=== PATIENT | female | born 1995 | race Caucasian/White ===

== ENCOUNTER 2022-01-31 08:25 | Emergency (ER) | payer OTHER, SELFPAY ==
[2022-01-31 08:36] VITALS: BP 158/97; PULSE 100; RESP 16; TEMP 36.6; O2SAT 99; BMI 29.4
--- NOTE | 2022-01-31 09:23 | ED.SKABFB ---
HPI - Skin/Abscess/Foreign Bdy General Chief complaint: Skin/Abscess/Foreign Body Stated complaint: anxiety. stepped on needle in alley way Time Seen by Provider: 01/31/22 08:40 Source: patient Mode of arrival: ambulatory History of Present Illness HPI narrative: 26-year-old female with no significant past medical history presenting to the ED complaining of needlestick to right great toe s/p stepping on needle in the alleyway around 02:00AM. Stick did draw blood, admits to washing area right away. Reports tetanus is up-to-date. Denies injury to other area Onset (ago): hour(s) Related Data Allergies Allergy/AdvReac Type Severity Reaction Status Date / Time Penicillins [PENICILLINS] Allergy Unknown THROAT Verified 01/31/22 08:36 CLOSES Review of Systems Review of Systems: Constitutional: No Fever, No Chills ENT/Mouth: No Ear Pain, No Nasal Congestion, No sore throat, No Rhinorrhea, No Swallowing Difficulty Cardiovascular: No Chest Pain, No SOB Respiratory: No Cough, No Wheezing Gastrointestinal: No Nausea, No Vomiting, No Diarrhea, No Constipation, No Abdominal pain Genitourinary: No Dysuria, No Urinary Frequency, No Flank Pain Musculoskeletal: No joint pain, No Myalgias, No Joint Swelling Skin: + Skin Lesions, No rash Neuro: No Weakness, No Numbness, No Paresthesias Yes all other systems are reviewed and are negative Constitutional: Constitutional: Reports as per HPI [facility] Past Medical History Attestation statement: The following information was validated with the patient. Social History Social History Advance Directives: No Advance Directives Information Provided: No Physical Exam Vital Signs: Vital Signs: Last Vital Signs Temp 97.8 F 01/31/22 08:36 Pulse 100 01/31/22 08:36 Resp 16 01/31/22 08:36 BP 158/97 H 01/31/22 08:36 Pulse Ox 99 01/31/22 08:36 O2 Del Method 01/31/22 08:36 BMI result Body Mass Index 29.4 Const: General: cooperative, healthy appearing, no acute distress and poor hygiene Orientation/consciousness: patient oriented x3 Limitations: no limitations HEENT: Head: Yes normal to inspection and Yes atraumatic Ears: hearing grossly normal bilaterally General nose exam: Normal external nose present Face and sinus: Yes normal facial exam Eyes: General: appearance normal, both eyes and all related structures EOM: EOMs intact bilaterally Neck: Neck: Yes normal visual inspection and Yes no meningeal signs Resp: Effort & Inspection: normal respiratory effort and no respiratory distress Cardio: Rate: regular rate Peripheral pulses: dorsalis pedis present Skin: Other: No appreciable puncture wound. Rashes: no rashes Wounds: no wounds Neuro: General: patient oriented x3, tone normal and no meningeal signs Gait exam (Neuro): Normal gait present Extrem: General: Yes normal to inspection Course Course Course Narrative: 949--patient eloped prior to labs or treatment. Tried to get her to come back however stated she wanted out of here MDM - Skin/Abscess/Foreign Bdy MDM Narrative Medical decision making narrative: 26-year-old female with no significant past medical history presenting to the ED complaining of needlestick to right great toe s/p stepping on needle in the alleyway around 02:00AM. On exam vital signs stable, no appreciable open wound/puncture or foreign body. This was an unknown needle. Discussed risks with patient, she is interested in Post exposure prophylaxis. Will obtain labs and give PEP starter kit Medical Records Attestation: I reviewed the patient's medical records. Lab Data Attestation: I reviewed the patient's lab results. Discharge Plan Discharge Clinical Impression: Accidental hypodermic needlestick injury Patient Disposition: Elopement Instructions: Needle Stick Injuries (ED) Referrals: Kallie Dumont MD [Physician] -
== END 2022-01-31 10:35 | disposition left against medical advice (07) ==
PROVIDERS: Emergency Provider Emergency Medicine; PCP Internal Medicine
DX: S91.131A Puncture wound without foreign body of right great toe without damage to nail, initial encounter (principal); F41.1 Generalized anxiety disorder; Y28.9XXA Contact with unspecified sharp object, undetermined intent, initial encounter; Y93.9 Activity, unspecified; Y92.9 Unspecified place or not applicable; Y99.9 Unspecified external cause status
CPT/HCPCS: 99281; 99282

== ENCOUNTER 2022-02-02 13:41 | Emergency (ER) | payer OTHER, SELFPAY ==
--- NOTE | 2022-02-02 13:56 | ECG_ITS ---
Test Reason : med clearance Blood Pressure : / mmHG Vent. Rate : 061 BPM Atrial Rate : 061 BPM P-R Int : 122 ms QRS Dur : 086 ms QT Int : 400 ms P-R-T Axes : 020 004 008 degrees QTc Int : 402 ms Sinus rhythm with Premature atrial complexes Nonspecific T wave abnormality Abnormal ECG When compared with ECG of 16-JAN-2014 19:11, Premature atrial complexes are now Present Vent. rate has decreased BY 39 BPM Referred By: Cande Painter Electronically Signed By:HIWOT DEMPSEY
[2022-02-02 14:19] LABS: Appearance Urine Clear; Color Urine Yellow; Glucose Urine UA Negative (Negative); Leukocyte Esterase Urine Trace (Negative); Nitrite Urine Negative (Negative); Specific Gravity - Urine 1.015 (1.005-1.025); UMIC TRIGGER UACC YES; UPreg QC Valid YES; Urine Blood Negative (Negative); Urine Ketones Negative (Negative); Urine Pregnancy NEGATIVE (NEGATIVE); Urine Protein Negative (Neg-Trace)
[2022-02-02 14:22] LABS: Bacteria Urine Trace (None Seen); Hyaline Casts Urine 0-2 /LPF (0-2); RBC Urine 0-2 /HPF (0-2); UACC Culture Trigger YES
[2022-02-02 14:24] LABS: COVID-19 Test Positive (Negative); IDNOW Serial# 16C4AD1C
[2022-02-02 14:33] LABS: Amphetamine Screen Urine Not Detected (Not Detect); Barbiturates, Urine Not Detected (Not Detect); Benzodiazepines Screen Urine Not Detected (Not Detect); Cannabinoid Screen Urine Not Detected (Not Detect); Cocaine Screen Urine POSITIVE (Not Detect); Fentanyl, urine POSITIVE (Not Detect); Opiate Screen Urine POSITIVE (Not Detect); Phencyclidine Screen Urine Not Detected (Not Detect)
[2022-02-02 14:40] LABS: MANUAL DIFF FLAG NO
--- NOTE | 2022-02-02 14:40 | ED_ITS ---
HPI - Psych General Chief Complaint: Psychiatric Symptoms <Cande Painter CNP - Last Filed: 02/02/22 17:31> Stated Complaint: SI <Cande Reynaandrew Painter CNP - Last Filed: 02/02/22 17:31> Time Seen by Provider: 02/02/22 13:55 <Cande Painter CNP - Last Filed: 02/02/22 17:31> Source: patient <Cande Orellana JOANA Painter - Last Filed: 02/02/22 17:31> Mode of arrival: ambulatory <Cande Orellana JOANA Painter - Last Filed: 02/02/22 17:31> Limitations: no limitations <Canderoland Painter CNP - Last Filed: 02/02/22 17:31> History of Present Illness HPI Narrative: Patient presents emergency department reporting suicidal ideations. She states that she has been increasingly depressed recently. Has had thoughts of harming herself with a plan, however she is unwilling to share this plan. Denies any past suicidal attempts. She reports using heroin 1-2 bundles daily in addition to cocaine. She is interested in being started on methadone. Additionally, she is reporting that she has been feeling short of breath over the past week in addition to having a nonproductive cough. Denies fevers, chills, chest pain, nausea, vomiting, abdominal pain, dysuria, numbness or tingling of the extremities. Denies any recent unintentional weight loss or night sweats. Patient reports a history of endocarditis approximately 1 year ago which she was evaluated at [facility] for, a CT scan of her chest revealed an abnormal finding in the lung which she reports she was supposed to have a biopsy of but never had this performed as she was nervous. <Candepati Painter CNP - Last Filed: 02/02/22 17:31> Related Data Home Medications: Home Medications Medication Instructions Recorded Confirmed No Known Home Meds 02/02/22 02/02/22 <Cande Painter CNP - Last Filed: 02/02/22 17:31> Allergies/Adverse Reactions: Allergies Allergy/AdvReac Type Severity Reaction Status Date / Time Penicillins [PENICILLINS] Allergy Unknown THROAT Verified 01/31/22 08:36 CLOSES <Cande Painter CNP - Last Filed: 02/02/22 17:31> Review of Systems Review of Systems: Constitutional: No weight loss. No fever. No chills. No weakness. No fatigue. Eye: No swelling. No redness. ENT: No sore throat. No rhinorrhea. No nasal congestion. No sore throat. No difficulty swallowing. Skin: No rash. No itching. Cardiovascular: No chest pain. No chest pressure. No palpitations. No pedal edema. Respiratory: Positive shortness of breath. Positive cough. No sputum p roduction. Gastrointestinal: No anorexia. No nausea. No vomiting. No diarrhea. No abdominal pain. No blood in stool. Genitourinary: No burning micturition. No urinary frequency. No incontinence. Neurologic: No headache. No dizziness. No pre-syncope/ syncope. No unilateral weakness. No ataxia. No numbness. No tingling. Musculoskeletal: No muscle pain. No back pain. No joint pain. No stiffness. Hematologic: No bleeding. No bruising. Lymphatics: No enlarged lymph nodes. Psychiatric: Positive depression. Positive anxiety. Positive SI Endocrine: No polyuria. No polydipsia. <Cande Painter CNP - Last Filed: 02/02/22 17:31> Yes all other systems are reviewed and are negative <Cande Painter CNP - Last Filed: 02/02/22 17:31> [facility] Past Medical History Attestation statement: The following information was validated with the patient. <Cande Painter CNP - Last Filed: 02/02/22 17:31> Social History Social History: Social History Advance Directives: No <Cande Painter CNP - Last Filed: 02/02/22 17:31> Physical Exam Vital Signs: Vital Signs: Last Vital Signs Temp 97.9 F 02/03/22 22:36 Pulse 70 02/03/22 22:36 Resp 16 02/03/22 22:36 BP 132/74 02/03/22 22:36 Pulse Ox 97 02/03/22 22:36 O2 Del Method 02/03/22 22:36 BMI result Body Mass Index 28.6 <Cande Painter CNP - Last Filed: 02/02/22 17:31> Vital Signs: Last Vital Signs Temp 97.9 F 02/03/22 22:36 Pulse 70 02/03/22 22:36 Resp 16 02/03/22 22:36 BP 132/74 02/03/22 22:36 Pulse Ox 97 02/03/22 22:36 O2 Del Method 02/03/22 22:36 BMI result Body Mass Index 28.6 <Justin Gan MD - Last Filed: 02/03/22 09:28> Vital Signs: Last Vital Signs Temp 97.9 F 02/03/22 22:36 Pulse 70 02/03/22 22:36 Resp 16 02/03/22 22:36 BP 132/74 02/03/22 22:36 Pulse Ox 97 02/03/22 22:36 O2 Del Method 02/03/22 22:36 BMI result Body Mass Index 28.6 <Jenifer Land MD - Last Filed: 02/04/22 07:24> Appearance: Alert.?Oriented to person, place and time. No acute distres s.?Normal affect. Eyes: Pupils equal, round and reactive to light.? ENT: Pharynx normal.?? Neck: Normal inspection.? Neck supple.?? CVS: Heart sounds normal. Normal heart rate and rhythm.? Pulses normal.?? Respiratory: No respiratory distress.? Lung sounds clear to auscultation bilaterally?? Abdomen: Soft and non-tender. Normoactive bowel sounds. Skin: Skin warm and dry.? Normal skin color.? Extremities: No lower extremity edema.? Neuro: Moves all extremities spontaneously. Sensation intact bilaterally. CN II- XII intact. No focal neuro deficits. Ambulates with normal steady gait. <Cande Painter CNP - Last Filed: 02/02/22 17:31> Course Course Course Narrative: Patient is a 26-year-old female who presents emergency department for evaluation suicidal ideations, in addition to shortness of breath and cough. Patient with vague reports of a lung mass, for which she opted not to have a biopsy performed of. She is noted to be COVID-19 positive today which is likely to be contributing to her increasing shortness of breath over the past week. She has received a single dose of either Pfizer Moderna vaccination, uncertain which. She is overall well appearing, vital signs are stable, no tachycardia, fever, tachypnea, or hypoxia. Lung sounds are clear. No recent unintentional weight loss or night sweats associated with this. Advised she should consider outpatient follow-up with specialist for further evaluation and treatment. Will obtain basic labs, EKG, mccabe, urinalysis, urine . Patient will need to be referred to N for further evaluation and safe disposition planning. <Cande Painter CNP - Last Filed: 02/02/22 17:31> Reevaluation(s) Reevaluation #1: Patient placed in physician observation at this time as she will require additional time to be evaluated by N. Patient conscious alert and oriented x4. Calm and cooperative. In no apparent distress. Vital signs are stable. <Cande Painter CNP - Last Filed: 02/02/22 17:31> Time: 17:22 <Cande Painter CNP - Last Filed: 02/02/22 17:31> Reevaluation #2: Patient COVID positive with increased depression suicidal ideation will be seen by crisis. Vitals are stable , last night uneventful patient medically cleared <Justin Gan MD - Last Filed: 02/03/22 09:28> Time: 09:26 <Justin Gan MD - Last Filed: 02/03/22 09:28> Reevaluation #3: VSS, COVID positive, depression and SI, no event reported by the nurses overnight, bed search is underway continue with physician observation. <Jenifer Land MD - Last Filed: 02/04/22 07:24> Time: 07:23 <Jenifer Land MD - Last Filed: 02/04/22 07:24> MDM - Psych Medical Records Attestation: I reviewed the patient's medical records. <Cande Painter CNP - Last Filed: 02/02/22 17:31> Lab Data Attestation: I reviewed the patient's lab results. <Cande Painter CNP - Last Filed: 02/02/22 17:31> Result diagrams: : 02/02/22 14:36 02/02/22 14:36 <Cande Painter, PROTOZOOLOGIST - Last Filed: 02/02/22 17:31> Labs: Lab Results 02/02/22 02/02/22 02/02/22 Range/Units 14:09 14:09 14:09 WBC (4.8-10.8) X10*3/uL RBC (4.20-5.50) X10*6/uL Hgb (12.0-16.0) g/dl Hct (37.0-47.0) % MCV (80.0-98.0) fL MCH (27.0-33.0) pg MCHC (31.0-35.0) g/dl RDW (11.0-16.0) % Plt Count (160-400) X10*3/uL MPV (9.4-12.3) fL Immature Gran % (Auto) (0.0-0.4) % Neut % (Auto) (45-73) % Lymph % (Auto) (20-40) % Summers % (Auto) (2-11) % Eos % (Auto) (0-4) % Baso % (Auto) (0-2) % Lymph # (Auto) (1.2-4.9) X10*3/uL Summers # (Auto) (0.1-1.2) X10*3/uL Eos # (Auto) (0.0-0.4) X10*3/uL Baso # (Auto) (0.0-0.2) X10*3/uL Abs Immat Gran (auto) (0.00-0.03) X10*3/uL Absolute Neuts (auto) (2.0-8.3) x10*3/uL Absolute Nucleated RBC (0.0-0.012) X10*3/uL Nucleated RBC % (auto) (0.0-0.2) /100WBC Sodium (135-145) mmol/L Potassium (3.3-5.1) mmol/L Chloride (96-108) mmol/L Carbon Dioxide (22-29) mmol/L Anion Gap (12-20) BUN (9-16) mg/dL Creatinine (0.5-1.4) mg/dL Estim Creat Clear Calc Estimated GFR Random Glucose (60-115) mg/dL Calcium (8.4-10.2) mg/dL Total Bilirubin (0.0-1.0) mg/dL AST (5-31) U/L ALT (0-31) U/L Alkaline Phosphatase (39-117) U/L Total Protein (6.5-8.0) g/dL Albumin (3.5-5.0) g/dL Urine Color Yellow Urine Appearance Clear Urine pH 6.0 (5.0-9.0) Ur Specific [place] 1.015 (1.005-1.025) Urine Protein Negative (Neg-Trace) mg/dL Urine Glucose (UA) Negative (Negative) mg/dL Urine Ketones Negative (Negative) mg/dL Urine Blood Negative (Negative) Urine Nitrite Negative (Negative) Ur Leukocyte Esterase Trace H (Negative) Urine RBC 0-2 (0-2) /HPF Urine WBC 6-10 H (0-5) /HPF Ur Squamous Epith Cells 6-10 (0-2) /HPF Urine Bacteria Trace (None Seen) Hyaline Casts 0-2 (0-2) /LPF Urine Test NEGATIVE (NEGATIVE) Urine Opiates Screen (Not Detect) Urine Fentanyl Screen (Not Detect) Ur Barbiturates Screen (Not Detect) Ur Phencyclidine Scrn (Not Detect) Ur Amphetamines Screen (Not Detect) U Benzodiazepines Scrn (Not Detect) Urine Cocaine Screen (Not Detect) U Marijuana (THC) Screen (Not Detect) Ethyl Alcohol mg/dL COVID-19 (LUX) Positive A (Negative) COVID-19 Clin Com See Note 02/02/22 02/02/22 02/02/22 Range/Units 14:09 14:36 14:36 WBC 3.8 L (4.8-10.8) X10*3/uL RBC 4.34 (4.20-5.50) X10*6/uL Hgb 9.0 L (12.0-16.0) g/dl Hct 29.9 L (37.0-47.0) % MCV 68.9 L (80.0-98.0) fL MCH 20.7 L (27.0-33.0) pg MCHC 30.1 L (31.0-35.0) g/dl RDW 15.8 (11.0-16.0) % Plt Count 296 (160-400) X10*3/uL MPV 10.4 (9.4-12.3) fL Immature Gran % (Auto) 0.3 (0.0-0.4) % Neut % (Auto) 56.4 (45-73) % Lymph % (Auto) 34.7 (20-40) % Summers % (Auto) 5.2 (2-11) % Eos % (Auto) 2.6 (0-4) % Baso % (Auto) 0.8 (0-2) % Lymph # (Auto) 1.3 (1.2-4.9) X10*3/uL Summers # (Auto) 0.2 (0.1-1.2) X10*3/uL Eos # (Auto) 0.1 (0.0-0.4) X10*3/uL Baso # (Auto) 0.0 (0.0-0.2) X10*3/uL Abs Immat Gran (auto) 0.01 (0.00-0.03) X10*3/uL Absolute Neuts (auto) 2.2 (2.0-8.3) x10*3/uL Absolute Nucleated RBC 0.000 (0.0-0.012) X10*3/uL Nucleated RBC % (auto) 0.0 (0.0-0.2) /100WBC Sodium 139 (135-145) mmol/L Potassium 3.9 (3.3-5.1) mmol/L Chloride 104 (96-108) mmol/L Carbon Dioxide 25 (22-29) mmol/L Anion Gap 14 (12-20) BUN 9 (9-16) mg/dL Creatinine 0.71 (0.5-1.4) mg/dL Estim Creat Clear Calc 117.5 Estimated GFR > 60 Random Glucose 95 (60-115) mg/dL Calcium 9.0 (8.4-10.2) mg/dL Total Bilirubin < 0.2 (0.0-1.0) mg/dL AST 16 (5-31) U/L ALT 14 (0-31) U/L Alkaline Phosphatase 81 (39-117) U/L Total Protein 8.2 H (6.5-8.0) g/dL Albumin 3.9 (3.5-5.0) g/dL Urine Color Urine Appearance Urine pH (5.0-9.0) Ur Specific [place] (1.005-1.025) Urine Protein (Neg-Trace) mg/dL Urine Glucose (UA) (Negative) mg/dL Urine Ketones (Negative) mg/dL Urine Blood (Negative) Urine Nitrite (Negative) Ur Leukocyte Esterase (Negative) Urine RBC (0-2) /HPF Urine WBC (0-5) /HPF Ur Squamous Epith Cells (0-2) /HPF Urine Bacteria (None Seen) Hyaline Casts (0-2) /LPF Urine Test (NEGATIVE) Urine Opiates Screen POSITIVE H (Not Detect) Urine Fentanyl Screen POSITIVE H (Not Detect) Ur Barbiturates Screen Not Detected (Not Detect) Ur Phencyclidine Scrn Not Detected (Not Detect) Ur Amphetamines Screen Not Detected (Not Detect) U Benzodiazepines Scrn Not Detected (Not Detect) Urine Cocaine Screen POSITIVE H (Not Detect) U Marijuana (THC) Screen Not Detected (Not Detect) Ethyl Alcohol < 10 mg/dL COVID-19 (LUX) (Negative) COVID-19 Clin Com <Cande Painter, PROTOZOOLOGIST - Last Filed: 02/02/22 17:31> Lab Results 02/02/22 02/02/22 02/02/22 Range/Units 14:09 14:09 14:09 WBC (4.8-10.8) X10*3/uL RBC (4.20-5.50) X10*6/uL Hgb (12.0-16.0) g/dl Hct (37.0-47.0) % MCV (80.0-98.0) fL MCH (27.0-33.0) pg MCHC (31.0-35.0) g/dl RDW (11.0-16.0) % Plt Count (160-400) X10*3/uL MPV (9.4-12.3) fL Immature Gran % (Auto) (0.0-0.4) % Neut % (Auto) (45-73) % Lymph % (Auto) (20-40) % Summers % (Auto) (2-11) % Eos % (Auto) (0-4) % Baso % (Auto) (0-2) % Lymph # (Auto) (1.2-4.9) X10*3/uL Summers # (Auto) (0.1-1.2) X10*3/uL Eos # (Auto) (0.0-0.4) X10*3/uL Baso # (Auto) (0.0-0.2) X10*3/uL Abs Immat Gran (auto) (0.00-0.03) X10*3/uL Absolute Neuts (auto) (2.0-8.3) x10*3/uL Absolute Nucleated RBC (0.0-0.012) X10*3/uL Nucleated RBC % (auto) (0.0-0.2) /100WBC Sodium (135-145) mmol/L Potassium (3.3-5.1) mmol/L Chloride (96-108) mmol/L Carbon Dioxide (22-29) mmol/L Anion Gap (12-20) BUN (9-16) mg/dL Creatinine (0.5-1.4) mg/dL Estim Creat Clear Calc Estimated GFR Random Glucose (60-115) mg/dL Calcium (8.4-10.2) mg/dL Total Bilirubin (0.0-1.0) mg/dL AST (5-31) U/L ALT (0-31) U/L Alkaline Phosphatase (39-117) U/L Total Protein (6.5-8.0) g/dL Albumin (3.5-5.0) g/dL Urine Color Yellow Urine Appearance Clear Urine pH 6.0 (5.0-9.0) Ur Specific [place] 1.015 (1.005-1.025) Urine Protein Negative (Neg-Trace) mg/dL Urine Glucose (UA) Negative (Negative) mg/dL Urine Ketones Negative (Negative) mg/dL Urine Blood Negative (Negative) Urine Nitrite Negative (Negative) Ur Leukocyte Esterase Trace H (Negative) Urine RBC 0-2 (0-2) /HPF Urine WBC 6-10 H (0-5) /HPF Ur Squamous Epith Cells 6-10 (0-2) /HPF Urine Bacteria Trace (None Seen) Hyaline Casts 0-2 (0-2) /LPF Urine Test NEGATIVE (NEGATIVE) Urine Opiates Screen (Not Detect) Urine Fentanyl Screen (Not Detect) Ur Barbiturates Screen (Not Detect) Ur Phencyclidine Scrn (Not Detect) Ur Amphetamines Screen (Not Detect) U Benzodiazepines Scrn (Not Detect) Urine Cocaine Screen (Not Detect) U Marijuana (THC) Screen (Not Detect) Ethyl Alcohol mg/dL COVID-19 (LUX) Positive A (Negative) COVID-19 Clin Com See Note 02/02/22 02/02/22 02/02/22 Range/Units 14:09 14:36 14:36 WBC 3.8 L (4.8-10.8) X10*3/uL RBC 4.34 (4.20-5.50) X10*6/uL Hgb 9.0 L (12.0-16.0) g/dl Hct 29.9 L (37.0-47.0) % MCV 68.9 L (80.0-98.0) fL MCH 20.7 L (27.0-33.0) pg MCHC 30.1 L (31.0-35.0) g/dl RDW 15.8 (11.0-16.0) % Plt Count 296 (160-400) X10*3/uL MPV 10.4 (9.4-12.3) fL Immature Gran % (Auto) 0.3 (0.0-0.4) % Neut % (Auto) 56.4 (45-73) % Lymph % (Auto) 34.7 (20-40) % Summers % (Auto) 5.2 (2-11) % Eos % (Auto) 2.6 (0-4) % Baso % (Auto) 0.8 (0-2) % Lymph # (Auto) 1.3 (1.2-4.9) X10*3/uL Summers # (Auto) 0.2 (0.1-1.2) X10*3/uL Eos # (Auto) 0.1 (0.0-0.4) X10*3/uL Baso # (Auto) 0.0 (0.0-0.2) X10*3/uL Abs Immat Gran (auto) 0.01 (0.00-0.03) X10*3/uL Absolute Neuts (auto) 2.2 (2.0-8.3) x10*3/uL Absolute Nucleated RBC 0.000 (0.0-0.012) X10*3/uL Nucleated RBC % (auto) 0.0 (0.0-0.2) /100WBC Sodium 139 (135-145) mmol/L Potassium 3.9 (3.3-5.1) mmol/L Chloride 104 (96-108) mmol/L Carbon Dioxide 25 (22-29) mmol/L Anion Gap 14 (12-20) BUN 9 (9-16) mg/dL Creatinine 0.71 (0.5-1.4) mg/dL Estim Creat Clear Calc 117.5 Estimated GFR > 60 Random Glucose 95 (60-115) mg/dL Calcium 9.0 (8.4-10.2) mg/dL Total Bilirubin < 0.2 (0.0-1.0) mg/dL AST 16 (5-31) U/L ALT 14 (0-31) U/L Alkaline Phosphatase 81 (39-117) U/L Total Protein 8.2 H (6.5-8.0) g/dL Albumin 3.9 (3.5-5.0) g/dL Urine Color Urine Appearance Urine pH (5.0-9.0) Ur Specific [place] (1.005-1.025) Urine Protein (Neg-Trace) mg/dL Urine Glucose (UA) (Negative) mg/dL Urine Ketones (Negative) mg/dL Urine Blood (Negative) Urine Nitrite (Negative) Ur Leukocyte Esterase (Negative) Urine RBC (0-2) /HPF Urine WBC (0-5) /HPF Ur Squamous Epith Cells (0-2) /HPF Urine Bacteria (None Seen) Hyaline Casts (0-2) /LPF Urine Test (NEGATIVE) Urine Opiates Screen POSITIVE H (Not Detect) Urine Fentanyl Screen POSITIVE H (Not Detect) Ur Barbiturates Screen Not Detected (Not Detect) Ur Phencyclidine Scrn Not Detected (Not Detect) Ur Amphetamines Screen Not Detected (Not Detect) U Benzodiazepines Scrn Not Detected (Not Detect) Urine Cocaine Screen POSITIVE H (Not Detect) U Marijuana (THC) Screen Not Detected (Not Detect) Ethyl Alcohol < 10 mg/dL COVID-19 (LUX) (Negative) COVID-19 Clin Com <Justin Gan MD - Last Filed: 02/03/22 09:28> Lab Results 02/02/22 02/02/22 02/02/22 Range/Units 14:09 14:09 14:09 WBC (4.8-10.8) X10*3/uL RBC (4.20-5.50) X10*6/uL Hgb (12.0-16.0) g/dl Hct (37.0-47.0) % MCV (80.0-98.0) fL MCH (27.0-33.0) pg MCHC (31.0-35.0) g/dl RDW (11.0-16.0) % Plt Count (160-400) X10*3/uL MPV (9.4-12.3) fL Immature Gran % (Auto) (0.0-0.4) % Neut % (Auto) (45-73) % Lymph % (Auto) (20-40) % Summers % (Auto) (2-11) % Eos % (Auto) (0-4) % Baso % (Auto) (0-2) % Lymph # (Auto) (1.2-4.9) X10*3/uL [place] # (Auto) (0.1-1.2) X10*3/uL Eos # (Auto) (0.0-0.4) X10*3/uL Baso # (Auto) (0.0-0.2) X10*3/uL Abs Immat Gran (auto) (0.00-0.03) X10*3/uL Absolute Neuts (auto) (2.0-8.3) x10*3/uL Absolute Nucleated RBC (0.0-0.012) X10*3/uL Nucleated RBC % (auto) (0.0-0.2) /100WBC Sodium (135-145) mmol/L Potassium (3.3-5.1) mmol/L Chloride (96-108) mmol/L Carbon Dioxide (22-29) mmol/L Anion Gap (12-20) BUN (9-16) mg/dL Creatinine (0.5-1.4) mg/dL Estim Creat Clear Calc Estimated GFR Random Glucose (60-115) mg/dL Calcium (8.4-10.2) mg/dL Total Bilirubin (0.0-1.0) mg/dL AST (5-31) U/L ALT (0-31) U/L Alkaline Phosphatase (39-117) U/L Total Protein (6.5-8.0) g/dL Albumin (3.5-5.0) g/dL Urine Color Yellow Urine Appearance Clear Urine pH 6.0 (5.0-9.0) Ur Specific [place] 1.015 (1.005-1.025) Urine Protein Negative (Neg-Trace) mg/dL Urine Glucose (UA) Negative (Negative) mg/dL Urine Ketones Negative (Negative) mg/dL Urine Blood Negative (Negative) Urine Nitrite Negative (Negative) Ur Leukocyte Esterase Trace H (Negative) Urine RBC 0-2 (0-2) /HPF Urine WBC 6-10 H (0-5) /HPF Ur Squamous Epith Cells 6-10 (0-2) /HPF Urine Bacteria Trace (None Seen) Hyaline Casts 0-2 (0-2) /LPF Urine Test NEGATIVE (NEGATIVE) Urine Opiates Screen (Not Detect) Urine Fentanyl Screen (Not Detect) Ur Barbiturates Screen (Not Detect) Ur Phencyclidine Scrn (Not Detect) Ur Amphetamines Screen (Not Detect) U Benzodiazepines Scrn (Not Detect) Urine Cocaine Screen (Not Detect) U Marijuana (THC) Screen (Not Detect) Ethyl Alcohol mg/dL COVID-19 (LUX) Positive A (Negative) COVID-19 Clin Com See Note 02/02/22 02/02/22 02/02/22 Range/Units 14:09 14:36 14:36 WBC 3.8 L (4.8-10.8) X10*3/uL RBC 4.34 (4.20-5.50) X10*6/uL Hgb 9.0 L (12.0-16.0) g/dl Hct 29.9 L (37.0-47.0) % MCV 68.9 L (80.0-98.0) fL MCH 20.7 L (27.0-33.0) pg MCHC 30.1 L (31.0-35.0) g/dl RDW 15.8 (11.0-16.0) % Plt Count 296 (160-400) X10*3/uL MPV 10.4 (9.4-12.3) fL Immature Gran % (Auto) 0.3 (0.0-0.4) % Neut % (Auto) 56.4 (45-73) % Lymph % (Auto) 34.7 (20-40) % [place] % (Auto) 5.2 (2-11) % Eos % (Auto) 2.6 (0-4) % Baso % (Auto) 0.8 (0-2) % Lymph # (Auto) 1.3 (1.2-4.9) X10*3/uL [place] # (Auto) 0.2 (0.1-1.2) X10*3/uL Eos # (Auto) 0.1 (0.0-0.4) X10*3/uL Baso # (Auto) 0.0 (0.0-0.2) X10*3/uL Abs Immat Gran (auto) 0.01 (0.00-0.03) X10*3/uL Absolute Neuts (auto) 2.2 (2.0-8.3) x10*3/uL Absolute Nucleated RBC 0.000 (0.0-0.012) X10*3/uL Nucleated RBC % (auto) 0.0 (0.0-0.2) /100WBC Sodium 139 (135-145) mmol/L Potassium 3.9 (3.3-5.1) mmol/L Chloride 104 (96-108) mmol/L Carbon Dioxide 25 (22-29) mmol/L Anion Gap 14 (12-20) BUN 9 (9-16) mg/dL Creatinine 0.71 (0.5-1.4) mg/dL Estim Creat Clear Calc 117.5 Estimated GFR > 60 Random Glucose 95 (60-115) mg/dL Calcium 9.0 (8.4-10.2) mg/dL Total Bilirubin < 0.2 (0.0-1.0) mg/dL AST 16 (5-31) U/L ALT 14 (0-31) U/L Alkaline Phosphatase 81 (39-117) U/L Total Protein 8.2 H (6.5-8.0) g/dL Albumin 3.9 (3.5-5.0) g/dL Urine Color Urine Appearance Urine pH (5.0-9.0) Ur Specific [place] (1.005-1.025) Urine Protein (Neg-Trace) mg/dL Urine Glucose (UA) (Negative) mg/dL Urine Ketones (Negative) mg/dL Urine Blood (Negative) Urine Nitrite (Negative) Ur Leukocyte Esterase (Negative) Urine RBC (0-2) /HPF Urine WBC (0-5) /HPF Ur Squamous Epith Cells (0-2) /HPF Urine Bacteria (None Seen) Hyaline Casts (0-2) /LPF Urine Test (NEGATIVE) Urine Opiates Screen POSITIVE H (Not Detect) Urine Fentanyl Screen POSITIVE H (Not Detect) Ur Barbiturates Screen Not Detected (Not Detect) Ur Phencyclidine Scrn Not Detected (Not Detect) Ur Amphetamines Screen Not Detected (Not Detect) U Benzodiazepines Scrn Not Detected (Not Detect) Urine Cocaine Screen POSITIVE H (Not Detect) U Marijuana (THC) Screen Not Detected (Not Detect) Ethyl Alcohol < 10 mg/dL COVID-19 (LUX) (Negative) COVID-19 Clin Com <Jenifer Land MD - Last Filed: 02/04/22 07:24> Discharge Plan Discharge Clinical Impression: Suicidal ideation, Depression <Cande Painter CNP - Last Filed: 02/02/22 17:31> Patient Disposition: Still a Patient <Cande Painter CNP - Last Filed: 02/02/22 17:31> Prescriptions: No Action No Known Home Meds <Cande Painter CNP - Last Filed: 02/02/22 17:31>
[2022-02-02 14:43] LABS: Basophils Percent Auto 0.8 % (0-2); Eosinophils Absolute Auto 0.1 X10*3/uL (0.0-0.4); Eosinophils Percent Auto 2.6 % (0-4); Hematocrit 29.9 % (37.0-47.0); Imm Gran Abs Auto 0.01 X10*3/uL (0.00-0.03); Imm Gran Pct Auto 0.3 % (0.0-0.4); Lymphocytes Absolute Auto 1.3 X10*3/uL (1.2-4.9); Lymphocytes Percent Auto 34.7 % (20-40); Mean Corpuscular HGB Conc 30.1 g/dl (31.0-35.0); Mean Corpuscular Hemoglobin 20.7 pg (27.0-33.0); Mean Corpuscular Volume 68.9 fL (80.0-98.0); Mean Platelet Volume 10.4 fL (9.4-12.3); Monocytes Absolute Auto 0.2 X10*3/uL (0.1-1.2); Monocytes Percent Auto 5.2 % (2-11); Neutrophils Absolute Auto 2.2 x10*3/uL (2.0-8.3); Neutrophils Percent Auto 56.4 % (45-73); Platelet Count 296 X10*3/uL (160-400); Red Blood Count 4.34 X10*6/uL (4.20-5.50); Red Cell Distribution Width 15.8 % (11.0-16.0); White Blood Count 3.8 X10*3/uL (4.8-10.8)
[2022-02-02 15:01] VITALS: BP 151/103; PULSE 84; RESP 18; TEMP 36.8; O2SAT 98; BMI 28.6
[2022-02-02 15:08] LABS: Alanine Aminotransferase 14 U/L (0-31); Albumin Level 3.9 g/dL (3.5-5.0); Alkaline Phosphatase 81 U/L (39-117); Anion Gap 14 (12-20); Aspartate Amino Transferase 16 U/L (5-31); Bilirubin Total < 0.2 mg/dL (0.0-1.0); Blood Urea Nitrogen 9 mg/dL (9-16); Carbon Dioxide 25 mmol/L (22-29); Chloride 104 mmol/L (96-108); Creatinine Clr Calc Pharmacy 117.5; Estimated Glomerular Filt Rate > 60; Ethanol < 10 mg/dL; Glucose Random 95 mg/dL (60-115); Potassium 3.9 mmol/L (3.3-5.1); Sodium 139 mmol/L (135-145); Total Protein 8.2 g/dL (6.5-8.0)
--- NOTE | 2022-02-02 16:36 | MHC.RECOVSUP ---
Addendum entered by Sergey Elizabeth [facility] 02/02/22 20:12: RN informed this freelance copywriter that patient is requesting methadone. This freelance copywriter met with patient to discuss withdrawal management. Patient reports withdrawal symptoms and that she has been on methadone in the past. Patient reports she has been connected with [facility] and the [place] [place] [facility]. Patient reports she does not have an ID on her at this time but believes she does in [place] with her father. Discussed with patient that she would need an ID to continue with methadone maintenance and patient acknowledged. Discussed with ED provider. Plan for patient to receive 20mg of methadone while awaiting [facility]. Patient will need last dose letter prior to discharge. Original Note: Recovery Support note: Patient is a 26 year old [place]ian speaking female who presented to [facility] ED due to SI and substance use. This freelance copywriter met with patient to discuss substance use and withdrawal management. Patient reported to this freelance copywriter that she wants to leave. Crisis process explained to patient. Patient continues to request to leave. Patient does not want to discuss recovery at this time. Encouraged patient to inform staff if she changes her mind. Discussed with RN and ED provider.
[2022-02-02 17:07] VITALS: BP 132/79; PULSE 74; RESP 18; TEMP 36.4; O2SAT 98
[2022-02-02 17:25] VITALS: PULSE 74
[2022-02-02] MEDS: methADONE HCl 20 MG/2 ML ORAL.CONC PO (18:12)
[2022-02-02 23:50] VITALS: BP 138/78; PULSE 57; RESP 16; TEMP 36.9; O2SAT 95
[2022-02-03] MEDS: LORazepam 1 MG TABLET 2 MG PO ×2 (00:27→21:45)
--- NOTE | 2022-02-03 06:51 | PC.NURSE ---
Patient slept through the night, no distress observed/reported, at mid night patient requested medication for comfort, Ativan 2 mg PO administered as ordered at 0027, N attempted to speak with patient through phone, patient spoke with [facility] clinician for few minutes then refused to continue to the assessment because she wants to speak face to face, which is not feasible to [facility] clinician due to her medical condition and patient's covid positive status, [facility] will reevaluate patient in the morning, VSS, behavior non concerning, will continue to monitor.
[2022-02-03] MEDS: methADONE HCl 20 MG/2 ML ORAL.CONC PO (10:58)
[2022-02-03 13:02] VITALS: BP 131/77; PULSE 70; RESP 16; TEMP 36.6; O2SAT 97
[2022-02-03] MEDS: hydrOXYzine HCL 50 MG TABLET PO (14:01)
[2022-02-03] MEDS: cloNIDine HCL 0.2 MG TABLET PO (14:01)
[2022-02-03] MEDS: Nicotine Polacrilex 2 MG GUM BUCCAL (14:37)
[2022-02-03 22:36] VITALS: BP 132/74; PULSE 70; RESP 16; TEMP 36.6; O2SAT 97
[2022-02-04] MEDS: LORazepam 1 MG TABLET 2 MG PO (05:25)
--- NOTE | 2022-02-04 06:28 | PC.NURSE ---
Patient slept through the night, no distress observed/reported, Ativan 2 mg PO administered at 2145 and 0525 with + effect, medication compliant, dispsotion per N is section 12 inpatient bed search, behavior pleasant and non concerning, VSS, will continue to monitor.
--- NOTE | 2022-02-04 09:30 | MHC.RECOVSUP ---
Recovery Support note: This technical report writer met with patient to discuss methadone maintenance. Patient continues to report that she would like to continue with methadone treatment and that she believes she has an ID at home. CRISTINE faxed to [facility]. Staff at [facility] confirm that she has been established with the clinic and that she can return Mon-Fri with a last dose letter and resume services. This technical report writer explained that patient may not have ID immediately available and staff report it would not be an issue as this patient is known to them.
[2022-02-04] MEDS: methADONE HCl 20 MG/2 ML ORAL.CONC 30 MG PO (13:13)
== END 2022-02-04 14:09 | disposition home or self-care (01) ==
PROVIDERS: Nurse Practitioner Family; Emergency Provider Emergency Medicine Emergency Medical Services
DX: U07.1 COVID-19 (principal); R45.851 Suicidal ideations; F32.A Depression, unspecified; F14.90 Cocaine use, unspecified, uncomplicated; F19.90 Other psychoactive substance use, unspecified, uncomplicated
CPT/HCPCS: 80053; 80307; 81001; 81025; 82077; 85025; 87086; 87147; 87635; 93005; 99285

== ENCOUNTER 2022-02-11 01:55 | Emergency (ER) | payer OTHER, SELFPAY ==
[2022-02-11 02:26] VITALS: BP 152/92; PULSE 98; RESP 16; TEMP 37; O2SAT 97; BMI 27.1
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
[2022-02-11 04:45] VITALS: BP 118/68; PULSE 68; RESP 18; O2SAT 98
[2022-02-11 10:16] VITALS: BP 142/59; PULSE 79; RESP 18; TEMP 36.6; O2SAT 97
[2022-02-11 11:16] VITALS: BP 121/94; PULSE 83; RESP 20; O2SAT 99
[2022-02-11] MEDS: cloNIDine HCL 0.2 MG TABLET PO (11:24)
[2022-02-11] MEDS: methADONE HCl 20 MG/2 ML ORAL.CONC PO (12:23)
--- NOTE | 2022-02-11 13:48 | MHC.RECOVSUP ---
? Reason for consult:OPI o Current location:ED6H o Identified substance use concern: - Withdrawal - Seeking ATS (detox) - Support ? Intervention: o ATS bed search started/completed/in process o Harm reduction discussion ? Plan: o Referral to [facility] o Bed search in progress to:[facility] o Patient awaiting crisis evaluation ? Additional information: RC met with pt, upon talking with pt she informed me that she wants treatment, I started the bed search, found a bed at [facility], waiting for Carre Team to clear pt.
--- NOTE | 2022-02-11 13:54 | PM.EVENT ---
Event Note Date of Service: 02/11/22 Event Note: Addiction consult Case discussed with Dr. García. Patient currently in ED awaiting crisis evaluation Reporting opioid withdrawal. Methadone 20mg ordered and administered with additional 10mg PRN X1 Chart reviewed--patient recently in ED and started on methadone with plan to follow up with outpatient OTP. Plan: 30mg methadone in AM reassess
[2022-02-11 14:16] VITALS: BP 103/48; PULSE 70; RESP 16; O2SAT 99
--- NOTE | 2022-02-11 15:53 | MHC.CARE ---
CARE team clinician met with pt for risk assessment. Pt was seen by Recovery team where dispo for detox was identified. Pt endorsed SI while completing intake for detox and was asked to be seen by CARE team. CARE team clinician met with pt who was alert and oriented. Pt continues to endorse vague SI with no plan. Pt reports she has had SI on and off for the past few months. Pt denies any past attempts or hospitalizations, dx PTSD and anxiety. Pt reports she feels safe d/c to detox. She denies any AH/VH/ HI. CARE team clinician followed up with [facility]. They have completed intake, waiting for RN clearance to admit pt.
== END 2022-02-11 16:55 ==
PROVIDERS: Emergency Provider Emergency Medicine
DX: F33.1 Major depressive disorder, recurrent, moderate (principal); R45.851 Suicidal ideations; F60.0 Paranoid personality disorder; Z79.899 Other long term (current) drug therapy
CPT/HCPCS: 96372; 99283; 99284

== ENCOUNTER 2022-02-21 01:50 | Inpatient (IN) | payer OTHER, SELFPAY ==
--- NOTE | ~2022-02-21 | XR_ITS ---
EXAMINATION: XR CHEST CLINICAL INFORMATION: Shortness of breath COMPARISON: Previous chest x-ray July 2019 TECHNIQUE: Frontal view of the chest was obtained. FINDINGS: No significant abnormality is noted involving the heart, lungs, mediastinum, bony thorax or soft tissues. XR/XR chest 1V IMPRESSION: Unremarkable examination.
[2022-02-21 02:01] VITALS: BP 149/101; PULSE 101; RESP 22; TEMP 37; O2SAT 100; BMI 26.6
[2022-02-21 02:29] LABS: Appearance Urine Clear; Color Urine Yellow; Glucose Urine UA Negative (Negative); Leukocyte Esterase Urine Negative (Negative); Nitrite Urine Negative (Negative); Specific Gravity - Urine 1.025 (1.005-1.025); UMIC TRIGGER UA YES; Urine Blood Negative (Negative); Urine Ketones Trace mg/dL (Negative); Urine Protein 30 (1+) mg/dL (Neg-Trace)
[2022-02-21 02:30] LABS: UPreg QC Valid YES; Urine Pregnancy NEGATIVE (NEGATIVE)
[2022-02-21 02:43] LABS: Bacteria Urine None Seen (None Seen); Calcium Oxalate Crystals Urine Present; WBC Urine 0-5 /HPF (0-5)
[2022-02-21 02:49] LABS: COVID-19 Test Negative (Negative)
--- NOTE | 2022-02-21 02:52 | PC.NURSE ---
Patient was admitted to room 6, she appears anxious, paranoid ,not feeling safe with people. refusing any labs at this moment. Will continue to monitor.
[2022-02-21 02:53] LABS: Amphetamine Screen Urine POSITIVE (Not Detect); Barbiturates, Urine Not Detected (Not Detect); Benzodiazepines Screen Urine Not Detected (Not Detect); Cannabinoid Screen Urine Not Detected (Not Detect); Cocaine Screen Urine POSITIVE (Not Detect); Fentanyl, urine POSITIVE (Not Detect); Opiate Screen Urine Not Detected (Not Detect); Phencyclidine Screen Urine Not Detected (Not Detect)
--- NOTE | 2022-02-21 04:20 | ED.PSYCH ---
HPI - Psych General Chief Complaint: Psychiatric Symptoms Stated Complaint: hearing voices Time Seen by Provider: 02/21/22 02:05 Source: patient Mode of arrival: EMS Limitations: no limitations History of Present Illness HPI Narrative: Patient with history of polysubstance abuse using cocaine and heroin came with paranoid hallucinations hearing voices denies any HI or SI patient been in an out on the hospital's for similar situations Related Data Home Medications Medication Instructions Recorded Confirmed hydroxyzine HCl 25 mg tablet 1 tab PO BID PRN Anxiety 02/21/22 02/21/22 nicotine (polacrilex) 4 mg buccal 4 mg PO Q2H PRN Nicotine Cravings 02/21/22 02/21/22 lozenge nicotine 21 mg/24 hr daily 1 patch topical DAILY 02/21/22 02/21/22 transdermal patch quetiapine 25 mg tablet 25 mg PO QAM PRN Anxiety 02/21/22 02/21/22 quetiapine 25 mg tablet 50 mg PO BEDTIME PRN Anxiety 02/21/22 02/21/22 Allergies Allergy/AdvReac Type Severity Reaction Status Date / Time Penicillins [PENICILLINS] Allergy Unknown THROAT Verified 02/21/22 02:04 CLOSES Review of Systems Review of Systems: Yes all other systems are reviewed and are negative [facility] Past Medical History Medical History Major depression Social History Social History Advance Directives: No Advance Directives Information Provided: Yes Physical Exam Vital Signs: Vital Signs: Last Vital Signs Temp 98.6 F 02/21/22 02:01 Pulse 101 H 02/21/22 02:01 Resp 22 H 02/21/22 02:01 BP 149/101 H 02/21/22 02:01 Pulse Ox 100 02/21/22 02:01 O2 Del Method 02/21/22 02:01 BMI result Body Mass Index 26.6 Appearance: Alert. Oriented X3. No acute distress. Eyes: PERRLA, No Nystagmus ENT: Pharynx normal. Oral Mucosa moist Neck: Normal inspection. Neck supple. CVS: Normal heart rate and rhythm. Pulses normal. Respiratory: No respiratory distress. Equal air entry bilateral, no wheezing/rales/rhonchi Abdomen: Soft and nontender. Bowel sounds are present, no mass palpable, no CVA tenderness Skin: Skin warm and dry. Normal skin color. Normal skin turgor. Extremities: No lower extremity edema. No calf tenderness IVDA track garcia Psych: Mood stable denies any SI or SI no hallucinations at this time Neuro: Oriented X 3. No motor deficit. No sensory deficit.No cerebellar signs , cranial nerves II-XII intact MDM - Psych Lab Data Attestation: I reviewed the patient's lab results. Labs: Lab Results 02/21/22 02/21/22 02/21/22 Range/Units 02:18 02:18 02:18 Urine Color Urine Appearance Urine pH (5.0-9.0) Ur Specific [place] (1.005-1.025) Urine Protein (Neg-Trace) mg/dL Urine Glucose (UA) (Negative) mg/dL Urine Ketones (Negative) mg/dL Urine Blood (Negative) Urine Nitrite (Negative) Ur Leukocyte Esterase (Negative) Urine RBC (0-2) /HPF Urine WBC (0-5) /HPF Ur Squamous Epith Cells (0-2) /HPF Calcium Oxalate Crystal Urine Bacteria (None Seen) Hyaline Casts (0-2) /LPF Urine Test NEGATIVE (NEGATIVE) Urine Opiates Screen Not Detected (Not Detect) Urine Fentanyl Screen POSITIVE H (Not Detect) Ur Barbiturates Screen Not Detected (Not Detect) Ur Phencyclidine Scrn Not Detected (Not Detect) Ur Amphetamines Screen POSITIVE H (Not Detect) U Benzodiazepines Scrn Not Detected (Not Detect) Urine Cocaine Screen POSITIVE H (Not Detect) U Marijuana (THC) Screen Not Detected (Not Detect) COVID-19 (LUX) Negative (Negative) COVID-19 Clin Com See Note 02/21/22 Range/Units 02:18 Urine Color Yellow Urine Appearance Clear Urine pH 7.0 (5.0-9.0) Ur Specific [place] 1.025 (1.005-1.025) Urine Protein 30 (1+) H (Neg-Trace) mg/dL Urine Glucose (UA) Negative (Negative) mg/dL Urine Ketones Trace (Negative) mg/dL Urine Blood Negative (Negative) Urine Nitrite Negative (Negative) Ur Leukocyte Esterase Negative (Negative) Urine RBC 6-10 H (0-2) /HPF Urine WBC 0-5 (0-5) /HPF Ur Squamous Epith Cells 3-5 (0-2) /HPF Calcium Oxalate Crystal Present Urine Bacteria None Seen (None Seen) Hyaline Casts 3-5 (0-2) /LPF Urine Test (NEGATIVE) Urine Opiates Screen (Not Detect) Urine Fentanyl Screen (Not Detect) Ur Barbiturates Screen (Not Detect) Ur Phencyclidine Scrn (Not Detect) Ur Amphetamines Screen (Not Detect) U Benzodiazepines Scrn (Not Detect) Urine Cocaine Screen (Not Detect) U Marijuana (THC) Screen (Not Detect) COVID-19 (LUX) (Negative) COVID-19 Clin Com Discharge Plan Discharge Clinical Impression: Drug-induced psychotic disorder, Polysubstance abuse Patient Disposition: Still a Patient Prescriptions: No Action quetiapine 25 mg tablet 50 mg PO BEDTIME PRN (Reason: Anxiety) quetiapine 25 mg tablet 25 mg PO QAM PRN (Reason: Anxiety) nicotine 21 mg/24 hr patch 24 hour 1 patch topical DAILY hydroxyzine HCl 25 mg tablet 1 tab PO BID PRN (Reason: Anxiety) nicotine (polacrilex) 4 mg lozenge 4 mg PO Q2H PRN (Reason: Nicotine Cravings)
[2022-02-21] MEDS: Acetaminophen 325 MG TABLET 650 MG PO ×2 (04:22→12:28)
[2022-02-21] MEDS: LORazepam 1 MG TABLET 2 MG PO ×2 (04:26→20:52)
--- NOTE | 2022-02-21 04:31 | PC.NURSE ---
Patient awake, anxious, C/O headache, Tylenol and Ativan po given. Will continue to monitor.
--- NOTE | 2022-02-21 06:01 | PC.NURSE ---
Patient sleeping comfortably, no distress noted. Will continue to monitor.
--- NOTE | 2022-02-21 06:38 | MHC.CARE ---
Smart sheet submitted
--- NOTE | 2022-02-21 09:01 | ECG_ITS ---
Test Reason : medical clearance Blood Pressure : / mmHG Vent. Rate : 077 BPM Atrial Rate : 077 BPM P-R Int : 130 ms QRS Dur : 086 ms QT Int : 362 ms P-R-T Axes : 059 017 023 degrees QTc Int : 409 ms Normal sinus rhythm with sinus arrhythmia Normal ECG When compared with ECG of 02-FEB-2022 15:45, Premature atrial complexes are no longer Present T wave inversion no longer evident in Anterior leads Referred By: Lin Lane Electronically Signed By:HIWOT DEMPSEY
[2022-02-21 09:58] LABS: Hematocrit 33.3 % (37.0-47.0); Hemoglobin 10.3 g/dl (12.0-16.0); Mean Corpuscular HGB Conc 30.9 g/dl (31.0-35.0); Mean Corpuscular Hemoglobin 20.8 pg (27.0-33.0); Mean Corpuscular Volume 67.3 fL (80.0-98.0); Mean Platelet Volume 9.6 fL (9.4-12.3); Platelet Count 267 X10*3/uL (160-400); Red Blood Count 4.95 X10*6/uL (4.20-5.50); Red Cell Distribution Width 16.6 % (11.0-16.0); White Blood Count 5.1 X10*3/uL (4.8-10.8)
[2022-02-21 10:17] LABS: Alanine Aminotransferase 33 U/L (0-31); Albumin Level 4.2 g/dL (3.5-5.0); Alkaline Phosphatase 76 U/L (39-117); Anion Gap 14 (12-20); Aspartate Amino Transferase 27 U/L (5-31); Bilirubin Total 0.3 mg/dL (0.0-1.0); Blood Urea Nitrogen 15 mg/dL (9-16); Calcium 9.6 mg/dL (8.4-10.2); Carbon Dioxide 26 mmol/L (22-29); Chloride 103 mmol/L (96-108); Creatinine Clr Calc Pharmacy 107.1; Estimated Glomerular Filt Rate > 60; Glucose Random 93 mg/dL (60-115); Sodium 139 mmol/L (135-145); Total Protein 8.1 g/dL (6.5-8.0)
[2022-02-21 15:30] VITALS: BP 126/85; PULSE 87; RESP 16; TEMP 36.8; O2SAT 100
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
[2022-02-21] MEDS: risperiDONE 1 MG TABLET PO ×2 (16:30→20:23)
[2022-02-21] MEDS: hydrOXYzine HCL 50 MG TABLET PO ×2 (16:30→22:12)
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
[2022-02-21 18:56] VITALS: BMI 27.9
[2022-02-21] MEDS: HaloperidoL 5 MG TABLET PO (20:51)
[2022-02-21] MEDS: Nicotine Polacrilex 2 MG GUM BUCCAL ×2 (20:52→22:13)
[2022-02-21] MEDS: traZODone HCL 100 MG TABLET PO (22:12)
[2022-02-22] VITALS (12 sets, daily range): BP systolic 113–166; BP diastolic 70–95; PULSE 79–138; RESP 16–24; TEMP 36.7–37.6; O2SAT 97–100; BMI 27.9
--- NOTE | 2022-02-22 | ECG_ITS ---
Test Reason : cp Blood Pressure : / mmHG Vent. Rate : 079 BPM Atrial Rate : 079 BPM P-R Int : 136 ms QRS Dur : 088 ms QT Int : 382 ms P-R-T Axes : 062 017 037 degrees QTc Int : 438 ms Sinus rhythm with marked sinus arrhythmia Possible Left atrial enlargement Borderline ECG When compared with ECG of 21-FEB-2022 10:05, No significant change was found Referred By: Johnathan Boss Electronically Signed By:HIWOT DEMPSEY
[2022-02-22] MEDS: traZODone HCL 100 MG TABLET PO (00:17)
[2022-02-22] MEDS: Acetaminophen 325 MG TABLET 650 MG PO (09:18)
[2022-02-22] MEDS: hydrOXYzine HCL 50 MG TABLET PO (09:18)
[2022-02-22] MEDS: risperiDONE 1 MG TABLET PO (09:18)
[2022-02-22] MEDS: Nicotine Polacrilex 2 MG GUM BUCCAL ×2 (09:33→12:20)
[2022-02-22] MEDS: Benztropine Mesylate 2 MG/2 ML VIAL 1 MG IM ×2 (10:03→18:01)
[2022-02-22] MEDS: diazePAM 10 MG/2 ML CARTRIDGE 5 MG IM (10:07)
[2022-02-22] MEDS: diphenhydrAMINE HCL 50 MG/ML VIAL IM (10:10)
--- NOTE | 2022-02-22 10:15 | PM.EVENT ---
Event Note Date of Service: 02/22/22 Event Note: Rapid response was called around 10 am. the patient was complaining of her throat feeling tightness after taking her morning pills including Risperidone (new med), Atarax. Psych team tried using Diazepam, Benztropine and Benadryl with no significant improvement. Vital signs within normal, O2 sat 98% on RA, noted fair air entry bilaterally To give racemic epinephrine nebulizor and monitor response. Discuss Psych team about current medications. the patient improved after treatment with no reported complication. Repeated vitals within normal as O2 sat 100% On room air in the afternoon.
--- NOTE | 2022-02-22 12:55 | PC.NURSE ---
Late entry: At approximately 10 AM patient reported 'tightening' of her throat, difficulty breathing and jaw pain left jaw. Provider contacted, patient given IM injections as ordered. Patient became increasingly uncomfortable, rapid response called, patioent recveived nebulizer of racemic epi. Patient reported relief of symptoms with IM injections and nebulizer, and is currently, awake, alert, denies any further symptoms. 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
[2022-02-22] MEDS: methADONE HCl 20 MG/2 ML ORAL.CONC 30 MG PO (14:18)
--- NOTE | 2022-02-22 14:28 | P.PNPSI_ITS ---
Subjective Subjective Date of Service: 02/22/22 Reason For Visit: SI Subjective Notes: Conditional Voluntary Interim History: Pt in opioid withdrawal- emesis, GI s/s, muscleaches. She is much clear in terms of paranoia/confusion. She wants to resume methadone. She was given methadone 30mg po, awaiting consult from addictions medicine. Pt had what appeared to be pharengeal dystonic reaction given IM cogentin, diazepan, benadryl with good effect. haldol listed as allergy. Medication Compliance: Yes Review of Systems Review of Systems Yes all other systems are reviewed and are negative Constitutional: Reports as per HPI Mental Status Exam Mental Status Exam Narrative: awake, alert, ill appearing Diagnostics Vital Signs (24Hr): Vital Signs - 24 hr 02/22/22 10:00 02/22/22 12:44 02/22/22 10:45 Temperature Pulse Rate 130 H 134 H 138 H Respiratory Rate 24 H 24 H 20 Blood Pressure 127/85 123/87 126/76 Pulse Oximetry 99 98 99 Oxygen Delivery Method Room Air Room Air Room Air 02/22/22 11:50 02/22/22 14:46 02/22/22 17:15 Temperature Pulse Rate 125 H 91 102 H Respiratory Rate 18 20 20 Blood Pressure 113/70 147/94 H 164/93 H Pulse Oximetry 100 100 100 Oxygen Delivery Method Room Air Room Air Room Air 02/22/22 17:37 02/22/22 17:35 02/22/22 18:27 Temperature 99.6 F Pulse Rate 98 104 H 107 H Respiratory Rate 16 22 H 20 Blood Pressure 142/88 H 143/93 H 163/95 H Pulse Oximetry 100 97 98 Oxygen Delivery Method Room Air Room Air Room Air 02/22/22 20:40 02/22/22 22:30 Temperature 98.3 F 99.7 F Pulse Rate 79 83 Respiratory Rate 18 18 Blood Pressure 164/90 H 166/84 H Pulse Oximetry 100 99 Oxygen Delivery Method Room Air Room Air BMI result Body Mass Index 27.9 Labs Results: 02/21/22 09:50 02/21/22 09:50 Labs: Laboratory Results - last 48 hr 02/21/22 02/21/22 09:50 09:50 WBC 5.1 RBC 4.95 Hgb 10.3 L Hct 33.3 L MCV 67.3 L MCH 20.8 L MCHC 30.9 L RDW 16.6 H Plt Count 267 MPV 9.6 Absolute Nucleated RBC 0.000 Nucleated RBC % (auto) 0.0 Sodium 139 Potassium 4.0 Chloride 103 Carbon Dioxide 26 Anion Gap 14 BUN 15 D Creatinine 0.78 Estim Creat Clear Calc 107.1 Estimated GFR > 60 Random Glucose 93 Calcium 9.6 D Total Bilirubin 0.3 AST 27 D ALT 33 H Alkaline Phosphatase 76 Total Protein 8.1 H Albumin 4.2 Imaging Radiology Impressions: ITS Impressions Chest X-Ray 02/22/22 18:25 IMPRESSION: Unremarkable examination. Medications Medications Current Medications Acetaminophen (Acetaminophen 325 Mg Tablet) 650 mg PO Q6H PRN PRN Reason: Headache/Pain Mild Scale (1-3) Last Admin: 02/23/22 02:27 Dose: 650 mg Al Hydroxide/Mg Hydroxide (Magnesium Hydrox/Alum Hydrox 30 Ml Oral.Susp) 30 ml PO Q6H PRN PRN Reason: Heartburn/Nausea Baclofen (Baclofen 10 Mg Tablet) 10 mg PO TID PRN PRN Reason: muscle spams Benztropine Mesylate (Benztropine Mesylate 1 Mg Tablet) 1 mg PO Q6H PRN PRN Reason: Extrapyramidal Effects Clonidine HCl (Clonidine Hcl 0.1 Mg Tablet) 0.1 mg PO TID PRN; Protocol PRN Reason: opioid withdrawal/anxiety Last Admin: 02/22/22 17:20 Dose: 0.1 mg Diphenhydramine HCl (Diphenhydramine Hcl 25 Mg Tablet) 50 mg PO Q6H PRN PRN Reason: Allergic Reaction Last Admin: 02/23/22 05:49 Dose: 50 mg Famotidine (Famotidine 20 Mg Tablet) 20 mg PO BID JOHN Last Admin: 02/23/22 02:29 Dose: Not Given Hydroxyzine HCl (Hydroxyzine Hcl 50 Mg Tablet) 50 mg PO Q6H PRN PRN Reason: Anxiety Last Admin: 02/23/22 02:27 Dose: 50 mg Loperamide HCl (Loperamide Hcl 2 Mg Capsule) 4 mg PO Q4H PRN PRN Reason: loose stools Magnesium Hydroxide (Milk Of Magnesia 30 Ml Oral.Susp) 30 ml PO DAILY PRN PRN Reason: Constipation Methadone HCl (Methadone Hcl 20 Mg/2 Ml Oral.Conc) 10 mg PO ONCE PRN PRN Reason: Opiate Withdrawal Last Admin: 02/22/22 17:12 Dose: 10 mg Methadone HCl (Methadone Hcl 20 Mg/2 Ml Oral.Conc) 30 mg PO DAILY [facility] Last Admin: 02/23/22 08:26 Dose: 30 mg Nicotine Polacrilex (Nicotine Polacrilex 2 Mg Gum) 2 mg BUCCAL Q2H PRN PRN Reason: Nicotine Cravings Last Admin: 02/23/22 02:27 Dose: 2 mg Ondansetron HCl (Ondansetron Odt 4 Mg Tab.Rapdis) 4 mg TRANSLINGU Q6H PRN PRN Reason: Nausea Last Admin: 02/22/22 15:04 Dose: 4 mg Prednisone (Prednisone 20 Mg Tablet) 40 mg PO BIDWM [facility] Risperidone (Risperidone 0.5 Mg Tablet) 0.5 mg PO BID [facility] Last Admin: 02/23/22 02:27 Dose: 0.5 mg Allergies Allergies Allergy/AdvReac Type Severity Reaction Status Date / Time Penicillins [PENICILLINS] Allergy Unknown THROAT Verified 02/21/22 02:04 CLOSES haloperidol AdvReac Severe pharingeal Verified 02/22/22 12:48 dystonia Assessment & Plan Assessment & Plan (1) Drug-induced psychotic disorder: Status: Acute Code(s): F19.959 - Other psychoactive substance use, unspecified with psychoactive substance-induced psychotic disorder, unspecified (2) Opioid use disorder: Status: Acute Code(s): F11.90 - Opioid use, unspecified, uncomplicated (3) Opioid withdrawal: Status: Acute Code(s): F11.93 - Opioid use, unspecified with withdrawal Assessment and Plan: * unclear how much time passed between methadoen dose admin and when patient vomitied, would not recommend giving same dose. * 10mg PRN dose ordered if patient continues to c/o withdrawal sx during the evening * 30mg ordered for AM * continue to use comfort medications as appropriate * will follow up in AM Plan 02/22 pt much more clear in terms of psychosis/paranoid induced by substances. pt in opioid withdrawal restarted on methadone, seen by addiction;s specialist. I spent minutes with the patient and/or on the patient floor today, greater than?50% of which was spent counseling/coordinating care. Reason for contiued inpatient stay Substantial Risk for: inability to function
--- NOTE | 2022-02-22 14:45 | PC.NURSE ---
Patient reporting she vomited the methadone, and stated that she feels her throat is 'closing' again. Provider aware, in to evaluate.
[2022-02-22] MEDS: LORazepam 1 MG TABLET PO (15:03)
[2022-02-22] MEDS: diphenhydrAMINE HCL 25 MG TABLET 50 MG PO (15:03)
[2022-02-22] MEDS: Famotidine 20 MG TABLET PO (15:03)
[2022-02-22] MEDS: Ondansetron ODT 4 MG TAB.RAPDIS TRANSLINGU ×2 (15:04→19:13)
--- NOTE | 2022-02-22 15:36 | PC.NURSE ---
despite medications given, patient continues to vomit, provider notified.
[2022-02-22] MEDS: ondansetron HCL 4 MG/2 ML VIAL 8 MG IM (16:09)
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
[2022-02-22] MEDS: methADONE HCl 20 MG/2 ML ORAL.CONC 10 MG PO (17:12)
[2022-02-22] MEDS: cloNIDine HCL 0.1 MG TABLET PO (17:20)
--- NOTE | 2022-02-22 17:52 | PM.EVENT ---
Event Note Date of Service: 02/22/22 Event Note: Rapid response called around 5:30 similar presentation as earlier - feeling throat tigtness, sob no tachypnea, no accessory muscle use. o2 sat 98% on room air and other vitals stable good air entry with no wheezing on exam ? med reaction benadryl, pepcid already ordered will start po prednisone cxr ordered
--- NOTE | 2022-02-22 18:52 | PC.NURSE ---
Late entry for 173: Patient reporting sensation of throat closing. Vitals taken, continues to haven o2 sat >98% Provider called, rapid response called after speaking w/ provider. Patient evaluated, unable to tolerate albuterol updraft due to n/v. Given Cogentin IM- denies SOB but states her throat is not back to normal. Continues w/ n/v despite Zofran given. Provider notified- Zofran PO given. Awaiting prednisone from pharmacy.
[2022-02-22] MEDS: predniSONE 20 MG TABLET 60 MG PO (19:11)
[2022-02-22] MEDS: hydrOXYzine HCL 50 MG/ML VIAL IM (22:57)
[2022-02-22] MEDS: Prochlorperazine Edisylate 10 MG/2 ML VIAL IM (22:58)
[2022-02-22] MEDS: Ketorolac Tromethamine 30 MG/ML VIAL IM (23:00)
[2022-02-23] MEDS: risperiDONE 0.5 MG TABLET PO (02:27)
[2022-02-23] MEDS: Acetaminophen 325 MG TABLET 650 MG PO ×3 (02:27→20:37)
[2022-02-23] MEDS: hydrOXYzine HCL 50 MG TABLET PO (02:27)
[2022-02-23] MEDS: Nicotine Polacrilex 2 MG GUM BUCCAL ×4 (02:27→20:37)
[2022-02-23] MEDS: diphenhydrAMINE HCL 25 MG TABLET 50 MG PO ×2 (05:49→20:37)
--- NOTE | 2022-02-23 06:58 | PM.EVENT ---
Event Note Date of Service: 02/23/22 Event Note: I was asked to see the pt for complaints of headache and constant n/vomiting around 11 pm. Pt has significant anxiety. given compazine, hydroxyzine and toradol IM.
[2022-02-23] MEDS: methADONE HCl 20 MG/2 ML ORAL.CONC 30 MG PO (08:26)
[2022-02-23] MEDS: LORazepam 1 MG TABLET PO (10:13)
[2022-02-23] MEDS: Famotidine 20 MG TABLET PO ×2 (10:13→20:37)
[2022-02-23] MEDS: predniSONE 20 MG TABLET 40 MG PO ×2 (10:13→17:35)
--- NOTE | 2022-02-23 10:21 | PC.NURSE ---
Patient reports she has been able to tolerate liquids, mild nausea but no vomiting. Patient encouraged to hydrate, and increase diet to solid food as tolerated. Patient denies SOB or any symptoms of throat constriction.
[2022-02-23 10:23] VITALS: BP 123/63; PULSE 127; RESP 18; TEMP 37.1; O2SAT 98
--- NOTE | 2022-02-23 11:16 | HO.PSYCHPN ---
Subjective Subjective Date of Service: 02/23/22 Reason For Visit: SI Subjective Notes: Conditional Voluntary Interim History: Pt reports feeling better. No signs of psychosis. No AH/VH. She reports she wants to leave soon, despite fact that medically we want to make sure pt not dehydrated, suspect she is craving substances. Pt denies SI/HI. Sleep is fair. Review of Systems Review of Systems Yes all other systems are reviewed and are negative Constitutional: Reports as per HPI Mental Status Exam Mental Status Exam Narrative: Appearance: casually groomed, fair hygiene in NAD Behavior:cooperative psychomotor: no agitation or retardation noted Speech:clear, normal rate/rhythm/volume, spontaneous Thought process:linear Thought content: no signs of psychosis, wanting to leave soon Mood: better Affect: ill appearing s/s to opioid withdrawal SI:none HI:none VH/AH:none Delusions:none Insight/judgment:poor x 2. Memory/cog: alert, oriented x 3. Patient Behavior: Talkative and Cooperative Mood Description: Appropriate Affect Description: Appropriate Patient Cognition Impaired: No Ability to Follow Directions: Excellent Speech Pattern: Clear Diagnostics Vital Signs (24Hr): Vital Signs - 24 hr 02/23/22 10:23 02/23/22 17:40 02/23/22 20:45 Temperature 98.7 F 97.9 F Pulse Rate 127 H 96 90 Respiratory Rate 18 20 16 Blood Pressure 123/63 121/78 108/59 L Pulse Oximetry 98 98 97 Oxygen Delivery Method Room Air Room Air Room Air 02/24/22 02:47 02/24/22 09:08 Temperature 97.8 F Pulse Rate 87 85 Respiratory Rate 18 18 Blood Pressure 146/74 H 98/63 Pulse Oximetry 96 97 Oxygen Delivery Method Room Air Room Air BMI result Body Mass Index 27.9 Labs Results: 02/21/22 09:50 02/21/22 09:50 Imaging Radiology Impressions: ITS Impressions Chest X-Ray 02/22/22 18:25 IMPRESSION: Unremarkable examination. Medications Medications Current Medications Acetaminophen (Acetaminophen 325 Mg Tablet) 650 mg PO Q6H PRN PRN Reason: Headache/Pain Mild Scale (1-3) Last Admin: 02/24/22 02:45 Dose: 650 mg Al Hydroxide/Mg Hydroxide (Magnesium Hydrox/Alum Hydrox 30 Ml Oral.Susp) 30 ml PO Q6H PRN PRN Reason: Heartburn/Nausea Baclofen (Baclofen 10 Mg Tablet) 10 mg PO TID PRN PRN Reason: muscle spams Last Admin: 02/24/22 02:45 Dose: 10 mg Benztropine Mesylate (Benztropine Mesylate 1 Mg Tablet) 1 mg PO Q6H PRN PRN Reason: Extrapyramidal Effects Clonidine HCl (Clonidine Hcl 0.1 Mg Tablet) 0.1 mg PO TID PRN; Protocol PRN Reason: opioid withdrawal/anxiety Last Admin: 02/24/22 02:44 Dose: 0.1 mg Diphenhydramine HCl (Diphenhydramine Hcl 25 Mg Tablet) 50 mg PO Q6H PRN PRN Reason: Allergic Reaction Last Admin: 02/23/22 20:37 Dose: 50 mg Famotidine (Famotidine 20 Mg Tablet) 20 mg PO BID [facility] Last Admin: 02/24/22 09:09 Dose: 20 mg Hydroxyzine HCl (Hydroxyzine Hcl 50 Mg Tablet) 50 mg PO Q6H PRN PRN Reason: Anxiety Last Admin: 02/24/22 02:45 Dose: 50 mg Loperamide HCl (Loperamide Hcl 2 Mg Capsule) 4 mg PO Q4H PRN PRN Reason: loose stools Magnesium Hydroxide (Milk Of Magnesia 30 Ml Oral.Susp) 30 ml PO DAILY PRN PRN Reason: Constipation Methadone HCl (Methadone Hcl 20 Mg/2 Ml Oral.Conc) 30 mg PO DAILY [facility] Last Admin: 02/24/22 09:09 Dose: 30 mg Nicotine Polacrilex (Nicotine Polacrilex 2 Mg Gum) 2 mg BUCCAL Q2H PRN PRN Reason: Nicotine Cravings Last Admin: 02/24/22 02:45 Dose: 2 mg Ondansetron HCl (Ondansetron Odt 4 Mg Tab.Rapdis) 4 mg TRANSLINGU Q6H PRN PRN Reason: Nausea Last Admin: 02/23/22 20:37 Dose: 4 mg Prednisone (Prednisone 20 Mg Tablet) 40 mg PO BIDWM [facility] Last Admin: 02/24/22 09:09 Dose: 40 mg Risperidone (Risperidone 0.5 Mg Tablet) 0.5 mg PO BID [facility] Last Admin: 02/23/22 10:16 Dose: Not Given Allergies Allergies Allergy/AdvReac Type Severity Reaction Status Date / Time Penicillins [PENICILLINS] Allergy Unknown THROAT Verified 02/21/22 02:04 CLOSES haloperidol AdvReac Severe pharingeal Verified 02/22/22 12:48 dystonia Assessment & Plan Assessment & Plan (1) Drug-induced psychotic disorder: Status: Acute Code(s): F19.959 - Other psychoactive substance use, unspecified with psychoactive substance-induced psychotic disorder, unspecified (2) Opioid use disorder: Status: Acute Code(s): F11.90 - Opioid use, unspecified, uncomplicated Assessment and Plan: methadone increased to 40mg QD referral to community OTP not placed as it is reported patient will be discharged to [place] [facility] facility once psychiatrically stable Plan 02/23 pt appears much less psychotic, less confused than when she first was brought in by police. Pt several episodes of emesis, monitoring for dehydration, pt with limited to no insight into substance use. I spent minutes with the patient and/or on the patient floor today, greater than?50% of which was spent counseling/coordinating care. Reason for contiued inpatient stay Substantial Risk for: inability to function
--- NOTE | 2022-02-23 12:10 | PC.NURSE ---
Patient offered flu vaccine and is declining but will notify staff if she changes her mind.
--- NOTE | 2022-02-23 16:18 | HO.ADDICTPRO ---
Subjective Subjective Date of Service: 02/23/22 Reason For Visit: SI Interim History: Patient seen in follow up Awake, alert, pleasant and engaged in interview. Patient reporting 10mg last evening and 30mg methadone this morning effective in managing withdrawal sx. Would like to continue increasing dose. Reporting she was engaged in treatment at [facility] about 6-7 months ago and [facility] about 2 years ago. She reports longest period in recovery was 2 years (from age [age]). Discussed current use, she identifies cocaine as a major ongoing issue for her and spoke of using it in a somewhat romanticized way. I love it so much, but I know I can't keep doing it...but it's so good . Reports history of benzodiazepine use disorder. Denies any current use. Denies alcohol use. Numerous injection garcia noted on bilateral arms and legs from injecting cocaine. None appeared to be infected. Discussed plans following discharge and patient requesting to be referred to [facility]. Unsure where she will be staying maybe my ex boyfriends house, or my fathers house . Discussed what brought her to the hospital, patient reporting that she believed she was being harassed while in [place], but maybe none of that was real. 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 Review of Systems Constitutional: Reports as per HPI Mental Status Exam Mental Status Exam Patient Appearance: Appropriate Patient Orientation: Person, Place, Time and Situation Level of Consciousness: Awake and Appropriate Patient Behavior: Talkative and Cooperative Mood Description: Appropriate Affect Description: Appropriate Patient Cognition Impaired: No Ability to Follow Directions: Excellent Speech Pattern: Clear Hallucinations: None (denies, however noted to be preoccupied ) Thought Process: Intact Thought Content: positive for Goal Oriented Judgement: Poor Diagnostics Vital Signs (24Hr): Vital Signs - 24 hr 02/22/22 17:15 02/22/22 17:37 02/22/22 17:35 Temperature 99.6 F Pulse Rate 102 H 98 104 H Respiratory Rate 20 16 22 H Blood Pressure 164/93 H 142/88 H 143/93 H Pulse Oximetry 100 100 97 Oxygen Delivery Method Room Air Room Air Room Air 02/22/22 18:27 02/22/22 20:40 02/22/22 22:30 Temperature 98.3 F 99.7 F Pulse Rate 107 H 79 83 Respiratory Rate 20 18 18 Blood Pressure 163/95 H 164/90 H 166/84 H Pulse Oximetry 98 100 99 Oxygen Delivery Method Room Air Room Air Room Air 02/23/22 10:23 Temperature 98.7 F Pulse Rate 127 H Respiratory Rate 18 Blood Pressure 123/63 Pulse Oximetry 98 Oxygen Delivery Method Room Air BMI result Body Mass Index 27.9 Labs Results: 02/21/22 09:50 02/21/22 09:50 Imaging Radiology Impressions: ITS Impressions Chest X-Ray 02/22/22 18:25 IMPRESSION: Unremarkable examination. Medications Medications Current Medications Acetaminophen (Acetaminophen 325 Mg Tablet) 650 mg PO Q6H PRN PRN Reason: Headache/Pain Mild Scale (1-3) Last Admin: 02/23/22 11:37 Dose: 650 mg Al Hydroxide/Mg Hydroxide (Magnesium Hydrox/Alum Hydrox 30 Ml Oral.Susp) 30 ml PO Q6H PRN PRN Reason: Heartburn/Nausea Baclofen (Baclofen 10 Mg Tablet) 10 mg PO TID PRN PRN Reason: muscle spams Benztropine Mesylate (Benztropine Mesylate 1 Mg Tablet) 1 mg PO Q6H PRN PRN Reason: Extrapyramidal Effects Clonidine HCl (Clonidine Hcl 0.1 Mg Tablet) 0.1 mg PO TID PRN; Protocol PRN Reason: opioid withdrawal/anxiety Last Admin: 02/22/22 17:20 Dose: 0.1 mg Diphenhydramine HCl (Diphenhydramine Hcl 25 Mg Tablet) 50 mg PO Q6H PRN PRN Reason: Allergic Reaction Last Admin: 02/23/22 05:49 Dose: 50 mg Famotidine (Famotidine 20 Mg Tablet) 20 mg PO BID [facility] Last Admin: 02/23/22 10:13 Dose: 20 mg Hydroxyzine HCl (Hydroxyzine Hcl 50 Mg Tablet) 50 mg PO Q6H PRN PRN Reason: Anxiety Last Admin: 02/23/22 02:27 Dose: 50 mg Loperamide HCl (Loperamide Hcl 2 Mg Capsule) 4 mg PO Q4H PRN PRN Reason: loose stools Magnesium Hydroxide (Milk Of Magnesia 30 Ml Oral.Susp) 30 ml PO DAILY PRN PRN Reason: Constipation Methadone HCl (Methadone Hcl 20 Mg/2 Ml Oral.Conc) 30 mg PO DAILY [facility] Last Admin: 02/23/22 08:26 Dose: 30 mg Nicotine Polacrilex (Nicotine Polacrilex 2 Mg Gum) 2 mg BUCCAL Q2H PRN PRN Reason: Nicotine Cravings Last Admin: 02/23/22 11:38 Dose: 2 mg Ondansetron HCl (Ondansetron Odt 4 Mg Tab.Rapdis) 4 mg TRANSLINGU Q6H PRN PRN Reason: Nausea Last Admin: 02/22/22 15:04 Dose: 4 mg Prednisone (Prednisone 20 Mg Tablet) 40 mg PO BIDWM [facility] Last Admin: 02/23/22 10:13 Dose: 40 mg Risperidone (Risperidone 0.5 Mg Tablet) 0.5 mg PO BID [facility] Last Admin: 02/23/22 10:16 Dose: Not Given Allergies Allergies Allergy/AdvReac Type Severity Reaction Status Date / Time Penicillins [PENICILLINS] Allergy Unknown THROAT Verified 02/21/22 02:04 CLOSES haloperidol AdvReac Severe pharingeal Verified 02/22/22 12:48 dystonia Assessment & Plan Assessment & Plan (1) Opioid use disorder: Status: Acute Code(s): F11.90 - Opioid use, unspecified, uncomplicated Assessment and Plan: methadone increased to 40mg QD referral to community OTP not placed as it is reported patient will be discharged to [place] [id number] facility once psychiatrically stable (2) Opioid withdrawal: Status: Acute Code(s): F11.93 - Opioid use, unspecified with withdrawal Assessment and Plan: resolved I spent ___40___ minutes with the patient and/or on the patient floor today, greater than?50% of which was spent counseling/coordinating care.
[2022-02-23 17:40] VITALS: BP 121/78; PULSE 96; RESP 20; O2SAT 98
[2022-02-23] MEDS: cloNIDine HCL 0.1 MG TABLET PO (17:43)
[2022-02-23] MEDS: Ondansetron ODT 4 MG TAB.RAPDIS TRANSLINGU (20:37)
[2022-02-23 20:45] VITALS: BP 108/59; PULSE 90; RESP 16; TEMP 36.6; O2SAT 97
[2022-02-24] MEDS: cloNIDine HCL 0.1 MG TABLET PO ×3 (02:44→19:49)
[2022-02-24] MEDS: hydrOXYzine HCL 50 MG TABLET PO (02:45)
[2022-02-24] MEDS: Nicotine Polacrilex 2 MG GUM BUCCAL ×5 (02:45→19:53)
[2022-02-24] MEDS: Baclofen 10 MG TABLET PO (02:45)
[2022-02-24] MEDS: Acetaminophen 325 MG TABLET 650 MG PO ×2 (02:45→12:10)
[2022-02-24 02:47] VITALS: BP 146/74; PULSE 87; RESP 18; O2SAT 96
[2022-02-24 09:08] VITALS: BP 98/63; PULSE 85; RESP 18; TEMP 36.6; O2SAT 97
[2022-02-24] MEDS: Famotidine 20 MG TABLET PO ×2 (09:09→19:49)
[2022-02-24] MEDS: methADONE HCl 20 MG/2 ML ORAL.CONC 30 MG PO (09:09)
[2022-02-24] MEDS: predniSONE 20 MG TABLET 40 MG PO ×2 (09:09→18:05)
[2022-02-24 11:14] LABS: Cholesterol 151 mg/dL; HDL Cholesterol 54 mg/dL; LDL Cholesterol Calculated 83 mg/dl; Triglycerides 71 mg/dL
[2022-02-24 11:23] LABS: Alanine Aminotransferase 16 U/L (0-31); Albumin Level 4.3 g/dL (3.5-5.0); Alkaline Phosphatase 71 U/L (39-117); Anion Gap 15 (12-20); Aspartate Amino Transferase 14 U/L (5-31); Bilirubin Total 0.3 mg/dL (0.0-1.0); Blood Urea Nitrogen 16 mg/dL (9-16); Calcium 9.8 mg/dL (8.4-10.2); Carbon Dioxide 26 mmol/L (22-29); Chloride 100 mmol/L (96-108); Creatinine Clr Calc Pharmacy 101.7; Estimated Glomerular Filt Rate > 60; Glucose Random 132 mg/dL (60-115); Potassium 3.5 mmol/L (3.3-5.1); Sodium 137 mmol/L (135-145); Total Protein 8.5 g/dL (6.5-8.0)
[2022-02-24 11:35] LABS: TSH reflex Free T4 1.92 uIU/mL (0.32-4.0)
[2022-02-24 12:06] LABS: Folate 10.9 ng/mL (> or = 4.0); Vitamin B12 547 pg/mL (200-900)
--- NOTE | 2022-02-24 12:41 | HO.PSYCHPN ---
Subjective Subjective Date of Service: 02/24/22 Reason For Visit: SI Interim History: pt says she feels 100% better and would like discharge. Says All AH and confusion fully resolved and she thinks it was just a cocaine delirium. pt says it's never happened to her before. Denies hx of manic episodes or behavior (outside of cocaine use). Pt denies any SI/HI or avh. She does endorse active PTSD symptoms such as flashbacks that will result in depression. Discussed medications; brief trial of lamictal; was prescribed prn seroquel. Pt agrees to start Prozac for ptsd/depression/anxiety (pattern chart writer reviewed risks/side-effects; pt asked questions and understood and wants trial); she also wants trazodone continued. Mental Status Exam Mental Status Exam Narrative: Appearance: casually groomed, adequate hygiene Behavior:cooperative psychomotor: no agitation or retardation noted Speech:clear, normal rate/rhythm/volume, spontaneous Thought process:linear Thought content: no signs of psychosis, wanting to leave soon; deaaling w/ ptsd Mood: 100 % better Affect: bright, calm SI:none HI:none VH/AH:none Delusions:none Insight/judgment:fair Memory/cog: alert, oriented x 3. Diagnostics Vital Signs (24Hr): Vital Signs - 24 hr 02/23/22 17:40 02/23/22 20:45 02/24/22 02:47 Temperature 97.9 F Pulse Rate 96 90 87 Respiratory Rate 20 16 18 Blood Pressure 121/78 108/59 L 146/74 H Pulse Oximetry 98 97 96 Oxygen Delivery Method Room Air Room Air Room Air 02/24/22 09:08 Temperature 97.8 F Pulse Rate 85 Respiratory Rate 18 Blood Pressure 98/63 Pulse Oximetry 97 Oxygen Delivery Method Room Air BMI result Body Mass Index 27.9 Labs Results: 02/21/22 09:50 02/24/22 10:48 Labs: Laboratory Results - last 48 hr 02/24/22 02/24/22 02/24/22 10:48 10:48 10:48 Sodium 137 Potassium 3.5 Chloride 100 Carbon Dioxide 26 Anion Gap 15 BUN 16 Creatinine 0.84 Estim Creat Clear Calc 101.7 Estimated GFR > 60 Random Glucose 132 H Calcium 9.8 Total Bilirubin 0.3 AST 14 D ALT 16 Alkaline Phosphatase 71 Total Protein 8.5 H Albumin 4.3 Triglycerides 71 Cholesterol 151 LDL Cholesterol, Calc 83 HDL Cholesterol 54 Vitamin B12 547 Folate 10.9 TSH 1.92 Imaging Radiology Impressions: ITS Impressions Chest X-Ray 02/22/22 18:25 IMPRESSION: Unremarkable examination. Medications Medications Current Medications Acetaminophen (Acetaminophen 325 Mg Tablet) 650 mg PO Q6H PRN PRN Reason: Headache/Pain Mild Scale (1-3) Last Admin: 02/24/22 12:10 Dose: 650 mg Al Hydroxide/Mg Hydroxide (Magnesium Hydrox/Alum Hydrox 30 Ml Oral.Susp) 30 ml PO Q6H PRN PRN Reason: Heartburn/Nausea Baclofen (Baclofen 10 Mg Tablet) 10 mg PO TID PRN PRN Reason: muscle spams Last Admin: 02/24/22 02:45 Dose: 10 mg Benztropine Mesylate (Benztropine Mesylate 1 Mg Tablet) 1 mg PO Q6H PRN PRN Reason: Extrapyramidal Effects Clonidine HCl (Clonidine Hcl 0.1 Mg Tablet) 0.1 mg PO TID PRN; Protocol PRN Reason: opioid withdrawal/anxiety Last Admin: 02/24/22 10:09 Dose: 0.1 mg Diphenhydramine HCl (Diphenhydramine Hcl 25 Mg Tablet) 50 mg PO Q6H PRN PRN Reason: Allergic Reaction Last Admin: 02/23/22 20:37 Dose: 50 mg Famotidine (Famotidine 20 Mg Tablet) 20 mg PO BID [facility] Last Admin: 02/24/22 09:09 Dose: 20 mg Hydroxyzine HCl (Hydroxyzine Hcl 50 Mg Tablet) 50 mg PO Q6H PRN PRN Reason: Anxiety Last Admin: 02/24/22 02:45 Dose: 50 mg Loperamide HCl (Loperamide Hcl 2 Mg Capsule) 4 mg PO Q4H PRN PRN Reason: loose stools Magnesium Hydroxide (Milk Of Magnesia 30 Ml Oral.Susp) 30 ml PO DAILY PRN PRN Reason: Constipation Methadone HCl (Methadone Hcl 20 Mg/2 Ml Oral.Conc) 30 mg PO DAILY [facility] Last Admin: 02/24/22 09:09 Dose: 30 mg Nicotine Polacrilex (Nicotine Polacrilex 2 Mg Gum) 2 mg BUCCAL Q2H PRN PRN Reason: Nicotine Cravings Last Admin: 02/24/22 12:11 Dose: 2 mg Ondansetron HCl (Ondansetron Odt 4 Mg Tab.Rapdis) 4 mg TRANSLINGU Q6H PRN PRN Reason: Nausea Last Admin: 02/23/22 20:37 Dose: 4 mg Prednisone (Prednisone 20 Mg Tablet) 40 mg PO BIDWM [facility] Last Admin: 02/24/22 09:09 Dose: 40 mg Allergies Allergies Allergy/AdvReac Type Severity Reaction Status Date / Time Penicillins [PENICILLINS] Allergy Unknown THROAT Verified 02/21/22 02:04 CLOSES haloperidol AdvReac Severe pharingeal Verified 02/22/22 12:48 dystonia Assessment & Plan Assessment & Plan (1) Drug-induced psychotic disorder: Status: Acute Code(s): F19.959 - Other psychoactive substance use, unspecified with psychoactive substance-induced psychotic disorder, unspecified (2) Opioid use disorder: Status: Acute Code(s): F11.90 - Opioid use, unspecified, uncomplicated Assessment and Plan: methadone increased to 40mg QD referral to community OTP not placed as it is reported patient will be discharged to [facility] facility once psychiatrically stable Plan 02/23 pt appears much less psychotic, less confused than when she first was brought in by police. Pt several episodes of emesis, monitoring for dehydration, pt with limited to no insight into substance use. 02/24 no AVH, delusional thinking; no confusion.no si/hi; Pt reports better and that recent episode must have been due to cocaine. Wants Prozac for ptsd -no more Nausea/vomiting I spent minutes with the patient and/or on the patient floor today, greater than?50% of which was spent counseling/coordinating care. Patient educated on: diagnosis, medication risk/benefits and substance abuse Informed Consent: understands Reason for contiued inpatient stay Substantial Risk for: rapid decompensation and med/psych decompensation
[2022-02-24] MEDS: FLUoxetine HCl 10 MG CAPSULE PO (14:31)
[2022-02-24] MEDS: QUEtiapine Fumarate 25 MG TABLET PO (18:04)
[2022-02-24 19:45] VITALS: BP 144/68; PULSE 79; RESP 17; TEMP 36.6; O2SAT 98
[2022-02-24] MEDS: traZODone HCL 50 MG TABLET PO (20:44)
[2022-02-24] MEDS: Ibuprofen 600 MG TABLET PO (20:46)
[2022-02-25 08:00] VITALS: BP 129/67; PULSE 86; RESP 18; TEMP 36.4; O2SAT 97
[2022-02-25] MEDS: Famotidine 20 MG TABLET PO ×2 (08:11→21:25)
[2022-02-25] MEDS: predniSONE 20 MG TABLET 40 MG PO (08:11)
[2022-02-25] MEDS: FLUoxetine HCl 10 MG CAPSULE PO (08:12)
[2022-02-25] MEDS: Ibuprofen 600 MG TABLET PO ×2 (08:12→17:29)
[2022-02-25] MEDS: Milk of Magnesia 30 ML ORAL.SUSP PO (09:28)
[2022-02-25] MEDS: QUEtiapine Fumarate 25 MG TABLET PO (09:28)
[2022-02-25] MEDS: cloNIDine HCL 0.1 MG TABLET PO ×2 (09:28→17:30)
[2022-02-25] MEDS: methADONE HCl 20 MG/2 ML ORAL.CONC 30 MG PO (09:40)
[2022-02-25] MEDS: diphenhydrAMINE HCL 25 MG TABLET 50 MG PO ×2 (10:08→20:28)
[2022-02-25] MEDS: Nicotine Polacrilex 2 MG GUM BUCCAL ×2 (12:35→17:02)
[2022-02-25] MEDS: Benztropine Mesylate 1 MG TABLET PO ×2 (12:38→20:27)
[2022-02-25] MEDS: Baclofen 10 MG TABLET PO ×2 (13:10→20:27)
[2022-02-25 17:25] VITALS: BP 130/81; PULSE 70
[2022-02-25] MEDS: Nicotine Polacrilex Lozenge 4 MG LOZENGE BUCCAL ×2 (17:30→19:12)
[2022-02-25 18:46] VITALS: BP 130/67; PULSE 76; RESP 16; TEMP 36.7; O2SAT 97
--- NOTE | 2022-02-25 19:10 | HO.PSYCHPN ---
Subjective Subjective Date of Service: 02/25/22 Reason For Visit: SI Interim History: Patient says that she is feeling much better and wants to discharge. Continues to deny any AVH SI or HI or confusion. She says being on the unit is starting to bother her a lot and cites the immaturity and loudness of several male peers (who are loud and immature). Patient has a hard time accepting that the events leading up to this admission were pretty out of control and frightening and that being on the unit is partly to demonstrate continued stability and to make sure that AVH, paranoid delusional thinking remains resolved. Patient took Seroquel today, 25 mg as a p.r.n. and again had the sensation of her tongue swelling; she felt pretty strongly it is due to the food she has been eating but was able to accept it perhaps due to the medication since she had a similar more severe response to Haldol. Patient perseverates on wanting discharge and asks if she will be discharged on Saturday without a problem; copywriter tried to explain that while this is possible it is premature to promise that. Patient is able to remain calm but says she will be calling her parents to see if they can get her out of here sooner. In frustration, patient said that going forward she is going to refuse prednisone which is currently totaled at 80 mg a day; copywriter was able however to dissuade her from completely stopping this medication and offered to cut in half to 40 mg a day and initiated taper which she eventually said would be acceptable. Denies any problems with taking Prozac Mental Status Exam Mental Status Exam Narrative: Appearance: casually groomed, adequate hygiene Behavior:cooperative psychomotor: no agitation or retardation noted Speech:clear, normal rate/rhythm/volume, spontaneous Thought process:linear Thought content: wants discharge Mood: better Affect: bright, calm SI:none HI:none VH/AH:none Delusions:none Insight/judgment:fair Memory/cog: alert, oriented x 3. Diagnostics Vital Signs (24Hr): Vital Signs - 24 hr 02/24/22 19:45 02/25/22 08:00 02/25/22 17:25 Temperature 97.8 F 97.6 F Pulse Rate 79 86 70 Respiratory Rate 17 18 Blood Pressure 144/68 H 129/67 130/81 Pulse Oximetry 98 97 Oxygen Delivery Method Room Air Room Air 02/25/22 18:46 Temperature 98.1 F Pulse Rate 76 Respiratory Rate 16 Blood Pressure 130/67 Pulse Oximetry 97 Oxygen Delivery Method Room Air BMI result Body Mass Index 27.9 Labs Results: 02/21/22 09:50 02/24/22 10:48 Labs: Laboratory Results - last 48 hr 02/24/22 02/24/22 02/24/22 10:48 10:48 10:48 Sodium 137 Potassium 3.5 Chloride 100 Carbon Dioxide 26 Anion Gap 15 BUN 16 Creatinine 0.84 Estim Creat Clear Calc 101.7 Estimated GFR > 60 Random Glucose 132 H Calcium 9.8 Total Bilirubin 0.3 AST 14 D ALT 16 Alkaline Phosphatase 71 Total Protein 8.5 H Albumin 4.3 Triglycerides 71 Cholesterol 151 LDL Cholesterol, Calc 83 HDL Cholesterol 54 Vitamin B12 547 Folate 10.9 TSH 1.92 Imaging Radiology Impressions: ITS Impressions Chest X-Ray 02/22/22 18:25 IMPRESSION: Unremarkable examination. Medications Medications Current Medications Al Hydroxide/Mg Hydroxide (Magnesium Hydrox/Alum Hydrox 30 Ml Oral.Susp) 30 ml PO Q6H PRN PRN Reason: Heartburn/Nausea Albuterol Sulfate (Albuterol Sulfate 90 Mcg 8 Gm Inhaler) 2 puff INHALE Q4H PRN PRN Reason: Shortness of Breath Baclofen (Baclofen 10 Mg Tablet) 10 mg PO TID PRN PRN Reason: muscle spams Last Admin: 02/25/22 13:10 Dose: 10 mg Benztropine Mesylate (Benztropine Mesylate 1 Mg Tablet) 1 mg PO Q6H PRN PRN Reason: Extrapyramidal Effects Last Admin: 02/25/22 12:38 Dose: 1 mg Clonidine HCl (Clonidine Hcl 0.1 Mg Tablet) 0.1 mg PO TID PRN; Protocol PRN Reason: opioid withdrawal/anxiety Last Admin: 02/25/22 17:30 Dose: 0.1 mg Diphenhydramine HCl (Diphenhydramine Hcl 25 Mg Tablet) 50 mg PO Q6H PRN PRN Reason: Allergic Reaction Last Admin: 02/25/22 10:08 Dose: 50 mg Famotidine (Famotidine 20 Mg Tablet) 20 mg PO BID [facility] Last Admin: 02/25/22 08:11 Dose: 20 mg Fluoxetine HCl (Fluoxetine Hcl 10 Mg Capsule) 10 mg PO DAILY [facility] Last Admin: 02/25/22 08:12 Dose: 10 mg Hydroxyzine HCl (Hydroxyzine Hcl 50 Mg Tablet) 50 mg PO Q6H PRN PRN Reason: Anxiety Last Admin: 02/24/22 02:45 Dose: 50 mg Ibuprofen (Ibuprofen 600 Mg Tablet) 600 mg PO Q8H PRN PRN Reason: Pain, Mild (Pain Scale 1-3) Last Admin: 02/25/22 17:29 Dose: 600 mg Loperamide HCl (Loperamide Hcl 2 Mg Capsule) 4 mg PO Q4H PRN PRN Reason: loose stools Magnesium Hydroxide (Milk Of Magnesia 30 Ml Oral.Susp) 30 ml PO DAILY PRN PRN Reason: Constipation Last Admin: 02/25/22 09:28 Dose: 30 ml Methadone HCl (Methadone Hcl 20 Mg/2 Ml Oral.Conc) 30 mg PO DAILY [facility] Last Admin: 02/25/22 09:40 Dose: 30 mg Nicotine Polacrilex (Nicotine Polacrilex Lozenge 4 Mg Lozenge) 4 mg BUCCAL Q2H PRN PRN Reason: Nicotine Cravings Last Admin: 02/25/22 17:30 Dose: 4 mg Ondansetron HCl (Ondansetron Odt 4 Mg Tab.Rapdis) 4 mg TRANSLINGU Q6H PRN PRN Reason: Nausea Last Admin: 02/23/22 20:37 Dose: 4 mg Prednisone (Prednisone 20 Mg Tablet) 40 mg PO DAILY [facility] Trazodone HCl (Trazodone Hcl 50 Mg Tablet) 50 mg PO BEDTIME [facility] Last Admin: 02/24/22 20:44 Dose: 50 mg Trazodone HCl (Trazodone Hcl 50 Mg Tablet) 50 mg PO BEDTIME PRN PRN Reason: continued insomnia Allergies Allergies Allergy/AdvReac Type Severity Reaction Status Date / Time Penicillins [PENICILLINS] Allergy Unknown THROAT Verified 02/21/22 02:04 CLOSES haloperidol AdvReac Severe pharingeal Verified 02/22/22 12:48 dystonia Assessment & Plan Assessment & Plan (1) Drug-induced psychotic disorder: Status: Acute Code(s): F19.959 - Other psychoactive substance use, unspecified with psychoactive substance-induced psychotic disorder, unspecified (2) Opioid use disorder: Status: Acute Code(s): F11.90 - Opioid use, unspecified, uncomplicated Assessment and Plan: methadone increased to 40mg QD referral to community OTP not placed as it is reported patient will be discharged to [facility] facility once psychiatrically stable Plan 02/23 pt appears much less psychotic, less confused than when she first was brought in by police. Pt several episodes of emesis, monitoring for dehydration, pt with limited to no insight into substance use. 02/24 no AVH, delusional thinking; no confusion.no si/hi; Pt reports better and that recent episode must have been due to cocaine. Wants Prozac for ptsd -no more Nausea/vomiting 02/25 patient irritable about not being discharged; she is having trouble understanding how frightening her presentation was just prior to coming to the hospital. That said patient has seem to stabilize, in good behavioral and impulse control and denying any AVH, and is without paranoid delusions. Patient does need outpatient services which require social work to help set up and without remains at high risk for both relapse and decompensation. At this time copywriter finds it is in patient's best interest to remain the weekend and discuss with primary team when they return on Saturday. Also in the notation there is discussion that the court is being petitioned for a [place] making it more important for copywriter to defer dispo decision to her primary team Plan: Prozac 10mg lowered Prednisone to 40mg daily (otherwise patient would refuse it completely; PA who ordered it did not give specifications for taper and it seems it was ordered due to a dystonic reaction which has resolved) Discontinued Seroquel since patient took 25 mg and complained of tongue swelling I spent minutes with the patient and/or on the patient floor today, greater than?50% of which was spent counseling/coordinating care. Patient educated on: diagnosis, medication risk/benefits and medical condition Informed Consent: understands, does not understand and further education needed Reason for contiued inpatient stay Substantial Risk for: rapid decompensation
[2022-02-25] MEDS: traZODone HCL 50 MG TABLET PO ×2 (19:40→20:27)
[2022-02-25 20:27] VITALS: BP 131/71; PULSE 74; RESP 18; TEMP 36.6; O2SAT 99
[2022-02-26 04:57] LABS: HBS Num1 34.36 mIU/mL (0-7.99); HBc Num1 0.14 S/CO (0.00-0.79); HIV AB/AG Nonreactive (Nonreactive); Hepatitis B Core Antibody Nonreactive (Nonreactive); Hepatitis B Surface Antigen Negative (Negative); ~HepC Num1 14.75 S/CO (0.00-0.79); ~Hepatitis B Surface Antibody REACTIVE (Nonreactive); ~Hepatitis C Antibody Reactive (Nonreactive)
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
[2022-02-26 09:36] VITALS: BP 159/78; PULSE 101; RESP 16; TEMP 36.6; O2SAT 98
[2022-02-26] MEDS: FLUoxetine HCl 10 MG CAPSULE PO (10:17)
[2022-02-26] MEDS: methADONE HCl 20 MG/2 ML ORAL.CONC 30 MG PO (10:18)
[2022-02-26] MEDS: Famotidine 20 MG TABLET PO ×2 (10:18→20:35)
--- NOTE | 2022-02-26 10:38 | PC.NURSE ---
All nursing documentation inthis chart from 02/26/2022 0800am through 10:30 am was completed by Camryn Echevarria RN. I was loggied in in error as Ludmila Mora RN.
[2022-02-26] MEDS: Ibuprofen 600 MG TABLET PO ×2 (11:36→20:35)
[2022-02-26] MEDS: Nicotine Polacrilex Lozenge 4 MG LOZENGE BUCCAL ×3 (11:37→21:04)
[2022-02-26] MEDS: cloNIDine HCL 0.1 MG TABLET PO ×2 (12:35→15:57)
[2022-02-26] MEDS: hydrOXYzine HCL 50 MG TABLET PO ×2 (15:10→21:04)
--- NOTE | 2022-02-26 15:10 | HO.PSYCHPN ---
Subjective Subjective Date of Service: 02/26/22 Reason For Visit: SI Interim History: Patient anxious and asking for help with medication; grateful for clonidine and trial of low-dose gabapentin. Otherwise no psychotic symptoms. Still wants very much to go. denies any SI, HI AVH. Mental Status Exam Mental Status Exam Narrative: Appearance: casually groomed, adequate hygiene Behavior:cooperative psychomotor: no agitation or retardation noted Speech:clear, normal rate/rhythm/volume, spontaneous Thought process:linear Thought content: wants discharge Mood: better Affect: bright, calm SI:none HI:none VH/AH:none Delusions:none Insight/judgment:fair Memory/cog: alert, oriented x 3. Diagnostics Vital Signs (24Hr): Vital Signs - 24 hr 02/25/22 17:25 02/25/22 18:46 02/25/22 20:27 Temperature 98.1 F 97.9 F Pulse Rate 70 76 74 Respiratory Rate 16 18 Blood Pressure 130/81 130/67 131/71 Pulse Oximetry 97 99 Oxygen Delivery Method Room Air Room Air 02/26/22 09:36 Temperature 97.8 F Pulse Rate 101 H Respiratory Rate 16 Blood Pressure 159/78 H Pulse Oximetry 98 Oxygen Delivery Method Room Air BMI result Body Mass Index 27.9 Labs Results: 02/21/22 09:50 02/24/22 10:48 Labs: Laboratory Results - last 48 hr 02/23/22 18:26 Hep Bs Antigen Negative Hep Bs Antibody REACTIVE Hep B Core Total Ab Nonreactive Hepatitis C Ab (EIA) Reactive H HIV 1&2 Ab/P24 Ag 4thGn Nonreactive Imaging Radiology Impressions: ITS Impressions Chest X-Ray 02/22/22 18:25 IMPRESSION: Unremarkable examination. Medications Medications Current Medications Al Hydroxide/Mg Hydroxide (Magnesium Hydrox/Alum Hydrox 30 Ml Oral.Susp) 30 ml PO Q6H PRN PRN Reason: Heartburn/Nausea Albuterol Sulfate (Albuterol Sulfate 90 Mcg 8 Gm Inhaler) 2 puff INHALE Q4H PRN PRN Reason: Shortness of Breath Baclofen (Baclofen 10 Mg Tablet) 10 mg PO TID PRN PRN Reason: muscle spams Last Admin: 02/25/22 20:27 Dose: 10 mg Benztropine Mesylate (Benztropine Mesylate 1 Mg Tablet) 1 mg PO Q6H PRN PRN Reason: Extrapyramidal Effects Last Admin: 02/25/22 20:27 Dose: 1 mg Clonidine HCl (Clonidine Hcl 0.1 Mg Tablet) 0.1 mg PO TID PRN; Protocol PRN Reason: opioid withdrawal/anxiety Last Admin: 02/26/22 12:35 Dose: 0.1 mg Diphenhydramine HCl (Diphenhydramine Hcl 25 Mg Tablet) 50 mg PO Q6H PRN PRN Reason: Allergic Reaction Last Admin: 02/25/22 20:28 Dose: 50 mg Famotidine (Famotidine 20 Mg Tablet) 20 mg PO BID [facility] Last Admin: 02/26/22 10:18 Dose: 20 mg Fluoxetine HCl (Fluoxetine Hcl 10 Mg Capsule) 10 mg PO DAILY [facility] Last Admin: 02/26/22 10:17 Dose: 10 mg Hydroxyzine HCl (Hydroxyzine Hcl 50 Mg Tablet) 50 mg PO Q6H PRN PRN Reason: Anxiety Last Admin: 02/24/22 02:45 Dose: 50 mg Ibuprofen (Ibuprofen 600 Mg Tablet) 600 mg PO Q8H PRN PRN Reason: Pain, Mild (Pain Scale 1-3) Last Admin: 02/26/22 11:36 Dose: 600 mg Loperamide HCl (Loperamide Hcl 2 Mg Capsule) 4 mg PO Q4H PRN PRN Reason: loose stools Magnesium Hydroxide (Milk Of Magnesia 30 Ml Oral.Susp) 30 ml PO DAILY PRN PRN Reason: Constipation Last Admin: 02/25/22 09:28 Dose: 30 ml Methadone HCl (Methadone Hcl 20 Mg/2 Ml Oral.Conc) 30 mg PO DAILY [facility] Last Admin: 02/26/22 10:18 Dose: 30 mg Nicotine (Nicotine 21 Mg Patch.Td24) 21 mg TRANSDERMA DAILY PRN PRN Reason: smoking cessation Nicotine Polacrilex (Nicotine Polacrilex Lozenge 4 Mg Lozenge) 4 mg BUCCAL Q1H PRN PRN Reason: Nicotine Cravings Ondansetron HCl (Ondansetron Odt 4 Mg Tab.Rapdis) 4 mg TRANSLINGU Q6H PRN PRN Reason: Nausea Last Admin: 02/23/22 20:37 Dose: 4 mg Trazodone HCl (Trazodone Hcl 50 Mg Tablet) 50 mg PO BEDTIME [facility] Last Admin: 02/25/22 19:40 Dose: 50 mg Trazodone HCl (Trazodone Hcl 50 Mg Tablet) 50 mg PO BEDTIME PRN PRN Reason: continued insomnia Last Admin: 02/25/22 20:27 Dose: 50 mg Allergies Allergies Allergy/AdvReac Type Severity Reaction Status Date / Time Penicillins [PENICILLINS] Allergy Unknown THROAT Verified 02/21/22 02:04 CLOSES haloperidol AdvReac Severe pharingeal Verified 02/22/22 12:48 dystonia Assessment & Plan Assessment & Plan (1) Drug-induced psychotic disorder: Status: Acute Code(s): F19.959 - Other psychoactive substance use, unspecified with psychoactive substance-induced psychotic disorder, unspecified (2) Opioid use disorder: Status: Acute Code(s): F11.90 - Opioid use, unspecified, uncomplicated Assessment and Plan: methadone increased to 40mg QD referral to community OTP not placed as it is reported patient will be discharged to Section 35 facility once psychiatrically stable Plan 02/23 pt appears much less psychotic, less confused than when she first was brought in by police. Pt several episodes of emesis, monitoring for dehydration, pt with limited to no insight into substance use. 02/24 no AVH, delusional thinking; no confusion.no si/hi; Pt reports better and that recent episode must have been due to cocaine. Wants Prozac for ptsd -no more Nausea/vomiting 02/25 patient irritable about not being discharged; she is having trouble understanding how frightening her presentation was just prior to coming to the hospital. That said patient has seem to stabilize, in good behavioral and impulse control and denying any AVH, and is without paranoid delusions. Patient does need outpatient services which require social work to help set up and without remains at high risk for both relapse and decompensation. At this time global technical writer finds it is in patient's best interest to remain the weekend and discuss with primary team when they return on Saturday. Also in the notation there is discussion that the court is being petitioned for a Section 35 making it more important for global technical writer to defer dispo decision to her primary team 02/26 unchanged; added clonidine and gabapentin for anxiety Of note: -Haldol: Dystonic reaction -Seroquel 25 mg: Very likely dystonic reaction Plan: Prozac 10mg Start clonidine 0.1 mg p.r.n. Start gabapentin 100 mg p.r.n. anxiety Discontinue Prednisone (per Dr. Alexander) Discontinued Seroquel since patient took 25 mg and complained of tongue swelling I spent minutes with the patient and/or on the patient floor today, greater than?50% of which was spent counseling/coordinating care. Patient educated on: diagnosis, medication risk/benefits and medical condition Informed Consent: understands, does not understand and further education needed Reason for contiued inpatient stay Substantial Risk for: rapid decompensation
[2022-02-26] MEDS: Milk of Magnesia 30 ML ORAL.SUSP PO (15:13)
[2022-02-26] MEDS: Acetaminophen 325 MG TABLET 975 MG PO (16:21)
[2022-02-26] MEDS: Aspirin Enteric Coated 81 MG TABLET.DR PO (16:22)
[2022-02-26 20:30] VITALS: BP 123/70; PULSE 70; RESP 16; TEMP 36.6; O2SAT 99
[2022-02-26] MEDS: traZODone HCL 50 MG TABLET PO ×2 (20:35→21:03)
[2022-02-27] MEDS: FLUoxetine HCl 10 MG CAPSULE PO (08:59)
[2022-02-27] MEDS: Famotidine 20 MG TABLET PO (08:59)
[2022-02-27] MEDS: methADONE HCl 20 MG/2 ML ORAL.CONC 30 MG PO (08:59)
[2022-02-27 09:00] VITALS: BP 120/80; PULSE 86; RESP 16; TEMP 36.6; O2SAT 97
[2022-02-27] MEDS: Ibuprofen 600 MG TABLET PO (10:38)
[2022-02-27] MEDS: Nicotine Polacrilex Lozenge 4 MG LOZENGE BUCCAL (10:41)
--- NOTE | 2022-02-27 11:40 | PC.NURSE ---
Abby is discharged to the custody of D on section 35 at this time. She is alert, fully oriented, pleasant and cooperative with care. She is compliant with prescribed medications. She denies ideation, plan or intent to harm self or others.
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
[2022-02-27] MEDS: Naloxone HCl Nasal TAKE HOME 4 MG SPRAY NOSTRILALT (11:49)
[2022-02-28 04:37] LABS: Hepatitis A Antibody IgM 0.25 Index (0-0.79); ~Hepatitis A Antibody IgM Nonreactive (Nonreactive)
== END 2022-02-27 11:54 | disposition home health service (06) | DRG 773 ==
LOC: HO.ED 12:02 → HO.PADLT16 12:12
PROVIDERS: Nurse Practitioner Psychiatric/Mental Health; Admitting Provider Social Worker; Emergency Provider Internal Medicine; Visit Provider Social Worker
DX: F11.251 Opioid dependence with opioid-induced psychotic disorder with hallucinations (principal); R45.851 Suicidal ideations; J45.909 Unspecified asthma, uncomplicated; F19.10 Other psychoactive substance abuse, uncomplicated; F17.210 Nicotine dependence, cigarettes, uncomplicated; F11.23 Opioid dependence with withdrawal; Z71.51 Drug abuse counseling and surveillance of drug abuser; Z20.822 Contact with and (suspected) exposure to COVID-19; Z71.6 Tobacco abuse counseling; Z88.0 Allergy status to penicillin; Z88.8 Allergy status to other drugs, medicaments and biological substances; Z79.899 Other long term (current) drug therapy
CPT/HCPCS: 36415; 71045; 80053; 80061; 80307; 81001; 81025; 82607; 82746; 84443; 85027; 86704; 86706; 86709; 86803; 87340; 87389; 87635; 93005; 99285; J0515; J1200; J1885; J2405; J3360; Q0163

== ENCOUNTER 2022-10-13 19:11 | Emergency (ER) | payer OTHER, SELFPAY ==
[2022-10-13 19:14] VITALS: BP 113/68; PULSE 110; RESP 18; TEMP 36.9; O2SAT 95; BMI 33.3
--- NOTE | 2022-10-13 19:14 | ED.GENADULT ---
HPI - General Adult General Chief complaint: ETOH/Substance Use Stated complaint: looking for detox,drug use Time Seen by Provider: 10/13/22 20:09 Related Data Previous Rx's Medication Instructions Recorded clonidine HCl 0.1 mg tablet 0.1 mg PO TID PRN opioid 02/27/22 withdrawal/anxiety #30 tabs fluoxetine 10 mg capsule 10 mg PO DAILY #30 caps 02/27/22 methadone 10 mg/mL oral 30 mg (3 mL) PO DAILY #0 mL 02/27/22 concentrate (Methadose) trazodone 100 mg tablet 100 mg PO BEDTIME PRN continued 02/27/22 insomnia #30 tabs Allergies Allergy/AdvReac Type Severity Reaction Status Date / Time Penicillins [PENICILLINS] Allergy Unknown THROAT Verified 02/21/22 02:04 CLOSES haloperidol AdvReac Severe pharingeal Verified 02/22/22 12:48 dystonia PMFSH Past Medical History Medical History Asthma Major depression Social History Social History Household Members: Unknown / Unable to assess Household Members Other:: Had roommate, moved out, lived in tent for @1 wk, went to detox. Housing: Homeless Do you presently have visiting nurse or other home services: No Alcohol intake: never Patient Tobacco Use Status: Current everyday Tobacco user Tobacco use type: Cigarette Cigarette Packs Per Day: 0.5 Cigarettes Per Day: 10.0 Smoked in Last 30 Days: Yes e-Cigarette/Vaping Use: Former Use Second Hand Smoke Exposure: Yes Use of substances other than those prescribed or required for medical reasons: Yes Substance Use Type: Heroin Substance Use Frequency: Chronic Longstanding Substance Use Frequency Other:: Sts clean for 1 year, relapse x 1 today Last Used Substance: Just Prior to Admission Any prior treatment program specific to substance use: Yes Advance Directives: Yes Advance Directives on File: Yes Advance Directives Date on File: 03/05/22 Patient : No service: No Sexual orientation: Don't Know Physical Exam ED Vital Signs: BMI result Body Mass Index 33.3 Course Course Course Narrative: RME performed by Anni Bang PA-C. Patient is a 26 year old assigned female at presenting to the emergency department with a recent relapse of heroin. Labs ordered. Patient placed back in the waiting room pending room availability and results. Patient seen, evaluated, and discharged by Dr. Land. Please refer to his separate completed and signed note. Medical Decision Making Lab Data Labs: Lab Results 10/13/22 10/13/22 10/13/22 Range/Units 19:39 19:39 19:39 Urine Color Yellow Urine Appearance Cloudy Urine pH 5.5 (5.0-9.0) Ur Specific [place] 1.025 (1.005-1.025) Urine Protein Trace (Neg-Trace) mg/dL Urine Glucose (UA) Negative (Negative) mg/dL Urine Ketones Trace (Negative) mg/dL Urine Blood Negative (Negative) Urine Nitrite Negative (Negative) Ur Leukocyte Esterase Negative (Negative) Urine Test (NEGATIVE) Urine Opiates Screen POSITIVE H (Not Detect) Urine Fentanyl Screen POSITIVE H (Not Detect) Ur Barbiturates Screen Not Detected (Not Detect) Ur Phencyclidine Scrn Not Detected (Not Detect) Ur Amphetamines Screen Not Detected (Not Detect) U Benzodiazepines Scrn Not Detected (Not Detect) Urine Cocaine Screen POSITIVE H (Not Detect) U Marijuana (THC) Screen Not Detected (Not Detect) COVID-19 (LUX) Negative (Negative) COVID-19 Clin Com See Note 10/13/22 Range/Units 19:39 Urine Color Urine Appearance Urine pH (5.0-9.0) Ur Specific [place] (1.005-1.025) Urine Protein (Neg-Trace) mg/dL Urine Glucose (UA) (Negative) mg/dL Urine Ketones (Negative) mg/dL Urine Blood (Negative) Urine Nitrite (Negative) Ur Leukocyte Esterase (Negative) Urine Test NEGATIVE (NEGATIVE) Urine Opiates Screen (Not Detect) Urine Fentanyl Screen (Not Detect) Ur Barbiturates Screen (Not Detect) Ur Phencyclidine Scrn (Not Detect) Ur Amphetamines Screen (Not Detect) U Benzodiazepines Scrn (Not Detect) Urine Cocaine Screen (Not Detect) U Marijuana (THC) Screen (Not Detect) COVID-19 (LUX) (Negative) COVID-19 Clin Com Discharge Plan Discharge Clinical Impression: Substance abuse Clinical Impression: (Ruled Out): Drug-induced psychotic disorder Patient Disposition: Home, Self-Care Instructions: Polysubstance Abuse (ED) Additional Instructions: Call the detox program last that we provided you. Prescriptions: No Action clonidine HCl 0.1 mg Tablet 0.1 mg PO TID PRN (Reason: opioid withdrawal/anxiety) Qty: 30 0RF Protocol: Hold for SBP< HOLD for SBP < : 90 fluoxetine 10 mg Capsule 10 mg PO DAILY Qty: 30 0RF methadone [Methadose] 10 mg/mL Concentrate 30 mg PO DAILY Qty: 0 0RF Rx Instructions: Partial Fill upon patient request. trazodone 100 mg tablet 100 mg PO BEDTIME PRN (Reason: continued insomnia) Qty: 30 0RF Interventions: ED Discharge Assessment Last Done: 10/14/22 02:12 Discharge Date/Time: 10/14/22 02:13
--- NOTE | 2022-10-13 19:43 | MHC.EDTECH ---
PATIENT REFUSED BLOOD WORK ,HYDRAULIC PRESS IN OPERATORJON DIGGS IS AWARE .
[2022-10-13 19:51] LABS: Appearance Urine Cloudy; Color Urine Yellow; Glucose Urine UA Negative (Negative); Leukocyte Esterase Urine Negative (Negative); Nitrite Urine Negative (Negative); PH 5.5 (5.0-9.0); Specific Gravity - Urine 1.025 (1.005-1.025); Urine Blood Negative (Negative); Urine Ketones Trace mg/dL (Negative); Urine Protein Trace mg/dL (Neg-Trace)
[2022-10-13 19:58] LABS: Amphetamine Screen Urine Not Detected (Not Detect); Barbiturates, Urine Not Detected (Not Detect); Benzodiazepines Screen Urine Not Detected (Not Detect); Cannabinoid Screen Urine Not Detected (Not Detect); Cocaine Screen Urine POSITIVE (Not Detect); Fentanyl, urine POSITIVE (Not Detect); Opiate Screen Urine POSITIVE (Not Detect); Phencyclidine Screen Urine Not Detected (Not Detect)
--- NOTE | 2022-10-13 19:59 | PC.NURSE ---
Assumed care of pt. Pt sitting on stretcher, father at bedside. pt calm and cooperative, however refusing blood work and refusing to answer questoins regarding nature of relapse today. Advised that CARE team will require blood work, but advised she could have conversation with them to determine need. Security contacted for foreign exchange position clerk. No acute distress at this time. Father will remain with pt with pt permission throughout process. SHWETA.
[2022-10-13 20:19] LABS: COVID-19 Test Negative (Negative); IDNOW Serial# 08D9AD1C
--- NOTE | 2022-10-13 21:28 | ED.GENADULT ---
HPI - General Adult General Chief complaint: ETOH/Substance Use Stated complaint: looking for detox,drug use Time Seen by Provider: 10/13/22 20:09 Source: patient and family (Father) Mode of arrival: ambulatory Limitations: no limitations History of Present Illness HPI narrative: 26-year-old female history of drug abuse on methadone, patient has been sober and clean from drugs for the past year patient relapsed today had to use heroin IV, patient overall feels depressed but no SI or HI or auditory hallucination, patient is seeking detox. Related Data Previous Rx's Medication Instructions Recorded clonidine HCl 0.1 mg tablet 0.1 mg PO TID PRN opioid 02/27/22 withdrawal/anxiety #30 tabs fluoxetine 10 mg capsule 10 mg PO DAILY #30 caps 02/27/22 methadone 10 mg/mL oral 30 mg (3 mL) PO DAILY #0 mL 02/27/22 concentrate (Methadose) trazodone 100 mg tablet 100 mg PO BEDTIME PRN continued 02/27/22 insomnia #30 tabs Allergies Allergy/AdvReac Type Severity Reaction Status Date / Time Penicillins [PENICILLINS] Allergy Unknown THROAT Verified 02/21/22 02:04 CLOSES haloperidol AdvReac Severe pharingeal Verified 02/22/22 12:48 dystonia Review of Systems Review of Systems: All other systems are reviewed and are negative Constitutional: Reports as per HPI and Reports no additional constitutional complaints Eyes: Reports as per HPI and Reports no additional eye complaints Reports system reviewed and no additional complaints, except as documented Cardiovascular: Reports as per HPI and Reports no additional cardiovascular complaints Respiratory: Reports as per HPI and Reports no additional respiratory complaints Gastrointestinal: Reports as per HPI and Reports no additional gastrointestinal complaints Genitourinary: Reports no additional female genitourinary complaints Musculoskeletal: Reports no additional musculoskeletal complaints Skin/Breast: Reports system reviewed and no additional complaints, except as docu Psychiatric: Reports no additional psychiatric complaints Endocrine: Reports no additional endocrine complaints Hematologic/Lymphatic: Reports no additional hematologic/lymphatic complaints Allergic/Immunologic: Reports no additional allergic/immunologic complaints Reports system reviewed and no additional complaints, except as documented and Reports Abnormal speech present [facility] Past Medical History Medical History Asthma Major depression Social History Social History Household Members: Unknown / Unable to assess Household Members Other:: Had roommate, moved out, lived in tent for @1 wk, went to detox. Housing: Homeless Do you presently have visiting nurse or other home services: No Alcohol intake: never Patient Tobacco Use Status: Current everyday Tobacco user Tobacco use type: Cigarette Cigarette Packs Per Day: 0.5 Cigarettes Per Day: 10.0 Smoked in Last 30 Days: Yes e-Cigarette/Vaping Use: Former Use Second Hand Smoke Exposure: Yes Use of substances other than those prescribed or required for medical reasons: Yes Substance Use Type: Heroin Substance Use Frequency: Chronic Longstanding Substance Use Frequency Other:: Sts clean for 1 year, relapse x 1 today Last Used Substance: Just Prior to Admission Any prior treatment program specific to substance use: Yes Advance Directives: Yes Advance Directives on File: Yes Advance Directives Date on File: 03/05/22 Patient : No service: No Sexual orientation: Don't Know Physical Exam ED Vital Signs: Vital Signs - 24 hr 10/13/22 19:14 10/14/22 00:59 Temperature 98.5 F 97.8 F Pulse Rate 110 H 73 Respiratory Rate 18 18 Blood Pressure 113/68 102/54 L Pulse Oximetry 95 97 Oxygen Delivery Method Room Air Room Air BMI result Body Mass Index 33.3 Vital signs have been reviewed as appeared to be correct. Blood pressure normal. Heart rate elevated. Respiration rate normal. Temperature normal. Oxygen saturation normal. Appearance: Alert. Oriented X3. No acute distress. Head: Normal external exam. Normocephalic. Atraumatic. No Null signs noted. No raccoon eyes noted Eyes: PERRLA. EOMI. Conjunctiva and sclera normal. Eyelids normal. ENT: TM's Normal. Pharynx normal. Uvula midline. Moist mucous membranes. No trismus noted. No drooling noted. No muffled voice noted. Neck: Normal inspection. Neck supple. FROM. No adenopathy. Thyroid Normal. No meningeal signs. No neck mass noted. CVS: Normal heart rate and rhythm. Heart sound normal. No murmurs noted. Pulses normal throughout. Respiratory: No respiratory distress. Painless inspiration. Breath sounds normal. No wheezes/rales/rhonchi noted. Chest nontender. No accessory muscle usage noted or decreased air movement noted. Abdomen: Soft and nontender. Bowel sounds normal in all 4 quadrants. No distention noted. No organomegaly noted. No visible injury noted. Back: No CVA tenderness. Full range of motion noted. Skin: Skin warm and dry. Normal skin color. Normal skin turgor. No rashes/lesions/lacerations noted. Extremities: No lower extremity edema. Extremities exhibit normal range of motion. Extremities nontender. Neuro: Oriented X 3. Cranial nerve exam: II-XII are grossly intact No motor deficit. No sensory deficit. Reflexes normal. Course Course Course Narrative: Seeking detox from opiate, patient is on methadone. No sign of withdrawal, keep under physician observation until evaluated by care team. Reevaluation(s) Reevaluation #1: No SI, no HI, no auditory hallucination, patient was provided a list of detox programs to call. Care team input is appreciated. Time: 01:37 Medical Decision Making Differential Diagnosis Differential Diagnoses: The differential diagnosis associated with the presentation includes (Electrolyte abnormalities, severe anemia, polysubstance abuse, .) Lab Data MDM Lab Attestation statement: I reviewed the patient's lab results. Labs: Lab Results 10/13/22 10/13/22 10/13/22 Range/Units 19:39 19:39 19:39 Urine Color Yellow Urine Appearance Cloudy Urine pH 5.5 (5.0-9.0) Ur Specific [place] 1.025 (1.005-1.025) Urine Protein Trace (Neg-Trace) mg/dL Urine Glucose (UA) Negative (Negative) mg/dL Urine Ketones Trace (Negative) mg/dL Urine Blood Negative (Negative) Urine Nitrite Negative (Negative) Ur Leukocyte Esterase Negative (Negative) Urine Test (NEGATIVE) Urine Opiates Screen POSITIVE H (Not Detect) Urine Fentanyl Screen POSITIVE H (Not Detect) Ur Barbiturates Screen Not Detected (Not Detect) Ur Phencyclidine Scrn Not Detected (Not Detect) Ur Amphetamines Screen Not Detected (Not Detect) U Benzodiazepines Scrn Not Detected (Not Detect) Urine Cocaine Screen POSITIVE H (Not Detect) U Marijuana (THC) Screen Not Detected (Not Detect) COVID-19 (LUX) Negative (Negative) COVID-19 Clin Com See Note 10/13/22 Range/Units 19:39 Urine Color Urine Appearance Urine pH (5.0-9.0) Ur Specific [place] (1.005-1.025) Urine Protein (Neg-Trace) mg/dL Urine Glucose (UA) (Negative) mg/dL Urine Ketones (Negative) mg/dL Urine Blood (Negative) Urine Nitrite (Negative) Ur Leukocyte Esterase (Negative) Urine Test NEGATIVE (NEGATIVE) Urine Opiates Screen (Not Detect) Urine Fentanyl Screen (Not Detect) Ur Barbiturates Screen (Not Detect) Ur Phencyclidine Scrn (Not Detect) Ur Amphetamines Screen (Not Detect) U Benzodiazepines Scrn (Not Detect) Urine Cocaine Screen (Not Detect) U Marijuana (THC) Screen (Not Detect) COVID-19 (LUX) (Negative) COVID-19 Clin Com Discharge Plan Discharge Clinical Impression: Substance abuse Clinical Impression: (Ruled Out): Drug-induced psychotic disorder Patient Disposition: Home, Self-Care Instructions: Polysubstance Abuse (ED) Additional Instructions: Call the detox program last that we provided you. Prescriptions: No Action clonidine HCl 0.1 mg Tablet 0.1 mg PO TID PRN (Reason: opioid withdrawal/anxiety) Qty: 30 0RF Protocol: Hold for SBP< HOLD for SBP < : 90 fluoxetine 10 mg Capsule 10 mg PO DAILY Qty: 30 0RF methadone [Methadose] 10 mg/mL Concentrate 30 mg PO DAILY Qty: 0 0RF Rx Instructions: Partial Fill upon patient request. trazodone 100 mg tablet 100 mg PO BEDTIME PRN (Reason: continued insomnia) Qty: 30 0RF
[2022-10-13 22:42] LABS: UPreg QC Valid YES
[2022-10-13 22:44] LABS: Urine Pregnancy NEGATIVE (NEGATIVE)
--- NOTE | 2022-10-13 23:04 | PC.NURSE ---
Pt lying on stretcher, eyes closed, easily rousable, no acute distress at this time. WCTM.
[2022-10-14 00:59] VITALS: BP 102/54; PULSE 73; RESP 18; TEMP 36.6; O2SAT 97
--- NOTE | 2022-10-14 01:28 | PC.NURSE ---
Ho from Care team at bedside.
== END 2022-10-14 02:13 | disposition home or self-care (01) ==
PROVIDERS: Physician Assistant Medical; Emergency Provider Emergency Medicine
DX: F19.10 Other psychoactive substance abuse, uncomplicated (principal); F32.A Depression, unspecified; Z20.822 Contact with and (suspected) exposure to COVID-19; F17.210 Nicotine dependence, cigarettes, uncomplicated; F11.20 Opioid dependence, uncomplicated; Z79.899 Other long term (current) drug therapy
CPT/HCPCS: 80307; 81003; 81025; 87635; 99284

== ENCOUNTER 2023-01-28 18:49 | Emergency (ER) | payer OTHER, SELFPAY ==
[2023-01-28 19:57] VITALS: BP 97/70; PULSE 87; RESP 18; TEMP 36.8; O2SAT 96; BMI 29.2
--- NOTE | 2023-01-28 19:58 | ED.PSYCH ---
HPI - Psych General Chief Complaint: Psychiatric Symptoms Stated Complaint: off meds, would like to be put in a psych barbosa Time Seen by Provider: 01/28/23 23:01 Source: patient Mode of arrival: ambulatory Limitations: no limitations History of Present Illness HPI Narrative: patient with history of IVDA user depression anxiety has not taken her medication for last 3 months unable to get the prescription feels anxious and depressed denies any SI. Has poor appetite Related Data Home Medications Medication Instructions Recorded Confirmed ascorbic acid (vitamin C) 250 mg 250 mg PO DAILY 01/28/23 01/28/23 tablet benztropine 0.5 mg tablet 0.5 mg PO BEDTIME 01/28/23 01/28/23 cholecalciferol (vitamin D3) 1,250 1 PO QMONTH 01/28/23 mcg (50,000 unit) capsule ferrous sulfate 325 mg (65 mg 325 mg PO DAILY 01/28/23 01/28/23 iron) tablet fluoxetine 40 mg capsule 40 mg PO DAILY 01/28/23 01/28/23 gabapentin 300 mg capsule 300 mg PO BID 01/28/23 01/28/23 hydroxyzine HCl 25 mg tablet 25 mg PO TID PRN anxiety 01/28/23 01/28/23 mirtazapine 15 mg tablet 7.5 - 15 mg PO BEDTIME insomnia 01/28/23 01/28/23 quetiapine 150 mg tablet,extended 150 mg PO DAILY 01/28/23 01/28/23 release 24 hr zolpidem 6.25 mg tablet,extended 6.25 mg PO BEDTIME 01/28/23 01/28/23 release,multiphase Previous Rx's Medication Instructions Recorded fluoxetine 10 mg capsule 10 mg PO DAILY #30 caps 02/27/22 Allergies Allergy/AdvReac Type Severity Reaction Status Date / Time Penicillins [PENICILLINS] Allergy Unknown THROAT Verified 01/28/23 22:58 CLOSES haloperidol AdvReac Severe pharingeal Verified 01/28/23 22:58 dystonia Review of Systems Review of Systems: Yes all other systems are reviewed and are negative PMF Past Medical History Medical History Asthma Major depression Social History Social History Household Members: Unknown / Unable to assess Household Members Other:: Had roommate, moved out, lived in tent for @1 wk, went to detox. Housing: Homeless Do you presently have visiting nurse or other home services: No Alcohol intake: never Patient Tobacco Use Status: Current everyday Tobacco user Tobacco use type: Cigarette Cigarette Packs Per Day: 0.5 Cigarettes Per Day: 10.0 Smoked in Last 30 Days: Yes e-Cigarette/Vaping Use: Former Use Second Hand Smoke Exposure: Yes Use of substances other than those prescribed or required for medical reasons: Yes Substance Use Type: Crack/Cocaine, Heroin and IV Drugs Advance Directives: Yes Advance Directives on File: Yes Advance Directives Date on File: 03/05/22 Patient : No service: No Sexual orientation: Don't Know Physical Exam Vital Signs: Vital Signs: Last Vital Signs Temp 98.3 F 01/28/23 19:57 Pulse 20 L 01/29/23 02:46 Resp 20 01/28/23 22:46 BP 97/70 01/28/23 19:57 Pulse Ox 96 01/28/23 19:57 O2 Del Method Room Air 01/28/23 19:57 BMI result Body Mass Index 29.2 Appearance: Alert. Oriented X3. No acute distress. Eyes: PERRLA, No Nystagmus ENT: Pharynx normal. Oral Mucosa moist Neck: Normal inspection. Neck supple. CVS: Normal heart rate and rhythm. Pulses normal. Respiratory: No respiratory distress. Equal air entry bilateral, no wheezing/rales/rhonchi Abdomen: Soft and nontender. Bowel sounds are present, no mass palpable, no CVA tenderness Skin: Skin warm and dry. Normal skin color. Normal skin turgor. Extremities: No lower extremity edema. No calf tenderness IVDA track garcia+ psych: feel depressed denies any SI no hallucination or delusion Neuro: Oriented X 3. No motor deficit. No sensory deficit.No cerebellar signs , cranial nerves II-XII intact Course Course Course Narrative: RME - 27 yo female presenting for evaluation of severe depression and not feeling well mentally. Has been off of meds for 3 weeks says her dad, she thought it only has been a couple of days. She admits to relapsing after 1 year of being clean. Unknown what meds she is on. Has been using heroin and cocaine. Has not been eating. Has been hospitalized psychiatrically before, last was here in February 2022 and she felt it helped her. Plan: labs, medical clearance and crisis evaluation Medications Administered Discontinued Medications Generic Name Dose Route Start Last Admin Trade Name Emma PRN Reason Stop Dose Admin Lorazepam 2 mg 01/28/23 23:59 01/29/23 00:51 Lorazepam 1 Mg Tablet PO 01/29/23 00:00 2 mg ONCE ONE Administration Medical Decision Making Medical Decision Making [facility] Narrative: patient with substance abuse with depression will get care team involved for evaluation Lab Data [facility] Lab Attestation statement: I reviewed the patient's lab results. Labs: Lab Results 01/28/23 Range/Units 20:45 Urine Color Dark Yellow Urine Appearance Clear Urine pH 5.5 (5.0-9.0) Ur Specific [place] 1.020 (1.005-1.025) Urine Protein 30 (1+) H (Neg-Trace) mg/dL Urine Glucose (UA) Negative (Negative) mg/dL Urine Ketones Trace (Negative) mg/dL Urine Blood Negative (Negative) Urine Nitrite Negative (Negative) Ur Leukocyte Esterase Trace H (Negative) Urine RBC 6-10 H (0-2) /HPF Urine WBC 0-5 (0-5) /HPF Ur Squamous Epith Cells 11-20 (0-2) /HPF Urine Bacteria None Seen (None Seen) Hyaline Casts >20 (0-2) /LPF Urine Test NEGATIVE (NEGATIVE) Urine Opiates Screen POSITIVE H (Not Detect) Urine Fentanyl Screen POSITIVE H (Not Detect) Ur Barbiturates Screen Not Detected (Not Detect) Ur Phencyclidine Scrn Not Detected (Not Detect) Ur Amphetamines Screen Not Detected (Not Detect) U Benzodiazepines Scrn POSITIVE H (Not Detect) Urine Cocaine Screen POSITIVE H (Not Detect) U Marijuana (THC) Screen Not Detected (Not Detect) Discharge Plan Discharge Clinical Impression: Depression, Polysubstance abuse Patient Disposition: Still a Patient Prescriptions: No Action fluoxetine 10 mg Capsule 10 mg PO DAILY Qty: 30 0RF fluoxetine 40 mg capsule 40 mg PO DAILY benztropine 0.5 mg tablet 0.5 mg PO BEDTIME ascorbic acid (vitamin C) 250 mg tablet 250 mg PO DAILY ferrous sulfate 325 mg (65 mg iron) tablet 325 mg PO DAILY gabapentin 300 mg capsule 300 mg PO BID hydroxyzine HCl 25 mg tablet 25 mg PO TID PRN (Reason: anxiety) mirtazapine 15 mg tablet 7.5 - 15 mg PO BEDTIME zolpidem 6.25 mg tablet,ext release multiphase 6.25 mg PO BEDTIME cholecalciferol (vitamin D3) 1,250 mcg (50,000 unit) capsule 1 PO QMONTH quetiapine 150 mg tablet extended release 24 hr 150 mg PO DAILY Interventions: [place]-Suicide Risk Severity Scale Last Done: 01/29/23 04:00
--- NOTE | 2023-01-28 20:42 | MHC.EDTECH ---
PATIENT REFUSED BLOOD DRAWN ,BECAUSE SHE SAID SHE IS A DIFFICULT STICK ,PROVIDER CITLALY AWARE .
[2023-01-28 20:54] LABS: Appearance Urine Clear; Color Urine Dark Yellow; Glucose Urine UA Negative (Negative); Leukocyte Esterase Urine Trace (Negative); Nitrite Urine Negative (Negative); PH 5.5 (5.0-9.0); UMIC TRIGGER UACC YES; Urine Blood Negative (Negative); Urine Ketones Trace mg/dL (Negative); Urine Protein 30 (1+) mg/dL (Neg-Trace)
[2023-01-28 20:55] LABS: UPreg QC Valid YES; Urine Pregnancy NEGATIVE (NEGATIVE)
[2023-01-28 21:07] LABS: Amphetamine Screen Urine Not Detected (Not Detect); Barbiturates, Urine Not Detected (Not Detect); Benzodiazepines Screen Urine POSITIVE (Not Detect); Cannabinoid Screen Urine Not Detected (Not Detect); Cocaine Screen Urine POSITIVE (Not Detect); Fentanyl, urine POSITIVE (Not Detect); Opiate Screen Urine POSITIVE (Not Detect); Phencyclidine Screen Urine Not Detected (Not Detect)
[2023-01-28 21:13] LABS: Bacteria Urine None Seen (None Seen); Hyaline Casts Urine >20 /LPF (0-2); WBC Urine 0-5 /HPF (0-5)
[2023-01-28 22:46] VITALS: RESP 20
--- NOTE | 2023-01-28 23:10 | PC.NURSE ---
Pt ambulated independently from W/R, sitting on stretcher, A&Ox4, calm and cooperative, denies any pain, reports depression, states I relapsed, everything is falling apart for me, I live in my car, not taking medications. Pt denies SI/HI, wants to speak to care team. Pt refused blood draw, states I'm dehydrated and I am a hard stick . PO fluids and sandwich given per request.
[2023-01-29] MEDS: LORazepam 1 MG TABLET 2 MG PO (00:51)
[2023-01-29 02:46] VITALS: PULSE 20
--- NOTE | 2023-01-29 06:18 | PC.NURSE ---
Pt appears to be sleeping at this time, no apparent distress.
--- NOTE | 2023-01-29 07:28 | ECG_ITS ---
Test Reason : MEDICAL CLEARANCE Blood Pressure : / mmHG Vent. Rate : 068 BPM Atrial Rate : 068 BPM P-R Int : 158 ms QRS Dur : 098 ms QT Int : 426 ms P-R-T Axes : 035 -04 005 degrees QTc Int : 452 ms Normal sinus rhythm Minimal voltage criteria for LVH, may be normal variant ( R in aVL ) Nonspecific T wave abnormality Abnormal ECG When compared with ECG of 22-FEB-2022 23:07, Nonspecific T wave abnormality is now Present Referred By: Sophy Lopez Electronically Signed By:HIWOT DEMPSEY
[2023-01-29 08:06] LABS: MANUAL DIFF FLAG NO
[2023-01-29 08:11] LABS: Basophils Percent Auto 1.1 % (0-2); Eosinophils Absolute Auto 0.3 X10*3/uL (0.0-0.4); Eosinophils Percent Auto 7.7 % (0-4); Hematocrit 33.6 % (37.0-47.0); Hemoglobin 11.3 g/dl (12.0-16.0); Imm Gran Abs Auto 0.05 X10*3/uL (0.00-0.03); Imm Gran Pct Auto 1.4 % (0.0-0.4); Lymphocytes Absolute Auto 1.4 X10*3/uL (1.2-4.9); Lymphocytes Percent Auto 39.3 % (20-40); Mean Corpuscular HGB Conc 33.6 g/dl (31.0-35.0); Mean Corpuscular Hemoglobin 27.2 pg (27.0-33.0); Mean Platelet Volume 10.6 fL (9.4-12.3); Monocytes Absolute Auto 0.4 X10*3/uL (0.1-1.2); Neutrophils Absolute Auto 1.4 x10*3/uL (2.0-8.3); Neutrophils Percent Auto 38.5 % (45-73); Platelet Count 217 X10*3/uL (160-400); Red Blood Count 4.15 X10*6/uL (4.20-5.50); Red Cell Distribution Width 13.6 % (11.0-16.0); White Blood Count 3.5 X10*3/uL (4.8-10.8)
[2023-01-29 08:29] LABS: Acetaminophen LAB < 17 mcg/mL (<30); Anion Gap 16 (12-20); Blood Urea Nitrogen 9 mg/dL (9-16); Calcium 9.3 mg/dL (8.4-10.2); Carbon Dioxide 25 mmol/L (22-29); Chloride 104 mmol/L (96-108); Creatinine Clr Calc Pharmacy 114.2; Estimated Glomerular Filt Rate > 60; Ethanol < 10 mg/dL; Glucose Random 105 mg/dL (60-115); Potassium 3.5 mmol/L (3.3-5.1); Salicylate < 5.0 mg/dL (15-30); Sodium 141 mmol/L (135-145)
--- NOTE | 2023-01-29 09:13 | MHC.RECOVRN ---
Addendum entered by Jenelle Acosta RN 01/30/23 08:43: Pt referral sent to [facility], awaiting their response at this time. Pod RN aware. Addendum entered by Jenelle Acosta RN 01/29/23 18:26: Pt aware bedsearch has been exhausted. Provided with a folder of resources in the community and instructed to follow up. Pt provided with a list of detoxes and pod RN to provide last dose letter. Addendum entered by Jenelle Acosta RN 01/29/23 15:21: Referral packet sent to [facility]. Addendum entered by Jenelle Acosta RN 01/29/23 14:15: Pt expressing desire to go to detox, [facility] today, [place]. Original Note: T/w met with pt to assess recovery goals. Pt laying on stretcher with eyes closed, appears mildly diaphoretic. Pt reports she feels nauseated, with abd pain, and restlessness. Pt has recently relapsed, stating she is using a bundle a day. Using cocaine and heroin. Pt reports previously going to [facility] and was on 55mg MTD daily. Expressing that she would like to change her home clinic to [facility]. Discussed with provider Sophy dosing pt with MTD 20mg. Pt's RN aware of MTD order, plan to re-eval after med has taken effect.
[2023-01-29] MEDS: methADONE HCl 20 MG/2 ML ORAL.CONC PO (09:41)
--- NOTE | 2023-01-29 09:41 | MHC.CARE ---
CARE Team attempted to meet with Pt to determine appropriate treatment recommendations. Pt reported withdrawal symptoms and not fully interviewable . CARE Team informed can patcher. CARE Team will follow up with Pt once medicated for symptoms.
--- NOTE | 2023-01-29 11:18 | PC.NURSE ---
assumed care of pt at 0700. pt sleeping on stretcher in no apparent distress. pt pleasant, calm, and cooperative. pt asking for methadone. ordered by provider. medicated per jul. pt brought over to pod. report given to JERICA Sanches.
[2023-01-30 01:57] VITALS: BP 110/59; PULSE 72; RESP 17; TEMP 36.7; O2SAT 95
--- NOTE | 2023-01-30 06:01 | PC.NURSE ---
Patient slept through the night, no distress observed/reported, behavior non concerning, VSS, disposition is recovery team detox bed search, med rec completed/pending provider's approval, labs completed/resulted, patient is on 15 minutes fifteen minutes safety check for safety, will continue to monitor.
[2023-01-30] MEDS: methADONE HCl 20 MG/2 ML ORAL.CONC PO (08:51)
[2023-01-30] MEDS: Naloxone HCl Nasal TAKE HOME 4 MG SPRAY 8 MG NOSTRILALT (09:21)
--- NOTE | 2023-01-30 09:31 | PC.NURSE ---
Abby was OOB this morning and recovery team was contacted to check on availability of a detox bed. There was a female bed available and Abby was given 20mg Methadone and told there was a possibility she would be placed today. Abby reports she made a call and wants to get high . She reports when she feels like this she can't change her mind and she declined any bed that may be available to her. Abby was given 2 doses of Narcan to take with her and given instructions not to use alone and not to use same dose she was using before coming to the hospital. Abby was able to verbalize these instructions back and understood the directions on how to administer narcan and explain to a friend/partner how to administer is she needed the medication. Abby sent by jarad to [facility].
== END 2023-01-30 09:38 | disposition home or self-care (01) ==
PROVIDERS: Physician Assistant; Emergency Provider Emergency Medicine Emergency Medical Services
DX: F33.1 Major depressive disorder, recurrent, moderate (principal); F41.1 Generalized anxiety disorder; F43.0 Acute stress reaction; R94.31 Abnormal electrocardiogram [ECG] [EKG]; Z79.899 Other long term (current) drug therapy; F17.210 Nicotine dependence, cigarettes, uncomplicated; Z71.6 Tobacco abuse counseling
CPT/HCPCS: 36415; 80048; 80143; 80179; 80307; 81001; 81025; 85025; 93005; 99285; S9485

== ENCOUNTER 2023-02-05 16:36 | Inpatient (IN) | payer OTHER, SELFPAY ==
[2023-02-05 17:17] VITALS: BP 154/77; PULSE 102; RESP 18; TEMP 36.6; O2SAT 97; BMI 38.3
--- NOTE | 2023-02-05 17:18 | ED_ITS ---
HPI - Psych General Chief Complaint: Psychiatric Symptoms Stated Complaint: Depression, seeking help Time Seen by Provider: 02/05/23 18:10 Source: patient Mode of arrival: ambulatory Limitations: no limitations History of Present Illness HPI Narrative: Patient comes to the emergency room stating that she feels very depressed and she is not taking any of her medications. Patient admits to using heroin. At this time, patient is still significantly somnolent, a bit confused. It was noted patient has an abscess in her left antecubital fossa and the left breast, patient states that it hurts. Patient known to be IV drug user. Related Data Home Medications Medication Instructions Recorded Confirmed ascorbic acid (vitamin C) 250 mg 250 mg PO DAILY 02/05/23 02/05/23 tablet benztropine 0.5 mg tablet 0.5 mg PO BEDTIME 02/05/23 02/05/23 fluoxetine 40 mg capsule 40 mg PO DAILY 02/05/23 02/05/23 gabapentin 300 mg capsule 300 mg PO BID 02/05/23 02/05/23 hydroxyzine HCl 25 mg tablet 25 mg PO TID PRN anxiety 02/05/23 02/05/23 mirtazapine 15 mg tablet 7.5 - 15 mg PO BEDTIME insomnia 02/05/23 02/05/23 quetiapine 150 mg tablet,extended 150 mg PO DAILY 02/05/23 02/05/23 release 24 hr quetiapine 400 mg tablet,extended 400 mg PO DAILY 02/05/23 02/05/23 release 24 hr zolpidem 6.25 mg tablet,extended 6.25 mg PO BEDTIME 02/05/23 02/05/23 release,multiphase Allergies Allergy/AdvReac Type Severity Reaction Status Date / Time Penicillins [PENICILLINS] Allergy Unknown THROAT Verified 01/28/23 22:58 CLOSES haloperidol AdvReac Severe pharingeal Verified 01/28/23 22:58 dystonia Review of Systems Review of Systems: Constitutional : No Weight loss, No Fever, No Chills, No Night Sweats, No Fatigue, No Malaise ENT/Mouth : No Hearing loss, No Ear Pain, No Nasal Congestion, No Sinus Pain, No Hoarseness, No sore throat, No Rhinorrhea, No Swallowing Difficulty Eyes: No Eye Pain, No Swelling, No Redness, No Foreign Body, No Discharge, No Vision Changes Cardiovascular : No Chest Pain, No SOB, No Dyspnea on Exertion, No Orthopnea, No Edema, No Palpitations Respiratory : No Cough, No Sputum, No Wheezing, No Smoke Exposure, No Dyspnea Gastrointestinal : No Nausea, No Vomiting, No Diarrhea, No Constipation, No abdominal Pain, No Hematochezia, No Melena Genitourinary : no irregular bleeding, No Dysuria, No Urinary Frequency, No Hematuria, No Urinary Incontinence, No Urgency, No Flank Pain, No Urinary Flow Changes, No Hesitancy Musculoskeletal : No joint pain, No Myalgias, No Joint Swelling Skin : Complaining of skin abscesses that hurt Neuro : No Weakness, No Numbness, No Paresthesias, No Loss of Consciousness, No Dizziness, No Headache Psych : Complaining of depression, being off meds, reports SI with undisclosed plan, no HI Heme/Lymph: No Bruising, No Bleeding,No Lymphadenopathy Endocrine : No Polyuria, No Polydipsia, No Temperature Intolerance PMFSH Past Medical History Medical History (Updated 02/05/23 @ 20:09 by Ida Lacey MD) Opioid use disorder Drug-induced psychotic disorder Asthma Major depression Social History Social History Household Members: Unknown / Unable to assess Household Members Other:: Had roommate, moved out, lived in tent for @1 wk, went to detox. Housing: Homeless Do you presently have visiting nurse or other home services: No Alcohol intake: never Patient Tobacco Use Status: Current everyday Tobacco user Tobacco use type: Cigarette Cigarette Packs Per Day: 0.5 Cigarettes Per Day: 10.0 e-Cigarette/Vaping Use: Former Use Second Hand Smoke Exposure: Yes Use of substances other than those prescribed or required for medical reasons: Yes Substance Use Type: Crack/Cocaine and Heroin Substance Use Frequency: Chronic Longstanding Last Used Substance: Just Prior to Admission Advance Directives: Yes Advance Directives Information Provided: No Advance Directives on File: No Advance Directives Date on File: 03/05/22 service: No Sexual orientation: Don't Know Physical Exam Vital Signs: Vital Signs: Last Vital Signs Temp 97.8 F 02/05/23 17:17 Pulse 102 H 02/05/23 17:17 Resp 16 02/06/23 01:03 BP 154/77 H 02/05/23 17:17 Pulse Ox 97 02/05/23 17:17 O2 Del Method Room Air 02/05/23 17:17 BMI result Body Mass Index 38.3 Const: Other: Appearance: Alert. Oriented X3. No acute distress. Eyes: Pupils equal, round and reactive to light. ENT: Pharynx normal. Neck: Normal inspection. Neck supple. No lymph nodes noted. No crepitus CVS: Normal heart rate and rhythm. Pulses normal. Normal S1 and S2 Respiratory: No respiratory distress. Breath sounds normal. No Wheezing. No rales Abdomen: Soft and nontender. No rigidity. No distention. Skin: Patient has IV track garcia from drug abuse in all extremities. Patient has a large abscess with ulceration in the left antecubital fossa and a large abscess on the left breast. Extremities: No lower extremity edema. No Lacerations. No Rash Neuro: Oriented X 3. No motor deficit. No sensory deficit. Moving all extremities. No slurred speech. CN 2 through 12 grossly intact Psych: calm, cooperative, normal affect Course Course Course Narrative: This is an RME: Additional HPI, ROS, PE not included below will be deferred to primary provider. This is a [id number]-female, with a hx of IVDA, depression, anxiety, presenting to the ER with complaints of increased depression and anxiety. She is having thoughts of harming herself. She states that she has a plan. No etoh abuse. Uses heroin - used 7 bags [employer]. typically uses 1-2 bundles a day. Large abscess noted to left upper arm x 3 weeks Plan: Labs, may need I&D to abscess on left arm Reevaluation(s) Reevaluation #1: Physician observation continued. VS stable, no acute events noted overnight. refusing labs and I+D of abscess in LUE - agrees to oral antibiotics. Pending CARE team consult Medications Administered Generic Name Dose Route Start Last Admin Trade Name Freq PRN Reason Stop Dose Admin Benztropine Mesylate 0.5 mg 02/05/23 21:15 02/05/23 21:49 Benztropine Mesylate 0.5 Mg Tablet PO Not Given BEDTIME JOHN Gabapentin 300 mg 02/05/23 21:15 02/05/23 21:50 Gabapentin 300 Mg Capsule PO Not Given BID JOHN Mirtazapine 7.5 mg 02/05/23 21:15 02/05/23 21:50 Mirtazapine 15 Mg Tablet PO Not Given BEDTIME [id number] JOHN Discontinued Medications Generic Name Dose Route Start Last Admin Trade Name Emma PRN Reason Stop Dose Admin Trimethoprim/Sulfamethoxazole 1 tab 02/05/23 19:50 02/05/23 20:24 Sulfamethox/Trimeth 800/160 Tablet PO 02/05/23 19:51 1 tab ONCE ONE Administration Medical Decision Making Medical Decision Making MDM Narrative: -patient refusing blood work -patient refused incision and drainage of abscesses in her arm or aspiration of abscess in the left breast -patient agreeable to take p.o. antibiotics -care team consult pending, however patient has not consented for blood work yet -sign-out given to Dr. Gupta Differential Diagnosis Differential Diagnoses: The differential diagnosis associated with the presentation includes (Polysubstance abuse) Admission/Observation Consideration of admission/observation: Escalation of care including admission/observation considered (Patient will remain under observation until s een by the care team) Lab Data Labs: Lab Results 02/05/23 Range/Units 18:04 Urine Test NEGATIVE (NEGATIVE) Urine Opiates Screen POSITIVE H (Not Detect) Urine Fentanyl Screen POSITIVE H (Not Detect) Ur Barbiturates Screen Not Detected (Not Detect) Ur Phencyclidine Scrn Not Detected (Not Detect) Ur Amphetamines Screen POSITIVE H (Not Detect) U Benzodiazepines Scrn POSITIVE H (Not Detect) Urine Cocaine Screen POSITIVE H (Not Detect) U Marijuana (THC) Screen Not Detected (Not Detect) Critical Care Time Critical Care Time Critical Care Time: Yes Total Critical Care Time: 60 Attestation: I have personally provided critical care time. Time includes review of lab data, radiology results, discussion with consultants, and monitoring for potential decompensation. Intervention performed as documented. Discharge Plan Discharge Clinical Impression: Opioid use disorder, Major depression, Abscess of multiple sites Patient Disposition: Still a Patient Prescriptions: No Action fluoxetine 40 mg capsule 40 mg PO DAILY benztropine 0.5 mg tablet 0.5 mg PO BEDTIME ascorbic acid (vitamin C) 250 mg tablet 250 mg PO DAILY gabapentin 300 mg capsule 300 mg PO BID hydroxyzine HCl 25 mg tablet 25 mg PO TID PRN (Reason: anxiety) mirtazapine 15 mg tablet 7.5 - 15 mg PO BEDTIME zolpidem 6.25 mg tablet,ext release multiphase 6.25 mg PO BEDTIME quetiapine 400 mg tablet extended release 24 hr 400 mg PO DAILY quetiapine 150 mg tablet extended release 24 hr 150 mg PO DAILY Interventions: [place]-Suicide Risk Severity Scale Last Done: 02/06/23 06:34
--- NOTE | 2023-02-05 18:14 | PC.NURSE ---
pt changed over w rn. reports vague SI- does not elaborate but jaswinder has a plan w/o giving details. depressed, sad. cooperative. ambulatory. no respiratory distress. airway intact
--- NOTE | 2023-02-05 18:15 | PC.NURSE ---
joellen nunes notified urine sent, declined blood. pt alert, talking, walking well. drank po fluids. resting, watching tv. changed on arrival w belongings secured w tech/rn/security.
--- NOTE | 2023-02-05 18:15 | MHC.EDTECH ---
PT REFUSED BLOOD DRAW. RN AWARE
[2023-02-05 18:31] LABS: UPreg QC Valid YES; Urine Pregnancy NEGATIVE (NEGATIVE)
[2023-02-05 18:33] LABS: Amphetamine Screen Urine POSITIVE (Not Detect); Barbiturates, Urine Not Detected (Not Detect); Benzodiazepines Screen Urine POSITIVE (Not Detect); Cannabinoid Screen Urine Not Detected (Not Detect); Cocaine Screen Urine POSITIVE (Not Detect); Fentanyl, urine POSITIVE (Not Detect); Opiate Screen Urine POSITIVE (Not Detect); Phencyclidine Screen Urine Not Detected (Not Detect)
[2023-02-05] MEDS: Sulfamethox/Trimeth 800/160 TABLET 1 TAB PO (20:24)
--- NOTE | 2023-02-05 21:08 | PHA.MEDREC ---
Pharmacy Consult ? Medication Reconciliation Pharmacy has reviewed the medication reconciliation completed by Lorenzo.
--- NOTE | 2023-02-06 | ECG_ITS ---
Test Reason : + cocaine Blood Pressure : / mmHG Vent. Rate : 096 BPM Atrial Rate : 096 BPM P-R Int : 140 ms QRS Dur : 084 ms QT Int : 360 ms P-R-T Axes : 050 -11 -13 degrees QTc Int : 454 ms Normal sinus rhythm Minimal voltage criteria for LVH, may be normal variant ( R in aVL ) Nonspecific T wave abnormality Abnormal ECG When compared with ECG of 29-JAN-2023 07:40, Nonspecific T wave abnormality, worse in Lateral leads Referred By: Lin Lane Electronically Signed By:HIWOT DEMPSEY
[2023-02-06 01:03] VITALS: RESP 16
--- NOTE | 2023-02-06 06:56 | PC.NURSE ---
Patient slept through the night, no distress observed/reported, behavior non concerning, care consult ordered/pending evaluation, behavior non concerning, VSS, blood draw pending, med rec completed/approved, Bactrim administered as ordered for abscess on left anticubital, will continue to monitor.
[2023-02-06 08:06] VITALS: BP 103/71; PULSE 86; RESP 16; TEMP 36.2; O2SAT 98
[2023-02-06 09:00] LABS: Basophils Percent Auto 0.8 % (0-2); Eosinophils Absolute Auto 0.2 X10*3/uL (0.0-0.4); Eosinophils Percent Auto 5.3 % (0-4); Hematocrit 34.1 % (37.0-47.0); Hemoglobin 11.4 g/dl (12.0-16.0); Imm Gran Abs Auto 0.02 X10*3/uL (0.00-0.03); Imm Gran Pct Auto 0.5 % (0.0-0.4); Lymphocytes Absolute Auto 1.1 X10*3/uL (1.2-4.9); Lymphocytes Percent Auto 28.2 % (20-40); MANUAL DIFF FLAG SCAN; Mean Corpuscular HGB Conc 33.4 g/dl (31.0-35.0); Mean Corpuscular Hemoglobin 26.7 pg (27.0-33.0); Mean Corpuscular Volume 79.9 fL (80.0-98.0); Monocytes Absolute Auto 0.4 X10*3/uL (0.1-1.2); Monocytes Percent Auto 9.4 % (2-11); Neutrophils Absolute Auto 2.2 x10*3/uL (2.0-8.3); Neutrophils Percent Auto 55.8 % (45-73); PLT CLUMP 1; Red Blood Count 4.27 X10*6/uL (4.20-5.50); Red Cell Distribution Width 13.6 % (11.0-16.0); SCAN SMEAR FLAG 1
--- NOTE | 2023-02-06 09:19 | MHC.RECOVRN ---
Met with pt, pt states she is using 1-2 bundles daily, last use yesterday afternoon. Pt reports she is feeling unwell: nausea, chills, and abd pain. Pt appears uncomfortable at this time. Provider aware and to order 20mg of methadone and zofran for nausea. Dispo pending care team.
[2023-02-06 09:21] LABS: Alanine Aminotransferase 38 U/L (0-31); Albumin Level 3.5 g/dL (3.5-5.0); Alkaline Phosphatase 181 U/L (39-117); Anion Gap 14 (12-20); Aspartate Amino Transferase 42 U/L (5-31); Bilirubin Direct 0.2 mg/dL (0.0-0.5); Bilirubin Total 0.5 mg/dL (0.0-1.0); Blood Urea Nitrogen 7 mg/dL (9-16); Calcium 9.4 mg/dL (8.4-10.2); Carbon Dioxide 20 mmol/L (22-29); Chloride 108 mmol/L (96-108); Creatinine Clr Calc Pharmacy 139.2; Estimated Glomerular Filt Rate > 60; Ethanol < 10 mg/dL; Glucose Random 91 mg/dL (60-115); Potassium 4.4 mmol/L (3.3-5.1); Sodium 138 mmol/L (135-145); Total Protein 7.6 g/dL (6.5-8.0)
[2023-02-06] MEDS: methADONE HCl 20 MG/2 ML ORAL.CONC PO (09:31)
[2023-02-06] MEDS: Gabapentin 300 MG CAPSULE PO ×2 (09:31→21:35)
[2023-02-06] MEDS: QUEtiapine Fumarate 25 MG TABLET 75 MG PO ×2 (09:31→21:36)
[2023-02-06] MEDS: FLUoxetine HCl 20 MG CAPSULE 40 MG PO (09:32)
[2023-02-06] MEDS: Ondansetron ODT 4 MG TAB.RAPDIS TRANSLINGU (09:32)
[2023-02-06] MEDS: Doxycycline Monohydrate 100 MG CAPSULE PO ×2 (09:32→21:35)
[2023-02-06] MEDS: QUEtiapine Fumarate 200 MG TABLET PO (09:33)
[2023-02-06 09:43] LABS: White Blood Count 3.9 X10*3/uL (4.8-10.8)
[2023-02-06 09:45] LABS: SLIDE REVIEW VERIFIED
[2023-02-06 15:23] LABS: COVID-19 Test Negative (Negative); IDNOW Serial# BCCEAD1C
[2023-02-06 18:00] VITALS: BP 113/68; PULSE 82; RESP 16; TEMP 36.6; O2SAT 97
[2023-02-06 21:35] VITALS: BP 116/56; PULSE 84; TEMP 36.3; O2SAT 95
[2023-02-06] MEDS: Mirtazapine 15 MG TABLET 7.5 MG PO ×2 (21:35→21:39)
[2023-02-06] MEDS: Benztropine Mesylate 0.5 MG TABLET PO (21:36)
--- NOTE | 2023-02-07 00:30 | PC.ADMIT ---
Pt is a 27 year old single Macedonian speaking female admitted as a CV admission to 02/06/23 at 1500 and placed on 15 minute safety checks. Patient was medically cleared in the [facility] ED, evaluated by the CARE team and deemed in need of IPLOC secondary to voicing SI with a plan as well as testing positive for opioids, amphetamines. benzodiazepines and cocaine. Pat reported that she is currently homes and off her psychiatric medications for several months. She has not been at [facility] in the past but did mention that she has received substance abuse treatment in the past. During the admission process patient kept stating I'm just really tired, I haven't slept in days. Patient noted to be quite disheveled with uncombed hair. Speech was slightly slurred, poor concentration and minimal eye contact. Patient said she had been very depressed but did not rate her depression. She said she was not currently feeling suicidal. She was able to sign releases. She did mention that she was having discomfort on both feet and t/w looked at her feet and noted that there were blisters as well as a lot of dirt on her feet. Patient able to sign all legals and able to answer all the admission questions. She was able to eat dinner, take HS meds and go to sleep. No signs or symptoms of withdrawal.
[2023-02-07 08:20] VITALS: BP 101/58; PULSE 75; RESP 18; TEMP 36.2; O2SAT 93
[2023-02-07] MEDS: FLUoxetine HCl 20 MG CAPSULE 40 MG PO (08:29)
[2023-02-07] MEDS: Gabapentin 300 MG CAPSULE PO ×2 (08:29→19:40)
[2023-02-07] MEDS: QUEtiapine Fumarate 25 MG TABLET 75 MG PO (08:29)
[2023-02-07] MEDS: Doxycycline Monohydrate 100 MG CAPSULE PO ×2 (08:29→19:40)
[2023-02-07 08:32] LABS: Alanine Aminotransferase 30 U/L (0-31); Albumin Level 3.1 g/dL (3.5-5.0); Alkaline Phosphatase 137 U/L (39-117); Anion Gap 11 (12-20); Aspartate Amino Transferase 25 U/L (5-31); Bilirubin Total 0.2 mg/dL (0.0-1.0); Blood Urea Nitrogen 8 mg/dL (9-16); Calcium 9.1 mg/dL (8.4-10.2); Carbon Dioxide 27 mmol/L (22-29); Chloride 107 mmol/L (96-108); Cholesterol 110 mg/dL (<200); Creatinine Clr Calc Pharmacy 147.8; Estimated Glomerular Filt Rate > 60; Glucose Fasting 97 mg/dL (60-99); HDL Cholesterol 28 mg/dL (>40); LDL Cholesterol Calculated 64 mg/dL (<100); Potassium 4.3 mmol/L (3.3-5.1); Sodium 141 mmol/L (135-145); Total Protein 6.7 g/dL (6.5-8.0); Triglycerides 92 mg/dL (<150)
[2023-02-07] MEDS: methADONE HCl 20 MG/2 ML ORAL.CONC PO (09:04)
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
[2023-02-07 18:00] VITALS: BP 111/70; PULSE 76; RESP 17; TEMP 36.6; O2SAT 96
[2023-02-07] MEDS: traZODone HCL 50 MG TABLET PO (19:40)
[2023-02-08 08:05] VITALS: BP 121/65; PULSE 79; RESP 18; TEMP 36.4; O2SAT 100
[2023-02-08] MEDS: Gabapentin 300 MG CAPSULE PO ×2 (08:36→20:27)
[2023-02-08] MEDS: FLUoxetine HCl 20 MG CAPSULE PO (08:36)
[2023-02-08] MEDS: Doxycycline Monohydrate 100 MG CAPSULE PO ×2 (08:36→20:28)
[2023-02-08] MEDS: methADONE HCl 20 MG/2 ML ORAL.CONC PO (08:36)
[2023-02-08] MEDS: hydrOXYzine HCL 25 MG TABLET PO (15:06)
--- NOTE | 2023-02-08 15:31 | P.PNPSI_ITS ---
Subjective Subjective Date of Service: 02/08/23 Reason For Visit: SI Subjective Notes: Conditional Voluntary Interim History: Pt reports feeling less tired, but still wanting to rest. She report she is not sure about CSS. She reports she just want to be back on psych meds- currently on prozac. No SI/HI. Mostly in bed. No attending groups. Review of Systems Review of Systems Constitutional : No Weight loss, No Fever, No Chills, No Night Sweats, No Fatigue, No Malaise ENT/Mouth : No Hearing loss, No Ear Pain, No Nasal Congestion, No Sinus Pain, No Hoarseness, No sore throat, No Rhinorrhea, No Swallowing Difficulty Eyes: No Eye Pain, No Swelling, No Redness, No Foreign Body, No Discharge, No Vision Changes Cardiovascular : No Chest Pain, No SOB, No Dyspnea on Exertion, No Orthopnea, No Edema, No Palpitations Respiratory : No Cough, No Sputum, No Wheezing, No Smoke Exposure, No Dyspnea Gastrointestinal : No Nausea, No Vomiting, No Diarrhea, No Constipation, No abdominal Pain, No Hematochezia, No Melena Genitourinary : no irregular bleeding, No Dysuria, No Urinary Frequency, No Hematuria, No Urinary Incontinence, No Urgency, No Flank Pain, No Urinary Flow Changes, No Hesitancy Musculoskeletal : No joint pain, No Myalgias, No Joint Swelling Skin : Complaining of skin abscesses that hurt Neuro : No Weakness, No Numbness, No Paresthesias, No Loss of Consciousness, No Dizziness, No Headache Psych : Complaining of depression, being off meds, reports SI with undisclosed plan, no HI Heme/Lymph: No Bruising, No Bleeding,No Lymphadenopathy Endocrine : No Polyuria, No Polydipsia, No Temperature Intolerance Mental Status Exam Mental Status Exam Narrative: Appearance: wearing hospital gown, poor hygiene, in NAD Behavior: superficially cooperative Psychomotor: no agitation or retardation noted Speech: clear, normal rate/rhythm/volume, spontaneous TP: linear TC: no s/s of psychosis or delusions, feeling tired, not ready to engage in substance use tx, Mood: tired' Affect: somnolent SI: denies HI: denies VH/AH: none Delusions: none Insight/judgment: poor x 2 Memory/cog: alert, oriented x 3. Diagnostics Vital Signs (24Hr): Vital Signs - 24 hr 02/07/23 18:00 02/08/23 08:05 Temperature 97.8 F 97.5 F Pulse Rate 76 79 Respiratory Rate 17 18 Blood Pressure 111/70 121/65 Pulse Oximetry 96 100 Oxygen Delivery Method Room Air Room Air BMI result Body Mass Index 38.3 Labs 02/06/23 08:48 02/07/23 08:08 Labs: Laboratory Results - last 48 hr 02/07/23 08:08 Sodium 141 Potassium 4.3 Chloride 107 Carbon Dioxide 27 Anion Gap 11 L BUN 8 L Creatinine 0.65 Estim Creat Clear Calc 147.8 Estimated GFR > 60 Fasting Glucose 97 Calcium 9.1 Total Bilirubin 0.2 AST 25 ALT 30 Alkaline Phosphatase 137 H Total Protein 6.7 Albumin 3.1 L Triglycerides 92 Cholesterol 110 LDL Cholesterol, Calc 64 HDL Cholesterol 28 L Medications Medications Current Medications Al Hydroxide/Mg Hydroxide (Magnesium Hydrox/Alum Hydrox 30 Ml Oral.Susp) 30 ml PO Q6H PRN PRN Reason: Heartburn/Nausea Doxycycline Monohydrate (Doxycycline Monohydrate 100 Mg Capsule) 100 mg PO BID [facility] Last Admin: 02/08/23 08:36 Dose: 100 mg Fluoxetine HCl (Fluoxetine Hcl 20 Mg Capsule) 20 mg PO DAILY [facility] Last Admin: 02/08/23 08:36 Dose: 20 mg Gabapentin (Gabapentin 300 Mg Capsule) 300 mg PO BID [facility] Last Admin: 02/08/23 08:36 Dose: 300 mg Hydroxyzine HCl (Hydroxyzine Hcl 25 Mg Tablet) 25 mg PO TID PRN PRN Reason: anxiety Last Admin: 02/08/23 15:06 Dose: 25 mg Magnesium Hydroxide (Milk Of Magnesia 30 Ml Oral.Susp) 30 ml PO DAILY PRN PRN Reason: Constipation Methadone HCl (Methadone Hcl 20 Mg/2 Ml Oral.Conc) 20 mg PO DAILY [facility] Last Admin: 02/08/23 08:36 Dose: 20 mg Nicotine Polacrilex (Nicotine Polacrilex 2 Mg Gum) 2 mg BUCCAL Q2H PRN PRN Reason: Nicotine Cravings Trazodone HCl (Trazodone Hcl 50 Mg Tablet) 50 mg PO BEDTIME PRN PRN Reason: Insomnia Last Admin: 02/07/23 19:40 Dose: 50 mg Allergies Allergies Allergy/AdvReac Type Severity Reaction Status Date / Time Penicillins [PENICILLINS] Allergy Unknown THROAT Verified 01/28/23 22:58 CLOSES haloperidol AdvReac Severe pharingeal Verified 01/28/23 22:58 dystonia Assessment & Plan Assessment & Plan (1) MDD (major depressive disorder), recurrent episode, moderate: Status: Acute Code(s): F33.1 - Major depressive disorder, recurrent, moderate (2) Opioid use disorder: Status: Acute Code(s): F11.90 - Opioid use, unspecified, uncomplicated Plan Ms. Pires is a 27 year-old woman with hx of MDD, opioids, cocaine use disorder who self presented to ED reporting increased depression and SI. Utox positive for cocaine, opioids. We discussed risks, benefits and alternative treatment options. Pt in agreement to restart prozac. She does report not taking any psychotropic meds in several months. Currently, she appears oversedated, decreased seroquel. PLAN 02/08 continue tx. Reason for continued inpatient stay Substantial Risk for: inability to function Time Spent With Patient Time: Total time managing care of this patient today ____ minutes.
[2023-02-08] MEDS: Ibuprofen 600 MG TABLET PO (16:17)
--- NOTE | 2023-02-08 17:07 | P.EN_ITS ---
Event Note Date of Service: 02/08/23 Event Note: Patient complained of numbness right hand over thumb and finger/phalanges, seemingly median nerve distribution. 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 Mild erythema around the scab but does not look infected. [employer] notified nursing will monitor and primary provider; patient agrees to inform if worsens or does not get better over next few days. Time Spent With Patient Time: Total time managing care of this patient today ____ minutes.
--- NOTE | 2023-02-08 17:13 | PC.NURSE ---
Pt reported R hand numbness to a RN, Dr. García made aware. Nursing instructed to monitor for worsening symptoms.
[2023-02-08] MEDS: traZODone HCL 50 MG TABLET PO (20:28)
[2023-02-08] MEDS: Nicotine Polacrilex 2 MG GUM BUCCAL (20:28)
[2023-02-08 20:45] VITALS: BP 111/63; PULSE 63; RESP 18; TEMP 36.6; O2SAT 97
[2023-02-09 08:10] VITALS: BP 104/65; PULSE 81; RESP 18; TEMP 36.5; O2SAT 97
[2023-02-09] MEDS: methADONE HCl 20 MG/2 ML ORAL.CONC PO (08:39)
[2023-02-09] MEDS: Doxycycline Monohydrate 100 MG CAPSULE PO ×2 (08:39→20:27)
[2023-02-09] MEDS: Gabapentin 300 MG CAPSULE PO ×2 (08:39→20:27)
[2023-02-09] MEDS: FLUoxetine HCl 20 MG CAPSULE PO (08:40)
[2023-02-09] MEDS: Ibuprofen 600 MG TABLET PO ×2 (09:13→20:25)
--- NOTE | 2023-02-09 11:18 | HO.PSYCHPN ---
Subjective Subjective Date of Service: 02/09/23 Reason For Visit: SI Interim History: Patient reports poor sleep last night because her roommate uses a CPAP and the roommate had to have a 1:1 which disrupted her sleep. She is hopeful for a room change. She denies SI. She reports she is tolerating her medications well. She denies AVH. Review of Systems Review of Systems Constitutional : No Weight loss, No Fever, No Chills, No Night Sweats, No Fatigue, No Malaise ENT/Mouth : No Hearing loss, No Ear Pain, No Nasal Congestion, No Sinus Pain, No Hoarseness, No sore throat, No Rhinorrhea, No Swallowing Difficulty Eyes: No Eye Pain, No Swelling, No Redness, No Foreign Body, No Discharge, No Vision Changes Cardiovascular : No Chest Pain, No SOB, No Dyspnea on Exertion, No Orthopnea, No Edema, No Palpitations Respiratory : No Cough, No Sputum, No Wheezing, No Smoke Exposure, No Dyspnea Gastrointestinal : No Nausea, No Vomiting, No Diarrhea, No Constipation, No abdominal Pain, No Hematochezia, No Melena Genitourinary : no irregular bleeding, No Dysuria, No Urinary Frequency, No Hematuria, No Urinary Incontinence, No Urgency, No Flank Pain, No Urinary Flow Changes, No Hesitancy Musculoskeletal : No joint pain, No Myalgias, No Joint Swelling Skin : Complaining of skin abscesses that hurt Neuro : No Weakness, No Numbness, No Paresthesias, No Loss of Consciousness, No Dizziness, No Headache Psych : Complaining of depression, being off meds, reports SI with undisclosed plan, no HI Heme/Lymph: No Bruising, No Bleeding,No Lymphadenopathy Endocrine : No Polyuria, No Polydipsia, No Temperature Intolerance Mental Status Exam Mental Status Exam Narrative: Appearance: wearing hospital gown, poor hygiene, in NAD Behavior: superficially cooperative Psychomotor: no agitation or retardation noted Speech: clear, normal rate/rhythm/volume, spontaneous TP: linear TC: no s/s of psychosis or delusions, feeling tired, not ready to engage in substance use tx, Mood: tired' Affect: somnolent SI: denies HI: denies VH/AH: none Delusions: none Insight/judgment: poor x 2 Memory/cog: alert, oriented x 3. Diagnostics Vital Signs (24Hr): Vital Signs - 24 hr 09/22/23 20:45 02/09/23 08:10 Temperature 97.8 F 97.7 F Pulse Rate 63 81 Respiratory Rate 18 18 Blood Pressure 111/63 104/65 Pulse Oximetry 97 97 Oxygen Delivery Method Room Air Room Air BMI result Body Mass Index 38.3 Labs 02/06/23 08:48 02/07/23 08:08 Medications Medications Current Medications Al Hydroxide/Mg Hydroxide (Magnesium Hydrox/Alum Hydrox 30 Ml Oral.Susp) 30 ml PO Q6H PRN PRN Reason: Heartburn/Nausea Doxycycline Monohydrate (Doxycycline Monohydrate 100 Mg Capsule) 100 mg PO BID [facility]PL[facility] BY [facility] Last Admin: 02/09/23 08:39 Dose: 100 mg Fluoxetine HCl (Fluoxetine Hcl 20 Mg Capsule) 20 mg PO DAILY [facility] Last Admin: 02/09/23 08:40 Dose: 20 mg Gabapentin (Gabapentin 300 Mg Capsule) 300 mg PO BID [facility] Last Admin: 02/09/23 08:39 Dose: 300 mg Hydroxyzine HCl (Hydroxyzine Hcl 25 Mg Tablet) 25 mg PO TID PRN PRN Reason: anxiety Last Admin: 02/08/23 15:06 Dose: 25 mg Ibuprofen (Ibuprofen 600 Mg Tablet) 600 mg PO Q8H PRN PRN Reason: Pain, Mild (Pain Scale 1-3) Last Admin: 02/09/23 09:13 Dose: 600 mg Magnesium Hydroxide (Milk Of Magnesia 30 Ml Oral.Susp) 30 ml PO DAILY PRN PRN Reason: Constipation Methadone HCl (Methadone Hcl 20 Mg/2 Ml Oral.Conc) 20 mg PO DAILY [facility] Last Admin: 02/09/23 08:39 Dose: 20 mg Nicotine Polacrilex (Nicotine Polacrilex 2 Mg Gum) 2 mg BUCCAL Q2H PRN PRN Reason: Nicotine Cravings Last Admin: 02/08/23 20:28 Dose: 2 mg Trazodone HCl (Trazodone Hcl 50 Mg Tablet) 50 mg PO BEDTIME PRN PRN Reason: Insomnia Last Admin: 02/08/23 20:28 Dose: 50 mg Allergies Allergies Allergy/AdvReac Type Severity Reaction Status Date / Time Penicillins [PENICILLINS] Allergy Unknown THROAT Verified 01/28/23 22:58 CLOSES haloperidol AdvReac Severe pharingeal Verified 01/28/23 22:58 dystonia Assessment & Plan Assessment & Plan (1) MDD (major depressive disorder), recurrent episode, moderate: Status: Acute Code(s): F33.1 - Major depressive disorder, recurrent, moderate (2) Opioid use disorder: Status: Acute Code(s): F11.90 - Opioid use, unspecified, uncomplicated Plan Ms. Pires is a 27 year-old woman with hx of MDD, opioids, cocaine use disorder who self presented to ED reporting increased depression and SI. Utox positive for cocaine, opioids. We discussed risks, benefits and alternative treatment options. Pt in agreement to restart prozac. She does report not taking any psychotropic meds in several months. Currently, she appears oversedated, decreased seroquel. PLAN 1. Admit to M5, CV, 15 minutes checks for safety. 2. Continue prozac 20mg po daily. seroquel prn at this point as she appears oversedated. 3. Aftercare planning. 4. Give narcan at time of d/c Reason for continued inpatient stay Substantial Risk for: harm to self, inability to function and rapid decompensation Time Spent With Patient Time: Total time managing care of this patient today ____ minutes.
[2023-02-09 17:19] VITALS: BP 105/64; PULSE 64; TEMP 36.4; O2SAT 97
[2023-02-09] MEDS: Nicotine Polacrilex 2 MG GUM BUCCAL (17:28)
[2023-02-09] MEDS: traZODone HCL 50 MG TABLET PO (20:27)
[2023-02-10] MEDS: traZODone HCL 50 MG TABLET PO ×2 (03:25→19:34)
[2023-02-10 08:00] VITALS: BP 121/66; PULSE 78; RESP 18; TEMP 36.9; O2SAT 98
[2023-02-10] MEDS: methADONE HCl 20 MG/2 ML ORAL.CONC PO (08:12)
[2023-02-10] MEDS: Gabapentin 300 MG CAPSULE PO ×2 (08:12→19:34)
[2023-02-10] MEDS: FLUoxetine HCl 20 MG CAPSULE PO (08:12)
[2023-02-10] MEDS: Doxycycline Monohydrate 100 MG CAPSULE PO ×2 (08:12→19:35)
[2023-02-10] MEDS: Nicotine Polacrilex 2 MG GUM BUCCAL (10:13)
--- NOTE | 2023-02-10 13:16 | HO.PSYCHPN ---
Subjective Subjective Date of Service: 02/10/23 Reason For Visit: SI Interim History: Patient reports she slept better after her room change. Asking about increase in Methadone because she feels its effects are not lasting through the day. Offered Cloniidne but patient said It's not going to do anything. She denies SI. She reports she is tolerating her medications well. She denies AVH. Review of Systems Review of Systems Constitutional : No Weight loss, No Fever, No Chills, No Night Sweats, No Fatigue, No Malaise ENT/Mouth : No Hearing loss, No Ear Pain, No Nasal Congestion, No Sinus Pain, No Hoarseness, No sore throat, No Rhinorrhea, No Swallowing Difficulty Eyes: No Eye Pain, No Swelling, No Redness, No Foreign Body, No Discharge, No Vision Changes Cardiovascular : No Chest Pain, No SOB, No Dyspnea on Exertion, No Orthopnea, No Edema, No Palpitations Respiratory : No Cough, No Sputum, No Wheezing, No Smoke Exposure, No Dyspnea Gastrointestinal : No Nausea, No Vomiting, No Diarrhea, No Constipation, No abdominal Pain, No Hematochezia, No Melena Genitourinary : no irregular bleeding, No Dysuria, No Urinary Frequency, No Hematuria, No Urinary Incontinence, No Urgency, No Flank Pain, No Urinary Flow Changes, No Hesitancy Musculoskeletal : No joint pain, No Myalgias, No Joint Swelling Skin : Complaining of skin abscesses that hurt Neuro : No Weakness, No Numbness, No Paresthesias, No Loss of Consciousness, No Dizziness, No Headache Psych : Complaining of depression, being off meds, reports SI with undisclosed plan, no HI Heme/Lymph: No Bruising, No Bleeding,No Lymphadenopathy Endocrine : No Polyuria, No Polydipsia, No Temperature Intolerance Mental Status Exam Mental Status Exam Narrative: Appearance: wearing hospital gown, poor hygiene, in NAD Behavior: superficially cooperative Psychomotor: no agitation or retardation noted Speech: clear, normal rate/rhythm/volume, spontaneous TP: linear TC: no s/s of psychosis or delusions, feeling tired, not ready to engage in substance use tx, Mood: tired' Affect: somnolent SI: denies HI: denies VH/AH: none Delusions: none Insight/judgment: poor x 2 Memory/cog: alert, oriented x 3. Diagnostics Vital Signs (24Hr): Vital Signs - 24 hr 02/09/23 17:19 02/10/23 08:00 Temperature 97.6 F 98.4 F Pulse Rate 64 78 Respiratory Rate 18 Blood Pressure 105/64 121/66 Pulse Oximetry 97 98 Oxygen Delivery Method Room Air Room Air BMI result Body Mass Index 38.3 Labs 02/06/23 08:48 02/07/23 08:08 Medications Medications Current Medications Al Hydroxide/Mg Hydroxide (Magnesium Hydrox/Alum Hydrox 30 Ml Oral.Susp) 30 ml PO Q6H PRN PRN Reason: Heartburn/Nausea Doxycycline Monohydrate (Doxycycline Monohydrate 100 Mg Capsule) 100 mg PO BID [facility] Last Admin: 02/10/23 08:12 Dose: 100 mg Fluoxetine HCl (Fluoxetine Hcl 20 Mg Capsule) 20 mg PO DAILY [facility] Last Admin: 02/10/23 08:12 Dose: 20 mg Gabapentin (Gabapentin 300 Mg Capsule) 300 mg PO BID [facility] Last Admin: 02/10/23 08:12 Dose: 300 mg Hydroxyzine HCl (Hydroxyzine Hcl 25 Mg Tablet) 25 mg PO TID PRN PRN Reason: anxiety Last Admin: 02/08/23 15:06 Dose: 25 mg Ibuprofen (Ibuprofen 600 Mg Tablet) 600 mg PO Q8H PRN PRN Reason: Pain, Mild (Pain Scale 1-3) Last Admin: 02/09/23 20:25 Dose: 600 mg Magnesium Hydroxide (Milk Of Magnesia 30 Ml Oral.Susp) 30 ml PO DAILY PRN PRN Reason: Constipation Methadone HCl (Methadone Hcl 20 Mg/2 Ml Oral.Conc) 20 mg PO DAILY [facility] Last Admin: 02/10/23 08:12 Dose: 20 mg Nicotine Polacrilex (Nicotine Polacrilex 2 Mg Gum) 2 mg BUCCAL Q2H PRN PRN Reason: Nicotine Cravings Last Admin: 02/10/23 10:13 Dose: 2 mg Nicotine Polacrilex (Nicotine Polacrilex Lozenge 2 Mg Lozenge) 2 mg BUCCAL Q2H PRN PRN Reason: Nicotine Cravings Trazodone HCl (Trazodone Hcl 50 Mg Tablet) 50 mg PO BEDTIME PRN PRN Reason: Insomnia Last Admin: 02/10/23 03:25 Dose: 50 mg Allergies Allergies Allergy/AdvReac Type Severity Reaction Status Date / Time Penicillins [PENICILLINS] Allergy Unknown THROAT Verified 01/28/23 22:58 CLOSES haloperidol AdvReac Severe pharingeal Verified 01/28/23 22:58 dystonia Assessment & Plan Assessment & Plan (1) MDD (major depressive disorder), recurrent episode, moderate: Status: Acute Code(s): F33.1 - Major depressive disorder, recurrent, moderate (2) Opioid use disorder: Status: Acute Code(s): F11.90 - Opioid use, unspecified, uncomplicated Plan Ms. Pires is a 27 year-old woman with hx of MDD, opioids, cocaine use disorder who self presented to ED reporting increased depression and SI. Utox positive for cocaine, opioids. We discussed risks, benefits and alternative treatment options. Pt in agreement to restart prozac. She does report not taking any psychotropic meds in several months. Currently, she appears oversedated, decreased seroquel. PLAN 1. Admit to M5, CV, 15 minutes checks for safety. 2. Continue prozac 20mg po daily. seroquel prn at this point as she appears oversedated. 3. Aftercare planning. 4. Give narcan at time of d/c 02/10: Continue current treatment plan. Defer Methadone dose increase to primary team. Reason for continued inpatient stay Substantial Risk for: harm to self, inability to function and rapid decompensation Time Spent With Patient Time: Total time managing care of this patient today ____ minutes.
[2023-02-10] MEDS: Ibuprofen 600 MG TABLET PO (17:39)
[2023-02-10] MEDS: hydrOXYzine HCL 25 MG TABLET PO (17:40)
[2023-02-10 18:00] VITALS: BP 120/81; PULSE 85; TEMP 25.5; O2SAT 97
[2023-02-10] MEDS: cloNIDine HCL 0.1 MG TABLET PO (19:23)
[2023-02-10] MEDS: Ondansetron ODT 8 MG TAB.RAPDIS TRANSLINGU (19:24)
[2023-02-10] MEDS: Nicotine Polacrilex Lozenge 2 MG LOZENGE BUCCAL (19:35)
[2023-02-11] MEDS: traZODone HCL 50 MG TABLET PO ×3 (01:42→20:33)
[2023-02-11 06:00] VITALS: BP 112/59; PULSE 71; RESP 18; TEMP 36.3; O2SAT 98
[2023-02-11] MEDS: FLUoxetine HCl 20 MG CAPSULE PO (08:10)
[2023-02-11] MEDS: methADONE HCl 20 MG/2 ML ORAL.CONC PO ×2 (08:10→10:56)
[2023-02-11] MEDS: Gabapentin 300 MG CAPSULE PO ×2 (08:10→19:27)
[2023-02-11] MEDS: Doxycycline Monohydrate 100 MG CAPSULE PO ×2 (08:10→19:27)
[2023-02-11] MEDS: Nicotine Polacrilex Lozenge 2 MG LOZENGE BUCCAL ×3 (09:12→20:34)
--- NOTE | 2023-02-11 09:13 | P.PNPSI_ITS ---
Subjective Subjective Date of Service: 02/11/23 Reason For Visit: SI Subjective Notes: Conditional Voluntary Interim History: Pt report she has been sleeping through the night. She reports she continues to feel depressed. She denies SI/HI. She asks for higher dose of methadone. Pt seen by addiction medicine- methadone increased to 40mg po daily. No VH/AH. Review of Systems Review of Systems Constitutional : No Weight loss, No Fever, No Chills, No Night Sweats, No Fatigue, No Malaise ENT/Mouth : No Hearing loss, No Ear Pain, No Nasal Congestion, No Sinus Pain, No Hoarseness, No sore throat, No Rhinorrhea, No Swallowing Difficulty Eyes: No Eye Pain, No Swelling, No Redness, No Foreign Body, No Discharge, No Vision Changes Cardiovascular : No Chest Pain, No SOB, No Dyspnea on Exertion, No Orthopnea, No Edema, No Palpitations Respiratory : No Cough, No Sputum, No Wheezing, No Smoke Exposure, No Dyspnea Gastrointestinal : No Nausea, No Vomiting, No Diarrhea, No Constipation, No abdominal Pain, No Hematochezia, No Melena Genitourinary : no irregular bleeding, No Dysuria, No Urinary Frequency, No Hematuria, No Urinary Incontinence, No Urgency, No Flank Pain, No Urinary Flow Changes, No Hesitancy Musculoskeletal : No joint pain, No Myalgias, No Joint Swelling Skin : Complaining of skin abscesses that hurt Neuro : No Weakness, No Numbness, No Paresthesias, No Loss of Consciousness, No Dizziness, No Headache Psych : Complaining of depression, being off meds, reports SI with undisclosed plan, no HI Heme/Lymph: No Bruising, No Bleeding,No Lymphadenopathy Endocrine : No Polyuria, No Polydipsia, No Temperature Intolerance Mental Status Exam Mental Status Exam Narrative: Appearance: wearing hospital gown, poor hygiene, in NAD Behavior: superficially cooperative Psychomotor: no agitation or retardation noted Speech: clear, normal rate/rhythm/volume, spontaneous TP: linear TC: no s/s of psychosis or delusions, feeling tired, not ready to engage in substance use tx, Mood: tired' Affect: somnolent SI: denies HI: denies VH/AH: none Delusions: none Insight/judgment: poor x 2 Memory/cog: alert, oriented x 3. Diagnostics Vital Signs (24Hr): Vital Signs - 24 hr 02/10/23 18:00 02/11/23 06:00 Temperature 78 F L 97.4 F Pulse Rate 85 71 Respiratory Rate 18 Blood Pressure 120/81 112/59 L Pulse Oximetry 97 98 Oxygen Delivery Method Room Air Room Air BMI result Body Mass Index 38.3 Labs 02/06/23 08:48 02/07/23 08:08 Medications Medications Current Medications Al Hydroxide/Mg Hydroxide (Magnesium Hydrox/Alum Hydrox 30 Ml Oral.Susp) 30 ml PO Q6H PRN PRN Reason: Heartburn/Nausea Clonidine HCl (Clonidine Hcl 0.1 Mg Tablet) 0.1 mg PO Q6H PRN; Protocol PRN Reason: palpitations Last Admin: 02/10/23 19:23 Dose: 0.1 mg Doxycycline Monohydrate (Doxycycline Monohydrate 100 Mg Capsule) 100 mg PO BID [facility] Last Admin: 02/11/23 08:10 Dose: 100 mg Fluoxetine HCl (Fluoxetine Hcl 20 Mg Capsule) 20 mg PO DAILY [facility] Last Admin: 02/11/23 08:10 Dose: 20 mg Gabapentin (Gabapentin 300 Mg Capsule) 300 mg PO BID [facility] Last Admin: 02/11/23 08:10 Dose: 300 mg Hydroxyzine HCl (Hydroxyzine Hcl 25 Mg Tablet) 25 mg PO TID PRN PRN Reason: anxiety Last Admin: 02/10/23 17:40 Dose: 25 mg Ibuprofen (Ibuprofen 600 Mg Tablet) 600 mg PO Q8H PRN PRN Reason: Pain, Mild (Pain Scale 1-3) Last Admin: 02/10/23 17:39 Dose: 600 mg Magnesium Hydroxide (Milk Of Magnesia 30 Ml Oral.Susp) 30 ml PO DAILY PRN PRN Reason: Constipation Methadone HCl (Methadone Hcl 20 Mg/2 Ml Oral.Conc) 20 mg PO DAILY [facility] Last Admin: 02/11/23 08:10 Dose: 20 mg Nicotine Polacrilex (Nicotine Polacrilex 2 Mg Gum) 2 mg BUCCAL Q2H PRN PRN Reason: Nicotine Cravings Last Admin: 02/10/23 10:13 Dose: 2 mg Nicotine Polacrilex (Nicotine Polacrilex Lozenge 2 Mg Lozenge) 2 mg BUCCAL Q2H PRN PRN Reason: Nicotine Cravings Last Admin: 02/11/23 09:12 Dose: 2 mg Ondansetron HCl (Ondansetron Odt 8 Mg Tab.Rapdis) 8 mg TRANSLINGU Q8H PRN PRN Reason: Nausea Last Admin: 02/10/23 19:24 Dose: 8 mg Trazodone HCl (Trazodone Hcl 50 Mg Tablet) 50 mg PO BEDTIME PRN PRN Reason: Insomnia Last Admin: 02/11/23 01:42 Dose: 50 mg Allergies Allergies Allergy/AdvReac Type Severity Reaction Status Date / Time Penicillins [PENICILLINS] Allergy Unknown THROAT Verified 01/28/23 22:58 CLOSES haloperidol AdvReac Severe pharingeal Verified 01/28/23 22:58 dystonia Assessment & Plan Assessment & Plan (1) MDD (major depressive disorder), recurrent episode, moderate: Status: Acute Code(s): F33.1 - Major depressive disorder, recurrent, moderate (2) Opioid use disorder: Status: Acute Code(s): F11.90 - Opioid use, unspecified, uncomplicated Plan Ms. Pires is a 27 year-old woman with hx of MDD, opioids, cocaine use disorder who self presented to ED reporting increased depression and SI. Utox positive for cocaine, opioids. We discussed risks, benefits and alternative treatment options. Pt in agreement to restart prozac. She does report not taking any psychotropic meds in several months. Currently, she appears oversedated, decreased seroquel. PLAN 02/11 increase prozac to 40mg po daily. Methadone increased to 40mg po daily. right hand numbness, no pain. no s/s of infection. Reason for continued inpatient stay Substantial Risk for: harm to self Time Spent With Patient Time: Total time managing care of this patient today ____ minutes.
--- NOTE | 2023-02-11 12:56 | MHC.RECOVRN ---
Addendum entered by Jenelle Acosta RN 02/11/23 14:32: Addiction consult received, pt with hx of 1-2 bundles a day last use was immediately prior to coming in to the hospital. Pt has been maintained on 20mg of methadone for the past 5 days, pt endorsing withdrawal symptoms: nausea, hot and cold flashes, joint pain, and stomach upset. After discussing with Ally Kaye APRN- plan made to increase dose by 20mg to a total of 40mg a day. Dose increased and pt received extra dose. Social work aware pt will need referral to [facility]. Plan to check in with pt tomorrow after dosing to assess for any withdrawal symptoms. Original Note: Met with pt, pt looks well- bright affect, smiling, alert. Pt reports she feels so much better after receiving additional 20mg of Methadone. Pt reports she had been sick all weekend .
[2023-02-11] MEDS: Ibuprofen 600 MG TABLET PO (13:12)
[2023-02-11] MEDS: Acetaminophen 325 MG TABLET 650 MG PO (18:26)
[2023-02-11 19:15] VITALS: BP 150/110; PULSE 118; O2SAT 99
[2023-02-11] MEDS: cloNIDine HCL 0.1 MG TABLET PO (19:27)
[2023-02-11 19:33] VITALS: BP 131/60; PULSE 69; O2SAT 99
[2023-02-12 06:00] VITALS: BP 132/82; PULSE 71; TEMP 36.4; O2SAT 99
[2023-02-12] MEDS: methADONE HCl 20 MG/2 ML ORAL.CONC 45 MG PO (08:37)
[2023-02-12] MEDS: Acetaminophen 325 MG TABLET 650 MG PO (08:38)
[2023-02-12] MEDS: hydrOXYzine HCL 25 MG TABLET PO (08:39)
[2023-02-12] MEDS: FLUoxetine HCl 20 MG CAPSULE 40 MG PO (08:39)
[2023-02-12] MEDS: Doxycycline Monohydrate 100 MG CAPSULE PO ×2 (08:39→19:21)
[2023-02-12] MEDS: Ondansetron ODT 8 MG TAB.RAPDIS TRANSLINGU (08:40)
[2023-02-12] MEDS: Gabapentin 300 MG CAPSULE PO ×2 (08:40→19:21)
[2023-02-12] MEDS: Nicotine Polacrilex Lozenge 2 MG LOZENGE BUCCAL ×3 (09:26→20:05)
[2023-02-12] MEDS: Ibuprofen 600 MG TABLET PO ×2 (09:26→18:36)
[2023-02-12] MEDS: QUEtiapine Fumarate 100 MG TABLET PO (11:08)
--- NOTE | 2023-02-12 13:50 | MHC.RECOVRN ---
Spoke with Basilia at [facility] (formerly [facility]), pt last dosed 01/18/23, 55 mg methadone. Ally Solano APRN, aware.
--- NOTE | 2023-02-12 14:16 | HO.ADDICT_ITS ---
History of Present Illness Date of Service: 02/12/2023 Chief Complaint: SI Reason for Consult: OUD--methadone titration Requesting physician: Nida Sanches Discussed with referring provider: Yes Sources of Information: patient interviewed and chart reviewed HPI Narrative: Patient is a 27 year old female with OUD currently admitted to unit with . Known to this chart writer via previous admission. Consult requested as patient was initiated on methadone while in ED awaiting admission. Per chart review patient received methadone 20mg over the wkend, and requested increase in dose. Additional 20mg ordered and administered yesterday with positive effect. Patient seen by this chart writer on M5. Methadone dose today 45mg. Awake, alert, pleasant and engaged in interview. Reporting withdrawal sx much improved, however experiencing worsening cravings and considering signing 3 day notice. She states she was previously on 60mg methadone at [facility], and her last dose was prior to recurrence of use-- end of December She states that prior to most recent recurrence she had been in recovery for almost one year following [address] commitment. She was living at her fathers home, and engaged in treatment at [facility]. She reports using btwn 1-3 bundles of heroin/fentanyl daily along with $30-$80 worth of cocaine, depending on how much money she had available. Denies any recent overdose. [facility] reporting patients last dose was on 01/18, 55mg Past Psychiatric History: Inpatient: age 12 at [facility]; [facility] 02/2022 OP: none Review of Systems Constitutional: Reports as per HPI Diagnostics Vital Signs (24Hr): Vital Signs - 24 hr 02/11/23 19:15 02/11/23 19:33 02/12/23 06:00 Temperature 97.5 F Pulse Rate 118 H 69 71 Blood Pressure 150/110 H 131/60 132/82 Pulse Oximetry 99 99 99 Oxygen Delivery Method Room Air Room Air BMI result Body Mass Index 38.3 Labs 02/06/23 08:48 02/07/23 08:08 Mental Status Exam Mental Status Exam Level of Consciousness: Awake and Alert Patient Behavior: Anxious Mood Description: Anxious Affect Description: Anxious Thought Content: positive for Intact Medications Medications Current Medications Acetaminophen (Acetaminophen 325 Mg Tablet) 650 mg PO Q6H PRN PRN Reason: Pain, Mild (Pain Scale 1-3) Last Admin: 02/12/23 08:38 Dose: 650 mg Al Hydroxide/Mg Hydroxide (Magnesium Hydrox/Alum Hydrox 30 Ml Oral.Susp) 30 ml PO Q6H PRN PRN Reason: Heartburn/Nausea Clonidine HCl (Clonidine Hcl 0.1 Mg Tablet) 0.1 mg PO Q6H PRN; Protocol PRN Reason: palpitations Last Admin: 02/11/23 19:27 Dose: 0.1 mg Doxycycline Monohydrate (Doxycycline Monohydrate 100 Mg Capsule) 100 mg PO BID [facility] Last Admin: 02/12/23 08:39 Dose: 100 mg Fluoxetine HCl (Fluoxetine Hcl 20 Mg Capsule) 40 mg PO DAILY [facility] Last Admin: 02/12/23 08:39 Dose: 40 mg Gabapentin (Gabapentin 300 Mg Capsule) 300 mg PO BID [facility] Last Admin: 02/12/23 08:40 Dose: 300 mg Hydroxyzine HCl (Hydroxyzine Hcl 25 Mg Tablet) 25 mg PO TID PRN PRN Reason: anxiety Last Admin: 02/12/23 08:39 Dose: 25 mg Ibuprofen (Ibuprofen 600 Mg Tablet) 600 mg PO Q8H PRN PRN Reason: Pain, Mild (Pain Scale 1-3) Last Admin: 02/12/23 09:26 Dose: 600 mg Magnesium Hydroxide (Milk Of Magnesia 30 Ml Oral.Susp) 30 ml PO DAILY PRN PRN Reason: Constipation Methadone HCl (Methadone Hcl 20 Mg/2 Ml Oral.Conc) 45 mg PO DAILY [facility] Last Admin: 02/12/23 08:37 Dose: 45 mg Nicotine Polacrilex (Nicotine Polacrilex 2 Mg Gum) 2 mg BUCCAL Q2H PRN PRN Reason: Nicotine Cravings Last Admin: 02/10/23 10:13 Dose: 2 mg Nicotine Polacrilex (Nicotine Polacrilex Lozenge 2 Mg Lozenge) 2 mg BUCCAL Q2H PRN PRN Reason: Nicotine Cravings Last Admin: 02/12/23 09:26 Dose: 2 mg Ondansetron HCl (Ondansetron Odt 8 Mg Tab.Rapdis) 8 mg TRANSLINGU Q8H PRN PRN Reason: Nausea Last Admin: 02/12/23 08:40 Dose: 8 mg Quetiapine Fumarate (Quetiapine Fumarate 100 Mg Tablet) 100 mg PO DAILY [facility] Last Admin: 02/12/23 11:08 Dose: 100 mg Quetiapine Fumarate (Quetiapine Fumarate 200 Mg Tablet) 200 mg PO BEDTIME [facility] Senna/Docusate Sodium (Sennosides/Docusate Sodium Tablet) 1 tab PO BID [facility] Trazodone HCl (Trazodone Hcl 50 Mg Tablet) 50 mg PO BEDTIME PRN PRN Reason: Insomnia Last Admin: 02/11/23 20:33 Dose: 50 mg Allergies Allergies Allergy/AdvReac Type Severity Reaction Status Date / Time Penicillins [PENICILLINS] Allergy Unknown THROAT Verified 01/28/23 22:58 CLOSES haloperidol AdvReac Severe pharingeal Verified 01/28/23 22:58 dystonia Assessment & Plan Assessment & Plan (1) Opioid use disorder: Status: Acute Code(s): F11.90 - Opioid use, unspecified, uncomplicated Assessment and Plan: * increase methadone to 55mg 02/13 * would benefit from STI screening due to risky behaviors prior to admission--patient declining at time of interview I'm nervous about the results * vocational education teacher to check in tmrw Total time managing care of this patient today _45___ minutes. [facility] Past Medical History Medical History (Updated 02/08/23 @ 08:51 by Nida Sanches) Opioid use disorder Drug-induced psychotic disorder Asthma Major depression Social History Social History Household Members: None Household Members Other:: Had roommate, moved out, lived in tent for @1 wk, went to detox. Housing: Homeless Do you presently have visiting nurse or other home services: No Alcohol intake: never Patient Tobacco Use Status: Current everyday Tobacco user Tobacco use type: Cigarette Cigarette Packs Per Day: 0.5 Cigarettes Per Day: 10.0 e-Cigarette/Vaping Use: Currently Using Second Hand Smoke Exposure: Yes Substance Use Type: Amphetamines, Crack/Cocaine, Heroin and Other Advance Directives Date on File: 03/05/22 service: No Sexual orientation: Don't Know
--- NOTE | 2023-02-12 14:52 | P.PNPSI_ITS ---
Subjective Subjective Date of Service: 02/12/23 Reason For Visit: SI Subjective Notes: Conditional Voluntary Interim History: Pt presents as much more awake. She reports less depressed mood. She denies SI/HI. She reports she wants to go to [facility]. SW sent referral for TSS. She has been visible on the unit. Encouraged to attend groups. She is glad methadone dose increased. She reports sleeping well but request ambien, which apparently was prescribed by OP provider (she has to reconnect with provider but gave this life insurance underwriter permission to contact to restablish care). started on meds to prevent constipation with methadone. restarted seroquel now that she is not somnolent. Review of Systems Review of Systems Constitutional : No Weight loss, No Fever, No Chills, No Night Sweats, No Fatigue, No Malaise ENT/Mouth : No Hearing loss, No Ear Pain, No Nasal Congestion, No Sinus Pain, No Hoarseness, No sore throat, No Rhinorrhea, No Swallowing Difficulty Eyes: No Eye Pain, No Swelling, No Redness, No Foreign Body, No Discharge, No Vision Changes Cardiovascular : No Chest Pain, No SOB, No Dyspnea on Exertion, No Orthopnea, No Edema, No Palpitations Respiratory : No Cough, No Sputum, No Wheezing, No Smoke Exposure, No Dyspnea Gastrointestinal : No Nausea, No Vomiting, No Diarrhea, No Constipation, No abdominal Pain, No Hematochezia, No Melena Genitourinary : no irregular bleeding, No Dysuria, No Urinary Frequency, No Hematuria, No Urinary Incontinence, No Urgency, No Flank Pain, No Urinary Flow Changes, No Hesitancy Musculoskeletal : No joint pain, No Myalgias, No Joint Swelling Skin : Complaining of skin abscesses that hurt Neuro : No Weakness, No Numbness, No Paresthesias, No Loss of Consciousness, No Dizziness, No Headache Psych : Complaining of depression, being off meds, reports SI with undisclosed plan, no HI Heme/Lymph: No Bruising, No Bleeding,No Lymphadenopathy Endocrine : No Polyuria, No Polydipsia, No Temperature Intolerance Mental Status Exam Mental Status Exam Narrative: Appearance: wearing hospital gown, poor hygiene, in NAD Behavior: superficially cooperative Psychomotor: no agitation or retardation noted Speech: clear, normal rate/rhythm/volume, spontaneous TP: linear TC: no s/s of psychosis or delusions, feeling tired, not ready to engage in substance use tx, Mood: tired' Affect: somnolent SI: denies HI: denies VH/AH: none Delusions: none Insight/judgment: poor x 2 Memory/cog: alert, oriented x 3. Diagnostics Vital Signs (24Hr): Vital Signs - 24 hr 02/11/23 19:15 02/11/23 19:33 02/12/23 06:00 Temperature 97.5 F Pulse Rate 118 H 69 71 Blood Pressure 150/110 H 131/60 132/82 Pulse Oximetry 99 99 99 Oxygen Delivery Method Room Air Room Air BMI result Body Mass Index 38.3 Labs 02/06/23 08:48 02/07/23 08:08 Medications Medications Current Medications Acetaminophen (Acetaminophen 325 Mg Tablet) 650 mg PO Q6H PRN PRN Reason: Pain, Mild (Pain Scale 1-3) Last Admin: 02/12/23 08:38 Dose: 650 mg Al Hydroxide/Mg Hydroxide (Magnesium Hydrox/Alum Hydrox 30 Ml Oral.Susp) 30 ml PO Q6H PRN PRN Reason: Heartburn/Nausea Clonidine HCl (Clonidine Hcl 0.1 Mg Tablet) 0.1 mg PO Q6H PRN; Protocol PRN Reason: palpitations Last Admin: 02/11/23 19:27 Dose: 0.1 mg Doxycycline Monohydrate (Doxycycline Monohydrate 100 Mg Capsule) 100 mg PO BID [facility] Last Admin: 02/12/23 08:39 Dose: 100 mg Fluoxetine HCl (Fluoxetine Hcl 20 Mg Capsule) 40 mg PO DAILY [facility] Last Admin: 02/12/23 08:39 Dose: 40 mg Gabapentin (Gabapentin 300 Mg Capsule) 300 mg PO BID [facility] Last Admin: 02/12/23 08:40 Dose: 300 mg Hydroxyzine HCl (Hydroxyzine Hcl 25 Mg Tablet) 25 mg PO TID PRN PRN Reason: anxiety Last Admin: 02/12/23 08:39 Dose: 25 mg Ibuprofen (Ibuprofen 600 Mg Tablet) 600 mg PO Q8H PRN PRN Reason: Pain, Mild (Pain Scale 1-3) Last Admin: 02/12/23 09:26 Dose: 600 mg Magnesium Hydroxide (Milk Of Magnesia 30 Ml Oral.Susp) 30 ml PO DAILY PRN PRN Reason: Constipation Methadone HCl (Methadone Hcl 20 Mg/2 Ml Oral.Conc) 45 mg PO DAILY [facility] Last Admin: 02/12/23 08:37 Dose: 45 mg Nicotine Polacrilex (Nicotine Polacrilex 2 Mg Gum) 2 mg BUCCAL Q2H PRN PRN Reason: Nicotine Cravings Last Admin: 02/10/23 10:13 Dose: 2 mg Nicotine Polacrilex (Nicotine Polacrilex Lozenge 2 Mg Lozenge) 2 mg BUCCAL Q2H PRN PRN Reason: Nicotine Cravings Last Admin: 02/12/23 09:26 Dose: 2 mg Ondansetron HCl (Ondansetron Odt 8 Mg Tab.Rapdis) 8 mg TRANSLINGU Q8H PRN PRN Reason: Nausea Last Admin: 02/12/23 08:40 Dose: 8 mg Quetiapine Fumarate (Quetiapine Fumarate 100 Mg Tablet) 100 mg PO DAILY [facility] Last Admin: 02/12/23 11:08 Dose: 100 mg Quetiapine Fumarate (Quetiapine Fumarate 200 Mg Tablet) 200 mg PO BEDTIME [facility] Senna/Docusate Sodium (Sennosides/Docusate Sodium Tablet) 1 tab PO BID [facility] Trazodone HCl (Trazodone Hcl 50 Mg Tablet) 50 mg PO BEDTIME PRN PRN Reason: Insomnia Last Admin: 02/11/23 20:33 Dose: 50 mg Allergies Allergies Allergy/AdvReac Type Severity Reaction Status Date / Time Penicillins [PENICILLINS] Allergy Unknown THROAT Verified 01/28/23 22:58 CLOSES haloperidol AdvReac Severe pharingeal Verified 01/28/23 22:58 dystonia Assessment & Plan Assessment & Plan (1) MDD (major depressive disorder), recurrent episode, moderate: Status: Acute Code(s): F33.1 - Major depressive disorder, recurrent, moderate (2) Opioid use disorder: Status: Acute Code(s): F11.90 - Opioid use, unspecified, uncomplicated Plan Ms. Pires is a 27 year-old woman with hx of MDD, opioids, cocaine use disorder who self presented to ED reporting increased depression and SI. Utox positive for cocaine, opioids. We discussed risks, benefits and alternative treatment options. Pt in agreement to restart prozac. She does report not taking any psychotropic meds in several months. Currently, she appears oversedated, decreased seroquel. PLAN 02/11 increase prozac to 40mg po daily. Methadone increased to 40mg po daily. right hand numbness, no pain. no s/s of infection. 02/12 restart seroquel 100mg po daily and 200mg po qhs- monitor over sedation. Reason for continued inpatient stay Substantial Risk for: inability to function Time Spent With Patient Time: Total time managing care of this patient today ____ minutes.
[2023-02-12 19:16] VITALS: BP 93/60; PULSE 69; TEMP 36.1
[2023-02-12] MEDS: Sennosides/Docusate Sodium TABLET 1 TAB PO (19:21)
[2023-02-12] MEDS: QUEtiapine Fumarate 200 MG TABLET PO (19:21)
[2023-02-12] MEDS: traZODone HCL 50 MG TABLET PO ×2 (19:23→20:23)
[2023-02-13] MEDS: Nicotine Polacrilex Lozenge 2 MG LOZENGE BUCCAL ×5 (01:24→19:14)
[2023-02-13] MEDS: traZODone HCL 50 MG TABLET PO ×2 (01:25→19:31)
[2023-02-13] MEDS: methADONE HCl 20 MG/2 ML ORAL.CONC 55 MG PO (08:31)
[2023-02-13] MEDS: Doxycycline Monohydrate 100 MG CAPSULE PO ×2 (08:32→19:31)
[2023-02-13] MEDS: QUEtiapine Fumarate 100 MG TABLET PO (08:32)
[2023-02-13] MEDS: Sennosides/Docusate Sodium TABLET 1 TAB PO ×2 (08:32→19:31)
[2023-02-13] MEDS: Gabapentin 300 MG CAPSULE PO ×2 (08:32→19:31)
[2023-02-13] MEDS: FLUoxetine HCl 20 MG CAPSULE 40 MG PO (08:32)
[2023-02-13 09:08] VITALS: BP 120/59; PULSE 70; RESP 18; TEMP 35.9; O2SAT 97
[2023-02-13] MEDS: Ibuprofen 600 MG TABLET PO (11:46)
[2023-02-13] MEDS: hydrOXYzine HCL 25 MG TABLET PO (11:46)
--- NOTE | 2023-02-13 12:06 | MHC.RECOVRN ---
Met with pt to follow up regarding methadone increase and provide support. Pt laying in bed, wakes to voice and met with t/w in treatment room. Pt reports difficulty sleeping at night due to roommate needing the light on but reports is able to sleep during the day. Pt reports prior to methadone administration this morning feeling hot/cold, diaphoretic, slight nausea. Pt reports not eating some meals because they give us too much food. Pt interested in continuing to increase methadone dose. Discussed STI screening, pt hesitant for screening of nontreatable infections, however, agreeable to screening of treatable infections. Pt states I have so much going on right now, I just am scared to add another thing. Pt reports concern regarding being able to return to outpatient provider, Cande at [facility] in [place], encouraged pt to discuss with SW. Pt reports referral has been sent to [facility] in [place], hopeful for acceptance. Pt denies other questions or concerns for t/w. Discussed with Ally Solano APRN.
[2023-02-13] MEDS: Acetaminophen 325 MG TABLET 650 MG PO (14:01)
--- NOTE | 2023-02-13 14:59 | PM.EVENT ---
Event Note Date of Service: 02/13/23 Event Note: Patient is a 27 year female PMH significant IVDU with heroin anxiety and depression who is seen for evaluation right hand numbness and tingling. Patient has been complaining of 1 week of numbness and tingling in her first three digits of right hand. Has experienced some numbness, tingling, and sharp shooting pains. Patient with injection sites at base of right thumb on dorsal aspect. Slight induration, no fluctuance. No sign of infection. Strength and ROM of fingers, hand, and wrist preserved. Most likely compression of median nerve secondary to IVDU injection site. Will order a wrist splint which should be worn at night. Can also be worn during the day prn. Continue gabapentin and ibuprofen p.r.n. for pain management. Thank you for allowing us to participate in the care of this patient. Signing off at this time. Please let us know if there are any acute complaints or questions. Time Spent With Patient Time: Total time managing care of this patient today ____ minutes.
--- NOTE | 2023-02-13 16:25 | HO.PSYCHPN ---
Subjective Subjective Date of Service: 02/13/23 Reason For Visit: SI Subjective Notes: Conditional Voluntary Interim History: Pt reports sleeping well- verified by nursing, still asking for ambien. Pt reports less depression and denies SI/HI. She reports hand continues to feel numbed and pain described as pin and needles- hospitalist consult place re: nerve damage or inflammation due to hand abcess which does not show any s/s of infection at this point. She is on doxy x 10 days, close to finish course. Pt encouraged to attend groups. Mostly in bed. Review of Systems Review of Systems Constitutional : No Weight loss, No Fever, No Chills, No Night Sweats, No Fatigue, No Malaise ENT/Mouth : No Hearing loss, No Ear Pain, No Nasal Congestion, No Sinus Pain, No Hoarseness, No sore throat, No Rhinorrhea, No Swallowing Difficulty Eyes: No Eye Pain, No Swelling, No Redness, No Foreign Body, No Discharge, No Vision Changes Cardiovascular : No Chest Pain, No SOB, No Dyspnea on Exertion, No Orthopnea, No Edema, No Palpitations Respiratory : No Cough, No Sputum, No Wheezing, No Smoke Exposure, No Dyspnea Gastrointestinal : No Nausea, No Vomiting, No Diarrhea, No Constipation, No abdominal Pain, No Hematochezia, No Melena Genitourinary : no irregular bleeding, No Dysuria, No Urinary Frequency, No Hematuria, No Urinary Incontinence, No Urgency, No Flank Pain, No Urinary Flow Changes, No Hesitancy Musculoskeletal : No joint pain, No Myalgias, No Joint Swelling Skin : Complaining of skin abscesses that hurt Neuro : No Weakness, No Numbness, No Paresthesias, No Loss of Consciousness, No Dizziness, No Headache Psych : Complaining of depression, being off meds, reports SI with undisclosed plan, no HI Heme/Lymph: No Bruising, No Bleeding,No Lymphadenopathy Endocrine : No Polyuria, No Polydipsia, No Temperature Intolerance Constitutional: Reports as per HPI Mental Status Exam Mental Status Exam Narrative: Appearance: wearing hospital gown, poor hygiene, in NAD Behavior: superficially cooperative Psychomotor: no agitation or retardation noted Speech: clear, normal rate/rhythm/volume, spontaneous TP: linear TC: no s/s of psychosis or delusions, feeling tired, not ready to engage in substance use tx, Mood: tired' Affect: somnolent SI: denies HI: denies VH/AH: none Delusions: none Insight/judgment: poor x 2 Memory/cog: alert, oriented x 3. Diagnostics Vital Signs (24Hr): Vital Signs - 24 hr 02/12/23 19:16 02/13/23 09:08 Temperature 96.9 F 96.7 F L Pulse Rate 69 70 Respiratory Rate 18 Blood Pressure 93/60 120/59 L Pulse Oximetry 97 Oxygen Delivery Method Room Air BMI result Body Mass Index 38.3 Labs 02/06/23 08:48 02/07/23 08:08 Medications Medications Current Medications Acetaminophen (Acetaminophen 325 Mg Tablet) 650 mg PO Q6H PRN PRN Reason: Pain, Mild (Pain Scale 1-3) Last Admin: 02/13/23 14:01 Dose: 650 mg Al Hydroxide/Mg Hydroxide (Magnesium Hydrox/Alum Hydrox 30 Ml Oral.Susp) 30 ml PO Q6H PRN PRN Reason: Heartburn/Nausea Clonidine HCl (Clonidine Hcl 0.1 Mg Tablet) 0.1 mg PO Q6H PRN; Protocol PRN Reason: palpitations Last Admin: 02/11/23 19:27 Dose: 0.1 mg Doxycycline Monohydrate (Doxycycline Monohydrate 100 Mg Capsule) 100 mg PO BID [facility] Stop: 02/16/23 23:59 Last Admin: 02/13/23 08:32 Dose: 100 mg Fluoxetine HCl (Fluoxetine Hcl 20 Mg Capsule) 40 mg PO DAILY [facility] Last Admin: 02/13/23 08:32 Dose: 40 mg Gabapentin (Gabapentin 300 Mg Capsule) 300 mg PO BID [facility] Last Admin: 02/13/23 08:32 Dose: 300 mg Hydroxyzine HCl (Hydroxyzine Hcl 25 Mg Tablet) 25 mg PO TID PRN PRN Reason: anxiety Last Admin: 02/13/23 11:46 Dose: 25 mg Ibuprofen (Ibuprofen 800 Mg Tablet) 800 mg PO Q6H PRN PRN Reason: Pain, Mild (Pain Scale 1-3) Magnesium Hydroxide (Milk Of Magnesia 30 Ml Oral.Susp) 30 ml PO DAILY PRN PRN Reason: Constipation Methadone HCl (Methadone Hcl 20 Mg/2 Ml Oral.Conc) 55 mg PO DAILY [facility] Last Admin: 02/13/23 08:31 Dose: 55 mg Nicotine Polacrilex (Nicotine Polacrilex 2 Mg Gum) 2 mg BUCCAL Q2H PRN PRN Reason: Nicotine Cravings Last Admin: 02/10/23 10:13 Dose: 2 mg Nicotine Polacrilex (Nicotine Polacrilex Lozenge 2 Mg Lozenge) 2 mg BUCCAL Q2H PRN PRN Reason: Nicotine Cravings Last Admin: 02/13/23 14:01 Dose: 2 mg Ondansetron HCl (Ondansetron Odt 8 Mg Tab.Rapdis) 8 mg TRANSLINGU Q8H PRN PRN Reason: Nausea Last Admin: 02/12/23 08:40 Dose: 8 mg Quetiapine Fumarate (Quetiapine Fumarate 100 Mg Tablet) 100 mg PO DAILY [facility] Last Admin: 02/13/23 08:32 Dose: 100 mg Quetiapine Fumarate (Quetiapine Fumarate 200 Mg Tablet) 200 mg PO BEDTIME [facility] Last Admin: 02/12/23 19:21 Dose: 200 mg Senna/Docusate Sodium (Sennosides/Docusate Sodium Tablet) 1 tab PO BID [facility] Last Admin: 02/13/23 08:32 Dose: 1 tab Trazodone HCl (Trazodone Hcl 50 Mg Tablet) 50 mg PO BEDTIME PRN PRN Reason: Insomnia Last Admin: 02/13/23 01:25 Dose: 50 mg Allergies Allergies Allergy/AdvReac Type Severity Reaction Status Date / Time Penicillins [PENICILLINS] Allergy Unknown THROAT Verified 01/28/23 22:58 CLOSES haloperidol AdvReac Severe pharingeal Verified 01/28/23 22:58 dystonia Assessment & Plan Assessment & Plan (1) MDD (major depressive disorder), recurrent episode, moderate: Status: Acute Code(s): F33.1 - Major depressive disorder, recurrent, moderate (2) Opioid use disorder: Status: Acute Code(s): F11.90 - Opioid use, unspecified, uncomplicated Assessment and Plan: increase methadone to 55mg 02/13 would benefit from STI screening due to risky behaviors prior to admission--patient declining at time of interview I'm nervous about the results county records management officer to check in tmrw Plan Ms. Pires is a 27 year-old woman with hx of opioid use disorder. 02/13- denies SI/HI. Pt reports sleeping well but asks for ambien- explained risks versus benefit of control substance. Reason for continued inpatient stay Substantial Risk for: inability to function Time Spent With Patient Time: Total time managing care of this patient today ____ minutes.
[2023-02-13] MEDS: cloNIDine HCL 0.1 MG TABLET PO (19:14)
[2023-02-13] MEDS: QUEtiapine Fumarate 200 MG TABLET PO (19:31)
[2023-02-13 19:34] VITALS: BP 105/55; PULSE 76; RESP 16; TEMP 36.6; O2SAT 99
[2023-02-14] MEDS: methADONE HCl 20 MG/2 ML ORAL.CONC 55 MG PO (08:09)
[2023-02-14] MEDS: FLUoxetine HCl 20 MG CAPSULE 40 MG PO (08:09)
[2023-02-14] MEDS: Sennosides/Docusate Sodium TABLET 1 TAB PO ×2 (08:10→20:18)
[2023-02-14] MEDS: Doxycycline Monohydrate 100 MG CAPSULE PO ×2 (08:10→20:18)
[2023-02-14] MEDS: QUEtiapine Fumarate 100 MG TABLET PO (08:10)
[2023-02-14] MEDS: Gabapentin 300 MG CAPSULE PO ×2 (08:10→20:18)
[2023-02-14] MEDS: Nicotine Polacrilex Lozenge 2 MG LOZENGE BUCCAL ×2 (08:48→13:12)
[2023-02-14] MEDS: Ibuprofen 800 MG TABLET PO (08:48)
[2023-02-14 09:27] VITALS: BP 107/60; PULSE 73; RESP 18; TEMP 36.6; O2SAT 98
[2023-02-14 10:25] VITALS: BP 123/61; PULSE 83
[2023-02-14] MEDS: cloNIDine HCL 0.1 MG TABLET PO ×2 (10:25→20:17)
--- NOTE | 2023-02-14 12:54 | HO.PSYCHPN ---
Subjective Subjective Date of Service: 02/14/23 Reason For Visit: SI Subjective Notes: Conditional Voluntary Interim History: Pt reports she is feeling good. She denies SI/HI. She reports sleeping better. She reports father told them her about sect 35. She was accepted to [facility] but reports she is not ready to to go. We discussed harm reduction- provide narcan. Medication Compliance: Yes Review of Systems Review of Systems Constitutional : No Weight loss, No Fever, No Chills, No Night Sweats, No Fatigue, No Malaise ENT/Mouth : No Hearing loss, No Ear Pain, No Nasal Congestion, No Sinus Pain, No Hoarseness, No sore throat, No Rhinorrhea, No Swallowing Difficulty Eyes: No Eye Pain, No Swelling, No Redness, No Foreign Body, No Discharge, No Vision Changes Cardiovascular : No Chest Pain, No SOB, No Dyspnea on Exertion, No Orthopnea, No Edema, No Palpitations Respiratory : No Cough, No Sputum, No Wheezing, No Smoke Exposure, No Dyspnea Gastrointestinal : No Nausea, No Vomiting, No Diarrhea, No Constipation, No abdominal Pain, No Hematochezia, No Melena Genitourinary : no irregular bleeding, No Dysuria, No Urinary Frequency, No Hematuria, No Urinary Incontinence, No Urgency, No Flank Pain, No Urinary Flow Changes, No Hesitancy Musculoskeletal : No joint pain, No Myalgias, No Joint Swelling Skin : Complaining of skin abscesses that hurt Neuro : No Weakness, No Numbness, No Paresthesias, No Loss of Consciousness, No Dizziness, No Headache Psych : Complaining of depression, being off meds, reports SI with undisclosed plan, no HI Heme/Lymph: No Bruising, No Bleeding,No Lymphadenopathy Endocrine : No Polyuria, No Polydipsia, No Temperature Intolerance Constitutional: Reports as per HPI Mental Status Exam Mental Status Exam Narrative: Appearance: wearing hospital gown, poor hygiene, in NAD Behavior: superficially cooperative Psychomotor: no agitation or retardation noted Speech: clear, normal rate/rhythm/volume, spontaneous TP: linear TC: no s/s of psychosis or delusions, feeling tired, not ready to engage in substance use tx, Mood: tired' Affect: somnolent SI: denies HI: denies VH/AH: none Delusions: none Insight/judgment: poor x 2 Memory/cog: alert, oriented x 3. Diagnostics Vital Signs (24Hr): Vital Signs - 24 hr 02/13/23 19:34 02/14/23 09:27 02/14/23 10:25 Temperature 97.8 F 98 F Pulse Rate 76 73 83 Respiratory Rate 16 18 Blood Pressure 105/55 L 107/60 123/61 Pulse Oximetry 99 98 Oxygen Delivery Method Room Air Room Air BMI result Body Mass Index 38.3 Labs 02/06/23 08:48 02/07/23 08:08 Medications Medications Current Medications Acetaminophen (Acetaminophen 325 Mg Tablet) 650 mg PO Q6H PRN PRN Reason: Pain, Mild (Pain Scale 1-3) Last Admin: 02/13/23 14:01 Dose: 650 mg Al Hydroxide/Mg Hydroxide (Magnesium Hydrox/Alum Hydrox 30 Ml Oral.Susp) 30 ml PO Q6H PRN PRN Reason: Heartburn/Nausea Clonidine HCl (Clonidine Hcl 0.1 Mg Tablet) 0.1 mg PO Q6H PRN; Protocol PRN Reason: palpitations Last Admin: 02/14/23 10:25 Dose: 0.1 mg Doxycycline Monohydrate (Doxycycline Monohydrate 100 Mg Capsule) 100 mg PO BID [facility] Stop: 02/16/23 23:59 Last Admin: 02/14/23 08:10 Dose: 100 mg Fluoxetine HCl (Fluoxetine Hcl 20 Mg Capsule) 40 mg PO DAILY [facility] Last Admin: 02/14/23 08:09 Dose: 40 mg Gabapentin (Gabapentin 300 Mg Capsule) 300 mg PO BID [facility] Last Admin: 02/14/23 08:10 Dose: 300 mg Hydroxyzine HCl (Hydroxyzine Hcl 25 Mg Tablet) 25 mg PO TID PRN PRN Reason: anxiety Last Admin: 02/13/23 11:46 Dose: 25 mg Ibuprofen (Ibuprofen 800 Mg Tablet) 800 mg PO Q6H PRN PRN Reason: Pain, Mild (Pain Scale 1-3) Last Admin: 02/14/23 08:48 Dose: 800 mg Magnesium Hydroxide (Milk Of Magnesia 30 Ml Oral.Susp) 30 ml PO DAILY PRN PRN Reason: Constipation Methadone HCl (Methadone Hcl 20 Mg/2 Ml Oral.Conc) 55 mg PO DAILY [facility] Last Admin: 02/14/23 08:09 Dose: 55 mg Nicotine Polacrilex (Nicotine Polacrilex 2 Mg Gum) 2 mg BUCCAL Q2H PRN PRN Reason: Nicotine Cravings Last Admin: 02/10/23 10:13 Dose: 2 mg Nicotine Polacrilex (Nicotine Polacrilex Lozenge 2 Mg Lozenge) 2 mg BUCCAL Q2H PRN PRN Reason: Nicotine Cravings Last Admin: 02/14/23 08:48 Dose: 2 mg Ondansetron HCl (Ondansetron Odt 8 Mg Tab.Rapdis) 8 mg TRANSLINGU Q8H PRN PRN Reason: Nausea Last Admin: 02/12/23 08:40 Dose: 8 mg Quetiapine Fumarate (Quetiapine Fumarate 100 Mg Tablet) 100 mg PO DAILY [facility] Last Admin: 02/14/23 08:10 Dose: 100 mg Quetiapine Fumarate (Quetiapine Fumarate 200 Mg Tablet) 200 mg PO BEDTIME JOHN Last Admin: 02/13/23 19:31 Dose: 200 mg Quetiapine Fumarate (Quetiapine Fumarate 50 Mg Tablet) 50 mg PO Q6H PRN PRN Reason: severe anxiety Senna/Docusate Sodium (Sennosides/Docusate Sodium Tablet) 1 tab PO BID [facility] Last Admin: 02/14/23 08:10 Dose: 1 tab Trazodone HCl (Trazodone Hcl 50 Mg Tablet) 50 mg PO BEDTIME PRN PRN Reason: Insomnia Last Admin: 02/13/23 19:31 Dose: 50 mg Allergies Allergies Allergy/AdvReac Type Severity Reaction Status Date / Time Penicillins [PENICILLINS] Allergy Unknown THROAT Verified 01/28/23 22:58 CLOSES haloperidol AdvReac Severe pharingeal Verified 01/28/23 22:58 dystonia Assessment & Plan Assessment & Plan (1) MDD (major depressive disorder), recurrent episode, moderate: Status: Acute Code(s): F33.1 - Major depressive disorder, recurrent, moderate (2) Opioid use disorder: Status: Acute Code(s): F11.90 - Opioid use, unspecified, uncomplicated Assessment and Plan: increase methadone to 55mg 02/13 would benefit from STI screening due to risky behaviors prior to admission--patient declining at time of interview I'm nervous about the results facilities painter to check in tmrw Plan Ms. Pires is a 27 year-old woman with hx of opioid use disorder. 02/13- denies SI/HI. Pt reports sleeping well but asks for ambien- explained risks versus benefit of control substance. 02/14 continue tx. dc prob tomorrow. Reason for continued inpatient stay Substantial Risk for: inability to function Time Spent With Patient Time: Total time managing care of this patient today ____ minutes.
--- NOTE | 2023-02-14 14:08 | MHC.RECOVRN ---
Met with pt in 517 to check in and provide support. Pt laying down, eyes closed, wakes to voice and easily engages in conversation. Pt reports feeling good and is discharging tomorrow. Pt is disappointed as she was not placed into a program and is unsure where she will be going when she leaves the hospital. Pt reports she will be going to [facility] for methadone as she will stay in the area and continue to try to get into a program. Pt denies questions or concerns for t/w. Discussed with Ally Solano APRN.
[2023-02-14] MEDS: Acetaminophen 325 MG TABLET 650 MG PO (15:50)
[2023-02-14 20:12] VITALS: BP 122/64; PULSE 62; TEMP 36.3; O2SAT 98
[2023-02-14] MEDS: traZODone HCL 50 MG TABLET PO (20:17)
[2023-02-14] MEDS: QUEtiapine Fumarate 200 MG TABLET PO (20:18)
[2023-02-15] MEDS: QUEtiapine Fumarate 50 MG TABLET PO (02:50)
[2023-02-15] MEDS: Nicotine Polacrilex Lozenge 2 MG LOZENGE BUCCAL ×2 (02:51→09:21)
[2023-02-15] MEDS: traZODone HCL 50 MG TABLET PO (02:53)
[2023-02-15] MEDS: Sennosides/Docusate Sodium TABLET 1 TAB PO (07:58)
[2023-02-15] MEDS: FLUoxetine HCl 20 MG CAPSULE 40 MG PO (07:58)
[2023-02-15] MEDS: Gabapentin 300 MG CAPSULE PO (07:58)
[2023-02-15] MEDS: QUEtiapine Fumarate 100 MG TABLET PO (07:58)
[2023-02-15] MEDS: Doxycycline Monohydrate 100 MG CAPSULE PO (07:58)
[2023-02-15] MEDS: methADONE HCl 20 MG/2 ML ORAL.CONC 60 MG PO (07:59)
[2023-02-15 08:15] VITALS: BP 125/72; PULSE 80; RESP 16; TEMP 35.7; O2SAT 99
--- NOTE | 2023-02-15 09:35 | P.DS_ITS ---
DS: Providers Provider Date of Service: 02/15/23 Date of admission: 02/06/23 14:41 Primary care physician: Unknown Physician Consults: 02/11/23 09:23 Addiction Medicine Routine Consulting Provider: Addiction Covering Reason for consultation: started on methadone and wants to continue Has provider been notified: Yes 02/13/23 11:16 Consult to Hospitalist Routine Comment: Consulting Provider: Hospitalist Reason For Exam: right hand absess increase in numbness and pain DS: Diagnosis Discharge Diagnosis (1) MDD (major depressive disorder), recurrent episode, moderate: Status: Acute (2) Opioid use disorder: Status: Acute DS: Medications Discharge Medications Home Medications: Home Medications Medication Instructions Recorded Confirmed ascorbic acid (vitamin C) 250 mg 250 mg PO DAILY 02/05/23 02/05/23 tablet benztropine 0.5 mg tablet 0.5 mg PO BEDTIME 02/05/23 02/05/23 fluoxetine 40 mg capsule 40 mg PO DAILY 02/05/23 02/05/23 gabapentin 300 mg capsule 300 mg PO BID 02/05/23 02/05/23 hydroxyzine HCl 25 mg tablet 25 mg PO TID PRN anxiety 02/05/23 02/05/23 mirtazapine 15 mg tablet 7.5 - 15 mg PO BEDTIME insomnia 02/05/23 02/05/23 quetiapine 150 mg tablet,extended 150 mg PO DAILY 02/05/23 02/05/23 release 24 hr quetiapine 400 mg tablet,extended 400 mg PO DAILY 02/05/23 02/05/23 release 24 hr zolpidem 6.25 mg tablet,extended 6.25 mg PO BEDTIME 02/05/23 02/05/23 release,multiphase Mental Status Exam Mental Status Exam Narrative: Appearance: wearing hospital gown, poor hygiene, in NAD Behavior: superficially cooperative Psychomotor: no agitation or retardation noted Speech: clear, normal rate/rhythm/volume, spontaneous TP: linear TC: no s/s of psychosis or delusions, feeling tired, not ready to engage in substance use tx, Mood: okay' Affect: brighter, congruent SI: denies HI: denies VH/AH: none Delusions: none Insight/judgment: poor x 2 Memory/cog: alert, oriented x 3. grossly intact to conversational testing. DS: Summary Hospital Course Hospital Course: HPI: Subjective Notes: Juarez Warning (given and shows understanding) and Conditional Voluntary Narrative: Ms. Pires is a 27 year-old woman with hx of Mood Disorder, opioid use disorder, cocaine use. Pt self presented increased depression, SI. Utox positive for cocaine, opioids, fentanyl. On the unit, pt reports feeling very tired. She reports she has not followed up with psychiatric care since she was discharged from admission here 02/2022. she reports she was here on an antidepressant but can't remember the name. When this lead technical writer stated that it was prozac, pt states I don't know. She denies SI/HI. She denies VH/AH. She is currently on methadone 20mg po daily, seems started here. Pt reports using about 2 bundles of heroin IV daily. She has visible track garcia on both forearms. She reports she is not ready to discuss substance use treatment at this time. Past Psychiatric History: Inpatient: age 12 at [facility]; [facility] [place] 02/2022 OP: none Medical Evaluation Reviewed: Yes HOSPITAL COURSE On the unit, pt was admitted on a CV and placed on 15 minutes checks for safety. Pt reported feeling depressed. No SI/HI. No signs of psychosis or delusions. Pt was ambivalent about doing a residential substance use treatment program. We discussed risks, benefits and alternative treatment options, she did agree to restart prozac and seroquel for mood. We discussed concern of prescribing control susbtances such as benzodiazepines or ambien as she continues to work on her recovery given risk of misuse or abuse and increase risk of accidental fatal overdose with concomitant use of opioids. Pt presented with brighter affect. She continue to denied suicidal or homicidal ideation. No signs of aggression towards self or others. Pt did minimize extend of substance use and its effects on her health. She was accepted to [facility]- but pt declined. While pt was on the unit, she was seen by addiction medicine. She was started on MAT methadone titrated to 50mg po daily. She was conected to Methadone clinic. Status at Discharge Cognitive/behavioral status at discharge: Pt with brighter, non labile affect. No SI/HI. No psychosis or delusions. Pt sleeping and eating well. No aggression towards self or others. Given narcan at time of discharge and discussed harm reduction. Functional status at discharge: independent ambulation Overall status at discharge: patient is progressing back to baseline Time Spent with Patient Time attestation: Total time managing care of this patient today __33__ minutes. Time spent: Greater than 30 minutes Discharge Plan Discharge Anticipated Discharge Date/Time: 02/15/23 09:38 Patient Disposition: Home, Self-Care Discharge Diagnosis: MDD Opioid Use Disorder Referrals: Clinical and support Options: [facility] [Other] - 02/19/23 4:00 pm (Hospital Discharge appointment for evaluation for therapy/psychiatric medication management. Appointment is in clinic in [place], [place].) [facility] [Other] - 02/16/23 7:00 am (Referral For Medication assisted treatment (Methadone). Patient will need to present for dosing on 02/16/23 at 7:00 am.) [facility] [Other] - 1 Week (Referral for [facility] step down placement ) Marisa Garay [facility] [Other] - 1 Week (Referral for [facility] placement for substance abuse treatment Patient may follow-up on referral after discharge ) Physician,Unknown J [Primary Care Provider] - 1 Week Discharge Medications: New nicotine (polacrilex) 2 mg Lozenge 2 mg buccal Q2H PRN (Reason: Nicotine Cravings) Qty: 30 0RF fluoxetine 40 mg capsule 40 mg PO DAILY Qty: 30 0RF trazodone 50 mg Tablet 50 mg PO BEDTIME PRN (Reason: Insomnia) Qty: 30 0RF ibuprofen 800 mg Tablet 800 mg PO Q6H PRN (Reason: Pain, Mild (Pain Scale 1-3)) Qty: 15 0RF sennosides-docusate sodium [Senna Plus] 8.6-50 mg Tablet 1 tab PO BID Qty: 60 0RF quetiapine 200 mg Tablet 200 mg PO BEDTIME Qty: 30 0RF quetiapine 100 mg Tablet 100 mg PO DAILY Qty: 30 0RF gabapentin 300 mg Capsule 300 mg PO BID Qty: 60 0RF methadone [Methadose] 10 mg/mL Concentrate 60 mg PO DAILY Qty: 0 0RF Rx Instructions: Partial Fill upon patient request. quetiapine 50 mg Tablet 50 mg PO TID PRN (Reason: severe anxiety) Qty: 90 0RF Discontinued fluoxetine 40 mg capsule 40 mg PO DAILY benztropine 0.5 mg tablet 0.5 mg PO BEDTIME ascorbic acid (vitamin C) 250 mg tablet 250 mg PO DAILY gabapentin 300 mg capsule 300 mg PO BID hydroxyzine HCl 25 mg tablet 25 mg PO TID PRN (Reason: anxiety) mirtazapine 15 mg tablet 7.5 - 15 mg PO BEDTIME zolpidem 6.25 mg tablet,ext release multiphase 6.25 mg PO BEDTIME quetiapine 400 mg tablet extended release 24 hr 400 mg PO DAILY quetiapine 150 mg tablet extended release 24 hr 150 mg PO DAILY Discharge Orders: Discharge Order (Routine); Ordered 02/15/23 Ordered By: Nida Sanches Diet: Regular diet Activity on Discharge: As tolerated Stand Alone Forms: Patient Portal Discharge page Care Plan Goals: 1. maintain mood 2. No SI/IH 3. Harm reduction- narcan given on discharge Health Concerns: Follow up with PCP Plan of Treatment: 1. Take medications as prescribed 2. Go to nearest ED or call 911 in event of emergency Assessment: Pt with brighter, non labile mood. NO SI/HI. Future oriented. No signs of psychosis or delusions. Pt not ready to do CSS at this point. Harm reduction discussed- given narcan on discharge.
[2023-02-15] MEDS: Naloxone HCl Nasal TAKE HOME 4 MG SPRAY 8 MG NOSTRILALT (09:41)
== END 2023-02-15 10:52 | disposition home or self-care (01) | DRG 751 ==
LOC: HO.ED 20:09 → HO.PM5 02-06 14:45
PROVIDERS: Physician Assistant Medical; Admitting Provider Psychiatry & Neurology Psychiatry; Emergency Provider Emergency Medicine; Visit Provider Social Worker
DX: F33.1 Major depressive disorder, recurrent, moderate (principal); R45.851 Suicidal ideations; Z91.148 Patient's other noncompliance with medication regimen for other reason; F11.20 Opioid dependence, uncomplicated; S64.11XA Injury of median nerve at wrist and hand level of right arm, initial encounter; X58.XXXA Exposure to other specified factors, initial encounter; F41.9 Anxiety disorder, unspecified; F17.210 Nicotine dependence, cigarettes, uncomplicated; J45.909 Unspecified asthma, uncomplicated; Z59.02 Unsheltered homelessness; Z71.6 Tobacco abuse counseling; Z20.822 Contact with and (suspected) exposure to COVID-19; Z79.899 Other long term (current) drug therapy
CPT/HCPCS: 36415; 80048; 80053; 80061; 80076; 80307; 81025; 85025; 87635; 92950; 93005; 99285; S9485

== ENCOUNTER → 2023-02-06 14:41 | Outpatient (BNV) | payer OTHER, SELFPAY | PROVIDERS: Admitting Provider Psychiatry & Neurology Psychiatry; Emergency Provider Emergency Medicine; Visit Provider Social Worker | DX: F33.1 Major depressive disorder, recurrent, moderate (principal); F11.90 Opioid use, unspecified, uncomplicated | CPT/HCPCS: 90792; 99231; 99232; 99239; 99499 ==

== ENCOUNTER 2023-02-23 07:23 | Emergency (ER) | payer OTHER, SELFPAY ==
[2023-02-23 07:26] VITALS: BP 116/71; PULSE 95; RESP 19; TEMP 36.6; O2SAT 98; BMI 37.5
--- NOTE | 2023-02-23 07:32 | ED.PSYCH ---
HPI - Psych General Chief Complaint: Psychiatric Symptoms Stated Complaint: crisis Time Seen by Provider: 02/23/23 07:29 Source: patient Mode of arrival: ambulatory Limitations: no limitations History of Present Illness HPI Narrative: 27-year-old female who presents emergency department for evaluation of suicidal ideation, depression, insomnia with symptoms getting progressively worse over 7 days. The patient told me that she is very tired of living the way she is living. She states that she is feeling suicidal but does not have a specific plan. She states she has a long history of depression her depression is got significantly worse. Patient is using injection heroin and she states she is using daily. She last use 7 days prior. He states that last time she was admitted she was treated with methadone but did not get in a methadone maintenance program when she left because she lost the paperwork. Related Data Previous Rx's Medication Instructions Recorded fluoxetine 40 mg capsule 40 mg PO DAILY #30 caps 02/15/23 gabapentin 300 mg capsule 300 mg PO BID #60 caps 02/15/23 ibuprofen 800 mg tablet 800 mg PO Q6H PRN Pain, Mild (Pain 02/15/23 Scale 1-3) #15 tabs methadone 10 mg/mL oral 60 mg (6 mL) PO DAILY #0 mL 02/15/23 concentrate (Methadose) nicotine (polacrilex) 2 mg buccal 2 mg buccal Q2H PRN Nicotine 02/15/23 lozenge Cravings #30 ea quetiapine 100 mg tablet 100 mg PO DAILY #30 tabs 02/15/23 quetiapine 200 mg tablet 200 mg PO BEDTIME #30 tabs 02/15/23 quetiapine 50 mg tablet 50 mg PO TID PRN severe anxiety 02/15/23 #90 tabs sennosides 8.6 mg-docusate sodium 1 tab PO BID #60 tabs 02/15/23 50 mg tablet (Senna Plus) trazodone 50 mg tablet 50 mg PO BEDTIME PRN Insomnia #30 02/15/23 tabs Allergies Allergy/AdvReac Type Severity Reaction Status Date / Time Penicillins [PENICILLINS] Allergy Unknown THROAT Verified 02/23/23 07:26 CLOSES haloperidol AdvReac Severe pharingeal Verified 02/23/23 07:26 dystonia Review of Systems Review of Systems: Yes all other systems are reviewed and are negative [facility] Past Medical History [facility] Narrative: Past medical history: Hepatitis-C, asthma, depression, substance use disorder-opiates. Medical History (Updated 02/23/23 @ 18:03 by Nemesio Remy MD) Opioid use disorder Drug-induced psychotic disorder Asthma Social History Social History Household Members: None Household Members Other:: Had roommate, moved out, lived in tent for @1 wk, went to detox. Housing: Homeless Do you presently have visiting nurse or other home services: No Alcohol intake: never Patient Tobacco Use Status: Current everyday Tobacco user Tobacco use type: Cigarette Cigarette Packs Per Day: 0.5 Cigarettes Per Day: 10.0 Smoked in Last 30 Days: Yes e-Cigarette/Vaping Use: Currently Using Second Hand Smoke Exposure: Yes Use of substances other than those prescribed or required for medical reasons: Yes Substance Use Type: Heroin Substance Use Frequency: Chronic Longstanding Last Used Substance: Hours (ago) Advance Directives: Yes Advance Directives on File: Yes Advance Directives Date on File: 03/05/22 Patient : No service: No Sexual orientation: Don't Know Physical Exam Vital Signs: Vital Signs: Last Vital Signs Temp 97.6 F 02/23/23 13:31 Pulse 88 02/23/23 13:31 Resp 16 02/23/23 13:31 BP 116/55 L 02/23/23 13:31 Pulse Ox 95 02/23/23 13:31 O2 Del Method Room Air 02/23/23 13:31 BMI result Body Mass Index 37.5 Vital signs were normal Exam General: Patient is anxious, she does not want answer questions Head: Normocephalic, atraumatic EENT: PERRL, Lids normal, sclera normal, conjunctiva normal, nose normal , ears normal, throat without erythema or exudates Neck: Supple, no adenopathy, trachea midline and nontender Lung: breath sounds symmetric, no wheezing, rales or rhonchi Chest: symmetric movement, nontender Heart: regular rate and rhythm, normal S1, S2 no murmurs or rubs Abdomen: soft, non-tender, nondistended, normal bowel sounds Back: no vertebral tenderness, no CVAT Extremities: no deformities, moves all extremities symmetrically Skin: no rashes, no lesion, normal color and warmth Neuro: Awake, alert, oriented, normal speech, cranial nerves intact, moves all extremities symmetrically Psych: Pleasant, cooperative Medications Administered Discontinued Medications Generic Name Dose Route Start Last Admin Trade Name Emma PRN Reason Stop Dose Admin Ibuprofen 400 mg 02/23/23 13:55 02/23/23 14:01 Ibuprofen 400 Mg Tablet PO 02/23/23 13:56 400 mg ONCE ONE Administration Methadone HCl 20 mg 02/23/23 14:55 02/23/23 15:02 Methadone Hcl 20 Mg/2 Ml Oral.Conc PO 02/23/23 14:56 20 mg ONCE ONE Administration Medical Decision Making Medical Decision Making [facility] Narrative: 27-year-old female history of depression, opiate use disorder, asthma who presents emergency department for evaluation of suicidal ideation, depression, insomnia with symptoms getting progressively worse over 7 days. Patient stated that she is tired of living but does not have a specific plan and that her depression is getting worse. Patient's vital signs and physical exam were unremarkable. 1757: CMP was normal. My interpretation patient's laboratory evaluation as follows: Trinh low 4400 H&H low 10.9 and 32.7-these values are chronically low. CMP was normal. Urinalysis revealed 3+ blood. Microscopic revealed 6-10 RBCs, 0-5 WBCs, 6-10 squamous cells, 1+ bacteria-this is a non clean catch specimen does not represent infection . Urine tox screen was positive for opiates, fentanyl, benzos, cocaine. COVID-19 was negative. Patient was seen by the recovery coordinator, Jenelle Acosta recommended starting the patient on methadone 20 mg now and 20 mg daily. 18:00 Start physician observation Patient is medically cleared. Patient will be kept in the emergency department Behavioral Health Unit until she is evaluated by the care team for disposition or until her symptoms improve. At the end of my shift, patient's care was turned over to my colleague, Dr. Land Differential Diagnosis Differential Diagnoses: The differential diagnosis associated with the presentation includes Differential diagnosis includes was not limited to suicidal ideation, depression, anxiety, polysubstance use disorder Admission/Observation Consideration of admission/observation: Escalation of care including admission/observation considered Lab Data [facility] Lab Attestation statement: I reviewed the patient's lab results. See MDM 02/23/23 14:45 02/23/23 14:45 Labs: Lab Results 02/23/23 02/23/23 Range/Units 07:59 14:45 WBC 4.4 L (4.8-10.8) X10*3/uL RBC 4.16 L (4.20-5.50) X10*6/uL Hgb 10.9 L (12.0-16.0) g/dl Hct 32.7 L (37.0-47.0) % MCV 78.6 L (80.0-98.0) fL MCH 26.2 L (27.0-33.0) pg MCHC 33.3 (31.0-35.0) g/dl RDW 13.7 (11.0-16.0) % Plt Count 224 (160-400) X10*3/uL MPV 10.0 (9.4-12.3) fL Immature Gran % (Auto) 0.0 (0.0-0.4) % Neut % (Auto) 52.2 (45-73) % Lymph % (Auto) 32.0 (20-40) % [place] % (Auto) 10.1 (2-11) % Eos % (Auto) 5.0 H (0-4) % Baso % (Auto) 0.7 (0-2) % Lymph # (Auto) 1.4 (1.2-4.9) X10*3/uL [place] # (Auto) 0.4 (0.1-1.2) X10*3/uL Eos # (Auto) 0.2 (0.0-0.4) X10*3/uL Baso # (Auto) 0.0 (0.0-0.2) X10*3/uL Abs Immat Gran (auto) 0.00 (0.00-0.03) X10*3/uL Absolute Neuts (auto) 2.3 (2.0-8.3) x10*3/uL Absolute Nucleated RBC 0.000 (0.0-0.012) X10*3/uL Nucleated RBC % (auto) 0.0 (0.0-0.2) /100WBC Sodium 141 (135-145) mmol/L Potassium 3.5 (3.3-5.1) mmol/L Chloride 105 (96-108) mmol/L Carbon Dioxide 26 (22-29) mmol/L Anion Gap 14 (12-20) BUN 7 L (9-16) mg/dL Creatinine 0.67 (0.5-1.4) mg/dL Estim Creat Clear Calc 141.6 Estimated GFR > 60 Random Glucose 112 (60-115) mg/dL Calcium 9.0 (8.4-10.2) mg/dL Total Bilirubin 0.4 (0.0-1.0) mg/dL AST 22 (5-31) U/L ALT 19 (0-31) U/L Alkaline Phosphatase 98 (39-117) U/L Total Protein 7.3 (6.5-8.0) g/dL Albumin 3.6 (3.5-5.0) g/dL Urine Color Dark Yellow Urine Appearance Clear Urine pH 5.5 (5.0-9.0) Ur Specific Vest 1.025 (1.005-1.025) Urine Protein Trace (Neg-Trace) mg/dL Urine Glucose (UA) Negative (Negative) mg/dL Urine Ketones Negative (Negative) mg/dL Urine Blood Large (3+) H (Negative) Urine Nitrite Negative (Negative) Ur Leukocyte Esterase Negative (Negative) Urine RBC 6-10 H (0-2) /HPF Urine WBC 0-5 (0-5) /HPF Ur Squamous Epith Cells 6-10 (0-2) /HPF Urine Bacteria 1+ (None Seen) Hyaline Casts 0-2 (0-2) /LPF Salicylates < 5.0 L (15-30) mg/dL Urine Opiates Screen POSITIVE H (Not Detect) Urine Fentanyl Screen POSITIVE H (Not Detect) Acetaminophen < 17 (<30) mcg/mL Ur Barbiturates Screen Not Detected (Not Detect) Ur Phencyclidine Scrn Not Detected (Not Detect) Ur Amphetamines Screen Not Detected (Not Detect) U Benzodiazepines Scrn POSITIVE H (Not Detect) Urine Cocaine Screen POSITIVE H (Not Detect) U Marijuana (THC) Screen Not Detected (Not Detect) Ethyl Alcohol < 10 mg/dL Prescription Management I considered prescription management with: Other (Depression, polysubstance use disorder) Discharge Plan Discharge Clinical Impression: Depression with suicidal ideation, Polysubstance (excluding opioids) dependence Patient Disposition: Still a Patient Prescriptions: No Action nicotine (polacrilex) 2 mg Lozenge 2 mg buccal Q2H PRN (Reason: Nicotine Cravings) Qty: 30 0RF fluoxetine 40 mg capsule 40 mg PO DAILY Qty: 30 0RF trazodone 50 mg Tablet 50 mg PO BEDTIME PRN (Reason: Insomnia) Qty: 30 0RF ibuprofen 800 mg Tablet 800 mg PO Q6H PRN (Reason: Pain, Mild (Pain Scale 1-3)) Qty: 15 0RF sennosides-docusate sodium [Senna Plus] 8.6-50 mg Tablet 1 tab PO BID Qty: 60 0RF quetiapine 200 mg Tablet 200 mg PO BEDTIME Qty: 30 0RF quetiapine 100 mg Tablet 100 mg PO DAILY Qty: 30 0RF gabapentin 300 mg Capsule 300 mg PO BID Qty: 60 0RF methadone [Methadose] 10 mg/mL Concentrate 60 mg PO DAILY Qty: 0 0RF Rx Instructions: Partial Fill upon patient request. quetiapine 50 mg Tablet 50 mg PO TID PRN (Reason: severe anxiety) Qty: 90 0RF Interventions: Lares-Suicide Risk Severity Scale Last Done: 02/23/23 17:57
--- NOTE | 2023-02-23 07:40 | PC.NURSE ---
pt currently being seen by provider. pt report SI/HI and heroin use. pt states that she has needles on her but does not know where they are. security called/notified/aware. 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 1:1 sitter present.
--- NOTE | 2023-02-23 08:01 | PC.NURSE ---
urine obtained and sent to lab by [employer].
--- NOTE | 2023-02-23 08:21 | PC.NURSE ---
pt states that she is SI/HI at this time but is refusing to speak w/ this RN about specific details. pt states she already spoke w/ provider and does not want to speak w/ me. pt states last heroin/coke use was 6 hours ago. pt states she used $20 coke and a 1/2 bundle of heroin 6 hours ago. COWS = 11 - will notify Dr. Remy. pt increasingly fidgety/agitated at this time. pt c/o 11/26 bilateral foot pain - states that she has been walking around barefoot/with flip flops on. does not want this RN to assess her feet. 1:1 sitter present.
--- NOTE | 2023-02-23 08:35 | PC.NURSE ---
belongings pt belongings obtained by security and in decon.
--- NOTE | 2023-02-23 08:43 | PC.NURSE ---
pt currently sleeping at this time in no apparent distress. respirations even and unlabored. 1:1 sitter present.
--- NOTE | 2023-02-23 10:28 | PC.NURSE ---
pt continues to sleep at this time in no apparent distress. respirations even and unlabored. 1:1 sitter present.
[2023-02-23 13:31] VITALS: BP 116/55; PULSE 88; RESP 16; TEMP 36.4; O2SAT 95
--- NOTE | 2023-02-23 13:32 | PC.NURSE ---
pt now awake at this time. updated CIWA = 4. pt requesting to speak w/ someone about being started on methadone treatment. will reach out to recovery team. pt still does not want to speak to this RN about SI/HI thoughts. 1:1 sitter present.
--- NOTE | 2023-02-23 13:41 | PC.NURSE ---
reached out to JERICA donis about pt requesting methadone treatment.
--- NOTE | 2023-02-23 14:02 | PC.NURSE ---
pt medicated per provider order. will be giving report to pod shortly.
--- NOTE | 2023-02-23 14:14 | PC.NURSE ---
pt currently speaking w/ rn john donis about methadone treatment plan at this time.
--- NOTE | 2023-02-23 14:48 | MHC.RECOVRN ---
Pt requesting to speak with recovery per ED RN. T/w met with pt to discuss treatment, pt endorsing depression at this time, awaiting crisis eval. Pt states she was d/c last week and has been using 1-2 bundles a day. Pt reports her last use was approx 7 hours [facility] to the hospital. Endorsing feelings of hot/cold, sweating, and stomach ache Pt reports she was d/c last week and that she was set up with [facility] but lost her last dose letter. Discussed pt with Dr. Remy, pt to receive 20mg MTD. Care team aware that there are no detox beds today, dispo plan ongoing at this time.
--- NOTE | 2023-02-23 19:36 | PM.EVENT ---
Event Note Date of Service: 02/23/23 Event Note: Addiction note: Chart reviewed, patient known to this policy writer. Seen by automatic buffing wheel former earlier and restarted on methadone Dose prior to discharge one week ago was 55mg Plan: Methadone PRN doses entered Methadone increased to 50mg in AM Time Spent With Patient Time: Total time managing care of this patient today ____ minutes.
[2023-02-23 20:35] VITALS: BP 127/67; PULSE 75; RESP 16; TEMP 36.1; O2SAT 95
[2023-02-24 04:08] VITALS: BP 147/87; PULSE 69; RESP 17; TEMP 36.6; O2SAT 98
--- NOTE | 2023-02-24 07:06 | PC.NURSE ---
Patient slept through the night, no distress observed/reported, behavior non concerning, med rec completed/pending provider's approval, disposition per care team is detox bed search, recovery team will coordinate the bed search, asymptomatic of withdrawal, VSS, labs completed/resulted, will continue to monitor.
--- NOTE | 2023-02-24 10:00 | PC.NURSE ---
Patient moved to 6hall, calm and cooperative, denies pain or discomfort. Awaiting detox bed
--- NOTE | 2023-02-24 11:00 | PC.NURSE ---
Resting comfortably, breathing even and unlabored
[2023-02-24 12:13] VITALS: BP 107/58; PULSE 74; RESP 15; TEMP 36.1; O2SAT 98
--- NOTE | 2023-02-24 13:02 | MHC.RECOVRN ---
Addendum entered by Sabrina Cabrera RN 02/24/23 16:22: Detox bedsearch exhausted, pt denied at [facility] due to needing higher level of care. Reviewed findings with pt, reviewed addiction/recovery supports, pt to follow up with [facility] from the community. Pt verbalized understanding. ED Provider notified. Original Note: This writer editor met with patient after patient cleared by Care Team. Pt requesting detox bedsearch. Reviewed detox bedsearch process, barriers to level of treatment i.e. closures. Pt verbalized understanding. No female detox beds [facility], [facility], [facility], [facility], [facility], [facility]. T/W lvm at [place], no response. ATS referral sent to [facility] [place], which states possible female ATS bed open this afternoon. Reviewed with patient. Patient verbalized understanding. T/W awaiting to hear back from [place].
== END 2023-02-24 18:37 | disposition home or self-care (01) ==
PROVIDERS: Emergency Provider Emergency Medicine Emergency Medical Services
DX: F32.3 Major depressive disorder, single episode, severe with psychotic features (principal); R45.851 Suicidal ideations; F19.24 Other psychoactive substance dependence with psychoactive substance-induced mood disorder; G47.00 Insomnia, unspecified; F11.20 Opioid dependence, uncomplicated; Z79.899 Other long term (current) drug therapy
CPT/HCPCS: 36415; 80053; 80143; 80179; 80307; 81001; 85025; 93005; 99285; S9485

== ENCOUNTER 2023-03-02 21:26 | Inpatient (IN) | payer OTHER, SELFPAY ==
--- NOTE | ~2023-03-02 | XR_ITS ---
EXAMINATION: LEFT ANKLE LEFT FOOT CLINICAL INFORMATION: Fall. Pain. Edema. COMPARISON: None. TECHNIQUE: 2 views of the left ankle 3 views left foot FINDINGS: Left ankle: The mortise is maintained. No acute fracture. The talar dome appears smooth and intact. No evidence of ankle fluid. Left foot: No acute fracture or subluxation. Soft tissue swelling over the dorsum of the midfoot. The area of clinical concern appears to be the dorsum of the midfoot. On equivocal lucency through the distal fifth proximal phalanx is likely artifactual XR/XR foot LT 2V IMPRESSION: No acute fracture or subluxation
--- NOTE | ~2023-03-02 | XR_ITS ---
EXAMINATION: LEFT ANKLE LEFT FOOT CLINICAL INFORMATION: Fall. Pain. Edema. COMPARISON: None. TECHNIQUE: 2 views of the left ankle 3 views left foot FINDINGS: Left ankle: The mortise is maintained. No acute fracture. The talar dome appears smooth and intact. No evidence of ankle fluid. Left foot: No acute fracture or subluxation. Soft tissue swelling over the dorsum of the midfoot. The area of clinical concern appears to be the dorsum of the midfoot. On equivocal lucency through the distal fifth proximal phalanx is likely artifactual XR/XR ankle LT 2V IMPRESSION: No acute fracture or subluxation
[2023-03-02 21:37] VITALS: BP 131/90; PULSE 109; RESP 20; TEMP 36.6; O2SAT 96; BMI 36.5
--- NOTE | 2023-03-02 22:37 | MHC.EDTECH ---
ALL BELONGINGS ARE LOCK IN DECON
--- NOTE | 2023-03-02 22:45 | ED_ITS ---
HPI - General Adult General Chief complaint: Psychiatric Symptoms Stated complaint: Crisis Time Seen by Provider: 03/02/23 22:44 Source: patient Mode of arrival: ambulatory Limitations: no limitations History of Present Illness HPI narrative: Patient is a 27 year old assigned female at with a history of MDD and opiate use disorder presenting to the emergency department today with suicidal ideation. Patient states that she no longer wants to live and hates what her addiction has done to her. Patient denies any dizziness, lightheadedness, abdominal pain, nausea, vomiting, fever, chills, blurry vision, double vision, loss of vision, chest pain, difficulty breathing, shortness of breath, back pain, night sweats, pain with urination, increased urinary frequency, increased urinary urgency, blood in her urine or stool, syncope or a near syncopal episode, recent trauma or falls, bowel incontinence, bladder incontinence, bowel retention, bladder retention, or any other complaints at this time. Relieving factors: none Exacerbating factors: none Associated symptoms: denies other symptoms Treatments prior to arrival: none Related Data Home Medications Medication Instructions Recorded Confirmed No Known Home Meds 03/02/23 03/02/23 Allergies Allergy/AdvReac Type Severity Reaction Status Date / Time Penicillins [PENICILLINS] Allergy Unknown THROAT Verified 02/23/23 07:26 CLOSES haloperidol AdvReac Severe pharingeal Verified 02/23/23 07:26 dystonia Review of Systems 2 Constitutional: Constitutional: Reports no additional constitutional complaints, Denies chills, Denies fever(s) and Denies night sweats Eyes: Eyes: Reports no additional eye complaints, Denies blurry vision, Denies change in vision, Denies diplopia, Denies eye discharge, Denies loss of vision and Denies eye pain ENT: Denies dizziness Cardiovascular: Cardiovascular: Reports no additional cardiovascular complaints, Denies chest pain, Denies lightheadedness, Denies Loss of Consciousness and Denies dyspnea Respiratory: Respiratory: Reports no additional respiratory complaints and Denies dyspnea Gastrointestinal: Gastrointestinal: Reports no additional gastrointestinal complaints, Denies abdominal pain, Denies melena, Denies hematochezia, Denies change in bowel habits and Denies change in stool character Genitourinary: Genitourinary: Denies hematuria, Denies urinary frequency, Denies dysuria, Denies urinary incontinence, Denies urinary hesitancy and Denies urinary urgency Musculoskeletal: Musculoskeletal: Reports no additional musculoskeletal complaints, Denies numbness and Denies tingling Neurologic: Denies dizziness, Denies loss of vision, Denies numbness and Denies tingling Psychiatric: Psychiatric: Reports suicidal ideation Endocrine: Endocrine: Reports no additional endocrine complaints Hematologic/Lymphatic: Hematologic/Lymphatic: Reports no additional hematologic/lymphatic complaints Allergic/Immunologic: Allergic/Immunologic: Reports no additional allergic/immunologic complaints PMFSH Past Medical History Attestation statement: The following information was validated with the patient. Source: old records reviewed and nursing notes reviewed Medical History (Updated 03/03/23 @ 01:27 by ANTONINO Cooper) Opioid use disorder Drug-induced psychotic disorder Asthma Social History Social History Household Members: None Household Members Other:: Had roommate, moved out, lived in tent for @1 wk, went to detox. Housing: Homeless Do you presently have visiting nurse or other home services: No Alcohol intake: never Patient Tobacco Use Status: Current everyday Tobacco user Tobacco use type: Cigarette Cigarette Packs Per Day: 0.5 Cigarettes Per Day: 10.0 e-Cigarette/Vaping Use: Currently Using Second Hand Smoke Exposure: Yes Substance Use Type: Heroin Advance Directives: Yes Advance Directives Information Provided: No Advance Directives on File: No Advance Directives Date on File: 03/05/22 service: No Sexual orientation: Don't Know Physical Exam ED Vital Signs: Vital Signs - 24 hr 03/02/23 21:37 Temperature 97.9 F Pulse Rate 109 H Respiratory Rate 20 Blood Pressure 131/90 H Pulse Oximetry 96 Oxygen Delivery Method Room Air BMI result Body Mass Index 36.5 Const General: cooperative, no acute distress, alert and awake Nutritional Appearance: well nourished Orientation/consciousness: patient oriented x3 Limitations: no limitations HENMT Head: Yes normal to inspection and Yes atraumatic Ears: hearing grossly normal bilaterally and external ears normal General nose exam: Normal external nose present, no nasal discharge noted and no epistaxis Face and sinus: Yes normal facial exam, No abrasion and No laceration Mouth: Normal oral and palatal mucosa present, no drooling and no muffled voice Eyes General: appearance normal, both eyes and all related structures Periorbital: periorbital findings normal Eyelids: Yes eyelids normal Conjunctivae: conjunctivae normal Pupils: Equal, round and reactive pupils present EOM: EOMs intact bilaterally Neck Neck: Yes normal visual inspection, Yes full ROM and Yes no lymphadenopathy Chest Chest palpation & inspection: normal inspection of the chest Resp Effort & Inspection: normal respiratory effort and able to speak in complete sentences GI Inspection: Yes normal to inspection Neuro General: patient oriented x3 and moves all extremities Cranial nerves: Yes Equal, round and reactive pupils present Cognition (Neuro): normal cognition Motor exam (neuro): 5/5 motor strength present throughout Sensory Exam: Normal double simultaneous stimulation for sensation Coordination: [id number] test normal Extrem General: Yes normal to inspection, Yes full ROM and Yes capillary refill normal Psych Appearance: grossly normal Mental Status: mental status grossly normal Affect: Sad affect present Attitude: cooperative Thought process: Normal thought process present Thought content: Suicidality present Insight: Good insight present (Psych) Medications Administered Discontinued Medications Generic Name Dose Route Start Last Admin Trade Name Freq PRN Reason Stop Dose Admin Lorazepam 2 mg 03/02/23 22:45 03/02/23 23:30 Lorazepam 1 Mg Tablet PO 03/02/23 22:46 2 mg ONCE ONE Administration Medical Decision Making Medical Decision Making [facility] Narrative: Patient is a 27 year old assigned female at with a history of MDD and opioid use disorder presenting to the emergency department today with suicidal ideation. Patient's physical exam was as noted in the physical exam portion of this chart. Patient's blood work was unremarkable. Patient's urine shows a possible urinary tract infection however, it was not a clean catch. Will await culture before beginning treatment. I explained my physical exam findings as well as all test results to the patient. I answered all questions asked by the patient. Patient is currently awaiting CARE team evaluation. Differential Diagnosis Differential Diagnoses: The differential diagnosis associated with the presentation includes Suicidal ideation Opiate abuse Lab Data [facility] Lab Attestation statement: I reviewed the patient's lab results. My interpretation of these studies and their corresponding values is that they are grossly normal. 03/02/23 23:02 03/02/23 23:02 Labs: Lab Results 03/02/23 03/02/23 Range/Units 22:43 23:02 WBC 4.1 L (4.8-10.8) X10*3/uL RBC 4.09 L (4.20-5.50) X10*6/uL Hgb 10.5 L (12.0-16.0) g/dl Hct 31.8 L (37.0-47.0) % MCV 77.8 L (80.0-98.0) fL MCH 25.7 L (27.0-33.0) pg MCHC 33.0 (31.0-35.0) g/dl RDW 13.8 (11.0-16.0) % Plt Count 190 (160-400) X10*3/uL MPV 10.0 (9.4-12.3) fL Immature Gran % (Auto) 0.2 (0.0-0.4) % Neut % (Auto) 70.3 (45-73) % Lymph % (Auto) 19.8 L (20-40) % [place] % (Auto) 7.3 (2-11) % Eos % (Auto) 1.7 (0-4) % Baso % (Auto) 0.7 (0-2) % Lymph # (Auto) 0.8 L (1.2-4.9) X10*3/uL [place] # (Auto) 0.3 (0.1-1.2) X10*3/uL Eos # (Auto) 0.1 (0.0-0.4) X10*3/uL Baso # (Auto) 0.0 (0.0-0.2) X10*3/uL Abs Immat Gran (auto) 0.01 (0.00-0.03) X10*3/uL Absolute Neuts (auto) 2.9 (2.0-8.3) x10*3/uL Absolute Nucleated RBC 0.000 (0.0-0.012) X10*3/uL Nucleated RBC % (auto) 0.0 (0.0-0.2) /100WBC Sodium 138 (135-145) mmol/L Potassium 3.6 (3.3-5.1) mmol/L Chloride 101 (96-108) mmol/L Carbon Dioxide 25 (22-29) mmol/L Anion Gap 16 (12-20) BUN 4 L (9-16) mg/dL Creatinine 0.62 (0.5-1.4) mg/dL Estim Creat Clear Calc 150.9 Estimated GFR > 60 Random Glucose 103 (60-115) mg/dL Calcium 9.3 (8.4-10.2) mg/dL Total Bilirubin 0.5 (0.0-1.0) mg/dL AST 30 (5-31) U/L ALT 22 (0-31) U/L Alkaline Phosphatase 100 (39-117) U/L Total Protein 8.0 (6.5-8.0) g/dL Albumin 4.0 (3.5-5.0) g/dL Urine Color Yellow Urine Appearance Clear Urine pH 6.0 (5.0-9.0) Ur Specific Wilber 1.010 (1.005-1.025) Urine Protein Negative (Neg-Trace) mg/dL Urine Glucose (UA) Negative (Negative) mg/dL Urine Ketones 15 (Negative) mg/dL Urine Blood Moderate (2+) H (Negative) Urine Nitrite Negative (Negative) Ur Leukocyte Esterase Negative (Negative) Urine RBC 6-10 H (0-2) /HPF Urine WBC 0-5 (0-5) /HPF Ur Squamous Epith Cells 11-20 (0-2) /HPF Urine Bacteria 2+ (None Seen) Hyaline Casts 0-2 (0-2) /LPF Urine Test NEGATIVE (NEGATIVE) Urine Opiates Screen POSITIVE H (Not Detect) Urine Fentanyl Screen POSITIVE H (Not Detect) Ur Barbiturates Screen Not Detected (Not Detect) Ur Phencyclidine Scrn Not Detected (Not Detect) Ur Amphetamines Screen Not Detected (Not Detect) U Benzodiazepines Scrn Not Detected (Not Detect) Urine Cocaine Screen POSITIVE H (Not Detect) U Marijuana (THC) Screen Not Detected (Not Detect) Ethyl Alcohol < 10 mg/dL Critical Care Time Critical Care Time Critical Care Time: Yes Total Critical Care Time: 40 Attestation: I spent 40 minutes of Critical Care Time with this patient. This does not include time spent on separately reported billable procedures. Discharge Plan Discharge Clinical Impression: Suicidal ideation Patient Disposition: Still a Patient Prescriptions: No Action No Known Home Meds Rx Instructions: patient reported she is off her medication for over a month Interventions: [place]-Suicide Risk Severity Scale Last Done: 03/02/23 22:46
[2023-03-02 22:53] LABS: UPreg QC Valid YES; Urine Pregnancy NEGATIVE (NEGATIVE)
[2023-03-02 22:56] LABS: Appearance Urine Clear; Color Urine Yellow; Glucose Urine UA Negative (Negative); Leukocyte Esterase Urine Negative (Negative); Nitrite Urine Negative (Negative); UMIC TRIGGER UACC YES; Urine Blood Moderate (2+) (Negative); Urine Ketones 15 mg/dL (Negative); Urine Protein Negative (Neg-Trace)
[2023-03-02 22:57] LABS: Bacteria Urine 2+ (None Seen); Hyaline Casts Urine 0-2 /LPF (0-2); WBC Urine 0-5 /HPF (0-5)
[2023-03-02 22:59] LABS: Amphetamine Screen Urine Not Detected (Not Detect); Barbiturates, Urine Not Detected (Not Detect); Benzodiazepines Screen Urine Not Detected (Not Detect); Cannabinoid Screen Urine Not Detected (Not Detect); Cocaine Screen Urine POSITIVE (Not Detect); Fentanyl, urine POSITIVE (Not Detect); Opiate Screen Urine POSITIVE (Not Detect); Phencyclidine Screen Urine Not Detected (Not Detect)
[2023-03-02 23:08] LABS: MANUAL DIFF FLAG NO
[2023-03-02 23:09] LABS: Basophils Percent Auto 0.7 % (0-2); Eosinophils Absolute Auto 0.1 X10*3/uL (0.0-0.4); Eosinophils Percent Auto 1.7 % (0-4); Hematocrit 31.8 % (37.0-47.0); Hemoglobin 10.5 g/dl (12.0-16.0); Imm Gran Abs Auto 0.01 X10*3/uL (0.00-0.03); Imm Gran Pct Auto 0.2 % (0.0-0.4); Lymphocytes Absolute Auto 0.8 X10*3/uL (1.2-4.9); Lymphocytes Percent Auto 19.8 % (20-40); Mean Corpuscular Hemoglobin 25.7 pg (27.0-33.0); Mean Corpuscular Volume 77.8 fL (80.0-98.0); Monocytes Absolute Auto 0.3 X10*3/uL (0.1-1.2); Monocytes Percent Auto 7.3 % (2-11); Neutrophils Absolute Auto 2.9 x10*3/uL (2.0-8.3); Neutrophils Percent Auto 70.3 % (45-73); Platelet Count 190 X10*3/uL (160-400); Red Blood Count 4.09 X10*6/uL (4.20-5.50); Red Cell Distribution Width 13.8 % (11.0-16.0); White Blood Count 4.1 X10*3/uL (4.8-10.8)
[2023-03-02 23:25] LABS: Alanine Aminotransferase 22 U/L (0-31); Alkaline Phosphatase 100 U/L (39-117); Anion Gap 16 (12-20); Aspartate Amino Transferase 30 U/L (5-31); Bilirubin Total 0.5 mg/dL (0.0-1.0); Blood Urea Nitrogen 4 mg/dL (9-16); Calcium 9.3 mg/dL (8.4-10.2); Carbon Dioxide 25 mmol/L (22-29); Chloride 101 mmol/L (96-108); Creatinine Clr Calc Pharmacy 150.9; Estimated Glomerular Filt Rate > 60; Ethanol < 10 mg/dL; Glucose Random 103 mg/dL (60-115); Potassium 3.6 mmol/L (3.3-5.1); Sodium 138 mmol/L (135-145)
[2023-03-02] MEDS: LORazepam 1 MG TABLET 2 MG PO (23:30)
--- NOTE | 2023-03-03 06:14 | PC.NURSE ---
Patient slept through the night, no distress observed/reported, Ativan 2 mg PO administered at 2330 with + effect, behavior non concerning, care consult ordered/pending evaluation, labs completed/resulted/reviewed by provider, med rec completed/currently off her medication as reported by the patient, VSS, will continue to monitor.
[2023-03-03 06:58] VITALS: BP 116/56; PULSE 93; RESP 16; TEMP 36.8; O2SAT 95
[2023-03-03] MEDS: hydrOXYzine HCL 50 MG TABLET PO ×2 (08:18→19:56)
[2023-03-03] MEDS: Ibuprofen 600 MG TABLET PO ×2 (08:18→19:50)
[2023-03-03 10:40] VITALS: BP 112/54; PULSE 99; RESP 16; TEMP 36.8
[2023-03-03 14:49] VITALS: RESP 16
--- NOTE | 2023-03-03 17:00 | PC.NURSE ---
Abby was in bed resting for most of today. Verbalized she was feeling sick and hydroxyzine 50mg and Ibuprofen 600mg given for withdrawal symptoms with positive effect. Abby denies current SI but does verbalize feeling hopeless about how I'm living . Appetite good. No self care or ADL's attended to. Shower offered but refused. Denies HI/AVH. No behavioral concerns.
--- NOTE | 2023-03-03 19:23 | PC.NURSE ---
patient resting at present time on couch in rear of pod, periodically coughing, patient remains in behavioral control and able to let her needs be known at present. appears in no distress
[2023-03-03 19:38] VITALS: BP 116/75; PULSE 94; RESP 16; TEMP 36.7; O2SAT 95
[2023-03-03] MEDS: Ondansetron ODT 4 MG TAB.RAPDIS TRANSLINGU (19:56)
--- NOTE | 2023-03-04 | ECG_ITS ---
Test Reason : BED SEARCH Blood Pressure : / mmHG Vent. Rate : 070 BPM Atrial Rate : 070 BPM P-R Int : 138 ms QRS Dur : 086 ms QT Int : 400 ms P-R-T Axes : 022 024 029 degrees QTc Int : 432 ms Normal sinus rhythm RSR' or QR pattern in V1 suggests right ventricular conduction delay Nonspecific T wave abnormality Inferior leads Abnormal ECG When compared with ECG of 23-FEB-2023 14:47, No significant change was found Referred By: Lin Lane Electronically Signed By:MARIELENA PARKS MD
[2023-03-04 06:12] VITALS: RESP 16
[2023-03-04] MEDS: hydrOXYzine HCL 50 MG TABLET PO ×3 (08:55→17:17)
--- NOTE | 2023-03-04 09:06 | PC.NURSE ---
Patient reporting feeling dope sick, requesting does of methadone. Patient reports does not have a clinic that she usually gets methadone from but in the past has received doses of methadone in the ER to help her feel better. Provider notified. Ambualting on unit, gait steady. Provided with personal hygiene items at patients request.
[2023-03-04] MEDS: methADONE HCl 20 MG/2 ML ORAL.CONC 40 MG PO (09:36)
--- NOTE | 2023-03-04 11:30 | PC.NURSE ---
Calm and cooperative, continues to endorse thoughts of SI. Denies HI. Medicated per mar with methadone with good effect. Resting comfortably in bed, breathing even and unlabored. Preference is to rest in bed with blanket over head.
--- NOTE | 2023-03-04 17:17 | PC.NURSE ---
Calm and cooperative, po med per mar, denies pain or discomfort
[2023-03-04 19:48] VITALS: BP 131/85; PULSE 81; RESP 18; TEMP 36.3; O2SAT 95
[2023-03-05 00:05] LABS: COVID-19 Test Negative (Negative); IDNOW Serial# 6674DD1D
[2023-03-05 05:27] VITALS: BP 125/80; PULSE 68; RESP 16; TEMP 36.1; O2SAT 97
--- NOTE | 2023-03-05 06:18 | PC.NURSE ---
Patient slept through the night, no distress observed/reported, disposition per care team is section 12 inpatient bed search, medication compliant, behavior non concerning, labs completed/resulted, will continue to monitor.
[2023-03-05] MEDS: methADONE HCl 20 MG/2 ML ORAL.CONC 40 MG PO (08:36)
[2023-03-05] MEDS: hydrOXYzine HCL 50 MG TABLET PO ×4 (08:36→20:43)
--- NOTE | 2023-03-05 10:26 | PC.NURSE ---
40mg Methadone given at 0836, Daily order entered for while Abby is in the hospital. Appetite is good. Abby took a shower and has been resting in her room. No behavioral concerns.
[2023-03-05 12:42] VITALS: BP 124/81; PULSE 64; RESP 15; TEMP 36.3; O2SAT 98
[2023-03-05 16:05] VITALS: RESP 18
[2023-03-05 16:38] VITALS: BP 126/80; PULSE 65; RESP 20; TEMP 36.9; O2SAT 98
[2023-03-05] MEDS: Acetaminophen 325 MG TABLET 650 MG PO (16:53)
[2023-03-05 18:00] VITALS: BP 120/74; PULSE 68; RESP 16; TEMP 36.5; O2SAT 98
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
[2023-03-05] MEDS: Ibuprofen 400 MG TABLET PO (18:57)
[2023-03-05] MEDS: Nicotine Polacrilex Lozenge 4 MG LOZENGE BUCCAL (18:57)
[2023-03-05] MEDS: cloNIDine HCL 0.1 MG TABLET PO (18:57)
[2023-03-05 19:05] VITALS: BP 112/72; PULSE 77
[2023-03-05] MEDS: traZODone HCL 50 MG TABLET PO (20:42)
[2023-03-05] MEDS: Mirtazapine 7.5 MG TABLET PO (20:43)
[2023-03-05] MEDS: Benztropine Mesylate 0.5 MG TABLET PO (20:43)
[2023-03-05] MEDS: QUEtiapine Fumarate 50 MG TABLET PO (20:43)
[2023-03-05] MEDS: Topiramate 25 MG TABLET PO (20:43)
[2023-03-06 08:19] VITALS: BP 128/77; PULSE 68; RESP 18; TEMP 36.2; O2SAT 98
[2023-03-06] MEDS: FLUoxetine HCl 20 MG CAPSULE PO (08:21)
[2023-03-06] MEDS: hydrOXYzine HCL 50 MG TABLET PO ×4 (08:21→20:13)
[2023-03-06] MEDS: Topiramate 25 MG TABLET PO ×2 (08:21→20:13)
[2023-03-06] MEDS: Ascorbic Acid 250 MG TABLET PO (08:21)
[2023-03-06] MEDS: Nicotine 21 MG PATCH.TD24 TRANSDERMA (08:22)
[2023-03-06] MEDS: Multivitamin TABLET 1 TAB PO (08:22)
[2023-03-06] MEDS: methADONE HCl 20 MG/2 ML ORAL.CONC 40 MG PO (08:23)
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
[2023-03-06 12:15] VITALS: BP 130/61; RESP 18
[2023-03-06] MEDS: Ondansetron ODT 4 MG TAB.RAPDIS TRANSLINGU ×2 (12:21→18:11)
[2023-03-06] MEDS: Ibuprofen 400 MG TABLET PO (12:26)
[2023-03-06] MEDS: cloNIDine HCL 0.1 MG TABLET PO ×2 (12:26→20:12)
[2023-03-06] MEDS: Nicotine Polacrilex Lozenge 4 MG LOZENGE BUCCAL ×3 (12:26→23:22)
[2023-03-06 16:00] VITALS: PULSE 72
[2023-03-06] MEDS: Dicyclomine HCl 10 MG CAPSULE PO (16:34)
[2023-03-06] MEDS: Acetaminophen 325 MG TABLET 650 MG PO (16:35)
[2023-03-06] MEDS: Ibuprofen 800 MG TABLET PO (18:11)
[2023-03-06 19:50] VITALS: BP 127/59; PULSE 56; TEMP 36.3; O2SAT 99
[2023-03-06] MEDS: Mirtazapine 7.5 MG TABLET PO (20:12)
[2023-03-06] MEDS: QUEtiapine Fumarate 50 MG TABLET PO (20:13)
[2023-03-06] MEDS: Benztropine Mesylate 0.5 MG TABLET PO (20:13)
[2023-03-06] MEDS: LORazepam 1 MG TABLET PO (20:13)
[2023-03-06] MEDS: traZODone HCL 50 MG TABLET PO (23:22)
[2023-03-07 07:00] VITALS: BMI 35.8
[2023-03-07 08:17] VITALS: BP 121/62; PULSE 74; RESP 18; TEMP 36.2; O2SAT 99
[2023-03-07] MEDS: Multivitamin TABLET 1 TAB PO (08:19)
[2023-03-07] MEDS: Nicotine 21 MG PATCH.TD24 TRANSDERMA (08:19)
[2023-03-07] MEDS: Topiramate 25 MG TABLET PO ×2 (08:20→20:19)
[2023-03-07] MEDS: FLUoxetine HCl 20 MG CAPSULE PO (08:20)
[2023-03-07] MEDS: Ascorbic Acid 250 MG TABLET PO (08:20)
[2023-03-07] MEDS: hydrOXYzine HCL 50 MG TABLET PO ×4 (08:20→20:19)
[2023-03-07] MEDS: methADONE HCl 20 MG/2 ML ORAL.CONC 50 MG PO (08:21)
[2023-03-07] MEDS: Nicotine Polacrilex Lozenge 4 MG LOZENGE BUCCAL ×3 (09:08→19:20)
[2023-03-07] MEDS: Ondansetron ODT 4 MG TAB.RAPDIS TRANSLINGU (09:08)
[2023-03-07 13:20] VITALS: BP 101/58; PULSE 72; RESP 18
[2023-03-07] MEDS: cloNIDine HCL 0.1 MG TABLET PO ×2 (13:25→22:55)
[2023-03-07] MEDS: Acetaminophen 325 MG TABLET 650 MG PO (13:26)
--- NOTE | 2023-03-07 15:27 | P.PNPSI_ITS ---
Subjective Subjective Date of Service: 03/07/23 Reason For Visit: si Interim History: c/o pins and needles in her body, feeling cloudy-minded and clammy. stomach pain. feeling better than yesterday. would like to wait on STI testing. per staff, safe on unit. CIWA and COWS low during days, CIWA 9 eves. COWS 8 eves. CIWA/COWS 5-6 this morning, scoring for subjective criteria. Mental Status Exam Mental Status Exam Narrative: dressed in hospital [place]on[place], disheveled. cooperative. no PMA/PMR. speech nml rate, decr amount, nml loudness, flattened tone, nml latency. thoughts linear and logical with no evident delusions or paranoia. affect constricted, normo- intense, non-labile. no SI/HI/AVH expressed. Diagnostics Vital Signs (24Hr): Vital Signs - 24 hr 03/06/23 19:50 03/07/23 08:17 03/07/23 13:20 Temperature 97.4 F 97.2 F Pulse Rate 56 74 72 Respiratory Rate 18 18 Blood Pressure 127/59 L 121/62 101/58 L Pulse Oximetry 99 99 Oxygen Delivery Method Room Air Room Air BMI result Body Mass Index 35.8 Labs 03/02/23 23:02 03/02/23 23:02 Medications Medications Current Medications Acetaminophen (Acetaminophen 325 Mg Tablet) 650 mg PO Q6H PRN PRN Reason: Headache/Pain Mild Scale (1-3) Last Admin: 03/07/23 13:26 Dose: 650 mg Al Hydroxide/Mg Hydroxide (Magnesium Hydrox/Alum Hydrox 30 Ml Oral.Susp) 30 ml PO Q6H PRN PRN Reason: Heartburn/Nausea Ascorbic Acid (Ascorbic Acid 250 Mg Tablet) 250 mg PO DAILY [facility] Last Admin: 03/07/23 08:20 Dose: 250 mg Benztropine Mesylate (Benztropine Mesylate 0.5 Mg Tablet) 0.5 mg PO BEDTIME JOHN Last Admin: 03/06/23 20:13 Dose: 0.5 mg Clonidine HCl (Clonidine Hcl 0.1 Mg Tablet) 0.1 mg PO TID PRN; Protocol PRN Reason: Sx of opioid withdrawal Last Admin: 03/07/23 13:25 Dose: 0.1 mg Dicyclomine HCl (Dicyclomine Hcl 10 Mg Capsule) 10 mg PO QIDACHS PRN PRN Reason: abdominal cramps Last Admin: 03/06/23 16:34 Dose: 10 mg Fluoxetine HCl (Fluoxetine Hcl 20 Mg Capsule) 20 mg PO DAILY [facility] Last Admin: 03/07/23 08:20 Dose: 20 mg Hydroxyzine HCl (Hydroxyzine Hcl 50 Mg Tablet) 50 mg PO QID [facility] Last Admin: 03/07/23 13:20 Dose: 50 mg Hydroxyzine HCl (Hydroxyzine Hcl 50 Mg Tablet) 50 mg PO Q6H PRN PRN Reason: Anxiety Ibuprofen (Ibuprofen 800 Mg Tablet) 800 mg PO Q6H PRN PRN Reason: Pain, Moderate(Pain Scale 4-6) Last Admin: 03/06/23 18:11 Dose: 800 mg Loperamide HCl (Loperamide Hcl 2 Mg Capsule) 2 mg PO Q6H PRN PRN Reason: diarrhea Lorazepam (Lorazepam 1 Mg Tablet) 1 mg PO Q2H PRN PRN Reason: CIWA 8-11 Last Admin: 03/06/23 20:13 Dose: 1 mg Lorazepam (Lorazepam 1 Mg Tablet) 2 mg PO Q2H PRN PRN Reason: CIWA 12-15 Lorazepam (Lorazepam 1 Mg Tablet) 3 mg PO Q2H PRN PRN Reason: CIWA > 15; and call MD Magnesium Hydroxide (Milk Of Magnesia 30 Ml Oral.Susp) 30 ml PO DAILY PRN PRN Reason: Constipation Methadone HCl (Methadone Hcl 20 Mg/2 Ml Oral.Conc) 50 mg PO DAILY [facility] Last Admin: 03/07/23 08:21 Dose: 50 mg Mirtazapine (Mirtazapine 7.5 Mg Tablet) 7.5 mg PO BEDTIME [facility] Last Admin: 03/06/23 20:12 Dose: 7.5 mg Multivitamins/Vitamin C (Multivitamin Tablet) 1 tab PO DAILY [facility] Last Admin: 03/07/23 08:19 Dose: 1 tab Nicotine (Nicotine 21 Mg Patch.Td24) 21 mg TRANSDERMA DAILY [facility] Last Admin: 03/07/23 08:19 Dose: 21 mg Nicotine Polacrilex (Nicotine Polacrilex Lozenge 4 Mg Lozenge) 4 mg BUCCAL Q2H PRN PRN Reason: Nicotine Cravings Last Admin: 03/07/23 13:25 Dose: 4 mg Ondansetron HCl (Ondansetron Odt 4 Mg Tab.Rapdis) 4 mg TRANSLINGU Q6H PRN PRN Reason: nausea Last Admin: 03/07/23 09:08 Dose: 4 mg Quetiapine Fumarate (Quetiapine Fumarate 50 Mg Tablet) 50 mg PO BEDTIME JOHN Last Admin: 03/06/23 20:13 Dose: 50 mg Quetiapine Fumarate (Quetiapine Fumarate 50 Mg Tablet) 50 mg PO BID PRN PRN Reason: agitation Topiramate (Topiramate 25 Mg Tablet) 25 mg PO BID JOHN Last Admin: 03/07/23 08:20 Dose: 25 mg Trazodone HCl (Trazodone Hcl 50 Mg Tablet) 50 mg PO BEDTIME MRX1 PRN PRN Reason: Insomnia Last Admin: 03/06/23 23:22 Dose: 50 mg Allergies Allergies Allergy/AdvReac Type Severity Reaction Status Date / Time Penicillins [PENICILLINS] Allergy Unknown THROAT Verified 02/23/23 07:26 CLOSES haloperidol AdvReac Severe pharingeal Verified 02/23/23 07:26 dystonia Assessment & Plan Assessment & Plan (1) Opioid use disorder: Status: Acute Code(s): F11.90 - Opioid use, unspecified, uncomplicated (2) Cocaine use disorder: Status: Acute Code(s): F14.10 - Cocaine abuse, uncomplicated (3) Alcohol use disorder: Status: Acute Code(s): F10.90 - Alcohol use, unspecified, uncomplicated (4) Nicotine dependence: Status: Acute Code(s): F17.200 - Nicotine dependence, unspecified, uncomplicated (5) Substance induced mood disorder: Status: Acute Code(s): F19.94 - Other psychoactive substance use, unspecified with psychoactive substance-induced mood disorder Plan 03/06: increase methadone by 10 mgs tomorrow. otherwise comfort meds for opioid withdrawal. follow COWS. ativan per [place] protocol for alcohol use disorder. supportive care for cocaine withdrawal. T/C section 35. 03/07: appears somewhat better than yesterday, states she is feeling a bit better. continue current mgmt. Reason for continued inpatient stay Substantial Risk for: inability to function and rapid decompensation Time Spent With Patient Time: Total time managing care of this patient today _25___ minutes.
[2023-03-07 19:45] VITALS: BP 104/75; PULSE 78; RESP 18; TEMP 36.5; O2SAT 96
[2023-03-07] MEDS: Mirtazapine 7.5 MG TABLET PO (20:19)
[2023-03-07] MEDS: QUEtiapine Fumarate 50 MG TABLET PO (20:19)
[2023-03-07] MEDS: Benztropine Mesylate 0.5 MG TABLET PO (20:19)
[2023-03-07] MEDS: traZODone HCL 50 MG TABLET PO ×2 (20:20→22:55)
[2023-03-08 08:00] VITALS: BP 104/58; PULSE 61; RESP 18; TEMP 36.5; O2SAT 98
[2023-03-08] MEDS: Ascorbic Acid 250 MG TABLET PO (08:41)
[2023-03-08] MEDS: FLUoxetine HCl 20 MG CAPSULE PO (08:41)
[2023-03-08] MEDS: Nicotine 21 MG PATCH.TD24 TRANSDERMA (08:41)
[2023-03-08] MEDS: Topiramate 25 MG TABLET PO ×2 (08:42→20:09)
[2023-03-08] MEDS: hydrOXYzine HCL 50 MG TABLET PO ×4 (08:42→20:09)
[2023-03-08] MEDS: Multivitamin TABLET 1 TAB PO (08:42)
[2023-03-08] MEDS: methADONE HCl 20 MG/2 ML ORAL.CONC 50 MG PO (08:43)
[2023-03-08] MEDS: Nicotine Polacrilex Lozenge 4 MG LOZENGE BUCCAL ×3 (09:22→20:30)
[2023-03-08] MEDS: methADONE HCl 20 MG/2 ML ORAL.CONC 5 MG PO (11:31)
--- NOTE | 2023-03-08 11:53 | HO.PSYCHPN ---
Subjective Subjective Date of Service: 03/08/23 Reason For Visit: si Interim History: calm, cooperative, pleasant. states she is feeling much better but her legs are really crampy and painful. asks if anything can be done. says ibu inadequate. agrees to increase methadone by 5 mg daily. also c/o depression, agrees to increase prozac to 40 mg daily. also c/o insomnia, agrees to increase remeron to 15 mg daily with a repeat of 15 mg PRN. no other complaints or requests. per staff, calm, cooperative, pleasant. didn't eat breakfast yesterday. using fewer PRNs for withdrawal. trazodone last NOC. appeared to have slept well. Mental Status Exam Mental Status Exam Narrative: dressed in hospital yon[place], disheveled. cooperative. no PMA/PMR. speech nml rate, amount, loudness. flattened tone, nml latency. thoughts linear and logical with no evident delusions or paranoia. affect constricted, normo-intense, non-labile. no SI/HI/AVH expressed. Diagnostics Vital Signs (24Hr): Vital Signs - 24 hr 03/07/23 13:20 03/07/23 19:45 03/08/23 08:00 Temperature 97.7 F 97.7 F Pulse Rate 72 78 61 Respiratory Rate 18 18 18 Blood Pressure 101/58 L 104/75 104/58 L Pulse Oximetry 96 98 Oxygen Delivery Method Room Air Room Air BMI result Body Mass Index 35.8 Labs 03/02/23 23:02 03/02/23 23:02 Medications Medications Current Medications Acetaminophen (Acetaminophen 325 Mg Tablet) 650 mg PO Q6H PRN PRN Reason: Headache/Pain Mild Scale (1-3) Last Admin: 03/07/23 13:26 Dose: 650 mg Al Hydroxide/Mg Hydroxide (Magnesium Hydrox/Alum Hydrox 30 Ml Oral.Susp) 30 ml PO Q6H PRN PRN Reason: Heartburn/Nausea Ascorbic Acid (Ascorbic Acid 250 Mg Tablet) 250 mg PO DAILY [facility] Last Admin: 03/08/23 08:41 Dose: 250 mg Benztropine Mesylate (Benztropine Mesylate 0.5 Mg Tablet) 0.5 mg PO BEDTIME JOHN Last Admin: 03/07/23 20:19 Dose: 0.5 mg Clonidine HCl (Clonidine Hcl 0.1 Mg Tablet) 0.1 mg PO TID PRN; Protocol PRN Reason: Sx of opioid withdrawal Last Admin: 03/07/23 22:55 Dose: 0.1 mg Dicyclomine HCl (Dicyclomine Hcl 10 Mg Capsule) 10 mg PO QIDACHS PRN PRN Reason: abdominal cramps Last Admin: 03/06/23 16:34 Dose: 10 mg Fluoxetine HCl (Fluoxetine Hcl 20 Mg Capsule) 40 mg PO DAILY JOHN Hydroxyzine HCl (Hydroxyzine Hcl 50 Mg Tablet) 50 mg PO QID JOHN Last Admin: 03/08/23 08:42 Dose: 50 mg Hydroxyzine HCl (Hydroxyzine Hcl 50 Mg Tablet) 50 mg PO Q6H PRN PRN Reason: Anxiety Ibuprofen (Ibuprofen 800 Mg Tablet) 800 mg PO Q6H PRN PRN Reason: Pain, Moderate(Pain Scale 4-6) Last Admin: 03/06/23 18:11 Dose: 800 mg Loperamide HCl (Loperamide Hcl 2 Mg Capsule) 2 mg PO Q6H PRN PRN Reason: diarrhea Magnesium Hydroxide (Milk Of Magnesia 30 Ml Oral.Susp) 30 ml PO DAILY PRN PRN Reason: Constipation Methadone HCl (Methadone Hcl 20 Mg/2 Ml Oral.Conc) 55 mg PO DAILY [facility] Mirtazapine (Mirtazapine 15 Mg Tablet) 15 mg PO BEDTIME [facility] Mirtazapine (Mirtazapine 15 Mg Tablet) 15 mg PO BEDTIME PRN PRN Reason: insomnia Multivitamins/Vitamin C (Multivitamin Tablet) 1 tab PO DAILY [facility] Last Admin: 03/08/23 08:42 Dose: 1 tab Nicotine (Nicotine 21 Mg Patch.Td24) 21 mg TRANSDERMA DAILY [facility] Last Admin: 03/08/23 08:41 Dose: 21 mg Nicotine Polacrilex (Nicotine Polacrilex Lozenge 4 Mg Lozenge) 4 mg BUCCAL Q2H PRN PRN Reason: Nicotine Cravings Last Admin: 03/08/23 09:22 Dose: 4 mg Ondansetron HCl (Ondansetron Odt 4 Mg Tab.Rapdis) 4 mg TRANSLINGU Q6H PRN PRN Reason: nausea Last Admin: 03/07/23 09:08 Dose: 4 mg Quetiapine Fumarate (Quetiapine Fumarate 50 Mg Tablet) 50 mg PO BEDTIME [facility] Last Admin: 03/07/23 20:19 Dose: 50 mg Quetiapine Fumarate (Quetiapine Fumarate 50 Mg Tablet) 50 mg PO BID PRN PRN Reason: agitation Topiramate (Topiramate 25 Mg Tablet) 25 mg PO BID JOHN Last Admin: 03/08/23 08:42 Dose: 25 mg Trazodone HCl (Trazodone Hcl 50 Mg Tablet) 50 mg PO BEDTIME MRX1 PRN PRN Reason: Insomnia Last Admin: 03/07/23 22:55 Dose: 50 mg Allergies Allergies Allergy/AdvReac Type Severity Reaction Status Date / Time Penicillins [PENICILLINS] Allergy Unknown THROAT Verified 02/23/23 07:26 CLOSES haloperidol AdvReac Severe pharingeal Verified 02/23/23 07:26 dystonia Assessment & Plan Assessment & Plan (1) Opioid use disorder: Status: Acute Code(s): F11.90 - Opioid use, unspecified, uncomplicated (2) Cocaine use disorder: Status: Acute Code(s): F14.10 - Cocaine abuse, uncomplicated (3) Alcohol use disorder: Status: Acute Code(s): F10.90 - Alcohol use, unspecified, uncomplicated (4) Nicotine dependence: Status: Acute Code(s): F17.200 - Nicotine dependence, unspecified, uncomplicated (5) Substance induced mood disorder: Status: Acute Code(s): F19.94 - Other psychoactive substance use, unspecified with psychoactive substance-induced mood disorder Plan 03/06: increase methadone by 10 mgs tomorrow. otherwise comfort meds for opioid withdrawal. follow COWS. ativan per CIWA protocol for alcohol use disorder. supportive care for cocaine withdrawal. T/C section 35. 03/07: appears somewhat better than yesterday, states she is feeling a bit better. continue current mgmt. 03/08: DC CIWA and COWS as pt is scoring low. increase methadone to 55 for w/drawal Sx, prozac to 40 for depression, and remeron to 15 MR X 1. Reason for continued inpatient stay Substantial Risk for: inability to function and rapid decompensation Time Spent With Patient Time: Total time managing care of this patient today ____ minutes.
[2023-03-08 19:50] VITALS: BP 106/55; PULSE 57; RESP 16; TEMP 36.5; O2SAT 98
[2023-03-08] MEDS: QUEtiapine Fumarate 50 MG TABLET PO (20:08)
[2023-03-08] MEDS: Mirtazapine 15 MG TABLET PO (20:08)
[2023-03-08] MEDS: Benztropine Mesylate 0.5 MG TABLET PO (20:09)
[2023-03-08] MEDS: traZODone HCL 50 MG TABLET PO (20:30)
[2023-03-09 08:24] VITALS: BP 111/62; PULSE 63; RESP 18; TEMP 36.5; O2SAT 96
[2023-03-09] MEDS: Ascorbic Acid 250 MG TABLET PO (08:25)
[2023-03-09] MEDS: FLUoxetine HCl 20 MG CAPSULE 40 MG PO (08:25)
[2023-03-09] MEDS: Topiramate 25 MG TABLET PO ×2 (08:25→20:07)
[2023-03-09] MEDS: hydrOXYzine HCL 50 MG TABLET PO ×4 (08:26→20:32)
[2023-03-09] MEDS: Nicotine 21 MG PATCH.TD24 TRANSDERMA (08:26)
[2023-03-09] MEDS: methADONE HCl 20 MG/2 ML ORAL.CONC 55 MG PO (08:26)
[2023-03-09] MEDS: Nicotine Polacrilex Lozenge 4 MG LOZENGE BUCCAL ×5 (09:05→20:08)
[2023-03-09] MEDS: Ondansetron ODT 4 MG TAB.RAPDIS TRANSLINGU (09:15)
[2023-03-09] MEDS: Multivitamin TABLET 1 TAB PO (09:16)
[2023-03-09] MEDS: Dicyclomine HCl 10 MG CAPSULE PO ×2 (09:50→19:29)
--- NOTE | 2023-03-09 10:19 | P.PNPSI_ITS ---
Subjective Subjective Date of Service: 03/09/23 Reason For Visit: si Interim History: Patient anxious does for complains of cold symptoms complains auditory hallucinations dysphoria Medication Compliance: Yes Mental Status Exam Mental Status Exam Narrative: cooperative. . speech nml rate, amount, loudness. flattened tone, nml latency. thoughts linear and logical with no evident delusions or paranoia. Mood depressed affect constricted, normo-intense, non-labile. no SI/HI/positive hallucinations Diagnostics Vital Signs (24Hr): Vital Signs - 24 hr 03/08/23 19:50 03/09/23 08:24 Temperature 97.7 F 97.7 F Pulse Rate 57 63 Respiratory Rate 16 18 Blood Pressure 106/55 L 111/62 Pulse Oximetry 98 96 Oxygen Delivery Method Room Air Room Air BMI result Body Mass Index 35.8 Labs 03/02/23 23:02 03/02/23 23:02 Medications Medications Current Medications Acetaminophen (Acetaminophen 325 Mg Tablet) 650 mg PO Q6H PRN PRN Reason: Headache/Pain Mild Scale (1-3) Last Admin: 03/07/23 13:26 Dose: 650 mg Al Hydroxide/Mg Hydroxide (Magnesium Hydrox/Alum Hydrox 30 Ml Oral.Susp) 30 ml PO Q6H PRN PRN Reason: Heartburn/Nausea Ascorbic Acid (Ascorbic Acid 250 Mg Tablet) 250 mg PO DAILY [facility] Last Admin: 03/09/23 08:25 Dose: 250 mg Benztropine Mesylate (Benztropine Mesylate 0.5 Mg Tablet) 0.5 mg PO BEDTIME [facility] Last Admin: 03/08/23 20:09 Dose: 0.5 mg Clonidine HCl (Clonidine Hcl 0.1 Mg Tablet) 0.1 mg PO TID PRN; Protocol PRN Reason: Sx of opioid withdrawal Last Admin: 03/07/23 22:55 Dose: 0.1 mg Dicyclomine HCl (Dicyclomine Hcl 10 Mg Capsule) 10 mg PO QIDACHS PRN PRN Reason: abdominal cramps Last Admin: 03/09/23 09:50 Dose: 10 mg Fluoxetine HCl (Fluoxetine Hcl 20 Mg Capsule) 40 mg PO DAILY [facility] Last Admin: 03/09/23 08:25 Dose: 40 mg Guaifenesin (Guaifenesin La 600 Mg Tab.Er.12h) 600 mg PO BID PRN PRN Reason: Cough Hydroxyzine HCl (Hydroxyzine Hcl 50 Mg Tablet) 50 mg PO QID [facility] Last Admin: 03/09/23 08:26 Dose: 50 mg Hydroxyzine HCl (Hydroxyzine Hcl 50 Mg Tablet) 50 mg PO Q6H PRN PRN Reason: Anxiety Ibuprofen (Ibuprofen 800 Mg Tablet) 800 mg PO Q6H PRN PRN Reason: Pain, Moderate(Pain Scale 4-6) Last Admin: 03/06/23 18:11 Dose: 800 mg Loperamide HCl (Loperamide Hcl 2 Mg Capsule) 2 mg PO Q6H PRN PRN Reason: diarrhea Magnesium Hydroxide (Milk Of Magnesia 30 Ml Oral.Susp) 30 ml PO DAILY PRN PRN Reason: Constipation Methadone HCl (Methadone Hcl 20 Mg/2 Ml Oral.Conc) 55 mg PO DAILY [facility] Last Admin: 03/09/23 08:26 Dose: 55 mg Mirtazapine (Mirtazapine 15 Mg Tablet) 15 mg PO BEDTIME [facility] Last Admin: 03/08/23 20:08 Dose: 15 mg Mirtazapine (Mirtazapine 15 Mg Tablet) 15 mg PO BEDTIME PRN PRN Reason: insomnia Multivitamins/Vitamin C (Multivitamin Tablet) 1 tab PO DAILY [facility] Last Admin: 03/09/23 09:16 Dose: 1 tab Nicotine (Nicotine 21 Mg Patch.Td24) 21 mg TRANSDERMA DAILY [facility] Last Admin: 03/09/23 08:26 Dose: 21 mg Nicotine Polacrilex (Nicotine Polacrilex Lozenge 4 Mg Lozenge) 4 mg BUCCAL Q2H PRN PRN Reason: Nicotine Cravings Last Admin: 03/09/23 09:05 Dose: 4 mg Ondansetron HCl (Ondansetron Odt 4 Mg Tab.Rapdis) 4 mg TRANSLINGU Q6H PRN PRN Reason: nausea Last Admin: 03/09/23 09:15 Dose: 4 mg Quetiapine Fumarate (Quetiapine Fumarate 50 Mg Tablet) 50 mg PO BEDTIME [facility] Last Admin: 03/08/23 20:08 Dose: 50 mg Quetiapine Fumarate (Quetiapine Fumarate 50 Mg Tablet) 50 mg PO BID PRN PRN Reason: agitation Topiramate (Topiramate 25 Mg Tablet) 25 mg PO BID [facility] Last Admin: 03/09/23 08:25 Dose: 25 mg Trazodone HCl (Trazodone Hcl 50 Mg Tablet) 50 mg PO BEDTIME MRX1 PRN PRN Reason: Insomnia Last Admin: 03/08/23 20:30 Dose: 50 mg Allergies Allergies Allergy/AdvReac Type Severity Reaction Status Date / Time Penicillins [PENICILLINS] Allergy Unknown THROAT Verified 02/23/23 07:26 CLOSES haloperidol AdvReac Severe pharingeal Verified 02/23/23 07:26 dystonia Assessment & Plan Assessment & Plan (1) Opioid use disorder: Status: Acute Code(s): F11.90 - Opioid use, unspecified, uncomplicated (2) Cocaine use disorder: Status: Acute Code(s): F14.10 - Cocaine abuse, uncomplicated (3) Alcohol use disorder: Status: Acute Code(s): F10.90 - Alcohol use, unspecified, uncomplicated (4) Nicotine dependence: Status: Acute Code(s): F17.200 - Nicotine dependence, unspecified, uncomplicated (5) Substance induced mood disorder: Status: Acute Code(s): F19.94 - Other psychoactive substance use, unspecified with psychoactive substance-induced mood disorder Plan 03/06: increase methadone by 10 mgs tomorrow. otherwise comfort meds for opioid withdrawal. follow COWS. ativan per CIWA protocol for alcohol use disorder. supportive care for cocaine withdrawal. T/C section 35. 03/07: appears somewhat better than yesterday, states she is feeling a bit better. continue current mgmt. 03/08: DC CIWA and COWS as pt is scoring low. increase methadone to 55 for w/drawal Sx, prozac to 40 for depression, and remeron to 15 MR X 1. 03/09/2023 Continue plan of care increase quetiapine Reason for continued inpatient stay Substantial Risk for: inability to function and rapid decompensation Time Spent With Patient Time: Total time managing care of this patient today ____ minutes.
[2023-03-09] MEDS: guaiFENesin LA 600 MG TAB.ER.12H PO (13:23)
[2023-03-09] MEDS: QUEtiapine Fumarate 50 MG TABLET PO (17:54)
[2023-03-09] MEDS: Ibuprofen 800 MG TABLET PO (19:29)
[2023-03-09 19:45] VITALS: BP 126/57; PULSE 63; RESP 16; TEMP 36.6; O2SAT 95
[2023-03-09] MEDS: Benztropine Mesylate 0.5 MG TABLET PO (20:07)
[2023-03-09] MEDS: traZODone HCL 50 MG TABLET PO ×2 (20:07→21:32)
[2023-03-09] MEDS: Mirtazapine 15 MG TABLET PO (20:08)
[2023-03-09] MEDS: QUEtiapine Fumarate 100 MG TABLET PO (20:32)
[2023-03-10] MEDS: Nicotine Polacrilex Lozenge 4 MG LOZENGE BUCCAL ×6 (06:08→21:03)
[2023-03-10 08:14] VITALS: BP 134/70; PULSE 62; RESP 16; TEMP 36.5; O2SAT 97
[2023-03-10] MEDS: FLUoxetine HCl 20 MG CAPSULE 40 MG PO (09:15)
[2023-03-10] MEDS: Ascorbic Acid 250 MG TABLET PO (09:15)
[2023-03-10] MEDS: hydrOXYzine HCL 50 MG TABLET PO ×3 (09:15→16:26)
[2023-03-10] MEDS: Multivitamin TABLET 1 TAB PO (09:15)
[2023-03-10] MEDS: Topiramate 25 MG TABLET PO ×2 (09:15→20:02)
[2023-03-10] MEDS: methADONE HCl 20 MG/2 ML ORAL.CONC 55 MG PO (09:18)
[2023-03-10] MEDS: Nicotine 21 MG PATCH.TD24 TRANSDERMA (09:20)
[2023-03-10] MEDS: Ammonium Lactate 12 % Cream 140 GM TUBE 1 APPL TOPICAL (09:36)
[2023-03-10] MEDS: Dicyclomine HCl 10 MG CAPSULE PO (09:36)
[2023-03-10] MEDS: guaiFENesin LA 600 MG TAB.ER.12H PO (09:37)
--- NOTE | 2023-03-10 11:06 | P.PNPSI_ITS ---
Subjective Subjective Date of Service: 03/10/23 Reason For Visit: si Subjective Notes: Conditional Voluntary Interim History: Patient feeling somewhat down and blue complaints of auditory hallucinations she does not think was helped by Seroquel and complains of weight gain. She is asking to see if she could be changed to a different antipsychotic medication. Has some upper risk for Tanya symptoms vital signs and pulse ox have been okay she does feel like she has some type of viral syndrome afebrile Medication Compliance: Yes Attending Groups: Intermittent Review of Systems Some upper respiratory symptoms afebrile no shortness of breath Mental Status Exam Mental Status Exam Narrative: cooperative. . speech nml rate, amount, loudness. flattened tone, nml latency. thoughts linear and logical with no evident delusions or paranoia. Mood depressed affect constricted, , . Had recent SI denies intent in this setting/HI/positive hallucinations often of derogatory nature Diagnostics Vital Signs (24Hr): Vital Signs - 24 hr 03/09/23 19:45 03/10/23 08:14 Temperature 98 F 97.7 F Pulse Rate 63 62 Respiratory Rate 16 16 Blood Pressure 126/57 L 134/70 Pulse Oximetry 95 97 Oxygen Delivery Method Room Air BMI result Body Mass Index 35.8 Labs 03/10/23 18:36 03/10/23 18:36 Medications Medications Current Medications Acetaminophen (Acetaminophen 325 Mg Tablet) 650 mg PO Q6H PRN PRN Reason: Headache/Pain Mild Scale (1-3) Last Admin: 03/07/23 13:26 Dose: 650 mg Al Hydroxide/Mg Hydroxide (Magnesium Hydrox/Alum Hydrox 30 Ml Oral.Susp) 30 ml PO Q6H PRN PRN Reason: Heartburn/Nausea Aripiprazole (Aripiprazole 2 Mg Tablet) 2 mg PO DAILY [facility] Ascorbic Acid (Ascorbic Acid 250 Mg Tablet) 250 mg PO DAILY [facility] Last Admin: 03/10/23 09:15 Dose: 250 mg Benztropine Mesylate (Benztropine Mesylate 0.5 Mg Tablet) 0.5 mg PO BEDTIME JOHN Last Admin: 03/09/23 20:07 Dose: 0.5 mg Clonidine HCl (Clonidine Hcl 0.1 Mg Tablet) 0.1 mg PO TID PRN; Protocol PRN Reason: Sx of opioid withdrawal Last Admin: 03/07/23 22:55 Dose: 0.1 mg Dicyclomine HCl (Dicyclomine Hcl 10 Mg Capsule) 10 mg PO QIDACHS PRN PRN Reason: abdominal cramps Last Admin: 03/10/23 09:36 Dose: 10 mg Fluoxetine HCl (Fluoxetine Hcl 20 Mg Capsule) 40 mg PO DAILY [facility] Last Admin: 03/10/23 09:15 Dose: 40 mg Guaifenesin (Guaifenesin La 600 Mg Tab.Er.12h) 600 mg PO BID PRN PRN Reason: Cough Last Admin: 03/10/23 09:37 Dose: 600 mg Hydroxyzine HCl (Hydroxyzine Hcl 50 Mg Tablet) 50 mg PO QID [facility] Last Admin: 03/10/23 09:15 Dose: 50 mg Hydroxyzine HCl (Hydroxyzine Hcl 50 Mg Tablet) 50 mg PO Q6H PRN PRN Reason: Anxiety Ibuprofen (Ibuprofen 800 Mg Tablet) 800 mg PO Q6H PRN PRN Reason: Pain, Moderate(Pain Scale 4-6) Last Admin: 03/09/23 19:29 Dose: 800 mg Lactic Acid (Ammonium Lactate 12 % Cream 140 Gm Tube) 1 appl TOPICAL BID PRN; Protocol PRN Reason: Dry Skin Last Admin: 03/10/23 09:36 Dose: 1 appl Loperamide HCl (Loperamide Hcl 2 Mg Capsule) 2 mg PO Q6H PRN PRN Reason: diarrhea Magnesium Hydroxide (Milk Of Magnesia 30 Ml Oral.Susp) 30 ml PO DAILY PRN PRN Reason: Constipation Methadone HCl (Methadone Hcl 20 Mg/2 Ml Oral.Conc) 55 mg PO DAILY [facility] Last Admin: 03/10/23 09:18 Dose: 55 mg Mirtazapine (Mirtazapine 15 Mg Tablet) 15 mg PO BEDTIME [facility] Last Admin: 03/09/23 20:08 Dose: 15 mg Mirtazapine (Mirtazapine 15 Mg Tablet) 15 mg PO BEDTIME PRN PRN Reason: insomnia Multivitamins/Vitamin C (Multivitamin Tablet) 1 tab PO DAILY [facility] Last Admin: 03/10/23 09:15 Dose: 1 tab Nicotine (Nicotine 21 Mg Patch.Td24) 21 mg TRANSDERMA DAILY [facility] Last Admin: 03/10/23 09:20 Dose: 21 mg Nicotine Polacrilex (Nicotine Polacrilex Lozenge 4 Mg Lozenge) 4 mg BUCCAL Q2H PRN PRN Reason: Nicotine Cravings Last Admin: 10/22/23 09:37 Dose: 4 mg Ondansetron HCl (Ondansetron Odt 4 Mg Tab.Rapdis) 4 mg TRANSLINGU Q6H PRN PRN Reason: nausea Last Admin: 03/09/23 09:15 Dose: 4 mg Quetiapine Fumarate (Quetiapine Fumarate 100 Mg Tablet) 100 mg PO BEDTIME JOHN Last Admin: 03/09/23 20:32 Dose: 100 mg Quetiapine Fumarate (Quetiapine Fumarate 50 Mg Tablet) 50 mg PO TID PRN PRN Reason: agitation Topiramate (Topiramate 25 Mg Tablet) 25 mg PO BID JOHN Last Admin: 03/10/23 09:15 Dose: 25 mg Trazodone HCl (Trazodone Hcl 50 Mg Tablet) 50 mg PO BEDTIME MRX1 PRN PRN Reason: Insomnia Last Admin: 03/09/23 21:32 Dose: 50 mg Allergies Allergies Allergy/AdvReac Type Severity Reaction Status Date / Time Penicillins [PENICILLINS] Allergy Unknown THROAT Verified 02/23/23 07:26 CLOSES haloperidol AdvReac Severe pharingeal Verified 02/23/23 07:26 dystonia Assessment & Plan Assessment & Plan (1) Opioid use disorder: Status: Acute Code(s): F11.90 - Opioid use, unspecified, uncomplicated (2) Cocaine use disorder: Status: Acute Code(s): F14.10 - Cocaine abuse, uncomplicated (3) Alcohol use disorder: Status: Acute Code(s): F10.90 - Alcohol use, unspecified, uncomplicated (4) Nicotine dependence: Status: Acute Code(s): F17.200 - Nicotine dependence, unspecified, uncomplicated (5) Substance induced mood disorder: Status: Acute Code(s): F19.94 - Other psychoactive substance use, unspecified with psychoactive substance-induced mood disorder (6) Major depression with psychotic features: Status: Acute Code(s): F32.3 - Major depressive disorder, single episode, severe with psychotic features Plan 03/06: increase methadone by 10 mgs tomorrow. otherwise comfort meds for opioid withdrawal. follow COWS. ativan per [facility] protocol for alcohol use disorder. supportive care for cocaine withdrawal. T/C section 35. 03/07: appears somewhat better than yesterday, states she is feeling a bit better. continue current mgmt. 10/20: DC CIWA and COWS as pt is scoring low. increase methadone to 55 for w/drawal Sx, prozac to 40 for depression, and remeron to 15 MR X 1. 03/09/2023 Continue plan of care increase quetiapine 03/10/2023 Patient has been on Seroquel often on for extended period of time feels it was not helpful and had significant weight gain. Discussed option of Abilify start 2 mg patient has some upper respiratory symptoms for treated conservatively no fever shortness of breath check CBC Chem profile Patient educated on: diagnosis and medication risk/benefits Reason for continued inpatient stay Substantial Risk for: harm to self and rapid decompensation Time Spent With Patient Time: Total time managing care of this patient today ____ minutes.
[2023-03-10] MEDS: ARIPiprazole 2 MG TABLET PO (11:28)
[2023-03-10 13:00] VITALS: TEMP 36.2
--- NOTE | 2023-03-10 16:16 | PC.NURSE ---
Pt c/o UR sxs, headache, congestion, green tinged mucous, coughing. Given mucinex at 0937 with little effect. T 97.[address] Hollingsworth notified, no further orders at this time. Pt napping entire afternoon. Woken up at 1600 for visit with father. Ended visit at 1610 d/t sudden onset of nausea, and vomited a copious amount. Pt reports that she has been experiencing intermittent chills, and her sxs are not how she feels when she is experiencing dope sickness. T 98.1, BP 124/65, P 69, o2 98% @ RA. Given zofran for nausea at 1630. Dr. Hollingsworth notified. Awaiting further instruction.
[2023-03-10] MEDS: Ondansetron ODT 4 MG TAB.RAPDIS TRANSLINGU (16:26)
[2023-03-10] MEDS: Acetaminophen 325 MG TABLET 650 MG PO (16:26)
[2023-03-10 18:55] LABS: MANUAL DIFF FLAG NO
[2023-03-10 18:56] LABS: Basophils Percent Auto 0.5 % (0-2); Eosinophils Absolute Auto 0.2 X10*3/uL (0.0-0.4); Eosinophils Percent Auto 4.3 % (0-4); Hematocrit 36.8 % (37.0-47.0); Hemoglobin 11.9 g/dl (12.0-16.0); Imm Gran Abs Auto 0.01 X10*3/uL (0.00-0.03); Imm Gran Pct Auto 0.2 % (0.0-0.4); Lymphocytes Absolute Auto 1.2 X10*3/uL (1.2-4.9); Lymphocytes Percent Auto 29.8 % (20-40); Mean Corpuscular HGB Conc 32.3 g/dl (31.0-35.0); Mean Corpuscular Hemoglobin 25.6 pg (27.0-33.0); Mean Corpuscular Volume 79.1 fL (80.0-98.0); Mean Platelet Volume 10.6 fL (9.4-12.3); Monocytes Absolute Auto 0.3 X10*3/uL (0.1-1.2); Monocytes Percent Auto 6.3 % (2-11); Neutrophils Absolute Auto 2.5 x10*3/uL (2.0-8.3); Neutrophils Percent Auto 58.9 % (45-73); Platelet Count 222 X10*3/uL (160-400); Red Blood Count 4.65 X10*6/uL (4.20-5.50); Red Cell Distribution Width 13.9 % (11.0-16.0); White Blood Count 4.2 X10*3/uL (4.8-10.8)
[2023-03-10 19:13] LABS: Alanine Aminotransferase 28 U/L (0-31); Albumin Level 3.9 g/dL (3.5-5.0); Alkaline Phosphatase 80 U/L (39-117); Anion Gap 16 (12-20); Aspartate Amino Transferase 23 U/L (5-31); Bilirubin Total 0.3 mg/dL (0.0-1.0); Blood Urea Nitrogen 14 mg/dL (9-16); Calcium 9.5 mg/dL (8.4-10.2); Carbon Dioxide 23 mmol/L (22-29); Chloride 104 mmol/L (96-108); Creatinine Clr Calc Pharmacy 108.9; Estimated Glomerular Filt Rate > 60; Glucose Random 122 mg/dL (60-115); Potassium 3.9 mmol/L (3.3-5.1); Sodium 139 mmol/L (135-145); Total Protein 8.1 g/dL (6.5-8.0)
[2023-03-10] MEDS: Mirtazapine 15 MG TABLET PO (20:01)
[2023-03-10] MEDS: QUEtiapine Fumarate 100 MG TABLET PO (20:01)
[2023-03-10] MEDS: traZODone HCL 50 MG TABLET PO (20:01)
[2023-03-10] MEDS: hydrOXYzine HCL 25 MG TABLET PO (20:02)
[2023-03-10] MEDS: Benztropine Mesylate 0.5 MG TABLET PO (20:02)
[2023-03-10 20:23] VITALS: BP 109/55; PULSE 68; RESP 16; TEMP 36.6; O2SAT 98
[2023-03-11] MEDS: Ondansetron ODT 4 MG TAB.RAPDIS TRANSLINGU ×4 (03:15→17:40)
[2023-03-11] MEDS: Acetaminophen 325 MG TABLET 650 MG PO (03:16)
[2023-03-11 04:36] VITALS: BP 108/59; PULSE 91; RESP 18; TEMP 36.7
[2023-03-11] MEDS: cloNIDine HCL 0.1 MG TABLET PO (04:36)
[2023-03-11 08:19] VITALS: BP 112/80; PULSE 97; RESP 16; TEMP 36.9; O2SAT 95
[2023-03-11] MEDS: FLUoxetine HCl 20 MG CAPSULE 40 MG PO (08:36)
[2023-03-11] MEDS: ARIPiprazole 2 MG TABLET PO (08:37)
[2023-03-11] MEDS: hydrOXYzine HCL 25 MG TABLET PO ×4 (08:37→20:17)
[2023-03-11] MEDS: Multivitamin TABLET 1 TAB PO (08:37)
[2023-03-11] MEDS: Ascorbic Acid 250 MG TABLET PO (08:38)
[2023-03-11] MEDS: methADONE HCl 20 MG/2 ML ORAL.CONC 55 MG PO (08:38)
[2023-03-11] MEDS: Topiramate 25 MG TABLET PO ×2 (08:38→20:16)
[2023-03-11] MEDS: Ibuprofen 800 MG TABLET PO (11:17)
[2023-03-11] MEDS: guaiFENesin LA 600 MG TAB.ER.12H PO (11:17)
[2023-03-11] MEDS: Nicotine Polacrilex Lozenge 4 MG LOZENGE BUCCAL ×3 (11:17→20:17)
[2023-03-11 11:45] LABS: COVID-19 Test Negative (Negative); IDNOW Serial# BCCEAD1C
[2023-03-11 12:27] LABS: Appearance Urine Cloudy; Color Urine Dark Yellow; Glucose Urine UA Negative (Negative); Leukocyte Esterase Urine Trace (Negative); Nitrite Urine Negative (Negative); PH 6.5 (5.0-9.0); Specific Gravity - Urine >= 1.030 (1.005-1.025); UMIC TRIGGER UACC YES; Urine Blood Negative (Negative); Urine Ketones Negative (Negative); Urine Protein Trace mg/dL (Neg-Trace)
[2023-03-11 12:37] LABS: Bacteria Urine 2+ (None Seen); Hyaline Casts Urine 0-2 /LPF (0-2); Squamous Epithelial Cell Urine >20 /HPF (0-2); UACC Culture Trigger YES
--- NOTE | 2023-03-11 15:35 | P.PNPSI_ITS ---
Subjective Subjective Date of Service: 03/11/23 Reason For Visit: si Interim History: calm, cooperative. c/o URI Sx and general malaise. believes she is septic; informed her VS and labs argue against. asking for mucinex. wants to come down/off seroquel, agrees to decr HS seroquel from 100 mg to 50 mg, increase HS remeron to 30. also agreeable to increase abilify dosing to 5 mg daily. she believes the 2 mg dose this morning has already been helpful for her. per staff, vomiting yesterday, feeling unwell. up at 0300 this morning vomiting again. diaphoretic. afebrile. c/o having SI with plan to strangle herself with sheets. Mental Status Exam Mental Status Exam Narrative: dressed in hospital [place], disheveled. cooperative. no PMA/PMR. speech nml rate, amount, loudness. flattened tone, nml latency. thoughts linear and logical with no evident delusions or paranoia. affect constricted, normo- intense, non-labile. no SI/HI/AVH expressed. Diagnostics Vital Signs (24Hr): Vital Signs - 24 hr 03/10/23 20:23 03/11/23 04:36 03/11/23 08:19 Temperature 97.9 F 98.0 F 98.4 F Pulse Rate 68 91 97 Respiratory Rate 16 18 16 Blood Pressure 109/55 L 108/59 L 112/80 Pulse Oximetry 98 95 Oxygen Delivery Method Room Air Room Air BMI result Body Mass Index 35.8 Labs 03/10/23 18:36 03/10/23 18:36 Labs: Laboratory Results - last 48 hr 03/10/23 03/11/23 03/11/23 18:36 11:10 12:15 WBC 4.2 L RBC 4.65 Hgb 11.9 L Hct 36.8 L MCV 79.1 L MCH 25.6 L MCHC 32.3 RDW 13.9 Plt Count 222 MPV 10.6 Immature Gran % (Auto) 0.2 Neut % (Auto) 58.9 Lymph % (Auto) 29.8 [place] % (Auto) 6.3 Eos % (Auto) 4.3 H Baso % (Auto) 0.5 Lymph # (Auto) 1.2 [place] # (Auto) 0.3 Eos # (Auto) 0.2 Baso # (Auto) 0.0 Abs Immat Gran (auto) 0.01 Absolute Neuts (auto) 2.5 Absolute Nucleated RBC 0.000 Nucleated RBC % (auto) 0.0 Sodium 139 Potassium 3.9 Chloride 104 Carbon Dioxide 23 Anion Gap 16 BUN 14 Creatinine 0.85 Estim Creat Clear Calc 108.9 Estimated GFR > 60 Random Glucose 122 H Calcium 9.5 Total Bilirubin 0.3 AST 23 ALT 28 Alkaline Phosphatase 80 Total Protein 8.1 H Albumin 3.9 Urine Color Dark Yellow Urine Appearance Cloudy Urine pH 6.5 Ur Specific [place] >= 1.030 H Urine Protein Trace Urine Glucose (UA) Negative Urine Ketones Negative Urine Blood Negative Urine Nitrite Negative Ur Leukocyte Esterase Trace H Urine RBC 3-5 H Urine WBC 6-10 Ur Squamous Epith Cells >20 Urine Bacteria 2+ Hyaline Casts 0-2 COVID-19 (LUX) Negative COVID-19 Clin Com See Note Imaging Radiology Impressions: ITS Impressions Ankle X-Ray 03/10/23 11:46 IMPRESSION: No acute fracture or subluxation Foot X-Ray 03/10/23 11:46 IMPRESSION: No acute fracture or subluxation Medications Medications Current Medications Acetaminophen (Acetaminophen 325 Mg Tablet) 650 mg PO Q6H PRN PRN Reason: Headache/Pain Mild Scale (1-3) Last Admin: 03/11/23 03:16 Dose: 650 mg Al Hydroxide/Mg Hydroxide (Magnesium Hydrox/Alum Hydrox 30 Ml Oral.Susp) 30 ml PO Q6H PRN PRN Reason: Heartburn/Nausea Aripiprazole (Aripiprazole 5 Mg Tablet) 5 mg PO DAILY [facility] Ascorbic Acid (Ascorbic Acid 250 Mg Tablet) 250 mg PO DAILY [facility] Last Admin: 03/11/23 08:38 Dose: 250 mg Benztropine Mesylate (Benztropine Mesylate 0.5 Mg Tablet) 0.5 mg PO BEDTIME JOHN Last Admin: 03/10/23 20:02 Dose: 0.5 mg Clonidine HCl (Clonidine Hcl 0.1 Mg Tablet) 0.1 mg PO TID PRN; Protocol PRN Reason: Sx of opioid withdrawal Last Admin: 03/11/23 04:36 Dose: 0.1 mg Dicyclomine HCl (Dicyclomine Hcl 10 Mg Capsule) 10 mg PO QIDACHS PRN PRN Reason: abdominal cramps Last Admin: 03/10/23 09:36 Dose: 10 mg Fluoxetine HCl (Fluoxetine Hcl 20 Mg Capsule) 40 mg PO DAILY [facility] Last Admin: 03/11/23 08:36 Dose: 40 mg Guaifenesin (Guaifenesin La 600 Mg Tab.Er.12h) 600 mg PO BID PRN PRN Reason: congestion Last Admin: 03/11/23 11:17 Dose: 600 mg Hydroxyzine HCl (Hydroxyzine Hcl 50 Mg Tablet) 50 mg PO Q6H PRN PRN Reason: Anxiety Hydroxyzine HCl (Hydroxyzine Hcl 25 Mg Tablet) 25 mg PO QID [facility] Last Admin: 03/11/23 12:07 Dose: 25 mg Ibuprofen (Ibuprofen 800 Mg Tablet) 800 mg PO Q6H PRN PRN Reason: Pain, Moderate(Pain Scale 4-6) Last Admin: 03/11/23 11:17 Dose: 800 mg Lactic Acid (Ammonium Lactate 12 % Cream 140 Gm Tube) 1 appl TOPICAL BID PRN; Protocol PRN Reason: Dry Skin Last Admin: 03/10/23 09:36 Dose: 1 appl Loperamide HCl (Loperamide Hcl 2 Mg Capsule) 2 mg PO Q6H PRN PRN Reason: diarrhea Magnesium Hydroxide (Milk Of Magnesia 30 Ml Oral.Susp) 30 ml PO DAILY PRN PRN Reason: Constipation Methadone HCl (Methadone Hcl 20 Mg/2 Ml Oral.Conc) 55 mg PO DAILY [facility] Last Admin: 03/11/23 08:38 Dose: 55 mg Mirtazapine (Mirtazapine 15 Mg Tablet) 15 mg PO BEDTIME PRN PRN Reason: insomnia Mirtazapine (Mirtazapine 30 Mg Tablet) 30 mg PO BEDTIME [facility] Multivitamins/Vitamin C (Multivitamin Tablet) 1 tab PO DAILY [facility] Last Admin: 03/11/23 08:37 Dose: 1 tab Nicotine (Nicotine 21 Mg Patch.Td24) 21 mg TRANSDERMA DAILY [facility] Last Admin: 03/11/23 08:44 Dose: Not Given Nicotine Polacrilex (Nicotine Polacrilex Lozenge 4 Mg Lozenge) 4 mg BUCCAL Q2H PRN PRN Reason: Nicotine Cravings Last Admin: 03/11/23 11:17 Dose: 4 mg Ondansetron HCl (Ondansetron Odt 4 Mg Tab.Rapdis) 4 mg TRANSLINGU Q6H PRN PRN Reason: nausea Last Admin: 03/11/23 09:20 Dose: 4 mg Quetiapine Fumarate (Quetiapine Fumarate 50 Mg Tablet) 50 mg PO BEDTIME JOHN Topiramate (Topiramate 25 Mg Tablet) 25 mg PO BID JOHN Last Admin: 03/11/23 08:38 Dose: 25 mg Trazodone HCl (Trazodone Hcl 50 Mg Tablet) 50 mg PO BEDTIME MRX1 PRN PRN Reason: Insomnia Last Admin: 03/10/23 20:01 Dose: 50 mg Allergies Allergies Allergy/AdvReac Type Severity Reaction Status Date / Time Penicillins [PENICILLINS] Allergy Unknown THROAT Verified 02/23/23 07:26 CLOSES haloperidol AdvReac Severe pharingeal Verified 02/23/23 07:26 dystonia Assessment & Plan Assessment & Plan (1) Opioid use disorder: Status: Acute Code(s): F11.90 - Opioid use, unspecified, uncomplicated (2) Cocaine use disorder: Status: Acute Code(s): F14.10 - Cocaine abuse, uncomplicated (3) Alcohol use disorder: Status: Acute Code(s): F10.90 - Alcohol use, unspecified, uncomplicated (4) Nicotine dependence: Status: Acute Code(s): F17.200 - Nicotine dependence, unspecified, uncomplicated (5) Substance induced mood disorder: Status: Acute Code(s): F19.94 - Other psychoactive substance use, unspecified with psychoactive substance-induced mood disorder (6) Major depression with psychotic features: Status: Acute Code(s): F32.3 - Major depressive disorder, single episode, severe with psychotic features Plan 03/06: increase methadone by 10 mgs tomorrow. otherwise comfort meds for opioid withdrawal. follow COWS. ativan per CIWA protocol for alcohol use disorder. supportive care for cocaine withdrawal. T/C section 35. 03/07: appears somewhat better than yesterday, states she is feeling a bit better. continue current mgmt. 03/08: DC CIWA and COWS as pt is scoring low. increase methadone to 55 for w/drawal Sx, prozac to 40 for depression, and remeron to 15 MR X 1. 03/09: Continue plan of care increase quetiapine 03/10: Patient has been on Seroquel often on for extended period of time feels it was not helpful and had significant weight gain. Discussed option of Abilify start 2 mg patient has some upper respiratory symptoms for treated conservatively no fever shortness of breath check CBC Chem profile. 03/11: U/A contaminated. COVID NEG. CBC benign. increase abilify to 5 QAM, decrease seroquel at HS from 100 to 50. increase remeron from 15 QHS to 30 QHS. likely viral syndrome. continue current mgmt otherwise. father has obtained section 35 as of today. Q5 min checks for stated SI with plan. Reason for continued inpatient stay Substantial Risk for: harm to self, inability to function and rapid decompensation Time Spent With Patient Time: Total time managing care of this patient today __25__ minutes.
[2023-03-11 19:25] VITALS: BP 98/51; PULSE 65; RESP 15; TEMP 36.2; O2SAT 98
[2023-03-11] MEDS: traZODone HCL 50 MG TABLET PO (20:16)
[2023-03-11] MEDS: Benztropine Mesylate 0.5 MG TABLET PO (20:16)
[2023-03-11] MEDS: QUEtiapine Fumarate 50 MG TABLET PO (20:17)
[2023-03-11] MEDS: Mirtazapine 30 MG TABLET PO (20:17)
[2023-03-12] MEDS: Ondansetron ODT 4 MG TAB.RAPDIS TRANSLINGU ×4 (06:09→20:07)
[2023-03-12] MEDS: Nicotine 21 MG PATCH.TD24 TRANSDERMA (08:16)
[2023-03-12] MEDS: Multivitamin TABLET 1 TAB PO (08:17)
[2023-03-12] MEDS: ARIPiprazole 5 MG TABLET PO (08:17)
[2023-03-12] MEDS: FLUoxetine HCl 20 MG CAPSULE 40 MG PO (08:17)
[2023-03-12] MEDS: hydrOXYzine HCL 25 MG TABLET PO ×4 (08:17→20:08)
[2023-03-12] MEDS: Topiramate 25 MG TABLET PO ×2 (08:17→20:06)
[2023-03-12] MEDS: methADONE HCl 20 MG/2 ML ORAL.CONC 55 MG PO (08:18)
[2023-03-12 08:52] VITALS: BP 130/77; PULSE 83; RESP 16; TEMP 36.1; O2SAT 99
[2023-03-12] MEDS: guaiFENesin LA 600 MG TAB.ER.12H PO (09:08)
[2023-03-12] MEDS: Nicotine Polacrilex Lozenge 4 MG LOZENGE BUCCAL ×2 (09:08→18:51)
[2023-03-12] MEDS: methADONE HCl 20 MG/2 ML ORAL.CONC 5 MG PO (10:30)
[2023-03-12] MEDS: Acetaminophen 325 MG TABLET 650 MG PO (10:32)
--- NOTE | 2023-03-12 14:30 | HO.PSYCHPN ---
Subjective Subjective Date of Service: 03/12/23 Reason For Visit: si Interim History: calm, cooperative. discuss her URI-like syndrome of hot and cold flushes, sore throat, congestion, fatigue, aches, nausea. trial of additional 5 mg methadone in the event it is withdrawal. also discuss STI testing, pt in agreement. interested in remeron dosing increase for insomnia as well. per staff, calm, cooperative. pleasant. no groups. c/o nausea. +SI yesterday. now thoughts gone. slept well. Mental Status Exam Mental Status Exam Narrative: dressed in street clothes, disheveled. cooperative. no PMA/PMR. speech nml rate, amount, loudness. flattened tone, nml latency. thoughts linear and logical with no evident delusions or paranoia. affect constricted, normo-intense, non-labile. no SI/HI/AVH expressed. Diagnostics Vital Signs (24Hr): Vital Signs - 24 hr 03/11/23 19:25 03/12/23 08:52 Temperature 97.2 F 97.0 F Pulse Rate 65 83 Respiratory Rate 15 16 Blood Pressure 98/51 L 130/77 Pulse Oximetry 98 99 Oxygen Delivery Method Room Air Room Air BMI result Body Mass Index 35.8 Labs 03/10/23 18:36 03/10/23 18:36 Labs: Laboratory Results - last 48 hr 03/10/23 03/11/23 03/11/23 18:36 11:10 12:15 WBC 4.2 L RBC 4.65 Hgb 11.9 L Hct 36.8 L MCV 79.1 L MCH 25.6 L MCHC 32.3 RDW 13.9 Plt Count 222 MPV 10.6 Immature Gran % (Auto) 0.2 Neut % (Auto) 58.9 Lymph % (Auto) 29.8 [place] % (Auto) 6.3 Eos % (Auto) 4.3 H Baso % (Auto) 0.5 Lymph # (Auto) 1.2 [place] # (Auto) 0.3 Eos # (Auto) 0.2 Baso # (Auto) 0.0 Abs Immat Gran (auto) 0.01 Absolute Neuts (auto) 2.5 Absolute Nucleated RBC 0.000 Nucleated RBC % (auto) 0.0 Sodium 139 Potassium 3.9 Chloride 104 Carbon Dioxide 23 Anion Gap 16 BUN 14 Creatinine 0.85 Estim Creat Clear Calc 108.9 Estimated GFR > 60 Random Glucose 122 H Calcium 9.5 Total Bilirubin 0.3 AST 23 ALT 28 Alkaline Phosphatase 80 Total Protein 8.1 H Albumin 3.9 Urine Color Dark Yellow Urine Appearance Cloudy Urine pH 6.5 Ur Specific [place] >= 1.030 H Urine Protein Trace Urine Glucose (UA) Negative Urine Ketones Negative Urine Blood Negative Urine Nitrite Negative Ur Leukocyte Esterase Trace H Urine RBC 3-5 H Urine WBC 6-10 Ur Squamous Epith Cells >20 Urine Bacteria 2+ Hyaline Casts 0-2 COVID-19 (LUX) Negative COVID-19 Clin Com See Note Imaging Radiology Impressions: ITS Impressions Ankle X-Ray 03/10/23 11:46 IMPRESSION: No acute fracture or subluxation Foot X-Ray 03/10/23 11:46 IMPRESSION: No acute fracture or subluxation Medications Medications Current Medications Acetaminophen (Acetaminophen 325 Mg Tablet) 650 mg PO Q6H PRN PRN Reason: Headache/Pain Mild Scale (1-3) Last Admin: 03/12/23 10:32 Dose: 650 mg Al Hydroxide/Mg Hydroxide (Magnesium Hydrox/Alum Hydrox 30 Ml Oral.Susp) 30 ml PO Q6H PRN PRN Reason: Heartburn/Nausea Aripiprazole (Aripiprazole 5 Mg Tablet) 5 mg PO DAILY [facility] Last Admin: 03/12/23 08:17 Dose: 5 mg Ascorbic Acid (Ascorbic Acid 250 Mg Tablet) 250 mg PO DAILY [facility] Last Admin: 03/12/23 08:44 Dose: Not Given Benztropine Mesylate (Benztropine Mesylate 0.5 Mg Tablet) 0.5 mg PO BEDTIME [facility] Last Admin: 03/11/23 20:16 Dose: 0.5 mg Clonidine HCl (Clonidine Hcl 0.1 Mg Tablet) 0.1 mg PO TID PRN; Protocol PRN Reason: Sx of opioid withdrawal Last Admin: 03/11/23 04:36 Dose: 0.1 mg Dicyclomine HCl (Dicyclomine Hcl 10 Mg Capsule) 10 mg PO QIDACHS PRN PRN Reason: abdominal cramps Last Admin: 03/10/23 09:36 Dose: 10 mg Fluoxetine HCl (Fluoxetine Hcl 20 Mg Capsule) 40 mg PO DAILY [facility] Last Admin: 03/12/23 08:17 Dose: 40 mg Guaifenesin (Guaifenesin La 600 Mg Tab.Er.12h) 600 mg PO BID PRN PRN Reason: congestion Last Admin: 03/12/23 09:08 Dose: 600 mg Hydroxyzine HCl (Hydroxyzine Hcl 50 Mg Tablet) 50 mg PO Q6H PRN PRN Reason: Anxiety Hydroxyzine HCl (Hydroxyzine Hcl 25 Mg Tablet) 25 mg PO QID [facility] Last Admin: 03/12/23 13:14 Dose: 25 mg Ibuprofen (Ibuprofen 800 Mg Tablet) 800 mg PO Q6H PRN PRN Reason: Pain, Moderate(Pain Scale 4-6) Last Admin: 03/11/23 11:17 Dose: 800 mg Lactic Acid (Ammonium Lactate 12 % Cream 140 Gm Tube) 1 appl TOPICAL BID PRN; Protocol PRN Reason: Dry Skin Last Admin: 03/10/23 09:36 Dose: 1 appl Loperamide HCl (Loperamide Hcl 2 Mg Capsule) 2 mg PO Q6H PRN PRN Reason: diarrhea Magnesium Hydroxide (Milk Of Magnesia 30 Ml Oral.Susp) 30 ml PO DAILY PRN PRN Reason: Constipation Methadone HCl (Methadone Hcl 20 Mg/2 Ml Oral.Conc) 55 mg PO DAILY [facility] Last Admin: 03/12/23 08:18 Dose: 55 mg Mirtazapine (Mirtazapine 15 Mg Tablet) 45 mg PO BEDTIME [facility] Multivitamins/Vitamin C (Multivitamin Tablet) 1 tab PO DAILY [facility] Last Admin: 03/12/23 08:17 Dose: 1 tab Nicotine (Nicotine 21 Mg Patch.Td24) 21 mg TRANSDERMA DAILY [facility] Last Admin: 03/12/23 08:16 Dose: 21 mg Nicotine Polacrilex (Nicotine Polacrilex Lozenge 4 Mg Lozenge) 4 mg BUCCAL Q2H PRN PRN Reason: Nicotine Cravings Last Admin: 03/12/23 09:08 Dose: 4 mg Ondansetron HCl (Ondansetron Odt 4 Mg Tab.Rapdis) 4 mg TRANSLINGU Q4H PRN PRN Reason: nausea Last Admin: 03/12/23 10:30 Dose: 4 mg Quetiapine Fumarate (Quetiapine Fumarate 50 Mg Tablet) 50 mg PO BEDTIME [facility] Last Admin: 03/11/23 20:17 Dose: 50 mg Topiramate (Topiramate 25 Mg Tablet) 25 mg PO BID [facility] Last Admin: 03/12/23 08:17 Dose: 25 mg Trazodone HCl (Trazodone Hcl 50 Mg Tablet) 50 mg PO BEDTIME MRX1 PRN PRN Reason: Insomnia Last Admin: 03/11/23 20:16 Dose: 50 mg Allergies Allergies Allergy/AdvReac Type Severity Reaction Status Date / Time Penicillins [PENICILLINS] Allergy Unknown THROAT Verified 02/23/23 07:26 CLOSES haloperidol AdvReac Severe pharingeal Verified 02/23/23 07:26 dystonia Assessment & Plan Assessment & Plan (1) Opioid use disorder: Status: Acute Code(s): F11.90 - Opioid use, unspecified, uncomplicated (2) Cocaine use disorder: Status: Acute Code(s): F14.10 - Cocaine abuse, uncomplicated (3) Alcohol use disorder: Status: Acute Code(s): F10.90 - Alcohol use, unspecified, uncomplicated (4) Nicotine dependence: Status: Acute Code(s): F17.200 - Nicotine dependence, unspecified, uncomplicated (5) Substance induced mood disorder: Status: Acute Code(s): F19.94 - Other psychoactive substance use, unspecified with psychoactive substance-induced mood disorder (6) Major depression with psychotic features: Status: Acute Code(s): F32.3 - Major depressive disorder, single episode, severe with psychotic features Plan 03/06: increase methadone by 10 mgs tomorrow. otherwise comfort meds for opioid withdrawal. follow COWS. ativan per [facility]WA protocol for alcohol use disorder. supportive care for cocaine withdrawal. T/C section 35. 03/07: appears somewhat better than yesterday, states she is feeling a bit better. continue current mgmt. 03/08: DC CIWA and COWS as pt is scoring low. increase methadone to 55 for w/drawal Sx, prozac to 40 for depression, and remeron to 15 MR X 1. 03/09: Continue plan of care increase quetiapine 03/10: Patient has been on Seroquel often on for extended period of time feels it was not helpful and had significant weight gain. Discussed option of Abilify start 2 mg patient has some upper respiratory symptoms for treated conservatively no fever shortness of breath check CBC Chem profile. 03/11: U/A contaminated. COVID NEG. CBC benign. increase abilify to 5 QAM, decrease seroquel at HS from 100 to 50. increase remeron from 15 QHS to 30 QHS. likely viral syndrome. continue current mgmt otherwise. father has obtained section 35 as of today. Q5 min checks for stated SI with plan. 03/12: pt likely in withdrawal, increase methadone by 5 mg daily. mildly disrupted sleep, increase remeron to 30. STI testing ordered. Reason for continued inpatient stay Substantial Risk for: inability to function and rapid decompensation Time Spent With Patient Time: Total time managing care of this patient today __35__ minutes.
[2023-03-12] MEDS: Ibuprofen 800 MG TABLET PO (16:00)
[2023-03-12] MEDS: Throat Lozenge, Medicated LOZENGE 1 LOZENGE MUCOUS MEM ×2 (17:56→21:07)
[2023-03-12 19:50] VITALS: BP 125/82; PULSE 73; RESP 16; TEMP 36.4; O2SAT 98
[2023-03-12] MEDS: Mirtazapine 15 MG TABLET 45 MG PO (20:06)
[2023-03-12] MEDS: Benztropine Mesylate 0.5 MG TABLET PO (20:08)
[2023-03-12] MEDS: traZODone HCL 50 MG TABLET PO (20:08)
[2023-03-12] MEDS: QUEtiapine Fumarate 50 MG TABLET PO (20:10)
[2023-03-12 21:09] LABS: UPreg QC Valid YES; Urine Pregnancy NEGATIVE (NEGATIVE)
[2023-03-13 07:19] VITALS: BP 105/59; PULSE 66; RESP 16; TEMP 36.9; O2SAT 98
[2023-03-13] MEDS: Nicotine 21 MG PATCH.TD24 TRANSDERMA (08:10)
[2023-03-13] MEDS: FLUoxetine HCl 20 MG CAPSULE 40 MG PO (08:11)
[2023-03-13] MEDS: Ondansetron ODT 4 MG TAB.RAPDIS TRANSLINGU ×2 (08:11→17:43)
[2023-03-13] MEDS: Ascorbic Acid 250 MG TABLET PO (08:11)
[2023-03-13] MEDS: Ibuprofen 800 MG TABLET PO (08:11)
[2023-03-13] MEDS: ARIPiprazole 5 MG TABLET PO (08:11)
[2023-03-13] MEDS: Topiramate 25 MG TABLET PO ×2 (08:11→20:25)
[2023-03-13] MEDS: Multivitamin TABLET 1 TAB PO (08:11)
[2023-03-13] MEDS: hydrOXYzine HCL 25 MG TABLET PO ×4 (08:12→20:25)
[2023-03-13] MEDS: methADONE HCl 20 MG/2 ML ORAL.CONC 60 MG PO (08:12)
[2023-03-13 08:21] LABS: HIV AB/AG Nonreactive (Nonreactive); HIV Num 1 0.37 S/CO (0.00-0.99)
[2023-03-13 08:27] LABS: Syphilis Screen Reactive (Nonreactive)
[2023-03-13] MEDS: Throat Lozenge, Medicated LOZENGE 1 LOZENGE MUCOUS MEM ×2 (08:48→11:29)
[2023-03-13] MEDS: Nicotine Polacrilex Lozenge 4 MG LOZENGE BUCCAL ×2 (10:01→16:34)
[2023-03-13] MEDS: Ammonium Lactate 12 % Cream 140 GM TUBE 1 APPL TOPICAL ×2 (10:02→20:27)
[2023-03-13] MEDS: Acetaminophen 325 MG TABLET 650 MG PO (11:18)
[2023-03-13 11:52] LABS: CT PCR NOT DETECTED (Not Detect.); NG PCR NOT DETECTED (Not Detect.)
--- NOTE | 2023-03-13 15:53 | HO.PSYCHPN ---
Subjective Subjective Date of Service: 03/13/23 Reason For Visit: si Interim History: reports ongoing nausea but improved from prior. continues to believe Sx are not withdrawal mediated. STI lab results reviewed, pt is POS for syphilis screen but says she has had it in the past and been treated. confirmation from state lab pending. wants to come off of seroquel but did not sleep well last night. agreeable to decrease seroquel to 25 tonight and start trazodone 150, which she has had in the past at that dose. also c/o left foot/ankle pain from fall, agrees to have PT consult. per staff, anx and dep. safe. slept. Mental Status Exam Mental Status Exam Narrative: dressed in street clothes, disheveled. cooperative. no PMA/PMR. speech nml rate, amount, loudness. flattened tone, nml latency. thoughts linear and logical with no evident delusions or paranoia. affect constricted, normo-intense, non-labile. no SI/HI/AVH expressed. Diagnostics Vital Signs (24Hr): Vital Signs - 24 hr 03/12/23 19:50 03/13/23 07:19 Temperature 97.5 F 98.4 F Pulse Rate 73 66 Respiratory Rate 16 16 Blood Pressure 125/82 105/59 L Pulse Oximetry 98 98 Oxygen Delivery Method Room Air Room Air BMI result Body Mass Index 35.8 Labs 03/10/23 18:36 03/10/23 18:36 Labs: Laboratory Results - last 48 hr 03/12/23 03/12/23 15:41 20:24 Urine Test NEGATIVE T.pallidum Ab (EIA) Reactive A Chlam trachomat DNA PCR NOT DETECTED HIV 1&2 Ab/P24 Ag 4thGn Nonreactive N.gonorrhoeae DNA (PCR) NOT DETECTED Imaging Radiology Impressions: ITS Impressions Ankle X-Ray 03/10/23 11:46 IMPRESSION: No acute fracture or subluxation Foot X-Ray 03/10/23 11:46 IMPRESSION: No acute fracture or subluxation Medications Medications Current Medications Acetaminophen (Acetaminophen 325 Mg Tablet) 650 mg PO Q6H PRN PRN Reason: Headache/Pain Mild Scale (1-3) Last Admin: 03/13/23 11:18 Dose: 650 mg Al Hydroxide/Mg Hydroxide (Magnesium Hydrox/Alum Hydrox 30 Ml Oral.Susp) 30 ml PO Q6H PRN PRN Reason: Heartburn/Nausea Aripiprazole (Aripiprazole 5 Mg Tablet) 5 mg PO DAILY [facility] Last Admin: 03/13/23 08:11 Dose: 5 mg Ascorbic Acid (Ascorbic Acid 250 Mg Tablet) 250 mg PO DAILY [facility] Last Admin: 03/13/23 08:11 Dose: 250 mg Benzocaine (Throat Lozenge, Medicated Lozenge) 1 lozenge MUCOUS MEM Q2H PRN PRN Reason: Sore Throat Last Admin: 03/13/23 11:29 Dose: 1 lozenge Benztropine Mesylate (Benztropine Mesylate 0.5 Mg Tablet) 0.5 mg PO BEDTIME [facility] Last Admin: 03/12/23 20:08 Dose: 0.5 mg Clonidine HCl (Clonidine Hcl 0.1 Mg Tablet) 0.1 mg PO TID PRN; Protocol PRN Reason: Sx of opioid withdrawal Last Admin: 03/11/23 04:36 Dose: 0.1 mg Dicyclomine HCl (Dicyclomine Hcl 10 Mg Capsule) 10 mg PO QIDACHS PRN PRN Reason: abdominal cramps Last Admin: 03/10/23 09:36 Dose: 10 mg Fluoxetine HCl (Fluoxetine Hcl 20 Mg Capsule) 40 mg PO DAILY [facility] Last Admin: 03/13/23 08:11 Dose: 40 mg Guaifenesin (Guaifenesin [place] 600 Mg Tab.Er.12h) 600 mg PO BID PRN PRN Reason: congestion Last Admin: 03/12/23 09:08 Dose: 600 mg Hydroxyzine HCl (Hydroxyzine Hcl 50 Mg Tablet) 50 mg PO Q6H PRN PRN Reason: Anxiety Hydroxyzine HCl (Hydroxyzine Hcl 25 Mg Tablet) 25 mg PO QID [facility] Last Admin: 03/13/23 15:24 Dose: 25 mg Ibuprofen (Ibuprofen 800 Mg Tablet) 800 mg PO Q6H PRN PRN Reason: Pain, Moderate(Pain Scale 4-6) Last Admin: 03/13/23 08:11 Dose: 800 mg Lactic Acid (Ammonium Lactate 12 % Cream 140 Gm Tube) 1 appl TOPICAL BID PRN; Protocol PRN Reason: Dry Skin Last Admin: 03/13/23 10:02 Dose: 1 appl Loperamide HCl (Loperamide Hcl 2 Mg Capsule) 2 mg PO Q6H PRN PRN Reason: diarrhea Magnesium Hydroxide (Milk Of Magnesia 30 Ml Oral.Susp) 30 ml PO DAILY PRN PRN Reason: Constipation Methadone HCl (Methadone Hcl 20 Mg/2 Ml Oral.Conc) 60 mg PO DAILY [facility] Last Admin: 03/13/23 08:12 Dose: 60 mg Mirtazapine (Mirtazapine 15 Mg Tablet) 45 mg PO BEDTIME JOHN Last Admin: 03/12/23 20:06 Dose: 45 mg Multivitamins/Vitamin C (Multivitamin Tablet) 1 tab PO DAILY JOHN Last Admin: 03/13/23 08:11 Dose: 1 tab Nicotine (Nicotine 21 Mg Patch.Td24) 21 mg TRANSDERMA DAILY [facility] Last Admin: 03/13/23 08:10 Dose: 21 mg Nicotine Polacrilex (Nicotine Polacrilex Lozenge 4 Mg Lozenge) 4 mg BUCCAL Q2H PRN PRN Reason: Nicotine Cravings Last Admin: 03/13/23 10:01 Dose: 4 mg Ondansetron HCl (Ondansetron Odt 4 Mg Tab.Rapdis) 4 mg TRANSLINGU Q4H PRN PRN Reason: nausea Last Admin: 03/13/23 08:11 Dose: 4 mg Quetiapine Fumarate (Quetiapine Fumarate 25 Mg Tablet) 25 mg PO BEDTIME JOHN Stop: 03/13/23 21:01 Topiramate (Topiramate 25 Mg Tablet) 25 mg PO BID [facility] Last Admin: 03/13/23 08:11 Dose: 25 mg Trazodone HCl (Trazodone Hcl 50 Mg Tablet) 150 mg PO BEDTIME [facility] Allergies Allergies Allergy/AdvReac Type Severity Reaction Status Date / Time Penicillins [PENICILLINS] Allergy Unknown THROAT Verified 02/23/23 07:26 CLOSES haloperidol AdvReac Severe pharingeal Verified 02/23/23 07:26 dystonia Assessment & Plan Assessment & Plan (1) Opioid use disorder: Status: Acute Code(s): F11.90 - Opioid use, unspecified, uncomplicated (2) Cocaine use disorder: Status: Acute Code(s): F14.10 - Cocaine abuse, uncomplicated (3) Alcohol use disorder: Status: Acute Code(s): F10.90 - Alcohol use, unspecified, uncomplicated (4) Nicotine dependence: Status: Acute Code(s): F17.200 - Nicotine dependence, unspecified, uncomplicated (5) Substance induced mood disorder: Status: Acute Code(s): F19.94 - Other psychoactive substance use, unspecified with psychoactive substance-induced mood disorder (6) Major depression with psychotic features: Status: Acute Code(s): F32.3 - Major depressive disorder, single episode, severe with psychotic features Plan 03/06: increase methadone by 10 mgs tomorrow. otherwise comfort meds for opioid withdrawal. follow COWS. ativan per [facility]WA protocol for alcohol use disorder. supportive care for cocaine withdrawal. T/C section 35. 03/07: appears somewhat better than yesterday, states she is feeling a bit better. continue current mgmt. 03/08: DC CIWA and COWS as pt is scoring low. increase methadone to 55 for w/drawal Sx, prozac to 40 for depression, and remeron to 15 MR X 1. 03/09: Continue plan of care increase quetiapine 03/10: Patient has been on Seroquel often on for extended period of time feels it was not helpful and had significant weight gain. Discussed option of Abilify start 2 mg patient has some upper respiratory symptoms for treated conservatively no fever shortness of breath check CBC Chem profile. 03/11: U/A contaminated. COVID NEG. CBC benign. increase abilify to 5 QAM, decrease seroquel at HS from 100 to 50. increase remeron from 15 QHS to 30 QHS. likely viral syndrome. continue current mgmt otherwise. father has obtained section 35 as of today. Q5 min checks for stated SI with plan. 03/12: pt likely in withdrawal, increase methadone by 5 mg daily. mildly disrupted sleep, increase remeron to 30. STI testing ordered. 03/13: improvement in nausea, pt insists it is not withdrawal-related. poor sleep but wants to taper seroquel, which is decreased to 25 mg tonight. start trazodone 150 instead. PT consult rec TEDS and full show rather than slipper. continue current mgmt. Reason for continued inpatient stay Substantial Risk for: inability to function and rapid decompensation Time Spent With Patient Time: Total time managing care of this patient today __35__ minutes.
[2023-03-13] MEDS: Dicyclomine HCl 10 MG CAPSULE PO (17:44)
[2023-03-13] MEDS: hydrOXYzine HCL 50 MG TABLET PO (20:01)
[2023-03-13 20:15] VITALS: BP 125/75; PULSE 72; RESP 16; TEMP 36.6; O2SAT 99
[2023-03-13] MEDS: traZODone HCL 50 MG TABLET 150 MG PO (20:24)
[2023-03-13] MEDS: QUEtiapine Fumarate 25 MG TABLET PO (20:24)
[2023-03-13] MEDS: Mirtazapine 15 MG TABLET 45 MG PO (20:25)
[2023-03-13] MEDS: Benztropine Mesylate 0.5 MG TABLET PO (20:25)
[2023-03-14 07:00] VITALS: BMI 35.6
[2023-03-14 07:16] VITALS: BP 108/58; PULSE 73; RESP 16; TEMP 36.7; O2SAT 98
[2023-03-14] MEDS: Multivitamin TABLET 1 TAB PO (08:32)
[2023-03-14] MEDS: Topiramate 25 MG TABLET PO ×2 (08:32→21:29)
[2023-03-14] MEDS: ARIPiprazole 5 MG TABLET PO ×2 (08:32→10:58)
[2023-03-14] MEDS: Ascorbic Acid 250 MG TABLET PO (08:32)
[2023-03-14] MEDS: Nicotine 21 MG PATCH.TD24 TRANSDERMA (08:32)
[2023-03-14] MEDS: FLUoxetine HCl 20 MG CAPSULE 40 MG PO (08:32)
[2023-03-14] MEDS: hydrOXYzine HCL 25 MG TABLET PO ×4 (08:33→21:30)
[2023-03-14] MEDS: methADONE HCl 20 MG/2 ML ORAL.CONC 60 MG PO (08:35)
[2023-03-14] MEDS: Acetaminophen 325 MG TABLET 650 MG PO (08:43)
[2023-03-14] MEDS: Nicotine Polacrilex Lozenge 4 MG LOZENGE BUCCAL ×2 (08:49→11:00)
[2023-03-14] MEDS: guaiFENesin LA 600 MG TAB.ER.12H PO (08:49)
[2023-03-14] MEDS: Throat Lozenge, Medicated LOZENGE 1 LOZENGE MUCOUS MEM ×2 (09:16→13:38)
[2023-03-14] MEDS: Ibuprofen 800 MG TABLET PO ×2 (09:59→21:29)
[2023-03-14] MEDS: Ondansetron ODT 4 MG TAB.RAPDIS TRANSLINGU ×2 (11:00→18:28)
[2023-03-14] MEDS: hydrOXYzine HCL 50 MG TABLET PO (11:28)
[2023-03-14] MEDS: Milk of Magnesia 30 ML ORAL.SUSP PO (13:38)
[2023-03-14] MEDS: Dicyclomine HCl 10 MG CAPSULE PO (13:38)
[2023-03-14 20:05] VITALS: BP 103/57; PULSE 70; RESP 20; TEMP 36.6; O2SAT 97
[2023-03-14] MEDS: Mirtazapine 15 MG TABLET 45 MG PO (21:28)
[2023-03-14] MEDS: traZODone HCL 50 MG TABLET 150 MG PO (21:29)
[2023-03-14] MEDS: Benztropine Mesylate 0.5 MG TABLET PO (21:29)
[2023-03-14] MEDS: cloNIDine HCL 0.1 MG TABLET PO (21:30)
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
[2023-03-15 08:00] VITALS: BP 101/62; PULSE 62; RESP 16; TEMP 36.3; O2SAT 97
[2023-03-15] MEDS: Nicotine 21 MG PATCH.TD24 TRANSDERMA (08:32)
[2023-03-15] MEDS: methADONE HCl 20 MG/2 ML ORAL.CONC 65 MG PO (08:34)
[2023-03-15] MEDS: FLUoxetine HCl 20 MG CAPSULE 40 MG PO (08:47)
[2023-03-15] MEDS: Topiramate 25 MG TABLET PO (08:48)
[2023-03-15] MEDS: ARIPiprazole 10 MG TABLET PO (08:49)
[2023-03-15] MEDS: Multivitamin TABLET 1 TAB PO (08:49)
[2023-03-15] MEDS: hydrOXYzine HCL 25 MG TABLET PO (08:50)
[2023-03-15] MEDS: Ibuprofen 800 MG TABLET PO (08:50)
[2023-03-15] MEDS: Ascorbic Acid 250 MG TABLET PO (08:50)
[2023-03-15] MEDS: Nicotine Polacrilex Lozenge 4 MG LOZENGE BUCCAL (09:34)
[2023-03-22 09:17] LABS: RPR Quantitative Non-Reactive (Nonreactive); T.Pallidum Particle Agg Test Reactive (Nonreactive)
== END 2023-03-15 10:20 | DRG 751 ==
LOC: HO.ED 03-05 08:05 → HO.PADLT16 03-05 15:02
PROVIDERS: Emergency Medicine; Psychiatry & Neurology Psychiatry; Admitting Provider Psychiatry & Neurology Psychiatry; Emergency Provider Emergency Medicine Emergency Medical Services; Visit Provider Psychiatry & Neurology Psychiatry
DX: F32.3 Major depressive disorder, single episode, severe with psychotic features (principal); R45.851 Suicidal ideations; F19.94 Other psychoactive substance use, unspecified with psychoactive substance-induced mood disorder; F14.13 Cocaine abuse, unspecified with withdrawal; F17.210 Nicotine dependence, cigarettes, uncomplicated; F11.20 Opioid dependence, uncomplicated; Z71.6 Tobacco abuse counseling; F10.90 Alcohol use, unspecified, uncomplicated; Z20.822 Contact with and (suspected) exposure to COVID-19; Z79.899 Other long term (current) drug therapy
CPT/HCPCS: 0353U; 36415; 73600; 73620; 80053; 80307; 81001; 81025; 85025; 86592; 86780; 87086; 87389; 87635; 93005; 97161; 99285; S9485

== ENCOUNTER → 2023-03-05 14:39 | Outpatient (BNV) | payer OTHER, SELFPAY | PROVIDERS: Admitting Provider Psychiatry & Neurology Psychiatry; Emergency Provider Emergency Medicine Emergency Medical Services; Visit Provider Psychiatry & Neurology Psychiatry | DX: F32.3 Major depressive disorder, single episode, severe with psychotic features (principal); F14.10 Cocaine abuse, uncomplicated; F11.90 Opioid use, unspecified, uncomplicated; F10.90 Alcohol use, unspecified, uncomplicated; F17.200 Nicotine dependence, unspecified, uncomplicated; F19.94 Other psychoactive substance use, unspecified with psychoactive substance-induced mood disorder | CPT/HCPCS: 99231; 99232 ==

== ENCOUNTER → 2023-03-05 14:39 | Outpatient (BNV) | payer OTHER, SELFPAY | PROVIDERS: Admitting Provider Psychiatry & Neurology Psychiatry; Emergency Provider Emergency Medicine Emergency Medical Services; Visit Provider Psychiatry & Neurology Psychiatry | DX: F32.3 Major depressive disorder, single episode, severe with psychotic features (principal); F14.10 Cocaine abuse, uncomplicated; F11.90 Opioid use, unspecified, uncomplicated; F10.90 Alcohol use, unspecified, uncomplicated; F19.94 Other psychoactive substance use, unspecified with psychoactive substance-induced mood disorder; F17.200 Nicotine dependence, unspecified, uncomplicated | CPT/HCPCS: 90792; 99231; 99232; 99239 ==

== ENCOUNTER 2023-10-30 11:28 | Inpatient (IN) | payer OTHER, SELFPAY ==
--- NOTE | ~2023-10-30 | CT_ITS ---
EXAMINATION: CT HAND WITH CONTRAST, RIGHT CLINICAL INFORMATION: Deep space infection. Swelling. COMPARISON: None available. TECHNIQUE: Axial images through the right hand following 85 mL Omnipaque 350 IV contrast. Sagittal and coronal reconstructions on the technologist's workstation were performed. This CT examination was performed using dose optimization techniques as appropriate, variously including the following: *Automated exposure control *Adjustment of mA and/or kV according to patient size (this includes techniques or standardized protocols for targeted exams where dose is matched to indication/reason for exam; i.e. extremities or head) *Use of iterative reconstruction technique This CT examination was performed using dose optimization techniques as appropriate, variously including the following: *Automated exposure control *Adjustment of mA and/or kV according to patient size (this includes techniques or standardized protocols for targeted exams where dose is matched to indication/reason for exam; i.e. extremities or head) *Use of iterative reconstruction technique DLP: 121 mGy-cm. FINDINGS: There is a fluid collection seen adjacent to the dorsal shaft of the 2nd metacarpal bone extending into the web space between the 1st and 2nd digits. This abuts the bone. This measures 3.5 x 2 x 4 cm in transverse AP and longitudinal dimension and has a slightly thickened enhancing wall. Appearance is suggestive of an abscess. This appears to involve the 1st dorsal interosseous muscle and may involve some of the 2nd dorsal interosseous muscle. There is diffuse subcutaneous edema and skin thickening and increased vascularity. Bone alignment is normal. No fracture or dislocation. No x-ray evidence of osteomyelitis. Joint spaces are normal. No evidence of septic arthritis. No foreign body seen. CT/CT hand RT w IV con IMPRESSION: Fluid collection adjacent to the shaft of the 2nd metacarpal bone probably involving the 1st dorsal interosseous muscle and possibly some of the 2nd dorsal interosseous muscle. Diffuse subcutaneous edema, skin thickening and hyperemia.
--- NOTE | ~2023-10-30 | XR_ITS ---
EXAMINATION: XR HAND, RIGHT CLINICAL INFORMATION: Pain and swelling after injecting cocaine. COMPARISON: None available. TECHNIQUE: PA, lateral, and oblique views of the right hand. FINDINGS: Diffuse soft tissue swelling is evident in the hand and wrist. Bone mineralization is normal. No fracture or malalignment. Joint spaces are normal. No erosions. No soft tissue calcifications. No radiodense foreign bodies or subcutaneous gas. XR/XR hand RT min 3V IMPRESSION: Diffuse soft tissue swelling in the hand and wrist. No acute osseous findings.
--- NOTE | 2023-10-30 11:41 | ED.GENADULT ---
HPI - General Adult General Chief complaint: Skin/Abscess/Foreign Body Stated complaint: Abscess R hand Time Seen by Provider: 10/30/23 18:06 Source: patient Mode of arrival: ambulatory Limitations: no limitations History of Present Illness ED Provider: gildardo DONALDSON narrative: Patient IVDA cocaine user noticed swelling of the right dorsum of the hand after patient missed the vein about a week ago gradual is getting worse comes here with significant swelling of the dorsum of the right hand with difficulty in flexing fingers both active and passive with increased pain no fever no chills patient does have history of MRSA in the past Related Data Home Medications ?Medication ?Instructions ?Recorded ?Confirmed gabapentin 300 mg capsule 300 mg PO BID 10/30/23 10/30/23 lorazepam 0.5 mg tablet 0.5 mg PO BID PRN anxiety 10/30/23 10/30/23 methadone 10 mg/mL oral 70 mg PO DAILY 10/30/23 concentrate (Methadone Intensol) Allergies Allergy/AdvReac Type Severity Reaction Status Date / Time Penicillins [PENICILLINS] Allergy Unknown THROAT Verified 10/30/23 11:43 CLOSES haloperidol AdvReac Severe pharingeal Verified 10/30/23 11:43 dystonia Review of Systems Review of Systems: Yes all other systems are reviewed and are negative PMFSH Past Medical History Medical History Substance induced mood disorder Opioid use disorder Drug-induced psychotic disorder Asthma Social History Social History Household Members: None Household Members Other:: Had roommate, moved out, lived in tent for @1 wk, went to detox. Housing: Homeless Housing Other:: patient stays in car Do you presently have visiting nurse or other home services: No Alcohol intake: current Alcohol intake frequency: does not drink Patient Tobacco Use Status: Current everyday Tobacco user Tobacco use type: Cigarette Cigarette Packs Per Day: 0 Cigarettes Per Day: 0 Years Smoked: 10 e-Cigarette/Vaping Use: Former Use Second Hand Smoke Exposure: Yes Substance Use Type: Crack/Cocaine, Heroin, IV Drugs and Marijuana Advance Directives Date on File: 03/05/22 service: No Sexual orientation: Don't Know Physical Exam ED Vital Signs: Vital Signs - 24 hr 10/30/23 11:43 10/30/23 16:43 10/30/23 18:05 Temperature 99.1 F 97.2 F 99.0 F Pulse Rate 87 82 91 Respiratory Rate 16 16 20 Blood Pressure 104/52 L 116/59 L 127/64 Pulse Oximetry 96 99 99 Oxygen Delivery Method Room Air Room Air Room Air BMI result Body Mass Index 41.3 Appearance: Alert. Oriented X3. Obese Eyes: No pallor or icterus ENT: Pharynx normal. Oral Mucosa moist Neck: Normal inspection. Neck supple. CVS: Normal heart rate and rhythm. Pulses normal. Respiratory: No respiratory distress. Equal air entry bilateral, no wheezing/rales/rhonchi Abdomen: Soft and nontender. Bowel sounds are present, no mass palpable, no CVA tenderness Skin: Skin warm and dry. Normal skin color. Normal skin turgor. Extremities: No lower extremity edema. No calf tenderness right hand with significant swelling on the dorsum of the hand with both active and passive painful index finger movement neurovascular intact Neuro: Oriented X 3. No motor deficit. Course Course Course Narrative: This is a rapid medical exam performed by Patti Musa NP: Additional HPI, ROS, PE not included below will be deferred to primary provider. Patient is a 27-year-old female with history of substance use disorder presenting to the ED with complaint of right hand erythema, swelling, pain for the past week. States began after injecting cocaine into the area. Denies drainage. Denies fevers but reports fatigue. Significant swelling to hand and fingers, limited ROM to fingers and wrist. 2+ radial pulse, cap refill <3 seconds. Plan: labs, xray Medications Administered Generic Name Dose Route Start Last Admin Trade Name Freq PRN Reason Stop Dose Admin Ibuprofen 600 mg 10/30/23 23:54 10/31/23 00:18 Ibuprofen 600 Mg Tablet PO 600 mg Q6H PRN Administration Pain, Severe (Pain Scale 7-10) Sodium Chloride 3 ml 10/31/23 00:00 10/31/23 01:04 0.9 % Sodium Chloride Flush 3 Ml Syringe IVFLUSH Not Given QSHIFT JOHN Discontinued Medications Generic Name Dose Route Start Last Admin Trade Name Freq PRN Reason Stop Dose Admin Sodium Chloride 1,000 mls @ 999 mls/hr 10/30/23 18:16 10/30/23 23:41 Ns IV 10/30/23 19:16 Infused .Q1H1M ONE Infusion Vancomycin HCl 2,000 mg in 500 mls @ 250 mls/hr 10/30/23 18:17 10/30/23 23:40 Vancomycin/Ns IV 10/30/23 20:16 Infused ONCE ONE Infusion Piperacillin Sod/Tazobactam 100 mls @ 200 mls/hr 10/30/23 18:23 10/30/23 23:40 Sod 4.5 gm/ Sodium Chloride IV 10/30/23 18:52 Infused ONCE ONE Infusion Ibuprofen 600 mg 10/30/23 16:46 10/30/23 18:17 Ibuprofen 600 Mg Tablet PO 10/30/23 16:47 600 mg ONCE ONE Administration Iohexol 85 ml 10/30/23 20:20 10/30/23 20:20 Iohexol 350 Mg/Ml 100 Ml Infus..Btl IV 10/30/23 20:21 85 ml ONCE ONE Administration Morphine Sulfate 4 mg 10/30/23 18:41 10/30/23 19:44 Morphine Sulfate 4 Mg/Ml Cartridge IVPUSH 10/30/23 18:42 4 mg ONCE ONE Administration Protocol Ondansetron HCl 4 mg 10/30/23 18:41 10/30/23 19:43 Ondansetron Hcl 4 Mg/2 Ml Vial IVPUSH 10/30/23 18:42 4 mg ONCE ONE Administration Procedures Abscess I/D Site: hand Side (if applicable): right Local Anesthetic: lidocaine 1% Amount of anesthesia used (mL): 5 Technique: incised with blade Amount of fluid expressed (mL): 10 Sent for culture/gram staining?: Yes Irrigation: Yes Packing used?: none Medical Decision Making Medical Decision Making [facility] Narrative: Patient IVDA user with significant swelling of the right and CT scan showed fluid collection I and D was done and pus removed sent for culture started on IV vancomycin Zosyn will admit patient for further evaluation orthopedic aware plan to take her to OR for further debridement Differential Diagnosis Differential Diagnoses: The differential diagnosis associated with the presentation includes Abscess/tenosynovitis/cellulitis/necrotizing fascitis Consult Healthcare Provider Management of the patient was discussed with: Hospitalist Lab Data MDM Lab Attestation statement: I reviewed the patient's lab results. 10/30/23 15:13 10/30/23 15:13 Labs: Lab Results 10/30/23 10/30/23 Range/Units 15:13 19:33 WBC 9.7 (4.8-10.8) X10*3/uL RBC 4.20 (4.20-5.50) X10*6/uL Hgb 10.7 L (12.0-16.0) g/dl Hct 33.2 L (37.0-47.0) % MCV 79.0 L (80.0-98.0) fL MCH 25.5 L (27.0-33.0) pg MCHC 32.2 (31.0-35.0) g/dl RDW 13.7 (11.0-16.0) % Plt Count 223 (160-400) X10*3/uL MPV 10.7 (9.4-12.3) fL Immature Gran % (Auto) 0.4 (0.0-0.4) % Neut % (Auto) 70.7 (45-73) % Lymph % (Auto) 19.4 L (20-40) % [place] % (Auto) 8.0 (2-11) % Eos % (Auto) 1.2 (0-4) % Baso % (Auto) 0.3 (0-2) % Lymph # (Auto) 1.9 (1.2-4.9) X10*3/uL [place] # (Auto) 0.8 (0.1-1.2) X10*3/uL Eos # (Auto) 0.1 (0.0-0.4) X10*3/uL Baso # (Auto) 0.0 (0.0-0.2) X10*3/uL Abs Immat Gran (auto) 0.04 H (0.00-0.03) X10*3/uL Absolute Neuts (auto) 6.9 (2.0-8.3) x10*3/uL Absolute Nucleated RBC 0.000 (0.0-0.012) X10*3/uL Nucleated RBC % (auto) 0.0 (0.0-0.2) /100WBC ESR 59 H (0-20) MM/HR Sodium 135 (135-145) mmol/L Potassium 4.9 (3.3-5.1) mmol/L Chloride 104 (96-108) mmol/L Carbon Dioxide 25 (22-29) mmol/L Anion Gap 11 L (12-20) BUN 7 L (9-16) mg/dL Creatinine 0.72 (0.5-1.4) mg/dL Estim Creat Clear Calc 139.1 Estimated GFR > 60 Random Glucose 97 (60-115) mg/dL Lactic Acid 0.6 (0.5-2.0) mmol/L Calcium 9.3 (8.4-10.2) mg/dL Total Bilirubin 0.4 (0.0-1.0) mg/dL AST 19 (5-31) U/L ALT 14 (0-31) U/L Alkaline Phosphatase 85 (39-117) U/L C-Reactive Protein 12.35 H (< or = 0.50) mg/dL Total Protein 7.9 (6.5-8.0) g/dL Albumin 3.6 (3.5-5.0) g/dL Independent Interpretation I performed an independent interpretation of an: CT Scan Radiology Impression Discussion of test interpretation with radiology: I have reviewed the radiologist's reading. Radiologist Impression: [place] [id number] CT Scan Report Signed Patient: Abby Pires MR#: [id number] : 1995 Acct:[id number] Age/Sex: 27 / F ADM Date: 10/30/23 Loc: .S3 372-[address]: Fredi Tavares MD Ordering Physician: Justin Gan MD Date of Service: 10/30/23 Procedure(s): CT hand RT w IV con Accession Number(s): [id number] cc: Physician,None ; Justin Gan MD~ EXAMINATION: CT HAND WITH CONTRAST, RIGHT CLINICAL INFORMATION: Deep space infection. Swelling. COMPARISON: None available. TECHNIQUE: Axial images through the right hand following 85 mL Omnipaque 350 IV contrast. Sagittal and coronal reconstructions on the technologist's workstation were performed. This CT examination was performed using dose optimization techniques as appropriate, variously including the following: *Automated exposure control *Adjustment of mA and/or kV according to patient size (this includes techniques or standardized protocols for targeted exams where dose is matched to indication/reason for exam; i.e. extremities or head) *Use of iterative reconstruction technique This CT examination was performed using dose optimization techniques as appropriate, variously including the following: *Automated exposure control *Adjustment of mA and/or kV according to patient size (this includes techniques or standardized protocols for targeted exams where dose is matched to indication/reason for exam; i.e. extremities or head) *Use of iterative reconstruction technique DLP: 121 mGy-cm. FINDINGS: There is a fluid collection seen adjacent to the dorsal shaft of the 2nd metacarpal bone extending into the web space between the 1st and 2nd digits. This abuts the bone. This measures 3.5 x 2 x 4 cm in transverse AP and longitudinal dimension and has a slightly thickened enhancing wall. Appearance is suggestive of an abscess. This appears to involve the 1st dorsal interosseous muscle and may involve some of the 2nd dorsal interosseous muscle. There is diffuse subcutaneous edema and skin thickening and increased vascularity. Bone alignment is normal. No fracture or dislocation. No x-ray evidence of osteomyelitis. Joint spaces are normal. No evidence of septic arthritis. No foreign body seen. CT/CT hand RT w IV con IMPRESSION: Fluid collection adjacent to the shaft of the 2nd metacarpal bone probably involving the 1st dorsal interosseous muscle and possibly some of the 2nd dorsal interosseous muscle. Diffuse subcutaneous edema, skin thickening and hyperemia. Dictated By: Lu Pavon MD Signed By: <Electronically signed by Lu Pavon MD in OV> Critical Care Time Critical Care Time Critical Care Time: Yes Total Critical Care Time: 55 Attestation: The patient was critically ill with a high probability of imminent or life threatening deterioration. I spent greater than 60???minutes of discontinuous time evaluating the patient,delivering critical care at the bedside, discussing and evaluating pertinent data with consultants. Critical care time does not include time spent performing separately billable procedures or teaching. Total time spent performing critical care was ?55??minutes. Discharge Plan Discharge Clinical Impression: Abscess of right hand, Cellulitis of right hand Patient Disposition: Admitted As Inpatient Interventions: Admission Worksheet (ED) Last Done: 10/30/23 23:42 Discharge Date/Time: 10/31/23 00:23
[2023-10-30 11:43] VITALS: BP 104/52; PULSE 87; RESP 16; TEMP 37.3; O2SAT 96; BMI 41.3
--- NOTE | 2023-10-30 12:16 | MHC.EDTECH ---
At this time unable to obtain Labs. Pt is a hard stick with a lot of scar tissue.
[2023-10-30 15:18] LABS: MANUAL DIFF FLAG NO
[2023-10-30 15:43] LABS: Alanine Aminotransferase 14 U/L (0-31); Albumin Level 3.6 g/dL (3.5-5.0); Alkaline Phosphatase 85 U/L (39-117); Anion Gap 11 (12-20); Aspartate Amino Transferase 19 U/L (5-31); Bilirubin Total 0.4 mg/dL (0.0-1.0); Blood Urea Nitrogen 7 mg/dL (9-16); C Reactive Protein 12.35 mg/dL (< or = 0.50); Calcium 9.3 mg/dL (8.4-10.2); Carbon Dioxide 25 mmol/L (22-29); Chloride 104 mmol/L (96-108); Creatinine Clr Calc Pharmacy 139.1; Estimated Glomerular Filt Rate > 60; Glucose Random 97 mg/dL (60-115); Potassium 4.9 mmol/L (3.3-5.1); Sodium 135 mmol/L (135-145); Total Protein 7.9 g/dL (6.5-8.0)
[2023-10-30 15:54] LABS: Basophils Percent Auto 0.3 % (0-2); Eosinophils Absolute Auto 0.1 X10*3/uL (0.0-0.4); Eosinophils Percent Auto 1.2 % (0-4); Hematocrit 33.2 % (37.0-47.0); Hemoglobin 10.7 g/dl (12.0-16.0); Imm Gran Abs Auto 0.04 X10*3/uL (0.00-0.03); Imm Gran Pct Auto 0.4 % (0.0-0.4); Lymphocytes Absolute Auto 1.9 X10*3/uL (1.2-4.9); Lymphocytes Percent Auto 19.4 % (20-40); Mean Corpuscular HGB Conc 32.2 g/dl (31.0-35.0); Mean Corpuscular Hemoglobin 25.5 pg (27.0-33.0); Mean Platelet Volume 10.7 fL (9.4-12.3); Monocytes Absolute Auto 0.8 X10*3/uL (0.1-1.2); Neutrophils Absolute Auto 6.9 x10*3/uL (2.0-8.3); Neutrophils Percent Auto 70.7 % (45-73); Platelet Count 223 X10*3/uL (160-400); Red Cell Distribution Width 13.7 % (11.0-16.0); White Blood Count 9.7 X10*3/uL (4.8-10.8)
[2023-10-30 16:43] VITALS: BP 116/59; PULSE 82; RESP 16; TEMP 36.2; O2SAT 99
[2023-10-30 18:05] VITALS: BP 127/64; PULSE 91; RESP 20; TEMP 37.2; O2SAT 99
[2023-10-30] MEDS: Ibuprofen 600 MG TABLET PO (18:17)
[2023-10-30] MEDS: vancomycin/NS 2,000 MG/500 ML PLAST..BAG 250 MG IV (19:43)
[2023-10-30] MEDS: ondansetron HCL 4 MG/2 ML VIAL IVPUSH (19:43)
[2023-10-30] MEDS: Piperacillin Sodium/Tazobactam 4.5 GM in 0.9 % Sodium Chloride 100 ML IV (19:43)
[2023-10-30] MEDS: 0.9 % Sodium Chloride 1,000 ML 999 ML IV (19:44)
[2023-10-30] MEDS: Morphine Sulfate 4 MG/ML CARTRIDGE IVPUSH (19:44)
[2023-10-30 19:52] LABS: Lactic Acid 0.6 mmol/L (0.5-2.0)
[2023-10-30] MEDS: iohexoL 350 MG/ML 100 ML INFUS..BTL 85 ML IV (20:20)
[2023-10-30 20:32] LABS: Erythrocyte Sedimentation Rate 59 MM/HR (0-20)
--- NOTE | 2023-10-30 22:08 | PHA.MEDREC ---
Pharmacy Consult ? Medication Reconciliation Pharmacy has completed the medication reconciliation. Spoke to patient to confirm med list. patient states she only on Gabapentin 300 mg bid, Lorazepam 0.5 mg bid, and Methadone 70 mg daily has to be verified by methadone clinic in [place] on [address] [facility]
[2023-10-30 22:51] VITALS: BP 120/64; PULSE 78; RESP 20; TEMP 37.1; O2SAT 98
--- NOTE | 2023-10-30 23:47 | P.HPHOSP_ITS ---
History of Present Illness Date of Service: 10/30/23 Attending physician on admission: Fredi Tavares Chief Complaint: Right hand swelling Abby Pires is 27 years old woman with past medical history significant for IV drug use on methadone to emergency department complaining of worsening right hand swelling over the last week. She denied associated pain but has lesion with head movement. He denied any fever or chills. She also denied chest pain, shortness of breath or tachycardia. With she did not report any acute gastrointestinal or genitourinary symptoms. Denied alcohol abuse. She is a tobacco smoker. In the ED, she was found to have normal vital signs. Blood workup showed no leukocytosis. There is no lactic acidosis. CRP is markedly elevated. Hemoglobin is 10.7 and around baseline. There is no thrombocytopenia. Electrolytes are unremarkable. Creatinine is 0.72. Right hand x-ray showed diffuse soft tissue swelling and wrist without bones changes. Right hand CT scan was performed but results are still pending. According to ED provider case was discussed with Orthopedic Service recommended admission and keep patient NPO for procedure in the morning. ED tx: Motrin 600 mg p.o., NS 1 L bolus, vancomycin 2 g IV, morphine 4 mg IV, IV contrast, Zosyn 4.5 g IV Review of Systems 2 Review of Systems: All 12 systems were reviewed and normal except as noted in HPI. [facility] Medical History Substance induced mood disorder Opioid use disorder Drug-induced psychotic disorder Asthma Social History Household Members: None Household Members Other:: Had roommate, moved out, lived in tent for @1 wk, went to detox. Housing: Homeless Do you presently have visiting nurse or other home services: No Alcohol intake: current Alcohol intake frequency: does not drink Patient Tobacco Use Status: Current someday Tobacco user Tobacco use type: Cigarette Cigarette Packs Per Day: 1 Cigarettes Per Day: 20.0 Years Smoked: unknown Smoked in Last 30 Days: Yes e-Cigarette/Vaping Use: Currently Using Second Hand Smoke Exposure: Yes Substance Use Type: Crack/Cocaine and Heroin Last Used Substance: Just Prior to Admission Advance Directives: No Advance Directives Date on File: 03/05/22 Patient : No service: No Sexual orientation: Don't Know Meds Allergies Allergy/AdvReac Type Severity Reaction Status Date / Time Penicillins [PENICILLINS] Allergy Unknown THROAT Verified 10/30/23 11:43 CLOSES haloperidol AdvReac Severe pharingeal Verified 10/30/23 11:43 dystonia Active Medications: Current Medications Piperacillin Sod/Tazobactam (Sod 3.375 gm/ Sodium Chloride) 50 mls @ 100 mls/hr IV Q6H [facility] Vancomycin HCl 1,250 mg/ (Sodium Chloride) 250 mls @ 166.667 mls/hr IV Q12H [facility] Pharmacy Consult (Consult Rx Vancomycin Dosing) 1 each MISCELLANE DAILY PRN PRN Reason: Consult order Sodium Chloride (0.9 % Sodium Chloride Flush 3 Ml Syringe) 3 ml IVFLUSH QSHIFT [facility] Home Medications ?Medication ?Instructions ?Recorded ?Confirmed ?Last Taken ?Type gabapentin 300 mg capsule 300 mg PO BID 10/30/23 10/30/23 Unknown History lorazepam 0.5 mg tablet 0.5 mg PO BID PRN anxiety 10/30/23 10/30/23 Unknown History methadone 10 mg/mL oral 70 mg PO DAILY 10/30/23 Unknown History concentrate (Methadone Intensol) Physical Exam 2 Vital Signs and Narrative: Vital Signs: Last Vital Signs Temp 98.7 F 10/30/23 22:51 Pulse 78 10/30/23 22:51 Resp 20 10/30/23 22:51 BP 120/64 10/30/23 22:51 Pulse Ox 98 10/30/23 22:51 O2 Del Method Room Air 10/30/23 22:51 BMI result Body Mass Index 41.3 Constitutional - Awake and Alert, No apparent distress. Obese. HEENT - Pupils equally round. Normal sclerae. Heart - S1S2, RRR, No no murmur Lungs - Normal lung expansion, Normal respiratory effort, No respiratory distress, CTA bilaterally Abdomen - NT / ND; +BS; No rebound or guarding Extremities - right hand: see ED note pic. Markedly swollen and erythematous. No tenderness. When able to make a fist appropriately. Finger extension is limited. Multiple needle track garcia noted. Musculoskeletal - Normal inspection, normal ROM Skin - Warm/Dry Neurological - Alert & oriented x3. Focal weakness grossly noted. Normal speech. Psychological - Appropriate affect Results Labs 10/30/23 15:13 10/30/23 15:13 Labs: Laboratory Results - last 24 hr 10/30/23 10/30/23 15:13 19:33 MCV 79.0 L MCH 25.5 L MCHC 32.2 RDW 13.7 Plt Count 223 MPV 10.7 Immature Gran % (Auto) 0.4 Neut % (Auto) 70.7 Lymph % (Auto) 19.4 L [place] % (Auto) 8.0 Eos % (Auto) 1.2 Baso % (Auto) 0.3 Lymph # (Auto) 1.9 [place] # (Auto) 0.8 Eos # (Auto) 0.1 Baso # (Auto) 0.0 Abs Immat Gran (auto) 0.04 H Absolute Neuts (auto) 6.9 Absolute Nucleated RBC 0.000 Nucleated RBC % (auto) 0.0 ESR 59 H Anion Gap 11 L Estim Creat Clear Calc 139.1 Estimated GFR > 60 Random Glucose 97 Lactic Acid 0.6 Calcium 9.3 Total Bilirubin 0.4 AST 19 ALT 14 Alkaline Phosphatase 85 C-Reactive Protein 12.35 H Total Protein 7.9 Albumin 3.6 Imaging Radiologist's Impressions: Impressions Hand X-Ray 10/30/23 11:58 IMPRESSION: Diffuse soft tissue swelling in the hand and wrist. No acute osseous findings. Assessment and Plan (1) Cellulitis of right hand: Status: Acute (2) Abscess of right hand: Status: Acute Plan Abby Pires is 27 y/o woman admitted with: * Right arm cellulitis, abscess and sinovitis. Admit to hospitalist service. Continue empiric IV antibiotic therapy with vancomycin and Zosyn. NPO after midnight. During the interim of this admission I was informed that ED provider decide to perform an incision and drainage. Patient was advised to stop using IV drug use, she was informed and aware about the risk of continuing using IV drugs including limb amputation and . * Chronic anemia. Continue to monitor hemoglobin. * Obesity. BMI 40.3 kg/m2. * IV drug abuse. Continue methadone after verification with patient's clinic. Code status: Full DVT prophylaxis: Early ambulation Patient will need hospitalizations for at least 2 midnights for IV antibiotic therapy and evaluation by orthopedic service for abscess drainage. Quality Stroke Does the patient have a stroke diagnosis?: No VTE Prior VTE?: No VTE Risk Level:: Medical - moderate - high VTE Device Contraindication: Treatment Not Indicated VTE Drug Contraindication: Treatment Not Indicated
[2023-10-31] VITALS (11 sets, daily range): BP systolic 103–158; BP diastolic 50–89; PULSE 68–89; RESP 14–20; TEMP 36.2–37.1; O2SAT 94–100
[2023-10-31] MEDS: Ibuprofen 600 MG TABLET PO (00:18)
--- NOTE | 2023-10-31 06:05 | HE.PHANOTE ---
METHADONE Dose: 70 mg, last dosed on 10/30/23 @1030 per [facility] Manda Grover RN.
[2023-10-31] MEDS: methADONE HCl 20 MG/2 ML ORAL.CONC 70 MG PO (08:01)
[2023-10-31] MEDS: 0.9 % Sodium Chloride Flush 3 ML SYRINGE IVFLUSH ×2 (08:01→16:28)
[2023-10-31] MEDS: Gabapentin 300 MG CAPSULE PO (08:01)
[2023-10-31] MEDS: LORazepam 0.5 MG TABLET PO (08:01)
[2023-10-31] MEDS: vancomycin HCL 1,250 MG in 0.9 % Sodium Chloride 250 ML 166.67 MG IV (08:07)
--- NOTE | 2023-10-31 09:16 | P.CONOP_ITS ---
History of Present Illness HPI Consult date: 10/31/23 <ANTONINO Pena - Last Filed: 10/31/23 09:49> Chief complaint: Rigth hand cellultitis <ANTONINO Pena - Last Filed: 10/31/23 09:49> Narrative: Patient is a 27-year-old woman who presented to the emergency room yesterday for complaints of severe erythema and swelling on the dorsal aspect of her right hand, which was thought to be an abscess. The patient reports that this began approximately 4 days ago, when she injected cocaine into her hand. While in the emergency department, CT scan was obtained, and the patient was found to have a fluid collection adjacent to the 2nd metacarpal on the dorsal aspect of the right hand, particularly in the 1st webspace. An I and D was performed in the ED, and the patient was started on IV vancomycin and Zosyn. Today, the patient reports that she feels the area is a lot smaller than it was yesterday, and feels that this is due to having the area drained. She reports that she is still experiencing significant pain, particularly on the dorsal aspect of her hand. The patient reports that she is still unable to make a fist, but is able to move her fingers to some degree. She reports that since the I and D, she has experienced significant amounts of drainage from the area. Patient is known to have history of MRSA. <ANTONINO Pena - Last Filed: 10/31/23 09:49> Review of Systems 2 Review of Systems: Yes all other systems are reviewed and are negative < ANTONINO Pena - Last Filed: 10/31/23 09:49> [facility] Past Medical History Medical History: Medical History Substance induced mood disorder Opioid use disorder Drug-induced psychotic disorder Asthma <ANTONINO Pena - Last Filed: 10/31/23 09:49> Social History Social History: Social History Household Members: None Household Members Other:: Had roommate, moved out, lived in tent for @1 wk, went to detox. Housing: Homeless Housing Other:: patient stays in car Do you presently have visiting nurse or other home services: No Alcohol intake: current Alcohol intake frequency: does not drink Patient Tobacco Use Status: Current everyday Tobacco user Tobacco use type: Cigarette Cigarette Packs Per Day: 0 Cigarettes Per Day: 0 Years Smoked: 10 e-Cigarette/Vaping Use: Former Use Second Hand Smoke Exposure: Yes Substance Use Type: Crack/Cocaine, Heroin, IV Drugs and Marijuana Advance Directives Date on File: 03/05/22 service: No Sexual orientation: Don't Know <ANTONINO Pena - Last Filed: 10/31/23 09:49> Meds Allergies/Adverse reactions: Allergies Allergy/AdvReac Type Severity Reaction Status Date / Time Penicillins [PENICILLINS] Allergy Unknown THROAT Verified 10/30/23 11:43 CLOSES haloperidol AdvReac Severe pharingeal Verified 10/30/23 11:43 dystonia <ANTONINO Pena - Last Filed: 10/31/23 09:49> Active Medications: Current Medications Gabapentin (Gabapentin 300 Mg Capsule) 300 mg PO BID [facility] Last Admin: 10/31/23 08:01 Dose: 300 mg Piperacillin Sod/Tazobactam (Sod 3.375 gm/ Sodium Chloride) 50 mls @ 100 mls/hr IV Q6H [facility] Last Admin: 10/31/23 07:05 Dose: Not Given Vancomycin HCl 1,250 mg/ (Sodium Chloride) 250 mls @ 166.667 mls/hr IV Q12H [facility] Last Admin: 10/31/23 08:07 Dose: 166.67 mls/hr Ibuprofen (Ibuprofen 600 Mg Tablet) 600 mg PO Q6H PRN PRN Reason: Pain, Severe (Pain Scale 7-10) Last Admin: 10/31/23 00:18 Dose: 600 mg Lorazepam (Lorazepam 0.5 Mg Tablet) 0.5 mg PO BID PRN PRN Reason: anxiety Last Admin: 10/31/23 08:01 Dose: 0.5 mg Methadone HCl (Methadone Hcl 20 Mg/2 Ml Oral.Conc) 70 mg PO DAILY [facility] Last Admin: 10/31/23 08:01 Dose: 70 mg Pharmacy Consult (Consult Rx Vancomycin Dosing) 1 each MISCELLANE DAILY PRN PRN Reason: Consult order Sodium Chloride (0.9 % Sodium Chloride Flush 3 Ml Syringe) 3 ml IVFLUSH QSHIFT [facility] Last Admin: 10/31/23 08:01 Dose: 3 ml <ANTONINO Pena Last Filed: 10/31/23 09:49> Home medications: Home Medications ?Medication ?Instructions ?Recorded ?Confirmed ?Last Taken ?Type gabapentin 300 mg capsule 300 mg PO BID 10/30/23 10/30/23 Unknown History lorazepam 0.5 mg tablet 0.5 mg PO BID PRN anxiety 10/30/23 10/30/23 Unknown History methadone 10 mg/mL oral 70 mg PO DAILY 10/30/23 10/31/23 Unknown History concentrate (Methadone Intensol) <ANTONINO Pena Last Filed: 10/31/23 09:49> Physical Exam 2 Vital Signs: Vital Signs: Last Vital Signs Temp 97.3 F 10/31/23 08:00 Pulse 72 10/31/23 08:00 Resp 16 10/31/23 08:00 BP 119/76 10/31/23 08:00 Pulse Ox 98 10/31/23 08:00 O2 Del Method Room Air 10/31/23 08:00 BMI result Body Mass Index 41.3 <ANTONINO Pena Last Filed: 10/31/23 09:49> Const: Other: Patient is alert, oriented, cooperative, and in no acute distress <ANTONINO Pena - Last Filed: 10/31/23 09:49> HEENT: Head: Yes normocephalic and Yes atraumatic <ANTONINO Pena - Last Filed: 10/31/23 09:49> Resp: Effort & Inspection: normal respiratory effort and able to speak in complete sentences <ANTONINO Pena Last Filed: 10/31/23 09:49> Cardio: Jugular venous distension: no JVD <ANTONINO Pena - Last Filed: 10/31/23 09:49> Neuro: General: gait normal <ANTONINO Pena Last Filed: 10/31/23 09:49> Cognition (Neuro): normal cognition <ANTONINO Pena Last Filed: 10/31/23 09:49> Extrem: Other: Patient is awake and in no acute distress. After taking down the dressing, there is a approximately 2.5 cm incision over the dorsal aspect of the 1st webspace. There is significant drainage on the dressing, and when the dressing is removed active drainage resumes from the wound, which is bloody and purulent. The area around the incision has become macerated. There is significant erythema and swelling over the majority of the dorsal aspect of the hand, moving into the fingers. Patient is able to flex and extend at the DIP and PIP joints, however flexion at the MCP joints is extremely limited and painful. Patient is also able to move the wrist without difficulty. After exam, new dressing was applied. <ANTONINO Pena - Last Filed: 10/31/23 09:49> Psych: Appearance: grossly normal <ANTONINO Pena - Last Filed: 10/31/23 09:49> Mental Status: mental status grossly normal <ANTONINO Pena - Last Filed: 10/31/23 09:49> Results Labs Result Diagrams: 10/30/23 15:13 10/30/23 15:13 <ANTONINO Pena - Last Filed: 10/31/23 09:49> Labs: Abnormal lab results 10/30/23 10/30/23 Range/Units 15:13 19:33 Hgb 10.7 L (12.0-16.0) g/dl Hct 33.2 L (37.0-47.0) % MCV 79.0 L (80.0-98.0) fL MCH 25.5 L (27.0-33.0) pg Lymph % (Auto) 19.4 L (20-40) % Abs Immat Gran (auto) 0.04 H (0.00-0.03) X10*3/uL ESR 59 H (0-20) MM/HR Anion Gap 11 L (12-20) BUN 7 L (9-16) mg/dL C-Reactive Protein 12.35 H (< or = 0.50) mg/dL H & H 10/30/23 Range/Units 15:13 Hgb 10.7 L (12.0-16.0) g/dl Hct 33.2 L (37.0-47.0) % All other labs normal. <ANTONINO Pena Last Filed: 10/31/23 09:49> Diagnostic results Wrist/Hand CT: report reviewed and image reviewed <ANTONINO Pena Last Filed: 10/31/23 09:49> Assessment and Plan (1) Abscess of right hand: Status: Acute <ANTONINO Pena - Last Filed: 10/31/23 09:49> (2) Cellulitis of right hand: Status: Acute <ANTONINO Pena - Last Filed: 10/31/23 09:49> At this time, the plan is for the patient to be brought to the OR this afternoon for irrigation and debridement of her right hand under anesthesia with Dr. Garcia. Patient is NPO currently. Patient will continue with current IV antibiotics. <ANTONINO Pena - Last Filed: 10/31/23 09:49> Procedures Date of Service Date of Service: 10/31/23 <ANTONINO Pena - Last Filed: 10/31/23 09:49> 10/31/23 <Sahra Garcia MD - Last Filed: 10/31/23 09:54>
--- NOTE | 2023-10-31 09:53 | MHC.CM.PN ---
PT REPORTS SHE IS HOMELESS AND INDEPENDENT WITH CARE SHE HAS NO DME SHE GETS HER METHADONE IN [place], HOWEVER CANNOT PROVIDE THE NAME OF THE CLINIC PT DOES NOT HAVE A HCP OR PCP AND IS NOT INTERESTED IN ASSISTANCE WITH EITHER SHE IS ALSO NOT INTERESTED IN [facility] OR [facility] PT WILL DC BACK TO HER CAR PER HER PREFERENCE
--- NOTE | 2023-10-31 09:54 | W.PM.OPN ---
Operative Note Operative Note Date of Service: 10/31/23 Narrative: Operative Note Narrative: Preop diagnosis: Right hand infection/abscesses secondary to IV drug use Postop diagnosis: Same Procedure: Right hand I&D dorsal, and I and D radial deep palmar space Surgeon: Sahra Garcia MD Anesthesia: General Anesthesia plus regional block Findings: Creamy yellow purulence from the dorsal aspect of the right hand Implants: Iodoform gauze drains x2 Tourniquet time: 11 minutes EBL: 5.0 ml Specimen: Cultures x2 Drains: None Complications: None Disposition: Brought to the recovery room in stable condition Plan: Admit back to floor for IV antibiotics Pull drains tomorrow morning, and change dressing Check cultures Indications: The patient is a 27 year old woman with a bad right hand infection related to IV drug use with cocaine . The risks and benefits of operative treatment, including but not limited to risk of damage to blood vessels, nerves, tendons, infection, recurrence, persistent pain or numbness, incomplete resolution of preoperative symptoms, or need for further surgery were discussed with the patient and they wished to proceed with surgery. Procedure: Once consent was obtained patient was brought back to the operating suite and placed in the operating table in a supine position. A regional block was performed by the anesthesia team. Perioperative antibiotics and anesthesia was administered by the anesthesia team. A tourniquet was applied to the proximal aspect of the right upper extremity and the limb was prepped and draped in a standard surgical fashion. The limb was elevated and the tourniquet inflated to 250 mm of mercury for a total tourniquet time of 11 minutes. She had chunky creamy yellow purulence coming out of the 1 cm wound over the dorsal aspect of the right 1st webspace. I then extended this incision to make it about 2.5 cm using a 15. Blade. I then dissected across the dorsal aspect of the hand as there was a significant abscess cavity in this area. I added a 2 cm longitudinal incision over the dorsal aspect of the 4th metacarpal in line with the fairly recently healed incision from what I would guess was a prior I&D. Both incisions were made through the skin the subcutaneous tissues. Again I dissected into the subcutaneous tissue in the abscess cavity. The abscess cavity passed across most of the dorsum of the right hand and then over the dorsal aspect of the 1st metacarpal. Cultures were taken. A 2nd set of cultures were taken from this dorsal cavity. As she had significant swelling over the radial palmar aspect of her hand, I then passed from dorsal to volar with a hemostat and made a 2 cm slightly curved incision in line with the most distal aspect of the thenar crease. The hemostat was able to pass through this volar incision is well. This allowed for drainage of the radial deep palmar space. I did not see any new purulence in this area. At this point the wounds were copiously irrigated with normal saline with fluid flowing from dorsal radial to the palmar wound and then from dorsal radial to the dorsal ulnar wound. Once satisfied with our irrigation and debridement I passed a loop of quarter-inch iodoform gauze from the palmar incision to the dorsal radial incision. I passed a 2nd loop of quarter-inch iodoform gauze from the dorsal ulnar incision to the dorsal radial incision. This was done to facilitate drainage tonight. At this point the tourniquet was deflated and hemostasis obtained with a brief period of local pressure The wound was copiously irrigated with normal saline. The wound was infiltrated with some 1% lidocaine with epinephrine for postop pain control and a sterile dressing was applied. [ splint ] The patient appears to have tolerated the procedure well and with no complications. All digits were well vascularized conclusion of the case.
[2023-10-31 10:50] LABS: UPreg QC Valid YES; Urine Pregnancy NEGATIVE (NEGATIVE)
[2023-10-31 11:16] LABS: Creatinine Clr Calc Pharmacy 161.6; Estimated Glomerular Filt Rate > 60
[2023-10-31 11:24] LABS: HCG Quantitative < 2 mIU/mL
--- NOTE | 2023-10-31 12:32 | MHC.SHP ---
Pre-Procedural Eval Section A - 24 Hr Update-Section A only Date of Service: 10/31/23 The patient is an INPATIENT: No Changes since office visit: No Cold of Flu in the past 2 weeks, No New Medical Problems, No Changes in Medication and No Patient answered all questions The patient has been examined within 24 hours of the surgical procedure. The History & Physical has been completed within 30 days and I have reviewed it.: Yes Section B - Complete if H&P > 30 days Chief Complaint: Rigth hand cellultitis Allergies: Allergies Allergy/AdvReac Type Severity Reaction Status Date / Time Penicillins [PENICILLINS] Allergy Unknown THROAT Verified 10/30/23 11:43 CLOSES haloperidol AdvReac Severe pharingeal Verified 10/30/23 11:43 dystonia Exam Exam Comment: Right hand infection status post IV drug use Plan Diagnosis/Plan: Unchanged I have reviewed the history and physical and performed a pertinent physical examination on my patient. No changes have occurred unless specified. Time Spent With Patient Time: Total time managing care of this patient today ____ minutes.
--- NOTE | 2023-10-31 12:43 | PC.NURSE ---
pt reports that she lives in car, every other week injects cocaine and heroin, was taking methadone at a low dose at same time of cocaine injection. reports does receive effect of cocaine and heroin while on methadone and plans to increase methadone.
--- NOTE | 2023-10-31 15:03 | HO.ANESPROP2 ---
HPI - Anesthesia Eval Consult details Narrative: right hand I and D PMFSH Active Problems Active Problems: All Active Problems Abscess of right hand (Acute) Cellulitis of right hand (Acute) Major depression with psychotic features (Acute) Nicotine dependence (Acute) Alcohol use disorder (Acute) Cocaine use disorder (Acute) MDD (major depressive disorder), recurrent episode, moderate (Acute) Drug-induced psychotic disorder (Acute) Opioid use disorder (Acute) Asthma (Acute) Past Medical History Medical History Substance induced mood disorder Opioid use disorder Drug-induced psychotic disorder Asthma Family History Family history of problems with anesthesia: No Surgical History History of Problems with Anesthesia: No Social History Social History Household Members: None Household Members Other:: Had roommate, moved out, lived in tent for @1 wk, went to detox. Housing: Homeless Housing Other:: patient stays in car Do you presently have visiting nurse or other home services: No Alcohol intake: current Alcohol intake frequency: does not drink Patient Tobacco Use Status: Current everyday Tobacco user Tobacco use type: Cigarette Cigarette Packs Per Day: 0 Cigarettes Per Day: 5 Years Smoked: 10 e-Cigarette/Vaping Use: Former Use Second Hand Smoke Exposure: Yes Substance Use Type: Crack/Cocaine, Heroin, IV Drugs and Marijuana Advance Directives Date on File: 03/05/22 service: No Sexual orientation: Don't Know Meds Allergies Allergy/AdvReac Type Severity Reaction Status Date / Time Penicillins [PENICILLINS] Allergy Unknown Hives Verified 10/31/23 12:46 haloperidol AdvReac Severe Anaphylaxis Verified 10/31/23 12:46 Active Medications: Current Medications Fentanyl (Fentanyl Citrate/Pf 100 Mcg/2 Ml Vial) 25 mcg IVPUSH Q5M PRN; Protocol PRN Reason: Pain, Moderate(Pain Scale 4-6) Stop: 10/31/23 21:02 Gabapentin (Gabapentin 300 Mg Capsule) 300 mg PO BID [facility] Last Admin: 10/31/23 08:01 Dose: 300 mg Piperacillin Sod/Tazobactam (Sod 3.375 gm/ Sodium Chloride) 50 mls @ 100 mls/hr IV Q6H [facility] Last Admin: 10/31/23 07:05 Dose: Not Given Vancomycin HCl 1,250 mg/ (Sodium Chloride) 250 mls @ 166.667 mls/hr IV Q12H [facility] Last Infusion: 10/31/23 09:41 Dose: Infused Ibuprofen (Ibuprofen 600 Mg Tablet) 600 mg PO Q6H PRN PRN Reason: Pain, Severe (Pain Scale 7-10) Last Admin: 10/31/23 00:18 Dose: 600 mg Lorazepam (Lorazepam 0.5 Mg Tablet) 0.5 mg PO BID PRN PRN Reason: anxiety Last Admin: 10/31/23 08:01 Dose: 0.5 mg Methadone HCl (Methadone Hcl 20 Mg/2 Ml Oral.Conc) 70 mg PO DAILY [facility] Last Admin: 10/31/23 08:01 Dose: 70 mg Ondansetron HCl (Ondansetron Hcl 4 Mg/2 Ml Vial) 4 mg IVPUSH ONCE PRN PRN Reason: Nausea and Vomiting Stop: 10/31/23 21:02 Pharmacy Consult (Consult Rx Vancomycin Dosing) 1 each MISCELLANE DAILY PRN PRN Reason: Consult order Sodium Chloride (0.9 % Sodium Chloride Flush 3 Ml Syringe) 3 ml IVFLUSH QSDCFT [facility] Last Admin: 10/31/23 08:01 Dose: 3 ml Home Medications ?Medication ?Instructions ?Recorded ?Confirmed ?Last Taken ?Type gabapentin 300 mg capsule 300 mg PO BID 10/30/23 10/30/23 Unknown History lorazepam 0.5 mg tablet 0.5 mg PO BID PRN anxiety 10/30/23 10/30/23 Unknown History methadone 10 mg/mL oral 70 mg PO DAILY 10/30/23 10/31/23 Unknown History concentrate (Methadone Intensol) Exam Height,Weight and Vital Signs: Height 5 ft 4 in Weight 109.1 kg Last Vital Signs Temp 98.7 F 10/31/23 12:19 Pulse 75 10/31/23 12:19 Resp 18 10/31/23 12:19 BP 121/64 10/31/23 12:19 Pulse Ox 97 10/31/23 12:19 O2 Del Method Room Air 10/31/23 12:19 Pertinent Lab Results Pertinent Lab Results: Laboratory Tests 10/30/23 10/30/23 10/31/23 15:13 19:33 06:17 WBC 9.7 RBC 4.20 Hgb 10.7 L Hct 33.2 L MCV 79.0 L MCH 25.5 L MCHC 32.2 RDW 13.7 Plt Count 223 MPV 10.7 Immature Gran % (Auto) 0.4 Neut % (Auto) 70.7 Lymph % (Auto) 19.4 L [place] % (Auto) 8.0 Eos % (Auto) 1.2 Baso % (Auto) 0.3 Lymph # (Auto) 1.9 [place] # (Auto) 0.8 Eos # (Auto) 0.1 Baso # (Auto) 0.0 Abs Immat Gran (auto) 0.04 H Absolute Neuts (auto) 6.9 Absolute Nucleated RBC 0.000 Nucleated RBC % (auto) 0.0 ESR 59 H Hold Purple Top Sodium 135 Potassium 4.9 Chloride 104 Carbon Dioxide 25 Anion Gap 11 L BUN 7 L Creatinine 0.72 Estim Creat Clear Calc 139.1 Estimated GFR > 60 Random Glucose 97 Lactic Acid 0.6 Calcium 9.3 Total Bilirubin 0.4 AST 19 ALT 14 Alkaline Phosphatase 85 C-Reactive Protein 12.35 H Total Protein 7.9 Albumin 3.6 Beta HCG, Quant Urine Test NEGATIVE 10/31/23 10:17 WBC RBC Hgb Hct MCV MCH MCHC RDW Plt Count MPV Immature Gran % (Auto) Neut % (Auto) Lymph % (Auto) [place] % (Auto) Eos % (Auto) Baso % (Auto) Lymph # (Auto) [place] # (Auto) Eos # (Auto) Baso # (Auto) Abs Immat Gran (auto) Absolute Neuts (auto) Absolute Nucleated RBC Nucleated RBC % (auto) ESR Hold Purple Top SEE NOTE Sodium Potassium Chloride Carbon Dioxide Anion Gap BUN Creatinine 0.62 Estim Creat Clear Calc 161.6 Estimated GFR > 60 Random Glucose Lactic Acid Calcium Total Bilirubin AST ALT Alkaline Phosphatase C-Reactive Protein Total Protein Albumin Beta HCG, Quant < 2 Urine Test Airway Mallampati Class: III TM Dist: >3cm Neck ROM: Full Heart: rrr Lungs: cta Assessment and Plan Assessment Anesthesia Assessment: Anesthesia Plan Discussed and Chart Reviewed Final Anesthetic Review Family History of Problems with Anesthesia: No History of Problems with Anesthesia: No NPO: Yes ASA Class: III and Emergency Final Preanesthetic Review: No Changes in Pt Med Stat, Meds/Allgs Chart Reviewed, Consent Obtained/Reviewed and Anes Risks/Benef Reviewed Patient Risk: Intermediate Procedure Risk: Low Anesthetic Plan Anesthetic Plan: GA Disposition: Standard PACU
--- NOTE | 2023-10-31 15:32 | P.PNIM_ITS ---
Subjective Subjective Date of Service: 10/31/23 Interval History: right hand cellulitis Review of Systems has pain and swelling of hand no fever or chills Physical Exam 2 Vital Signs: Vital Signs: Last Vital Signs Temp 98 F 10/31/23 15:30 Pulse 85 10/31/23 15:30 Resp 16 10/31/23 15:30 BP 158/78 H 10/31/23 15:30 Pulse Ox 98 10/31/23 15:30 O2 Del Method Room Air 10/31/23 15:30 BMI result Body Mass Index 41.3 In Appearance: Alert.? Oriented X3.? cvs: rrr, [id number] , no murmur res: clear to auscultation ,no rhonchii or wheezing abd: no rebound or guarding ,nt, bs present. ext pulses present , no cyanosis . right hand-swelling/pain neuro: axo3 , nonfocal. Objective Data Active Medications Fentanyl (Fentanyl Citrate/Pf 100 Mcg/2 Ml Vial) 25 mcg IVPUSH Q5M PRN; Protocol PRN Reason: Pain, Moderate(Pain Scale 4-6) Stop: 10/31/23 21:02 Gabapentin (Gabapentin 300 Mg Capsule) 300 mg PO BID [facility] Last Admin: 10/31/23 08:01 Dose: 300 mg Documented By: JIGNESH Piperacillin Sod/Tazobactam (Sod 3.375 gm/ Sodium Chloride) 50 mls @ 100 mls/hr IV Q6H [facility] Last Admin: 10/31/23 07:05 Dose: Not Given Documented By: JIGNESH Non-Admin Reason: pt allergies to penicillin Vancomycin HCl 1,250 mg/ (Sodium Chloride) 250 mls @ 166.667 mls/hr IV Q12H [facility] Last Infusion: 10/31/23 09:41 Dose: Infused Documented By: JIGNESH Ibuprofen (Ibuprofen 600 Mg Tablet) 600 mg PO Q6H PRN PRN Reason: Pain, Severe (Pain Scale 7-10) Last Admin: 10/31/23 00:18 Dose: 600 mg Documented By: ALFIE Lorazepam (Lorazepam 0.5 Mg Tablet) 0.5 mg PO BID PRN PRN Reason: anxiety Last Admin: 10/31/23 08:01 Dose: 0.5 mg Documented By: JIGNESH Methadone HCl (Methadone Hcl 20 Mg/2 Ml Oral.Conc) 70 mg PO DAILY [facility] Last Admin: 10/31/23 08:01 Dose: 70 mg Documented By: JIGNESH Ondansetron HCl (Ondansetron Hcl 4 Mg/2 Ml Vial) 4 mg IVPUSH ONCE PRN PRN Reason: Nausea and Vomiting Stop: 10/31/23 21:02 Pharmacy Consult (Consult Rx Vancomycin Dosing) 1 each MISCELLANE DAILY PRN PRN Reason: Consult order Sodium Chloride (0.9 % Sodium Chloride Flush 3 Ml Syringe) 3 ml IVFLUSH QSHIFT [facility] Last Admin: 10/31/23 08:01 Dose: 3 ml Documented By: JIGNESH Labs 10/30/23 15:13 10/31/23 10:17 Labs: Laboratory Results - last 24 hr 10/30/23 10/30/23 10/31/23 15:13 19:33 06:17 MCV 79.0 L MCH 25.5 L MCHC 32.2 RDW 13.7 Plt Count 223 MPV 10.7 Immature Gran % (Auto) 0.4 Neut % (Auto) 70.7 Lymph % (Auto) 19.4 L [place] % (Auto) 8.0 Eos % (Auto) 1.2 Baso % (Auto) 0.3 Lymph # (Auto) 1.9 [place] # (Auto) 0.8 Eos # (Auto) 0.1 Baso # (Auto) 0.0 Abs Immat Gran (auto) 0.04 H Absolute Neuts (auto) 6.9 Absolute Nucleated RBC 0.000 Nucleated RBC % (auto) 0.0 ESR 59 H Hold Purple Top Anion Gap 11 L Estim Creat Clear Calc 139.1 Estimated GFR > 60 Random Glucose 97 Lactic Acid 0.6 Calcium 9.3 Total Bilirubin 0.4 AST 19 ALT 14 Alkaline Phosphatase 85 C-Reactive Protein 12.35 H Total Protein 7.9 Albumin 3.6 Beta HCG, Quant Urine Test NEGATIVE 10/31/23 10:17 MCV MCH MCHC RDW Plt Count MPV Immature Gran % (Auto) Neut % (Auto) Lymph % (Auto) [place] % (Auto) Eos % (Auto) Baso % (Auto) Lymph # (Auto) [place] # (Auto) Eos # (Auto) Baso # (Auto) Abs Immat Gran (auto) Absolute Neuts (auto) Absolute Nucleated RBC Nucleated RBC % (auto) ESR Hold Purple Top SEE NOTE Anion Gap Estim Creat Clear Calc 161.6 Estimated GFR > 60 Random Glucose Lactic Acid Calcium Total Bilirubin AST ALT Alkaline Phosphatase C-Reactive Protein Total Protein Albumin Beta HCG, Quant < 2 Urine Test Assessment and Plan (1) Abscess of right hand: Status: Acute (2) Cellulitis of right hand: Status: Acute Plan 27 y/o woman admitted with: Right arm cellulitis, abscess and sinovitis. esr 59, Crp is 12 CT/CT hand RT w IV con IMPRESSION: Fluid collection adjacent to the shaft of the 2nd metacarpal bone probably involving the 1st dorsal interosseous muscle and possibly some of the 2nd dorsal interosseous muscle. Diffuse subcutaneous edema, skin thickening and hyperemia. culture blood/hand pending Continue empiric IV antibiotic therapy with vancomycin and Zosyn. NPO after midnight. continue renal function electrolyte monitoring, orthopedic consult. Chronic anemia. Continue to monitor hemoglobin. morbid Obesity. BMI 40.3 kg/m2.: So the also encouraged to lose weight ,cut down calories. IV drug abuse. Continue methadone . Ongoing hospitalization need: Right arm cellulitis/abscess-needs IV antibiotics, I and D,, renal function electrolyte monitoring and vanco trough monitoring, blood culture and hand culture also pending Quality Stroke Does the patient have a stroke diagnosis?: No VTE Prior VTE?: No VTE Risk Level:: Medical - moderate - high VTE Device Contraindication: Treatment Not Indicated VTE Drug Contraindication: Treatment Not Indicated
--- NOTE | 2023-10-31 19:02 | P.EN_ITS ---
Event Note Date of Service: 10/31/23 Event Note: The patient decided to leave AM. 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 she insisted on leaving and said she will call tomorrow to follow with the surgeon. Time Spent With Patient Time: Total time managing care of this patient today ____ minutes.
[2023-10-31 19:19] LABS: Vancomycin Random 5.4 mcg/mL (15-20)
--- NOTE | 2023-11-01 12:59 | P.DS_ITS ---
DS: Providers Provider Date of Service: 10/31/23 Date of admission: 10/30/23 21:49 Date of discharge: 10/31/23 Primary care physician: None Physician Consults: 10/31/23 00:09 Consult to Orthopedics Routine Consulting Provider: [facility] Reason for consultation: Right hand abscess Has provider been notified: Yes Attending physician on discharge: Spencer Guillory Discharging clinician: Spencer Guillory DS: Diagnosis Discharge Diagnosis (1) Abscess of right hand: Status: Acute (2) Cellulitis of right hand: Status: Acute DS: Summary Hospital Course Hospital Course: 27 years old woman with past medical history significant for IV drug use on methadone to emergency department complaining of worsening right hand swelling over the last week. She denied associated pain but has lesion with head movement. He denied any fever or chills. She also denied chest pain, shortness of breath or tachycardia. With she did not report any acute gastrointestinal or genitourinary symptoms. Denied alcohol abuse. She is a tobacco smoker. In the ED, she was found to have normal vital signs. Blood workup showed no leukocytosis. There is no lactic acidosis. CRP is markedly elevated. Hemoglobin is 10.7 and around baseline. There is no thrombocytopenia. Electrolytes are unremarkable. Creatinine is 0.72. Right hand x-ray showed diffuse soft tissue swelling and wrist without bones changes. Right hand CT scan was performed but results are still pending. According to ED provider case was discussed with Orthopedic Service recommended admission and keep patient NPO for procedure in the morning. ED tx: Motrin 600 mg p.o., NS 1 L bolus, vancomycin 2 g IV, morphine 4 mg IV, IV contrast, Zosyn 4.5 g IV. Hospital course: Patient came with right arm cellulitis, IVDU: No leukocytosis, CRP of 12.35, ESR 59, blood cultures sent, lactic acid normal- Patient was started on IV antibiotics, orthopedic consulted: Procedure- Right hand I&D dorsal, and I and D radial deep palmar space was done by orthopedic, afterwards patient decided to leave against medical advice. Risk of leaving against medical advice discussed with her-please ShereenR Alexandra note from . po doxycycline 100 m po bid for 7 days . Assessment and plan coordination time spent 40 minute. Time Attestation Total time managing care of this patient today: 40 mintues. Discharge Coordination Time (in mins): 40 min. Quality: Safe Use of Opioids Does Pt have an Active Cancer Diagnosis on the Problem List?: No Quality: Stroke Does the patient have a stroke diagnosis?: No Physical Exam Vital Signs: Vital Signs: Last Vital Signs Temp 98 F 10/31/23 16:15 Pulse 80 10/31/23 16:15 Resp 16 10/31/23 16:15 BP 150/81 H 10/31/23 16:15 Pulse Ox 97 10/31/23 16:15 O2 Del Method Room Air 10/31/23 16:15 BMI result Body Mass Index 41.3 left ama . DS: Data Data Completed and Pending Labs on day of discharge: Laboratory Results - last 24 hr 10/31/23 18:11 Random Vancomycin 5.4 L Preliminary micro results at discharge 10/31/23 Unknown Routine Culture - Preliminary Hand Right No growth to date. 10/31/23 Unknown Routine Culture - Preliminary Hand Right No growth to date. 10/30/23 19:33 Blood Culture - Preliminary Blood - Venous No growth after 24 hours. 10/30/23 19:33 Blood Culture - Preliminary Blood - Venous No growth after 24 hours. Imaging Chest x-ray: Radiologist's impression: ITS Impressions Hand X-Ray 10/30/23 11:58 IMPRESSION: Diffuse soft tissue swelling in the hand and wrist. No acute osseous findings. Hand CT 10/30/23 20:24 IMPRESSION: Fluid collection adjacent to the shaft of the 2nd metacarpal bone probably involving the 1st dorsal interosseous muscle and possibly some of the 2nd dorsal interosseous muscle. Diffuse subcutaneous edema, skin thickening and hyperemia. Discharge Plan Discharge Patient Disposition: Left Against Medical Advice Discharge Diagnosis: Abscess, Cellulitis, IVDU Referrals: Physician,None [Primary Care Provider] - 1 Week Discharge Medications: New doxycycline hyclate 100 mg capsule 100 mg PO BID Qty: 14 0RF Continued lorazepam 0.5 mg tablet 0.5 mg PO BID PRN (Reason: anxiety) gabapentin 300 mg capsule 300 mg PO BID methadone [Methadone Intensol] 10 mg/mL Concentrate 70 mg PO DAILY Discharge Orders: Discharge Order (Routine); Ordered 10/31/23 Ordered By: Spencer Guillory Diet: Advance to usual diet Activity on Discharge: As tolerated Print Language: [place] Islander Care Plan Goals: Patient came with right arm cellulitis, IVDU: No leukocytosis, CRP of 12.35, ESR 59, blood cultures sent, lactic acid normal- Patient was started on IV antibiotics, orthopedic consulted: Procedure- Right hand I&D dorsal, and I and D radial deep palmar space was done by orthopedic, afterwards patient decided to leave against medical advice. Risk of leaving against medical advice discussed with her-please seeDR Alexandra note from . po doxycycline 100 m po bid for 7 days . Health Concerns: as above . Plan of Treatment: as above. Assessment: as above. Discharge Date/Time: 10/31/23 18:56
== END 2023-10-31 18:56 | disposition left against medical advice (07) | DRG 364 ==
LOC: HO.ED 18:05 → HO.EDOVER 21:55 → HO.S3 23:18
PROVIDERS: Anesthesiology; Orthopaedic Surgery; Registered Nurse Emergency; Admitting Provider Internal Medicine; Emergency Provider Internal Medicine; Visit Provider Internal Medicine
PROC: 0JBJ0ZZ Excision of Right Hand Subcutaneous Tissue and Fascia, Open Approach (ICD-10-PCS; CPT 26025; principal; 2023-10-31 12:50)
DX: L02.511 Cutaneous abscess of right hand (principal); E66.01 Morbid (severe) obesity due to excess calories; M65.141 Other infective (teno)synovitis, right hand; F11.20 Opioid dependence, uncomplicated; L03.113 Cellulitis of right upper limb; F17.210 Nicotine dependence, cigarettes, uncomplicated; G89.18 Other acute postprocedural pain; Z59.02 Unsheltered homelessness; Z71.6 Tobacco abuse counseling; Z68.41 Body mass index [BMI] 40.0-44.9, adult; Z79.899 Other long term (current) drug therapy
CPT/HCPCS: 26025; 36415; 73130; 73201; 80053; 80202; 81025; 82565; 83605; 84702; 85025; 85652; 86140; 87040; 87070; 87205; 99221; 99285; J0665; J1100; J2270; J2405; J2543; J2704; J2795; J3010; J3370; J3371; Q9967

== ENCOUNTER → 2023-10-30 21:49 | Outpatient (BNV) | payer OTHER, SELFPAY | PROVIDERS: Admitting Provider Internal Medicine; Emergency Provider Internal Medicine; Visit Provider Internal Medicine | DX: L02.511 Cutaneous abscess of right hand (principal); L03.113 Cellulitis of right upper limb | CPT/HCPCS: 99222; 99232; 99239; 99499 ==

== ENCOUNTER → 2023-10-30 21:49 | Outpatient (BNV) | payer OTHER, SELFPAY | PROVIDERS: Admitting Provider Internal Medicine; Emergency Provider Internal Medicine; Visit Provider Orthopaedic Surgery | DX: L03.113 Cellulitis of right upper limb (principal); L02.511 Cutaneous abscess of right hand | CPT/HCPCS: 26025; 99223 ==

== ENCOUNTER 2023-11-02 19:54 | Inpatient (IN) | payer OTHER, SELFPAY ==
--- NOTE | ~2023-11-02 | CT_ITS ---
EXAMINATION: CT HAND WITH CONTRAST, RIGHT CLINICAL INFORMATION: pain COMPARISON: Right hand CT 10/30/2023 TECHNIQUE: Helical CT performed through the right hand after the uneventful administration of 85 mL of Omnipaque 350 intravenous contrast. Sagittal and coronal reformats were obtained. This CT examination was performed using dose optimization techniques as appropriate, variously including the following: *Automated exposure control *Adjustment of mA and/or kV according to patient size (this includes techniques or standardized protocols for targeted exams where dose is matched to indication/reason for exam; i.e. extremities or head) *Use of iterative reconstruction technique DLP: 138 mGy-cm FINDINGS: Diffuse soft tissue edema throughout the hand and extending up the visualized forearm, improved from prior. No organized fluid collection to suggest residual abscess or hematoma. There is diffuse skin thickening predominantly involving the dorsal aspect of the palm Dorsolateral skin defect along the second metacarpal corresponding with surgical debridement site. There are 2 small foci of soft tissue gas along the palmar aspect of the distal forearm, new from prior. Patent vasculature. No acute fracture, malalignment or osseous. No radiopaque foreign body. CT/CT hand RT w IV con IMPRESSION: 1. Diffuse soft tissue edema throughout the hand and forearm, improved from prior. No organized fluid collection to suggest residual abscess or hematoma. 2. There are 2 small foci of soft tissue gas along the palmar aspect of the distal forearm which are new from prior and possibly postsurgical.
[2023-11-02 20:12] VITALS: BP 140/89; PULSE 89; RESP 17; TEMP 36.9; O2SAT 99; BMI 27.6
[2023-11-02 20:59] LABS: MANUAL DIFF FLAG NO
--- NOTE | 2023-11-02 21:07 | ED_ITS ---
HPI - General Adult General Chief complaint: General Medical Stated complaint: Needs dressing changed Time Seen by Provider: 11/02/23 21:07 Source: patient, RN notes reviewed and old records reviewed Mode of arrival: ambulatory Limitations: no limitations History of Present Illness ED Provider: Coral DONALDSON narrative: 27-year-old female with past medical history significant for IV drug abuse. The patient presented to the ER 4 days ago for a hand abscess. She had a bedside I and D and was admitted for IV antibiotics. Dr. Garcia, hand surgery brought the patient to the OR for washout on 10/31/2023 The patient left against medical advice later that night She reports that she has not been on any antibiotics despite being prescribed doxycycline upon leaving against medical advice She reports increasing pain, swelling, redness starting today Denies any fevers Related Data Home Medications ?Medication ?Instructions ?Recorded ?Confirmed gabapentin 300 mg capsule 300 mg PO BID 10/30/23 10/30/23 lorazepam 0.5 mg tablet 0.5 mg PO BID PRN anxiety 10/30/23 10/30/23 methadone 10 mg/mL oral 70 mg PO DAILY 10/30/23 10/31/23 concentrate (Methadone Intensol) Allergies Allergy/AdvReac Type Severity Reaction Status Date / Time Penicillins [PENICILLINS] Allergy Unknown Hives Verified 11/02/23 20:14 haloperidol AdvReac Severe Anaphylaxis Verified 11/02/23 20:14 Review of Systems 2 Constitutional: Constitutional: Denies body ache(s), Denies chills and Denies fever(s) Cardiovascular: Cardiovascular: Denies chest pain and Denies dyspnea Respiratory: Respiratory: Denies cough and Denies dyspnea Gastrointestinal: Gastrointestinal: Denies abdominal pain, Denies nausea and Denies vomiting Musculoskeletal: Musculoskeletal: Denies back pain Integumentary/Breasts: Skin/Breast: Reports erythema, Reports rash, Reports skin swelling and Reports wounds PMFSH Past Medical History Medical History Substance induced mood disorder Opioid use disorder Drug-induced psychotic disorder Asthma Social History Social History Household Members: None Household Members Other:: Had roommate, moved out, lived in tent for @1 wk, went to detox. Housing: Homeless Housing Other:: patient stays in car Do you presently have visiting nurse or other home services: No Alcohol intake: current Alcohol intake frequency: does not drink Patient Tobacco Use Status: Current everyday Tobacco user Tobacco use type: Cigarette Cigarette Packs Per Day: 0 Cigarettes Per Day: 5 Years Smoked: 10 e-Cigarette/Vaping Use: Former Use Second Hand Smoke Exposure: Yes Substance Use Type: Crack/Cocaine, Heroin, IV Drugs and Marijuana Advance Directives: No Advance Directives Information Provided: No Advance Directives Date on File: 03/05/22 Do you have a plan to hurt others: No Plan service: No Sexual orientation: Don't Know Physical Exam ED Vital Signs: Vital Signs - 24 hr 11/02/23 20:12 Temperature 98.5 F Pulse Rate 89 Respiratory Rate 17 Blood Pressure 140/89 H Pulse Oximetry 99 Oxygen Delivery Method Room Air BMI result Body Mass Index 27.6 Const General: healthy appearing, comfortable, no acute distress, alert and awake Nutritional Appearance: well nourished Orientation/consciousness: patient oriented x3 HENMT Head: Yes normocephalic and Yes atraumatic Eyes Eyelids: Yes eyelids normal Conjunctivae: conjunctivae normal Sclerae: sclerae normal Corneas: corneas normal Pupils: Equal, round and reactive pupils present EOM: EOMs intact bilaterally Neck Neck: Yes full ROM Resp Effort & Inspection: normal respiratory effort, able to speak in complete sentences and not labored Skin Other: Patient has 2 surgical wounds there through and through to the right hand. There is packing in place. The right hand is markedly edematous with surrounding erythema. There is minimal yellowish purulent drainage from the right hand. She is reduced range of motion with flexion of the right 2nd and 3rd fingers. General skin exam: elasticity normal Neuro General: patient oriented x3 Cranial nerves: Yes Equal, round and reactive pupils present and Yes Bilaterally intact EOM present Cognition (Neuro): normal cognition Medical Decision Making Medical Decision Making MDM Narrative: Patient evaluated, her hand is markedly edematous, she only received IV antibiotics for about 24 hours prior to leaving against medical advice. I removed the iodoform gauze dressings. Plan to admit to the medical service for continued IV antibiotics. The patient is not septic, vital signs are stable. She has no fever, no white count, she is normotensive. After discussion with the hospitalist, Dr. Zarate, he recommended repeat imaging of the right hand which was ordered. Reviewed the patient's blood cultures from most recent visit which were negative. I also reviewed the wound culture from the OR which showed Streptococcus viridans Differential Diagnosis Differential Diagnoses: The differential diagnosis associated with the presentation includes Right hand abscess Right hand cellulitis Osteomyelitis Tenosynovitis Admission/Observation Consideration of admission/observation: Escalation of care including admission/observation considered Patient requires admission for IV antibiotics Lab Data MDM Lab Attestation statement: I reviewed the patient's lab results. No leukocytosis. The patient has a mild anemia consistent with her baseline. No electrolyte abnormalities. 11/02/23 20:54 11/02/23 20:54 Labs: Lab Results 11/02/23 Range/Units 20:54 WBC 5.7 (4.8-10.8) X10*3/uL RBC 3.94 L (4.20-5.50) X10*6/uL Hgb 10.0 L (12.0-16.0) g/dl Hct 30.7 L (37.0-47.0) % MCV 77.9 L (80.0-98.0) fL MCH 25.4 L (27.0-33.0) pg MCHC 32.6 (31.0-35.0) g/dl RDW 13.6 (11.0-16.0) % Plt Count 250 (160-400) X10*3/uL MPV 10.7 (9.4-12.3) fL Immature Gran % (Auto) 0.5 H (0.0-0.4) % Neut % (Auto) 55.4 (45-73) % Lymph % (Auto) 30.4 (20-40) % [place] % (Auto) 9.2 (2-11) % Eos % (Auto) 3.6 (0-4) % Baso % (Auto) 0.9 (0-2) % Lymph # (Auto) 1.7 (1.2-4.9) X10*3/uL [place] # (Auto) 0.5 (0.1-1.2) X10*3/uL Eos # (Auto) 0.2 (0.0-0.4) X10*3/uL Baso # (Auto) 0.1 (0.0-0.2) X10*3/uL Abs Immat Gran (auto) 0.03 (0.00-0.03) X10*3/uL Absolute Neuts (auto) 3.1 (2.0-8.3) x10*3/uL Absolute Nucleated RBC 0.000 (0.0-0.012) X10*3/uL Nucleated RBC % (auto) 0.0 (0.0-0.2) /100WBC Sodium 140 (135-145) mmol/L Potassium 3.8 D (3.3-5.1) mmol/L Chloride 106 (96-108) mmol/L Carbon Dioxide 25 (22-29) mmol/L Anion Gap 13 (12-20) BUN 10 (9-16) mg/dL Creatinine 0.68 (0.5-1.4) mg/dL Estim Creat Clear Calc 119.4 Estimated GFR > 60 Random Glucose 118 H (60-115) mg/dL Calcium 8.7 D (8.4-10.2) mg/dL Total Bilirubin 0.3 (0.0-1.0) mg/dL AST 14 (5-31) U/L ALT 14 (0-31) U/L Alkaline Phosphatase 86 (39-117) U/L Total Protein 7.1 (6.5-8.0) g/dL Albumin 3.3 L (3.5-5.0) g/dL Discharge Plan Discharge Clinical Impression: Abscess of hand, right Patient Disposition: Admitted As Inpatient Prescriptions: No Action lorazepam 0.5 mg tablet 0.5 mg PO BID PRN (Reason: anxiety) gabapentin 300 mg capsule 300 mg PO BID methadone [Methadone Intensol] 10 mg/mL Concentrate 70 mg PO DAILY Print Language: Portuguese
[2023-11-02 21:10] LABS: Hematocrit 30.7 % (37.0-47.0); Mean Corpuscular HGB Conc 32.6 g/dl (31.0-35.0); Mean Corpuscular Hemoglobin 25.4 pg (27.0-33.0); Mean Corpuscular Volume 77.9 fL (80.0-98.0); Mean Platelet Volume 10.7 fL (9.4-12.3); Platelet Count 250 X10*3/uL (160-400); Red Blood Count 3.94 X10*6/uL (4.20-5.50); Red Cell Distribution Width 13.6 % (11.0-16.0); White Blood Count 5.7 X10*3/uL (4.8-10.8)
[2023-11-02 21:14] LABS: Basophils Absolute Auto 0.1 X10*3/uL (0.0-0.2); Basophils Percent Auto 0.9 % (0-2); Eosinophils Absolute Auto 0.2 X10*3/uL (0.0-0.4); Eosinophils Percent Auto 3.6 % (0-4); Imm Gran Abs Auto 0.03 X10*3/uL (0.00-0.03); Imm Gran Pct Auto 0.5 % (0.0-0.4); Lymphocytes Absolute Auto 1.7 X10*3/uL (1.2-4.9); Lymphocytes Percent Auto 30.4 % (20-40); Monocytes Absolute Auto 0.5 X10*3/uL (0.1-1.2); Monocytes Percent Auto 9.2 % (2-11); Neutrophils Absolute Auto 3.1 x10*3/uL (2.0-8.3); Neutrophils Percent Auto 55.4 % (45-73)
[2023-11-02 21:16] LABS: Alanine Aminotransferase 14 U/L (0-31); Albumin Level 3.3 g/dL (3.5-5.0); Alkaline Phosphatase 86 U/L (39-117); Anion Gap 13 (12-20); Aspartate Amino Transferase 14 U/L (5-31); Bilirubin Total 0.3 mg/dL (0.0-1.0); Blood Urea Nitrogen 10 mg/dL (9-16); Calcium 8.7 mg/dL (8.4-10.2); Carbon Dioxide 25 mmol/L (22-29); Chloride 106 mmol/L (96-108); Creatinine Clr Calc Pharmacy 119.4; Estimated Glomerular Filt Rate > 60; Glucose Random 118 mg/dL (60-115); Potassium 3.8 mmol/L (3.3-5.1); Sodium 140 mmol/L (135-145); Total Protein 7.1 g/dL (6.5-8.0)
--- NOTE | 2023-11-02 22:07 | PM.IMHP ---
History of Present Illness Date of Service: 11/02/23 Attending physician on admission: Janet Zarate Chief Complaint: Right hand pain and swelling Patient is a 27-year-old female with a PMH significant for IVDU on methadone, peripheral neuropathy, anxiety, and depression who represents to the ED today for a re-evaluation of right hand swelling and pain. Patient originally presented to the ED 3 days prior on 10/30/2023 and was admitted to the hospital for right and abscess secondary to IVDU after patient had missed a vein 1 week ago. Patient was not septic, and was started on vancomycin and Zosyn. Was taken to the OR where orthopedics performed a right hand I&D of the dorsal aspect and an I&D of the radial deep palmar space. Patient then left [facility] later that night on 10/31/2023. Patient represents today for dressing change and a re-evaluation of her hand as she says she feels an increasing ?pressure? and pain. No fever or chills. Has not been on any antibiotics since leaving AMA; unclear whether she even attempted to pick them up at the pharmacy. Reports last used heroin 5 days ago. No chest pain/pressure, palpitations. Denies shortness of breath. No nausea, vomiting, abdominal pain. Primarily shoots up in her hands, though also occasionally in her feet. In the ED patient was mildly hypertensive at 140/89, vitals otherwise WNL. Labs grossly unremarkable. No leukocytosis. Stable H& H. No electrolyte abnormalities. Renal and hepatic function baseline. Patient be admitted to the hospital for treatment and further evaluation of right hand cellulitis and abscess. Review of Systems Review of Systems: Increasing right hand pain and swelling Denies fever, chills No chest pain/pressure, palpitations No nausea, vomiting, abdominal pain [facility] Medical History Substance induced mood disorder Opioid use disorder Drug-induced psychotic disorder Asthma Social History Household Members: None Household Members Other:: Had roommate, moved out, lived in tent for @1 wk, went to detox. Housing: Homeless Housing Other:: patient stays in car Do you presently have visiting nurse or other home services: No Alcohol intake: current Alcohol intake frequency: does not drink Patient Tobacco Use Status: Current everyday Tobacco user Tobacco use type: Cigarette Cigarette Packs Per Day: 0 Cigarettes Per Day: 5 Years Smoked: 10 e-Cigarette/Vaping Use: Former Use Second Hand Smoke Exposure: Yes Substance Use Type: Crack/Cocaine, Heroin, IV Drugs and Marijuana Advance Directives: No Advance Directives Information Provided: No Advance Directives Date on File: 03/05/22 Do you have a plan to hurt others: No Plan service: No Sexual orientation: Don't Know Meds Allergies Allergy/AdvReac Type Severity Reaction Status Date / Time Penicillins [PENICILLINS] Allergy Unknown Hives Verified 11/02/23 20:14 haloperidol AdvReac Severe Anaphylaxis Verified 11/02/23 20:14 Active Medications: Current Medications Acetaminophen (Acetaminophen 325 Mg Tablet) 650 mg PO Q6H PRN PRN Reason: Pain, Mild (Pain Scale 1-3) Enoxaparin Sodium (Enoxaparin Sodium 40 Mg/0.4 Ml Syringe) 40 mg SUBCUT Q24H [facility] Vancomycin HCl 1,500 mg/ (Sodium Chloride) 500 mls @ 333.333 mls/hr IV ONCE ONE Stop: 11/02/23 23:03 Piperacillin Sod/Tazobactam (Sod 4.5 gm/ Sodium Chloride) 100 mls @ 200 mls/hr IV Q6H [facility] Melatonin (Melatonin 3 Mg Tablet) 6 mg PO BEDTIME PRN PRN Reason: Insomnia Ondansetron HCl (Ondansetron Hcl 4 Mg/2 Ml Vial) 4 mg IVPUSH Q8H PRN PRN Reason: Nausea and Vomiting Pharmacy Consult (Consult Rx Vancomycin Dosing) 1 each MISCELLANE DAILY PRN PRN Reason: Consult order Sodium Chloride (0.9 % Sodium Chloride Flush 3 Ml Syringe) 3 ml IVFLUSH QSHIFT [facility] Home Medications ?Medication ?Instructions ?Recorded ?Confirmed ?Last Taken ?Type gabapentin 300 mg capsule 300 mg PO BID 10/30/23 10/30/23 Unknown History lorazepam 0.5 mg tablet 0.5 mg PO BID PRN anxiety 10/30/23 10/30/23 Unknown History methadone 10 mg/mL oral 70 mg PO DAILY 10/30/23 10/31/23 Unknown History concentrate (Methadone Intensol) Physical Exam Vital Signs and Narrative: Vital Signs: Last Vital Signs Temp 98.5 F 11/02/23 20:12 Pulse 89 11/02/23 20:12 Resp 17 11/02/23 20:12 BP 140/89 H 11/02/23 20:12 Pulse Ox 99 11/02/23 20:12 O2 Del Method Room Air 11/02/23 20:12 BMI result Body Mass Index 27.6 General: AOx3, no acute distress Resp: CTA bilaterally CVS: S1, S2, RRR GI: +BS, NT, no distention Skin: Warm, dry Neuro: Cranial nerves II-XII grossly intact bilaterally. Motor grossly intact bilaterally Extremities: Right hand with significant swelling, erythema, and purulent discharge, more on dorsal aspect then palmar. As pictured below Psych: Appropriate affect Results Labs 11/02/23 20:54 11/02/23 20:54 Labs: Laboratory Results - last 24 hr 11/02/23 20:54 MCV 77.9 L MCH 25.4 L MCHC 32.6 RDW 13.6 Plt Count 250 MPV 10.7 Immature Gran % (Auto) 0.5 H Neut % (Auto) 55.4 Lymph % (Auto) 30.4 [place] % (Auto) 9.2 Eos % (Auto) 3.6 Baso % (Auto) 0.9 Lymph # (Auto) 1.7 [place] # (Auto) 0.5 Eos # (Auto) 0.2 Baso # (Auto) 0.1 Abs Immat Gran (auto) 0.03 Absolute Neuts (auto) 3.1 Absolute Nucleated RBC 0.000 Nucleated RBC % (auto) 0.0 Anion Gap 13 Estim Creat Clear Calc 119.4 Estimated GFR > 60 Random Glucose 118 H Calcium 8.7 D Total Bilirubin 0.3 AST 14 ALT 14 Alkaline Phosphatase 86 Total Protein 7.1 Albumin 3.3 L Assessment and Plan (1) Abscess of hand, right: Status: Acute (2) Cellulitis of right hand: Status: Acute Plan Patient is a 27-year-old female with a PMH significant for IVDU on methadone, peripheral neuropathy, anxiety, and depression who represents to the ED today for a re-evaluation of right hand swelling and pain. Patient be admitted to the hospital for treatment and further evaluation of right hand cellulitis and abscess. Right hand cellulitis and abscess Secondary to IVDU Patient previously admitted to the hospital on 10/29 with orthopedic I&D of both dorsal and palmar aspect on 10/30 Patient left AMA on 10/30 and has not been on antibiotics since Increased swelling and pain of right hand Patient does not meet sepsis criteria: No fever, tachycardia, tachypnea, or leukocytosis Will treat with vancomycin and Zosyn, started 11/02/2023 Orthopedic consult IVDU Reports last used 5 days ago Denies using since leaving AMA Addiction medicine consult Continue methadone Peripheral neuropathy Continue gabapentin Anxiety Continue lorazepam Full Code Attending:?Dr. Zarate DVT Prophylaxis: Lovenox Pt will require a hospitalization of at least two nights for treatment of?right hand cellulitis and abscess with IV antibiotics and specialist consultation with likely repeat washout in the OR. Quality Stroke Does the patient have a stroke diagnosis?: No VTE Prior VTE?: No VTE Risk Level:: Medical - moderate - high VTE Device Contraindication: Treatment Not Indicated VTE Drug Contraindication: N/A - Med Ordered
[2023-11-02 22:28] VITALS: BP 103/61; PULSE 75; RESP 16; TEMP 36.9; O2SAT 97
[2023-11-02] MEDS: iohexoL 350 MG/ML 100 ML INFUS..BTL 85 ML IV (22:42)
--- NOTE | 2023-11-02 23:19 | PC.NURSE ---
Patient's abx delayed d/t need of US IV, CT w/ IV contrast, admitter's interview.
--- NOTE | 2023-11-02 23:23 | PC.NURSE ---
Confirmed with Dr. Zarate no blood cultures needed.
[2023-11-02] MEDS: cefTRIAXone sodium 1 GM in 0.9 % Sodium Chloride 50 ML IV (23:30)
[2023-11-02] MEDS: Piperacillin Sodium/Tazobactam 4.5 GM in 0.9 % Sodium Chloride 100 ML IV (23:52)
[2023-11-02 23:59] VITALS: BP 134/74; PULSE 81; RESP 18; TEMP 36.3; O2SAT 100
[2023-11-03 00:16] VITALS: BMI 42.6
[2023-11-03] MEDS: vancomycin HCL 1,500 MG in 0.9 % Sodium Chloride 500 ML 333.33 MG IV (00:46)
[2023-11-03 01:43] VITALS: BP 121/98; PULSE 78; RESP 18; TEMP 36.6; O2SAT 98
[2023-11-03] MEDS: Piperacillin Sodium/Tazobactam 4.5 GM in 0.9 % Sodium Chloride 100 ML IV ×4 (04:28→21:23)
[2023-11-03] MEDS: 0.9 % Sodium Chloride Flush 3 ML SYRINGE IVFLUSH ×2 (05:20→21:24)
--- NOTE | 2023-11-03 07:27 | PHA.MEDREC ---
Pharmacy Consult ? Medication Reconciliation Pharmacy has completed the medication reconciliation. Patient recently left AMA 10/31/23. Utilized discharge summary to confirm meds. Pt attested to providers on THIS admission encounter that they had not taken the antibiotics prescribed when the patient left AMA on 10/31/23. Leaving the antibiotics off med rec.
[2023-11-03 07:28] VITALS: BP 114/56; PULSE 72; RESP 16; TEMP 36.4; O2SAT 96
--- NOTE | 2023-11-03 09:31 | HE.PHANOTE ---
RE METHADONE LAST DOSE 70 MG GIVEN 11/02/23 @[facility] IN [place]
[2023-11-03] MEDS: vancomycin HCL 1,250 MG in 0.9 % Sodium Chloride 250 ML 166.67 MG IV (09:35)
[2023-11-03] MEDS: methADONE HCl 20 MG/2 ML ORAL.CONC 70 MG PO (09:53)
--- NOTE | 2023-11-03 10:28 | PM.CNOR ---
History of Present Illness HPI Consult date: 11/03/23 Chief complaint: Hand infection Narrative: 27 yo female s/p I&D right hand with Dr Garcia 10/30 and left AMA that evening. She states she has not been taking PO abx when she left. She states when she left she did use IVDU that evening in the left hand. She returned to the ED last night due to worsening pain and redness. Admitted to medicine for IV abx Review of Systems Review of Systems: Yes all other systems are reviewed and are negative [facility] Past Medical History Medical History Substance induced mood disorder Opioid use disorder Drug-induced psychotic disorder Asthma Social History Social History Household Members: None Household Members Other:: Homeless Housing: Homeless Housing Other:: patient stays in car Do you presently have visiting nurse or other home services: No Alcohol intake: current Alcohol intake frequency: does not drink Patient Tobacco Use Status: Current everyday Tobacco user Tobacco use type: Cigarette Cigarette Packs Per Day: 0 Cigarettes Per Day: 4 Years Smoked: 10 e-Cigarette/Vaping Use: Never Used Second Hand Smoke Exposure: Yes Substance Use Type: Crack/Cocaine and Heroin Advance Directives Date on File: 03/05/22 service: No Sexual orientation: Don't Know Meds Allergies Allergy/AdvReac Type Severity Reaction Status Date / Time Penicillins [PENICILLINS] Allergy Unknown Hives Verified 11/02/23 20:14 haloperidol AdvReac Severe Anaphylaxis Verified 11/02/23 20:14 Active Medications: Current Medications Acetaminophen (Acetaminophen 325 Mg Tablet) 650 mg PO Q6H PRN PRN Reason: Pain, Mild (Pain Scale 1-3) Enoxaparin Sodium (Enoxaparin Sodium 40 Mg/0.4 Ml Syringe) 40 mg SUBCUT Q24H [facility] Last Admin: 11/02/23 23:53 Dose: Not Given Piperacillin Sod/Tazobactam (Sod 4.5 gm/ Sodium Chloride) 100 mls @ 200 mls/hr IV Q6H [facility] Last Infusion: 11/03/23 09:36 Dose: Infused Vancomycin HCl 1,250 mg/ (Sodium Chloride) 250 mls @ 166.667 mls/hr IV Q12H [facility] Last Admin: 11/03/23 09:35 Dose: 166.67 mls/hr Melatonin (Melatonin 3 Mg Tablet) 6 mg PO BEDTIME PRN PRN Reason: Insomnia Methadone HCl (Methadone Hcl 20 Mg/2 Ml Oral.Conc) 70 mg PO DAILY [facility] Last Admin: 11/03/23 09:53 Dose: 70 mg Ondansetron HCl (Ondansetron Hcl 4 Mg/2 Ml Vial) 4 mg IVPUSH Q8H PRN PRN Reason: Nausea and Vomiting Pharmacy Consult (Consult Rx Vancomycin Dosing) 1 each MISCELLANE DAILY PRN PRN Reason: Consult order Sodium Chloride (0.9 % Sodium Chloride Flush 3 Ml Syringe) 3 ml IVFLUSH QSHIFT [facility] Last Admin: 11/03/23 09:36 Dose: Not Given Home Medications ?Medication ?Instructions ?Recorded ?Confirmed ?Last Taken ?Type gabapentin 300 mg capsule 300 mg PO BID 10/30/23 11/03/23 Unknown History lorazepam 0.5 mg tablet 0.5 mg PO BID PRN anxiety 10/30/23 11/03/23 Unknown History methadone 10 mg/mL oral 70 mg PO DAILY 10/30/23 11/03/23 11/02/23 History concentrate (Methadone Intensol) Physical Exam Vital Signs: Vital Signs: Last Vital Signs Temp 97.6 F 11/03/23 07:28 Pulse 72 11/03/23 07:28 Resp 16 11/03/23 07:28 BP 114/56 L 11/03/23 07:28 Pulse Ox 96 11/03/23 07:28 O2 Del Method Room Air 11/03/23 07:28 BMI result Body Mass Index 42.6 Const: Other: Patient is alert, oriented, cooperative, and in no acute distress HEENT: Head: Yes normocephalic and Yes atraumatic Resp: Effort & Inspection: normal respiratory effort and able to speak in complete sentences Cardio: Jugular venous distension: no JVD Neuro: General: gait normal Cognition (Neuro): normal cognition Extrem: Other: Patient is awake and in no acute distress. After taking down the dressing, there is a approximately 2.5 cm incision over the dorsal aspect of the 1st webspace. There is drainage on the dressing, and when the dressing is removed no active drainage from the wound There is significant erythema and swelling over the majority of the dorsal aspect of the hand. Patient is able to flex and extend all digits. Patient is also able to move the wrist without difficulty. NVI Psych: Appearance: grossly normal Mental Status: mental status grossly normal Results Labs 11/02/23 20:54 11/02/23 20:54 Labs: Abnormal lab results 11/02/23 Range/Units 20:54 RBC 3.94 L (4.20-5.50) X10*6/uL Hgb 10.0 L (12.0-16.0) g/dl Hct 30.7 L (37.0-47.0) % MCV 77.9 L (80.0-98.0) fL MCH 25.4 L (27.0-33.0) pg Immature Gran % (Auto) 0.5 H (0.0-0.4) % Random Glucose 118 H (60-115) mg/dL Albumin 3.3 L (3.5-5.0) g/dL H & H 11/02/23 Range/Units 20:54 Hgb 10.0 L (12.0-16.0) g/dl Hct 30.7 L (37.0-47.0) % All other labs normal. Assessment and Plan (1) Abscess of hand, right: Status: Acute Plan IV abx warm water soaks-order placed NPO after midnight incase she nees another wash out--> I did discuss this with the patient that sometimes infections need multiple wash outs before the infection is cleared. She expressed understanding. I also stressed the importance of continuing with iv abx Procedures Date of Service Date of Service: 11/03/23
--- NOTE | 2023-11-03 11:11 | MHC.CM.PN ---
PT IS HOMELESS, IS LIVING IN HER CAR GOES TO [facility] [place] [facility] LIST GIVEN TO PT DC PLAN TBD
--- NOTE | 2023-11-03 11:33 | P.PNIM_ITS ---
Subjective Subjective Date of Service: 11/03/23 Interval History: cellulitis Review of Systems Right hand pain and swelling-seems similar no fevers denies any other c/o Physical Exam 2 Vital Signs: Vital Signs: Last Vital Signs Temp 97.6 F 11/03/23 07:28 Pulse 72 11/03/23 07:28 Resp 16 11/03/23 07:28 BP 114/56 L 11/03/23 07:28 Pulse Ox 96 11/03/23 07:28 O2 Del Method Room Air 11/03/23 07:28 BMI result Body Mass Index 42.6 In Appearance: Alert.? Oriented X3.? cvs: rrr, [id number] , no murmur res: clear to auscultation ,no rhonchii or wheezing abd: no rebound or guarding ,nt, bs present. ext pulses present , no cyanosis . right hand-swelling/pain-please see pic from last admission neuro: axo3 , nonfocal. Objective Data Active Medications Acetaminophen (Acetaminophen 325 Mg Tablet) 650 mg PO Q6H PRN PRN Reason: Pain, Mild (Pain Scale 1-3) Enoxaparin Sodium (Enoxaparin Sodium 40 Mg/0.4 Ml Syringe) 40 mg SUBCUT Q24H [facility] Last Admin: 11/02/23 23:53 Dose: Not Given Documented By: SHADI Non-Admin Reason: Patient Refused Piperacillin Sod/Tazobactam (Sod 4.5 gm/ Sodium Chloride) 100 mls @ 200 mls/hr IV Q6H [facility] Last Infusion: 11/03/23 09:36 Dose: Infused Documented By: JOSHUA Vancomycin HCl 1,250 mg/ (Sodium Chloride) 250 mls @ 166.667 mls/hr IV Q12H [facility] Last Infusion: 11/03/23 11:12 Dose: Infused Documented By: JOSHUA Melatonin (Melatonin 3 Mg Tablet) 6 mg PO BEDTIME PRN PRN Reason: Insomnia Methadone HCl (Methadone Hcl 20 Mg/2 Ml Oral.Conc) 70 mg PO DAILY [facility] Last Admin: 11/03/23 09:53 Dose: 70 mg Documented By: JOSHUA Ondansetron HCl (Ondansetron Hcl 4 Mg/2 Ml Vial) 4 mg IVPUSH Q8H PRN PRN Reason: Nausea and Vomiting Pharmacy Consult (Consult Rx Vancomycin Dosing) 1 each MISCELLANE DAILY PRN PRN Reason: Consult order Sodium Chloride (0.9 % Sodium Chloride Flush 3 Ml Syringe) 3 ml IVFLUSH QSHIFT [facility] Last Admin: 11/03/23 09:36 Dose: Not Given Documented By: JOSHUA Non-Admin Reason: IV Running Labs 11/02/23 20:54 11/02/23 20:54 Labs: Laboratory Results - last 24 hr 11/02/23 20:54 MCV 77.9 L MCH 25.4 L MCHC 32.6 RDW 13.6 Plt Count 250 MPV 10.7 Immature Gran % (Auto) 0.5 H Neut % (Auto) 55.4 Lymph % (Auto) 30.4 [place] % (Auto) 9.2 Eos % (Auto) 3.6 Baso % (Auto) 0.9 Lymph # (Auto) 1.7 [place] # (Auto) 0.5 Eos # (Auto) 0.2 Baso # (Auto) 0.1 Abs Immat Gran (auto) 0.03 Absolute Neuts (auto) 3.1 Absolute Nucleated RBC 0.000 Nucleated RBC % (auto) 0.0 Anion Gap 13 Estim Creat Clear Calc 119.4 Estimated GFR > 60 Random Glucose 118 H Calcium 8.7 D Total Bilirubin 0.3 AST 14 ALT 14 Alkaline Phosphatase 86 Total Protein 7.1 Albumin 3.3 L Assessment and Plan (1) Cellulitis of right hand: Status: Acute Assessment and Plan: 27 y/o woman admitted with: Right arm cellulitis, abscess and sinovitis. esr and Crp added CT/CT hand RT w IV con IMPRESSION: 1. Diffuse soft tissue edema throughout the hand and forearm, improved from prior. No organized fluid collection to suggest residual abscess or hematoma. 2. There are 2 small foci of soft tissue gas along the palmar aspect of the distal forearm which are new from prior and possibly postsurgical. Continue empiric IV antibiotic therapy with vancomycin and Zosyn. NPO after midnight. continue renal function electrolyte monitoring, orthopedic consult-possible surgerical intervention in am. Chronic anemia. Continue to monitor hemoglobin. morbid Obesity. BMI 40.3 kg/m2.: So the also encouraged to lose weight ,cut down calories. IV drug abuse. Continue methadone . Ongoing hospitalization need: Right arm cellulitis needs IV antibiotics, orthopedic eval,renal function electrolyte monitoring and vanco trough monitoring. Quality Stroke Does the patient have a stroke diagnosis?: No VTE Prior VTE?: No VTE Risk Level:: Medical - moderate - high VTE Device Contraindication: Treatment Not Indicated VTE Drug Contraindication: N/A - Med Ordered
--- NOTE | 2023-11-03 12:00 | MHC.CM.PN ---
[facility] IMFO GIVEN TO PT
[2023-11-03 16:00] VITALS: BP 100/55; PULSE 67; RESP 18; TEMP 36.4; O2SAT 98
[2023-11-03 20:00] VITALS: BP 96/49; PULSE 65; RESP 20; TEMP 36.3; O2SAT 100
[2023-11-03 20:21] LABS: Vancomycin Random 9.7 mcg/mL (15-20)
[2023-11-03 20:42] LABS: Anion Gap 15 (12-20); Blood Urea Nitrogen 7 mg/dL (9-16); Calcium 8.4 mg/dL (8.4-10.2); Carbon Dioxide 22 mmol/L (22-29); Chloride 110 mmol/L (96-108); Creatinine Clr Calc Pharmacy 145.6; Estimated Glomerular Filt Rate > 60; Glucose Random 136 mg/dL (60-115); Potassium 4.4 mmol/L (3.3-5.1); Sodium 143 mmol/L (135-145)
[2023-11-03] MEDS: Gabapentin 300 MG CAPSULE PO (21:22)
[2023-11-03] MEDS: vancomycin HCL 1,250 MG in 0.9 % Sodium Chloride 250 ML 166 MG IV (21:24)
[2023-11-03] MEDS: LORazepam 0.5 MG TABLET PO (21:38)
[2023-11-04] MEDS: traMADoL HCL 50 MG TABLET PO ×2 (03:38→19:42)
[2023-11-04] MEDS: Piperacillin Sodium/Tazobactam 4.5 GM in 0.9 % Sodium Chloride 100 ML IV ×4 (03:40→21:40)
[2023-11-04 03:41] VITALS: BP 97/56; PULSE 78; RESP 20; TEMP 36.3; O2SAT 98
--- NOTE | 2023-11-04 06:33 | PC.NURSE ---
Patient is alert and oriented x3 speech is clear and patient follows all commands.Patient visual alexandre are intact she moves all extremities moderate strength and equal sba when oob. Patient ambulated to the BR and took a shower overnight. Per ortho orders patient hand was soaked in water and peroxide for only 15 mins .She complains of pain ,medications given at this timer to only tolerate 15 mins, hand was dressed no drainage noted. Patient complained of pain , MD made aware and tramadol was administered with good effect. Patient refused am labs and RN communicated with phleb. to come at a later time . Patient call [facility] bed alarm .
[2023-11-04 08:00] VITALS: BP 94/54; PULSE 65; RESP 14; TEMP 36.6; O2SAT 95
[2023-11-04] MEDS: 0.9 % Sodium Chloride Flush 3 ML SYRINGE IVFLUSH ×2 (08:31→15:05)
[2023-11-04] MEDS: methADONE HCl 20 MG/2 ML ORAL.CONC 70 MG PO (08:32)
[2023-11-04] MEDS: Gabapentin 300 MG CAPSULE PO ×2 (08:32→19:43)
[2023-11-04] MEDS: LORazepam 0.5 MG TABLET PO ×2 (08:43→19:43)
[2023-11-04] MEDS: vancomycin HCL 1,250 MG in 0.9 % Sodium Chloride 250 ML 166.66 MG IV (10:15)
[2023-11-04 10:43] LABS: Creatinine Clr Calc Pharmacy 164.5; Estimated Glomerular Filt Rate > 60
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
--- NOTE | 2023-11-04 11:10 | MHC.CM.PN ---
EMR REVIEWED. PER MD ROUNDS PATIENT NOT MEDICALLY CLEARED FOR DC. CM WILL CONTINUE TO FOLLOW.
--- NOTE | 2023-11-04 13:29 | HO.PM.IMPN ---
Subjective Subjective Date of Service: 11/04/23 Interval History: hand cellulitis Review of Systems Right hand pain and swelling-seems similar,no fevers denies any other c/o Physical Exam Vital Signs: Vital Signs: Last Vital Signs Temp 97.8 F 11/04/23 08:00 Pulse 65 11/04/23 08:00 Resp 14 11/04/23 08:00 BP 94/54 L 11/04/23 08:00 Pulse Ox 95 11/04/23 08:00 O2 Del Method Room Air 11/04/23 08:00 BMI result Body Mass Index 42.6 In Appearance: Alert.? Oriented X3.? cvs: rrr, [id number] , no murmur res: clear to auscultation ,no rhonchii or wheezing abd: no rebound or guarding ,nt, bs present. ext pulses present , no cyanosis . right hand-swelling/pain-please see pic from last admission neuro: axo3 , nonfocal. Objective Data Active Medications Acetaminophen (Acetaminophen 325 Mg Tablet) 650 mg PO Q6H PRN PRN Reason: Pain, Mild (Pain Scale 1-3) Enoxaparin Sodium (Enoxaparin Sodium 40 Mg/0.4 Ml Syringe) 40 mg SUBCUT Q24H [facility] Last Admin: 11/03/23 21:22 Dose: Not Given Documented By: ANGELINE Non-Admin Reason: Patient Refused Gabapentin (Gabapentin 300 Mg Capsule) 300 mg PO BID [facility] Last Admin: 11/04/23 08:32 Dose: 300 mg Documented By: MERVIN Piperacillin Sod/Tazobactam (Sod 4.5 gm/ Sodium Chloride) 100 mls @ 200 mls/hr IV Q6H [facility] Last Infusion: 11/04/23 10:11 Dose: Infused Documented By: MERVIN Vancomycin HCl 1,250 mg/ (Sodium Chloride) 250 mls @ 166.667 mls/hr IV Q12H [facility] Last Infusion: 11/04/23 11:51 Dose: Infused Documented By: MERVIN Lorazepam (Lorazepam 0.5 Mg Tablet) 0.5 mg PO BID PRN PRN Reason: anxiety Last Admin: 11/04/23 08:43 Dose: 0.5 mg Documented By: MERVIN Melatonin (Melatonin 3 Mg Tablet) 6 mg PO BEDTIME PRN PRN Reason: Insomnia Methadone HCl (Methadone Hcl 20 Mg/2 Ml Oral.Conc) 70 mg PO DAILY [facility] Last Admin: 11/04/23 08:32 Dose: 70 mg Documented By: MERVIN Ondansetron HCl (Ondansetron Hcl 4 Mg/2 Ml Vial) 4 mg IVPUSH Q8H PRN PRN Reason: Nausea and Vomiting Pharmacy Consult (Consult Rx Vancomycin Dosing) 1 each MISCELLANE DAILY PRN PRN Reason: Consult order Sodium Chloride (0.9 % Sodium Chloride Flush 3 Ml Syringe) 3 ml IVFLUSH QSHIFT [facility] Last Admin: 11/04/23 08:31 Dose: 3 ml Documented By: MERVIN Tramadol HCl (Tramadol Hcl 50 Mg Tablet) 50 mg PO Q6H PRN PRN Reason: Pain, Severe (Pain Scale 7-10) Last Admin: 11/04/23 03:38 Dose: 50 mg Documented By: ANGELINE Labs 11/02/23 20:54 11/04/23 09:51 Labs: Laboratory Results - last 24 hr 11/03/23 11/04/23 19:53 09:51 Hold Purple Top SEE NOTE Anion Gap 15 Estim Creat Clear Calc 145.6 164.5 Estimated GFR > 60 > 60 Random Glucose 136 H Calcium 8.4 C-Reactive Protein 4.10 H Random Vancomycin 9.7 L Assessment and Plan (1) Cellulitis of right hand: Status: Acute Assessment and Plan: 27 y/o woman admitted with: Right arm cellulitis, abscess and sinovitis. esr and Crp added CT/CT hand RT w IV con IMPRESSION: 1. Diffuse soft tissue edema throughout the hand and forearm, improved from prior. No organized fluid collection to suggest residual abscess or hematoma. 2. There are 2 small foci of soft tissue gas along the palmar aspect of the distal forearm which are new from prior and possibly postsurgical. Continue empiric IV antibiotic therapy with vancomycin and Zosyn. Npo, continue renal function electrolyte monitoring, orthopedic consult-possible surgerical washout . Chronic anemia. Continue to monitor hemoglobin. morbid Obesity. BMI 40.3 kg/m2.: So the also encouraged to lose weight ,cut down calories. IV drug abuse. Continue methadone . Ongoing hospitalization need: Right arm cellulitis needs IV antibiotics, orthopedic eval,renal function electrolyte monitoring and vanco trough monitoring. Quality Stroke Does the patient have a stroke diagnosis?: No VTE Prior VTE?: No VTE Risk Level:: Medical - moderate - high VTE Device Contraindication: Treatment Not Indicated VTE Drug Contraindication: N/A - Med Ordered
[2023-11-04] MEDS: Albumin Human 25 % 100 ML IV ×2 (13:59→19:34)
[2023-11-04] MEDS: Lactated Ringers 1,000 ML 100 ML IVCONT (15:04)
[2023-11-04 15:42] VITALS: BP 109/57; PULSE 98; RESP 18; TEMP 36.2; O2SAT 99
[2023-11-04 19:41] VITALS: BP 115/55; PULSE 65; RESP 20; TEMP 36.3; O2SAT 97
[2023-11-04] MEDS: Nicotine Polacrilex 2 MG GUM BUCCAL (20:35)
[2023-11-04 20:49] LABS: Vancomycin Random 10.2 mcg/mL (15-20)
--- NOTE | 2023-11-04 21:01 | HE.PHANOTE ---
VANCO Trough came back subtherapeutic at 10.2, changed dose to 1000 Q8H, new trough to be drawn 11/04 @1999, predicted AUC 456, predicted trough 12.7.
[2023-11-04] MEDS: Ibuprofen 600 MG TABLET PO (21:50)
[2023-11-04] MEDS: vancomycin HCL 1,000 MG in 0.9 % Sodium Chloride 250 ML 270 MG IV (22:14)
[2023-11-05] MEDS: Albumin Human 25 % 100 ML IV (01:20)
[2023-11-05] MEDS: Lactated Ringers 1,000 ML 100 ML IVCONT (02:21)
[2023-11-05 03:18] VITALS: BP 107/55; PULSE 61; RESP 19; TEMP 36.6; O2SAT 97
[2023-11-05] MEDS: Piperacillin Sodium/Tazobactam 4.5 GM in 0.9 % Sodium Chloride 100 ML IV (04:42)
[2023-11-05] MEDS: vancomycin HCL 1,000 MG in 0.9 % Sodium Chloride 250 ML 270 MG IV (05:13)
[2023-11-05 07:47] VITALS: BP 104/58; PULSE 70; RESP 14; TEMP 36.1; O2SAT 97
--- NOTE | 2023-11-05 07:59 | PC.NURSE ---
pt in hallway asking to sign out AMA, this RN requested pt to go back into room and wait for MD to come and talk with her about risks and complications of leaving AMA. Pt stated she has heard this before and there is no need and that she just wants to leave. IV removed and AMA paper signed with Diomedes PIZANO as witness.
--- NOTE | 2023-11-05 11:04 | PM.DS ---
DS: Providers Provider Date of Service: 11/05/23 Date of admission: 11/02/23 21:44 Primary care physician: None Physician Consults: 11/02/23 21:46 Addiction Medicine Routine Consulting Provider: Addiction Covering Reason for consultation: opioid use disorder Consult to Orthopedics Routine Consulting Provider: Sahra Garcia Reason for consultation: hand abscess DS: Diagnosis Discharge Diagnosis (1) Cellulitis of right hand: Status: Acute DS: Summary Hospital Course Hospital Course: History of presenting illness: Date of Service: 11/02/23 Attending physician on admission: Janet Zarate Chief Complaint: Right hand pain and swelling Patient is a 27-year-old female with a PMH significant for IVDU on methadone, peripheral neuropathy, anxiety, and depression who represents to the ED today for a re-evaluation of right hand swelling and pain. Patient originally presented to the ED 3 days prior on 10/30/2023 and was admitted to the hospital for right and abscess secondary to IVDU after patient had missed a vein 1 week ago. Patient was not septic, and was started on vancomycin and Zosyn. Was taken to the OR where orthopedics performed a right hand I&D of the dorsal aspect and an I&D of the radial deep palmar space. Patient then left AMA later that night on 10/31/2023. Patient represents today for dressing change and a re-evaluation of her hand as she says she feels an increasing ?pressure? and pain. No fever or chills. Has not been on any antibiotics since leaving AMA; unclear whether she even attempted to pick them up at the pharmacy. Reports last used heroin 5 days ago. No chest pain/pressure, palpitations. Denies shortness of breath. No nausea, vomiting, abdominal pain. Primarily shoots up in her hands, though also occasionally in her feet. In the ED patient was mildly hypertensive at 140/89, vitals otherwise WNL. Labs grossly unremarkable. No leukocytosis. Stable H& H. No electrolyte abnormalities. Renal and hepatic function baseline. Patient be admitted to the hospital for treatment and further evaluation of right hand cellulitis and abscess. Hospital course 27-year-old female status post I&D right hand with Dr. Garcia on October 30 left AMA same evening, patient was given a prescription of doxycycline but however patient did not use the antibiotics and used IV drugs that same evening in the left hand, and returned back to [place] emergency room on November 01, was placed on IV vancomycin and Zosyn was evaluated by orthopedic surgeon the plan was for close clinical follow-up on IV antibiotics and reassessment for repeat I and D but however patient again decided to leave hospital against medical advice, she is adamant to leave the hospital she has been made aware of the risk of sepsis, worsening infection showed understanding but left hospital , prescription for doxycycline 100 mg by mouth b.i.d. sent to preferred pharmacy, she is recommended to return to [place] [facility] ED noted to have worsening redness pain or fever, and to follow up with primary care physician she has been strongly advised to abstain from illicit drug use. In regard to morbid obesity she has been recommended to lose weight and take low-calorie diet. Chronic anemia stable Time Attestation Discharge Coordination Time (in mins): 30 Quality: Safe Use of Opioids Does Pt have an Active Cancer Diagnosis on the Problem List?: No Quality: Stroke Does the patient have a stroke diagnosis?: No Physical Exam Vital Signs: Vital Signs: Last Vital Signs Temp 96.9 F 11/05/23 07:47 Pulse 70 11/05/23 07:47 Resp 14 11/05/23 07:47 BP 104/58 L 11/05/23 07:47 Pulse Ox 97 11/05/23 07:47 O2 Del Method Room Air 11/05/23 07:47 BMI result Body Mass Index 42.6 DS: Data Data Completed and Pending Completed studies during hospitalization [Text1]: Procedures Drainage of Right Hand, Open Approach (10/30/23) Excision of Right Hand Subcutaneous Tissue and Fascia, Open Approach (10/30/23) Introduction of Anesthetic Agent into Peripheral Nerves and Plexi, Percutaneous Approach (10/30/23) Labs on day of discharge: Laboratory Results - last 24 hr 11/04/23 20:12 Random Vancomycin 10.2 L Discharge Plan Discharge Patient Disposition: Left Against Medical Advice Discharge Diagnosis: Right hand abscess/cellulitis Referrals: Physician,None [Primary Care Provider] - 1 Week Discharge Medications: New doxycycline monohydrate 100 mg capsule 100 mg PO BID Qty: 14 0RF Continued lorazepam 0.5 mg tablet 0.5 mg PO BID PRN (Reason: anxiety) gabapentin 300 mg capsule 300 mg PO BID methadone [Methadone Intensol] 10 mg/mL Concentrate 70 mg PO DAILY Discharge Orders: Discharge Order (Routine); Ordered 11/05/23 Ordered By: Tesfaye Blas Print Language: Mohawk Care Plan Goals: Take doxycycline 100 mg 1 tablet twice daily for 7 days, follow up with pcp Return to ED if noted to have worsening redness swelling, high-grade fevers Health Concerns: Strongly recommend to abstain from IV drug use Plan of Treatment: Follow-up with PCP in 1 week Assessment: As above Discharge Date/Time: 11/05/23 08:15
== END 2023-11-05 08:15 | disposition left against medical advice (07) | DRG 383 ==
LOC: HO.ED 21:49 → HO.EDOVER 21:56 → HO.S3 22:51
PROVIDERS: Internal Medicine; Admitting Provider Student in an Organized Health Care Education/Training Program; Emergency Provider Emergency Medicine; Visit Provider Hospitalist
DX: L03.113 Cellulitis of right upper limb (principal); E66.01 Morbid (severe) obesity due to excess calories; L02.511 Cutaneous abscess of right hand; T36.4X6A Underdosing of tetracyclines, initial encounter; F11.20 Opioid dependence, uncomplicated; F17.210 Nicotine dependence, cigarettes, uncomplicated; F41.9 Anxiety disorder, unspecified; G62.9 Polyneuropathy, unspecified; Z71.6 Tobacco abuse counseling; Z68.41 Body mass index [BMI] 40.0-44.9, adult; Z59.02 Unsheltered homelessness; Z79.899 Other long term (current) drug therapy
CPT/HCPCS: 36415; 73201; 80048; 80053; 80202; 82565; 85025; 86140; 99285; J0696; J1650; J2543; J3370; J3371; J7120; P9047; Q9967

== ENCOUNTER → 2023-11-02 21:44 | Outpatient (BNV) | payer OTHER, SELFPAY | PROVIDERS: Admitting Provider Student in an Organized Health Care Education/Training Program; Emergency Provider Emergency Medicine; Visit Provider Nurse Practitioner Psychiatric/Mental Health | DX: F11.90 Opioid use, unspecified, uncomplicated (principal) | CPT/HCPCS: 99221; 99231 ==

== ENCOUNTER → 2023-11-02 21:44 | Outpatient (BNV) | payer OTHER, SELFPAY | PROVIDERS: Admitting Provider Student in an Organized Health Care Education/Training Program; Emergency Provider Emergency Medicine; Visit Provider Student in an Organized Health Care Education/Training Program | DX: L03.113 Cellulitis of right upper limb (principal) | CPT/HCPCS: 99223; 99232; 99238 ==

== ENCOUNTER → 2023-11-02 21:44 | Outpatient (BNV) | payer OTHER, SELFPAY | PROVIDERS: Admitting Provider Student in an Organized Health Care Education/Training Program; Emergency Provider Emergency Medicine; Visit Provider Physician Assistant | DX: L02.511 Cutaneous abscess of right hand (principal) | CPT/HCPCS: 99024 ==

== ENCOUNTER 2023-12-01 01:55 | Emergency (ER) | payer OTHER, SELFPAY ==
--- NOTE | 2023-12-01 | ECG_ITS ---
Test Reason : chest pain Blood Pressure : / mmHG Vent. Rate : 092 BPM Atrial Rate : 092 BPM P-R Int : 134 ms QRS Dur : 086 ms QT Int : 374 ms P-R-T Axes : 049 005 018 degrees QTc Int : 462 ms Normal sinus rhythm Cannot rule out Anterior infarct , age undetermined Abnormal ECG When compared with ECG of 04-MAR-2023 23:34, Nonspecific T wave abnormality, worse in Anterior leads Referred By: Generic ED Physician Electronically Signed By:Darian Matthews
[2023-12-01 01:59] VITALS: BP 149/93; PULSE 93; RESP 16; TEMP 36.6; O2SAT 98; BMI 30.9
[2023-12-01 02:48] LABS: Appearance Urine Turbid; Color Urine Dark Yellow; Glucose Urine UA Negative (Negative); Leukocyte Esterase Urine Moderate (2+) (Negative); Nitrite Urine Negative (Negative); UMIC TRIGGER UACC YES; Urine Blood Moderate (2+) (Negative); Urine Ketones Trace mg/dL (Negative); Urine Protein 30 (1+) mg/dL (Neg-Trace)
[2023-12-01 03:07] LABS: Amphetamine Screen Urine Not Detected (Not Detect); Barbiturates, Urine Not Detected (Not Detect); Benzodiazepines Screen Urine Not Detected (Not Detect); Buprenorphine Scr Not Detected (Not Detect); Cannabinoid Screen Urine Not Detected (Not Detect); Cocaine Screen Urine POSITIVE (Not Detect); Fentanyl, urine POSITIVE (Not Detect); Methadone Screen, Urine Positive (Not Detect); Opiate Screen Urine POSITIVE (Not Detect); Oxycodone Screen Urine Not Detected (Not Detect); Phencyclidine Screen Urine Not Detected (Not Detect)
[2023-12-01 03:08] LABS: Bacteria Urine 4+ (None Seen); Hyaline Casts Urine >20 /LPF (0-2); Squamous Epithelial Cell Urine >20 /HPF (0-2); UACC Culture Trigger YES; WBC Urine >50 /HPF (0-5)
[2023-12-01 03:27] LABS: Alanine Aminotransferase 15 U/L (0-31); Albumin Level 3.8 g/dL (3.5-5.0); Alkaline Phosphatase 110 U/L (39-117); Anion Gap 14 (12-20); Aspartate Amino Transferase 19 U/L (5-31); Bilirubin Direct < 0.2 mg/dL (0.0-0.5); Bilirubin Total 0.2 mg/dL (0.0-1.0); Blood Urea Nitrogen 10 mg/dL (9-16); Calcium 9.5 mg/dL (8.4-10.2); Carbon Dioxide 23 mmol/L (22-29); Chloride 106 mmol/L (96-108); Creatinine Clr Calc Pharmacy 114.3; Estimated Glomerular Filt Rate > 60; Glucose Random 91 mg/dL (60-115); Potassium 3.8 mmol/L (3.3-5.1); Sodium 139 mmol/L (135-145); Total Protein 7.6 g/dL (6.5-8.0)
[2023-12-01 04:38] LABS: Basophils Percent Auto 0.8 % (0-2); Eosinophils Absolute Auto 0.1 X10*3/uL (0.0-0.4); Eosinophils Percent Auto 2.8 % (0-4); Hematocrit 33.3 % (37.0-47.0); Hemoglobin 10.8 g/dl (12.0-16.0); Imm Gran Abs Auto 0.03 X10*3/uL (0.00-0.03); Imm Gran Pct Auto 0.6 % (0.0-0.4); Lymphocytes Absolute Auto 1.5 X10*3/uL (1.2-4.9); Lymphocytes Percent Auto 30.8 % (20-40); MANUAL DIFF FLAG SCAN; Mean Corpuscular HGB Conc 32.4 g/dl (31.0-35.0); Mean Corpuscular Hemoglobin 24.8 pg (27.0-33.0); Mean Corpuscular Volume 76.4 fL (80.0-98.0); Mean Platelet Volume 11.4 fL (9.4-12.3); Monocytes Absolute Auto 0.4 X10*3/uL (0.1-1.2); Monocytes Percent Auto 8.4 % (2-11); NRBC Pct Auto 0.8 /100WBC (0.0-0.2); Neutrophils Absolute Auto 2.8 x10*3/uL (2.0-8.3); Neutrophils Percent Auto 56.6 % (45-73); PLT CLUMP 1; Platelet Count 167 X10*3/uL (160-400); Red Blood Count 4.36 X10*6/uL (4.20-5.50); Red Cell Distribution Width 14.6 % (11.0-16.0); SCAN SMEAR FLAG 1
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
[2023-12-01 05:00] LABS: SLIDE REVIEW VERIFIED
[2023-12-01 05:10] LABS: Urine Pregnancy NEGATIVE (NEGATIVE)
[2023-12-01] MEDS: cefuroxime axetiL 250 MG TABLET PO (05:10)
[2023-12-01 05:11] LABS: UPreg QC Valid YES
[2023-12-01 05:12] VITALS: BP 154/98; PULSE 70; RESP 18; TEMP 36.8
== END 2023-12-01 05:10 | disposition home or self-care (01) ==
PROVIDERS: Emergency Provider Emergency Medicine
DX: R42 Dizziness and giddiness (principal); F14.10 Cocaine abuse, uncomplicated; R07.89 Other chest pain; N39.0 Urinary tract infection, site not specified; R51.9 Headache, unspecified; F19.10 Other psychoactive substance abuse, uncomplicated; Z79.899 Other long term (current) drug therapy
CPT/HCPCS: 36415; 80048; 80076; 80307; 81001; 81025; 85025; 87086; 87088; 87186; 93005; 99283

== ENCOUNTER → 2023-12-01 02:20 | Outpatient (BNV) | payer OTHER, SELFPAY | PROVIDERS: Emergency Provider Emergency Medicine; Visit Provider Internal Medicine Cardiovascular Disease | DX: I45.81 Long QT syndrome (principal) | CPT/HCPCS: 93010 ==

== ENCOUNTER 2023-12-03 17:38 | Inpatient (IN) | payer OTHER, SELFPAY ==
[2023-12-03 17:57] VITALS: BP 154/99; PULSE 100; RESP 18; TEMP 36.3; O2SAT 96
[2023-12-03 18:09] VITALS: BP 154/99; PULSE 100; RESP 18; TEMP 36.3; O2SAT 96
--- NOTE | 2023-12-03 18:26 | PC.NURSE ---
Patient self presented to [facility] due to suicidal ideations. The patient endorses command auditory hallucinations telling her to kill herself or calling her retarded . The patient does not deny or endorse visual hallucinations stating she is unable to tell if she is seeing hallucinations or not. The patient endorses using heroin and cocaine today - a forrest bag of each. Patient also endorses that she continues to have hallucinations when not using heroin and/or cocaine.
[2023-12-03 18:34] LABS: Appearance Urine Turbid; Color Urine Yellow; Glucose Urine UA Negative (Negative); Leukocyte Esterase Urine Large (3+) (Negative); Nitrite Urine Negative (Negative); Specific Gravity - Urine 1.025 (1.005-1.025); UMIC TRIGGER UACC YES; Urine Blood Moderate (2+) (Negative); Urine Ketones Negative (Negative); Urine Protein 30 (1+) mg/dL (Neg-Trace)
[2023-12-03 18:35] LABS: UPreg QC Valid YES; Urine Pregnancy NEGATIVE (NEGATIVE)
[2023-12-03 18:41] LABS: Amphetamine Screen Urine Not Detected (Not Detect); Barbiturates, Urine Not Detected (Not Detect); Benzodiazepines Screen Urine Not Detected (Not Detect); Buprenorphine Scr Not Detected (Not Detect); Cannabinoid Screen Urine Not Detected (Not Detect); Cocaine Screen Urine POSITIVE (Not Detect); Fentanyl, urine POSITIVE (Not Detect); Methadone Screen, Urine Positive (Not Detect); Opiate Screen Urine POSITIVE (Not Detect); Oxycodone Screen Urine Not Detected (Not Detect); Phencyclidine Screen Urine Not Detected (Not Detect)
--- NOTE | 2023-12-03 18:53 | ED.GENADULT ---
HPI - General Adult General Chief complaint: Psychiatric Symptoms Stated complaint: SI Time Seen by Provider: 12/03/23 18:06 Source: patient, RN notes reviewed and old records reviewed Mode of arrival: ambulatory Limitations: no limitations History of Present Illness ED Provider: Coral DONALDSON narrative: 27-year-old female past medical history significant for bipolar disorder, depression, substance abuse presents for evaluation of depression with suicidal ideation. Patient reports that she stopped taking all of her psych medications about 3 months ago because she relapsed with cocaine and heroin. She reports injecting daily her last use was prior to arrival Patient states that she is having thoughts of ending her life by driving into a tree or into traffic She denies any fevers, chills. She endorses occasional auditory hallucinations and is unsure if she has any visual hallucinations Patient states ?I just can not keep living like this. ? Related Data Home Medications ?Medication ?Instructions ?Recorded ?Confirmed gabapentin 300 mg capsule 300 mg PO BID 10/30/23 11/03/23 lorazepam 0.5 mg tablet 0.5 mg PO BID PRN anxiety 10/30/23 11/03/23 methadone 10 mg/mL oral 70 mg PO DAILY 10/30/23 11/03/23 concentrate (Methadone Intensol) Previous Rx's ?Medication ?Instructions ?Recorded doxycycline monohydrate 100 mg 100 mg PO BID #14 caps 11/05/23 capsule cefuroxime axetil 250 mg tablet 250 mg PO BID #14 tabs 12/01/23 Allergies Allergy/AdvReac Type Severity Reaction Status Date / Time Penicillins [PENICILLINS] Allergy Unknown Hives Verified 12/03/23 17:58 haloperidol AdvReac Severe Anaphylaxis Verified 12/03/23 17:58 Review of Systems Constitutional: Constitutional: Denies body ache(s), Denies chills, Denies fever(s) and Denies headache(s) Eyes: Eyes: Denies blurry vision ENT: Denies headache(s) and Denies sore throat Cardiovascular: Cardiovascular: Denies chest pain and Denies dyspnea Respiratory: Respiratory: Denies cough and Denies dyspnea Gastrointestinal: Gastrointestinal: Denies abdominal pain, Denies nausea and Denies vomiting Musculoskeletal: Musculoskeletal: Denies back pain Integumentary/Breasts: Skin/Breast: Reports erythema and Reports sores Neurologic: Denies headache(s) [facility] Past Medical History Medical History Substance induced mood disorder Opioid use disorder Drug-induced psychotic disorder Asthma Social History Social History Household Members: None Household Members Other:: Homeless Housing: Homeless Housing Other:: patient stays in car Do you presently have visiting nurse or other home services: No Alcohol intake: current Alcohol intake frequency: does not drink Patient Tobacco Use Status: Current everyday Tobacco user Tobacco use type: Cigarette Cigarette Packs Per Day: 0 Cigarettes Per Day: 4 Years Smoked: 10 Smoked in Last 30 Days: Yes e-Cigarette/Vaping Use: Never Used Second Hand Smoke Exposure: Yes Use of substances other than those prescribed or required for medical reasons: Yes Substance Use Type: Crack/Cocaine and Heroin Substance Use Frequency: Daily Last Used Substance: Hours (ago) Advance Directives: No Advance Directives Information Provided: No Advance Directives Date on File: 03/05/22 Do you have a plan to hurt others: No Plan service: No Sexual orientation: Don't Know Physical Exam ED Vital Signs: Vital Signs - 24 hr 12/03/23 17:57 12/03/23 18:09 Temperature 97.3 F 97.3 F Pulse Rate 100 100 Respiratory Rate 18 18 Blood Pressure 154/99 H 154/99 H Pulse Oximetry 96 96 Oxygen Delivery Method Room Air Room Air BMI result Body Mass Index 30.0 Const General: healthy appearing, comfortable, no acute distress, alert and awake Nutritional Appearance: well nourished Orientation/consciousness: patient oriented x3 HENMT Head: Yes normocephalic and Yes atraumatic Throat: Yes posterior oropharynx normal Eyes Eyelids: Yes eyelids normal Conjunctivae: conjunctivae normal Sclerae: sclerae normal Corneas: corneas normal Pupils: Equal, round and reactive pupils present EOM: EOMs intact bilaterally Neck Neck: Yes full ROM Resp Effort & Inspection: normal respiratory effort, able to speak in complete sentences, no audible wheezes and not labored Auscultation: clear to auscultation bilaterally Cardio Rate: regular rate Rhythm: regular rhythm Skin Other: Multiple track garcia to both upper extremities from the wrist to about the level of the elbow. There was 1 small about 1-2 cm area of erythema to the left forearm. General skin exam: elasticity normal Neuro General: patient oriented x3 Cranial nerves: Yes Equal, round and reactive pupils present and Yes Bilaterally intact EOM present Cognition (Neuro): normal cognition Extrem Other: Moving all extremities well without any obvious deformities Psych Appearance: grossly normal Mental Status: mental status grossly normal Speech and movement: Normal speech and movement present Affect: Sad affect present Attitude: cooperative Thought process: Normal thought process present Thought content: Suicidality present and Depressive thoughts present Insight: Fair insight present (Psych) Judgement: Fair judgement present (Psych) Course Reevaluation(s) Reevaluation #1: Patient's workup reviewed, her labs were able to be drawn, she is medically cleared for care team evaluation due to suicidal ideation at this time Time: 22:52 Reevaluation #2: Patient was seen by the care team and will be a bed search for inpatient psychiatric care. She has on a section 12. Patient will be on a physician observation launch Time: 00:32 Medical Decision Making Medical Decision Making [facility] Narrative: 27-year-old female presents for evaluation depression with suicidal ideation. She has a significant history of substance abuse. Plan for care team evaluation once medically cleared. She is afebrile, slightly hypertensive, otherwise vital signs within normal limits. There is no evidence of sepsis but given the IV drug abuse and multiple track garcia went to draw blood culture Differential Diagnosis Differential Diagnoses: The differential diagnosis associated with the presentation includes Polysubstance abuse Depression Suicidal ideation Bipolar disorder Medication noncompliance Lab Data [facility] Lab Attestation statement: I reviewed the patient's lab results. There is no leukocytosis. There is no significant anemia. No left shift. Chemistries without any concerning abnormalities requiring intervention. Renal function normal limits, LFTs within normal limits Patient's urinalysis showed 2+ bacteria with nitrates and esterase. Also greater than 20 epithelial cells this is likely a contaminate. Plan to await urine culture as the patient is asymptomatic 12/03/23 22:25 12/03/23 22:25 Labs: Lab Results 12/03/23 12/03/23 Range/Units 18:20 22:25 WBC 6.3 (4.8-10.8) X10*3/uL RBC 5.31 D (4.20-5.50) X10*6/uL Hgb 13.0 D (12.0-16.0) g/dl Hct 40.0 D (37.0-47.0) % MCV 75.3 L (80.0-98.0) fL MCH 24.5 L (27.0-33.0) pg MCHC 32.5 (31.0-35.0) g/dl RDW 14.9 (11.0-16.0) % Plt Count 268 D (160-400) X10*3/uL MPV 11.1 (9.4-12.3) fL Immature Gran % (Auto) 0.2 (0.0-0.4) % Neut % (Auto) 51.8 (45-73) % Lymph % (Auto) 36.3 (20-40) % [place] % (Auto) 7.1 (2-11) % Eos % (Auto) 3.6 (0-4) % Baso % (Auto) 1.0 (0-2) % Lymph # (Auto) 2.3 (1.2-4.9) X10*3/uL [place] # (Auto) 0.5 (0.1-1.2) X10*3/uL Eos # (Auto) 0.2 (0.0-0.4) X10*3/uL Baso # (Auto) 0.1 (0.0-0.2) X10*3/uL Abs Immat Gran (auto) 0.01 (0.00-0.03) X10*3/uL Absolute Neuts (auto) 3.3 (2.0-8.3) x10*3/uL Absolute Nucleated RBC 0.000 (0.0-0.012) X10*3/uL Nucleated RBC % (auto) 0.0 (0.0-0.2) /100WBC Sodium 139 (135-145) mmol/L Potassium 3.6 (3.3-5.1) mmol/L Chloride 102 (96-108) mmol/L Carbon Dioxide 27 (22-29) mmol/L Anion Gap 14 (12-20) BUN 7 L (9-16) mg/dL Creatinine 0.97 (0.5-1.4) mg/dL Estim Creat Clear Calc 90.3 Estimated GFR > 60 Random Glucose 98 (60-115) mg/dL Calcium 9.7 (8.4-10.2) mg/dL Magnesium 2.3 (1.6-2.6) mg/dL Total Bilirubin 0.3 (0.0-1.0) mg/dL Direct Bilirubin 0.1 (0.0-0.5) mg/dL AST 16 (5-31) U/L ALT 13 (0-31) U/L Alkaline Phosphatase 116 (39-117) U/L Total Protein 8.2 H (6.5-8.0) g/dL Albumin 4.1 (3.5-5.0) g/dL Urine Color Yellow Urine Appearance Turbid Urine pH 6.0 (5.0-9.0) Ur Specific [place] 1.025 (1.005-1.025) Urine Protein 30 (1+) H (Neg-Trace) mg/dL Urine Glucose (UA) Negative (Negative) mg/dL Urine Ketones Negative (Negative) mg/dL Urine Blood Moderate (2+) H (Negative) Urine Nitrite Negative (Negative) Ur Leukocyte Esterase Large (3+) H (Negative) Urine RBC 6-10 H (0-2) /HPF Urine WBC >50 H (0-5) /HPF Ur Squamous Epith Cells >20 (0-2) /HPF Urine Bacteria 2+ (None Seen) Hyaline Casts 6-10 (0-2) /LPF Urine Test NEGATIVE (NEGATIVE) Urine Opiates Screen POSITIVE H (Not Detect) Ur Buprenorphine Scrn Not Detected (Not Detect) ng/mL Ur Oxycodone Screen Not Detected (Not Detect) ng/mL Urine Methadone Screen Positive H (Not Detect) ng/mL Urine Fentanyl Screen POSITIVE H (Not Detect) Ur Barbiturates Screen Not Detected (Not Detect) Ur Phencyclidine Scrn Not Detected (Not Detect) Ur Amphetamines Screen Not Detected (Not Detect) U Benzodiazepines Scrn Not Detected (Not Detect) Urine Cocaine Screen POSITIVE H (Not Detect) U Marijuana (THC) Screen Not Detected (Not Detect) Ethyl Alcohol < 10 mg/dL Discharge Plan Discharge Clinical Impression: Substance abuse, Depression with suicidal ideation Patient Disposition: Still a Patient Prescriptions: No Action lorazepam 0.5 mg tablet 0.5 mg PO BID PRN (Reason: anxiety) gabapentin 300 mg capsule 300 mg PO BID methadone [Methadone Intensol] 10 mg/mL Concentrate 70 mg PO DAILY cefuroxime axetil 250 mg tablet 250 mg PO BID Qty: 14 0RF doxycycline monohydrate 100 mg capsule 100 mg PO BID Qty: 14 0RF Interventions: [place]-Suicide Risk Severity Scale Last Done: 12/03/23 18:10 Print Language: Georgian
[2023-12-03 18:56] LABS: Bacteria Urine 2+ (None Seen); Squamous Epithelial Cell Urine >20 /HPF (0-2); UACC Culture Trigger YES; WBC Urine >50 /HPF (0-5)
--- NOTE | 2023-12-03 19:08 | PC.NURSE ---
patient appears in no distress asked t/w to change channels for her and asked for serveware to eat dinner. patient initially asked for t/w to get father from waiting room then went to phone ans asked him to leave seemingly d/t a ten minutes wait as we were receiving new patients.
[2023-12-03 22:32] LABS: MANUAL DIFF FLAG NO
[2023-12-03 22:35] LABS: Basophils Absolute Auto 0.1 X10*3/uL (0.0-0.2); Eosinophils Absolute Auto 0.2 X10*3/uL (0.0-0.4); Eosinophils Percent Auto 3.6 % (0-4); Imm Gran Abs Auto 0.01 X10*3/uL (0.00-0.03); Imm Gran Pct Auto 0.2 % (0.0-0.4); Lymphocytes Absolute Auto 2.3 X10*3/uL (1.2-4.9); Lymphocytes Percent Auto 36.3 % (20-40); Mean Corpuscular HGB Conc 32.5 g/dl (31.0-35.0); Mean Corpuscular Hemoglobin 24.5 pg (27.0-33.0); Mean Corpuscular Volume 75.3 fL (80.0-98.0); Mean Platelet Volume 11.1 fL (9.4-12.3); Monocytes Absolute Auto 0.5 X10*3/uL (0.1-1.2); Monocytes Percent Auto 7.1 % (2-11); Neutrophils Absolute Auto 3.3 x10*3/uL (2.0-8.3); Neutrophils Percent Auto 51.8 % (45-73); Platelet Count 268 X10*3/uL (160-400); Red Blood Count 5.31 X10*6/uL (4.20-5.50); Red Cell Distribution Width 14.9 % (11.0-16.0); White Blood Count 6.3 X10*3/uL (4.8-10.8)
[2023-12-03 22:49] LABS: Alanine Aminotransferase 13 U/L (0-31); Albumin Level 4.1 g/dL (3.5-5.0); Alkaline Phosphatase 116 U/L (39-117); Anion Gap 14 (12-20); Aspartate Amino Transferase 16 U/L (5-31); Bilirubin Direct 0.1 mg/dL (0.0-0.5); Bilirubin Total 0.3 mg/dL (0.0-1.0); Blood Urea Nitrogen 7 mg/dL (9-16); Calcium 9.7 mg/dL (8.4-10.2); Carbon Dioxide 27 mmol/L (22-29); Chloride 102 mmol/L (96-108); Creatinine Clr Calc Pharmacy 90.3; Estimated Glomerular Filt Rate > 60; Ethanol < 10 mg/dL; Glucose Random 98 mg/dL (60-115); Magnesium 2.3 mg/dL (1.6-2.6); Potassium 3.6 mmol/L (3.3-5.1); Sodium 139 mmol/L (135-145); Total Protein 8.2 g/dL (6.5-8.0)
--- NOTE | 2023-12-04 | ECG_ITS ---
Test Reason : check qt interval Blood Pressure : / mmHG Vent. Rate : 061 BPM Atrial Rate : 061 BPM P-R Int : 138 ms QRS Dur : 092 ms QT Int : 440 ms P-R-T Axes : 028 007 012 degrees QTc Int : 442 ms Normal sinus rhythm Normal ECG When compared with ECG of 01-DEC-2023 02:20, Vent. rate has decreased BY 31 BPM Nonspecific T wave abnormality no longer evident in Anterior leads Referred By: Generic ED Physician Electronically Signed By:LINETTE CRENSHAW MD
--- NOTE | 2023-12-04 00:46 | MHC.CARE ---
CARE Team assessed the pt and found her to meet IPLOC criteria. She is being held on a section 12 for safety and containment.
--- NOTE | 2023-12-04 06:13 | HE.PHANOTE ---
RE: methadone Last dose [facility] 70mg on 12/03/23 @2679
[2023-12-04 06:19] VITALS: BP 100/62; PULSE 63; RESP 16; TEMP 36.6; O2SAT 97
--- NOTE | 2023-12-04 07:05 | PC.NURSE ---
Assumed care of patient at 0645. Patient is observed to be sleeping in their bed. No distress observed and breathing is even and unlabored.
[2023-12-04] MEDS: methADONE HCl 20 MG/2 ML ORAL.CONC 70 MG PO (09:13)
[2023-12-04 14:00] VITALS: BP 115/55; PULSE 69; RESP 14; TEMP 36.4; O2SAT 97
[2023-12-04 14:38] VITALS: BMI 36.0
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
[2023-12-04] MEDS: hydrOXYzine HCL 25 MG TABLET PO (20:38)
[2023-12-04] MEDS: Gabapentin 300 MG CAPSULE PO (20:38)
[2023-12-04] MEDS: LORazepam 0.5 MG TABLET PO (20:39)
[2023-12-04] MEDS: traZODone HCL 100 MG TABLET PO (20:39)
[2023-12-04] MEDS: Nicotine Polacrilex 2 MG GUM 4 MG BUCCAL (20:46)
[2023-12-05 07:00] VITALS: BMI 36.0
[2023-12-05 08:00] VITALS: BP 108/59; PULSE 61; TEMP 36.5; O2SAT 98
[2023-12-05] MEDS: methADONE HCl 20 MG/2 ML ORAL.CONC 70 MG PO (08:20)
[2023-12-05] MEDS: Nicotine 21 MG PATCH.TD24 TRANSDERMA (08:44)
[2023-12-05] MEDS: ARIPiprazole 2 MG TABLET PO (08:45)
[2023-12-05] MEDS: Gabapentin 300 MG CAPSULE PO ×2 (08:45→21:44)
[2023-12-05] MEDS: FLUoxetine HCl 20 MG CAPSULE PO (08:45)
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
[2023-12-05] MEDS: LORazepam 0.5 MG TABLET PO ×2 (13:32→21:48)
--- NOTE | 2023-12-05 14:01 | MHC.CLN ---
RE: CONSULT FOR WT LOSS PT REPORTS 20# WT LOSS IN UNKNOWN TIMEFRAME CURRENT WT 98KG (12/05/23) PREVIOUS WT 90.7KG (10/13/22) PT WITH 8% NONSIGNIFICANT GAIN X 1 YEAR HT 5'5 IBW 125#+/-10% PT IS 173% IBW INDICATES OBESE FOR HT PT ALSO WITH POLYSUBSTANCE ABUSE WITH HOMELESSNESS AND OFF MEDS X 3 MONTHS PER PT WHICH CAN CONTRIBUTE TO WT FLUCTUATIONS AND FOOD INSECURITIES. ESTIMATED NUTRITION NEEDS (ENN) 1600KCALS, 70G PROTEIN, 2100ML FLUID DIET RX; REGULAR-APPROPRIATE PLAN NO S/S MALNUTRITION AT THIS TIME CONTINUE CURRENT CARE PLAN
[2023-12-05] MEDS: hydrOXYzine HCL 25 MG TABLET PO (17:02)
[2023-12-05] MEDS: OLANZapine 5 MG TABLET PO (17:02)
--- NOTE | 2023-12-05 19:00 | MHC.RECOVSUP ---
? Reason for consult Recovery Support o Current location: 319-1 o Identified substance use concern: Heroin - Support ? Intervention: o Community resources provided o Harm reduction discussion ? Plan: o Patient to follow up with [facility] after discharge ? Additional information: Met with patient and we talked about recovery and Harm reduction.. Patient stated that she wants to go to a [facility]. But does not want to go to [facility]. [facility] [place] [facility] her choice.
[2023-12-05 20:00] VITALS: BP 109/56; PULSE 68; TEMP 36.9; O2SAT 97
[2023-12-05] MEDS: traZODone HCL 100 MG TABLET PO (21:50)
[2023-12-06 07:30] VITALS: BP 122/67; PULSE 68; RESP 14; TEMP 36.9; O2SAT 97
[2023-12-06] MEDS: methADONE HCl 20 MG/2 ML ORAL.CONC 70 MG PO (07:52)
[2023-12-06] MEDS: Nicotine 21 MG PATCH.TD24 TRANSDERMA (09:10)
[2023-12-06] MEDS: Gabapentin 300 MG CAPSULE PO ×2 (09:10→21:31)
[2023-12-06] MEDS: ARIPiprazole 2 MG TABLET PO (09:10)
[2023-12-06] MEDS: FLUoxetine HCl 20 MG CAPSULE PO (09:10)
[2023-12-06] MEDS: LORazepam 0.5 MG TABLET PO ×2 (09:25→21:33)
[2023-12-06] MEDS: methADONE HCl 20 MG/2 ML ORAL.CONC 5 MG PO (11:36)
[2023-12-06] MEDS: hydrOXYzine HCL 25 MG TABLET PO (11:37)
[2023-12-06] MEDS: Nicotine Polacrilex 2 MG GUM 4 MG BUCCAL (13:01)
--- NOTE | 2023-12-06 16:27 | HO.PSYCHPN ---
Subjective Subjective Date of Service: 12/06/23 Reason For Visit: CRISIS Interim History: calm, cooperative. asking for increase in ativan and methadone dosing. methadone dosing increased. asks that outpt meds be verified with pharmacy, which is done. depressed, SI with no plan. per staff, c/o AVH. sad, withdrawn. taking meds. anxious. depressed. denies SI/HI. Mental Status Exam Mental Status Exam Narrative: Pt is alert and oriented; behavior is cooperative and calm; dressed in casual attire; mood is described as depressed ; eye contact appropriate; Speech is normal rate, volume and not pressured; thought process is organized and goal directed; Thought content is on tx. endorses SI without plan. no HI/AVH expressed Diagnostics Vital Signs (24Hr): Vital Signs - 24 hr 12/05/23 20:00 12/06/23 07:30 Temperature 98.4 F 98.5 F Pulse Rate 68 68 Respiratory Rate 14 Blood Pressure 109/56 L 122/67 Pulse Oximetry 97 97 Oxygen Delivery Method Room Air Room Air BMI result Body Mass Index 36.0 Labs 12/03/23 22:25 12/03/23 22:25 Medications Medications Current Medications Acetaminophen (Acetaminophen 325 Mg Tablet) 650 mg PO Q6H PRN PRN Reason: Headache/Pain Mild Scale (1-3) Al Hydroxide/Mg Hydroxide (Magnesium Hydrox/Alum Hydrox 30 Ml Oral.Susp) 30 ml PO Q6H PRN PRN Reason: Heartburn/Nausea Aripiprazole (Aripiprazole 10 Mg Tablet) 10 mg PO DAILY JOHN Fluoxetine HCl (Fluoxetine Hcl 20 Mg Capsule) 20 mg PO DAILY JOHN Last Admin: 12/06/23 09:10 Dose: 20 mg Gabapentin (Gabapentin 300 Mg Capsule) 300 mg PO BID JOHN Last Admin: 12/06/23 09:10 Dose: 300 mg Hydroxyzine HCl (Hydroxyzine Hcl 25 Mg Tablet) 25 mg PO Q6H PRN PRN Reason: Anxiety Last Admin: 12/06/23 11:37 Dose: 25 mg Lorazepam (Lorazepam 0.5 Mg Tablet) 0.5 mg PO BID PRN PRN Reason: Anxiety Last Admin: 12/06/23 09:25 Dose: 0.5 mg Magnesium Hydroxide (Milk Of Magnesia 30 Ml Oral.Susp) 30 ml PO DAILY PRN PRN Reason: Constipation Methadone HCl (Methadone Hcl 20 Mg/2 Ml Oral.Conc) 75 mg PO DAILY@0800 [facility] Nicotine (Nicotine 21 Mg Patch.Td24) 21 mg TRANSDERMA DAILY [facility] Last Admin: 12/06/23 09:10 Dose: 21 mg Nicotine Polacrilex (Nicotine Polacrilex Lozenge 4 Mg Lozenge) 4 mg BUCCAL Q2H PRN PRN Reason: Nicotine Cravings Olanzapine (Olanzapine 5 Mg Tablet) 5 mg PO TID PRN PRN Reason: agitation Last Admin: 12/05/23 17:02 Dose: 5 mg Trazodone HCl (Trazodone Hcl 100 Mg Tablet) 100 mg PO BEDTIME [facility] Last Admin: 12/05/23 21:50 Dose: 100 mg Allergies Allergies Allergy/AdvReac Type Severity Reaction Status Date / Time Penicillins [PENICILLINS] Allergy Unknown Hives Verified 12/03/23 17:58 haloperidol AdvReac Severe Anaphylaxis Verified 12/03/23 17:58 Assessment & Plan Assessment & Plan (1) MDD (major depressive disorder), recurrent episode, moderate: Status: Acute Code(s): F33.1 - Major depressive disorder, recurrent, moderate (2) PTSD (post-traumatic stress disorder): Status: Acute Code(s): F43.10 - Post-traumatic stress disorder, unspecified (3) Cocaine use disorder: Status: Acute Code(s): F14.10 - Cocaine abuse, uncomplicated (4) Opioid use disorder: Status: Acute Code(s): F11.90 - Opioid use, unspecified, uncomplicated Plan Patient is a 27-year-old female with history of MDD, PTSD, opiate use disorder, who self presented to [facility] due to auditory hallucinations and suicidal ideation secondary to increased depression. Plan: CV 15 min checks Continue home medications encourage groups referral to outpatient prescriber and therapist referral to substance abuse program discharge planning 12/05: increase methadone from 70 mg daily to 75 mg daily. pt most recently prescribed ativan 0.5 BID PRN; do not increase. outpt regimen was abilify 20 daily, seroquel 50 TID PRN severe anxiety, seroquel 100/200, hydroxyzine 50-100 QHS PRN insomnia. will work back toward home medications regimen. Reason for continued inpatient stay Substantial Risk for: harm to self, inability to function and rapid decompensation Time Spent With Patient Time: Total time managing care of this patient today _35___ minutes.
[2023-12-06] MEDS: OLANZapine 5 MG TABLET PO (17:56)
[2023-12-06] MEDS: Nicotine Polacrilex Lozenge 4 MG LOZENGE BUCCAL (17:56)
[2023-12-06 20:55] VITALS: BP 109/63; PULSE 75; RESP 18; TEMP 36.6; O2SAT 98
[2023-12-06] MEDS: traZODone HCL 100 MG TABLET PO (21:31)
[2023-12-07 08:00] VITALS: BP 112/57; PULSE 68; RESP 16; TEMP 36.8; O2SAT 98
[2023-12-07] MEDS: methADONE HCl 20 MG/2 ML ORAL.CONC 75 MG PO (08:08)
--- NOTE | 2023-12-07 08:15 | P.PNPSI_ITS ---
Subjective Subjective Date of Service: 12/07/23 Reason For Visit: CRISIS Interim History: Met with patient. Discussed with Nursing. Intermittent thoughts of suicide and still feeling depressed and tearful. Does feel safe and supported on the unit. Does feel paranoid at times regarding patients and that they might be talking about her and still hearing voices. Non command. Reports suicidal thoughts today are less than yesterday. Discussed med changes- focus on antipsychotics, ratehr than ativan, consistent with team notes 12/05: increase methadone from 70 mg daily to 75 mg daily. pt most recently prescribed ativan 0.5 BID PRN; do not increase. outpt regimen was abilify 20 daily, seroquel 50 TID PRN severe anxiety, seroquel 100/200, hydroxyzine 50-100 QHS PRN insomnia. will work back toward home medications regimen. Review of Systems Review of Systems Unremarkable Mental Status Exam Mental Status Exam Narrative: Pt is alert and oriented; behavior is cooperative and calm; dressed in casual attire; mood is described as depressed ; eye contact appropriate; Speech is normal rate, volume and not pressured; thought process is organized and goal directed; Thought content is on tx. endorses SI without plan. Feeling paranoid with AH (non command). Diagnostics Vital Signs (24Hr): Vital Signs - 24 hr 12/06/23 20:55 Temperature 97.9 F Pulse Rate 75 Respiratory Rate 18 Blood Pressure 109/63 Pulse Oximetry 98 Oxygen Delivery Method Room Air BMI result Body Mass Index 36.0 Labs 12/03/23 22:25 12/03/23 22:25 Medications Medications Current Medications Acetaminophen (Acetaminophen 325 Mg Tablet) 650 mg PO Q6H PRN PRN Reason: Headache/Pain Mild Scale (1-3) Al Hydroxide/Mg Hydroxide (Magnesium Hydrox/Alum Hydrox 30 Ml Oral.Susp) 30 ml PO Q6H PRN PRN Reason: Heartburn/Nausea Aripiprazole (Aripiprazole 10 Mg Tablet) 10 mg PO DAILY JOHN Fluoxetine HCl (Fluoxetine Hcl 20 Mg Capsule) 20 mg PO DAILY JOHN Last Admin: 12/06/23 09:10 Dose: 20 mg Gabapentin (Gabapentin 300 Mg Capsule) 300 mg PO BID JOHN Last Admin: 12/06/23 21:31 Dose: 300 mg Hydroxyzine HCl (Hydroxyzine Hcl 25 Mg Tablet) 25 mg PO Q6H PRN PRN Reason: Anxiety Last Admin: 12/06/23 11:37 Dose: 25 mg Lorazepam (Lorazepam 0.5 Mg Tablet) 0.5 mg PO BID PRN PRN Reason: Anxiety Last Admin: 12/06/23 21:33 Dose: 0.5 mg Magnesium Hydroxide (Milk Of Magnesia 30 Ml Oral.Susp) 30 ml PO DAILY PRN PRN Reason: Constipation Methadone HCl (Methadone Hcl 20 Mg/2 Ml Oral.Conc) 75 mg PO DAILY@0800 [facility] Last Admin: 12/07/23 08:08 Dose: 75 mg Nicotine (Nicotine 21 Mg Patch.Td24) 21 mg TRANSDERMA DAILY [facility] Last Admin: 12/06/23 09:10 Dose: 21 mg Nicotine Polacrilex (Nicotine Polacrilex Lozenge 4 Mg Lozenge) 4 mg BUCCAL Q2H PRN PRN Reason: Nicotine Cravings Last Admin: 12/06/23 17:56 Dose: 4 mg Olanzapine (Olanzapine 5 Mg Tablet) 5 mg PO TID PRN PRN Reason: agitation Last Admin: 12/06/23 17:56 Dose: 5 mg Trazodone HCl (Trazodone Hcl 100 Mg Tablet) 100 mg PO BEDTIME [facility] Last Admin: 12/06/23 21:31 Dose: 100 mg Allergies Allergies Allergy/AdvReac Type Severity Reaction Status Date / Time Penicillins [PENICILLINS] Allergy Unknown Hives Verified 12/03/23 17:58 haloperidol AdvReac Severe Anaphylaxis Verified 12/03/23 17:58 Assessment & Plan Assessment & Plan (1) MDD (major depressive disorder), recurrent episode, moderate: Status: Acute Code(s): F33.1 - Major depressive disorder, recurrent, moderate (2) PTSD (post-traumatic stress disorder): Status: Acute Code(s): F43.10 - Post-traumatic stress disorder, unspecified (3) Cocaine use disorder: Status: Acute Code(s): F14.10 - Cocaine abuse, uncomplicated (4) Opioid use disorder: Status: Acute Code(s): F11.90 - Opioid use, unspecified, uncomplicated Plan Patient is a 27-year-old female with history of MDD, PTSD, opiate use disorder, who self presented to [facility] due to auditory hallucinations and suicidal ideation secondary to increased depression. Plan: CV 15 min checks Continue home medications encourage groups referral to outpatient prescriber and therapist referral to substance abuse program discharge planning 12/05: increase methadone from 70 mg daily to 75 mg daily. pt most recently prescribed ativan 0.5 BID PRN; do not increase. outpt regimen was abilify 20 daily, seroquel 50 TID PRN severe anxiety, seroquel 100/200, hydroxyzine 50-100 QHS PRN insomnia. will work back toward home medications regimen. 12/07/2023: Add back Seroquel 100 mg at bedtime, hydroxyzine 100 mg as needed at bedtime, Seroquel 50 mg as needed 3 times per day. Reason for continued inpatient stay Substantial Risk for: harm to self Time Spent With Patient Time: Total time managing care of this patient today ____ minutes.
[2023-12-07] MEDS: Nicotine 21 MG PATCH.TD24 TRANSDERMA (08:46)
[2023-12-07] MEDS: LORazepam 0.5 MG TABLET PO ×2 (08:48→18:18)
[2023-12-07] MEDS: Gabapentin 300 MG CAPSULE PO ×2 (08:49→20:23)
[2023-12-07] MEDS: ARIPiprazole 10 MG TABLET PO (08:49)
[2023-12-07] MEDS: FLUoxetine HCl 20 MG CAPSULE PO (08:49)
[2023-12-07] MEDS: Nicotine Polacrilex Lozenge 4 MG LOZENGE BUCCAL ×3 (09:18→17:18)
[2023-12-07] MEDS: hydrOXYzine HCL 25 MG TABLET PO (15:37)
[2023-12-07] MEDS: traZODone HCL 100 MG TABLET PO (20:23)
[2023-12-07] MEDS: QUEtiapine Fumarate 100 MG TABLET PO (20:23)
[2023-12-07 21:00] VITALS: BP 103/63; PULSE 86; RESP 18; TEMP 36.4; O2SAT 97
[2023-12-07] MEDS: hydrOXYzine HCL 50 MG TABLET 100 MG PO (21:22)
[2023-12-08] MEDS: methADONE HCl 20 MG/2 ML ORAL.CONC 75 MG PO (08:00)
[2023-12-08 08:12] VITALS: BP 110/67; PULSE 82; RESP 16; TEMP 36.9; O2SAT 98
[2023-12-08 08:15] VITALS: BP 110/64; PULSE 98; RESP 18; TEMP 36.9; O2SAT 98
[2023-12-08] MEDS: FLUoxetine HCl 20 MG CAPSULE PO (09:28)
[2023-12-08] MEDS: Gabapentin 300 MG CAPSULE PO ×2 (09:29→20:41)
[2023-12-08] MEDS: ARIPiprazole 10 MG TABLET PO (09:29)
[2023-12-08] MEDS: LORazepam 0.5 MG TABLET PO ×2 (09:29→21:54)
--- NOTE | 2023-12-08 10:30 | HO.PSYCHPN ---
Subjective Subjective Date of Service: 12/08/23 Reason For Visit: CRISIS Interim History: Nausea today. Intermittent thoughts of suicide and still feeling depressed and tearful. Does feel safe and supported on the unit. Still paranoid and AH. SI (less than admission). Discussed ativan dosing ie no adjustment in dosing. Wll continue to add back seroquel. As previously noted outpatient regimen was abilify 20 daily, seroquel 50 TID PRN severe anxiety, seroquel 100/200, hydroxyzine 50-100 QHS PRN insomnia. Medication Compliance: Yes Side effects from medications: No Attending Groups: No Review of Systems Acute medical concerns: No Review of Systems Review of Systems nausea Mental Status Exam Mental Status Exam Narrative: Pt is alert and oriented; behavior is cooperative and calm; dressed in casual attire; mood is described as depressed ; eye contact appropriate; Speech is normal rate, volume and not pressured; thought process is organized and goal directed; Thought content is on tx. endorses SI without plan. Feeling paranoid with AH (non command). Diagnostics Vital Signs (24Hr): Vital Signs - 24 hr 12/07/23 21:00 12/08/23 08:12 12/08/23 08:15 Temperature 97.5 F 98.5 F 98.5 F Pulse Rate 86 82 98 Respiratory Rate 18 16 18 Blood Pressure 103/63 110/67 110/64 Pulse Oximetry 97 98 98 Oxygen Delivery Method Room Air Room Air Room Air BMI result Body Mass Index 36.0 Labs 12/03/23 22:25 12/03/23 22:25 Medications Medications Current Medications Acetaminophen (Acetaminophen 325 Mg Tablet) 650 mg PO Q6H PRN PRN Reason: Headache/Pain Mild Scale (1-3) Al Hydroxide/Mg Hydroxide (Magnesium Hydrox/Alum Hydrox 30 Ml Oral.Susp) 30 ml PO Q6H PRN PRN Reason: Heartburn/Nausea Aripiprazole (Aripiprazole 10 Mg Tablet) 10 mg PO DAILY [facility] Last Admin: 12/08/23 09:29 Dose: 10 mg Fluoxetine HCl (Fluoxetine Hcl 20 Mg Capsule) 20 mg PO DAILY [facility] Last Admin: 12/08/23 09:28 Dose: 20 mg Gabapentin (Gabapentin 300 Mg Capsule) 300 mg PO BID [facility] Last Admin: 12/08/23 09:29 Dose: 300 mg Hydroxyzine HCl (Hydroxyzine Hcl 25 Mg Tablet) 25 mg PO Q6H PRN PRN Reason: Anxiety Last Admin: 12/07/23 15:37 Dose: 25 mg Hydroxyzine HCl (Hydroxyzine Hcl 50 Mg Tablet) 100 mg PO BEDTIME PRN PRN Reason: insomnia Last Admin: 12/07/23 21:22 Dose: 100 mg Lorazepam (Lorazepam 0.5 Mg Tablet) 0.5 mg PO BID PRN PRN Reason: Anxiety Last Admin: 12/08/23 09:29 Dose: 0.5 mg Magnesium Hydroxide (Milk Of Magnesia 30 Ml Oral.Susp) 30 ml PO DAILY PRN PRN Reason: Constipation Methadone HCl (Methadone Hcl 20 Mg/2 Ml Oral.Conc) 75 mg PO DAILY@0800 [facility] Last Admin: 12/08/23 08:00 Dose: 75 mg Nicotine (Nicotine 21 Mg Patch.Td24) 21 mg TRANSDERMA DAILY [facility] Last Admin: 12/07/23 08:46 Dose: 21 mg Nicotine Polacrilex (Nicotine Polacrilex Lozenge 4 Mg Lozenge) 4 mg BUCCAL Q2H PRN PRN Reason: Nicotine Cravings Last Admin: 12/07/23 17:18 Dose: 4 mg Olanzapine (Olanzapine 5 Mg Tablet) 5 mg PO TID PRN PRN Reason: agitation Last Admin: 12/06/23 17:56 Dose: 5 mg Quetiapine Fumarate (Quetiapine Fumarate 100 Mg Tablet) 100 mg PO BEDTIME [facility] Last Admin: 12/07/23 20:23 Dose: 100 mg Quetiapine Fumarate (Quetiapine Fumarate 50 Mg Tablet) 50 mg PO TID PRN PRN Reason: severe anxiety or AH Trazodone HCl (Trazodone Hcl 100 Mg Tablet) 100 mg PO BEDTIME [facility] Last Admin: 12/07/23 20:23 Dose: 100 mg Allergies Allergies Allergy/AdvReac Type Severity Reaction Status Date / Time Penicillins [PENICILLINS] Allergy Unknown Hives Verified 12/03/23 17:58 haloperidol AdvReac Severe Anaphylaxis Verified 12/03/23 17:58 Assessment & Plan Assessment & Plan (1) MDD (major depressive disorder), recurrent episode, moderate: Status: Acute Code(s): F33.1 - Major depressive disorder, recurrent, moderate (2) PTSD (post-traumatic stress disorder): Status: Acute Code(s): F43.10 - Post-traumatic stress disorder, unspecified (3) Cocaine use disorder: Status: Acute Code(s): F14.10 - Cocaine abuse, uncomplicated (4) Opioid use disorder: Status: Acute Code(s): F11.90 - Opioid use, unspecified, uncomplicated Plan Patient is a 27-year-old female with history of MDD, PTSD, opiate use disorder, who self presented [place] [facility] due to auditory hallucinations and suicidal ideation secondary to increased depression. Plan: CV 15 min checks Continue home medications encourage groups referral to outpatient prescriber and therapist referral to substance abuse program discharge planning 12/05: increase methadone from 70 mg daily to 75 mg daily. pt most recently prescribed ativan 0.5 BID PRN; do not increase. outpt regimen was abilify 20 daily, seroquel 50 TID PRN severe anxiety, seroquel 100/200, hydroxyzine 50-100 QHS PRN insomnia. will work back toward home medications regimen. 12/07/2023: Add back Seroquel 100 mg at bedtime, hydroxyzine 100 mg as needed at bedtime, Seroquel 50 mg as needed 3 times per day. 12/07: increase seroquel to 200 at bedtime. Clarified no dose adjustment in ativan with patient. Reason for continued inpatient stay Substantial Risk for: harm to self and inability to function Time Spent With Patient Time: Total time managing care of this patient today ____ minutes.
[2023-12-08] MEDS: QUEtiapine Fumarate 50 MG TABLET PO (13:15)
[2023-12-08] MEDS: OLANZapine 5 MG TABLET PO (16:38)
[2023-12-08 20:00] VITALS: BP 125/60; PULSE 84; RESP 18; TEMP 36.4; O2SAT 97
[2023-12-08] MEDS: Nicotine Polacrilex Lozenge 4 MG LOZENGE BUCCAL (20:39)
[2023-12-08] MEDS: traZODone HCL 100 MG TABLET PO (20:41)
[2023-12-08] MEDS: QUEtiapine Fumarate 200 MG TABLET PO (20:41)
[2023-12-08] MEDS: hydrOXYzine HCL 50 MG TABLET 100 MG PO (21:54)
[2023-12-09 07:15] VITALS: BP 112/64; PULSE 75; RESP 16; TEMP 36.6; O2SAT 98
[2023-12-09] MEDS: methADONE HCl 20 MG/2 ML ORAL.CONC 75 MG PO (07:53)
[2023-12-09] MEDS: Nicotine 21 MG PATCH.TD24 TRANSDERMA (08:20)
[2023-12-09] MEDS: FLUoxetine HCl 20 MG CAPSULE PO (08:22)
[2023-12-09] MEDS: ARIPiprazole 10 MG TABLET PO (08:22)
[2023-12-09] MEDS: LORazepam 0.5 MG TABLET PO ×2 (08:22→20:41)
[2023-12-09] MEDS: Gabapentin 300 MG CAPSULE PO ×2 (08:22→20:38)
[2023-12-09] MEDS: Nicotine Polacrilex Lozenge 4 MG LOZENGE BUCCAL ×3 (09:13→22:25)
[2023-12-09] MEDS: ARIPiprazole 5 MG TABLET PO (11:41)
[2023-12-09] MEDS: QUEtiapine Fumarate 50 MG TABLET PO ×2 (11:41→16:20)
[2023-12-09] MEDS: Ondansetron ODT 8 MG TAB.RAPDIS TRANSLINGU (14:13)
[2023-12-09] MEDS: hydrOXYzine HCL 25 MG TABLET PO (16:21)
[2023-12-09] MEDS: OLANZapine 5 MG TABLET PO (16:21)
[2023-12-09 20:00] VITALS: BP 111/62; PULSE 90; RESP 16; TEMP 36.5; O2SAT 96
[2023-12-09] MEDS: QUEtiapine Fumarate 200 MG TABLET PO (20:37)
[2023-12-09] MEDS: traZODone HCL 100 MG TABLET PO (20:38)
--- NOTE | 2023-12-09 21:31 | HO.PSYCHPN ---
Subjective Subjective Date of Service: 12/09/23 Reason For Visit: CRISIS Interim History: depressed, c/o AH. would like abilify to be increased to 20 mg daily, her outpt dose. wants to speak with her provider at [facility], [place], [place] increasing her ativan. per staff, not attending groups. dep/anx 8. +SI saturday morning, awakened by [facility]. n/v yesterday. +meds. isolative. safe. Mental Status Exam Mental Status Exam Narrative: Pt is alert and oriented; behavior is cooperative and calm; dressed in casual attire; mood is described as depressed ; eye contact appropriate; Speech is normal rate, volume and not pressured; thought process is organized and goal directed; Thought content is on tx. endorses SI without plan. +AH. no HI/VH expressed Diagnostics Vital Signs (24Hr): Vital Signs - 24 hr 12/09/23 07:15 12/09/23 20:00 Temperature 97.9 F 97.7 F Pulse Rate 75 90 Respiratory Rate 16 16 Blood Pressure 112/64 111/62 Pulse Oximetry 98 96 Oxygen Delivery Method Room Air Room Air BMI result Body Mass Index 36.0 Labs 12/03/23 22:25 12/03/23 22:25 Medications Medications Current Medications Acetaminophen (Acetaminophen 325 Mg Tablet) 650 mg PO Q6H PRN PRN Reason: Headache/Pain Mild Scale (1-3) Al Hydroxide/Mg Hydroxide (Magnesium Hydrox/Alum Hydrox 30 Ml Oral.Susp) 30 ml PO Q6H PRN PRN Reason: Heartburn/Nausea Aripiprazole (Aripiprazole 20 Mg Tablet) 20 mg PO DAILY [facility] Fluoxetine HCl (Fluoxetine Hcl 20 Mg Capsule) 20 mg PO DAILY [facility] Last Admin: 12/09/23 08:22 Dose: 20 mg Gabapentin (Gabapentin 300 Mg Capsule) 300 mg PO BID [facility] Last Admin: 12/09/23 20:38 Dose: 300 mg Hydroxyzine HCl (Hydroxyzine Hcl 25 Mg Tablet) 25 mg PO Q6H PRN PRN Reason: Anxiety Last Admin: 12/09/23 16:21 Dose: 25 mg Hydroxyzine HCl (Hydroxyzine Hcl 50 Mg Tablet) 100 mg PO BEDTIME PRN PRN Reason: insomnia Last Admin: 12/08/23 21:54 Dose: 100 mg Lorazepam (Lorazepam 0.5 Mg Tablet) 0.5 mg PO BID PRN PRN Reason: Anxiety Last Admin: 12/09/23 20:41 Dose: 0.5 mg Magnesium Hydroxide (Milk Of Magnesia 30 Ml Oral.Susp) 30 ml PO DAILY PRN PRN Reason: Constipation Methadone HCl (Methadone Hcl 20 Mg/2 Ml Oral.Conc) 75 mg PO DAILY@0800 [facility] Last Admin: 12/09/23 07:53 Dose: 75 mg Nicotine (Nicotine 21 Mg Patch.Td24) 21 mg TRANSDERMA DAILY [facility] Last Admin: 12/09/23 08:20 Dose: 21 mg Nicotine Polacrilex (Nicotine Polacrilex Lozenge 4 Mg Lozenge) 4 mg BUCCAL Q2H PRN PRN Reason: Nicotine Cravings Last Admin: 12/09/23 16:21 Dose: 4 mg Olanzapine (Olanzapine 5 Mg Tablet) 5 mg PO TID PRN PRN Reason: agitation Last Admin: 12/09/23 16:21 Dose: 5 mg Ondansetron HCl (Ondansetron Odt 8 Mg Tab.Rapdis) 8 mg TRANSLINGU Q8H PRN PRN Reason: Nausea and Vomiting Last Admin: 12/09/23 14:13 Dose: 8 mg Quetiapine Fumarate (Quetiapine Fumarate 50 Mg Tablet) 50 mg PO TID PRN PRN Reason: severe anxiety or AH Last Admin: 12/09/23 16:20 Dose: 50 mg Quetiapine Fumarate (Quetiapine Fumarate 200 Mg Tablet) 200 mg PO BEDTIME [facility] Last Admin: 12/09/23 20:37 Dose: 200 mg Trazodone HCl (Trazodone Hcl 100 Mg Tablet) 100 mg PO BEDTIME [facility] Last Admin: 12/09/23 20:38 Dose: 100 mg Allergies Allergies Allergy/AdvReac Type Severity Reaction Status Date / Time Penicillins [PENICILLINS] Allergy Unknown Hives Verified 12/03/23 17:58 haloperidol AdvReac Severe Anaphylaxis Verified 12/03/23 17:58 Assessment & Plan Assessment & Plan (1) MDD (major depressive disorder), recurrent episode, moderate: Status: Acute Code(s): F33.1 - Major depressive disorder, recurrent, moderate (2) PTSD (post-traumatic stress disorder): Status: Acute Code(s): F43.10 - Post-traumatic stress disorder, unspecified (3) Cocaine use disorder: Status: Acute Code(s): F14.10 - Cocaine abuse, uncomplicated (4) Opioid use disorder: Status: Acute Code(s): F11.90 - Opioid use, unspecified, uncomplicated Plan Patient is a 27-year-old female with history of MDD, PTSD, opiate use disorder, who self presented to [facility] ER due to auditory hallucinations and suicidal ideation secondary to increased depression. Plan: CV 15 min checks Continue home medications encourage groups referral to outpatient prescriber and therapist referral to substance abuse program discharge planning 12/05: increase methadone from 70 mg daily to 75 mg daily. pt most recently prescribed ativan 0.5 BID PRN; do not increase. outpt regimen was abilify 20 daily, seroquel 50 TID PRN severe anxiety, seroquel 100/200, hydroxyzine 50-100 QHS PRN insomnia. will work back toward home medications regimen. 12/07/2023: Add back Seroquel 100 mg at bedtime, hydroxyzine 100 mg as needed at bedtime, Seroquel 50 mg as needed 3 times per day. 12/07: increase seroquel to 200 at bedtime. Clarified no dose adjustment in ativan with patient. 12/08: increase abilify to 20 mg, pt's prior outpt dose. continues depressed, +AH. Reason for continued inpatient stay Substantial Risk for: inability to function Time Spent With Patient Time: Total time managing care of this patient today ____ minutes.
[2023-12-10 08:00] VITALS: BP 108/55; PULSE 78; RESP 16; TEMP 36.9; O2SAT 98
[2023-12-10] MEDS: methADONE HCl 20 MG/2 ML ORAL.CONC 75 MG PO (08:02)
[2023-12-10] MEDS: Nicotine 21 MG PATCH.TD24 TRANSDERMA (08:33)
[2023-12-10] MEDS: Gabapentin 300 MG CAPSULE PO ×2 (08:34→21:08)
[2023-12-10] MEDS: ARIPiprazole 20 MG TABLET PO (08:35)
[2023-12-10] MEDS: FLUoxetine HCl 20 MG CAPSULE PO (08:35)
[2023-12-10] MEDS: Magnesium Hydrox/Alum Hydrox 30 ML ORAL.SUSP PO (09:39)
[2023-12-10] MEDS: LORazepam 0.5 MG TABLET PO ×2 (10:02→18:12)
[2023-12-10] MEDS: Ondansetron ODT 8 MG TAB.RAPDIS TRANSLINGU ×2 (10:02→17:09)
[2023-12-10] MEDS: Perphenazine 4 MG TABLET PO (11:10)
--- NOTE | 2023-12-10 14:38 | HO.PSYCHPN ---
Subjective Subjective Date of Service: 12/10/23 Reason For Visit: CRISIS Interim History: c/o ongoing bothersome AH. agreeable to DC seroquel and try higher potency medication, trilafon, PRN. per staff, vomited after lunch. taking meds. not attending groups. increased anxiety on eves. appeared to have slept 8 hours. Mental Status Exam Mental Status Exam Narrative: Pt is alert and oriented; behavior is cooperative and calm; dressed in casual attire; mood is described as depressed ; eye contact appropriate; Speech is normal rate, volume and not pressured; thought process is organized and goal directed; Thought content is on tx. endorses SI without plan. +AH. no HI/VH expressed Diagnostics Vital Signs (24Hr): Vital Signs - 24 hr 12/09/23 20:00 12/10/23 08:00 Temperature 97.7 F 98.4 F Pulse Rate 90 78 Respiratory Rate 16 16 Blood Pressure 111/62 108/55 L Pulse Oximetry 96 98 Oxygen Delivery Method Room Air Room Air BMI result Body Mass Index 36.0 Labs 12/03/23 22:25 12/03/23 22:25 Medications Medications Current Medications Acetaminophen (Acetaminophen 325 Mg Tablet) 650 mg PO Q6H PRN PRN Reason: Headache/Pain Mild Scale (1-3) Al Hydroxide/Mg Hydroxide (Magnesium Hydrox/Alum Hydrox 30 Ml Oral.Susp) 30 ml PO Q6H PRN PRN Reason: Heartburn/Nausea Last Admin: 12/10/23 09:39 Dose: 30 ml Aripiprazole (Aripiprazole 20 Mg Tablet) 20 mg PO DAILY [facility] Last Admin: 12/10/23 08:35 Dose: 20 mg Fluoxetine HCl (Fluoxetine Hcl 20 Mg Capsule) 20 mg PO DAILY [facility] Last Admin: 12/10/23 08:35 Dose: 20 mg Gabapentin (Gabapentin 300 Mg Capsule) 300 mg PO BID [facility] Last Admin: 12/10/23 08:34 Dose: 300 mg Hydroxyzine HCl (Hydroxyzine Hcl 25 Mg Tablet) 25 mg PO Q6H PRN PRN Reason: Anxiety Last Admin: 12/09/23 16:21 Dose: 25 mg Hydroxyzine HCl (Hydroxyzine Hcl 50 Mg Tablet) 100 mg PO BEDTIME PRN PRN Reason: insomnia Last Admin: 12/08/23 21:54 Dose: 100 mg Lorazepam (Lorazepam 0.5 Mg Tablet) 0.5 mg PO BID PRN PRN Reason: Anxiety Last Admin: 12/10/23 10:02 Dose: 0.5 mg Magnesium Hydroxide (Milk Of Magnesia 30 Ml Oral.Susp) 30 ml PO DAILY PRN PRN Reason: Constipation Methadone HCl (Methadone Hcl 20 Mg/2 Ml Oral.Conc) 75 mg PO DAILY@0800 [facility] Last Admin: 12/10/23 08:02 Dose: 75 mg Nicotine (Nicotine 21 Mg Patch.Td24) 21 mg TRANSDERMA DAILY [facility] Last Admin: 12/10/23 08:33 Dose: 21 mg Nicotine Polacrilex (Nicotine Polacrilex Lozenge 4 Mg Lozenge) 4 mg BUCCAL Q2H PRN PRN Reason: Nicotine Cravings Last Admin: 12/09/23 22:25 Dose: 4 mg Olanzapine (Olanzapine 5 Mg Tablet) 5 mg PO TID PRN PRN Reason: agitation Last Admin: 12/09/23 16:21 Dose: 5 mg Ondansetron HCl (Ondansetron Odt 8 Mg Tab.Rapdis) 8 mg TRANSLINGU Q8H PRN PRN Reason: Nausea and Vomiting Last Admin: 12/10/23 10:02 Dose: 8 mg Perphenazine (Perphenazine 4 Mg Tablet) 4 mg PO Q4H PRN PRN Reason: AH Last Admin: 12/10/23 11:10 Dose: 4 mg Quetiapine Fumarate (Quetiapine Fumarate 200 Mg Tablet) 200 mg PO BEDTIME [facility] Last Admin: 12/09/23 20:37 Dose: 200 mg Trazodone HCl (Trazodone Hcl 100 Mg Tablet) 100 mg PO BEDTIME [facility] Last Admin: 12/09/23 20:38 Dose: 100 mg Allergies Allergies Allergy/AdvReac Type Severity Reaction Status Date / Time Penicillins [PENICILLINS] Allergy Unknown Hives Verified 12/03/23 17:58 haloperidol AdvReac Severe Anaphylaxis Verified 12/03/23 17:58 Assessment & Plan Assessment & Plan (1) MDD (major depressive disorder), recurrent episode, moderate: Status: Acute Code(s): F33.1 - Major depressive disorder, recurrent, moderate (2) PTSD (post-traumatic stress disorder): Status: Acute Code(s): F43.10 - Post-traumatic stress disorder, unspecified (3) Cocaine use disorder: Status: Acute Code(s): F14.10 - Cocaine abuse, uncomplicated (4) Opioid use disorder: Status: Acute Code(s): F11.90 - Opioid use, unspecified, uncomplicated Plan Patient is a 27-year-old female with history of MDD, PTSD, opiate use disorder, who self presented to [facility] due to auditory hallucinations and suicidal ideation secondary to increased depression. Plan: CV 15 min checks Continue home medications encourage groups referral to outpatient prescriber and therapist referral to substance abuse program discharge planning 12/05: increase methadone from 70 mg daily to 75 mg daily. pt most recently prescribed ativan 0.5 BID PRN; do not increase. outpt regimen was abilify 20 daily, seroquel 50 TID PRN severe anxiety, seroquel 100/200, hydroxyzine 50-100 QHS PRN insomnia. will work back toward home medications regimen. 12/07/2023: Add back Seroquel 100 mg at bedtime, hydroxyzine 100 mg as needed at bedtime, Seroquel 50 mg as needed 3 times per day. 12/07: increase seroquel to 200 at bedtime. Clarified no dose adjustment in ativan with patient. 12/08: increase abilify to 20 mg, pt's prior outpt dose. continues depressed, +AH. 12/09: intrusive AH persist. DC seroquel PRNs as ineffective, trial higher potency medication, perphenazine 4 mg PRN. otherwise continue current mgmt. Reason for continued inpatient stay Substantial Risk for: harm to self, inability to function and rapid decompensation Time Spent With Patient Time: Total time managing care of this patient today ____ minutes.
[2023-12-10] MEDS: hydrOXYzine HCL 25 MG TABLET PO (15:57)
[2023-12-10] MEDS: Nicotine Polacrilex Lozenge 4 MG LOZENGE BUCCAL ×2 (15:58→19:36)
[2023-12-10] MEDS: QUEtiapine Fumarate 50 MG TABLET PO (18:11)
[2023-12-10] MEDS: OLANZapine 5 MG TABLET PO (19:36)
[2023-12-10 20:00] VITALS: BP 112/66; PULSE 80; RESP 16; TEMP 36.8; O2SAT 98
[2023-12-10] MEDS: traZODone HCL 100 MG TABLET PO (21:08)
[2023-12-10] MEDS: QUEtiapine Fumarate 200 MG TABLET PO (21:08)
[2023-12-11] MEDS: OLANZapine 5 MG TABLET PO (00:53)
[2023-12-11] MEDS: hydrOXYzine HCL 50 MG TABLET 100 MG PO ×2 (00:53→20:13)
--- NOTE | 2023-12-11 01:01 | PC.NURSE ---
12/11/23 Pt given zyprexa d/t mild agitation d/t not being able to sleep.
[2023-12-11 08:00] VITALS: BP 99/56; PULSE 74; RESP 18; TEMP 36.9; O2SAT 96
[2023-12-11] MEDS: methADONE HCl 20 MG/2 ML ORAL.CONC 75 MG PO (08:00)
[2023-12-11] MEDS: Nicotine 21 MG PATCH.TD24 TRANSDERMA (08:23)
[2023-12-11] MEDS: Ondansetron ODT 8 MG TAB.RAPDIS TRANSLINGU (08:23)
[2023-12-11] MEDS: Gabapentin 300 MG CAPSULE PO ×2 (08:23→20:13)
[2023-12-11] MEDS: ARIPiprazole 20 MG TABLET PO (08:24)
[2023-12-11] MEDS: FLUoxetine HCl 20 MG CAPSULE PO (08:24)
[2023-12-11] MEDS: LORazepam 0.5 MG TABLET PO ×2 (09:31→16:55)
--- NOTE | 2023-12-11 13:17 | P.PNPSI_ITS ---
Subjective Subjective Date of Service: 12/11/23 Reason For Visit: CRISIS Interim History: calm, cooperative. c/o AH and depression, also shadows. AH derogatory. per staff, said yesterday re AH, there's no point in living like this. appeared to have slept for 7 hours. Mental Status Exam Mental Status Exam Narrative: Pt is alert and oriented; behavior is cooperative and calm; dressed in casual attire; mood is described as depressed ; eye contact appropriate; Speech is normal rate, volume and not pressured; thought process is organized and goal directed; Thought content is on tx. endorses SI without plan. +AVH. no HI expressed Diagnostics Vital Signs (24Hr): Vital Signs - 24 hr 12/10/23 20:00 12/11/23 08:00 Temperature 98.2 F 98.4 F Pulse Rate 80 74 Respiratory Rate 16 18 Blood Pressure 112/66 99/56 L Pulse Oximetry 98 96 Oxygen Delivery Method Room Air Room Air BMI result Body Mass Index 36.0 Labs 12/03/23 22:25 12/03/23 22:25 Medications Medications Current Medications Acetaminophen (Acetaminophen 325 Mg Tablet) 650 mg PO Q6H PRN PRN Reason: Headache/Pain Mild Scale (1-3) Al Hydroxide/Mg Hydroxide (Magnesium Hydrox/Alum Hydrox 30 Ml Oral.Susp) 30 ml PO Q6H PRN PRN Reason: Heartburn/Nausea Last Admin: 12/10/23 09:39 Dose: 30 ml Aripiprazole (Aripiprazole 20 Mg Tablet) 20 mg PO DAILY [facility] Last Admin: 12/11/23 08:24 Dose: 20 mg Fluoxetine HCl (Fluoxetine Hcl 20 Mg Capsule) 20 mg PO DAILY [facility] Last Admin: 12/11/23 08:24 Dose: 20 mg Gabapentin (Gabapentin 300 Mg Capsule) 300 mg PO BID [facility] Last Admin: 12/11/23 08:23 Dose: 300 mg Hydroxyzine HCl (Hydroxyzine Hcl 25 Mg Tablet) 25 mg PO Q6H PRN PRN Reason: Anxiety Last Admin: 12/10/23 15:57 Dose: 25 mg Hydroxyzine HCl (Hydroxyzine Hcl 50 Mg Tablet) 100 mg PO BEDTIME PRN PRN Reason: insomnia Last Admin: 12/11/23 00:53 Dose: 100 mg Lorazepam (Lorazepam 0.5 Mg Tablet) 0.5 mg PO BID PRN PRN Reason: Anxiety Last Admin: 12/11/23 09:31 Dose: 0.5 mg Magnesium Hydroxide (Milk Of Magnesia 30 Ml Oral.Susp) 30 ml PO DAILY PRN PRN Reason: Constipation Methadone HCl (Methadone Hcl 20 Mg/2 Ml Oral.Conc) 75 mg PO DAILY@0800 [facility] Last Admin: 12/11/23 08:00 Dose: 75 mg Nicotine (Nicotine 21 Mg Patch.Td24) 21 mg TRANSDERMA DAILY [facility] Last Admin: 12/11/23 08:23 Dose: 21 mg Nicotine Polacrilex (Nicotine Polacrilex Lozenge 4 Mg Lozenge) 4 mg BUCCAL Q2H PRN PRN Reason: Nicotine Cravings Last Admin: 12/10/23 19:36 Dose: 4 mg Ondansetron HCl (Ondansetron Odt 8 Mg Tab.Rapdis) 8 mg TRANSLINGU Q8H PRN PRN Reason: Nausea and Vomiting Last Admin: 12/11/23 08:23 Dose: 8 mg Perphenazine (Perphenazine 8 Mg Tablet) 8 mg PO Q6H PRN PRN Reason: auditory hallucinations Quetiapine Fumarate (Quetiapine Fumarate 200 Mg Tablet) 200 mg PO BEDTIME [facility] Last Admin: 12/10/23 21:08 Dose: 200 mg Trazodone HCl (Trazodone Hcl 100 Mg Tablet) 100 mg PO BEDTIME [facility] Last Admin: 12/10/23 21:08 Dose: 100 mg Allergies Allergies Allergy/AdvReac Type Severity Reaction Status Date / Time Penicillins [PENICILLINS] Allergy Unknown Hives Verified 12/03/23 17:58 haloperidol AdvReac Severe Anaphylaxis Verified 12/03/23 17:58 Assessment & Plan Assessment & Plan (1) MDD (major depressive disorder), recurrent episode, moderate: Status: Acute Code(s): F33.1 - Major depressive disorder, recurrent, moderate (2) PTSD (post-traumatic stress disorder): Status: Acute Code(s): F43.10 - Post-traumatic stress disorder, unspecified (3) Cocaine use disorder: Status: Acute Code(s): F14.10 - Cocaine abuse, uncomplicated (4) Opioid use disorder: Status: Acute Code(s): F11.90 - Opioid use, unspecified, uncomplicated Plan Patient is a 27-year-old female with history of MDD, PTSD, opiate use disorder, who self presented to [facility] due to auditory hallucinations and suicidal ideation secondary to increased depression. Plan: CV 15 min checks Continue home medications encourage groups referral to outpatient prescriber and therapist referral to substance abuse program discharge planning 12/05: increase methadone from 70 mg daily to 75 mg daily. pt most recently prescribed ativan 0.5 BID PRN; do not increase. outpt regimen was abilify 20 daily, seroquel 50 TID PRN severe anxiety, seroquel 100/200, hydroxyzine 50-100 QHS PRN insomnia. will work back toward home medications regimen. 12/07/2023: Add back Seroquel 100 mg at bedtime, hydroxyzine 100 mg as needed at bedtime, Seroquel 50 mg as needed 3 times per day. 12/07: increase seroquel to 200 at bedtime. Clarified no dose adjustment in ativan with patient. 12/08: increase abilify to 20 mg, pt's prior outpt dose. continues depressed, +AH. 12/09: intrusive AH persist. DC seroquel PRNs as ineffective, trial higher potency medication, perphenazine 4 mg PRN. otherwise continue current mgmt. 12/10: intrusive AH continue. trial of 8 mg per dose perphenazine PRNs. Reason for continued inpatient stay Substantial Risk for: harm to self and inability to function Time Spent With Patient Time: Total time managing care of this patient today __25__ minutes.
[2023-12-11] MEDS: hydrOXYzine HCL 25 MG TABLET PO (14:11)
[2023-12-11] MEDS: Perphenazine 8 MG TABLET PO (14:11)
[2023-12-11 20:00] VITALS: BP 103/62; PULSE 76; RESP 16; TEMP 36.3; O2SAT 96
[2023-12-11] MEDS: QUEtiapine Fumarate 200 MG TABLET PO (20:13)
[2023-12-11] MEDS: traZODone HCL 100 MG TABLET PO (20:13)
[2023-12-12 07:00] VITALS: BMI 39.2
[2023-12-12 08:00] VITALS: BP 110/56; PULSE 69; RESP 16; TEMP 36.9; O2SAT 97
[2023-12-12] MEDS: methADONE HCl 20 MG/2 ML ORAL.CONC 75 MG PO (08:00)
[2023-12-12] MEDS: Ondansetron ODT 8 MG TAB.RAPDIS TRANSLINGU (08:14)
[2023-12-12] MEDS: Nicotine 21 MG PATCH.TD24 TRANSDERMA (08:14)
[2023-12-12] MEDS: LORazepam 0.5 MG TABLET PO ×2 (08:15→19:20)
[2023-12-12] MEDS: ARIPiprazole 20 MG TABLET PO (08:15)
[2023-12-12] MEDS: FLUoxetine HCl 20 MG CAPSULE PO ×2 (08:15→10:34)
[2023-12-12] MEDS: Gabapentin 300 MG CAPSULE PO ×2 (08:15→20:33)
[2023-12-12] MEDS: Nicotine Polacrilex Lozenge 4 MG LOZENGE BUCCAL ×3 (09:10→20:35)
[2023-12-12] MEDS: Perphenazine 8 MG TABLET PO ×2 (10:58→23:44)
[2023-12-12] MEDS: hydrOXYzine HCL 25 MG TABLET PO ×2 (12:33→23:44)
--- NOTE | 2023-12-12 16:00 | HO.PSYCHPN ---
Subjective Subjective Date of Service: 12/12/23 Reason For Visit: CRISIS Interim History: calm, cooperative. +AVH. no SI/SIBI. c/o depression, agrees to increase prozac to 40 mg daily. trying to get into [facility]. per staff, slept 8 hours. dep 8, anx 4. not attending groups. Mental Status Exam Mental Status Exam Narrative: Pt is alert and oriented; behavior is cooperative and calm; dressed in casual attire; mood is described as depressed ; eye contact appropriate; Speech is normal rate, volume and not pressured; thought process is organized and goal directed; Thought content is on tx. no SI. +AVH. no HI expressed Diagnostics Vital Signs (24Hr): Vital Signs - 24 hr 12/11/23 20:00 12/12/23 08:00 Temperature 97.4 F 98.4 F Pulse Rate 76 69 Respiratory Rate 16 16 Blood Pressure 103/62 110/56 L Pulse Oximetry 96 97 Oxygen Delivery Method Room Air Room Air BMI result Body Mass Index 39.2 Labs 12/03/23 22:25 12/03/23 22:25 Medications Medications Current Medications Acetaminophen (Acetaminophen 325 Mg Tablet) 650 mg PO Q6H PRN PRN Reason: Headache/Pain Mild Scale (1-3) Al Hydroxide/Mg Hydroxide (Magnesium Hydrox/Alum Hydrox 30 Ml Oral.Susp) 30 ml PO Q6H PRN PRN Reason: Heartburn/Nausea Last Admin: 12/10/23 09:39 Dose: 30 ml Aripiprazole (Aripiprazole 20 Mg Tablet) 20 mg PO DAILY [facility] Last Admin: 12/12/23 08:15 Dose: 20 mg Fluoxetine HCl (Fluoxetine Hcl 20 Mg Capsule) 40 mg PO DAILY [facility] Gabapentin (Gabapentin 300 Mg Capsule) 300 mg PO BID [facility] Last Admin: 12/12/23 08:15 Dose: 300 mg Hydroxyzine HCl (Hydroxyzine Hcl 25 Mg Tablet) 25 mg PO Q6H PRN PRN Reason: Anxiety Last Admin: 12/12/23 12:33 Dose: 25 mg Hydroxyzine HCl (Hydroxyzine Hcl 50 Mg Tablet) 100 mg PO BEDTIME PRN PRN Reason: insomnia Last Admin: 12/11/23 20:13 Dose: 100 mg Lorazepam (Lorazepam 0.5 Mg Tablet) 0.5 mg PO BID PRN PRN Reason: Anxiety Last Admin: 12/12/23 08:15 Dose: 0.5 mg Magnesium Hydroxide (Milk Of Magnesia 30 Ml Oral.Susp) 30 ml PO DAILY PRN PRN Reason: Constipation Methadone HCl (Methadone Hcl 20 Mg/2 Ml Oral.Conc) 75 mg PO DAILY@0800 [facility] Last Admin: 12/12/23 08:00 Dose: 75 mg Nicotine (Nicotine 21 Mg Patch.Td24) 21 mg TRANSDERMA DAILY [facility] Last Admin: 12/12/23 08:14 Dose: 21 mg Nicotine Polacrilex (Nicotine Polacrilex Lozenge 4 Mg Lozenge) 4 mg BUCCAL Q2H PRN PRN Reason: Nicotine Cravings Last Admin: 12/12/23 13:41 Dose: 4 mg Ondansetron HCl (Ondansetron Odt 8 Mg Tab.Rapdis) 8 mg TRANSLINGU Q8H PRN PRN Reason: Nausea and Vomiting Last Admin: 12/12/23 08:14 Dose: 8 mg Perphenazine (Perphenazine 8 Mg Tablet) 8 mg PO Q6H PRN PRN Reason: auditory hallucinations Last Admin: 12/12/23 10:58 Dose: 8 mg Quetiapine Fumarate (Quetiapine Fumarate 200 Mg Tablet) 200 mg PO BEDTIME [facility] Last Admin: 12/11/23 20:13 Dose: 200 mg Trazodone HCl (Trazodone Hcl 100 Mg Tablet) 100 mg PO BEDTIME [facility] Last Admin: 12/11/23 20:13 Dose: 100 mg Allergies Allergies Allergy/AdvReac Type Severity Reaction Status Date / Time Penicillins [PENICILLINS] Allergy Unknown Hives Verified 12/03/23 17:58 haloperidol AdvReac Severe Anaphylaxis Verified 12/03/23 17:58 Assessment & Plan Assessment & Plan (1) MDD (major depressive disorder), recurrent episode, moderate: Status: Acute Code(s): F33.1 - Major depressive disorder, recurrent, moderate (2) PTSD (post-traumatic stress disorder): Status: Acute Code(s): F43.10 - Post-traumatic stress disorder, unspecified (3) Cocaine use disorder: Status: Acute Code(s): F14.10 - Cocaine abuse, uncomplicated (4) Opioid use disorder: Status: Acute Code(s): F11.90 - Opioid use, unspecified, uncomplicated Plan Patient is a 27-year-old female with history of MDD, PTSD, opiate use disorder, who self [place] [facility] [place] due to auditory hallucinations and suicidal ideation secondary to increased depression. Plan: CV 15 min checks Continue home medications encourage groups referral to outpatient prescriber and therapist referral to substance abuse program discharge planning 12/05: increase methadone from 70 mg daily to 75 mg daily. pt most recently prescribed ativan 0.5 BID PRN; do not increase. outpt regimen was abilify 20 daily, seroquel 50 TID PRN severe anxiety, seroquel 100/200, hydroxyzine 50-100 QHS PRN insomnia. will work back toward home medications regimen. 12/07/2023: Add back Seroquel 100 mg at bedtime, hydroxyzine 100 mg as needed at bedtime, Seroquel 50 mg as needed 3 times per day. 12/07: increase seroquel to 200 at bedtime. Clarified no dose adjustment in ativan with patient. 12/08: increase abilify to 20 mg, pt's prior outpt dose. continues depressed, +AH. 12/09: intrusive AH persist. DC seroquel PRNs as ineffective, trial higher potency medication, perphenazine 4 mg PRN. otherwise continue current mgmt. 12/10: intrusive AH continue. trial of 8 mg per dose perphenazine PRNs. 12/11: feels perphenazine has been inadequate, seroquel may be better. will give it another day. no SI, AH continue. may be accepted to [facility] tomorrow. prozac increased to 40 mg daily for depression. Reason for continued inpatient stay Substantial Risk for: harm to self, inability to function and rapid decompensation Time Spent With Patient Time: Total time managing care of this patient today __35__ minutes.
[2023-12-12 19:31] VITALS: BP 114/68; PULSE 64; RESP 18; TEMP 36.9; O2SAT 99
[2023-12-12] MEDS: QUEtiapine Fumarate 200 MG TABLET PO (20:33)
[2023-12-12] MEDS: traZODone HCL 100 MG TABLET PO (20:34)
[2023-12-12] MEDS: hydrOXYzine HCL 50 MG TABLET 100 MG PO (20:34)
[2023-12-13 07:15] VITALS: BP 100/58; PULSE 83; RESP 14; TEMP 36.7; O2SAT 96
[2023-12-13] MEDS: methADONE HCl 20 MG/2 ML ORAL.CONC 75 MG PO (08:11)
[2023-12-13] MEDS: Nicotine 21 MG PATCH.TD24 TRANSDERMA (08:24)
[2023-12-13] MEDS: FLUoxetine HCl 20 MG CAPSULE 40 MG PO (08:25)
[2023-12-13] MEDS: Gabapentin 300 MG CAPSULE PO ×2 (08:25→20:54)
[2023-12-13] MEDS: LORazepam 0.5 MG TABLET PO ×2 (08:25→20:53)
[2023-12-13] MEDS: ARIPiprazole 20 MG TABLET PO (08:25)
[2023-12-13] MEDS: Nicotine Polacrilex Lozenge 4 MG LOZENGE BUCCAL ×3 (09:01→20:53)
[2023-12-13] MEDS: hydrOXYzine HCL 25 MG TABLET PO ×2 (09:48→17:36)
--- NOTE | 2023-12-13 11:34 | HO.PSYCHPN ---
Subjective Subjective Date of Service: 12/13/23 Reason For Visit: CRISIS Interim History: pt requesting thorazine for sleep. HS seroquel and trazodone DCed in favor of thorazine 200 at HS. also asking for more frequent hydroxyzine PRNs. glad to have been accepted to [facility] for saturday. per staff, attended 2 groups yesterday. DC saturday. Mental Status Exam Mental Status Exam Narrative: Pt is alert and oriented; behavior is cooperative and calm; dressed in casual attire; mood is described as nervous but i'll be OK ; eye contact appropriate; Speech is normal rate, volume and not pressured; thought process is organized and goal directed; Thought content is on tx. no SI/HI/AVH expressed. Diagnostics Vital Signs (24Hr): Vital Signs - 24 hr 12/12/23 19:31 12/13/23 07:15 Temperature 98.5 F 98.1 F Pulse Rate 64 83 Respiratory Rate 18 14 Blood Pressure 114/68 100/58 L Pulse Oximetry 99 96 Oxygen Delivery Method Room Air Room Air BMI result Body Mass Index 39.2 Labs 12/03/23 22:25 12/03/23 22:25 Medications Medications Current Medications Acetaminophen (Acetaminophen 325 Mg Tablet) 650 mg PO Q6H PRN PRN Reason: Headache/Pain Mild Scale (1-3) Al Hydroxide/Mg Hydroxide (Magnesium Hydrox/Alum Hydrox 30 Ml Oral.Susp) 30 ml PO Q6H PRN PRN Reason: Heartburn/Nausea Last Admin: 12/10/23 09:39 Dose: 30 ml Aripiprazole (Aripiprazole 20 Mg Tablet) 20 mg PO DAILY [facility] Last Admin: 12/13/23 08:25 Dose: 20 mg Chlorpromazine HCl (Chlorpromazine Hcl 100 Mg Tablet) 200 mg PO BEDTIME [facility] Chlorpromazine HCl (Chlorpromazine Hcl 100 Mg Tablet) 100 mg PO BEDTIME PRN PRN Reason: insomnia Fluoxetine HCl (Fluoxetine Hcl 20 Mg Capsule) 40 mg PO DAILY [facility] Last Admin: 12/13/23 08:25 Dose: 40 mg Gabapentin (Gabapentin 300 Mg Capsule) 300 mg PO BID [facility] Last Admin: 12/13/23 08:25 Dose: 300 mg Hydroxyzine HCl (Hydroxyzine Hcl 50 Mg Tablet) 100 mg PO BEDTIME PRN PRN Reason: insomnia Last Admin: 12/12/23 20:34 Dose: 100 mg Hydroxyzine HCl (Hydroxyzine Hcl 25 Mg Tablet) 25 mg PO Q4H PRN PRN Reason: Anxiety Lorazepam (Lorazepam 0.5 Mg Tablet) 0.5 mg PO BID PRN PRN Reason: Anxiety Last Admin: 12/13/23 08:25 Dose: 0.5 mg Magnesium Hydroxide (Milk Of Magnesia 30 Ml Oral.Susp) 30 ml PO DAILY PRN PRN Reason: Constipation Methadone HCl (Methadone Hcl 20 Mg/2 Ml Oral.Conc) 75 mg PO DAILY@0800 [facility] Last Admin: 12/13/23 08:11 Dose: 75 mg Nicotine (Nicotine 21 Mg Patch.Td24) 21 mg TRANSDERMA DAILY [facility] Last Admin: 12/13/23 08:24 Dose: 21 mg Nicotine Polacrilex (Nicotine Polacrilex Lozenge 4 Mg Lozenge) 4 mg BUCCAL Q2H PRN PRN Reason: Nicotine Cravings Last Admin: 12/13/23 09:01 Dose: 4 mg Ondansetron HCl (Ondansetron Odt 8 Mg Tab.Rapdis) 8 mg TRANSLINGU Q8H PRN PRN Reason: Nausea and Vomiting Last Admin: 12/12/23 08:14 Dose: 8 mg Perphenazine (Perphenazine 8 Mg Tablet) 8 mg PO Q6H PRN PRN Reason: auditory hallucinations Last Admin: 12/12/23 23:44 Dose: 8 mg Allergies Allergies Allergy/AdvReac Type Severity Reaction Status Date / Time Penicillins [PENICILLINS] Allergy Unknown Hives Verified 12/03/23 17:58 haloperidol AdvReac Severe Anaphylaxis Verified 12/03/23 17:58 Assessment & Plan Assessment & Plan (1) MDD (major depressive disorder), recurrent episode, moderate: Status: Acute Code(s): F33.1 - Major depressive disorder, recurrent, moderate (2) PTSD (post-traumatic stress disorder): Status: Acute Code(s): F43.10 - Post-traumatic stress disorder, unspecified (3) Cocaine use disorder: Status: Acute Code(s): F14.10 - Cocaine abuse, uncomplicated (4) Opioid use disorder: Status: Acute Code(s): F11.90 - Opioid use, unspecified, uncomplicated Plan Patient is a 27-year-old female with history of MDD, PTSD, opiate use disorder, who self presented to [facility] ER due to auditory hallucinations and suicidal ideation secondary to increased depression. Plan: CV 15 min checks Continue home medications encourage groups referral to outpatient prescriber and therapist referral to substance abuse program discharge planning 12/05: increase methadone from 70 mg daily to 75 mg daily. pt most recently prescribed ativan 0.5 BID PRN; do not increase. outpt regimen was abilify 20 daily, seroquel 50 TID PRN severe anxiety, seroquel 100/200, hydroxyzine 50-100 QHS PRN insomnia. will work back toward home medications regimen. 12/07/2023: Add back Seroquel 100 mg at bedtime, hydroxyzine 100 mg as needed at bedtime, Seroquel 50 mg as needed 3 times per day. 12/07: increase seroquel to 200 at bedtime. Clarified no dose adjustment in ativan with patient. 12/08: increase abilify to 20 mg, pt's prior outpt dose. continues depressed, +AH. 12/09: intrusive AH persist. DC seroquel PRNs as ineffective, trial higher potency medication, perphenazine 4 mg PRN. otherwise continue current mgmt. 12/10: intrusive AH continue. trial of 8 mg per dose perphenazine PRNs. 12/11: feels perphenazine has been inadequate, seroquel may be better. will give it another day. no SI, AH continue. may be accepted to [facility] tomorrow. prozac increased to 40 mg daily for depression. 12/12: accepted to [facility] for saturday. no depressions, SI/AVH expressed. DC seroquel at HS and trazodone and start thorazine for sleep. titrate as indicated over w/e. Reason for continued inpatient stay Substantial Risk for: harm to self, inability to function and rapid decompensation Time Spent With Patient Time: Total time managing care of this patient today __25__ minutes.
[2023-12-13] MEDS: hydrOXYzine HCL 50 MG TABLET 100 MG PO (20:53)
[2023-12-13] MEDS: chlorproMAZINE HCl 100 MG TABLET 200 MG PO (20:53)
[2023-12-13 21:10] VITALS: BP 107/60; PULSE 65; RESP 16; TEMP 36.8; O2SAT 97
[2023-12-14 08:00] VITALS: BP 125/72; PULSE 62; RESP 14; TEMP 36.8; O2SAT 99
[2023-12-14] MEDS: methADONE HCl 20 MG/2 ML ORAL.CONC 75 MG PO (08:02)
[2023-12-14] MEDS: Gabapentin 300 MG CAPSULE PO ×2 (08:05→22:09)
[2023-12-14] MEDS: FLUoxetine HCl 20 MG CAPSULE 40 MG PO (08:06)
[2023-12-14] MEDS: LORazepam 0.5 MG TABLET PO ×2 (08:06→18:07)
[2023-12-14] MEDS: Perphenazine 8 MG TABLET PO (08:06)
[2023-12-14] MEDS: ARIPiprazole 20 MG TABLET PO (08:06)
[2023-12-14] MEDS: Nicotine 21 MG PATCH.TD24 TRANSDERMA (08:07)
[2023-12-14] MEDS: Nicotine Polacrilex Lozenge 4 MG LOZENGE BUCCAL ×2 (09:31→13:34)
--- NOTE | 2023-12-14 10:22 | HO.PSYCHPN ---
Subjective Subjective Date of Service: 12/14/23 Reason For Visit: CRISIS Subjective Notes: Conditional Voluntary Interim History: Patient was seen and discussed in rounds today. Records and plans were reviewed. She has been doing better and slept 8 hours with Thorazine with no side effects. She is working towards discharge for next week. Periods of anxiety. No SI. No changes were made today Review of Systems Review of Systems Yes all other systems are reviewed and are negative Mental Status Exam Mental Status Exam Narrative: In today's visit she is alert, oriented and pleasant. Normal speech. Good eye contact. Affect is appropriate and varied. No signs of psychosis. No AVH. No SI/HI. Cognitively intact. Diagnostics Vital Signs (24Hr): Vital Signs - 24 hr 12/13/23 21:10 Temperature 98.2 F Pulse Rate 65 Respiratory Rate 16 Blood Pressure 107/60 Pulse Oximetry 97 Oxygen Delivery Method Room Air BMI result Body Mass Index 39.2 Labs 12/03/23 22:25 12/03/23 22:25 Medications Medications Current Medications Acetaminophen (Acetaminophen 325 Mg Tablet) 650 mg PO Q6H PRN PRN Reason: Headache/Pain Mild Scale (1-3) Al Hydroxide/Mg Hydroxide (Magnesium Hydrox/Alum Hydrox 30 Ml Oral.Susp) 30 ml PO Q6H PRN PRN Reason: Heartburn/Nausea Last Admin: 12/10/23 09:39 Dose: 30 ml Aripiprazole (Aripiprazole 20 Mg Tablet) 20 mg PO DAILY [facility] Last Admin: 12/14/23 08:06 Dose: 20 mg Chlorpromazine HCl (Chlorpromazine Hcl 100 Mg Tablet) 200 mg PO BEDTIME [facility] Last Admin: 12/13/23 20:53 Dose: 200 mg Chlorpromazine HCl (Chlorpromazine Hcl 100 Mg Tablet) 100 mg PO BEDTIME PRN PRN Reason: insomnia Fluoxetine HCl (Fluoxetine Hcl 20 Mg Capsule) 40 mg PO DAILY [facility] Last Admin: 12/14/23 08:06 Dose: 40 mg Gabapentin (Gabapentin 300 Mg Capsule) 300 mg PO BID [facility] Last Admin: 12/14/23 08:05 Dose: 300 mg Hydroxyzine HCl (Hydroxyzine Hcl 50 Mg Tablet) 100 mg PO BEDTIME PRN PRN Reason: insomnia Last Admin: 12/13/23 20:53 Dose: 100 mg Hydroxyzine HCl (Hydroxyzine Hcl 25 Mg Tablet) 25 mg PO Q4H PRN PRN Reason: Anxiety Last Admin: 12/13/23 17:36 Dose: 25 mg Lorazepam (Lorazepam 0.5 Mg Tablet) 0.5 mg PO BID PRN PRN Reason: Anxiety Last Admin: 12/14/23 08:06 Dose: 0.5 mg Magnesium Hydroxide (Milk Of Magnesia 30 Ml Oral.Susp) 30 ml PO DAILY PRN PRN Reason: Constipation Methadone HCl (Methadone Hcl 20 Mg/2 Ml Oral.Conc) 75 mg PO DAILY@0800 [facility] Last Admin: 12/14/23 08:02 Dose: 75 mg Nicotine (Nicotine 21 Mg Patch.Td24) 21 mg TRANSDERMA DAILY [facility] Last Admin: 12/14/23 08:07 Dose: 21 mg Nicotine Polacrilex (Nicotine Polacrilex Lozenge 4 Mg Lozenge) 4 mg BUCCAL Q2H PRN PRN Reason: Nicotine Cravings Last Admin: 12/14/23 09:31 Dose: 4 mg Ondansetron HCl (Ondansetron Odt 8 Mg Tab.Rapdis) 8 mg TRANSLINGU Q8H PRN PRN Reason: Nausea and Vomiting Last Admin: 12/12/23 08:14 Dose: 8 mg Perphenazine (Perphenazine 8 Mg Tablet) 8 mg PO Q6H PRN PRN Reason: auditory hallucinations Last Admin: 12/14/23 08:06 Dose: 8 mg Allergies Allergies Allergy/AdvReac Type Severity Reaction Status Date / Time Penicillins [PENICILLINS] Allergy Unknown Hives Verified 12/03/23 17:58 haloperidol AdvReac Severe Anaphylaxis Verified 12/03/23 17:58 Assessment & Plan Assessment & Plan (1) MDD (major depressive disorder), recurrent episode, moderate: Status: Acute Code(s): F33.1 - Major depressive disorder, recurrent, moderate (2) PTSD (post-traumatic stress disorder): Status: Acute Code(s): F43.10 - Post-traumatic stress disorder, unspecified (3) Cocaine use disorder: Status: Acute Code(s): F14.10 - Cocaine abuse, uncomplicated (4) Opioid use disorder: Status: Acute Code(s): F11.90 - Opioid use, unspecified, uncomplicated Plan Patient is a 27-year-old female with history of MDD, PTSD, opiate use disorder, who self presented to [facility] ER due to auditory hallucinations and suicidal ideation secondary to increased depression. Plan: CV 15 min checks Continue home medications encourage groups referral to outpatient prescriber and therapist referral to substance abuse program discharge planning 12/05: increase methadone from 70 mg daily to 75 mg daily. pt most recently prescribed ativan 0.5 BID PRN; do not increase. outpt regimen was abilify 20 daily, seroquel 50 TID PRN severe anxiety, seroquel 100/200, hydroxyzine 50-100 QHS PRN insomnia. will work back toward home medications regimen. 12/07/2023: Add back Seroquel 100 mg at bedtime, hydroxyzine 100 mg as needed at bedtime, Seroquel 50 mg as needed 3 times per day. 12/07: increase seroquel to 200 at bedtime. Clarified no dose adjustment in ativan with patient. 12/08: increase abilify to 20 mg, pt's prior outpt dose. continues depressed, +AH. 12/09: intrusive AH persist. DC seroquel PRNs as ineffective, trial higher potency medication, perphenazine 4 mg PRN. otherwise continue current mgmt. 12/10: intrusive AH continue. trial of 8 mg per dose perphenazine PRNs. 12/11: feels perphenazine has been inadequate, seroquel may be better. will give it another day. no SI, AH continue. may be accepted to [facility] tomorrow. prozac increased to 40 mg daily for depression. 12/12: accepted to [facility] for saturday. no depressions, SI/AVH expressed. DC seroquel at HS and trazodone and start thorazine for sleep. titrate as indicated over w/e. 12/13: Continue current regimen and plans Reason for continued inpatient stay Substantial Risk for: med/psych decompensation Time Spent With Patient Time: Total time managing care of this patient today ____ minutes.
[2023-12-14] MEDS: hydrOXYzine HCL 25 MG TABLET PO (13:34)
[2023-12-14 20:00] VITALS: BP 102/62; PULSE 74; RESP 16; TEMP 37.1; O2SAT 96
[2023-12-14] MEDS: chlorproMAZINE HCl 100 MG TABLET 200 MG PO (22:09)
[2023-12-15] MEDS: hydrOXYzine HCL 50 MG TABLET 100 MG PO (00:16)
[2023-12-15] MEDS: Perphenazine 8 MG TABLET PO ×2 (00:17→09:25)
[2023-12-15 08:00] VITALS: BP 101/64; PULSE 73; RESP 16; TEMP 36.3; O2SAT 99
[2023-12-15] MEDS: methADONE HCl 20 MG/2 ML ORAL.CONC 75 MG PO (08:07)
[2023-12-15] MEDS: ARIPiprazole 20 MG TABLET PO (08:10)
[2023-12-15] MEDS: Gabapentin 300 MG CAPSULE PO ×2 (08:10→20:19)
[2023-12-15] MEDS: LORazepam 0.5 MG TABLET PO ×2 (08:10→17:55)
[2023-12-15] MEDS: Nicotine 21 MG PATCH.TD24 TRANSDERMA (08:11)
[2023-12-15] MEDS: FLUoxetine HCl 20 MG CAPSULE 40 MG PO (08:11)
[2023-12-15] MEDS: hydrOXYzine HCL 25 MG TABLET PO ×2 (09:28→13:23)
[2023-12-15] MEDS: Nicotine Polacrilex Lozenge 4 MG LOZENGE BUCCAL ×3 (10:47→17:55)
--- NOTE | 2023-12-15 11:01 | P.PNPSI_ITS ---
Subjective Subjective Date of Service: 12/15/23 Reason For Visit: CRISIS Subjective Notes: Conditional Voluntary Interim History: Patient was seen and discussed in rounds today. Records and plans were reviewed. She has been stable and is doing better. Questions about her medications discussed. Her p.r.n. use discussed. Anxiety is better controlled. She had a bad nightmare last night. But was able to sleep afterwards. Still having some auditory hallucinations. No changes were made today Review of Systems Review of Systems Yes all other systems are reviewed and are negative Mental Status Exam Mental Status Exam Narrative: In today's visit she is alert, oriented and pleasant. Normal speech. Good eye contact. Affect is appropriate and varied. No signs of psychosis. No AVH. No SI/HI. Cognitively intact. Diagnostics Vital Signs (24Hr): Vital Signs - 24 hr 12/14/23 20:00 12/15/23 08:00 Temperature 98.7 F 97.3 F Pulse Rate 74 73 Respiratory Rate 16 16 Blood Pressure 102/62 101/64 Pulse Oximetry 96 99 Oxygen Delivery Method Room Air Room Air BMI result Body Mass Index 39.2 Labs 12/03/23 22:25 12/03/23 22:25 Medications Medications Current Medications Acetaminophen (Acetaminophen 325 Mg Tablet) 650 mg PO Q6H PRN PRN Reason: Headache/Pain Mild Scale (1-3) Al Hydroxide/Mg Hydroxide (Magnesium Hydrox/Alum Hydrox 30 Ml Oral.Susp) 30 ml PO Q6H PRN PRN Reason: Heartburn/Nausea Last Admin: 12/10/23 09:39 Dose: 30 ml Aripiprazole (Aripiprazole 20 Mg Tablet) 20 mg PO DAILY [facility] Last Admin: 12/15/23 08:10 Dose: 20 mg Chlorpromazine HCl (Chlorpromazine Hcl 100 Mg Tablet) 200 mg PO BEDTIME [facility] Last Admin: 12/14/23 22:09 Dose: 200 mg Chlorpromazine HCl (Chlorpromazine Hcl 100 Mg Tablet) 100 mg PO BEDTIME PRN PRN Reason: insomnia Fluoxetine HCl (Fluoxetine Hcl 20 Mg Capsule) 40 mg PO DAILY [facility] Last Admin: 12/15/23 08:11 Dose: 40 mg Gabapentin (Gabapentin 300 Mg Capsule) 300 mg PO BID [facility] Last Admin: 12/15/23 08:10 Dose: 300 mg Hydroxyzine HCl (Hydroxyzine Hcl 50 Mg Tablet) 100 mg PO BEDTIME PRN PRN Reason: insomnia Last Admin: 12/15/23 00:16 Dose: 100 mg Hydroxyzine HCl (Hydroxyzine Hcl 25 Mg Tablet) 25 mg PO Q4H PRN PRN Reason: Anxiety Last Admin: 12/15/23 09:28 Dose: 25 mg Lorazepam (Lorazepam 0.5 Mg Tablet) 0.5 mg PO BID PRN PRN Reason: Anxiety Last Admin: 12/15/23 08:10 Dose: 0.5 mg Magnesium Hydroxide (Milk Of Magnesia 30 Ml Oral.Susp) 30 ml PO DAILY PRN PRN Reason: Constipation Methadone HCl (Methadone Hcl 20 Mg/2 Ml Oral.Conc) 75 mg PO DAILY@0800 [facility] Last Admin: 12/15/23 08:07 Dose: 75 mg Nicotine (Nicotine 21 Mg Patch.Td24) 21 mg TRANSDERMA DAILY [facility] Last Admin: 12/15/23 08:11 Dose: 21 mg Nicotine Polacrilex (Nicotine Polacrilex Lozenge 4 Mg Lozenge) 4 mg BUCCAL Q2H PRN PRN Reason: Nicotine Cravings Last Admin: 12/15/23 10:47 Dose: 4 mg Ondansetron HCl (Ondansetron Odt 8 Mg Tab.Rapdis) 8 mg TRANSLINGU Q8H PRN PRN Reason: Nausea and Vomiting Last Admin: 12/12/23 08:14 Dose: 8 mg Perphenazine (Perphenazine 8 Mg Tablet) 8 mg PO Q6H PRN PRN Reason: auditory hallucinations Last Admin: 12/15/23 09:25 Dose: 8 mg Allergies Allergies Allergy/AdvReac Type Severity Reaction Status Date / Time Penicillins [PENICILLINS] Allergy Unknown Hives Verified 12/03/23 17:58 haloperidol AdvReac Severe Anaphylaxis Verified 12/03/23 17:58 Assessment & Plan Assessment & Plan (1) MDD (major depressive disorder), recurrent episode, moderate: Status: Acute Code(s): F33.1 - Major depressive disorder, recurrent, moderate (2) PTSD (post-traumatic stress disorder): Status: Acute Code(s): F43.10 - Post-traumatic stress disorder, unspecified (3) Cocaine use disorder: Status: Acute Code(s): F14.10 - Cocaine abuse, uncomplicated (4) Opioid use disorder: Status: Acute Code(s): F11.90 - Opioid use, unspecified, uncomplicated Plan Patient is a 27-year-old female with history of MDD, PTSD, opiate use disorder, who self presented to [facility] ER due to auditory hallucinations and suicidal ideation secondary to increased depression. Plan: CV 15 min checks Continue home medications encourage groups referral to outpatient prescriber and therapist referral to substance abuse program discharge planning 12/05: increase methadone from 70 mg daily to 75 mg daily. pt most recently prescribed ativan 0.5 BID PRN; do not increase. outpt regimen was abilify 20 daily, seroquel 50 TID PRN severe anxiety, seroquel 100/200, hydroxyzine 50-100 QHS PRN insomnia. will work back toward home medications regimen. 12/07/2023: Add back Seroquel 100 mg at bedtime, hydroxyzine 100 mg as needed at bedtime, Seroquel 50 mg as needed 3 times per day. 12/07: increase seroquel to 200 at bedtime. Clarified no dose adjustment in ativan with patient. 12/08: increase abilify to 20 mg, pt's prior outpt dose. continues depressed, +AH. 12/09: intrusive AH persist. DC seroquel PRNs as ineffective, trial higher potency medication, perphenazine 4 mg PRN. otherwise continue current mgmt. 12/10: intrusive AH continue. trial of 8 mg per dose perphenazine PRNs. 12/11: feels perphenazine has been inadequate, seroquel may be better. will give it another day. no SI, AH continue. may be accepted to [facility] tomorrow. prozac increased to 40 mg daily for depression. 12/12: accepted to [facility] for saturday. no depressions, SI/AVH expressed. DC seroquel at HS and trazodone and start thorazine for sleep. titrate as indicated over w/e. 12/13: Continue current regimen and plans 12/14: Continue current regimen and plans. Reason for continued inpatient stay Substantial Risk for: med/psych decompensation Time Spent With Patient Time: Total time managing care of this patient today ____ minutes.
[2023-12-15 20:15] VITALS: BP 108/62; PULSE 82; RESP 16; TEMP 36.8; O2SAT 96
[2023-12-15] MEDS: chlorproMAZINE HCl 100 MG TABLET 200 MG PO (20:20)
[2023-12-16 07:37] VITALS: BP 100/55; PULSE 85; RESP 14; TEMP 37.4; O2SAT 95
[2023-12-16] MEDS: methADONE HCl 20 MG/2 ML ORAL.CONC 75 MG PO (07:48)
[2023-12-16] MEDS: ARIPiprazole 20 MG TABLET PO (08:48)
[2023-12-16] MEDS: Gabapentin 300 MG CAPSULE PO ×2 (08:48→20:29)
[2023-12-16] MEDS: LORazepam 0.5 MG TABLET PO ×2 (08:48→13:33)
[2023-12-16] MEDS: FLUoxetine HCl 20 MG CAPSULE 40 MG PO (08:48)
--- NOTE | 2023-12-16 10:55 | PM.PSYDC ---
DS: Providers Provider Date of Service: 12/16/23 Date of admission: 12/04/23 12:12 Date of discharge: 12/16/23 Primary care physician: None Physician Consults: 12/04/23 16:48 Addiction Medicine Routine Consulting Provider: Addiction Covering Reason for consultation: recent relapse DS: Diagnosis Discharge Diagnosis (1) MDD (major depressive disorder), recurrent episode, moderate: Status: Acute (2) PTSD (post-traumatic stress disorder): Status: Acute (3) Cocaine use disorder: Status: Acute (4) Opioid use disorder: Status: Acute DS: Medications Discharge Medications Home Medications: Home Medications ?Medication ?Instructions ?Recorded ?Confirmed methadone 10 mg/mL oral 70 mg PO DAILY 10/30/23 12/04/23 concentrate (Methadone Intensol) Previous Rx's ?Medication ?Instructions ?Recorded aripiprazole 20 mg tablet (Abilify) 20 mg PO DAILY #30 tabs 12/16/23 chlorpromazine 100 mg tablet 200 mg (2 x 100 mg) PO BEDTIME #60 12/16/23 tabs fluoxetine 40 mg capsule 40 mg PO DAILY #30 caps 12/16/23 gabapentin 300 mg capsule 300 mg PO BID #60 caps 12/16/23 hydroxyzine HCl 50 mg tablet 100 mg (2 x 50 mg) PO BEDTIME PRN 12/16/23 insomnia #60 tabs lorazepam 0.5 mg tablet 0.5 mg PO BID PRN Anxiety #14 tabs 12/16/23 nicotine (polacrilex) 4 mg buccal 4 mg buccal Q2H PRN Nicotine 12/16/23 lozenge Cravings #60 ea nicotine 21 mg/24 hr daily 21 mg transdermal DAILY #30 ea 12/16/23 transdermal patch perphenazine 8 mg tablet 8 mg PO Q6H PRN auditory 12/16/23 hallucinations #60 tabs Mental Status Exam Mental Status Exam Narrative: In today's visit she is alert, oriented and pleasant. Normal speech. Good eye contact. Affect is appropriate and varied. No signs of psychosis. No AVH. No SI/HI. Cognitively intact. Data Data Completed and Pending Completed studies during hospitalization [Text1]: 12/03/23 22:22 Blood - Venous Blood Culture - Final No growth after 5 days. 12/03/23 22:13 Blood - Venous Blood Culture - Final No growth after 5 days. 12/03/23 18:57 Urine clean catch - Clean Catch Midstream Urine Culture - Final DS: Summary Hospital Course Hospital Course: Patient is a 27-year-old female with history of MDD, PTSD, opiate use disorder, who self presented to [facility] ER due to auditory hallucinations and suicidal ideation secondary to increased depression. Per crisis assessment, patient stated that she is having suicidal ideation without plan but feels that she wants to . Patient reports that she has been off of her medications for a few months and would like them restarted. Patient is homeless but has been staying with her cousin. Patient reports she has been using IV heroin and cocaine. UTOX positive for fentanyl, methadone, cocaine and opiates. During admission assessment, patient presents alert, oriented, calm and cooperative. Patient stated, I came to the hospital because I am hearing voices constantly. I'm seeing stuff. I'm thinking about hurting myself. I can not take it anymore. I want to get back on my meds . Patient reports the stress from the auditory hallucinations and visual hallucinations have made her suicidal. Patient stated, I feel like when I sleep is the only time that I get relief. I was thinking of driving my car into a tree or cutting my wrists . Patient reports she would like to go to a program and not return to her cousin's home due to it not being a good environment . Patient reports she has not taken her psychiatric medications since August. Patient reports relapsing on substances in August 2023. She reports previously having a outpatient psychiatrist and therapist through [facility]. Pt is requesting labs for Hep C and HIV. Past Psychiatric History: hx of multiple inpatient psychiatric admissions hx of multiple detox admissions Pt reports having providers through [facility]. Medical Evaluation Reviewed: Yes HOSPITAL COURSE Ms. Pires was admitted on a CV and placed on 15 minutes checks for safety. Note that pt was admitted under the care of Dr. Obi Ordonez, please refer to his notes for more information. In brief, pt presented as anxious requiring PRNs during the day. She was continued on prozac for depression. She also has abilify. There are multiple antipsychotics in addition to abilify including perphenazine and horazine but these have been used mainly to treat anxious mood and in an attempt to reduce use of benzodiazepines. She did not present as psychotic nor delusional. She agreed to be referred to [facility] program. No aggression towards self or others. Narcan given on discharged. Status at Discharge Cognitive/behavioral status at discharge: Pt with brighter, non labile affect. No SI/HI. No VH/AH. No delusional content. Time Spent with Patient Time attestation: Total time managing care of this patient today __35__ minutes. Time spent: Greater than 30 minutes Discharge Plan Discharge Anticipated Discharge Date/Time: 12/16/23 10:35 Patient Disposition: Home, Self-Care Discharge Diagnosis: MDD, recurrent, moderate Referrals: [facility] [Other] - 1 Week ([facility] has been added to patient's chart. Please call [phone] for a follow up appt.) Discharge Medications: New nicotine 21 mg/24 hr Patch 24 Hour 21 mg transdermal DAILY Qty: 30 0RF perphenazine 8 mg Tablet 8 mg PO Q6H PRN (Reason: auditory hallucinations) Qty: 60 0RF chlorpromazine 100 mg Tablet 200 mg PO BEDTIME Qty: 60 0RF aripiprazole [Abilify] 20 mg Tablet 20 mg PO DAILY Qty: 30 0RF nicotine (polacrilex) 4 mg Lozenge 4 mg buccal Q2H PRN (Reason: Nicotine Cravings) Qty: 60 0RF fluoxetine 40 mg capsule 40 mg PO DAILY Qty: 30 0RF hydroxyzine HCl 50 mg Tablet 100 mg PO BEDTIME PRN (Reason: insomnia) Qty: 60 0RF lorazepam 0.5 mg Tablet 0.5 mg PO BID PRN (Reason: Anxiety) Qty: 14 0RF gabapentin 300 mg Capsule 300 mg PO BID Qty: 60 0RF Continued methadone [Methadone Intensol] 10 mg/mL Concentrate 70 mg PO DAILY Discharge Orders: Discharge Order (Routine); Ordered 12/16/23 Ordered By: Nida Sanches Diet: Regular diet Activity on Discharge: As tolerated Stand Alone Forms: Patient Portal Discharge page, Community Support Print Language: Indonesian Care Plan Goals: maintain mood harm reduction- narcan given prior to dc Health Concerns: Follow up with PCP Plan of Treatment: Take medications as prescribed. Assessment: Pt with brighter, non labile. No SI/HI. Sleeping through the night. no VH/AH. no aggression towards self or others.
[2023-12-16] MEDS: Nicotine Polacrilex Lozenge 4 MG LOZENGE BUCCAL ×3 (11:02→18:21)
[2023-12-16] MEDS: Naloxone HCl Nasal TAKE HOME 4 MG SPRAY 8 MG NOSTRILALT (11:03)
[2023-12-16] MEDS: Perphenazine 8 MG TABLET PO ×2 (11:30→20:29)
[2023-12-16] MEDS: hydrOXYzine HCL 25 MG TABLET PO ×2 (11:30→18:56)
[2023-12-16 20:00] VITALS: BP 125/73; PULSE 96; RESP 18; TEMP 36.8; O2SAT 97
[2023-12-16] MEDS: hydrOXYzine HCL 50 MG TABLET 100 MG PO (20:29)
[2023-12-16] MEDS: chlorproMAZINE HCl 100 MG TABLET 200 MG PO (20:29)
[2023-12-17 07:15] VITALS: BP 97/54; PULSE 89; RESP 14; TEMP 36.4; O2SAT 95
[2023-12-17] MEDS: methADONE HCl 20 MG/2 ML ORAL.CONC 75 MG PO (07:50)
[2023-12-17] MEDS: ARIPiprazole 20 MG TABLET PO (08:38)
[2023-12-17] MEDS: Gabapentin 300 MG CAPSULE PO ×2 (08:38→20:19)
[2023-12-17] MEDS: FLUoxetine HCl 20 MG CAPSULE 40 MG PO (08:38)
--- NOTE | 2023-12-17 08:38 | HO.PSYCHPN ---
Subjective Subjective Date of Service: 12/16/23 Reason For Visit: CRISIS Subjective Notes: Conditional Voluntary Interim History: Pt slept through the night. Pt was scheduled to go to [facility] but medications not received on time for delivery. discharged cancelled. No SI/HI. No VH/AH. No delusions. Review of Systems Review of Systems nausea Yes all other systems are reviewed and are negative Constitutional: Reports as per HPI, Denies body ache(s), Denies chills, Denies fever(s) and Denies headache(s) Eyes: Reports as per HPI and Denies blurry vision Reports as per HPI, Denies headache(s) and Denies sore throat Cardiovascular: Reports as per HPI, Denies chest pain and Denies dyspnea Respiratory: Reports as per HPI, Denies cough and Denies dyspnea Gastrointestinal: Reports as per HPI, Denies abdominal pain, Denies nausea and Denies vomiting Musculoskeletal: Reports as per HPI and Denies back pain Skin/Breast: Reports as per HPI, Reports erythema and Reports sores Reports as per HPI and Denies headache(s) Psychiatric: Reports as per HPI Endocrine: Reports as per HPI Hematologic/Lymphatic: Reports as per HPI Allergic/Immunologic: Reports as per HPI Mental Status Exam Mental Status Exam Narrative: In today's visit she is alert, oriented and pleasant. Normal speech. Good eye contact. Affect is appropriate and varied. No signs of psychosis. No AVH. No SI/HI. Cognitively intact. Diagnostics Vital Signs (24Hr): Vital Signs - 24 hr 12/16/23 20:00 12/17/23 07:15 Temperature 98.2 F 97.6 F Pulse Rate 96 89 Respiratory Rate 18 14 Blood Pressure 125/73 97/54 L Pulse Oximetry 97 95 Oxygen Delivery Method Room Air Room Air BMI result Body Mass Index 39.2 Labs 12/03/23 22:25 12/03/23 22:25 Medications Medications Current Medications Acetaminophen (Acetaminophen 325 Mg Tablet) 650 mg PO Q6H PRN PRN Reason: Headache/Pain Mild Scale (1-3) Al Hydroxide/Mg Hydroxide (Magnesium Hydrox/Alum Hydrox 30 Ml Oral.Susp) 30 ml PO Q6H PRN PRN Reason: Heartburn/Nausea Last Admin: 12/10/23 09:39 Dose: 30 ml Aripiprazole (Aripiprazole 20 Mg Tablet) 20 mg PO DAILY [facility] Last Admin: 12/16/23 08:48 Dose: 20 mg Chlorpromazine HCl (Chlorpromazine Hcl 100 Mg Tablet) 200 mg PO BEDTIME [facility] Last Admin: 12/16/23 20:29 Dose: 200 mg Chlorpromazine HCl (Chlorpromazine Hcl 100 Mg Tablet) 100 mg PO BEDTIME PRN PRN Reason: insomnia Fluoxetine HCl (Fluoxetine Hcl 20 Mg Capsule) 40 mg PO DAILY [facility] Last Admin: 12/16/23 08:48 Dose: 40 mg Gabapentin (Gabapentin 300 Mg Capsule) 300 mg PO BID [facility] Last Admin: 12/16/23 20:29 Dose: 300 mg Hydroxyzine HCl (Hydroxyzine Hcl 50 Mg Tablet) 100 mg PO BEDTIME PRN PRN Reason: insomnia Last Admin: 12/16/23 20:29 Dose: 100 mg Hydroxyzine HCl (Hydroxyzine Hcl 25 Mg Tablet) 25 mg PO Q4H PRN PRN Reason: Anxiety Last Admin: 12/16/23 18:56 Dose: 25 mg Lorazepam (Lorazepam 0.5 Mg Tablet) 0.5 mg PO BID PRN PRN Reason: Anxiety Last Admin: 12/16/23 13:33 Dose: 0.5 mg Magnesium Hydroxide (Milk Of Magnesia 30 Ml Oral.Susp) 30 ml PO DAILY PRN PRN Reason: Constipation Methadone HCl (Methadone Hcl 20 Mg/2 Ml Oral.Conc) 75 mg PO DAILY@0800 [facility] Last Admin: 12/17/23 07:50 Dose: 75 mg Nicotine (Nicotine 21 Mg Patch.Td24) 21 mg TRANSDERMA DAILY [facility] Last Admin: 12/16/23 09:38 Dose: Not Given Nicotine Polacrilex (Nicotine Polacrilex Lozenge 4 Mg Lozenge) 4 mg BUCCAL Q2H PRN PRN Reason: Nicotine Cravings Last Admin: 12/16/23 18:21 Dose: 4 mg Ondansetron HCl (Ondansetron Odt 8 Mg Tab.Rapdis) 8 mg TRANSLINGU Q8H PRN PRN Reason: Nausea and Vomiting Last Admin: 12/12/23 08:14 Dose: 8 mg Perphenazine (Perphenazine 8 Mg Tablet) 8 mg PO Q6H PRN PRN Reason: auditory hallucinations Last Admin: 12/16/23 20:29 Dose: 8 mg Allergies Allergies Allergy/AdvReac Type Severity Reaction Status Date / Time Penicillins [PENICILLINS] Allergy Unknown Hives Verified 12/03/23 17:58 haloperidol AdvReac Severe Anaphylaxis Verified 12/03/23 17:58 Assessment & Plan Assessment & Plan (1) MDD (major depressive disorder), recurrent episode, moderate: Status: Acute Code(s): F33.1 - Major depressive disorder, recurrent, moderate (2) PTSD (post-traumatic stress disorder): Status: Acute Code(s): F43.10 - Post-traumatic stress disorder, unspecified (3) Cocaine use disorder: Status: Acute Code(s): F14.10 - Cocaine abuse, uncomplicated (4) Opioid use disorder: Status: Acute Code(s): F11.90 - Opioid use, unspecified, uncomplicated Plan Patient is a 27-year-old female with history of MDD, PTSD, opiate use disorder, who self presented [place] [facility] due to auditory hallucinations and suicidal ideation secondary to increased depression. Plan: CV 15 min checks Continue home medications encourage groups referral to outpatient prescriber and therapist referral to substance abuse program discharge planning 12/05: increase methadone from 70 mg daily to 75 mg daily. pt most recently prescribed ativan 0.5 BID PRN; do not increase. outpt regimen was abilify 20 daily, seroquel 50 TID PRN severe anxiety, seroquel 100/200, hydroxyzine 50-100 QHS PRN insomnia. will work back toward home medications regimen. 12/07/2023: Add back Seroquel 100 mg at bedtime, hydroxyzine 100 mg as needed at bedtime, Seroquel 50 mg as needed 3 times per day. 12/07: increase seroquel to 200 at bedtime. Clarified no dose adjustment in ativan with patient. 12/08: increase abilify to 20 mg, pt's prior outpt dose. continues depressed, +AH. 12/09: intrusive AH persist. DC seroquel PRNs as ineffective, trial higher potency medication, perphenazine 4 mg PRN. otherwise continue current mgmt. 12/10: intrusive AH continue. trial of 8 mg per dose perphenazine PRNs. 12/11: feels perphenazine has been inadequate, seroquel may be better. will give it another day. no SI, AH continue. may be accepted to [facility] tomorrow. prozac increased to 40 mg daily for depression. 12/12: accepted to [facility] for saturday. no depressions, SI/AVH expressed. DC seroquel at HS and trazodone and start thorazine for sleep. titrate as indicated over w/e. 12/13: Continue current regimen and plans 12/14: Continue current regimen and plans. 12/15 continue tx. Reason for continued inpatient stay Substantial Risk for: inability to function Time Spent With Patient Time: Total time managing care of this patient today ____ minutes.
[2023-12-17] MEDS: LORazepam 0.5 MG TABLET PO ×2 (08:39→20:19)
[2023-12-17] MEDS: Ondansetron ODT 8 MG TAB.RAPDIS TRANSLINGU (09:08)
[2023-12-17] MEDS: Magnesium Hydrox/Alum Hydrox 30 ML ORAL.SUSP PO (09:32)
[2023-12-17] MEDS: Nicotine Polacrilex Lozenge 4 MG LOZENGE BUCCAL ×2 (09:56→18:00)
[2023-12-17] MEDS: hydrOXYzine HCL 25 MG TABLET PO (12:00)
--- NOTE | 2023-12-17 13:44 | P.PNPSI_ITS ---
Subjective Subjective Date of Service: 12/17/23 Reason For Visit: CRISIS Subjective Notes: Conditional Voluntary Interim History: Pt slept through the night. Pt was scheduled to go to [facility] but medications not received on time for delivery. discharged cancelled. No SI/HI. No VH/AH. No delusions. Review of Systems Review of Systems nausea Yes all other systems are reviewed and are negative Constitutional: Reports as per HPI, Denies body ache(s), Denies chills, Denies fever(s) and Denies headache(s) Eyes: Reports as per HPI and Denies blurry vision Reports as per HPI, Denies headache(s) and Denies sore throat Cardiovascular: Reports as per HPI, Denies chest pain and Denies dyspnea Respiratory: Reports as per HPI, Denies cough and Denies dyspnea Gastrointestinal: Reports as per HPI, Denies abdominal pain, Denies nausea and Denies vomiting Musculoskeletal: Reports as per HPI and Denies back pain Skin/Breast: Reports as per HPI, Reports erythema and Reports sores Reports as per HPI and Denies headache(s) Psychiatric: Reports as per HPI Endocrine: Reports as per HPI Hematologic/Lymphatic: Reports as per HPI Allergic/Immunologic: Reports as per HPI Mental Status Exam Mental Status Exam Narrative: In today's visit she is alert, oriented and pleasant. Normal speech. Good eye contact. Affect is appropriate and varied. No signs of psychosis. No AVH. No SI/HI. Cognitively intact. Diagnostics Vital Signs (24Hr): Vital Signs - 24 hr 12/16/23 20:00 12/17/23 07:15 Temperature 98.2 F 97.6 F Pulse Rate 96 89 Respiratory Rate 18 14 Blood Pressure 125/73 97/54 L Pulse Oximetry 97 95 Oxygen Delivery Method Room Air Room Air BMI result Body Mass Index 39.2 Labs 12/03/23 22:25 12/03/23 22:25 Medications Medications Current Medications Acetaminophen (Acetaminophen 325 Mg Tablet) 650 mg PO Q6H PRN PRN Reason: Headache/Pain Mild Scale (1-3) Al Hydroxide/Mg Hydroxide (Magnesium Hydrox/Alum Hydrox 30 Ml Oral.Susp) 30 ml PO Q6H PRN PRN Reason: Heartburn/Nausea Last Admin: 12/17/23 09:32 Dose: 30 ml Aripiprazole (Aripiprazole 20 Mg Tablet) 20 mg PO DAILY [facility] Last Admin: 12/17/23 08:38 Dose: 20 mg Chlorpromazine HCl (Chlorpromazine Hcl 100 Mg Tablet) 200 mg PO BEDTIME [facility] Last Admin: 12/16/23 20:29 Dose: 200 mg Chlorpromazine HCl (Chlorpromazine Hcl 100 Mg Tablet) 100 mg PO BEDTIME PRN PRN Reason: insomnia Fluoxetine HCl (Fluoxetine Hcl 20 Mg Capsule) 40 mg PO DAILY [facility] Last Admin: 12/17/23 08:38 Dose: 40 mg Gabapentin (Gabapentin 300 Mg Capsule) 300 mg PO BID [facility] Last Admin: 12/17/23 08:38 Dose: 300 mg Hydroxyzine HCl (Hydroxyzine Hcl 50 Mg Tablet) 100 mg PO BEDTIME PRN PRN Reason: insomnia Last Admin: 12/16/23 20:29 Dose: 100 mg Hydroxyzine HCl (Hydroxyzine Hcl 25 Mg Tablet) 25 mg PO Q4H PRN PRN Reason: Anxiety Last Admin: 12/17/23 12:00 Dose: 25 mg Magnesium Hydroxide (Milk Of Magnesia 30 Ml Oral.Susp) 30 ml PO DAILY PRN PRN Reason: Constipation Methadone HCl (Methadone Hcl 20 Mg/2 Ml Oral.Conc) 75 mg PO DAILY@0800 [facility] Last Admin: 12/17/23 07:50 Dose: 75 mg Nicotine (Nicotine 21 Mg Patch.Td24) 21 mg TRANSDERMA DAILY [facility] Last Admin: 12/17/23 09:06 Dose: Not Given Nicotine Polacrilex (Nicotine Polacrilex Lozenge 4 Mg Lozenge) 4 mg BUCCAL Q2H PRN PRN Reason: Nicotine Cravings Last Admin: 12/17/23 09:56 Dose: 4 mg Ondansetron HCl (Ondansetron Odt 8 Mg Tab.Rapdis) 8 mg TRANSLINGU Q8H PRN PRN Reason: Nausea and Vomiting Last Admin: 12/17/23 09:08 Dose: 8 mg Perphenazine (Perphenazine 8 Mg Tablet) 8 mg PO Q6H PRN PRN Reason: auditory hallucinations Last Admin: 12/16/23 20:29 Dose: 8 mg Allergies Allergies Allergy/AdvReac Type Severity Reaction Status Date / Time Penicillins [PENICILLINS] Allergy Unknown Hives Verified 12/03/23 17:58 haloperidol AdvReac Severe Anaphylaxis Verified 12/03/23 17:58 Assessment & Plan Assessment & Plan (1) MDD (major depressive disorder), recurrent episode, moderate: Status: Acute Code(s): F33.1 - Major depressive disorder, recurrent, moderate (2) PTSD (post-traumatic stress disorder): Status: Acute Code(s): F43.10 - Post-traumatic stress disorder, unspecified (3) Cocaine use disorder: Status: Acute Code(s): F14.10 - Cocaine abuse, uncomplicated (4) Opioid use disorder: Status: Acute Code(s): F11.90 - Opioid use, unspecified, uncomplicated Plan Patient is a 27-year-old female with history of MDD, PTSD, opiate use disorder, who self [place] [facility] due to auditory hallucinations and suicidal ideation secondary to increased depression. Plan: CV 15 min checks Continue home medications encourage groups referral to outpatient prescriber and therapist referral to substance abuse program discharge planning 12/05: increase methadone from 70 mg daily to 75 mg daily. pt most recently prescribed ativan 0.5 BID PRN; do not increase. outpt regimen was abilify 20 daily, seroquel 50 TID PRN severe anxiety, seroquel 100/200, hydroxyzine 50-100 QHS PRN insomnia. will work back toward home medications regimen. 12/07/2023: Add back Seroquel 100 mg at bedtime, hydroxyzine 100 mg as needed at bedtime, Seroquel 50 mg as needed 3 times per day. 12/07: increase seroquel to 200 at bedtime. Clarified no dose adjustment in ativan with patient. 12/08: increase abilify to 20 mg, pt's prior outpt dose. continues depressed, +AH. 12/09: intrusive AH persist. DC seroquel PRNs as ineffective, trial higher potency medication, perphenazine 4 mg PRN. otherwise continue current mgmt. 12/10: intrusive AH continue. trial of 8 mg per dose perphenazine PRNs. 12/11: feels perphenazine has been inadequate, seroquel may be better. will give it another day. no SI, AH continue. may be accepted to [facility] tomorrow. prozac increased to 40 mg daily for depression. 12/12: accepted to [facility] for saturday. no depressions, SI/AVH expressed. DC seroquel at HS and trazodone and start thorazine for sleep. titrate as indicated over w/e. 12/13: Continue current regimen and plans 12/14: Continue current regimen and plans. 12/15 continue tx. 12/16 continue tx. Reason for continued inpatient stay Substantial Risk for: inability to function Time Spent With Patient Time: Total time managing care of this patient today ____ minutes.
[2023-12-17 20:00] VITALS: BP 120/61; PULSE 91; RESP 18; TEMP 36.4; O2SAT 98
[2023-12-17] MEDS: chlorproMAZINE HCl 100 MG TABLET 200 MG PO (20:19)
[2023-12-17] MEDS: hydrOXYzine HCL 50 MG TABLET 100 MG PO (20:19)
[2023-12-18] MEDS: hydrOXYzine HCL 25 MG TABLET PO ×3 (01:32→23:31)
[2023-12-18] MEDS: Perphenazine 8 MG TABLET PO (01:32)
[2023-12-18 07:25] VITALS: BP 107/54; PULSE 85; RESP 18; TEMP 36.9; O2SAT 97
[2023-12-18 08:00] VITALS: BP 107/54; PULSE 85; RESP 18; TEMP 36.9; O2SAT 97
[2023-12-18] MEDS: methADONE HCl 20 MG/2 ML ORAL.CONC 75 MG PO (08:01)
[2023-12-18] MEDS: FLUoxetine HCl 20 MG CAPSULE 40 MG PO (08:21)
[2023-12-18] MEDS: LORazepam 0.5 MG TABLET PO ×2 (08:22→17:50)
[2023-12-18] MEDS: ARIPiprazole 20 MG TABLET PO (08:22)
[2023-12-18] MEDS: Gabapentin 300 MG CAPSULE PO ×2 (08:22→20:24)
[2023-12-18] MEDS: Nicotine 21 MG PATCH.TD24 TRANSDERMA (08:22)
[2023-12-18] MEDS: hydrOXYzine HCL 50 MG TABLET 100 MG PO (09:52)
--- NOTE | 2023-12-18 16:41 | P.PNPSI_ITS ---
Subjective Subjective Date of Service: 12/18/23 Reason For Visit: CRISIS Subjective Notes: Conditional Voluntary Interim History: Pt slept through the night. Pt was scheduled to go to [facility] but medications not received on time for delivery. discharged cancelled. No SI/HI. No VH/AH. No delusions. Review of Systems Review of Systems nausea Yes all other systems are reviewed and are negative Constitutional: Reports as per HPI, Denies body ache(s), Denies chills, Denies fever(s) and Denies headache(s) Eyes: Reports as per HPI and Denies blurry vision Reports as per HPI, Denies headache(s) and Denies sore throat Cardiovascular: Reports as per HPI, Denies chest pain and Denies dyspnea Respiratory: Reports as per HPI, Denies cough and Denies dyspnea Gastrointestinal: Reports as per HPI, Denies abdominal pain, Denies nausea and Denies vomiting Musculoskeletal: Reports as per HPI and Denies back pain Skin/Breast: Reports as per HPI, Reports erythema and Reports sores Reports as per HPI and Denies headache(s) Psychiatric: Reports as per HPI Endocrine: Reports as per HPI Hematologic/Lymphatic: Reports as per HPI Allergic/Immunologic: Reports as per HPI Mental Status Exam Mental Status Exam Narrative: In today's visit she is alert, oriented and pleasant. Normal speech. Good eye contact. Affect is appropriate and varied. No signs of psychosis. No AVH. No SI/HI. Cognitively intact. Diagnostics Vital Signs (24Hr): Vital Signs - 24 hr 12/17/23 20:00 12/18/23 07:25 12/18/23 08:00 Temperature 97.6 F 98.4 F 98.4 F Pulse Rate 91 85 85 Respiratory Rate 18 18 18 Blood Pressure 120/61 107/54 L 107/54 L Pulse Oximetry 98 97 97 Oxygen Delivery Method Room Air Room Air Room Air BMI result Body Mass Index 39.2 Labs 12/03/23 22:25 12/03/23 22:25 Medications Medications Current Medications Acetaminophen (Acetaminophen 325 Mg Tablet) 650 mg PO Q6H PRN PRN Reason: Headache/Pain Mild Scale (1-3) Al Hydroxide/Mg Hydroxide (Magnesium Hydrox/Alum Hydrox 30 Ml Oral.Susp) 30 ml PO Q6H PRN PRN Reason: Heartburn/Nausea Last Admin: 12/17/23 09:32 Dose: 30 ml Aripiprazole (Aripiprazole 20 Mg Tablet) 20 mg PO DAILY [facility] Last Admin: 12/18/23 08:22 Dose: 20 mg Chlorpromazine HCl (Chlorpromazine Hcl 100 Mg Tablet) 200 mg PO BEDTIME [facility] Last Admin: 12/17/23 20:19 Dose: 200 mg Chlorpromazine HCl (Chlorpromazine Hcl 100 Mg Tablet) 100 mg PO BEDTIME PRN PRN Reason: insomnia Fluoxetine HCl (Fluoxetine Hcl 20 Mg Capsule) 40 mg PO DAILY [facility] Last Admin: 12/18/23 08:21 Dose: 40 mg Gabapentin (Gabapentin 300 Mg Capsule) 300 mg PO BID [facility] Last Admin: 12/18/23 08:22 Dose: 300 mg Hydroxyzine HCl (Hydroxyzine Hcl 50 Mg Tablet) 100 mg PO BEDTIME PRN PRN Reason: insomnia Last Admin: 12/18/23 09:52 Dose: 100 mg Hydroxyzine HCl (Hydroxyzine Hcl 25 Mg Tablet) 25 mg PO Q4H PRN PRN Reason: Anxiety Last Admin: 12/18/23 13:06 Dose: 25 mg Lorazepam (Lorazepam 0.5 Mg Tablet) 0.5 mg PO BID PRN PRN Reason: Anxiety Last Admin: 12/18/23 08:22 Dose: 0.5 mg Magnesium Hydroxide (Milk Of Magnesia 30 Ml Oral.Susp) 30 ml PO DAILY PRN PRN Reason: Constipation Methadone HCl (Methadone Hcl 20 Mg/2 Ml Oral.Conc) 75 mg PO DAILY@0800 [facility] Last Admin: 12/18/23 08:01 Dose: 75 mg Nicotine (Nicotine 21 Mg Patch.Td24) 21 mg TRANSDERMA DAILY [facility] Last Admin: 12/18/23 08:22 Dose: 21 mg Nicotine Polacrilex (Nicotine Polacrilex Lozenge 4 Mg Lozenge) 4 mg BUCCAL Q2H PRN PRN Reason: Nicotine Cravings Last Admin: 12/17/23 18:00 Dose: 4 mg Ondansetron HCl (Ondansetron Odt 8 Mg Tab.Rapdis) 8 mg TRANSLINGU Q8H PRN PRN Reason: Nausea and Vomiting Last Admin: 12/17/23 09:08 Dose: 8 mg Perphenazine (Perphenazine 8 Mg Tablet) 8 mg PO Q6H PRN PRN Reason: auditory hallucinations Last Admin: 12/18/23 01:32 Dose: 8 mg Allergies Allergies Allergy/AdvReac Type Severity Reaction Status Date / Time Penicillins [PENICILLINS] Allergy Unknown Hives Verified 12/03/23 17:58 haloperidol AdvReac Severe Anaphylaxis Verified 12/03/23 17:58 Assessment & Plan Assessment & Plan (1) MDD (major depressive disorder), recurrent episode, moderate: Status: Acute Code(s): F33.1 - Major depressive disorder, recurrent, moderate (2) PTSD (post-traumatic stress disorder): Status: Acute Code(s): F43.10 - Post-traumatic stress disorder, unspecified (3) Cocaine use disorder: Status: Acute Code(s): F14.10 - Cocaine abuse, uncomplicated (4) Opioid use disorder: Status: Acute Code(s): F11.90 - Opioid use, unspecified, uncomplicated Plan Patient is a 27-year-old female with history of MDD, PTSD, opiate use disorder, who self [place] [facility] due to auditory hallucinations and suicidal ideation secondary to increased depression. Plan: CV 15 min checks Continue home medications encourage groups referral to outpatient prescriber and therapist referral to substance abuse program discharge planning 12/05: increase methadone from 70 mg daily to 75 mg daily. pt most recently prescribed ativan 0.5 BID PRN; do not increase. outpt regimen was abilify 20 daily, seroquel 50 TID PRN severe anxiety, seroquel 100/200, hydroxyzine 50-100 QHS PRN insomnia. will work back toward home medications regimen. 12/07/2023: Add back Seroquel 100 mg at bedtime, hydroxyzine 100 mg as needed at bedtime, Seroquel 50 mg as needed 3 times per day. 12/07: increase seroquel to 200 at bedtime. Clarified no dose adjustment in ativan with patient. 12/08: increase abilify to 20 mg, pt's prior outpt dose. continues depressed, +AH. 12/09: intrusive AH persist. DC seroquel PRNs as ineffective, trial higher potency medication, perphenazine 4 mg PRN. otherwise continue current mgmt. 12/10: intrusive AH continue. trial of 8 mg per dose perphenazine PRNs. 12/11: feels perphenazine has been inadequate, seroquel may be better. will give it another day. no SI, AH continue. may be accepted to [facility] tomorrow. prozac increased to 40 mg daily for depression. 12/12: accepted to [facility] for saturday. no depressions, SI/AVH expressed. DC seroquel at HS and trazodone and start thorazine for sleep. titrate as indicated over w/e. 12/13: Continue current regimen and plans 12/14: Continue current regimen and plans. 12/15 continue tx. 12/16 continue tx. 12/17 pending css for dc next few days. Reason for continued inpatient stay Substantial Risk for: inability to function Time Spent With Patient Time: Total time managing care of this patient today ____ minutes.
[2023-12-18] MEDS: Acetaminophen 325 MG TABLET 650 MG PO (17:50)
[2023-12-18 20:00] VITALS: BP 123/71; PULSE 70; RESP 16; TEMP 36.8; O2SAT 96
[2023-12-18] MEDS: Nicotine Polacrilex Lozenge 4 MG LOZENGE BUCCAL (20:24)
[2023-12-18] MEDS: chlorproMAZINE HCl 100 MG TABLET 200 MG PO (20:24)
[2023-12-18] MEDS: chlorproMAZINE HCl 100 MG TABLET PO (23:31)
[2023-12-19 07:59] VITALS: BP 109/67; PULSE 76; RESP 14; TEMP 36.9; O2SAT 96
[2023-12-19] MEDS: methADONE HCl 20 MG/2 ML ORAL.CONC 75 MG PO (08:03)
[2023-12-19] MEDS: LORazepam 0.5 MG TABLET PO (08:36)
[2023-12-19] MEDS: FLUoxetine HCl 20 MG CAPSULE 40 MG PO (08:36)
[2023-12-19] MEDS: ARIPiprazole 20 MG TABLET PO (08:36)
[2023-12-19] MEDS: Gabapentin 300 MG CAPSULE PO (08:37)
== END 2023-12-19 10:33 | disposition home or self-care (01) | DRG 751 ==
LOC: HO.ED 22:30 → HO.PADLT16 12-04 13:21
PROVIDERS: Physician Assistant; Admitting Provider Registered Nurse; Emergency Provider Emergency Medicine; Visit Provider Social Worker
DX: F33.1 Major depressive disorder, recurrent, moderate (principal); R45.851 Suicidal ideations; Z91.148 Patient's other noncompliance with medication regimen for other reason; F11.20 Opioid dependence, uncomplicated; F43.10 Post-traumatic stress disorder, unspecified; F14.10 Cocaine abuse, uncomplicated; F17.210 Nicotine dependence, cigarettes, uncomplicated; Z59.01 Sheltered homelessness; Z71.6 Tobacco abuse counseling; Z79.899 Other long term (current) drug therapy
CPT/HCPCS: 36415; 80048; 80076; 80307; 81001; 81025; 83735; 85025; 87040; 87086; 93005; 99285; S9485

== ENCOUNTER → 2023-12-04 08:39 | Outpatient (BNV) | payer OTHER, SELFPAY | PROVIDERS: Admitting Provider Registered Nurse; Emergency Provider Emergency Medicine; Visit Provider Internal Medicine Cardiovascular Disease | DX: I45.81 Long QT syndrome (principal) | CPT/HCPCS: 93010 ==

== ENCOUNTER → 2023-12-04 12:12 | Outpatient (BNV) | payer OTHER, SELFPAY | PROVIDERS: Admitting Provider Registered Nurse; Emergency Provider Emergency Medicine; Visit Provider Psychiatry & Neurology Psychiatry | DX: F33.1 Major depressive disorder, recurrent, moderate (principal); F14.10 Cocaine abuse, uncomplicated; F43.11 Post-traumatic stress disorder, acute; F11.90 Opioid use, unspecified, uncomplicated | CPT/HCPCS: 90792; 99231; 99232 ==

== ENCOUNTER 2023-12-22 09:48 | Emergency (ER) | payer OTHER, SELFPAY ==
[2023-12-22 10:03] VITALS: BP 123/86; PULSE 91; RESP 18; TEMP 36; O2SAT 96; BMI 37.8
[2023-12-22 10:05] VITALS: BP 123/86; PULSE 91; RESP 18; TEMP 36; O2SAT 96
--- NOTE | 2023-12-22 10:15 | PC.NURSE ---
KRISTOFER BOLANOS on a voluntary basis from [facility] after not having antipsychotic medications for the previous 4 days. The patient started to experience auditory hallucinations as a result.
[2023-12-22 10:44] LABS: MANUAL DIFF FLAG NO
[2023-12-22 10:58] LABS: Appearance Urine Clear; Color Urine Yellow; Glucose Urine UA Negative (Negative); Leukocyte Esterase Urine Small (1+) (Negative); Nitrite Urine Negative (Negative); PH 5.5 (5.0-9.0); UMIC TRIGGER UACC YES; Urine Blood Negative (Negative); Urine Ketones Negative (Negative); Urine Protein Negative (Neg-Trace)
[2023-12-22 11:01] LABS: Basophils Percent Auto 0.8 % (0-2); Eosinophils Absolute Auto 0.3 X10*3/uL (0.0-0.4); Eosinophils Percent Auto 6.5 % (0-4); Hematocrit 33.3 % (37.0-47.0); Hemoglobin 10.8 g/dl (12.0-16.0); Imm Gran Abs Auto 0.01 X10*3/uL (0.00-0.03); Imm Gran Pct Auto 0.3 % (0.0-0.4); Lymphocytes Absolute Auto 1.3 X10*3/uL (1.2-4.9); Lymphocytes Percent Auto 34.3 % (20-40); Mean Corpuscular HGB Conc 32.4 g/dl (31.0-35.0); Mean Corpuscular Hemoglobin 24.7 pg (27.0-33.0); Mean Platelet Volume 10.4 fL (9.4-12.3); Monocytes Absolute Auto 0.3 X10*3/uL (0.1-1.2); Monocytes Percent Auto 7.1 % (2-11); Platelet Count 212 X10*3/uL (160-400); Red Blood Count 4.38 X10*6/uL (4.20-5.50); Red Cell Distribution Width 15.1 % (11.0-16.0); White Blood Count 3.8 X10*3/uL (4.8-10.8)
[2023-12-22 11:01] LABS: Amphetamine Screen Urine Not Detected (Not Detect); Barbiturates, Urine Not Detected (Not Detect); Benzodiazepines Screen Urine Not Detected (Not Detect); Buprenorphine Scr Not Detected (Not Detect); Cannabinoid Screen Urine Not Detected (Not Detect); Cocaine Screen Urine Not Detected (Not Detect); Fentanyl, urine POSITIVE (Not Detect); Methadone Screen, Urine Positive (Not Detect); Opiate Screen Urine Not Detected (Not Detect); Oxycodone Screen Urine Not Detected (Not Detect); Phencyclidine Screen Urine Not Detected (Not Detect)
[2023-12-22 11:02] LABS: Bacteria Urine None Seen (None Seen); Hyaline Casts Urine 0-2 /LPF (0-2); RBC Urine 0-2 /HPF (0-2); UACC Culture Trigger YES
[2023-12-22 11:02] LABS: Alanine Aminotransferase 40 U/L (0-31); Albumin Level 3.8 g/dL (3.5-5.0); Alkaline Phosphatase 104 U/L (39-117); Anion Gap 12 (12-20); Aspartate Amino Transferase 20 U/L (5-31); Bilirubin Total 0.3 mg/dL (0.0-1.0); Blood Urea Nitrogen 11 mg/dL (9-16); Calcium 8.8 mg/dL (8.4-10.2); Carbon Dioxide 24 mmol/L (22-29); Chloride 105 mmol/L (96-108); Creatinine Clr Calc Pharmacy 128.8; Estimated Glomerular Filt Rate > 60; Ethanol < 10 mg/dL; Glucose Random 129 mg/dL (60-115); Potassium 3.9 mmol/L (3.3-5.1); Sodium 137 mmol/L (135-145); Total Protein 7.3 g/dL (6.5-8.0)
--- NOTE | 2023-12-22 11:34 | MHC.CARE ---
Priscila Trujillo called from [facility] program looking to speak with CARE team clinician who assesses patient today. She can be reached at [phone] ext [phone]
--- NOTE | 2023-12-22 11:53 | ED_ITS ---
HPI - Psych General Chief Complaint: Psychiatric Symptoms Stated Complaint: W/D PSYCH MEDS, AMS Time Seen by Provider: 12/22/23 11:24 Source: patient Mode of arrival: ambulatory Limitations: no limitations History of Present Illness ED Provider: Kat SIMS HPI Narrative: This is a 27-year-old female history of major depression, anxiety, alcohol use disorder, polysubstance abuse, PTSD presenting to the emergency department with complaints of not taking psych meds for 4 days and having hallucinations. Denies SI and HI. Denies precipitating events to this. Unclear why she is med compliant. Denies tactile hallucinations. Denies any medical complaints. Denies fevers, chills, chest pain, shortness of breath, nausea, vomiting, abdominal pain, headache, vision changes, dizziness and weakness. Related Data Home Medications ?Medication ?Instructions ?Recorded ?Confirmed methadone 10 mg/mL oral 75 mg PO DAILY 10/30/23 12/22/23 concentrate (Methadone Intensol) nicotine 21 mg/24 hr daily 21 mg transdermal DAILY PRN 12/22/23 12/22/23 transdermal patch Nicotine Cravings Previous Rx's ?Medication ?Instructions ?Recorded aripiprazole 20 mg tablet (Abilify) 20 mg PO DAILY #30 tabs 12/16/23 chlorpromazine 100 mg tablet 200 mg (2 x 100 mg) PO BEDTIME #60 12/16/23 tabs fluoxetine 40 mg capsule 40 mg PO DAILY #30 caps 12/16/23 gabapentin 300 mg capsule 300 mg PO BID #60 caps 12/16/23 hydroxyzine HCl 50 mg tablet 100 mg (2 x 50 mg) PO BEDTIME PRN 12/16/23 insomnia #60 tabs lorazepam 0.5 mg tablet 0.5 mg PO BID PRN Anxiety #14 tabs 12/16/23 nicotine (polacrilex) 4 mg buccal 4 mg buccal Q2H PRN Nicotine 12/16/23 lozenge Cravings #60 ea perphenazine 8 mg tablet 8 mg PO BID PRN auditory 12/17/23 hallucinations #60 tabs Allergies Allergy/AdvReac Type Severity Reaction Status Date / Time Penicillins [PENICILLINS] Allergy Unknown Hives Verified 12/22/23 10:04 haloperidol AdvReac Severe Anaphylaxis Verified 12/22/23 10:04 Review of Systems 2 Review of Systems: Yes all other systems are reviewed and are negative [facility] Past Medical History Attestation statement: The following information was validated with the patient. Source: old records reviewed and nursing notes reviewed Medical History (Updated 12/22/23 @ 13:31 by ANTONINO Dodge) Opioid use disorder Substance induced mood disorder Drug-induced psychotic disorder Asthma Social History Social History Household Members: Other Household Members Other:: Homeless Housing: Other Housing Other:: Homeless living w/ cousins Do you presently have visiting nurse or other home services: No Alcohol intake: current Alcohol intake frequency: does not drink Patient Tobacco Use Status: Current everyday Tobacco user Tobacco use type: Cigarette Cigarette Packs Per Day: 0 Cigarettes Per Day: 5 Years Smoked: 10 Smoked in Last 30 Days: Yes e-Cigarette/Vaping Use: Currently Using Second Hand Smoke Exposure: No Use of substances other than those prescribed or required for medical reasons: No Substance Use Type: Crack/Cocaine, Heroin and Opiates Advance Directives: No Advance Directives Information Provided: Yes Advance Directives Date on File: 03/05/22 Do you have a plan to hurt others: No Plan Patient : No service: No Sexual orientation: Straight/Heterosexual Physical Exam 2 Vital Signs: Vital Signs: Last Vital Signs Temp 96.8 F 12/22/23 10:05 Pulse 91 12/22/23 10:05 Resp 18 12/22/23 10:05 BP 123/86 12/22/23 10:05 Pulse Ox 96 12/22/23 10:05 O2 Del Method Room Air 12/22/23 10:05 BMI result Body Mass Index 37.8 vss Appearance: Alert.? Oriented X3.? No acute distress.? Head: Normocephalic, atraumatic, no step-offs or deformities Eyes: Pupils equal, round and reactive to light.? CVS: Normal heart rate and rhythm.? Pulses normal.? Respiratory: No respiratory distress.? Breath sounds normal.? Abdomen: Soft and nontender.? Skin: Skin warm and dry.? Normal skin color.? Normal skin turgor.? Extremities: No lower extremity edema.? No calf ttp. 5/5 strength to bilateral upper and lower extremities Neuro: Oriented X 3.? No motor deficit.? No sensory deficit. CN 2-12 intact Course Reevaluation(s) Reevaluation #1: CBC w/ non specific leukopenia unlikley infectious in orgin. Baseline microcytic anemia noted. Chemistry unremarkable. UA negative. Urine tox + for methadone and fentanyl negative ethanol. Patient was given her home meds. Will restart her on all her home meds. Patient does have a script for all these medicines and they are at [facility] according to patient going to [place] has just not gotten them. She will make sure to get her meds. She is likely having these symptoms secondary to non med compliance. Not SI no HI. Care team did review her case, they report no reason to re-evaluate patient she is not threat to self or others. Not SI or HI. Will just need medications given to her inpatient to cook pickled meat her meds at the pharmacy tomorrow. Educated patient on diagnosis and treatment plan, answered all question, patient verbalizes understanding. At this time patient will be discharged home, advised to return with new or worsening symptoms. Educated on worrisome signs and symptoms and when to return. At this time I feel comfortable discharge home. Medical Decision Making Medical Decision Making [facility] Narrative: 1154 27 year old female presents w/ non med compliant and auditory hallucinations X 4 days PE- benign Hx and pe concerning for ptsd vs drug induced psychosis vs polysubstance abuse vs alcohol use disorder, depression, vs anxiety vs schizophrenia. Unlikely metabolic derangments Plan- medical clearance care team eval Differential Diagnosis Differential Diagnoses: The differential diagnosis associated with the presentation includes Hx and pe concerning for ptsd vs drug induced psychosis vs polysubstance abuse vs alcohol use disorder, depression, vs anxiety vs schizophrenia. Unlikely metabolic derangments Admission/Observation Consideration of admission/observation: Escalation of care including admission/observation considered Lab Data [facility] Lab Attestation statement: I reviewed the patient's lab results. 12/22/23 10:34 12/22/23 10:34 Labs: Lab Results 12/22/23 12/22/23 Range/Units 10:18 10:34 WBC 3.8 L (4.8-10.8) X10*3/uL RBC 4.38 (4.20-5.50) X10*6/uL Hgb 10.8 L (12.0-16.0) g/dl Hct 33.3 L (37.0-47.0) % MCV 76.0 L (80.0-98.0) fL MCH 24.7 L (27.0-33.0) pg MCHC 32.4 (31.0-35.0) g/dl RDW 15.1 (11.0-16.0) % Plt Count 212 (160-400) X10*3/uL MPV 10.4 (9.4-12.3) fL Immature Gran % (Auto) 0.3 (0.0-0.4) % Neut % (Auto) 51.0 (45-73) % Lymph % (Auto) 34.3 (20-40) % Ocean % (Auto) 7.1 (2-11) % Eos % (Auto) 6.5 H (0-4) % Baso % (Auto) 0.8 (0-2) % Lymph # (Auto) 1.3 (1.2-4.9) X10*3/uL Ocean # (Auto) 0.3 (0.1-1.2) X10*3/uL Eos # (Auto) 0.3 (0.0-0.4) X10*3/uL Baso # (Auto) 0.0 (0.0-0.2) X10*3/uL Abs Immat Gran (auto) 0.01 (0.00-0.03) X10*3/uL Absolute Neuts (auto) 2.0 (2.0-8.3) x10*3/uL Absolute Nucleated RBC 0.000 (0.0-0.012) X10*3/uL Nucleated RBC % (auto) 0.0 (0.0-0.2) /100WBC Sodium 137 (135-145) mmol/L Potassium 3.9 (3.3-5.1) mmol/L Chloride 105 (96-108) mmol/L Carbon Dioxide 24 (22-29) mmol/L Anion Gap 12 (12-20) BUN 11 (9-16) mg/dL Creatinine 0.74 (0.5-1.4) mg/dL Estim Creat Clear Calc 128.8 Estimated GFR > 60 Random Glucose 129 H (60-115) mg/dL Calcium 8.8 D (8.4-10.2) mg/dL Total Bilirubin 0.3 (0.0-1.0) mg/dL AST 20 (5-31) U/L ALT 40 H (0-31) U/L Alkaline Phosphatase 104 (39-117) U/L Total Protein 7.3 (6.5-8.0) g/dL Albumin 3.8 (3.5-5.0) g/dL Urine Color Yellow Urine Appearance Clear Urine pH 5.5 (5.0-9.0) Ur Specific [place] 1.020 (1.005-1.025) Urine Protein Negative (Neg-Trace) mg/dL Urine Glucose (UA) Negative (Negative) mg/dL Urine Ketones Negative (Negative) mg/dL Urine Blood Negative (Negative) Urine Nitrite Negative (Negative) Ur Leukocyte Esterase Small (1+) H (Negative) Urine RBC 0-2 (0-2) /HPF Urine WBC 6-10 H (0-5) /HPF Ur Squamous Epith Cells 6-10 (0-2) /HPF Urine Bacteria None Seen (None Seen) Hyaline Casts 0-2 (0-2) /LPF Urine Opiates Screen Not Detected (Not Detect) Ur Buprenorphine Scrn Not Detected (Not Detect) ng/mL Ur Oxycodone Screen Not Detected (Not Detect) ng/mL Urine Methadone Screen Positive H (Not Detect) ng/mL Urine Fentanyl Screen POSITIVE H (Not Detect) Ur Barbiturates Screen Not Detected (Not Detect) Ur Phencyclidine Scrn Not Detected (Not Detect) Ur Amphetamines Screen Not Detected (Not Detect) U Benzodiazepines Scrn Not Detected (Not Detect) Urine Cocaine Screen Not Detected (Not Detect) U Marijuana (THC) Screen Not Detected (Not Detect) Ethyl Alcohol < 10 mg/dL External Record Review External record reviewed: Inpatient record, Office record, Outpatient record, Prior outpatient labs, Prior outpatient radiology, Primary care record and Outside ED record Chronic Conditions Patient?s care impacted by: Other (PTSD, opiate use disorder, anxiety, depression, polysubstance abuse) Critical Care Time Critical Care Time Critical Care Time: No Discharge Plan Discharge Clinical Impression: Drug-induced psychotic disorder, PTSD (post-traumatic stress disorder) Patient Disposition: Home, Self-Care Instructions: Psychotic Disorder (ED) Additional Instructions: Take your medications as prescribed. If you were prescribed antibiotics today, it is important that you take your medication to their entirety, do not skip any doses, do not finish them early. Follow-up with your primary care provider this week. Return to the emergency department with new or worsening symptoms. Such as suicidal or homicidal ideation or hallucinaitons In case of emergency call 911 Prescriptions: No Action methadone [Methadone Intensol] 10 mg/mL Concentrate 75 mg PO DAILY Patient Comments: Last dose verified from [facility] administration sheet chlorpromazine 100 mg Tablet 200 mg PO BEDTIME Qty: 60 0RF aripiprazole [Abilify] 20 mg Tablet 20 mg PO DAILY Qty: 30 0RF nicotine (polacrilex) 4 mg Lozenge 4 mg buccal Q2H PRN (Reason: Nicotine Cravings) Qty: 60 0RF fluoxetine 40 mg capsule 40 mg PO DAILY Qty: 30 0RF hydroxyzine HCl 50 mg Tablet 100 mg PO BEDTIME PRN (Reason: insomnia) Qty: 60 0RF lorazepam 0.5 mg Tablet 0.5 mg PO BID PRN (Reason: Anxiety) Qty: 14 0RF gabapentin 300 mg Capsule 300 mg PO BID Qty: 60 0RF perphenazine 8 mg Tablet 8 mg PO BID PRN (Reason: auditory hallucinations) Qty: 60 0RF nicotine 21 mg/24 hr patch 24 hour 21 mg transdermal DAILY PRN (Reason: Nicotine Cravings) Referrals: Physician,None [Primary Care Provider] - 2 days Interventions: [place]-Suicide Risk Severity Scale Last Done: 12/22/23 10:05 Print Language: Japanese
[2023-12-22] MEDS: ARIPiprazole 20 MG TABLET PO (13:35)
[2023-12-22] MEDS: Perphenazine 8 MG TABLET PO (13:35)
[2023-12-22 13:42] VITALS: BP 123/86; PULSE 91; RESP 18; TEMP 36; O2SAT 96
== END 2023-12-22 14:05 | disposition home or self-care (01) ==
PROVIDERS: Emergency Provider Emergency Medicine
DX: F43.10 Post-traumatic stress disorder, unspecified (principal); R44.3 Hallucinations, unspecified; Z91.148 Patient's other noncompliance with medication regimen for other reason; Z79.899 Other long term (current) drug therapy
CPT/HCPCS: 36415; 80053; 80307; 81001; 85025; 87086; 99284; S9485

== ENCOUNTER 2024-01-04 11:47 | Inpatient (IN) | payer OTHER, SELFPAY ==
--- NOTE | 2024-01-04 | ECG_ITS ---
Test Reason : cocaine use/tachycardia Blood Pressure : / mmHG Vent. Rate : 108 BPM Atrial Rate : 108 BPM P-R Int : 142 ms QRS Dur : 086 ms QT Int : 366 ms P-R-T Axes : 060 021 028 degrees QTc Int : 490 ms Sinus tachycardia Otherwise normal ECG When compared with ECG of 04-DEC-2023 08:39, Vent. rate has increased BY 47 BPM Referred By: Generic ED Physician Electronically Signed By:HIWOT DEMPSEY
--- NOTE | ~2024-01-04 | XR_ITS ---
EXAMINATION: XR CHEST CLINICAL INFORMATION: Covid positive, cough COMPARISON: 02/22/2022 TECHNIQUE: 2 views of the chest were obtained. FINDINGS: Lungs are well-inflated and clear. Trachea is midline in position. No interstitial disease, consolidation or mass. No pleural effusion or pneumothorax. Cardiac silhouette and pulmonary vessels are normal in size. The mediastinum and bianca have normal contour. The visualized bones and upper abdomen are unremarkable. XR/XR chest 2V IMPRESSION: Lungs have a normal appearance. No radiographic evidence of pneumonia.
[2024-01-04 11:48] VITALS: BP 155/93; PULSE 117; RESP 18; TEMP 36.6; O2SAT 98; BMI 41.0
--- NOTE | 2024-01-04 12:19 | ED_ITS ---
HPI - Psych General Chief Complaint: Psychiatric Symptoms Stated Complaint: depressed crisis Time Seen by Provider: 01/04/24 11:51 Source: patient Mode of arrival: ambulatory Limitations: no limitations History of Present Illness ED Provider: Roberta Gibson APRN HPI Narrative: 28-year-old female with history of polysubstance use, depression presents to the ER with complaints of SI with no plan. No HI or hallucinations. Patient reports she was in a program but last 2 days ago. Her last dose of methadone was 2 days ago. It was 75 mg. Since leaving the program she has been using IV heroin, cocaine and drinking alcohol. No physical complaints. Related Data Home Medications ?Medication ?Instructions ?Recorded ?Confirmed methadone 10 mg/mL oral 75 mg PO DAILY 10/30/23 01/04/24 concentrate (Methadone Intensol) nicotine 21 mg/24 hr daily 21 mg transdermal DAILY PRN 12/22/23 01/04/24 transdermal patch Nicotine Cravings atomoxetine 25 mg capsule 25 mg PO QAM 01/04/24 01/04/24 escitalopram oxalate 5 mg tablet 5 mg PO DAILY 01/04/24 01/04/24 Previous Rx's ?Medication ?Instructions ?Recorded aripiprazole 20 mg tablet (Abilify) 20 mg PO DAILY #30 tabs 12/16/23 chlorpromazine 100 mg tablet 200 mg (2 x 100 mg) PO BEDTIME #60 12/16/23 tabs fluoxetine 40 mg capsule 40 mg PO DAILY #30 caps 12/16/23 gabapentin 300 mg capsule 300 mg PO BID #60 caps 12/16/23 hydroxyzine HCl 50 mg tablet 100 mg (2 x 50 mg) PO BEDTIME PRN 12/16/23 insomnia #60 tabs lorazepam 0.5 mg tablet 0.5 mg PO BID PRN Anxiety #14 tabs 12/16/23 nicotine (polacrilex) 4 mg buccal 4 mg buccal Q2H PRN Nicotine 12/16/23 lozenge Cravings #60 ea Allergies Allergy/AdvReac Type Severity Reaction Status Date / Time Penicillins [PENICILLINS] Allergy Unknown Hives Verified 01/04/24 11:54 haloperidol AdvReac Severe Anaphylaxis Verified 01/04/24 11:54 Review of Systems 2 Review of Systems: Yes all other systems are reviewed and are negative Constitutional: Constitutional: Reports no additional constitutional complaints, Denies body ache(s), Denies chills, Denies fever(s), Denies headache(s) and Denies weakness Eyes: Eyes: Reports no additional eye complaints and Denies change in vision ENT: Reports system reviewed and no additional complaints, except as documented, Denies dizziness, Denies headache(s), Denies nasal congestion, Denies nasal discharge and Denies neck pain Cardiovascular: Cardiovascular: Reports no additional cardiovascular complaints, Denies chest pain, Denies leg edema and Denies dyspnea Respiratory: Respiratory: Reports no additional respiratory complaints, Denies cough and Denies dyspnea Gastrointestinal: Gastrointestinal: Reports no additional gastrointestinal complaints, Denies abdominal pain, Denies diarrhea, Denies nausea and Denies vomiting Genitourinary: Genitourinary: Reports no additional female genitourinary complaints and Denies urinary incontinence Musculoskeletal: Musculoskeletal: Reports no additional musculoskeletal complaints, Denies back pain, Denies arthralgias, Denies joint swelling, Denies neck pain, Denies numbness and Denies tingling Integumentary/Breasts: Skin/Breast: Reports system reviewed and no additional complaints, except as docu and Denies rash Neurologic: Reports system reviewed and no additional complaints, except as documented, Denies Abnormal speech present, Denies dizziness, Denies headache(s), Denies numbness, Denies tingling and Denies weakness Psychiatric: Psychiatric: Reports anxiety, Reports depression, Denies homicidal ideation and Reports suicidal ideation PMF Past Medical History Attestation statement: The following information was validated with the patient. Source: old records reviewed and nursing notes reviewed Medical History Substance induced mood disorder Drug-induced psychotic disorder Asthma Social History Social History Household Members: Other Household Members Other:: Homeless Housing: Other Housing Other:: Homeless living w/ cousins Do you presently have visiting nurse or other home services: No Alcohol intake: current Alcohol intake frequency: a few times a week Patient Tobacco Use Status: Current everyday Tobacco user Tobacco use type: Cigarette Cigarette Packs Per Day: 0 Cigarettes Per Day: 5 Years Smoked: 10 Smoked in Last 30 Days: Yes e-Cigarette/Vaping Use: Currently Using Second Hand Smoke Exposure: No Use of substances other than those prescribed or required for medical reasons: Yes Substance Use Type: Crack/Cocaine, Heroin and IV Drugs Substance Use Frequency: Recent Binge Advance Directives: No Advance Directives Information Provided: No Advance Directives Date on File: 03/05/22 Do you have a plan to hurt others: No Plan Patient : No service: No Sexual orientation: Straight/Heterosexual Physical Exam 2 Vital Signs: Vital Signs: Last Vital Signs Temp 98.2 F 01/04/24 15:51 Pulse 107 H 01/04/24 15:51 Resp 18 01/04/24 15:51 BP 117/78 01/04/24 15:51 Pulse Ox 97 01/04/24 15:51 O2 Del Method Room Air 01/04/24 15:51 BMI result Body Mass Index 41.0 Const: General: cooperative, healthy appearing and anxious O rientation/consciousness: patient oriented x3 Limitations: no limitations HEENT: Head: Yes normal to inspection Ears: hearing grossly normal bilaterally General nose exam: Normal external nose present Face and sinus: Yes normal facial exam Mouth: Normal oral and palatal mucosa present Throat: Yes posterior oropharynx normal Eyes: General: appearance normal, both eyes and all related structures P upils: Equal, round and reactive pupils present Neck: Neck: Yes normal visual inspection Chest: Chest palpation & inspection: normal inspection of the chest Resp: Effort & Inspection: normal respiratory effort Auscultation: clear to auscultation bilaterally Cardio: Rate: regular rate Rhythm: regular rhythm Peripheral pulses: P eripheral pulses 2+ throughout GI: Inspection: Yes normal to inspection Palpation (GI): Soft to palpation and nontender Auscultation: normal bowel sounds Back/Spine/Pelvis: Thoracic/Lumbar Spine: thoracic and lumbar spine normal to inspection Skin: General skin exam: no rashes or lesions noted Neuro: General: patient oriented x3, no focal motor deficits and normal sensation to monofilament Cranial nerves: Yes Equal, round and reactive pupils present Cognition (Neuro): normal cognition Speech: No Abnormal speech present Gait exam (Neuro): Normal gait present Motor exam (neuro): 5/5 motor strength present throughout Extrem: General: Yes normal to inspection Course Course Course Narrative: Covid +. No hypoxia or tachypnea. NO symptoms Nursing aware to initiate precautions. Reevaluation(s) Reevaluation #1: Seen by crisis, signed section 12, plan is dual diagnosis BS. Placed in physician observation pending disposition Reevaluation #2: Physician observation continued. VS stable, no hypoxia chest xray clear, no acute events overnight, inpatient bed search will continue to monitor Medications Administered Generic Name Dose Route Start Last Admin Trade Name Freq PRN Reason Stop Dose Admin Chlorpromazine HCl 200 mg 01/04/24 21:00 01/04/24 20:34 Chlorpromazine Hcl 100 Mg Tablet PO 200 mg BEDTIME JOHN Administration Gabapentin 300 mg 01/04/24 21:00 01/04/24 20:34 Gabapentin 300 Mg Capsule PO 300 mg BID JOHN Administration Discontinued Medications Generic Name Dose Route Start Last Admin Trade Name Freq PRN Reason Stop Dose Admin Lorazepam 2 mg 01/04/24 12:22 01/04/24 12:51 Lorazepam 1 Mg Tablet PO 01/04/24 12:23 2 mg ONCE ONE Administration Methadone HCl 70 mg 01/04/24 16:17 01/04/24 17:02 Methadone Hcl 20 Mg/2 Ml Oral.Conc PO 01/04/24 16:18 70 mg ONCE ONE Administration Medical Decision Making Medical Decision Making MDM Narrative: 28-year-old female with history of polysubstance use, depression presents to the ER with complaints of SI with no plan.? No HI or hallucinations.? Patient reports she was in a program but last 2 days ago.? Her last dose of methadone was 2 days ago.? It was 75 mg.? Since leaving the program she has been using IV heroin, cocaine and drinking alcohol. No physical complaints.? +++anxious, crying. No concern for trauma or ingestion. WIll need labs, EKG, EDWARDS, ativan PO WIll have nursing confirm methadone dose Will order CARE team consult. Differential Diagnosis Differential Diagnoses: The differential diagnosis associated with the presentation includes depression, polysubstance Admission/Observation Consideration of admission/observation: Escalation of care including admission/observation considered +SI, needs inpatient psych Consult Healthcare Provider Management of the patient was discussed with: Behavioral Health Provider See course of care Lab Data [facility] Lab Attestation statement: I reviewed the patient's lab results. 01/04/24 12:16 01/04/24 12:16 Labs: Lab Results 01/04/24 Range/Units 12:16 WBC 5.1 (4.8-10.8) X10*3/uL RBC 4.38 (4.20-5.50) X10*6/uL Hgb 10.8 L (12.0-16.0) g/dl Hct 32.7 L (37.0-47.0) % MCV 74.7 L (80.0-98.0) fL MCH 24.7 L (27.0-33.0) pg MCHC 33.0 (31.0-35.0) g/dl RDW 15.8 (11.0-16.0) % Plt Count 212 (160-400) X10*3/uL MPV 10.2 (9.4-12.3) fL Immature Gran % (Auto) 0.2 (0.0-0.4) % Neut % (Auto) 70.9 (45-73) % Lymph % (Auto) 19.0 L (20-40) % [place] % (Auto) 9.1 (2-11) % Eos % (Auto) 0.4 (0-4) % Baso % (Auto) 0.4 (0-2) % Lymph # (Auto) 1.0 L (1.2-4.9) X10*3/uL Vernon # (Auto) 0.5 (0.1-1.2) X10*3/uL Eos # (Auto) 0.0 (0.0-0.4) X10*3/uL Baso # (Auto) 0.0 (0.0-0.2) X10*3/uL Abs Immat Gran (auto) 0.01 (0.00-0.03) X10*3/uL Absolute Neuts (auto) 3.6 (2.0-8.3) x10*3/uL Absolute Nucleated RBC 0.000 (0.0-0.012) X10*3/uL Nucleated RBC % (auto) 0.0 (0.0-0.2) /100WBC Sodium 136 (135-145) mmol/L Potassium 4.2 (3.3-5.1) mmol/L Chloride 103 (96-108) mmol/L Carbon Dioxide 21 L (22-29) mmol/L Anion Gap 16 (12-20) BUN 11 (9-16) mg/dL Creatinine 0.73 (0.5-1.4) mg/dL Estim Creat Clear Calc 135.5 Estimated GFR > 60 Random Glucose 93 (60-115) mg/dL Calcium 9.3 (8.4-10.2) mg/dL Total Bilirubin 0.3 (0.0-1.0) mg/dL AST 31 (5-31) U/L ALT 28 (0-31) U/L Alkaline Phosphatase 98 (39-117) U/L Total Protein 8.5 H (6.5-8.0) g/dL Albumin 4.4 (3.5-5.0) g/dL Urine Color Yellow Urine Appearance Clear Urine pH 5.5 (5.0-9.0) Ur Specific [place] 1.020 (1.005-1.025) Urine Protein Trace (Neg-Trace) mg/dL Urine Glucose (UA) Negative (Negative) mg/dL Urine Ketones 15 (Negative) mg/dL Urine Blood Negative (Negative) Urine Nitrite Negative (Negative) Ur Leukocyte Esterase Small (1+) H (Negative) Urine RBC 0-2 (0-2) /HPF Urine WBC 11-20 H (0-5) /HPF Ur Squamous Epith Cells 6-10 (0-2) /HPF Urine Bacteria None Seen (None Seen) Hyaline Casts 0-2 (0-2) /LPF Urine Test NEGATIVE (NEGATIVE) Urine Opiates Screen POSITIVE H (Not Detect) Ur Buprenorphine Scrn Not Detected (Not Detect) ng/mL Ur Oxycodone Screen Not Detected (Not Detect) ng/mL Urine Methadone Screen Positive H (Not Detect) ng/mL Urine Fentanyl Screen POSITIVE H (Not Detect) Ur Barbiturates Screen Not Detected (Not Detect) Ur Phencyclidine Scrn Not Detected (Not Detect) Ur Amphetamines Screen Not Detected (Not Detect) U Benzodiazepines Scrn Not Detected (Not Detect) Urine Cocaine Screen POSITIVE H (Not Detect) U Marijuana (THC) Screen POSITIVE H (Not Detect) Ethyl Alcohol < 10 mg/dL COVID-19 (LUX) Positive A (Negative) COVID-19 Clin Com See Note Independent Interpretation I performed an independent interpretation of an: EKG and Plain X-Ray Interpretation: I independently viewed the EKG which shows sinus tachycardia with a rate of 108, normal HI, normal QRS, normal QT I independently reviewed the chest x-ray and agree with the radiology report Radiology Impression Discussion of test interpretation with radiology: I have reviewed the radiologist's reading. Radiologist Impression: [id number] [place] [id number] XRay Report Signed Patient: Abby Pires MR#: [id number] : 1995 Acct:[id number] Age/Sex: 28 / F ADM Date: 01/04/24 Loc: HO.ED Attending Dr: Ordering Physician: Roberta Root NP Date of Service: 01/04/24 Procedure(s): XR chest 2V Accession Number(s): [id number] cc: Physician,Unknown ; Roberta Root NP~ EXAMINATION: XR CHEST CLINICAL INFORMATION: Covid positive, cough COMPARISON: 02/22/2022 TECHNIQUE: 2 views of the chest were obtained. FINDINGS: Lungs are well-inflated and clear. Trachea is midline in position. No interstitial disease, consolidation or mass. No pleural effusion or pneumothorax. Cardiac silhouette and pulmonary vessels are normal in size. The mediastinum and bianca have normal contour. The visualized bones and upper abdomen are unremarkable. XR/XR chest 2V IMPRESSION: Lungs have a normal appearance. No radiographic evidence of pneumonia. Prescription Management I considered prescription management with: Antiviral Discharge Plan Discharge Clinical Impression: MDD (major depressive disorder), recurrent episode, moderate Patient Disposition: Still a Patient Prescriptions: No Action methadone [Methadone Intensol] 10 mg/mL Concentrate 75 mg PO DAILY Patient Comments: Last dose verified from [facility] administration sheet atomoxetine 25 mg capsule 25 mg PO QAM escitalopram oxalate 5 mg tablet 5 mg PO DAILY chlorpromazine 100 mg Tablet 200 mg PO BEDTIME Qty: 60 0RF aripiprazole [Abilify] 20 mg Tablet 20 mg PO DAILY Qty: 30 0RF nicotine (polacrilex) 4 mg Lozenge 4 mg buccal Q2H PRN (Reason: Nicotine Cravings) Qty: 60 0RF fluoxetine 40 mg capsule 40 mg PO DAILY Qty: 30 0RF hydroxyzine HCl 50 mg Tablet 100 mg PO BEDTIME PRN (Reason: insomnia) Qty: 60 0RF lorazepam 0.5 mg Tablet 0.5 mg PO BID PRN (Reason: Anxiety) Qty: 14 0RF gabapentin 300 mg Capsule 300 mg PO BID Qty: 60 0RF nicotine 21 mg/24 hr patch 24 hour 21 mg transdermal DAILY PRN (Reason: Nicotine Cravings) Interventions: [place]-Suicide Risk Severity Scale Last Done: 01/04/24 12:23 Print Language: Guyanese
[2024-01-04 12:23] VITALS: RESP 14
[2024-01-04 12:25] LABS: MANUAL DIFF FLAG NO
--- NOTE | 2024-01-04 12:28 | PC.NURSE ---
BELONGINGS TO MARY JO Of note, $16 in pocket of the burgundy pants
[2024-01-04 12:29] LABS: Basophils Percent Auto 0.4 % (0-2); Eosinophils Percent Auto 0.4 % (0-4); Hematocrit 32.7 % (37.0-47.0); Hemoglobin 10.8 g/dl (12.0-16.0); Imm Gran Abs Auto 0.01 X10*3/uL (0.00-0.03); Imm Gran Pct Auto 0.2 % (0.0-0.4); Mean Corpuscular Hemoglobin 24.7 pg (27.0-33.0); Mean Corpuscular Volume 74.7 fL (80.0-98.0); Mean Platelet Volume 10.2 fL (9.4-12.3); Monocytes Absolute Auto 0.5 X10*3/uL (0.1-1.2); Monocytes Percent Auto 9.1 % (2-11); Neutrophils Absolute Auto 3.6 x10*3/uL (2.0-8.3); Neutrophils Percent Auto 70.9 % (45-73); Platelet Count 212 X10*3/uL (160-400); Red Blood Count 4.38 X10*6/uL (4.20-5.50); Red Cell Distribution Width 15.8 % (11.0-16.0); White Blood Count 5.1 X10*3/uL (4.8-10.8)
[2024-01-04 12:31] LABS: Appearance Urine Clear; Color Urine Yellow; Glucose Urine UA Negative (Negative); Leukocyte Esterase Urine Small (1+) (Negative); Nitrite Urine Negative (Negative); PH 5.5 (5.0-9.0); UMIC TRIGGER UA YES; Urine Blood Negative (Negative); Urine Ketones 15 mg/dL (Negative); Urine Protein Trace mg/dL (Neg-Trace)
[2024-01-04 12:34] LABS: COVID-19 Test Positive (Negative); IDNOW Serial# 58CA691E
[2024-01-04 12:37] LABS: Amphetamine Screen Urine Not Detected (Not Detect); Barbiturates, Urine Not Detected (Not Detect); Benzodiazepines Screen Urine Not Detected (Not Detect); Buprenorphine Scr Not Detected (Not Detect); Cannabinoid Screen Urine POSITIVE (Not Detect); Cocaine Screen Urine POSITIVE (Not Detect); Fentanyl, urine POSITIVE (Not Detect); Methadone Screen, Urine Positive (Not Detect); Opiate Screen Urine POSITIVE (Not Detect); Oxycodone Screen Urine Not Detected (Not Detect); Phencyclidine Screen Urine Not Detected (Not Detect)
[2024-01-04 12:42] LABS: Alanine Aminotransferase 28 U/L (0-31); Albumin Level 4.4 g/dL (3.5-5.0); Alkaline Phosphatase 98 U/L (39-117); Anion Gap 16 (12-20); Aspartate Amino Transferase 31 U/L (5-31); Bilirubin Total 0.3 mg/dL (0.0-1.0); Blood Urea Nitrogen 11 mg/dL (9-16); Calcium 9.3 mg/dL (8.4-10.2); Carbon Dioxide 21 mmol/L (22-29); Chloride 103 mmol/L (96-108); Creatinine Clr Calc Pharmacy 135.5; Estimated Glomerular Filt Rate > 60; Ethanol < 10 mg/dL; Glucose Random 93 mg/dL (60-115); Potassium 4.2 mmol/L (3.3-5.1); Sodium 136 mmol/L (135-145); Total Protein 8.5 g/dL (6.5-8.0)
[2024-01-04 12:44] LABS: Bacteria Urine None Seen (None Seen); Hyaline Casts Urine 0-2 /LPF (0-2); RBC Urine 0-2 /HPF (0-2)
[2024-01-04] MEDS: LORazepam 1 MG TABLET 2 MG PO (12:51)
[2024-01-04 13:42] LABS: UPreg QC Valid YES; Urine Pregnancy NEGATIVE (NEGATIVE)
--- NOTE | 2024-01-04 15:46 | PC.NURSE ---
UNABLE TO OBTAIN MTD DOSE WITH [facility] OR [facility], BOTH OFFICES CLOSED. PROVIDER TO BE MADE AWARE
[2024-01-04 15:48] VITALS: PULSE 107
[2024-01-04 15:51] VITALS: BP 117/78; PULSE 107; RESP 18; TEMP 36.8; O2SAT 97
--- NOTE | 2024-01-04 16:15 | PC.NURSE ---
LAST DOSE MTD VERIFIED WITH [facility] IN [place]. DOSED 70MG ON 01/02/2024.
--- NOTE | 2024-01-04 16:43 | HE.PHANOTE ---
Addendum entered by Holley Villalta [facility] 01/06/24 09:48: Pt received from [facility] ([phone]) Laine spoke with ABE De Jesus at facility. Pt last received 75 mg w/ 6 take home bottles on 12/30/23. Pt took her last dose on 01/02. When asking Laine regarding difference in dose and dates: the patient said she's confused as to why the [facility] said 70mg because she has been on 75mg for quite some time. Original Note: METHADONE VERIFICATION Dose: 70mg, last dose on 01/02/24 @0900 per Phoebe Adam RN at [facility]
[2024-01-04] MEDS: methADONE HCl 20 MG/2 ML ORAL.CONC 70 MG PO (17:02)
--- NOTE | 2024-01-04 17:12 | PC.NURSE ---
PT AWARE SHE IS TO REMAIN HERE FOR 5 DAYS BEFORE DUAL DX PLACEMENT GIVEN COVID + STATUS.
[2024-01-04] MEDS: chlorproMAZINE HCl 100 MG TABLET 200 MG PO (20:34)
[2024-01-04] MEDS: Gabapentin 300 MG CAPSULE PO (20:34)
[2024-01-05] MEDS: FLUoxetine HCl 20 MG CAPSULE 40 MG PO (10:25)
[2024-01-05] MEDS: Gabapentin 300 MG CAPSULE PO ×2 (10:25→19:22)
[2024-01-05] MEDS: ARIPiprazole 20 MG TABLET PO (10:26)
[2024-01-05] MEDS: Escitalopram Oxalate 5 MG TABLET PO (10:30)
--- NOTE | 2024-01-05 13:18 | PHA.MEDREC ---
Addendum entered by Holley Villalta RPh 01/05/24 13:57: Reviewed [facility] Original Note: Pharmacy Consult ? Medication Reconciliation Pharmacy has completed the medication reconciliation. reviewed med rec done by nursing.
[2024-01-05 14:00] VITALS: BP 104/65; PULSE 98; RESP 18; TEMP 36.8; O2SAT 95
[2024-01-05] MEDS: Nicotine Polacrilex Lozenge 4 MG LOZENGE BUCCAL ×2 (14:14→19:22)
[2024-01-05] MEDS: LORazepam 0.5 MG TABLET PO (19:22)
[2024-01-05] MEDS: chlorproMAZINE HCl 100 MG TABLET 200 MG PO (19:22)
[2024-01-05 19:47] VITALS: BP 115/69; PULSE 85; RESP 16; TEMP 36.8; O2SAT 97
--- NOTE | 2024-01-06 05:15 | PC.NURSE ---
Addendum entered by Lorenzo Dobson RN 01/06/24 05:19: Med rec completed/approved/patient compliant with her medication Original Note: Patient slept through the night, no distress observed/reported, med rec completed/pending provider's approval, disposition per care team is section 12 dual diagnosis bed search, no behavior and safety issues, safety check maintained on 15 minutes, VSS, will continue to monitor
[2024-01-06 06:29] VITALS: BP 110/65; PULSE 91; TEMP 36.6; O2SAT 95
--- NOTE | 2024-01-06 07:04 | PC.NURSE ---
Assumed care of patient at 0645, patient appears to be sleeping, respirations even and unlabored, no apparent distress noted. patient remains covid + without symptoms. Continue plan of care for dual dx bedsearch
[2024-01-06] MEDS: ARIPiprazole 20 MG TABLET PO (08:05)
[2024-01-06] MEDS: FLUoxetine HCl 20 MG CAPSULE 40 MG PO (08:05)
[2024-01-06] MEDS: Gabapentin 300 MG CAPSULE PO ×2 (08:05→21:03)
[2024-01-06] MEDS: Escitalopram Oxalate 5 MG TABLET PO (08:05)
[2024-01-06] MEDS: Nicotine Polacrilex Lozenge 4 MG LOZENGE BUCCAL ×4 (08:22→19:01)
--- NOTE | 2024-01-06 08:42 | PC.NURSE ---
methadone verified by this RN with [facility]
--- NOTE | 2024-01-06 08:59 | MHC.CARE ---
Rad Team completed a dual bed search. T/w called [facility], [facility] and [facility]. These facilities are full for the day. [facility] has 1 female bed? does not accept COVID + . Bed search is exhausted. Care Team notified.
[2024-01-06] MEDS: LORazepam 0.5 MG TABLET PO ×2 (09:22→21:48)
[2024-01-06] MEDS: methADONE HCl 20 MG/2 ML ORAL.CONC 75 MG PO (10:16)
--- NOTE | 2024-01-06 19:22 | PC.NURSE ---
patient appears to remain at rest presently, came out and asked for snacks and a niotine lozenge at beginning of the evening patient appears in no distress.
[2024-01-06 20:10] VITALS: BP 112/63; PULSE 79; RESP 18; TEMP 36.6; O2SAT 96
[2024-01-06] MEDS: chlorproMAZINE HCl 100 MG TABLET 200 MG PO (21:04)
[2024-01-07] MEDS: Escitalopram Oxalate 5 MG TABLET PO (09:20)
[2024-01-07] MEDS: Gabapentin 300 MG CAPSULE PO ×2 (09:22→22:51)
[2024-01-07] MEDS: methADONE HCl 20 MG/2 ML ORAL.CONC 75 MG PO (09:22)
[2024-01-07] MEDS: FLUoxetine HCl 20 MG CAPSULE 40 MG PO (09:22)
[2024-01-07] MEDS: ARIPiprazole 20 MG TABLET PO (09:22)
[2024-01-07] MEDS: LORazepam 0.5 MG TABLET PO ×2 (09:37→17:55)
[2024-01-07] MEDS: Nicotine Polacrilex Lozenge 4 MG LOZENGE BUCCAL ×3 (09:37→22:52)
[2024-01-07] MEDS: LORazepam 1 MG TABLET PO (10:42)
[2024-01-07 13:35] VITALS: RESP 16
[2024-01-07 13:51] VITALS: BP 123/69; PULSE 95; RESP 16; TEMP 36.6; O2SAT 97
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
[2024-01-07] MEDS: chlorproMAZINE HCl 25 MG TABLET 50 MG PO (15:26)
--- NOTE | 2024-01-07 15:35 | PC.ADMIT ---
Abby is a 28-year-old female admitted [facility] on a CV for treatment of MDD, PTSD, and opiate use disorder. Tox screen positive for opiates, methadone, fentanyl, cocaine, and THC. Medical hx Lupus. Belongings are in decon. Pt reported last using IV heroin and cocaine prior to admission to ED on 01/03. Pt also tested positive for COVID 01/03 and is on isolation precautions. Pt reported that she got kicked out of [facility] for using a vape but she hopes to return upon discharge. Pt is currently homeless and presented to the ED due to increased depression and SI without a plan. During admission assessment, pt was A&Ox4, pleasant and cooperative. Thoughts linear and organized. Pt declined to sign CRISTINE for her father and psychiatrist. Pt currently denies SI but will reach out to staff if thoughts occur. Pt's goal for admission is to have medications adjusted because they don't help me the way they used to. Pt denies any issues with sleep or appetite. Pt placed on 15 minute safety checks.
[2024-01-07 22:38] VITALS: BP 115/69; PULSE 87; RESP 16; TEMP 36.9; O2SAT 97
[2024-01-07] MEDS: hydrOXYzine HCL 50 MG TABLET 100 MG PO (22:51)
[2024-01-07] MEDS: Acetaminophen 325 MG TABLET 650 MG PO (22:51)
[2024-01-07] MEDS: chlorproMAZINE HCl 100 MG TABLET 200 MG PO (22:51)
[2024-01-07] MEDS: traZODone HCL 50 MG TABLET PO (22:52)
[2024-01-08 07:43] VITALS: BP 115/59; PULSE 93; RESP 16; TEMP 36.8; O2SAT 96
[2024-01-08] MEDS: methADONE HCl 20 MG/2 ML ORAL.CONC 75 MG PO (08:29)
[2024-01-08] MEDS: Nicotine 21 MG PATCH.TD24 TRANSDERMA (08:59)
[2024-01-08] MEDS: LORazepam 0.5 MG TABLET PO ×2 (08:59→16:29)
[2024-01-08] MEDS: ARIPiprazole 20 MG TABLET PO (08:59)
[2024-01-08] MEDS: Gabapentin 300 MG CAPSULE PO ×2 (08:59→20:40)
[2024-01-08] MEDS: FLUoxetine HCl 20 MG CAPSULE 60 MG PO (08:59)
[2024-01-08] MEDS: chlorproMAZINE HCl 25 MG TABLET 50 MG PO (10:19)
[2024-01-08] MEDS: Nicotine Polacrilex Lozenge 4 MG LOZENGE BUCCAL ×3 (10:20→20:00)
--- NOTE | 2024-01-08 12:52 | HO.PSYCHPN ---
Subjective Subjective Date of Service: 01/08/24 Reason For Visit: SI Interim History: calm, cooperative. feeling thorazine 50s are too sedating, agrees to decrease PRN thorazine to 25 mg each. waiting to return to [facility]. per staff, in isolation 2/2 COVID, precautions in place until at a minimum tomorrow. c/o sore throat, rhinorrhea. Mental Status Exam Mental Status Exam Narrative: Pt is alert and oriented; behavior is cooperative and calm; dressed in casual attire; mood is described as anxious. eye contact appropriate; Speech is normal rate, volume and not pressured; thought process is organized and goal directed; Thought content is on tx. no SI/SIBI/HI/AVH expressed. Diagnostics Vital Signs (24Hr): Vital Signs - 24 hr 01/07/24 13:35 01/07/24 13:51 01/07/24 22:38 Temperature 98 F 98.4 F Pulse Rate 95 87 Respiratory Rate 16 16 16 Blood Pressure 123/69 115/69 Pulse Oximetry 97 97 Oxygen Delivery Method Room Air Room Air 01/08/24 07:43 Temperature 98.3 F Pulse Rate 93 Respiratory Rate 16 Blood Pressure 115/59 L Pulse Oximetry 96 Oxygen Delivery Method Room Air BMI result Body Mass Index 41.0 Labs 01/04/24 12:16 01/04/24 12:16 Imaging Radiology Impressions: ITS Impressions Chest X-Ray 01/04/24 15:18 IMPRESSION: Lungs have a normal appearance. No radiographic evidence of pneumonia. Medications Medications Current Medications Acetaminophen (Acetaminophen 325 Mg Tablet) 650 mg PO Q6H PRN PRN Reason: Headache/Pain Mild Scale (1-3) Last Admin: 01/07/24 22:51 Dose: 650 mg Al Hydroxide/Mg Hydroxide (Magnesium Hydrox/Alum Hydrox 30 Ml Oral.Susp) 30 ml PO Q6H PRN PRN Reason: Heartburn/Nausea Aripiprazole (Aripiprazole 20 Mg Tablet) 20 mg PO DAILY [facility] Last Admin: 01/08/24 08:59 Dose: 20 mg Chlorpromazine HCl (Chlorpromazine Hcl 100 Mg Tablet) 200 mg PO BEDTIME [facility] Last Admin: 01/07/24 22:51 Dose: 200 mg Chlorpromazine HCl (Chlorpromazine Hcl 25 Mg Tablet) 25 mg PO Q4H PRN PRN Reason: severe anxiety/AH Fluoxetine HCl (Fluoxetine Hcl 20 Mg Capsule) 60 mg PO DAILY [facility] Last Admin: 01/08/24 08:59 Dose: 60 mg Gabapentin (Gabapentin 300 Mg Capsule) 300 mg PO BID [facility] Last Admin: 01/08/24 08:59 Dose: 300 mg Hydroxyzine HCl (Hydroxyzine Hcl 50 Mg Tablet) 100 mg PO BEDTIME PRN PRN Reason: insomnia Last Admin: 01/07/24 22:51 Dose: 100 mg Hydroxyzine HCl (Hydroxyzine Hcl 25 Mg Tablet) 25 mg PO Q6H PRN PRN Reason: Anxiety Lorazepam (Lorazepam 0.5 Mg Tablet) 0.5 mg PO BID PRN PRN Reason: Anxiety Last Admin: 01/08/24 08:59 Dose: 0.5 mg Magnesium Hydroxide (Milk Of Magnesia 30 Ml Oral.Susp) 30 ml PO DAILY PRN PRN Reason: Constipation Methadone HCl (Methadone Hcl 20 Mg/2 Ml Oral.Conc) 75 mg PO DAILY [facility] Last Admin: 01/08/24 08:29 Dose: 75 mg Nicotine (Nicotine 21 Mg Patch.Td24) 21 mg TRANSDERMA DAILY PRN PRN Reason: Nicotine Cravings Nicotine (Nicotine 21 Mg Patch.Td24) 21 mg TRANSDERMA DAILY [facility] Last Admin: 01/08/24 08:59 Dose: 21 mg Nicotine Polacrilex (Nicotine Polacrilex Lozenge 4 Mg Lozenge) 4 mg BUCCAL Q2H PRN PRN Reason: Nicotine Cravings Last Admin: 01/08/24 10:20 Dose: 4 mg Nicotine Polacrilex (Nicotine Polacrilex 2 Mg Gum) 4 mg BUCCAL Q2H PRN PRN Reason: Nicotine Cravings Non-Formulary Medication (Atomoxetine) 25 mg PO DAILY [facility] Trazodone HCl (Trazodone Hcl 50 Mg Tablet) 50 mg PO BEDTIME MRX1 PRN PRN Reason: Insomnia Last Admin: 01/07/24 22:52 Dose: 50 mg Allergies Allergies Allergy/AdvReac Type Severity Reaction Status Date / Time Penicillins [PENICILLINS] Allergy Unknown Hives Verified 01/04/24 11:54 haloperidol AdvReac Severe Anaphylaxis Verified 01/04/24 11:54 Assessment & Plan Assessment & Plan (1) Cocaine use disorder: Status: Acute Code(s): F14.10 - Cocaine abuse, uncomplicated (2) Opioid use disorder: Status: Acute Code(s): F11.90 - Opioid use, unspecified, uncomplicated (3) Mood disorder: Status: Acute Code(s): F39 - Unspecified mood [affective] disorder Plan 01/06: continue outpt regimen. add thorazine 50 mg PRN anxiety or AH. increase prozac to 60 mg daily for anxiety. re-refer to [facility]. 01/07: decrease thorazine PRNs to 25 mg each due to sedation at 50 mg each, otherwise continue current mgmt. stable. test for COVID tomorrow. if negative, may end seclusion. Reason for continued inpatient stay Substantial Risk for: harm to self, inability to function and rapid decompensation Time Spent With Patient Time: Total time managing care of this patient today __25__ minutes.
[2024-01-08] MEDS: hydrOXYzine HCL 25 MG TABLET PO ×2 (13:20→20:00)
[2024-01-08] MEDS: chlorproMAZINE HCl 25 MG TABLET PO ×2 (13:20→18:34)
[2024-01-08] MEDS: Acetaminophen 325 MG TABLET 650 MG PO (17:45)
[2024-01-08] MEDS: Nicotine Polacrilex 2 MG GUM 4 MG BUCCAL (17:45)
[2024-01-08 20:20] VITALS: BP 124/69; PULSE 70; RESP 16; TEMP 36.7; O2SAT 97
[2024-01-08] MEDS: traZODone HCL 50 MG TABLET PO (20:40)
[2024-01-08] MEDS: chlorproMAZINE HCl 100 MG TABLET 200 MG PO (20:40)
[2024-01-08] MEDS: hydrOXYzine HCL 50 MG TABLET 100 MG PO (20:40)
[2024-01-09] MEDS: methADONE HCl 20 MG/2 ML ORAL.CONC 75 MG PO (08:13)
[2024-01-09] MEDS: FLUoxetine HCl 20 MG CAPSULE 60 MG PO (09:33)
[2024-01-09] MEDS: Gabapentin 300 MG CAPSULE PO ×2 (09:33→21:58)
[2024-01-09] MEDS: LORazepam 0.5 MG TABLET PO ×2 (09:33→18:10)
[2024-01-09] MEDS: ARIPiprazole 20 MG TABLET PO (09:34)
[2024-01-09] MEDS: Nicotine 21 MG PATCH.TD24 TRANSDERMA (09:34)
[2024-01-09] MEDS: Nicotine Polacrilex Lozenge 4 MG LOZENGE BUCCAL ×4 (09:50→21:59)
[2024-01-09 10:38] VITALS: BP 117/65; PULSE 94; RESP 16; TEMP 36.7; O2SAT 99
[2024-01-09 10:46] LABS: COVID-19 Test Negative (Negative); IDNOW Serial# 152EDE1D
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
[2024-01-09] MEDS: chlorproMAZINE HCl 25 MG TABLET PO ×2 (11:47→18:59)
[2024-01-09 12:32] VITALS: BMI 41.1
--- NOTE | 2024-01-09 14:32 | HO.PSYCHPN ---
Subjective Subjective Date of Service: 01/09/24 Reason For Visit: SI Interim History: COVID NEG this morning so may come out of isolation. appears reasonably well. denies safety concerns. interested in return to [facility]. per staff, high anxiety. taking meals and meds. slept about 10 hours. asking for cepacol emily for sore throat. [facility] may or may not have a bed for her tomorrow. Mental Status Exam Mental Status Exam Narrative: Pt is alert and oriented; behavior is cooperative and calm; dressed in casual attire; mood is described as good. eye contact appropriate; Speech is normal rate, volume and not pressured; thought process is organized and goal directed; Thought content is on tx. no SI/SIBI/HI/AVH. Diagnostics Vital Signs (24Hr): Vital Signs - 24 hr 01/08/24 20:20 01/09/24 10:38 Temperature 98.0 F 98.1 F Pulse Rate 70 94 Respiratory Rate 16 16 Blood Pressure 124/69 117/65 Pulse Oximetry 97 99 Oxygen Delivery Method Room Air Room Air BMI result Body Mass Index 41.1 Labs 01/04/24 12:16 01/04/24 12:16 Labs: Laboratory Results - last 48 hr 01/09/24 10:11 COVID-19 (LUX) Negative COVID-19 Clin Com See Note Imaging Radiology Impressions: ITS Impressions Chest X-Ray 01/04/24 15:18 IMPRESSION: Lungs have a normal appearance. No radiographic evidence of pneumonia. Medications Medications Current Medications Acetaminophen (Acetaminophen 325 Mg Tablet) 650 mg PO Q6H PRN PRN Reason: Headache/Pain Mild Scale (1-3) Last Admin: 01/08/24 17:45 Dose: 650 mg Al Hydroxide/Mg Hydroxide (Magnesium Hydrox/Alum Hydrox 30 Ml Oral.Susp) 30 ml PO Q6H PRN PRN Reason: Heartburn/Nausea Aripiprazole (Aripiprazole 20 Mg Tablet) 20 mg PO DAILY [facility] Last Admin: 01/09/24 09:34 Dose: 20 mg Benzocaine (Throat Lozenge, Medicated Lozenge) 1 lozenge MUCOUS MEM Q1H PRN PRN Reason: Sore Throat Chlorpromazine HCl (Chlorpromazine Hcl 100 Mg Tablet) 200 mg PO BEDTIME [facility] Last Admin: 01/08/24 20:40 Dose: 200 mg Chlorpromazine HCl (Chlorpromazine Hcl 25 Mg Tablet) 25 mg PO Q4H PRN PRN Reason: severe anxiety/AH Last Admin: 01/09/24 11:47 Dose: 25 mg Fluoxetine HCl (Fluoxetine Hcl 20 Mg Capsule) 60 mg PO DAILY [facility] Last Admin: 01/09/24 09:33 Dose: 60 mg Gabapentin (Gabapentin 300 Mg Capsule) 300 mg PO BID [facility] Last Admin: 01/09/24 09:33 Dose: 300 mg Hydroxyzine HCl (Hydroxyzine Hcl 50 Mg Tablet) 100 mg PO BEDTIME PRN PRN Reason: insomnia Last Admin: 01/08/24 20:40 Dose: 100 mg Hydroxyzine HCl (Hydroxyzine Hcl 25 Mg Tablet) 25 mg PO Q6H PRN PRN Reason: Anxiety Last Admin: 01/08/24 20:00 Dose: 25 mg Lorazepam (Lorazepam 0.5 Mg Tablet) 0.5 mg PO BID PRN PRN Reason: Anxiety Last Admin: 01/09/24 09:33 Dose: 0.5 mg Magnesium Hydroxide (Milk Of Magnesia 30 Ml Oral.Susp) 30 ml PO DAILY PRN PRN Reason: Constipation Methadone HCl (Methadone Hcl 20 Mg/2 Ml Oral.Conc) 75 mg PO DAILY [facility] Last Admin: 01/09/24 08:13 Dose: 75 mg Nicotine (Nicotine 21 Mg Patch.Td24) 21 mg TRANSDERMA DAILY PRN PRN Reason: Nicotine Cravings Nicotine (Nicotine 21 Mg Patch.Td24) 21 mg TRANSDERMA DAILY [facility] Last Admin: 01/09/24 09:34 Dose: 21 mg Nicotine Polacrilex (Nicotine Polacrilex Lozenge 4 Mg Lozenge) 4 mg BUCCAL Q2H PRN PRN Reason: Nicotine Cravings Last Admin: 01/09/24 11:46 Dose: 4 mg Nicotine Polacrilex (Nicotine Polacrilex 2 Mg Gum) 4 mg BUCCAL Q2H PRN PRN Reason: Nicotine Cravings Last Admin: 01/08/24 17:45 Dose: 4 mg Non-Formulary Medication (Atomoxetine) 25 mg PO DAILY [facility] Trazodone HCl (Trazodone Hcl 50 Mg Tablet) 50 mg PO BEDTIME MRX1 PRN PRN Reason: Insomnia Last Admin: 01/08/24 20:40 Dose: 50 mg Allergies Allergies Allergy/AdvReac Type Severity Reaction Status Date / Time Penicillins [PENICILLINS] Allergy Unknown Hives Verified 01/04/24 11:54 haloperidol AdvReac Severe Anaphylaxis Verified 01/04/24 11:54 Assessment & Plan Assessment & Plan (1) Cocaine use disorder: Status: Acute Code(s): F14.10 - Cocaine abuse, uncomplicated (2) Opioid use disorder: Status: Acute Code(s): F11.90 - Opioid use, unspecified, uncomplicated (3) Mood disorder: Status: Acute Code(s): F39 - Unspecified mood [affective] disorder Plan 01/06: continue outpt regimen. add thorazine 50 mg PRN anxiety or AH. increase prozac to 60 mg daily for anxiety. re-refer to [facility]. 01/07: decrease thorazine PRNs to 25 mg each due to sedation at 50 mg each, otherwise continue current mgmt. stable. test for COVID tomorrow. if negative, may end seclusion. 01/08: COVID NEG, seclusion ended. transfer back to [facility] tomorrow or saturday. continue current mgmt otherwise. Reason for continued inpatient stay Substantial Risk for: inability to function and rapid decompensation Time Spent With Patient Time: Total time managing care of this patient today ____ minutes.
--- NOTE | 2024-01-09 18:39 | PC.NURSE ---
Pts father brought a large bag of clothing and belongs from pts previous program. Pt said the previous program was going to throw them out if not picked up. Belongings inventoried, but NOT searched and secured in the belongings closet. Pt was informed that she can only get them upon discharge , pt agreed.
[2024-01-09 20:01] VITALS: BP 117/69; PULSE 84; RESP 16; TEMP 36.8; O2SAT 97
[2024-01-09] MEDS: chlorproMAZINE HCl 100 MG TABLET 200 MG PO (21:58)
[2024-01-09] MEDS: Acetaminophen 325 MG TABLET 650 MG PO (21:58)
[2024-01-09] MEDS: hydrOXYzine HCL 50 MG TABLET 100 MG PO (21:59)
[2024-01-09] MEDS: traZODone HCL 50 MG TABLET PO (21:59)
[2024-01-10 07:20] VITALS: BP 96/55; PULSE 84; RESP 18; TEMP 36.8; O2SAT 96
[2024-01-10] MEDS: methADONE HCl 20 MG/2 ML ORAL.CONC 75 MG PO (08:04)
[2024-01-10] MEDS: FLUoxetine HCl 20 MG CAPSULE 60 MG PO (08:35)
[2024-01-10] MEDS: Gabapentin 300 MG CAPSULE PO (08:35)
[2024-01-10] MEDS: LORazepam 0.5 MG TABLET PO (08:36)
[2024-01-10] MEDS: ARIPiprazole 20 MG TABLET PO (08:36)
[2024-01-10] MEDS: chlorproMAZINE HCl 25 MG TABLET PO (09:43)
== END 2024-01-10 10:10 | DRG 751 ==
LOC: HO.ED 17:05 → HO.PADLT16 01-07 13:02
PROVIDERS: Nurse Practitioner Family; Admitting Provider Psychiatry & Neurology Psychiatry; Emergency Provider Emergency Medicine; Visit Provider Psychiatry & Neurology Psychiatry
DX: F33.1 Major depressive disorder, recurrent, moderate (principal); U07.1 COVID-19; R45.851 Suicidal ideations; F14.10 Cocaine abuse, uncomplicated; F11.20 Opioid dependence, uncomplicated; F17.210 Nicotine dependence, cigarettes, uncomplicated; Z59.01 Sheltered homelessness; Z71.6 Tobacco abuse counseling; Z79.899 Other long term (current) drug therapy
CPT/HCPCS: 71046; 80053; 80307; 81001; 81025; 85025; 87635; 93005; 99285; S9485

== ENCOUNTER → 2024-01-07 12:52 | Outpatient (BNV) | payer OTHER, SELFPAY | PROVIDERS: Admitting Provider Psychiatry & Neurology Psychiatry; Emergency Provider Emergency Medicine; Visit Provider Psychiatry & Neurology Psychiatry | DX: F39 Unspecified mood [affective] disorder (principal); F14.10 Cocaine abuse, uncomplicated; F11.90 Opioid use, unspecified, uncomplicated | CPT/HCPCS: 99231; 99232; 99233; 99239 ==

== ENCOUNTER 2024-08-15 13:21 | Emergency (ER) | payer OTHER, SELFPAY ==
--- NOTE | ~2024-08-15 | XR_ITS ---
CLINICAL HISTORY: sob Single view of the chest. COMPARISON: XR chest dated 01/04/24 at 15:17 EDT FINDINGS: Normal heart and mediastinal contours. No consolidation. No pleural effusion or pneumothorax. No fracture identified. IMPRESSION: 1. No consolidation. This document has been electronically signed by: Edward Mackey MD on 08/15/2024 18:26:50
[2024-08-15 13:30] VITALS: BP 136/94; BP 138/90; PULSE 75; PULSE 94; RESP 18; TEMP 36.6; O2SAT 100; O2SAT 98; BMI 39.4
--- NOTE | 2024-08-15 15:19 | ED.GENADULT ---
HPI - General Adult General Chief complaint: General Medical Stated complaint: INTERMITTENT CONFUSION X 1 WK,?INFECTION Time Seen by Provider: 08/15/24 16:31 Source: patient Limitations: no limitations History of Present Illness ED Provider: Abby Soler PA-C HPI narrative: 28-year-old female with a history of polysubstance abuse, alcohol abuse, depression, asthma, morbid obesity who presents with multiple complaints. Patient states people around her have been telling her that she is ?off?, that she seems confused at times. She has had symptoms for about a week. Associated generalized malaise, myalgias, cough and cold symptoms, subjective fevers. Patient admits to using both heroin and cocaine prior to arrival. Denies SI, HI at this time. Related Data Home Medications ?Medication ?Instructions ?Recorded ?Confirmed methadone 10 mg/mL oral 75 mg PO DAILY 10/30/23 01/04/24 concentrate (Methadone Intensol) Previous Rx's ?Medication ?Instructions ?Recorded aripiprazole 20 mg tablet (Abilify) 20 mg PO DAILY 30 days #30 tabs 01/09/24 atomoxetine 25 mg capsule 25 mg PO DAILY 30 days #30 caps 01/09/24 chlorpromazine 10 mg tablet 30 mg (3 x 10 mg) PO TID PRN 01/09/24 anxiety 30 days #90 tabs chlorpromazine 100 mg tablet 200 mg (2 x 100 mg) PO BEDTIME 30 01/09/24 days #60 tabs fluoxetine 20 mg capsule 60 mg (3 x 20 mg) PO DAILY 30 days 01/09/24 #90 caps gabapentin 300 mg capsule 300 mg PO BID 30 days #60 caps 01/09/24 lorazepam 0.5 mg tablet 0.5 mg PO BID PRN Anxiety 30 days 01/09/24 #14 tabs naloxone 4 mg/actuation nasal 4 mg intranasal Q2M PRN opioid 01/09/24 spray (Narcan) overdose 1 day #2 ea nicotine (polacrilex) 4 mg buccal 4 mg buccal Q2H PRN Nicotine 01/09/24 lozenge Cravings 30 days #108 ea nicotine 21 mg/24 hr daily 21 mg transdermal DAILY PRN 01/09/24 transdermal patch Nicotine Cravings 28 days #28 ea Allergies Allergy/AdvReac Type Severity Reaction Status Date / Time Penicillins [PENICILLINS] Allergy Unknown Hives Verified 08/15/24 13:32 haloperidol AdvReac Severe Anaphylaxis Verified 08/15/24 13:32 Review of Systems Review of Systems: Yes all other systems are reviewed and are negative Constitutional: Constitutional: Denies fatigue, Reports fever(s) and Reports malaise Cardiovascular: Cardiovascular: Denies chest pain and Denies dyspnea Respiratory: Respiratory: Reports cough and Denies dyspnea Gastrointestinal: Gastrointestinal: Denies abdominal pain, Denies diarrhea, Denies nausea and Denies vomiting Genitourinary: Genitourinary: Denies dysuria Musculoskeletal: Musculoskeletal: Reports myalgias Endocrine: Endocrine: Denies fatigue [facility] Past Medical History Attestation statement: The following information was validated with the patient. Medical History Substance induced mood disorder Drug-induced psychotic disorder Asthma Social History Social History Household Members: None Household Members Other:: Homeless Housing: Homeless Housing Other:: Homeless living w/ cousins Do you presently have visiting nurse or other home services: No Alcohol intake: current Alcohol intake frequency: a few times a week Comment: bed 1 Patient Tobacco Use Status: Current everyday Tobacco user Tobacco use type: Cigarette Cigarette Packs Per Day: 0 Cigarettes Per Day: 8 Years Smoked: 10 e-Cigarette/Vaping Use: Currently Using Second Hand Smoke Exposure: No Substance Use Type: Crack/Cocaine, Heroin, IV Drugs, Marijuana and Opiates Advance Directives: No Advance Directives Information Provided: Yes Advance Directives Date on File: 03/05/22 Do you have a plan to hurt others: No Plan service: No Sexual orientation: Did not discuss Physical Exam ED Vital Signs: Vital Signs - 24 hr 08/15/24 13:30 08/15/24 16:18 08/15/24 18:21 Temperature 97.8 F 97.6 F 98.0 F Pulse Rate 75 67 75 Respiratory Rate 18 20 20 Blood Pressure 136/94 H 117/72 119/75 Pulse Oximetry 98 97 96 Oxygen Delivery Method Room Air Room Air Room Air BMI result Body Mass Index 39.4 Const Other: Alert, disheveled, appears older than stated age Orientation/consciousness: patient oriented x3 Resp Effort & Inspection: normal respiratory effort Cardio Other: Normal peripheral perfusion Skin Other: Warm dry no rash Neuro General: patient oriented x3, gait normal, no focal motor deficits and CN's II-XI intact bilaterally Psych Other: Cooperative Medical Decision Making Medical Decision Making MDM Narrative: 28-year-old female with a history of polysubstance abuse, alcohol abuse, depression, asthma, morbid obesity who presents with multiple complaints. Patient states people around her have been telling her that she is ?off?, that she seems confused at times. She has had symptoms for about a week. Associated generalized malaise, myalgias, cough and cold symptoms, subjective fevers. Patient admits to using both heroin and cocaine prior to arrival. Denies SI, HI at this time. Problem: Psychiatric illness, polysubstance abuse History: Per patient I have considered the following differential diagnoses: Decompensated psychiatric illness, drug/alcohol intoxication, UTI, viral syndrome, pneumonia Plan: Patient here with a very nonspecific symptoms of confusion, she is not altered, she is alert and oriented, she also has some potential infectious symptoms. We will be screening basic labs, drug screen, urinalysis chest x-ray viral panel. I have independently reviewed the following tests: Labs: No leukocytosis, not anemic, no electrolyte abnormality, not , urine not infected, drug screen positive for opiates, methadone, fentanyl, cocaine Chest x-ray, FINDINGS: Normal heart and mediastinal contours. No consolidation. No pleural effusion or pneumothorax. No fracture identified. IMPRESSION: 1. No consolidation. Lab Data 08/15/24 16:56 08/15/24 16:56 Labs: Lab Results 08/15/24 08/15/24 Range/Units 16:44 16:56 WBC 6.2 (4.8-10.8) X10*3/uL RBC 4.26 (4.20-5.50) X10*6/uL Hgb 10.1 L (12.0-16.0) g/dl Hct 31.5 L (37.0-47.0) % MCV 73.9 L (80.0-98.0) fL MCH 23.7 L (27.0-33.0) pg MCHC 32.1 (31.0-35.0) g/dl RDW 15.3 (11.0-16.0) % Plt Count 321 D (160-400) X10*3/uL MPV 10.8 (9.4-12.3) fL Immature Gran % (Auto) 0.5 H (0.0-0.4) % Neut % (Auto) 56.7 (45-73) % Lymph % (Auto) 29.0 (20-40) % [place] % (Auto) 10.3 (2-11) % Eos % (Auto) 2.7 (0-4) % Baso % (Auto) 0.8 (0-2) % Lymph # (Auto) 1.8 (1.2-4.9) X10*3/uL [place] # (Auto) 0.6 (0.1-1.2) X10*3/uL Eos # (Auto) 0.2 (0.0-0.4) X10*3/uL Baso # (Auto) 0.1 (0.0-0.2) X10*3/uL Abs Immat Gran (auto) 0.03 (0.00-0.03) X10*3/uL Absolute Neuts (auto) 3.5 (2.0-8.3) x10*3/uL Absolute Nucleated RBC 0.000 (0.0-0.012) X10*3/uL Nucleated RBC % (auto) 0.0 (0.0-0.2) /100WBC Sodium 139 (135-145) mmol/L Potassium 3.8 (3.3-5.1) mmol/L Chloride 109 H (96-108) mmol/L Carbon Dioxide 24 (22-29) mmol/L Anion Gap 10 L (12-20) BUN 5 L (9-16) mg/dL Creatinine 0.63 (0.5-1.4) mg/dL Estim Creat Clear Calc 153.4 Estimated GFR > 60 Random Glucose 105 (60-115) mg/dL Calcium 9.0 (8.4-10.2) mg/dL Magnesium 2.1 (1.6-2.6) mg/dL Total Bilirubin 0.3 (0.0-1.0) mg/dL AST 32 H (5-31) U/L ALT 22 (0-31) U/L Alkaline Phosphatase 122 H (39-117) U/L Total Protein 7.7 (6.5-8.0) g/dL Albumin 3.5 (3.5-5.0) g/dL Beta HCG, Quant < 2 mIU/mL Urine Color Yellow Urine Appearance Clear Urine pH 6.0 (5.0-9.0) Ur Specific [place] <= 1.005 (1.005-1.025) Urine Protein Negative (Neg-Trace) mg/dL Urine Glucose (UA) Negative (Negative) mg/dL Urine Ketones Negative (Negative) mg/dL Urine Blood Negative (Negative) Urine Nitrite Negative (Negative) Ur Leukocyte Esterase Small (1+) H (Negative) Urine RBC 0-2 (0-2) /HPF Urine WBC 6-10 H (0-5) /HPF Ur Squamous Epith Cells 0-2 (0-2) /HPF Urine Bacteria None Seen (None Seen) Hyaline Casts 0-2 (0-2) /LPF Salicylates < 5.0 L (15-30) mg/dL Urine Opiates Screen POSITIVE H (Not Detect) Ur Buprenorphine Scrn Not Detected (Not Detect) ng/mL Ur Oxycodone Screen Not Detected (Not Detect) ng/mL Urine Methadone Screen Positive H (Not Detect) ng/mL Urine Fentanyl Screen POSITIVE H (Not Detect) Acetaminophen 3 (<30) mcg/mL Ur Barbiturates Screen Not Detected (Not Detect) Ur Phencyclidine Scrn Not Detected (Not Detect) Ur Amphetamines Screen Not Detected (Not Detect) U Benzodiazepines Scrn Not Detected (Not Detect) Urine Cocaine Screen POSITIVE H (Not Detect) U Marijuana (THC) Screen Not Detected (Not Detect) Ethyl Alcohol < 10 mg/dL Influenza Type A (PCR) NEGATIVE (Negative) Influenza Type B (PCR) NEGATIVE (Negative) RSV RNA Qual (PCR) NEGATIVE (Negative) SARS-CoV-2 RNA (RT-PCR) NEGATIVE (Negative) Discharge Plan Discharge Clinical Impression: Confusion, Polysubstance abuse, Malaise Patient Disposition: Home, Self-Care Instructions: Polysubstance Abuse (ED), Fatigue (ED) Additional Instructions: Overall all the screening labs were normal. The viral panel was negative, you do not have a urinary tract infection, the chest x-ray is clear. Your drug toxicology is positive for numerous substances as you know. I do believe your polysubstance abuse is the cause of your generalized feeling of unwellness and confusion. Prescriptions: No Action methadone [Methadone Intensol] 10 mg/mL Concentrate 75 mg PO DAILY Patient Comments: Last dose verified from [facility] administration sheet chlorpromazine 10 mg tablet 30 mg PO TID PRN (Reason: anxiety) 30 Days Qty: 90 0RF fluoxetine 20 mg Capsule 60 mg PO DAILY 30 Days Qty: 90 0RF chlorpromazine 100 mg Tablet 200 mg PO BEDTIME 30 Days Qty: 60 0RF lorazepam 0.5 mg Tablet 0.5 mg PO BID PRN (Reason: Anxiety) 30 Days Qty: 14 0RF nicotine 21 mg/24 hr patch 24 hour 21 mg transdermal DAILY PRN (Reason: Nicotine Cravings) 28 Days Qty: 28 0RF gabapentin 300 mg Capsule 300 mg PO BID 30 Days Qty: 60 0RF aripiprazole [Abilify] 20 mg Tablet 20 mg PO DAILY 30 Days Qty: 30 0RF atomoxetine 25 mg capsule 25 mg PO DAILY 30 Days Qty: 30 0RF nicotine (polacrilex) 4 mg Lozenge 4 mg buccal Q2H PRN (Reason: Nicotine Cravings) 30 Days Qty: 108 0RF naloxone [Narcan] 4 mg/actuation spray,non-aerosol 4 mg intranasal Q2M PRN (Reason: opioid overdose) 1 Days Qty: 2 0RF Rx Instructions: spray 1 dose into ONE nostril; alternate nostrils w each dose until help arrives Print Language: Sami
[2024-08-15 16:18] VITALS: BP 117/72; PULSE 67; RESP 20; TEMP 36.4; O2SAT 97
[2024-08-15 16:50] LABS: Appearance Urine Clear; Color Urine Yellow; Glucose Urine UA Negative (Negative); Leukocyte Esterase Urine Small (1+) (Negative); Nitrite Urine Negative (Negative); Specific Gravity - Urine <= 1.005 (1.005-1.025); UMIC TRIGGER UACC YES; Urine Blood Negative (Negative); Urine Ketones Negative (Negative); Urine Protein Negative (Neg-Trace)
[2024-08-15 16:52] LABS: Bacteria Urine None Seen (None Seen); Hyaline Casts Urine 0-2 /LPF (0-2); RBC Urine 0-2 /HPF (0-2); Squamous Epithelial Cell Urine 0-2 /HPF (0-2); UACC Culture Trigger YES
[2024-08-15 16:59] LABS: Amphetamine Screen Urine Not Detected (Not Detect); Barbiturates, Urine Not Detected (Not Detect); Benzodiazepines Screen Urine Not Detected (Not Detect); Buprenorphine Scr Not Detected (Not Detect); Cannabinoid Screen Urine Not Detected (Not Detect); Cocaine Screen Urine POSITIVE (Not Detect); Fentanyl, urine POSITIVE (Not Detect); Methadone Screen, Urine Positive (Not Detect); Opiate Screen Urine POSITIVE (Not Detect); Oxycodone Screen Urine Not Detected (Not Detect); Phencyclidine Screen Urine Not Detected (Not Detect)
[2024-08-15 17:00] LABS: MANUAL DIFF FLAG NO
[2024-08-15 17:02] LABS: Basophils Absolute Auto 0.1 X10*3/uL (0.0-0.2); Basophils Percent Auto 0.8 % (0-2); Eosinophils Absolute Auto 0.2 X10*3/uL (0.0-0.4); Eosinophils Percent Auto 2.7 % (0-4); Hematocrit 31.5 % (37.0-47.0); Hemoglobin 10.1 g/dl (12.0-16.0); Imm Gran Abs Auto 0.03 X10*3/uL (0.00-0.03); Imm Gran Pct Auto 0.5 % (0.0-0.4); Lymphocytes Absolute Auto 1.8 X10*3/uL (1.2-4.9); Mean Corpuscular HGB Conc 32.1 g/dl (31.0-35.0); Mean Corpuscular Hemoglobin 23.7 pg (27.0-33.0); Mean Corpuscular Volume 73.9 fL (80.0-98.0); Mean Platelet Volume 10.8 fL (9.4-12.3); Monocytes Absolute Auto 0.6 X10*3/uL (0.1-1.2); Monocytes Percent Auto 10.3 % (2-11); Neutrophils Absolute Auto 3.5 x10*3/uL (2.0-8.3); Neutrophils Percent Auto 56.7 % (45-73); Platelet Count 321 X10*3/uL (160-400); Red Blood Count 4.26 X10*6/uL (4.20-5.50); Red Cell Distribution Width 15.3 % (11.0-16.0); White Blood Count 6.2 X10*3/uL (4.8-10.8)
[2024-08-15 17:21] LABS: Acetaminophen LAB 3 mcg/mL (<30); Salicylate < 5.0 mg/dL (15-30)
--- NOTE | 2024-08-15 17:22 | PC.NURSE ---
provider at bedside for US guided IV, labs/urine obtained and sent. patient ambulated with steady gait to the bathroom.
[2024-08-15 17:27] LABS: Alanine Aminotransferase 22 U/L (0-31); Albumin Level 3.5 g/dL (3.5-5.0); Alkaline Phosphatase 122 U/L (39-117); Anion Gap 10 (12-20); Aspartate Amino Transferase 32 U/L (5-31); Bilirubin Total 0.3 mg/dL (0.0-1.0); Blood Urea Nitrogen 5 mg/dL (9-16); Carbon Dioxide 24 mmol/L (22-29); Chloride 109 mmol/L (96-108); Creatinine Clr Calc Pharmacy 153.4; Estimated Glomerular Filt Rate > 60; Ethanol < 10 mg/dL; Glucose Random 105 mg/dL (60-115); HCG Quantitative < 2 mIU/mL; Magnesium 2.1 mg/dL (1.6-2.6); Potassium 3.8 mmol/L (3.3-5.1); Sodium 139 mmol/L (135-145); Total Protein 7.7 g/dL (6.5-8.0)
[2024-08-15 17:38] LABS: Influenza A PCR NEGATIVE (Negative); Influenza B PCR NEGATIVE (Negative); Resp Syncy Virus RNA Qual PCR NEGATIVE (Negative); SARS COV2 PCR INHOUSE NEGATIVE (Negative)
[2024-08-15 18:21] VITALS: BP 119/75; PULSE 75; RESP 20; TEMP 36.7; O2SAT 96
[2024-08-15 18:47] VITALS: BP 119/75; PULSE 75; RESP 20; TEMP 36.7; O2SAT 96
== END 2024-08-15 18:47 | disposition home or self-care (01) ==
PROVIDERS: Physician Assistant Medical; Emergency Provider Internal Medicine
DX: R41.0 Disorientation, unspecified (principal); R53.81 Other malaise; F11.10 Opioid abuse, uncomplicated; F14.10 Cocaine abuse, uncomplicated; R05.9 Cough, unspecified; R50.9 Fever, unspecified; R06.02 Shortness of breath; F17.210 Nicotine dependence, cigarettes, uncomplicated; Z03.818 Encounter for observation for suspected exposure to other biological agents ruled out; Z79.899 Other long term (current) drug therapy; Z51.81 Encounter for therapeutic drug level monitoring; Z71.51 Drug abuse counseling and surveillance of drug abuser
CPT/HCPCS: 0241U; 36415; 51701; 71045; 80053; 80143; 80179; 80307; 81001; 83735; 84702; 85025; 87086; 99283

== ENCOUNTER → 2024-08-15 16:34 | Outpatient (BNV) | payer OTHER, SELFPAY | PROVIDERS: Emergency Provider Internal Medicine; Visit Provider Radiology Diagnostic Radiology | DX: R06.02 Shortness of breath (principal) | CPT/HCPCS: 71045 ==

== ENCOUNTER 2024-08-15 19:11 | Inpatient (IN) | payer OTHER, SELFPAY ==
[2024-08-15 19:27] VITALS: BP 116/79; PULSE 104; RESP 16; TEMP 36.8; O2SAT 95; BMI 39.0
--- NOTE | 2024-08-15 19:27 | ED_ITS ---
HPI - General Adult General Chief complaint: Psychiatric Symptoms Stated complaint: not feeling well,wants to hurt self/just d/c Time Seen by Provider: 08/15/24 19:59 History of Present Illness ED Provider: Aguila DONALDSON narrative: The patient is a 28-year-old female presents to the emergency room after recently being discharged. She presents saying that she feels that she has been poisoned and that wherever she goes there is some kind of poison in the events t hat provide the air for where she is. She was brought into the psychiatric area of our emergency room a use the public phone to call 911. When the dispatcher told the patient that they wanted to speak with the nurse the patient became extremely agitated it started yelling and kicking things. She needed to be restrained at that point. Related Data Home Medications ?Medication ?Instructions ?Recorded ?Confirmed methadone 10 mg/mL oral 128 mg PO DAILY 10/30/23 08/16/24 concentrate (Methadone Intensol) benztropine 0.5 mg tablet 0.5 mg PO DAILY 08/16/24 08/16/24 gabapentin 300 mg capsule 300 mg PO TID 08/16/24 08/16/24 Previous Rx's ?Medication ?Instructions ?Recorded nicotine (polacrilex) 4 mg buccal 4 mg buccal Q2H PRN Nicotine 01/09/24 lozenge Cravings 30 days #108 ea nicotine 21 mg/24 hr daily 21 mg transdermal DAILY PRN 01/09/24 transdermal patch Nicotine Cravings 28 days #28 ea Allergies Allergy/AdvReac Type Severity Reaction Status Date / Time Penicillins [PENICILLINS] Allergy Unknown Hives Verified 08/15/24 19:31 haloperidol AdvReac Severe Anaphylaxis Verified 08/15/24 19:31 Review of Systems Review of Systems: Yes all other systems are reviewed and are negative PMFSH Past Medical History Medical History Substance induced mood disorder Drug-induced psychotic disorder Asthma Social History Social History Household Members: None Household Members Other:: Homeless Housing: Homeless Housing Other:: Homeless living w/ cousins Do you presently have visiting nurse or other home services: No Alcohol intake: current Alcohol intake frequency: a few times a week Comment: bed 1 Patient Tobacco Use Status: Current everyday Tobacco user Tobacco use type: Cigarette Cigarette Packs Per Day: 0 Cigarettes Per Day: 8 Years Smoked: 10 e-Cigarette/Vaping Use: Currently Using Second Hand Smoke Exposure: No Substance Use Type: Crack/Cocaine, Heroin, IV Drugs, Marijuana and Opiates Advance Directives: No Advance Directives Date on File: 03/05/22 Do you have a plan to hurt others: No Plan service: No Sexual orientation: Did not discuss Physical Exam ED Vital Signs: Vital Signs - 24 hr 08/16/24 10:12 08/16/24 15:15 08/16/24 23:43 Temperature 97.6 F 97.4 F 98.4 F Pulse Rate 92 62 68 Respiratory Rate 18 14 16 Blood Pressure 117/88 102/54 L 139/80 Pulse Oximetry 96 96 99 Oxygen Delivery Method Room Air Room Air Room Air BMI result Body Mass Index 39.0 Const Other: The patient was initially quite agitated and seemed to be perseverating about being poisoned. HENMT Other: Face is symmetrical, mucous membranes moist. Eyes General: appearance normal, both eyes and all related structures Conjunctivae: conjunctivae normal Pupils: Equal, round and reactive pupils present EOM: EOMs intact bilaterally Neck Neck: Yes full ROM Resp Effort & Inspection: normal respiratory effort Auscultation: clear to auscultation bilaterally Cardio Rate: regular rate Rhythm: regular rhythm Heart sounds: S1 normal heart sound present and S2 normal heart sound present GI Other: Abdomen is soft and nontender Skin Other: Skin is dry and unremarkable Neuro Other: The patient was awake and alert. The patient seemed to be agitated and paranoid. Cranial nerves 2-12 are intact. The patient moves all 4 extremities with normal strength and sensation. She seemed to have normal coordination. She did not seem to have any focal neurological deficits. Cranial nerves: Yes Equal, round and reactive pupils present Extrem Other: No calf swelling or tenderness. No asymmetry. Psych Other: The patient was agitated and expressing what seemed to be paranoid thoughts about being poisoned. She denied suicidality. She denied taking anything in overdose or doing anything else to harm herself. Course Course Course Narrative: Medical screening exam performed. Please refer to detailed history, exam, evaluation, and management by primary provider. Patient was just seen here earlier. Returning now for paranoia; feeling that she is going to be poisoned, or people are after her. Reporting currently homeless. + SI, no specific plan. I want to give up . General feeling unwell. Polysubstance use prior to arrival. No evidence of withdrawal. Airway patent. Reevaluation(s) Reevaluation #1: 08/17/24 7am observation continued, VS stable, no acute events overnight, ddx bed search in place [facility] Medications Administered Generic Name Dose Route Start Last Admin Trade Name Freq PRN Reason Stop Dose Admin Gabapentin 300 mg 08/16/24 23:00 08/16/24 23:30 Gabapentin 300 Mg Capsule PO 300 mg TID JOHN Administration Discontinued Medications Generic Name Dose Route Start Last Admin Trade Name Freq PRN Reason Stop Dose Admin Diphenhydramine HCl 50 mg 08/15/24 19:59 08/15/24 21:00 Diphenhydramine Hcl 50 Mg/Ml Vial IM 08/15/24 20:00 50 mg ONCE ONE Administration Lorazepam 2 mg 08/15/24 19:59 08/15/24 21:00 Lorazepam 2 Mg/Ml Vial IM 08/15/24 20:00 2 mg STAT STA Administration Methadone HCl 128 mg 08/16/24 09:18 08/16/24 10:05 Methadone Hcl 20 Mg/2 Ml Oral.Conc PO 08/16/24 09:19 128 mg ONCE ONE Administration Olanzapine 10 mg 08/15/24 19:59 08/15/24 21:04 Olanzapine 10 Mg Vial IM 08/15/24 20:00 10 mg ONCE ONE Administration Medical Decision Making Medical Decision Making [facility] Narrative: The patient is a 28-year-old female who was homeless and who has significant substance use problems who had just been discharged from the emergency room then returned with increasing agitation and paranoia. She required sedation because of her degree of agitation. She was in 4 point restraints briefly. I spoke to her again after she had recovered from her sedation. She denied doing anything to harm herself. The patient had had a medical workup just a few hours prior to her presentation. I do not think she requires repeat phlebotomy. I think she is medically stable for evaluation by the care team. The patient will be placed in physician observation. 08:00 patient has slept well last night , stable vitals pending care team evaluation and disposition Lab Data Labs: Lab Results 08/16/24 Range/Units 08:33 Urine Opiates Screen POSITIVE H (Not Detect) Ur Buprenorphine Scrn Not Detected (Not Detect) ng/mL Ur Oxycodone Screen Not Detected (Not Detect) ng/mL Urine Methadone Screen Positive H (Not Detect) ng/mL Urine Fentanyl Screen POSITIVE H (Not Detect) Ur Barbiturates Screen Not Detected (Not Detect) Ur Phencyclidine Scrn Not Detected (Not Detect) Ur Amphetamines Screen Not Detected (Not Detect) U Benzodiazepines Scrn Not Detected (Not Detect) Urine Cocaine Screen POSITIVE H (Not Detect) U Marijuana (THC) Screen Not Detected (Not Detect) Discharge Plan Discharge Clinical Impression: Agitation, Paranoia Patient Disposition: Still a Patient Prescriptions: No Action methadone [Methadone Intensol] 10 mg/mL Concentrate 128 mg PO DAILY Patient Comments: Last dose verified from [facility] administration sheet Rx Instructions: [facility] [phone] nicotine 21 mg/24 hr patch 24 hour 21 mg transdermal DAILY PRN (Reason: Nicotine Cravings) 28 Days Qty: 28 0RF nicotine (polacrilex) 4 mg Lozenge 4 mg buccal Q2H PRN (Reason: Nicotine Cravings) 30 Days Qty: 108 0RF benztropine 0.5 mg tablet 0.5 mg PO DAILY gabapentin 300 mg capsule 300 mg PO TID Interventions: [place]-Suicide Risk Severity Scale Last Done: 08/17/24 06:28 Print Language: Indian
[2024-08-15] MEDS: LORazepam 2 MG/ML VIAL IM (21:00)
[2024-08-15] MEDS: diphenhydrAMINE HCL 50 MG/ML VIAL IM (21:00)
[2024-08-15] MEDS: OLANZapine 10 MG VIAL IM (21:04)
[2024-08-16 06:07] VITALS: RESP 16
[2024-08-16 08:49] LABS: Amphetamine Screen Urine Not Detected (Not Detect); Barbiturates, Urine Not Detected (Not Detect); Benzodiazepines Screen Urine Not Detected (Not Detect); Buprenorphine Scr Not Detected (Not Detect); Cannabinoid Screen Urine Not Detected (Not Detect); Cocaine Screen Urine POSITIVE (Not Detect); Fentanyl, urine POSITIVE (Not Detect); Methadone Screen, Urine Positive (Not Detect); Opiate Screen Urine POSITIVE (Not Detect); Oxycodone Screen Urine Not Detected (Not Detect); Phencyclidine Screen Urine Not Detected (Not Detect)
--- NOTE | 2024-08-16 10:04 | HE.PHANOTE ---
Methadone RN sent up methadone verifcation form. Patient last received methadone on 08/15/24 @0711. Methadone dose is 128 mg and she receives at [facility] [phone]
[2024-08-16] MEDS: methADONE HCl 20 MG/2 ML ORAL.CONC 128 MG PO (10:05)
[2024-08-16 10:12] VITALS: BP 117/88; PULSE 92; RESP 18; TEMP 36.4; O2SAT 96
[2024-08-16 15:15] VITALS: BP 102/54; PULSE 62; RESP 14; TEMP 36.3; O2SAT 96
[2024-08-16] MEDS: Gabapentin 300 MG CAPSULE PO (23:30)
[2024-08-16 23:43] VITALS: BP 139/80; PULSE 68; RESP 16; TEMP 36.9; O2SAT 99
--- NOTE | 2024-08-17 | ECG_ITS ---
Test Reason : check qtc Blood Pressure : */* mmHG Vent. Rate : 67 BPM Atrial Rate : 67 BPM P-R Int : 148 ms QRS Dur : 88 ms QT Int : 420 ms P-R-T Axes : 22 58 38 degrees QTcB Int : 443 ms Normal sinus rhythm Nonspecific T wave abnormality Abnormal ECG When compared with ECG of 04-Jan-2024 12:00, Vent. rate has decreased by 41 bpm Referred By: Mono Sheehan Electronically Signed By: PRESLEY GOLDEN
--- NOTE | 2024-08-17 06:29 | PC.NURSE ---
Patient slept through the night, no distress observed/reported, meds and meals compliant, 15 minutes safety check, no behavior and safety concerns, disposition per care team is section-12 dual diagnosis bed search, will continue to monitor
--- NOTE | 2024-08-17 07:17 | PC.NURSE ---
Patient had labs done on 08/15
--- NOTE | 2024-08-17 07:17 | PC.NURSE ---
Assumed care of patient at 0645, patient appears to be in no apparent distress this am, sleeping, respirations even and unlabored. Continue plan of care for dual dx bedsearch
[2024-08-17] MEDS: methADONE HCl 20 MG/2 ML ORAL.CONC 128 MG PO (08:18)
[2024-08-17] MEDS: Benztropine Mesylate 0.5 MG TABLET PO (08:18)
[2024-08-17] MEDS: Gabapentin 300 MG CAPSULE PO ×2 (08:18→15:29)
--- NOTE | 2024-08-17 11:24 | PHA.MEDREC ---
Pharmacy Consult ? Medication Reconciliation Pharmacy has reviewed the medication reconciliation done by nursing. Per nurse Patient is not taking
--- NOTE | 2024-08-17 11:26 | PHA.MEDREC ---
Addendum entered by Reinaldo Hardin 08/17/24 11:58: reviewed Original Note: Pharmacy Consult ? Medication Reconciliation Pharmacy has reviewed the medication reconciliation done by nursing. Patient states she is not compliant with Clindamycin 150 mg, Doxycycline Hcl 100 mg, Zofran and Tamaflu
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
[2024-08-17 15:00] VITALS: BP 118/55; PULSE 68; RESP 14; TEMP 36.8; O2SAT 97
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
[2024-08-17 18:04] VITALS: BMI 40.1
[2024-08-17] MEDS: chlorproMAZINE HCl 25 MG TABLET PO (18:55)
[2024-08-17] MEDS: ARIPiprazole 5 MG TABLET PO (18:55)
[2024-08-17 20:00] VITALS: BP 113/62; PULSE 65; RESP 18; TEMP 36.9; O2SAT 96
[2024-08-17] MEDS: traZODone HCL 50 MG TABLET PO (21:38)
[2024-08-17] MEDS: hydrOXYzine HCL 25 MG TABLET PO (21:38)
[2024-08-17] MEDS: chlorproMAZINE HCl 25 MG TABLET 50 MG PO (21:38)
[2024-08-18 08:08] VITALS: BP 121/66; PULSE 63; RESP 16; TEMP 36.8; O2SAT 97
[2024-08-18] MEDS: methADONE HCl 20 MG/2 ML ORAL.CONC 128 MG PO (08:23)
[2024-08-18] MEDS: ARIPiprazole 5 MG TABLET PO (08:47)
[2024-08-18] MEDS: Benztropine Mesylate 0.5 MG TABLET PO (08:47)
[2024-08-18] MEDS: Gabapentin 300 MG CAPSULE PO ×2 (08:47→20:45)
[2024-08-18] MEDS: Ibuprofen 600 MG TABLET PO (08:47)
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
--- NOTE | 2024-08-18 12:33 | P.CONHOSP_ITS ---
History of Present Illness Data of Consult Service Date: 08/18/24 Requesting physician: Mary Alice Barboza Primary Care Provider: Unknown Physician HPI Reason for consult: bilateral wrist abscess 28 year old female with a history of IVDA, OUD admitted to adult psychiatry with consult placed to hospitalist service due to concerns over bilateral wrist abscesses. The patient reports injecting heroin into the bilateral lower arms, most recently yesterday prior to arrival. The area is swollen and warm with track garcia and scabbing. She does report discomfort. Denies purulent drainage. Labs in the ED yesterday did not reveal any leukocytosis. Vitals stable. No SIRS criteria. [facility] Medical History Mood disorder Substance induced mood disorder Drug-induced psychotic disorder Asthma Social History Household Members: None Household Members Other:: Homeless Housing: Homeless Housing Other:: Homeless living w/ cousins Do you presently have visiting nurse or other home services: No Unable to assess alcohol history related to: Refusing to respond Alcohol intake: current Alcohol intake frequency: a few times a week Comment: bed 1 Patient Tobacco Use Status: Former Tobacco user Tobacco use type: Cigarette Cigarette Packs Per Day: 0 Cigarettes Per Day: 8 Years Smoked: 10 Smoked in Last 30 Days: No e-Cigarette/Vaping Use: Currently Using Patient Interested in Nicotine Replacement: No Patient Given Instructions on How to Stop Smoking: No Second Hand Smoke Exposure: No Use of substances other than those prescribed or required for medical reasons: Yes Substance Use Type: Crack/Cocaine and Heroin Substance Use Frequency: Daily Last Used Substance: Just Prior to Admission Last Used Substance Other:: heroin and cocaine Currently Displaying Signs/Symptoms of Drug Intoxication Withdrawal: No Any prior treatment program specific to substance use: Yes Have you been hit, kicked, punched, or otherwise hurt by someone within the past year? If so, by whom?: No Do you feel safe in your current relationship?: No Current Relationship Is there a partner from a previous relationship who is making you feel unsafe now?: No Are you made to feel afraid or neglected: No Advance Directives: No Advance Directives Information Provided: No (deirdre notes) Advance Directives Date on File: 03/05/22 Do you have thoughts of harming others: None Do you have a plan to hurt others: No Plan Recently lost weight without trying: No How much weight loss: Not applicable Eating poorly because of decreased appetite: No Nutrition screen score: 0 Nutrition Risks: Recent weight gain Patient : No : No Poor oral hygiene: No service: No Sexual orientation: Straight/Heterosexual Meds Allergies Allergy/AdvReac Type Severity Reaction Status Date / Time Penicillins [PENICILLINS] Allergy Unknown Hives Verified 08/15/24 19:31 haloperidol AdvReac Severe Anaphylaxis Verified 08/15/24 19:31 Active Medications: Current Medications Acetaminophen (Acetaminophen 325 Mg Tablet) 650 mg PO Q6H PRN PRN Reason: Headache/Pain, Scale 1-10 Al Hydroxide/Mg Hydroxide (Magnesium Hydrox/Alum Hydrox 30 Ml Oral.Susp) 30 ml PO Q6H PRN PRN Reason: Heartburn/Nausea Aripiprazole (Aripiprazole 5 Mg Tablet) 5 mg PO DAILY [facility] Last Admin: 08/18/24 08:47 Dose: 5 mg Benztropine Mesylate (Benztropine Mesylate 0.5 Mg Tablet) 0.5 mg PO DAILY [facility] Last Admin: 08/18/24 08:47 Dose: 0.5 mg Chlorpromazine HCl (Chlorpromazine Hcl 25 Mg Tablet) 50 mg PO BEDTIME [facility] Last Admin: 08/17/24 21:38 Dose: 50 mg Chlorpromazine HCl (Chlorpromazine Hcl 25 Mg Tablet) 25 mg PO Q4H PRN PRN Reason: psychosis/anxiety Last Admin: 08/17/24 18:55 Dose: 25 mg Gabapentin (Gabapentin 300 Mg Capsule) 300 mg PO BID [facility] Last Admin: 08/18/24 08:47 Dose: 300 mg Hydroxyzine HCl (Hydroxyzine Hcl 25 Mg Tablet) 25 mg PO Q6H PRN PRN Reason: mild anxiety Last Admin: 08/17/24 21:38 Dose: 25 mg Hydroxyzine HCl (Hydroxyzine Hcl 50 Mg Tablet) 100 mg PO BEDTIME PRN PRN Reason: Insomnia Ibuprofen (Ibuprofen 600 Mg Tablet) 600 mg PO Q8H PRN PRN Reason: Pain, Moderate(Pain Scale 4-6) Last Admin: 08/18/24 08:47 Dose: 600 mg Magnesium Hydroxide (Milk Of Magnesia 30 Ml Oral.Susp) 30 ml PO DAILY PRN PRN Reason: Constipation Methadone HCl (Methadone Hcl 20 Mg/2 Ml Oral.Conc) 128 mg PO DAILY [facility] Last Admin: 08/18/24 08:23 Dose: 128 mg Nicotine (Nicotine 21 Mg Patch.Td24) 21 mg TRANSDERMA DAILY PRN PRN Reason: Nicotine Cravings Nicotine Polacrilex (Nicotine Polacrilex Lozenge 4 Mg Lozenge) 4 mg BUCCAL Q2H PRN PRN Reason: Nicotine Cravings Ondansetron HCl (Ondansetron Odt 8 Mg Tab.Rapdis) 8 mg TRANSLINGU Q12H PRN PRN Reason: Nausea and Vomiting Trazodone HCl (Trazodone Hcl 50 Mg Tablet) 50 mg PO BEDTIME MRX1 PRN PRN Reason: Insomnia Last Admin: 08/17/24 21:38 Dose: 50 mg Home Medications ?Medication ?Instructions ?Recorded ?Confirmed ?Last Taken ?Type methadone 10 mg/mL oral 128 mg PO DAILY 10/30/23 08/16/24 08/15/24 History concentrate (Methadone Intensol) benztropine 0.5 mg tablet 0.5 mg PO DAILY 08/16/24 08/16/24 Unknown History gabapentin 300 mg capsule 300 mg PO TID 08/16/24 08/16/24 Unknown History Physical Exam 2 Vital Signs and Narrative: Vital Signs: Last Vital Signs Temp 98.2 F 08/18/24 08:08 Pulse 63 08/18/24 08:08 Resp 16 08/18/24 08:08 BP 121/66 08/18/24 08:08 Pulse Ox 97 08/18/24 08:08 O2 Del Method Room Air 08/18/24 08:08 BMI result Body Mass Index 40.1 Constitutional - Awake and Alert, No apparent distress Extremities - no calf tenderness bilaterally, swelling of the BUE Skin - Warm/Dry. Dusky erythema over the dorsum of the bilateral wrist with tracks garcia and several shallow ulceration but no fluctuance. Warmth over the bilateral wrists Assessment and Plan (1) Cellulitis of right wrist: Status: Acute Plan 28 year old female with a history of IVDA, OUD admitted to adult psychiatry with consult placed to hospitalist service due to concerns over bilateral wrist abscesses. Bilateral wrists with track garcia and shallow ulcerations over several of the injection sites. There is no is no fluctuance/drainable collection noted. Right wrist does appear to be cellulitic, L wrist possibly as well CBC, ESR, and CRP were ordered but patient refused. In the ED yesterday, no leukocytosis There are no fevers. Vitals normal. No SIRS criteria Trial doxycycline 100mg BID. Add hydrocortisone cream and bactroban to the open lesions Discussed with patient why the labs were being ordered and she agrees to labs tomorrow. Will continue to follow for results tomorrow. However, please notify hospitalist team for any fevers or change in condition
[2024-08-18] MEDS: Doxycycline Monohydrate 100 MG CAPSULE PO (18:23)
[2024-08-18] MEDS: chlorproMAZINE HCl 25 MG TABLET PO ×2 (19:00→23:00)
[2024-08-18] MEDS: hydrOXYzine HCL 25 MG TABLET PO (19:00)
[2024-08-18 20:35] VITALS: BP 129/70; PULSE 69; RESP 16; TEMP 36.4; O2SAT 98
[2024-08-18] MEDS: hydrOXYzine HCL 50 MG TABLET 100 MG PO (20:45)
[2024-08-18] MEDS: chlorproMAZINE HCl 25 MG TABLET 50 MG PO (20:45)
[2024-08-18] MEDS: traZODone HCL 50 MG TABLET PO ×2 (20:45→23:00)
[2024-08-19] MEDS: methADONE HCl 20 MG/2 ML ORAL.CONC 128 MG PO (07:51)
[2024-08-19 08:00] VITALS: BP 114/65; PULSE 69; RESP 14; TEMP 37.3; O2SAT 97
[2024-08-19] MEDS: Gabapentin 300 MG CAPSULE PO ×2 (08:42→20:09)
[2024-08-19] MEDS: Doxycycline Monohydrate 100 MG CAPSULE PO ×2 (08:42→20:09)
[2024-08-19] MEDS: ARIPiprazole 10 MG TABLET PO (08:43)
[2024-08-19] MEDS: Benztropine Mesylate 0.5 MG TABLET PO (08:43)
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
[2024-08-19] MEDS: chlorproMAZINE HCl 25 MG TABLET PO (16:11)
[2024-08-19] MEDS: LORazepam 0.5 MG TABLET PO (16:11)
--- NOTE | 2024-08-19 17:40 | HO.WOUND ---
Wound Consult: Initial 28yr old?female admitted to [facility] on 08/17/24 - See progress notes and H&P for detailed history.? Wound consult placed for bilateral wrist.? Patient agreeable to assessment and photo documentation.? Patient reports the sites are secondary to injection sites. She reports she uses Heroin, we discussed the effects of the drug on the tissue attempting to heal. We discussed picking new sites and cleansing skin prior to injection - she reports understanding. She reports previous use of [facility] services and understands they would be able to assist her in topical care and safe injection supplies. Bilateral Wrists Etiology: ?Ulcerations secondary to injection sites Wound Bed: dried scabs with crusted drainage to wound edges Drainage / Odor: None and crusted Edges: ? irregular [place]ory wound: mild erythema and swelling noted - No Induration, Fluctuance or Warmth noted Pain: mild pain reported Goals of Treatment: ? Hydrocolloid to allow for autolytic debridement and keep environment clean from contaminants. Recommendations: Bilateral Wrist - Cleanse with soap and water or NS moist gauze. Apply skin prep to periwound. Cover scabs with Hydrocolloid (Store[facility]# [id number]) change every 3 days and PRN. Re-consult wound care Nurse for wound deterioration or wound changes.
[2024-08-19 20:00] VITALS: BP 107/57; PULSE 77; RESP 18; TEMP 36.9; O2SAT 95
[2024-08-19] MEDS: traZODone HCL 50 MG TABLET PO (20:09)
[2024-08-19] MEDS: hydrOXYzine HCL 50 MG TABLET 100 MG PO (20:10)
[2024-08-19] MEDS: chlorproMAZINE HCl 100 MG TABLET PO (20:10)
[2024-08-20] MEDS: methADONE HCl 20 MG/2 ML ORAL.CONC 128 MG PO (07:59)
[2024-08-20 08:00] VITALS: BP 99/56; PULSE 70; RESP 14; TEMP 36.8; O2SAT 98
[2024-08-20] MEDS: Gabapentin 300 MG CAPSULE PO ×2 (08:17→20:12)
[2024-08-20] MEDS: Benztropine Mesylate 0.5 MG TABLET PO (08:17)
[2024-08-20] MEDS: ARIPiprazole 10 MG TABLET PO (08:17)
[2024-08-20] MEDS: Doxycycline Monohydrate 100 MG CAPSULE PO ×2 (08:17→20:12)
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
[2024-08-20] MEDS: hydrOXYzine HCL 25 MG TABLET PO (12:57)
[2024-08-20] MEDS: chlorproMAZINE HCl 25 MG TABLET PO (12:57)
[2024-08-20] MEDS: LORazepam 0.5 MG TABLET PO ×2 (13:26→17:33)
[2024-08-20] MEDS: Ibuprofen 600 MG TABLET PO (17:02)
[2024-08-20] MEDS: Throat Lozenge, Medicated LOZENGE 1 LOZENGE MUCOUS MEM (17:05)
[2024-08-20 19:50] VITALS: BP 108/57; PULSE 74; RESP 18; TEMP 36.7; O2SAT 95
[2024-08-20] MEDS: chlorproMAZINE HCl 100 MG TABLET PO (20:12)
[2024-08-20] MEDS: traZODone HCL 50 MG TABLET PO (20:16)
[2024-08-21 07:55] VITALS: BP 128/66; PULSE 71; RESP 16; TEMP 36.8; O2SAT 98
[2024-08-21] MEDS: methADONE HCl 20 MG/2 ML ORAL.CONC 128 MG PO (08:26)
[2024-08-21] MEDS: Benztropine Mesylate 0.5 MG TABLET PO (08:28)
[2024-08-21] MEDS: Doxycycline Monohydrate 100 MG CAPSULE PO ×2 (08:28→20:02)
[2024-08-21] MEDS: Gabapentin 300 MG CAPSULE PO ×2 (08:28→20:02)
[2024-08-21] MEDS: ARIPiprazole 15 MG TABLET PO (08:28)
[2024-08-21 09:03] LABS: MANUAL DIFF FLAG NO
[2024-08-21 09:16] LABS: Basophils Percent Auto 0.9 % (0-2); Eosinophils Absolute Auto 0.2 X10*3/uL (0.0-0.4); Eosinophils Percent Auto 6.3 % (0-4); Hematocrit 34.6 % (37.0-47.0); Hemoglobin 10.5 g/dl (12.0-16.0); Imm Gran Abs Auto 0.01 X10*3/uL (0.00-0.03); Imm Gran Pct Auto 0.3 % (0.0-0.4); Lymphocytes Absolute Auto 1.4 X10*3/uL (1.2-4.9); Lymphocytes Percent Auto 40.1 % (20-40); Mean Corpuscular HGB Conc 30.3 g/dl (31.0-35.0); Mean Corpuscular Hemoglobin 22.9 pg (27.0-33.0); Mean Corpuscular Volume 75.4 fL (80.0-98.0); Mean Platelet Volume 11.3 fL (9.4-12.3); Monocytes Absolute Auto 0.3 X10*3/uL (0.1-1.2); Monocytes Percent Auto 7.5 % (2-11); Neutrophils Absolute Auto 1.6 x10*3/uL (2.0-8.3); Neutrophils Percent Auto 44.9 % (45-73); Platelet Count 238 X10*3/uL (160-400); Red Blood Count 4.59 X10*6/uL (4.20-5.50); White Blood Count 3.5 X10*3/uL (4.8-10.8)
[2024-08-21 09:22] LABS: C Reactive Protein 0.36 mg/dL (< or = 0.50)
[2024-08-21 09:25] LABS: Alanine Aminotransferase 28 U/L (0-31); Albumin Level 3.5 g/dL (3.5-5.0); Alkaline Phosphatase 104 U/L (39-117); Anion Gap 9 (12-20); Aspartate Amino Transferase 35 U/L (5-31); Bilirubin Total 0.2 mg/dL (0.0-1.0); Blood Urea Nitrogen 11 mg/dL (9-16); Calcium 8.9 mg/dL (8.4-10.2); Carbon Dioxide 28 mmol/L (22-29); Chloride 106 mmol/L (96-108); Creatinine Clr Calc Pharmacy 137.4; Estimated Glomerular Filt Rate > 60; Glucose Random 105 mg/dL (60-115); Potassium 4.2 mmol/L (3.3-5.1); Sodium 139 mmol/L (135-145); Total Protein 7.2 g/dL (6.5-8.0)
[2024-08-21 09:26] LABS: Cholesterol 147 mg/dL (<200); HDL Cholesterol 37 mg/dL (>40); LDL Cholesterol Calculated 74 mg/dL (<100); Triglycerides 183 mg/dL (<150)
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
[2024-08-21 10:35] LABS: Erythrocyte Sedimentation Rate 30 MM/HR (0-20)
[2024-08-21] MEDS: LORazepam 0.5 MG TABLET PO ×2 (11:15→17:42)
[2024-08-21] MEDS: chlorproMAZINE HCl 25 MG TABLET 50 MG PO ×3 (11:16→22:42)
[2024-08-21 11:26] LABS: Estimated Average Glucose 105 mg/dL; Hemoglobin A1C 99.0528 umol/L; Hemoglobin A1c % 5.3 % (<6.0); Total Hemoglobin (HGBA1C) 2878.9333 umol/L
[2024-08-21] MEDS: hydrOXYzine HCL 25 MG TABLET PO (12:24)
[2024-08-21] MEDS: Ibuprofen 600 MG TABLET PO (15:24)
[2024-08-21 18:04] LABS: IDNOW Serial# 55D5AD1C; Strep A Nucleic Acid Negative (Negative)
[2024-08-21 18:33] LABS: Influenza A PCR NEGATIVE (Negative); Influenza B PCR NEGATIVE (Negative); Resp Syncy Virus RNA Qual PCR NEGATIVE (Negative); SARS COV2 PCR INHOUSE NEGATIVE (Negative)
[2024-08-21 20:00] VITALS: BP 121/69; PULSE 83; RESP 18; TEMP 36.9; O2SAT 97
[2024-08-21] MEDS: chlorproMAZINE HCl 100 MG TABLET PO (20:02)
[2024-08-21] MEDS: Throat Lozenge, Medicated LOZENGE 1 LOZENGE MUCOUS MEM (20:03)
[2024-08-21] MEDS: traZODone HCL 100 MG TABLET PO (20:03)
[2024-08-21] MEDS: Nicotine 21 MG PATCH.TD24 TRANSDERMA (20:03)
[2024-08-21] MEDS: hydrOXYzine HCL 50 MG TABLET 100 MG PO (22:42)
[2024-08-22 08:00] VITALS: BP 112/61; PULSE 70; RESP 16; TEMP 36.5; O2SAT 97
[2024-08-22] MEDS: methADONE HCl 20 MG/2 ML ORAL.CONC 128 MG PO (08:34)
[2024-08-22] MEDS: Doxycycline Monohydrate 100 MG CAPSULE PO ×2 (08:38→21:15)
[2024-08-22] MEDS: ARIPiprazole 15 MG TABLET PO (08:38)
[2024-08-22] MEDS: Gabapentin 300 MG CAPSULE PO ×2 (08:38→21:16)
[2024-08-22] MEDS: hydrOXYzine HCL 25 MG TABLET PO (08:38)
[2024-08-22] MEDS: Benztropine Mesylate 0.5 MG TABLET PO (08:38)
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
[2024-08-22] MEDS: LORazepam 0.5 MG TABLET PO ×2 (12:55→19:25)
[2024-08-22] MEDS: chlorproMAZINE HCl 25 MG TABLET 50 MG PO (14:15)
[2024-08-22] MEDS: chlorproMAZINE HCl 100 MG TABLET PO ×2 (16:56→21:16)
[2024-08-22 20:00] VITALS: BP 110/54; PULSE 87; RESP 18; TEMP 37.7; O2SAT 99
[2024-08-22] MEDS: traZODone HCL 100 MG TABLET PO (21:16)
[2024-08-22] MEDS: Ibuprofen 600 MG TABLET PO (21:16)
[2024-08-22] MEDS: Throat Lozenge, Medicated LOZENGE 1 LOZENGE MUCOUS MEM (21:17)
[2024-08-23] MEDS: hydrOXYzine HCL 50 MG TABLET 100 MG PO ×2 (00:39→20:29)
[2024-08-23 08:00] VITALS: BP 114/64; PULSE 91; RESP 14; TEMP 36.9; O2SAT 97
[2024-08-23] MEDS: methADONE HCl 20 MG/2 ML ORAL.CONC 128 MG PO (08:17)
[2024-08-23] MEDS: Doxycycline Monohydrate 100 MG CAPSULE PO ×2 (08:22→20:29)
[2024-08-23] MEDS: hydrOXYzine HCL 25 MG TABLET PO (08:22)
[2024-08-23] MEDS: ARIPiprazole 15 MG TABLET PO (08:22)
[2024-08-23] MEDS: Benztropine Mesylate 0.5 MG TABLET PO (08:22)
[2024-08-23] MEDS: chlorproMAZINE HCl 100 MG TABLET PO ×3 (08:23→20:27)
[2024-08-23] MEDS: Gabapentin 300 MG CAPSULE PO ×2 (08:23→20:27)
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
[2024-08-23] MEDS: LORazepam 0.5 MG TABLET PO ×2 (11:09→18:43)
[2024-08-23] MEDS: Acetaminophen 325 MG TABLET 650 MG PO (16:14)
[2024-08-23] MEDS: Ibuprofen 600 MG TABLET PO (18:42)
[2024-08-23 20:00] VITALS: BP 116/67; PULSE 84; RESP 16; TEMP 36.7; O2SAT 97
[2024-08-23] MEDS: traZODone HCL 100 MG TABLET PO (20:29)
[2024-08-24 07:52] VITALS: BP 107/57; PULSE 76; RESP 16; TEMP 36.8; O2SAT 93
[2024-08-24] MEDS: methADONE HCl 20 MG/2 ML ORAL.CONC 128 MG PO (07:53)
[2024-08-24] MEDS: Doxycycline Monohydrate 100 MG CAPSULE PO ×2 (08:26→19:59)
[2024-08-24] MEDS: ARIPiprazole 15 MG TABLET PO (08:27)
[2024-08-24] MEDS: chlorproMAZINE HCl 100 MG TABLET PO ×3 (08:27→19:59)
[2024-08-24] MEDS: Benztropine Mesylate 0.5 MG TABLET PO (08:27)
[2024-08-24] MEDS: Gabapentin 300 MG CAPSULE PO ×2 (08:27→19:59)
--- NOTE | 2024-08-24 10:58 | P.PNPSI_ITS ---
Subjective Subjective Date of Service: 08/24/24 Reason For Visit: CRISIS Subjective Notes: Conditional Voluntary Interim History: Pt continues to report increased depression and anxiety; she reports suicidal ideation. Pt stated, I'm sick of it. I'm tired of feeling this way. I want to cut my wrists . Pt continues to report auditory hallucinations but states they are not as loud ; +VH of shadows . Apologetic for not attending groups; states she is not feel well . discussed medication hx; pt reports positive effects from medication regimen during last inpatient admission. Restart fluoxetine 20mg PO daily. Medication Compliance: Yes Side effects from medications: No Attending Groups: No Mental Status Exam Mental Status Exam Narrative: Pt is alert and oriented; behavior is cooperative and calm; dressed in casual attire; mood is described as depressed and anxious ; eye contact appropriate; Speech is normal rate, volume and not pressured; thought process is organized; Thought content is on tx; denies HI. Pt reports auditory hallucinations are not as loud ; continues to report +VH of shadows. She reports suicidal ideation with plan to cut my wrists . Diagnostics Vital Signs (24Hr): Vital Signs - 24 hr 08/23/24 20:00 08/24/24 07:52 Temperature 98.1 F 98.2 F Pulse Rate 84 76 Respiratory Rate 16 16 Blood Pressure 116/67 107/57 L Pulse Oximetry 97 93 Oxygen Delivery Method Room Air Room Air BMI result Body Mass Index 40.1 Labs 08/21/24 08:43 08/21/24 08:43 Medications Medications Current Medications Acetaminophen (Acetaminophen 325 Mg Tablet) 650 mg PO Q6H PRN PRN Reason: Headache/Pain, Scale 1-3 Last Admin: 08/23/24 16:14 Dose: 650 mg Al Hydroxide/Mg Hydroxide (Magnesium Hydrox/Alum Hydrox 30 Ml Oral.Susp) 30 ml PO Q6H PRN PRN Reason: Heartburn/Nausea Aripiprazole (Aripiprazole 15 Mg Tablet) 15 mg PO DAILY JOHN Last Admin: 08/24/24 08:27 Dose: 15 mg Benzocaine (Throat Lozenge, Medicated Lozenge) 1 lozenge MUCOUS MEM Q2H PRN PRN Reason: Sore Throat Last Admin: 08/22/24 21:17 Dose: 1 lozenge Benztropine Mesylate (Benztropine Mesylate 0.5 Mg Tablet) 0.5 mg PO DAILY [facility] Last Admin: 08/24/24 08:27 Dose: 0.5 mg Chlorpromazine HCl (Chlorpromazine Hcl 100 Mg Tablet) 100 mg PO TID [facility] Last Admin: 08/24/24 08:27 Dose: 100 mg Doxycycline Monohydrate (Doxycycline Monohydrate 100 Mg Capsule) 100 mg PO Q12H [facility] Stop: 08/26/24 08:00 Last Admin: 08/24/24 08:26 Dose: 100 mg Gabapentin (Gabapentin 300 Mg Capsule) 300 mg PO BID [facility] Last Admin: 08/24/24 08:27 Dose: 300 mg Hydroxyzine HCl (Hydroxyzine Hcl 25 Mg Tablet) 25 mg PO Q6H PRN PRN Reason: mild anxiety Last Admin: 08/23/24 08:22 Dose: 25 mg Hydroxyzine HCl (Hydroxyzine Hcl 50 Mg Tablet) 100 mg PO BEDTIME PRN PRN Reason: Insomnia Last Admin: 08/23/24 20:29 Dose: 100 mg Ibuprofen (Ibuprofen 600 Mg Tablet) 600 mg PO Q8H PRN PRN Reason: Pain, Moderate(Pain Scale 4-6) Last Admin: 08/23/24 18:42 Dose: 600 mg Lorazepam (Lorazepam 0.5 Mg Tablet) 0.5 mg PO BID PRN PRN Reason: severe anxiety Last Admin: 08/23/24 18:43 Dose: 0.5 mg Magnesium Hydroxide (Milk Of Magnesia 30 Ml Oral.Susp) 30 ml PO DAILY PRN PRN Reason: Constipation Methadone HCl (Methadone Hcl 20 Mg/2 Ml Oral.Conc) 128 mg PO DAILY@0800 [facility] Last Admin: 08/24/24 07:53 Dose: 128 mg Nicotine (Nicotine 21 Mg Patch.Td24) 21 mg TRANSDERMA DAILY PRN PRN Reason: Nicotine Cessation Last Admin: 08/21/24 20:03 Dose: 21 mg Nicotine Polacrilex (Nicotine Polacrilex Lozenge 4 Mg Lozenge) 4 mg BUCCAL Q2H PRN PRN Reason: Nicotine Cravings Ondansetron HCl (Ondansetron Odt 8 Mg Tab.Rapdis) 8 mg TRANSLINGU Q12H PRN PRN Reason: Nausea and Vomiting Trazodone HCl (Trazodone Hcl 100 Mg Tablet) 100 mg PO BEDTIME PRN PRN Reason: insomnia Last Admin: 08/23/24 20:29 Dose: 100 mg Allergies Allergies Allergy/AdvReac Type Severity Reaction Status Date / Time Penicillins [PENICILLINS] Allergy Unknown Hives Verified 08/15/24 19:31 haloperidol AdvReac Severe Anaphylaxis Verified 08/15/24 19:31 Assessment & Plan Assessment & Plan (1) MDD (major depressive disorder), recurrent episode, moderate: Status: Acute Code(s): F33.1 - Major depressive disorder, recurrent, moderate (2) PTSD (post-traumatic stress disorder): Status: Acute Code(s): F43.10 - Post-traumatic stress disorder, unspecified (3) Cellulitis of right wrist: Status: Acute Code(s): L03.113 - Cellulitis of right upper limb (4) Cocaine use disorder: Status: Acute Code(s): F14.10 - Cocaine abuse, uncomplicated (5) Homelessness: Status: Acute Code(s): Z59.00 - Homelessness unspecified Plan Patient is a 28-year-old female with history of MDD, PTSD, opiate use disorder, and cocaine use disorder who presented to [facility] via ambulance reporting she had been poisoned and poison in the vents secondary to substance use and medication noncompliance. Plan: CV 15 minute safety checks Wound consult for bilateral wrist abscess After review of hx of medication regimen: Start: Abilify 5mg PO daily Thorazine 50mg PO bedtime thorazine 25mg PO Q4HR PRN Gabapentin 300mg PO BID hydroxyzine 100mg PO bedtime PRN encourage groups referral to outpatient psychiatric providers referral to substance abuse program discharge planning 08/18: Laying in bed. keeping to self. pt continues to report increased depression and suicidal ideation. She reports auditory hallucinations of voices that just keep talking ; encouraged to utilize PRN medications. per nursing, slept 8 hours. focused on referral to substance abuse program. encouraged to attend groups. Increase abilify to 10mg PO daily. Hospitalist consult placed for bilateral wrist abscess. 08/19: Continues to lay in bed most of the day. Pt reports feeling tired because I haven't slept in days . pt continues to report feeling depressed and anxious ; requesting for increase in her medications and to be restarted on Ativan. pt continues to report suicidal ideation with no plan and auditory hallucinations. denies HI/VH. Increase Thorazine to 100mg PO bedtime. Start: Ativan 0.5mg PO daily PRN 08/20: Awake, alert, believes that someone from the outside is putting something in the vents to harm her. Increase Abilify to 15 mg daily, increase Chlorpromazine to 50 mg q4h prn and increase Lorazepam to 0.5 mg bid prn 08/21: Throat culture/SARS/Flu/covid negative. WBC decreased-?viral infection. Ear aches, sore throat. continue to monitor-Abilify may need to be decreased. Throat emily prn. Increase Trazodone to 100 mg HS prn, 08/22: Pt reports no change in sx, anxiety, paranoia. Not attending groups, howver, social with peers. Schedule chlorpromazine to 100 mg tid, DC prn chlorpromazine. Monitor for sedation. 08/23: Continues with intermittent AH, VH, passive SI. Denies thoughts to harm self or others. Med compliant, tolerating Thorazine TID. Complains related to teeth pain and skin lesions. Denies fever, chills, SOB, CP, n/v/d. 08/24: Pt continues to report increased depression and anxiety; she reports suicidal ideation. Pt stated, I'm sick of it. I'm tired of feeling this way. I want to cut my wrists . Pt continues to report auditory hallucinations but states they are not as loud ; +VH of shadows . Apologetic for not attending groups; states she is not feel well . discussed medication hx; pt reports positive effects from medication regimen during last inpatient admission. Restart fluoxetine 20mg PO daily. Patient educated on: diagnosis and medication risk/benefits Reason for continued inpatient stay Substantial Risk for: harm to self and med/psych decompensation Time Spent With Patient Time: Total time managing care of this patient today _20___ minutes.
[2024-08-24] MEDS: LORazepam 0.5 MG TABLET PO ×2 (12:12→17:34)
[2024-08-24] MEDS: FLUoxetine HCl 20 MG CAPSULE PO (14:47)
[2024-08-24 20:00] VITALS: BP 110/58; PULSE 88; RESP 16; TEMP 36.6; O2SAT 97
[2024-08-24] MEDS: traZODone HCL 100 MG TABLET PO (20:21)
[2024-08-24] MEDS: hydrOXYzine HCL 50 MG TABLET 100 MG PO (20:21)
--- NOTE | 2024-08-25 | ECG_ITS ---
Test Reason : medications Blood Pressure : */* mmHG Vent. Rate : 64 BPM Atrial Rate : 64 BPM P-R Int : 156 ms QRS Dur : 90 ms QT Int : 450 ms P-R-T Axes : 49 12 30 degrees QTcB Int : 464 ms Normal sinus rhythm Normal ECG When compared with ECG of 17-Aug-2024 09:53, No significant change was found Referred By: Mary Alice Barboza Electronically Signed By: Darian Matthews
[2024-08-25 07:57] VITALS: BP 116/63; PULSE 77; RESP 16; TEMP 36.4; O2SAT 93
[2024-08-25] MEDS: methADONE HCl 20 MG/2 ML ORAL.CONC 128 MG PO (08:09)
[2024-08-25] MEDS: Ibuprofen 600 MG TABLET PO (08:24)
[2024-08-25] MEDS: chlorproMAZINE HCl 100 MG TABLET PO ×3 (08:24→21:08)
[2024-08-25] MEDS: Doxycycline Monohydrate 100 MG CAPSULE PO ×2 (08:25→21:08)
[2024-08-25] MEDS: Gabapentin 300 MG CAPSULE PO ×2 (08:25→21:08)
[2024-08-25] MEDS: Benztropine Mesylate 0.5 MG TABLET PO (08:25)
[2024-08-25] MEDS: FLUoxetine HCl 20 MG CAPSULE PO (08:25)
[2024-08-25] MEDS: ARIPiprazole 15 MG TABLET PO (08:26)
[2024-08-25] MEDS: Throat Lozenge, Medicated LOZENGE 1 LOZENGE MUCOUS MEM (08:26)
[2024-08-25] MEDS: Nicotine 21 MG PATCH.TD24 TRANSDERMA (08:26)
--- NOTE | 2024-08-25 10:32 | HO.PSYCHPN ---
Subjective Subjective Date of Service: 08/25/24 Reason For Visit: CRISIS Subjective Notes: Conditional Voluntary Interim History: Pt continues to report increased depression; pt stated, I'm feeling a little better today. The voices are less and the thoughts are self harm are decreasing Continues to report suicidal ideation and auditory hallucinations. denies HI/VH. Patient reports she is going to try to go to more groups today but being around people makes me anxious . Increase Abilify to 20mg PO daily. Medication Compliance: Yes Side effects from medications: No Attending Groups: Intermittent Mental Status Exam Mental Status Exam Narrative: Pt is alert and oriented; behavior is cooperative and calm; dressed in casual attire; mood is described as depressed ; eye contact appropriate; Speech is normal rate, volume and not pressured; thought process is organized; Thought content is on tx; denies HI. Pt reports auditory hallucinations are quieter ; continues to report +VH of shadows. She reports suicidal ideation but has decreased. Diagnostics Vital Signs (24Hr): Vital Signs - 24 hr 08/24/24 20:00 08/25/24 07:57 Temperature 97.8 F 97.6 F Pulse Rate 88 77 Respiratory Rate 16 16 Blood Pressure 110/58 L 116/63 Pulse Oximetry 97 93 Oxygen Delivery Method Room Air Room Air BMI result Body Mass Index 40.1 Labs 08/21/24 08:43 08/21/24 08:43 Medications Medications Current Medications Acetaminophen (Acetaminophen 325 Mg Tablet) 650 mg PO Q6H PRN PRN Reason: Headache/Pain, Scale 1-3 Last Admin: 08/23/24 16:14 Dose: 650 mg Al Hydroxide/Mg Hydroxide (Magnesium Hydrox/Alum Hydrox 30 Ml Oral.Susp) 30 ml PO Q6H PRN PRN Reason: Heartburn/Nausea Aripiprazole (Aripiprazole 20 Mg Tablet) 20 mg PO DAILY [facility]S [facility]CLUDE 234 BEDS AT [facility] Benzocaine (Throat Lozenge, Medicated Lozenge) 1 lozenge MUCOUS MEM Q2H PRN PRN Reason: Sore Throat Last Admin: 08/25/24 08:26 Dose: 1 lozenge Benztropine Mesylate (Benztropine Mesylate 0.5 Mg Tablet) 0.5 mg PO DAILY JOHN Last Admin: 08/25/24 08:25 Dose: 0.5 mg Chlorpromazine HCl (Chlorpromazine Hcl 100 Mg Tablet) 100 mg PO TID JOHN Last Admin: 08/25/24 08:24 Dose: 100 mg Doxycycline Monohydrate (Doxycycline Monohydrate 100 Mg Capsule) 100 mg PO Q12H COUNTS INCLUDE 234 BEDS AT THE [facility] Stop: 08/26/24 08:00 Last Admin: 08/25/24 08:25 Dose: 100 mg Fluoxetine HCl (Fluoxetine Hcl 20 Mg Capsule) 20 mg PO DAILY COUNTS INCLUDE 234 BEDS AT THE [facility] Last Admin: 08/25/24 08:25 Dose: 20 mg Gabapentin (Gabapentin 300 Mg Capsule) 300 mg PO BID COUNTS INCLUDE 234 BEDS AT THE [facility] Last Admin: 08/25/24 08:25 Dose: 300 mg Hydroxyzine HCl (Hydroxyzine Hcl 25 Mg Tablet) 25 mg PO Q6H PRN PRN Reason: mild anxiety Last Admin: 08/23/24 08:22 Dose: 25 mg Hydroxyzine HCl (Hydroxyzine Hcl 50 Mg Tablet) 100 mg PO BEDTIME PRN PRN Reason: Insomnia Last Admin: 08/24/24 20:21 Dose: 100 mg Ibuprofen (Ibuprofen 600 Mg Tablet) 600 mg PO Q8H PRN PRN Reason: Pain, Moderate(Pain Scale 4-6) Last Admin: 08/25/24 08:24 Dose: 600 mg Lorazepam (Lorazepam 0.5 Mg Tablet) 0.5 mg PO BID PRN PRN Reason: severe anxiety Last Admin: 08/24/24 17:34 Dose: 0.5 mg Magnesium Hydroxide (Milk Of Magnesia 30 Ml Oral.Susp) 30 ml PO DAILY PRN PRN Reason: Constipation Methadone HCl (Methadone Hcl 20 Mg/2 Ml Oral.Conc) 128 mg PO DAILY@0800 COUNTS [facility]CLUDE 234 BEDS AT THE [facility] Last Admin: 08/25/24 08:09 Dose: 128 mg Nicotine (Nicotine 21 Mg Patch.Td24) 21 mg TRANSDERMA DAILY PRN PRN Reason: Nicotine Cessation Last Admin: 08/25/24 08:26 Dose: 21 mg Nicotine Polacrilex (Nicotine Polacrilex Lozenge 4 Mg Lozenge) 4 mg BUCCAL Q2H PRN PRN Reason: Nicotine Cravings Ondansetron HCl (Ondansetron Odt 8 Mg Tab.Rapdis) 8 mg TRANSLINGU Q12H PRN PRN Reason: Nausea and Vomiting Trazodone HCl (Trazodone Hcl 100 Mg Tablet) 100 mg PO BEDTIME PRN PRN Reason: insomnia Last Admin: 08/24/24 20:21 Dose: 100 mg Allergies Allergies Allergy/AdvReac Type Severity Reaction Status Date / Time Penicillins [PENICILLINS] Allergy Unknown Hives Verified 08/15/24 19:31 haloperidol AdvReac Severe Anaphylaxis Verified 08/15/24 19:31 Assessment & Plan Assessment & Plan (1) MDD (major depressive disorder), recurrent episode, moderate: Status: Acute Code(s): F33.1 - Major depressive disorder, recurrent, moderate (2) PTSD (post-traumatic stress disorder): Status: Acute Code(s): F43.10 - Post-traumatic stress disorder, unspecified (3) Cellulitis of right wrist: Status: Acute Code(s): L03.113 - Cellulitis of right upper limb (4) Cocaine use disorder: Status: Acute Code(s): F14.10 - Cocaine abuse, uncomplicated (5) Homelessness: Status: Acute Code(s): Z59.00 - Homelessness unspecified Plan Patient is a 28-year-old female with history of MDD, PTSD, opiate use disorder, and cocaine use disorder who presented to [facility] via ambulance reporting she had been poisoned and poison in the vents secondary to substance use and medication noncompliance. Plan: CV 15 minute safety checks Wound consult for bilateral wrist abscess After review of hx of medication regimen: Start: Abilify 5mg PO daily Thorazine 50mg PO bedtime thorazine 25mg PO Q4HR PRN Gabapentin 300mg PO BID hydroxyzine 100mg PO bedtime PRN encourage groups referral to outpatient psychiatric providers referral to substance abuse program discharge planning 08/18: Laying in bed. keeping to self. pt continues to report increased depression and suicidal ideation. She reports auditory hallucinations of voices that just keep talking ; encouraged to utilize PRN medications. per nursing, slept 8 hours. focused on referral to substance abuse program. encouraged to attend groups. Increase abilify to 10mg PO daily. Hospitalist consult placed for bilateral wrist abscess. 08/19: Continues to lay in bed most of the day. Pt reports feeling tired because I haven't slept in days . pt continues to report feeling depressed and anxious ; requesting for increase in her medications and to be restarted on Ativan. pt continues to report suicidal ideation with no plan and auditory hallucinations. denies HI/VH. Increase Thorazine to 100mg PO bedtime. Start: Ativan 0.5mg PO daily PRN 08/20: Awake, alert, believes that someone from the outside is putting something in the vents to harm her. Increase Abilify to 15 mg daily, increase Chlorpromazine to 50 mg q4h prn and increase Lorazepam to 0.5 mg bid prn 08/21: Throat culture/SARS/Flu/covid negative. WBC decreased-?viral infection. Ear aches, sore throat. continue to monitor-Abilify may need to be decreased. Throat emily prn. Increase Trazodone to 100 mg HS prn, 08/22: Pt reports no change in sx, anxiety, paranoia. Not attending groups, howver, social with peers. Schedule chlorpromazine to 100 mg tid, DC prn chlorpromazine. Monitor for sedation. 08/23: Continues with intermittent AH, VH, passive SI. Denies thoughts to harm self or others. Med compliant, tolerating Thorazine TID. Complains related to teeth pain and skin lesions. Denies fever, chills, SOB, CP, n/v/d. 08/24: Pt continues to report increased depression and anxiety; she reports suicidal ideation. Pt stated, I'm sick of it. I'm tired of feeling this way. I want to cut my wrists . Pt continues to report auditory hallucinations but states they are not as loud ; +VH of shadows . Apologetic for not attending groups; states she is not feel well . discussed medication hx; pt reports positive effects from medication regimen during last inpatient admission. Restart fluoxetine 20mg PO daily. 08/25:Pt continues to report increased depression; pt stated, I'm feeling a little better today. The voices are less and the thoughts are self harm are decreasing Continues to report suicidal ideation and auditory hallucinations. denies HI/VH. Patient reports she is going to try to go to more groups today but being around people makes me anxious . Appears sedated during the day despite pt reporting sleeping well. DC Thorazine 100mg PO TID. Increase Abilify to 20mg PO daily. Patient educated on: diagnosis, medication risk/benefits and therapeutic strategies Reason for continued inpatient stay Substantial Risk for: harm to self and med/psych decompensation Time Spent With Patient Time: Total time managing care of this patient today _20___ minutes.
[2024-08-25] MEDS: LORazepam 0.5 MG TABLET PO ×2 (16:04→21:44)
[2024-08-25] MEDS: Ondansetron ODT 8 MG TAB.RAPDIS TRANSLINGU (16:04)
[2024-08-25 20:00] VITALS: BP 129/63; PULSE 80; RESP 16; TEMP 36.4; O2SAT 98
[2024-08-25] MEDS: hydrOXYzine HCL 50 MG TABLET 100 MG PO (21:07)
[2024-08-25] MEDS: Mineral Oil/Petrolatum,White 106 GM Tube 1 APPL TOPICAL (21:09)
[2024-08-26 07:32] VITALS: BP 107/59; PULSE 86; RESP 16; TEMP 36.6; O2SAT 97
[2024-08-26] MEDS: methADONE HCl 20 MG/2 ML ORAL.CONC 128 MG PO (08:05)
[2024-08-26] MEDS: Doxycycline Monohydrate 100 MG CAPSULE PO (08:07)
[2024-08-26] MEDS: Gabapentin 300 MG CAPSULE PO ×2 (08:07→20:45)
[2024-08-26] MEDS: Benztropine Mesylate 0.5 MG TABLET PO (08:07)
[2024-08-26] MEDS: FLUoxetine HCl 20 MG CAPSULE PO (08:07)
[2024-08-26] MEDS: ARIPiprazole 20 MG TABLET PO (08:08)
[2024-08-26] MEDS: LORazepam 0.5 MG TABLET PO ×2 (11:23→19:15)
[2024-08-26 12:59] LABS: Ammonia 66 umol/L (13-55)
--- NOTE | 2024-08-26 14:58 | HO.PSYCHPN ---
Subjective Subjective Date of Service: 08/26/24 Reason For Visit: CRISIS Subjective Notes: Conditional Voluntary Interim History: Patient reports her anxiety has improved and her depression is a little better . She continues to report auditory hallucinations that are calling her names . denies SI/HI/VH. Patient denies any side effects from change in medications. Patient reports if she is not accepted to a substance abuse program, she will either stay with her father or go to a penitentiary in [place]. Per nursing, patient slept 8 hours. Continue current treatment plan. Medication Compliance: Yes Side effects from medications: No Attending Groups: Intermittent Mental Status Exam Mental Status Exam Narrative: Pt is alert and oriented; behavior is cooperative and calm; dressed in casual attire; mood is described as a little better ; eye contact appropriate; Speech is normal rate, volume and not pressured; thought process is organized; Thought content is on tx; denies SI/HI/VH. Pt reports auditory hallucinations are calling me names . Diagnostics Vital Signs (24Hr): Vital Signs - 24 hr 08/25/24 20:00 08/26/24 07:32 Temperature 97.6 F 97.8 F Pulse Rate 80 86 Respiratory Rate 16 16 Blood Pressure 129/63 107/59 L Pulse Oximetry 98 97 Oxygen Delivery Method Room Air Room Air BMI result Body Mass Index 40.1 Labs 08/21/24 08:43 08/21/24 08:43 Labs: Laboratory Results - last 48 hr 08/26/24 12:36 Ammonia 66 H Medications Medications Current Medications Acetaminophen (Acetaminophen 325 Mg Tablet) 650 mg PO Q6H PRN PRN Reason: Headache/Pain, Scale 1-3 Last Admin: 08/23/24 16:14 Dose: 650 mg Al Hydroxide/Mg Hydroxide (Magnesium Hydrox/Alum Hydrox 30 Ml Oral.Susp) 30 ml PO Q6H PRN PRN Reason: Heartburn/Nausea Aripiprazole (Aripiprazole 20 Mg Tablet) 20 mg PO DAILY [facility] Last Admin: 08/26/24 08:08 Dose: 20 mg Benzocaine (Throat Lozenge, Medicated Lozenge) 1 lozenge MUCOUS MEM Q2H PRN PRN Reason: Sore Throat Last Admin: 08/25/24 08:26 Dose: 1 lozenge Benztropine Mesylate (Benztropine Mesylate 0.5 Mg Tablet) 0.5 mg PO DAILY JOHN Last Admin: 08/26/24 08:07 Dose: 0.5 mg Fluoxetine HCl (Fluoxetine Hcl 20 Mg Capsule) 20 mg PO DAILY [facility] Last Admin: 08/26/24 08:07 Dose: 20 mg Gabapentin (Gabapentin 300 Mg Capsule) 300 mg PO BID [facility] Last Admin: 08/26/24 08:07 Dose: 300 mg Hydroxyzine HCl (Hydroxyzine Hcl 25 Mg Tablet) 25 mg PO Q6H PRN PRN Reason: mild anxiety Last Admin: 08/23/24 08:22 Dose: 25 mg Hydroxyzine HCl (Hydroxyzine Hcl 50 Mg Tablet) 100 mg PO BEDTIME PRN PRN Reason: Insomnia Last Admin: 08/25/24 21:07 Dose: 100 mg Ibuprofen (Ibuprofen 600 Mg Tablet) 600 mg PO Q8H PRN PRN Reason: Pain, Moderate(Pain Scale 4-6) Last Admin: 08/25/24 08:24 Dose: 600 mg Lorazepam (Lorazepam 0.5 Mg Tablet) 0.5 mg PO BID PRN PRN Reason: severe anxiety Last Admin: 08/26/24 11:23 Dose: 0.5 mg Magnesium Hydroxide (Milk Of Magnesia 30 Ml Oral.Susp) 30 ml PO DAILY PRN PRN Reason: Constipation Methadone HCl (Methadone Hcl 20 Mg/2 Ml Oral.Conc) 128 mg PO DAILY@0800 [facility] Last Admin: 08/26/24 08:05 Dose: 128 mg Multi-Ingred Cream/Lotion/Oil/Oint (Mineral Oil/Petrolatum,White 106 Gm Tube) 1 appl TOPICAL BEDTIME [facility]; Protocol Last Admin: 08/25/24 21:09 Dose: 1 appl Nicotine (Nicotine 21 Mg Patch.Td24) 21 mg TRANSDERMA DAILY PRN PRN Reason: Nicotine Cessation Last Admin: 08/25/24 08:26 Dose: 21 mg Nicotine Polacrilex (Nicotine Polacrilex Lozenge 4 Mg Lozenge) 4 mg BUCCAL Q2H PRN PRN Reason: Nicotine Cravings Ondansetron HCl (Ondansetron Odt 8 Mg Tab.Rapdis) 8 mg TRANSLINGU Q12H PRN PRN Reason: Nausea and Vomiting Last Admin: 08/25/24 16:04 Dose: 8 mg Trazodone HCl (Trazodone Hcl 100 Mg Tablet) 100 mg PO BEDTIME PRN PRN Reason: insomnia Last Admin: 08/24/24 20:21 Dose: 100 mg Allergies Allergies Allergy/AdvReac Type Severity Reaction Status Date / Time Penicillins [PENICILLINS] Allergy Unknown Hives Verified 08/15/24 19:31 haloperidol AdvReac Severe Anaphylaxis Verified 08/15/24 19:31 Assessment & Plan Assessment & Plan (1) MDD (major depressive disorder), recurrent episode, moderate: Status: Acute Code(s): F33.1 - Major depressive disorder, recurrent, moderate (2) PTSD (post-traumatic stress disorder): Status: Acute Code(s): F43.10 - Post-traumatic stress disorder, unspecified (3) Cellulitis of right wrist: Status: Acute Code(s): L03.113 - Cellulitis of right upper limb (4) Cocaine use disorder: Status: Acute Code(s): F14.10 - Cocaine abuse, uncomplicated (5) Homelessness: Status: Acute Code(s): Z59.00 - Homelessness unspecified Plan Patient is a 28-year-old female with history of MDD, PTSD, opiate use disorder, and cocaine use disorder who presented to [facility] [place] [place] [facility] via ambulance reporting she had been poisoned and poison in the vents secondary to substance use and medication noncompliance. Plan: CV 15 minute safety checks Wound consult for bilateral wrist abscess After review of hx of medication regimen: Start: Abilify 5mg PO daily Thorazine 50mg PO bedtime thorazine 25mg PO Q4HR PRN Gabapentin 300mg PO BID hydroxyzine 100mg PO bedtime PRN encourage groups referral to outpatient psychiatric providers referral to substance abuse program discharge planning 08/18: Laying in bed. keeping to self. pt continues to report increased depression and suicidal ideation. She reports auditory hallucinations of voices that just keep talking ; encouraged to utilize PRN medications. per nursing, slept 8 hours. focused on referral to substance abuse program. encouraged to attend groups. Increase abilify to 10mg PO daily. Hospitalist consult placed for bilateral wrist abscess. 08/19: Continues to lay in bed most of the day. Pt reports feeling tired because I haven't slept in days . pt continues to report feeling depressed and anxious ; requesting for increase in her medications and to be restarted on Ativan. pt continues to report suicidal ideation with no plan and auditory hallucinations. denies HI/VH. Increase Thorazine to 100mg PO bedtime. Start: Ativan 0.5mg PO daily PRN 08/20: Awake, alert, believes that someone from the outside is putting something in the vents to harm her. Increase Abilify to 15 mg daily, increase Chlorpromazine to 50 mg q4h prn and increase Lorazepam to 0.5 mg bid prn 08/21: Throat culture/SARS/Flu/covid negative. WBC decreased-?viral infection. Ear aches, sore throat. continue to monitor-Abilify may need to be decreased. Throat emily prn. Increase Trazodone to 100 mg HS prn, 08/22: Pt reports no change in sx, anxiety, paranoia. Not attending groups, howver, social with peers. Schedule chlorpromazine to 100 mg tid, DC prn chlorpromazine. Monitor for sedation. 08/23: Continues with intermittent AH, VH, passive SI. Denies thoughts to harm self or others. Med compliant, tolerating Thorazine TID. Complains related to teeth pain and skin lesions. Denies fever, chills, SOB, CP, n/v/d. 08/24: Pt continues to report increased depression and anxiety; she reports suicidal ideation. Pt stated, I'm sick of it. I'm tired of feeling this way. I want to cut my wrists . Pt continues to report auditory hallucinations but states they are not as loud ; +VH of shadows . Apologetic for not attending groups; states she is not feel well . discussed medication hx; pt reports positive effects from medication regimen during last inpatient admission. Restart fluoxetine 20mg PO daily. 08/25:Pt continues to report increased depression; pt stated, I'm feeling a little better today. The voices are less and the thoughts are self harm are decreasing Continues to report suicidal ideation and auditory hallucinations. denies HI/VH. Patient reports she is going to try to go to more groups today but being around people makes me anxious . Appears sedated during the day despite pt reporting sleeping well. DC Thorazine 100mg PO TID. Increase Abilify to 20mg PO daily. 08/26: Patient reports her anxiety has improved and her depression is a little better . She continues to report auditory hallucinations that are calling her names . denies SI/HI/VH. Patient denies any side effects from change in medications. Patient reports if she is not accepted to a substance abuse program, she will either stay with her father or go to a penitentiary in [place]. Per nursing, patient slept 8 hours. Continue current treatment plan. Patient educated on: diagnosis, medication risk/benefits and therapeutic strategies Reason for continued inpatient stay Substantial Risk for: med/psych decompensation Time Spent With Patient Time: Total time managing care of this patient today _20___ minutes.
[2024-08-26] MEDS: hydrOXYzine HCL 25 MG TABLET PO ×2 (15:48→22:56)
[2024-08-26] MEDS: Ondansetron ODT 8 MG TAB.RAPDIS TRANSLINGU (16:58)
[2024-08-26] MEDS: Ibuprofen 600 MG TABLET PO (19:15)
[2024-08-26 19:38] LABS: Basophils Percent Auto 0.7 % (0-2); Eosinophils Absolute Auto 0.2 X10*3/uL (0.0-0.4); Eosinophils Percent Auto 5.3 % (0-4); Hematocrit 31.5 % (37.0-47.0); Hemoglobin 9.9 g/dl (12.0-16.0); Imm Gran Abs Auto 0.08 X10*3/uL (0.00-0.03); Imm Gran Pct Auto 1.9 % (0.0-0.4); Lymphocytes Absolute Auto 1.6 X10*3/uL (1.2-4.9); Lymphocytes Percent Auto 37.7 % (20-40); MANUAL DIFF FLAG SCAN; Mean Corpuscular HGB Conc 31.4 g/dl (31.0-35.0); Mean Corpuscular Hemoglobin 22.9 pg (27.0-33.0); Mean Corpuscular Volume 72.7 fL (80.0-98.0); Mean Platelet Volume 11.2 fL (9.4-12.3); Monocytes Absolute Auto 0.4 X10*3/uL (0.1-1.2); Monocytes Percent Auto 8.5 % (2-11); Neutrophils Absolute Auto 1.9 x10*3/uL (2.0-8.3); Neutrophils Percent Auto 45.9 % (45-73); PLT CLUMP 1; Red Blood Count 4.33 X10*6/uL (4.20-5.50); Red Cell Distribution Width 14.8 % (11.0-16.0); SCAN SMEAR FLAG 1
[2024-08-26 19:46] LABS: Platelet Count 229 X10*3/uL (160-400); White Blood Count 4.1 X10*3/uL (4.8-10.8)
[2024-08-26 19:48] LABS: Alanine Aminotransferase 33 U/L (0-31); Albumin Level 3.3 g/dL (3.5-5.0); Alkaline Phosphatase 115 U/L (39-117); Anion Gap 9 (12-20); Aspartate Amino Transferase 33 U/L (5-31); Bilirubin Direct < 0.2 mg/dL (0.0-0.5); Bilirubin Total 0.2 mg/dL (0.0-1.0); Blood Urea Nitrogen 11 mg/dL (9-16); Calcium 8.8 mg/dL (8.4-10.2); Carbon Dioxide 26 mmol/L (22-29); Chloride 106 mmol/L (96-108); Creatinine Clr Calc Pharmacy 139.4; Estimated Glomerular Filt Rate > 60; Glucose Random 105 mg/dL (60-115); Potassium 4.4 mmol/L (3.3-5.1); Sodium 137 mmol/L (135-145); Total Protein 6.9 g/dL (6.5-8.0)
[2024-08-26 20:00] VITALS: BP 128/60; PULSE 97; RESP 18; TEMP 36.6; O2SAT 96
[2024-08-26 20:02] LABS: TSH reflex Free T4 3.14 uIU/mL (0.32-4.0)
[2024-08-26] MEDS: hydrOXYzine HCL 50 MG TABLET 100 MG PO (20:44)
[2024-08-26] MEDS: traZODone HCL 100 MG TABLET PO (20:48)
[2024-08-26 21:31] LABS: SLIDE REVIEW VERIFIED
[2024-08-27 07:40] VITALS: BP 115/63; PULSE 86; RESP 16; TEMP 36.9; O2SAT 97
[2024-08-27] MEDS: methADONE HCl 20 MG/2 ML ORAL.CONC 128 MG PO (08:05)
[2024-08-27] MEDS: Gabapentin 300 MG CAPSULE PO ×2 (08:30→20:46)
[2024-08-27] MEDS: ARIPiprazole 20 MG TABLET PO (08:30)
[2024-08-27] MEDS: FLUoxetine HCl 20 MG CAPSULE PO (08:31)
--- NOTE | 2024-08-27 09:30 | P.PNPSI_ITS ---
Subjective Subjective Date of Service: 08/27/24 Reason For Visit: CRISIS Subjective Notes: Conditional Voluntary Interim History: Patient reports feeling okay today; pt reports feeling better than when I first came here . denies SI/HI/VH. Continues to report auditory hallucinations but states they are quieter . Pt was accepted to [facility]; pt is looking forward to discharging and going to program. Ammonia level 66 on 08/26/24; Lactulose 40gm PO daily ordered. Pt reports she plans on following up with outpatient providers. Medication Compliance: Yes Side effects from medications: No Attending Groups: Intermittent Mental Status Exam Mental Status Exam Narrative: Pt is alert and oriented; behavior is cooperative and calm; dressed in casual attire; mood is described as okay ; eye contact appropriate; Speech is normal rate, volume and not pressured; thought process is organized; Thought content is on tx; denies SI/HI/VH. Pt reports auditory hallucinations are quieter . Diagnostics Vital Signs (24Hr): Vital Signs - 24 hr 08/26/24 20:00 08/27/24 07:40 Temperature 97.8 F 98.4 F Pulse Rate 97 86 Respiratory Rate 18 16 Blood Pressure 128/60 115/63 Pulse Oximetry 96 97 Oxygen Delivery Method Room Air Room Air BMI result Body Mass Index 40.1 Labs 08/26/24 19:13 08/26/24 19:13 Labs: Laboratory Results - last 48 hr 08/26/24 08/26/24 12:36 19:13 WBC 4.1 L RBC 4.33 Hgb 9.9 L Hct 31.5 L MCV 72.7 L MCH 22.9 L MCHC 31.4 RDW 14.8 Plt Count 229 MPV 11.2 Immature Gran % (Auto) 1.9 H Neut % (Auto) 45.9 Lymph % (Auto) 37.7 [place] % (Auto) 8.5 Eos % (Auto) 5.3 H Baso % (Auto) 0.7 Lymph # (Auto) 1.6 [place] # (Auto) 0.4 Eos # (Auto) 0.2 Baso # (Auto) 0.0 Abs Immat Gran (auto) 0.08 H Absolute Neuts (auto) 1.9 L Absolute Nucleated RBC 0.000 Nucleated RBC % (auto) 0.0 Smear Tech's Comments VERIFIED Sodium 137 Potassium 4.4 Chloride 106 Carbon Dioxide 26 Anion Gap 9 L BUN 11 Creatinine 0.70 Estim Creat Clear Calc 139.4 Estimated GFR > 60 Random Glucose 105 Calcium 8.8 Total Bilirubin 0.2 Direct Bilirubin < 0.2 AST 33 H ALT 33 H Alkaline Phosphatase 115 Ammonia 66 H Total Protein 6.9 Albumin 3.3 L TSH 3.14 Medications Medications Current Medications Acetaminophen (Acetaminophen 325 Mg Tablet) 650 mg PO Q6H PRN PRN Reason: Headache/Pain, Scale 1-3 Last Admin: 08/23/24 16:14 Dose: 650 mg Al Hydroxide/Mg Hydroxide (Magnesium Hydrox/Alum Hydrox 30 Ml Oral.Susp) 30 ml PO Q6H PRN PRN Reason: Heartburn/Nausea Aripiprazole (Aripiprazole 20 Mg Tablet) 20 mg PO DAILY [facility] [place] Last Admin: 08/27/24 08:30 Dose: 20 mg Benzocaine (Throat Lozenge, Medicated Lozenge) 1 lozenge MUCOUS MEM Q2H PRN PRN Reason: Sore Throat Last Admin: 08/25/24 08:26 Dose: 1 lozenge Fluoxetine HCl (Fluoxetine Hcl 20 Mg Capsule) 20 mg PO DAILY [facility] [place] Last Admin: 08/27/24 08:31 Dose: 20 mg Gabapentin (Gabapentin 300 Mg Capsule) 300 mg PO BID [facility] [place] Last Admin: 08/27/24 08:30 Dose: 300 mg Hydroxyzine HCl (Hydroxyzine Hcl 25 Mg Tablet) 25 mg PO Q6H PRN PRN Reason: mild anxiety Last Admin: 08/26/24 22:56 Dose: 25 mg Hydroxyzine HCl (Hydroxyzine Hcl 50 Mg Tablet) 100 mg PO BEDTIME PRN PRN Reason: Insomnia Last Admin: 08/26/24 20:44 Dose: 100 mg Ibuprofen (Ibuprofen 600 Mg Tablet) 600 mg PO Q8H PRN PRN Reason: Pain, Moderate(Pain Scale 4-6) Last Admin: 08/26/24 19:15 Dose: 600 mg Lorazepam (Lorazepam 0.5 Mg Tablet) 0.5 mg PO BID PRN PRN Reason: severe anxiety Last Admin: 08/26/24 19:15 Dose: 0.5 mg Magnesium Hydroxide (Milk Of Magnesia 30 Ml Oral.Susp) 30 ml PO DAILY PRN PRN Reason: Constipation Methadone HCl (Methadone Hcl 20 Mg/2 Ml Oral.Conc) 128 mg PO DAILY@0800 [facility] [place] Last Admin: 08/27/24 08:05 Dose: 128 mg Multi-Ingred Cream/Lotion/Oil/Oint (Mineral Oil/Petrolatum,White 106 Gm Tube) 1 appl TOPICAL BEDTIME [facility]; Protocol Last Admin: 08/26/24 20:55 Dose: Not Given Nicotine (Nicotine 21 Mg Patch.Td24) 21 mg TRANSDERMA DAILY PRN PRN Reason: Nicotine Cessation Last Admin: 08/25/24 08:26 Dose: 21 mg Nicotine Polacrilex (Nicotine Polacrilex Lozenge 4 Mg Lozenge) 4 mg BUCCAL Q2H PRN PRN Reason: Nicotine Cravings Ondansetron HCl (Ondansetron Odt 8 Mg Tab.Rapdis) 8 mg TRANSLINGU Q12H PRN PRN Reason: Nausea and Vomiting Last Admin: 08/26/24 16:58 Dose: 8 mg Trazodone HCl (Trazodone Hcl 100 Mg Tablet) 100 mg PO BEDTIME PRN PRN Reason: insomnia Last Admin: 08/26/24 20:48 Dose: 100 mg Allergies Allergies Allergy/AdvReac Type Severity Reaction Status Date / Time Penicillins [PENICILLINS] Allergy Unknown Hives Verified 08/15/24 19:31 haloperidol AdvReac Severe Anaphylaxis Verified 08/15/24 19:31 Assessment & Plan Assessment & Plan (1) MDD (major depressive disorder), recurrent episode, moderate: Status: Acute Code(s): F33.1 - Major depressive disorder, recurrent, moderate (2) PTSD (post-traumatic stress disorder): Status: Acute Code(s): F43.10 - Post-traumatic stress disorder, unspecified (3) Cellulitis of right wrist: Status: Acute Code(s): L03.113 - Cellulitis of right upper limb (4) Cocaine use disorder: Status: Acute Code(s): F14.10 - Cocaine abuse, uncomplicated (5) Homelessness: Status: Acute Code(s): Z59.00 - Homelessness unspecified Plan Patient is a 28-year-old female with history of MDD, PTSD, opiate use disorder, and cocaine use disorder who presented to [facility] via ambulance reporting she had been poisoned and poison in the vents secondary to substance use and medication noncompliance. Plan: CV 15 minute safety checks Wound consult for bilateral wrist abscess After review of hx of medication regimen: Start: Abilify 5mg PO daily Thorazine 50mg PO bedtime thorazine 25mg PO Q4HR PRN Gabapentin 300mg PO BID hydroxyzine 100mg PO bedtime PRN encourage groups referral to outpatient psychiatric providers referral to substance abuse program discharge planning 08/18: Laying in bed. keeping to self. pt continues to report increased depression and suicidal ideation. She reports auditory hallucinations of voices that just keep talking ; encouraged to utilize PRN medications. per nursing, slept 8 hours. focused on referral to substance abuse program. encouraged to attend groups. Increase abilify to 10mg PO daily. Hospitalist consult placed for bilateral wrist abscess. 08/19: Continues to lay in bed most of the day. Pt reports feeling tired because I haven't slept in days . pt continues to report feeling depressed and anxious ; requesting for increase in her medications and to be restarted on Ativan. pt continues to report suicidal ideation with no plan and auditory hallucinations. denies HI/VH. Increase Thorazine to 100mg PO bedtime. Start: Ativan 0.5mg PO daily PRN 08/20: Awake, alert, believes that someone from the outside is putting something in the vents to harm her. Increase Abilify to 15 mg daily, increase Chlorpromazine to 50 mg q4h prn and increase Lorazepam to 0.5 mg bid prn 08/21: Throat culture/SARS/Flu/covid negative. WBC decreased-?viral infection. Ear aches, sore throat. continue to monitor-Abilify may need to be decreased. Throat emily prn. Increase Trazodone to 100 mg HS prn, 08/22: Pt reports no change in sx, anxiety, paranoia. Not attending groups, howver, social with peers. Schedule chlorpromazine to 100 mg tid, DC prn chlorpromazine. Monitor for sedation. 08/23: Continues with intermittent AH, VH, passive SI. Denies thoughts to harm self or others. Med compliant, tolerating Thorazine TID. Complains related to teeth pain and skin lesions. Denies fever, chills, SOB, CP, n/v/d. 08/24: Pt continues to report increased depression and anxiety; she reports suicidal ideation. Pt stated, I'm sick of it. I'm tired of feeling this way. I want to cut my wrists . Pt continues to report auditory hallucinations but states they are not as loud ; +VH of shadows . Apologetic for not attending groups; states she is not feel well . discussed medication hx; pt reports positive effects from medication regimen during last inpatient admission. Restart fluoxetine 20mg PO daily. 08/25:Pt continues to report increased depression; pt stated, I'm feeling a little better today. The voices are less and the thoughts are self harm are decreasing Continues to report suicidal ideation and auditory hallucinations. denies HI/VH. Patient reports she is going to try to go to more groups today but being around people makes me anxious . Appears sedated during the day despite pt reporting sleeping well. DC Thorazine 100mg PO TID. Increase Abilify to 20mg PO daily. 08/26: Patient reports her anxiety has improved and her depression is a little better . She continues to report auditory hallucinations that are calling her names . denies SI/HI/VH. Patient denies any side effects from change in medications. Patient reports if she is not accepted to a substance abuse program, she will either stay with her father or go to a half-way in [place]. Per nursing, patient slept 8 hours. Continue current treatment plan. 08/27: Patient reports feeling okay today; pt reports feeling better than when I first came here . denies SI/HI/VH. Continues to report auditory hallucinations but states they are quieter . Pt was accepted to [facility]; pt is looking forward to discharging and going to program. Ammonia level 66 on 08/26/24; Lactulose 40gm PO daily ordered. Pt reports she plans on following up with outpatient providers. Patient educated on: diagnosis and medication risk/benefits Reason for continued inpatient stay Substantial Risk for: stable for discharge Time Spent With Patient Time: Total time managing care of this patient today __20__ minutes.
[2024-08-27 11:30] VITALS: BMI 41.8
[2024-08-27] MEDS: LORazepam 0.5 MG TABLET PO ×2 (11:58→23:24)
[2024-08-27] MEDS: hydrOXYzine HCL 25 MG TABLET PO (13:37)
[2024-08-27] MEDS: Ibuprofen 600 MG TABLET PO (16:32)
[2024-08-27] MEDS: Lactulose 20 GM/30 ML SOLUTION 40 GM PO (16:42)
[2024-08-27] MEDS: Ondansetron ODT 8 MG TAB.RAPDIS TRANSLINGU (17:07)
[2024-08-27 20:00] VITALS: BP 97/65; PULSE 85; RESP 18; TEMP 36.8; O2SAT 94
[2024-08-27] MEDS: Mineral Oil/Petrolatum,White 106 GM Tube 1 APPL TOPICAL (20:45)
[2024-08-27] MEDS: hydrOXYzine HCL 50 MG TABLET 100 MG PO (20:46)
[2024-08-27] MEDS: traZODone HCL 100 MG TABLET PO (20:47)
[2024-08-28] MEDS: LORazepam 0.5 MG TABLET PO (04:59)
[2024-08-28] MEDS: methADONE HCl 20 MG/2 ML ORAL.CONC 128 MG PO (07:59)
[2024-08-28] MEDS: ARIPiprazole 20 MG TABLET PO (08:23)
[2024-08-28] MEDS: Naloxone HCl Nasal TAKE HOME 4 MG SPRAY 8 MG NOSTRILALT (08:23)
[2024-08-28] MEDS: FLUoxetine HCl 20 MG CAPSULE PO (08:23)
[2024-08-28] MEDS: Lactulose 20 GM/30 ML SOLUTION 40 GM PO (08:24)
[2024-08-28] MEDS: Gabapentin 300 MG CAPSULE PO (08:24)
--- NOTE | 2024-08-28 08:39 | P.DS_ITS ---
DS: Providers Provider Date of Service: 08/28/24 Date of admission: 08/17/24 13:12 Date of discharge: 08/28/24 Primary care physician: Unknown Physician Admitting clinician: Mary Alice Barboza Attending physician on admission: Jj Hollingsworth Consults: 08/17/24 15:49 Consult to Wound Care Routine Reason for consultation: abscess bilateral wrists. 08/18/24 10:12 Consult to Hospitalist Routine Comment: Consulting Provider: [facility] Hospitalists Reason For Exam: bilateral wrist abscess Attending physician on discharge: Jj Hollingsworth Discharging clinician: Mary Alice Barboza DS: Diagnosis Discharge Diagnosis (1) MDD (major depressive disorder), recurrent episode, moderate: Status: Acute (2) PTSD (post-traumatic stress disorder): Status: Acute (3) Cellulitis of right wrist: Status: Acute (4) Cocaine use disorder: Status: Acute (5) Homelessness: Status: Acute DS: Medications Discharge Medications Home Medications: Home Medications ?Medication ?Instructions ?Recorded ?Confirmed methadone 10 mg/mL oral 128 mg PO DAILY 10/30/23 08/16/24 concentrate (Methadone Intensol) Previous Rx's ?Medication ?Instructions ?Recorded aripiprazole 20 mg tablet (Abilify) 20 mg PO DAILY 30 days #30 tabs 08/27/24 fluoxetine 20 mg capsule 20 mg PO DAILY 30 days #30 caps 08/27/24 gabapentin 300 mg capsule 300 mg PO TID 30 days #90 caps 08/27/24 lactulose 10 gram/15 mL oral 40 g (60 mL) PO DAILY 14 days #840 08/27/24 solution mL lorazepam 0.5 mg tablet 0.5 mg PO BID PRN severe anxiety 7 08/27/24 days #14 tabs nicotine 21 mg/24 hr daily 21 mg transdermal DAILY PRN 08/27/24 transdermal patch Nicotine Cravings 28 days #28 ea trazodone 100 mg tablet 100 mg PO BEDTIME PRN insomnia 30 08/27/24 days #30 tabs white petrolatum-mineral oil 1 appl topical BEDTIME 30 days 08/27/24 topical cream (Dermacerin topical #454 grams cream) Mental Status Exam Mental Status Exam Narrative: Pt is alert and oriented; behavior is cooperative and calm; dressed in casual attire; mood is described as good ; eye contact appropriate; Speech is normal rate, volume and not pressured; thought process is organized; Thought content is on tx; denies SI/HI/VH. Pt reports auditory hallucinations are quieter . Data Data Completed and Pending Completed studies during hospitalization [Text1]: 08/21/24 08/21/24 08/26/24 08:43 17:40 12:36 WBC 3.5 L RBC 4.59 Hgb 10.5 L Hct 34.6 L MCV 75.4 L MCH 22.9 L MCHC 30.3 L RDW 15.0 Plt Count 238 D MPV 11.3 Immature Gran % (Auto) 0.3 Neut % (Auto) 44.9 L Lymph % (Auto) 40.1 H Pershing % (Auto) 7.5 Eos % (Auto) 6.3 H Baso % (Auto) 0.9 Lymph # (Auto) 1.4 Pershing # (Auto) 0.3 Eos # (Auto) 0.2 Baso # (Auto) 0.0 Abs Immat Gran (auto) 0.01 Absolute Neuts (auto) 1.6 L Absolute Nucleated RBC 0.000 Nucleated RBC % (auto) 0.0 Smear Tech's Comments ESR 30 H Sodium 139 Potassium 4.2 Chloride 106 Carbon Dioxide 28 Anion Gap 9 L BUN 11 Creatinine 0.71 Estim Creat Clear Calc 137.4 Estimated GFR > 60 Random Glucose 105 Estimat Average Glucose 105 Hemoglobin A1c % 5.3 Calcium 8.9 Total Bilirubin 0.2 Direct Bilirubin AST 35 H ALT 28 Alkaline Phosphatase 104 Ammonia 66 H C-Reactive Protein 0.36 Total Protein 7.2 Albumin 3.5 Triglycerides 183 H Cholesterol 147 LDL Cholesterol, Calc 74 HDL Cholesterol 37 L TSH Influenza Type A (PCR) NEGATIVE Influenza Type B (PCR) NEGATIVE RSV RNA Qual (PCR) NEGATIVE SARS-CoV-2 RNA (RT-PCR) NEGATIVE S. pyogenes GrpA THEA Negative 08/26/24 19:13 WBC 4.1 L RBC 4.33 Hgb 9.9 L Hct 31.5 L MCV 72.7 L MCH 22.9 L MCHC 31.4 RDW 14.8 Plt Count 229 MPV 11.2 Immature Gran % (Auto) 1.9 H Neut % (Auto) 45.9 Lymph % (Auto) 37.7 Pershing % (Auto) 8.5 Eos % (Auto) 5.3 H Baso % (Auto) 0.7 Lymph # (Auto) 1.6 Pershing # (Auto) 0.4 Eos # (Auto) 0.2 Baso # (Auto) 0.0 Abs Immat Gran (auto) 0.08 H Absolute Neuts (auto) 1.9 L Absolute Nucleated RBC 0.000 Nucleated RBC % (auto) 0.0 Smear Tech's Comments VERIFIED ESR Sodium 137 Potassium 4.4 Chloride 106 Carbon Dioxide 26 Anion Gap 9 L BUN 11 Creatinine 0.70 Estim Creat Clear Calc 139.4 Estimated GFR > 60 Random Glucose 105 Estimat Average Glucose Hemoglobin A1c % Calcium 8.8 Total Bilirubin 0.2 Direct Bilirubin < 0.2 AST 33 H ALT 33 H Alkaline Phosphatase 115 Ammonia C-Reactive Protein Total Protein 6.9 Albumin 3.3 L Triglycerides Cholesterol LDL Cholesterol, Calc HDL Cholesterol TSH 3.14 Influenza Type A (PCR) Influenza Type B (PCR) RSV RNA Qual (PCR) SARS-CoV-2 RNA (RT-PCR) S. pyogenes GrpA THEA DS: Summary Hospital Course Hospital Course: Patient is a 28-year-old female with history of MDD, PTSD, opiate use disorder, and cocaine use disorder who presented to [facility] via ambulance reporting she had been poisoned and poison in the vents secondary to substance use and medication noncompliance. Per crisis report, pt required physical and chemical restraints upon arrival to ED due to agitation.Patient reports she was using substances and could not breathe so she called 911 . Patient reports increased depression and feeling like she is going crazy . Patient reports that she has been using crack cocaine and opiates IV. She reports suicidal ideation with plan to hang herself. Patient reports auditory hallucinations telling her to harm herself. denies any current sleep or appetite disturbances. denies HI/VH. Patient has a history of homelessness and chronic substance use. Patient does not have outpatient psychiatric providers at this time. History of multiple inpatient psychiatric hospitalizations. History of multiple detox admissions. Utox positive for opiates, methadone, fentanyl, and cocaine. During admission assessment, patient presents alert and oriented x3. Calm and cooperative. Patient reports feeling anxious and depressed ; patient stated, I'm seeing things and hearing things. I've been using heroin and cocaine everyday for the past few months. I want to get into a substance abuse program . Patient reports suicidal ideation with no plan. She reports auditory hallucinations but did not go into detail. Denies HI/ VH. Patient reports her medication regimen from her last hospitalization on M3 was helpful. She reports she has not been medication compliant for at least 4 months . denies any issues with appetite or sleep. She is requesting for her medications to be restarted. Plan: CV 15 minute safety checks Wound consult for bilateral wrist abscess After review of hx of medication regimen: Start: Abilify 5mg PO daily Thorazine 50mg PO bedtime thorazine 25mg PO Q4HR PRN Gabapentin 300mg PO BID hydroxyzine 100mg PO bedtime PRN encourage groups referral to outpatient psychiatric providers referral to substance abuse program discharge planning Laying in bed. keeping to self. pt continues to report increased depression and suicidal ideation. She reports auditory hallucinations of voices that just keep talking ; encouraged to utilize PRN medications. per nursing, slept 8 hours. focused on referral to substance abuse program. encouraged to attend groups. Increase abilify to 10mg PO daily. Hospitalist consult placed for bilateral wrist abscess. Continues to lay in bed most of the day. Pt reports feeling tired because I haven't slept in days . pt continues to report feeling depressed and anxious ; requesting for increase in her medications and to be restarted on Ativan. pt continues to report suicidal ideation with no plan and auditory hallucinations. denies HI/VH. Increase Thorazine to 100mg PO bedtime. Start: Ativan 0.5mg PO daily PRN Awake, alert, believes that someone from the outside is putting something in the vents to harm her. Increase Abilify to 15 mg daily, increase Chlorpromazine to 50 mg q4h prn and increase Lorazepam to 0.5 mg bid prn Throat culture/SARS/Flu/covid negative. WBC decreased-?viral infection. Ear aches, sore throat. continue to monitor-Abilify may need to be decreased. Throat emily prn. Increase Trazodone to 100 mg HS prn, Pt reports no change in sx, anxiety, paranoia. Not attending groups, howver, social with peers. Schedule chlorpromazine to 100 mg tid, DC prn chlorpromazine. Monitor for sedation. Continues with intermittent AH, VH, passive SI. Denies thoughts to harm self or others. Med compliant, tolerating Thorazine TID. Complains related to teeth pain and skin lesions. Denies fever, chills, SOB, CP, n/v/d. Pt continues to report increased depression and anxiety; she reports suicidal ideation. Pt stated, I'm sick of it. I'm tired of feeling this way. I want to cut my wrists . Pt continues to report auditory hallucinations but states they are not as loud ; +VH of shadows . Apologetic for not attending groups; states she is not feel well . discussed medication hx; pt reports positive effects from medication regimen during last inpatient admission. Restart fluoxetine 20mg PO daily. Pt continues to report increased depression; pt stated, I'm feeling a little better today. The voices are less and the thoughts are self harm are decreasing Continues to report suicidal ideation and auditory hallucinations. denies HI/VH. Patient reports she is going to try to go to more groups today but being around people makes me anxious . Appears sedated during the day despite pt reporting sleeping well. DC Thorazine 100mg PO TID. Increase Abilify to 20mg PO daily. Patient reports her anxiety has improved and her depression is a little better . She continues to report auditory hallucinations that are calling her names . denies SI/HI/VH. Patient denies any side effects from change in medications. Patient reports if she is not accepted to a substance abuse program, she will either stay with her father or go to a half-way in [place]. Per nursing, patient slept 8 hours. Continue current treatment plan. Patient reports feeling okay today; pt reports feeling better than when I first came here . denies SI/HI/VH. Continues to report auditory hallucinations but states they are quieter . Pt was accepted to [facility]; pt is looking forward to discharging and going to program. Ammonia level 66 on 08/26/24; Lactulose 40gm PO daily ordered. Pt reports she plans on following up with outpatient providers. Status at Discharge Cognitive/behavioral status at discharge: Patient has insight and demonstrates good judgment in terms of wanting to pursue treatment. Patient has a safety plan that includes presenting to the closest ER or calling 911 if feeling unsafe. Functional status at discharge: independent ambulation Overall status at discharge: patient is back to baseline Time Spent with Patient Time attestation: Total time managing care of this patient today _20___ minutes. Time spent: Less than 30 minutes Discharge Plan Discharge Anticipated Discharge Date/Time: 08/28/24 09:00 Patient Disposition: Home, Self-Care Discharge Diagnosis: MDD w/psychotic features, PTSD, cocaine use d/o, opioid use d/o, alcohol use d/o Referrals: [facility] [Provider Group] - 1 Week (walk in hours mon through fri [id number]) Discharge Medications: New Dermacerin Cream 1 appl topical BEDTIME 30 Days Qty: 454 0RF Protocol: Apply to: Apply to: feet lactulose 10 gram/15 mL Solution 40 g PO DAILY 14 Days Qty: 840 0RF trazodone 100 mg Tablet 100 mg PO BEDTIME PRN (Reason: insomnia) 30 Days Qty: 30 0RF lorazepam 0.5 mg Tablet 0.5 mg PO BID PRN (Reason: severe anxiety) 7 Days Qty: 14 2RF fluoxetine 20 mg Capsule 20 mg PO DAILY 30 Days Qty: 30 0RF aripiprazole [Abilify] 20 mg Tablet 20 mg PO DAILY 30 Days Qty: 30 0RF Continued methadone [Methadone Intensol] 10 mg/mL Concentrate 128 mg PO DAILY Patient Comments: Last dose verified from [facility] administration sheet Rx Instructions: [facility] [phone] nicotine 21 mg/24 hr patch 24 hour 21 mg transdermal DAILY PRN (Reason: Nicotine Cravings) 28 Days Qty: 28 0RF gabapentin 300 mg capsule 300 mg PO TID 30 Days Qty: 90 0RF Discontinued nicotine (polacrilex) 4 mg Lozenge 4 mg buccal Q2H PRN (Reason: Nicotine Cravings) 30 Days Qty: 108 0RF benztropine 0.5 mg tablet 0.5 mg PO DAILY Discharge Orders: Discharge Order (Routine); Ordered 08/28/24 Ordered By: Mary Alice Barboza Diet: Regular diet Activity on Discharge: As tolerated Stand Alone Forms: Patient Portal Discharge page, Community Support Print Language: Palauan Care Plan Goals: Maintain mood and safe behaviors Take medications as prescribed Continue to pursue sobriety Practice coping skills Continue with outpatient providers and reach out to them as needed Health Concerns: Mood stability and behaviors Sobriety Follow up with outpatient providers regarding monitoring labs and ammonia level Plan of Treatment: Follow up with your PCP, psychiatric provider and other outpatient providers regarding above concerns Take medications as prescribed Assessment: Patient has insight and demonstrates good judgment in terms of wanting to pursue treatment. Patient has a safety plan that includes presenting to the closest ER or calling 911 if feeling unsafe. Discharge Date/Time: 08/28/24 09:53
[2024-08-28] MEDS: Ondansetron ODT 8 MG TAB.RAPDIS TRANSLINGU (09:12)
== END 2024-08-28 09:53 | disposition home or self-care (01) | DRG 751 ==
LOC: HO.ED 08-16 02:47 → HO.PADLT16 08-17 13:24
PROVIDERS: Clinical Nurse Specialist Psychiatric/Mental Health, Adult; Physician Assistant; Admitting Provider Registered Nurse; Emergency Provider Emergency Medicine; Responsible Provider Registered Nurse; Visit Provider Psychiatry & Neurology Psychiatry
DX: F32.3 Major depressive disorder, single episode, severe with psychotic features (principal); F11.20 Opioid dependence, uncomplicated; F14.10 Cocaine abuse, uncomplicated; F43.10 Post-traumatic stress disorder, unspecified; L03.113 Cellulitis of right upper limb; Z20.822 Contact with and (suspected) exposure to COVID-19; Z59.02 Unsheltered homelessness; Z87.891 Personal history of nicotine dependence; Z79.899 Other long term (current) drug therapy
CPT/HCPCS: 0241U; 36415; 80048; 80053; 80061; 80076; 80307; 82140; 83036; 84443; 85025; 85652; 86140; 87651; 93005; 99285; J1200; J2060; J2359; S9485

== ENCOUNTER → 2024-08-17 09:53 | Outpatient (BNV) | payer OTHER, SELFPAY | PROVIDERS: Admitting Provider Registered Nurse; Emergency Provider Emergency Medicine; Visit Provider Internal Medicine | DX: R94.31 Abnormal electrocardiogram [ECG] [EKG] (principal); Z13.6 Encounter for screening for cardiovascular disorders | CPT/HCPCS: 93010 ==

== ENCOUNTER 2024-08-17 13:12 | Outpatient (BNV) | payer OTHER, SELFPAY | END 2024-08-25 16:20 | PROVIDERS: Admitting Provider Registered Nurse; Emergency Provider Emergency Medicine; Responsible Provider Registered Nurse; Visit Provider Internal Medicine Cardiovascular Disease | DX: Z13.6 Encounter for screening for cardiovascular disorders (principal) | CPT/HCPCS: 93010 ==

== ENCOUNTER → 2024-08-17 13:12 | Outpatient (BNV) | payer OTHER, SELFPAY | PROVIDERS: Admitting Provider Registered Nurse; Emergency Provider Emergency Medicine; Responsible Provider Registered Nurse; Visit Provider Physician Assistant | DX: L03.113 Cellulitis of right upper limb (principal) | CPT/HCPCS: 99222 ==

== ENCOUNTER → 2024-08-17 13:12 | Outpatient (BNV) | payer OTHER, SELFPAY | PROVIDERS: Admitting Provider Registered Nurse; Emergency Provider Emergency Medicine; Responsible Provider Registered Nurse; Visit Provider Registered Nurse | DX: F33.1 Major depressive disorder, recurrent, moderate (principal); F43.11 Post-traumatic stress disorder, acute; F14.10 Cocaine abuse, uncomplicated; L03.113 Cellulitis of right upper limb; Z59.00 Homelessness unspecified | CPT/HCPCS: 90792; 99231; 99232; 99238 ==

== ENCOUNTER 2025-01-12 08:03 | Outpatient (AMB) | payer MEDICAID, SELFPAY ==
--- NOTE | 2025-01-12 08:06 | AM.OFFWIN_ITS ---
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 Patient states that she has pain overlying her left upper molars that is worsened with mastication. Patient states that her symptoms have been present for the past 2 days and she reports subjective fevers. Patient is not taking any medication for treatment of her discomfort. Patient does have a dentist in [place] however has not been able to reach her dentist for further evaluation and care. Patient denies having any difficulty swallowing or managing secretions. [facility] Medical History Mood disorder Substance induced mood disorder Drug-induced psychotic disorder Asthma Social History Household Members: None Household Members Other:: Homeless Housing: Homeless Housing Other:: Homeless living w/ cousins Do you presently have visiting nurse or other home services: No Unable to assess alcohol history related to: Refusing to respond Alcohol intake: current Alcohol intake frequency: a few times a week Comment: bed 1 Patient Tobacco Use Status: Former Tobacco user Tobacco use type: Cigarette Cigarette Packs Per Day: 0 Cigarettes Per Day: 8 Years Smoked: 10 e-Cigarette/Vaping Use: Currently Using Second Hand Smoke Exposure: No Substance Use Type: Crack/Cocaine and Heroin Advance Directives Date on File: 03/05/22 service: No Sexual orientation: Straight/Heterosexual Review of Systems Const All systems reviewed & are unremarkable except as noted in HPI and below Denies chills, Reports fever(s) (subjective feel hot sometimes ) and Denies headache(s) Eyes Reports no additional complaints ENT Denies otalgia, Denies facial pain, Denies headache(s), Reports mouth lesions, Reports mouth pain and Denies odynophagia Card Reports no additional complaints Resp Reports no additional complaints GI Denies odynophagia Neuro Reports no additional complaints and Denies headache(s) Psych Reports no additional complaints Endo Reports no additional complaints Santi/Lymph Reports no additional complaints Aller/Immun Reports no additional complaints Physical Exam Vital Signs: Last Vital Signs Temp 98.5 F 01/12/25 08:07 Pulse 65 01/12/25 08:07 BP 102/64 01/12/25 08:07 Pulse Ox 98 01/12/25 08:07 Oxygen Delivery Method Room Air 01/12/25 08:07 BMI result Body Mass Index 48.7 Patient is afebrile. Const General: cooperative, healthy appearing, comfortable, well developed, alert, awake and Physically active Nutritional Appearance: overweight Orientation/consciousness: patient oriented x3 Limitations: no limitations HEENT Other: There is erythema and edema of the gingiva overlying the left upper molars on the buccal aspect that is tender to direct palpation, no drainable lesions or fluctuance; patient managing secretions independently. Head: Yes normal to inspection and Yes normocephalic Face and sinus: Yes normal facial exam, Yes face symmetric, No erythema, No edema, No fluctuance and No Facial tenderness on exam of face and sinuses Mouth: abnormal oral mucosae, oropharynx normal, moist mucous membranes, no drooling and normal lip Teeth and gingiva: abnormal dentition (poor dentition with necrosis, hypodontia, gingival erythema) and poor dentition Throat: Yes posterior oropharynx normal, Yes uvula midline and No peritonsillar mass Eyes General: appearance normal, both eyes and all related structures Neuro General: patient oriented x3 Psych Appearance: grossly normal Mental Status: mental status grossly normal Insight: Good insight present (Psych) Judgement: Good judgement present (Psych) Assessment & Plan Assessment & Plan (1) Dental abscess: Comment: Patient's history coupled with her examination is consistent with an evolving dental abscess. Patient will be discharged home with dual antibiotic therapy and acetaminophen. Patient is instructed to call her dentist today or go to their office directly to schedule outpatient follow up. Code(s): K04.7 - Periapical abscess without sinus Plan: Cefpodoxime and Flagyl antibiotic therapy as prescribed, Tylenol as needed for discomfort, dental follow up is recommended for a therapeutic outcome. Medications: New cefpodoxime must administer with a meal/food 200 mg PO Q12H 14 tabs 0RF metronidazole 500 mg PO Q8H 21 tabs 0RF acetaminophen 1,000 mg (2 x 500 mg) PO Q6-8H PRN 20 caps 0RF pain Discontinued 2 white petrolatum-mineral oil (Dermacerin (petrolatum-mineral oil) topical cream) Discontinued Reason: Patient Completed Course 1 appl See Protocol topical BEDTIME 30 days 454 grams 0RF nicotine Discontinued Reason: Patient Completed Course 21 mg transdermal DAILY 28 days PRN 28 ea 0RF Nicotine Cravings lactulose Discontinued Reason: Patient Completed Course 40 grams (60 mL) PO DAILY 14 days 840 mL 0RF Coding Level of Care Code Est Pt Level 3 (02935) Diagnoses Dental abscess K04.7 Time Spent (min) 20
[2025-01-12 08:07] VITALS: BP 102/64; PULSE 65; TEMP 36.9; O2SAT 98; BMI 48.7
--- OUTSIDE RECORDS SUMMARY | 2025-01-12 08:07 | XMS_ITS | Clinical Summary ---
Author Organization [address] [facility], later [facility] Building Address [address] [place] [phone] Phone Care Team Providers Care Nnp Name Role Phone Andrey Pack MD Primary Care Provider [phone] Allergies Active Allergy Reactions Criticality Noted Date Comments Haloperidol Anaphylaxis High 03/23/2024 Penicillin Rash 04/08/2024 Tolerates cefepimedenies difficult breathing or throat closinghives Penicillins Anaphylaxis High 06/05/2016 Trazodone Hcl 05/01/2022 Gives pt nightmares Medications FLUoxetine (PROzac) 10 mg capsule Take 4 Capsules by mouth daily. 05/21/2023 Active methadone (DOLOPHINE) 10 mg tablet Take 78 mg by mouth 1 (one) time each day. Active famotidine (PEPCID) 10 mg tablet Take 1 tablet (10 mg total) by mouth. 03/10/2024 Active clonazePAM (KlonoPIN) 1 mg tablet Take 1 tablet (1 mg total) by mouth 2 (two) times a day. Max Daily Amount: 2 mg 09/09/2024 Active traZODone (DESYREL) 100 mg tablet Take 1 tablet (100 mg total) by mouth at bedtime. 09/07/2024 Active FLUoxetine (PROzac) 20 mg capsule Take 1 capsule (20 mg total) by mouth 1 (one) time each day. 09/07/2024 Active ARIPiprazole (ABILIFY) 10 mg tablet Take 1 tablet (10 mg total) by mouth 1 (one) time each day. Active ferrous gluconate (FERGON) 324 mg (38 mg iron) tablet Take 1 tablet (324 mg total) by mouth 1 (one) time each day. 30 each 10/15/2024 10/16/19 Active gabapentin (NEURONTIN) 300 mg capsuleIndicati ons:Neuropathy Take 1 capsule (300 mg total) by mouth 3 (three) times a day. 270 capsule 1 11/02/2024 Active atomoxetine (STRATTERA) 40 mg capsule 11/23/2024 Active Active Problems Problem Noted Date Diagnosed Date Iron deficiency anemia secon lam to inadequate dietary iron intake 11/24/2024 Asthma 04/08/2024 Bacteremia 04/08/2024 Constipation 04/08/2024 Severe obesity (CMS/[facility] V24, [facility] V28) 2023 Anxiety 03/03/2024 Depression 03/03/2024 Joint pain 03/03/2024 Subclinical hypothyroidism 05/16/2023 Therapeutic opioid-induced constipation (OIC) Chronic hepatitis C without hepatic coma ([facility] V24, [facility] V28) 06/05/2016 Chronic pain 06/05/2016 Polysubstance dependence ([facility] V24, [facility] V 28) 06/05/2016 Overview (03/03/2024): Started suboxone program, [facility] program 2020 Encounters Date Type Department Care Team Description 11/25/2024 12:55 PM EDT - 11/25/2024 11:59 PM EDT Hospital Encounter CT Scan - [address] [phone] Common bile duct dilation; Hepatomegaly Discharge Disposition: Home or Self Care 11/24/2024 3:30 PM EDT Office Visit Internal Medicine - [facility] [address] [place] [phone] Andrey Pack MD Follow-up exam (Primary Dx); Iron deficiency anemia secondary to inadequate dietary iron intake; Fatty liver 11/11/2024 8:35 AM EDT - 11/11/2024 11:59 PM EDT Hospital Encounter Ultrasound - [facility] [address] [place] [address] Elevated serum GGT level Discharge Disposition: Home or Self Care 11/06/2024 Telephone Internal Medicine - [facility] [address] [place] [phone] Andrey Pack MD 10/22/2024 Telephone Infectious Disease - [address] [place] [phone] Carolyne aCm RN 10/20/2024 Telephone Internal Medicine - [address] [phone] Andrey Pack MD 10/19/2024 Telephone Internal Medicine - [address] [phone] Mercy Guerrero MA from Last 3 Months Immunizations Name Administration Dates Next Due HPV, Quadrivalent 04/25/2007 Hep B, Unspecified 02/01/1994,1993 Hepatitis A Adult (Havrix; Vaqta) 19yo and older 11/25/2015 Hepatitis B (Kkagder-S-Oucye , Recombivax HB-Adult) 19yo and older 11/25/2015 Hepatitis B Pediatric (Enger ix B; Recombivax HB) to less than 20 yo 02/01/1994,1993 Influenza trivalent, 0.5mL, preservative free (Fluarix; FluLaval; Fluzone) ages 6mo and older (Afluria) 3 years and older 06/05/2016 Influenza trivalent, with pr eservative (Fluzone; Afluria) 6mo and older 06/05/2016,04/07/2007 Meningococcal, Unspecified 04/25/2007 PPD Test 11/12/2015 Pneumococcal polysaccharide 23 valent (Pneumovax 23) 2yo and older 07/07/2015 Tdap Tetanus diptheria acell ular pertussis (Boostrix; Adacel) 7yo and older 02/12/2017 Varicella live (Varivax) 12mo and older 04/25/20 07 Surgical History Surgery Date Site/Laterality Comments OTHER SURGICAL HISTORY PROCEDURE: DENIES PREVIOUS SURGERY Medical History Medical History Date Comments Depression DX:Depression; C OMMENT: PTSD Anxiety DX:Anxiety Joint pain DX:Joint pain Polysubstance dependence in early, early partial, sustained full, or sustained partial remission (CMS/HCC) 06/05/2016 DX:Polysubstance dependence in early, early partial, sustained full, or sustained partial remission (HCC) Chronic pain 06/05/2016 DX:Chronic pain Chronic hepatitis C without hepatic coma (CMS/HCC V24, CMS/HCC V28) 06/05/2016 DX:Chronic hepatitis C without hepatic coma (HCC) History of herpes genitalis 07/02/2016 DX:H istory of herpes genitalis History of syphilis 07/02/2016 DX:History o f syphilis Family History Medical History Relation Name Comments Breast cancer Aunt 1 maternal, 40s Colon cancer Aunt 2 paternal Other: fibromyalg Grandparent GM unspeci fied COPD Maternal Grandmother CAD Other: Other Mother Cardiac issues Coronary artery disease Paternal Grandfather Relation Name Status Comments Aunt 1 Aunt 2 Father Alive Grandparent Maternal Grandmother Mother Paternal Grandfather Social History Tobacco Use Types Packs/Day Years Used Date Smoking Tobacco: Every Day Smokeless Tobacco: Never Comments:vape Alcohol Use Standard Drinks/Week Comments Yes 0 (1 standard drink = 0.6 oz pur e alcohol) Comments No Sex and Gender Information Value Date Recorded Sex Assigned at Female 08/08/2024 8:40 AM EDT Legal Sex Female 9:23 PM EST Gender Identity Female 08/08/2024 8:40 AM EDT Sexual Orientation Choose not to disclose 2024 8:40 AM EDT Obstetrics History Last Filed Vital Signs Vital Sign Reading Time Taken Comments Blood Pressure 117/87 11/24/2024 2:45 PM EDT Pulse 98 11/24/2024 2:45 PM EDT Temperature 36.9 C (98.4 F) 08/14/2024 5:06 PM EDT Respiratory Rate 18 08/14/2024 5:06 PM EDT Oxygen Saturation 98% 08/14/2024 5:06 PM EDT Inhaled Oxygen Concentration - - Weight 125 kg (275 lb 3.2 oz) 11/24/2024 2:45 PM EDT Height 162.6 cm (5' 4 ) 11/24/2024 2:45 PM EDT Body Mass Index 47.24 11/24/2024 2:45 PM EDT Plan of Treatment Upcoming Encounters Date Type Department Care Team (Late st Contact Info) Description 01/12/2025 10:30 AM EDT Consult Bariatric Surgery - [place] [address] [place] [address] Allison Truong PA [address] [place] [phone] Health Maintenance Due Date Last Done Comments Pneumococcal Vaccine: Pediatrics (0 to 5 Years) and At-Risk Patients (6 to 49 Years) (2 of 2 - PCV) 07/07/2016 07/07/2015 Cervical Cancer Screening: Pap Smear 01/05/2020 01/04/2017, 01/04/2017 Social Influencers of Health Screening 04/21/2022 COVID-19 Vaccine ( - season) 2024 08/02/2021 Depression Screening 05/20/2024 06/25/2023 Influenza Vaccine (#1) 2025 7, 06/05/2016, 04/07/2007 DTaP,Tdap,and Td Vaccines (2 - Td or Tdap) 02/12/2027 02/12/2017 Cholesterol Screening (Lipid Panel) 05/14/2028 05/14/2023 Meningococcal ACWY Vaccine Aged Out 04/25/2007 N o longer eligible based on patient's age to complete this topic Varicella Vaccines Aged Out 04/25/2007 No longer eligible based on patient's age to complete this topic Hepatitis A Vaccines Aged Out 11/25/2015 No long er eligible based on patient's age to complete this topic HPV Vaccines Completed 04/09/2017, 04/25/2007 Hepatitis B Vaccines Completed 04/09/2017, 11/25/2015, 02/01/1994, Additional history exists MMR Vaccines Aged Out 04/09/2017 No longer eligi ble based on patient's age to complete this topic HIV Screening Completed 12/10/2018 Hepatitis C Screening Completed 11/16/2024 , 11/11/2024, 10/15/2024 HIB Vaccines Aged Out No longer eligi ble based on patient's age to complete this topic IPV Vaccines Aged Out No longer eligi ble based on patient's age to complete this topic Meningococcal B Vaccine Aged Out No l onger eligible based on patient's age to complete this topic RSV Immunization Patients Under 20 months Aged Out No longer eligible based on patient's age to complete this topic Procedures Procedure Name Priority Date/Time Associated Diagnosis Comments CT ABDOMEN WO CONTRAST Routine 11/25/2024 1:12 PM EDT Common bile duct dilation Hepatomegaly HEPATITIS C VIRUS QUANTITATIVE PCR Routine 11/16/2024 4:24 PM EDT Hepatitis C antibody test positive AST, ALT, BILIRUBIN ELR STATE REPORTABLES Routine 11/11/2024 9:28 AM EDT Hepatitis C antibody test positive HEPATITIS C ANTIBODY Routine 11/11/2024 9:28 AM EDT Hepatitis C antibody test positive US ABDOMEN LIMITED Routine 11/11/2024 9: 14 AM EDT Elevated serum GGT level AST, ALT, BILIRUBIN ELR STATE REPORTABLES Routine 10/15/2024 9:04 AM EDT Elevated alkaline phosphatase level Screen for STD (sexually transmitted disease) CBC WITH AUTO DIFFERENTIAL Routine 10/15/2024 9:04 AM EDT Low hemoglobin HEPATITIS PANEL, ACUTE WITH REFLEX TO CONFIRMATION Routine 10/15/2024 9:04 AM EDT Elevated alkaline phosphatase level Screen for STD (sexually transmitted disease) CBC AND DIFFERENTIAL Routine 10/15/2024 9:04 AM EDT Low hemoglobin FERRITIN Routine 10/15/2024 9:04 AM EDT Low hemoglobin IRON AND TIBC Routine 10/15/2024 9:04 AM EDT Low hemoglobin ALKALINE PHOSPHATASE Routine 10/15/2024 9:04 AM EDT Elevated alkaline phosphatase level GAMMA GLUTAMYL TRANSFERASE Routine 10/15/2024 9:04 AM EDT Elevated alkaline phosphatase level HM DEPRESSION SCREENING Routine 06/25/2023 LIPID PANEL Routine 05/14/2023 HIV SCREENING Routine 12/10/2018 HPV Routine 01/04/2017 from Last 3 Months or Most Recently Relevant to Health Maintenance Results * CT Abdomen wo Contrast (11/25/2024 1:12 PM EDT) Anatomical Region Laterality Modality Body Computed Tomogra phy 11/25/2024 2:18 PM EDT Impressions 11/25/2024 2:26 PM EDT Mild hepatomegaly. Possible constipation. Otherwise, unremarkable exam. -------- FINAL REPORT -------- Dictated By: Katty Flores Dictated Date: 11/25/2024 14:18 ET Assigned Physician: Katty Flores Reviewed and Electronically Signed By: Katty Flores Signed Date: 11/25/2024 14:26 ET Workstation ID: [id number] Transcribed By: Self Edit Transcribed Date: 11/25/2024 14:18 ET Narrative 11/25/2024 2:[address] ABDOMEN AND PELVIS WITHOUT CONTRAST HISTORY: Right upper quadrant abdominal pain. Ultrasound nondiagnostic. Hepatomegaly common bile duct dilatation. PROCEDURE: Multiple axial images are obtained through the abdomen. Oral contrast was administered. PRIOR STUDIES: Quadrant ultrasound 11/11/2024. FINDINGS: Liver: Mildly enlarged without focal lesion. Pancreas: Unremarkable. Kidneys: Unremarkable. Adrenal glands: Unremarkable. Spleen: Unremarkable Gallbladder: Unremarkable. Visualized GI tract: There is stool scattered in the visualized colon. Aorta: Normal in caliber. Abdominal wall: No ventral hernia. Lymph nodes: Unremarkable. Bones: Unremarkable. Lung bases: Clear. Procedure Note Katty Flores MD - 11/25/2024 CT ABDOMEN AND PELVIS WITHOUT CONTRAST HISTORY: Right upper quadrant abdominal pain. Ultrasound nondiagnostic.Hepatomegaly common bile duct dilatation. PROCEDURE: Multiple axial images are obtained through the abdomen. Oralcontrast was administered. PRIOR STUDIES: Quadrant ultrasound 11/11/2024. FINDINGS: Liver: Mildly enlarged without focal lesion. Pancreas: Unremarkable. Kidneys: Unremarkable. Adrenal glands: Unremarkable. Spleen: Unremarkable Gallbladder: Unremarkable. Visualized GI tract: There is stool scattered in the visualized colon. Aorta: Normal in caliber. Abdominal wall: No ventral hernia. Lymph nodes: Unremarkable. Bones: Unremarkable. Lung bases: Clear. IMPRESSION: Mild hepatomegaly. Possible constipation. Otherwise, unremarkable exam. -------- FINAL REPORT -------- Dictated By: Katyt Flores Dictated Date: 11/25/2024 14:18 ET Assigned Physician: Katty Flores Reviewed and Electronically Signed By: Katty Flores Signed Date: 11/25/2024 14:26 ET Workstation ID: [id number] Transcribed By: Self Edit Transcribed Date: 11/25/2024 14:18 ET us Andrey Pack MD IMG CT PROCEDURES Final Result * Hepatitis C virus quantitative molecular study (11/16/2024 4:24 PM EDT) [facility] HCV Qual Interp Not Detected Not Detected LAB MOLECULAR DIAGNOSTICS METHOD 11/17/2024 11:14 AM EDT [facility] Comment:HCV RNA not detected , unable to report quantitative results. Blood Venous blood specimen / Unknown Venipuncture / Unknown 11/16/2024 4:24 PM EDT 11/16/2024 4:25 PM EDT Andrey Pack MD LAB BLOOD ORDERABLES Final Resu lt [facility] [address] [place] [address], * (ABNORMAL) Hepatitis C antibody (11/11/2024 9:28 AM EDT) Pathologist [facility] Hepatitis C Antibody Positive (A) Negative LAB CHEMISTRY METHOD 11/11/2024 2:06 PM EDT [facility] Comment:If confirmation of t his positive HCV Ab screening test is needed, please redraw and order HCV Viral Load. Note--> This test may not be added on due to different specimen requirements. Blood Venous blood specimen / Unknown Venipuncture / Unknown 11/11/2024 9:28 AM EDT 11/11/2024 9:28 AM EDT Andrey Pack MD LAB BLOOD ORDERABLES Final Resu lt [facility] [address] [place] [address], [place] [phone] * AST, ALT, Bilirubin ELR state reportables (11/11/2024 9:28 AM EDT) Only the most recent of2 resultswithin the time period is included. Platelets [address] [facility] LAB HEMETOLOGY METHOD 11/11/2024 2:22 PM EDT [facility] Blood Venous blood specimen / Unknown Venipuncture / Unknown 11/11/2024 9:28 AM EDT 11/11/2024 9:28 AM EDT Andrey Pack MD LAB BLOOD ORDERABLES Final Resu lt Performing Organization Address City/[facility]/ZIP Co de Phone Number [facility] [address] [place] [address], [place] [phone] * US Abdomen Limited (11/11/2024 9:14 AM EDT) Anatomical Region Laterality Modality Body Ultrasound 11/11/2024 9:17 AM EDT Impressions 11/11/2024 9:24 AM EDT Limited examination. 1. Dilated common bile duct (0.6 cm[address] of abdomen for further evaluation. 2. Hepatomegaly (19.2 cm). -------- FINAL REPORT -------- Dictated By: Sanju Curiel Dictated Date: 11/11/2024 09:17 ET Assigned Physician: Sanju Curiel Reviewed and Electronically Signed By: Sanju Curiel Signed Date: 11/11/2024 09:24 ET Workstation ID: [id number] Transcribed By: Self Edit Transcribed Date: 11/11/2024 09:17 ET Narrative 11/11/2024 9:24 AM EDT EXAM: US ABDOMEN LIMITED TECHNIQUE: US Abdominal limited right upper quadrant. HISTORY: disease of liver Elevated alk phos and GGT COMPARISON: None FINDINGS: Limited examination according to technologist notes. Pancreas: Cannot be evaluated. Obscured by overlying gas. Liver: Hepatomegaly (19.2 cm). Normal echogenicity. No focal lesions demonstrated. Main Portal Vein: Patent with normal direction of flow. Gallbladder: No gallstones or gallbladder wall thickening. Biliary: Dilated common bile duct measures 0.6 cm. Right Kidney: Size: 11.6 cm. Limited views, but no obvious renal stones or hydronephrosis. Procedure Note Sanju Curiel MD - 11/11/2024 EXAM: US ABDOMEN LIMITED TECHNIQUE: US Abdominal limited right upper quadrant. HISTORY: disease of liver Elevated alk phos and GGT COMPARISON: None FINDINGS: Limited examination according to technologist notes. Pancreas: Cannot be evaluated. Obscured by overlying gas. Liver: Hepatomegaly (19.2 cm). Normal echogenicity. No focal lesionsdemonstrated. Main Portal Vein: Patent with normal direction of flow. Gallbladder: No gallstones or gallbladder wall thickening. Biliary: Dilated common bile duct measures 0.6 cm. Right Kidney: Size: 11.6 cm. Limited views, but no obvious renal stones orhydronephrosis. IMPRESSION: Limited examination. 1. Dilated common bile duct (0.6 cm). [address] CT of abdomen for furtherevaluation. 2. Hepatomegaly (19.2 cm). -------- FINAL REPORT -------- Dictated By: Sanju Curiel Dictated Date: 11/11/2024 09:17 ET Assigned Physician: Sanju Curiel Reviewed and Electronically Signed By: Sanju Curiel Signed Date: 11/11/2024 09:24 ET Workstation ID: [id number] Transcribed By: Self Edit Transcribed Date: 11/11/2024 09:17 ET us Andrey Pack MD [facility] US PROCEDURES Final Result * (ABNORMAL) Hepatitis panel, acute with reflex to confirmation (10/15/2024 9:04 AM EDT) Pathologist [facility] Hepatitis B Surface Ag Negative Negative LAB CHEMISTRY METHOD 10/15/2024 1:16 PM EDT [facility] Hepatitis A Antibody IgM Negative Negative LAB CHEMISTRY METHOD 10/15/2024 1:16 PM EDT [facility] Hep B Core IgM Negative Negative LAB CHEMISTRY METHOD 10/15/2024 1:16 PM EDT [facility] Hepatitis C Antibody Positive(A) Negative LAB CHEMISTRY METHOD 10/15/2024 1:16 PM EDT [facility] Comment:If confirmation of t his positive HCV Ab screening test is needed, please redraw and order HCV Viral Load. Note--> This test may not be added on due to different specimen requirements. Blood Venous blood specimen / Unknown Venipuncture / Unknown 10/15/2024 9:04 AM EDT 10/15/2024 9:49 AM EDT us Andrey Pack MD LAB BLOOD ORDERABLES Final Resu lt [facility] [address] [place] [address], * (ABNORMAL) CBC auto differential (10/15/2024 9:04 AM EDT) [facility] WBC 5.6 4.8 - 10.8 K/mcL LAB HEMETOLOGY METHOD 10/15/2024 10:00 AM EDT [facility] RBC 4.10 3.80 - 4.80 M/mcL LAB HEMETOLOGY METHOD 10/15/2024 10:00 AM EDT [facility] Hemoglobin 9.5(L) 11.5 - 16.0 g/dL LAB HEMETOLOGY METHOD 10/15/2024 10:00 AM EDT [facility] Hematocrit 31.2(L) 35.0 - 47.0 % LAB HEMETOLOGY METHOD 10/15/2024 10:00 AM [facility] MCV 76.1(L) 79.0 - 98.0 FL LAB HEMETOLOGY METHOD 10/15/2024 10:00 AM [facility] MCH 23.2(L) 27.0 - 32.0 pcg LAB HEMETOLOGY METHOD 10/15/2024 10:00 AM [facility] MCHC 30.4(L) 32.0 - 37.0 g/dL LAB HEMETOLOGY METHOD 10/15/2024 10:00 AM [facility] RDW 15.8(H) 11.0 - 15.0 % LAB HEMETOLOGY METHOD 10/15/2024 10:00 AM [facility] Platelets 241 130 - 400 K/mcL LAB HEMETOLOGY METHOD 10/15/2024 10:00 AM [facility] MPV 10.7 7.0 - 11.0 FL LAB HEMETOLOGY METHOD 10/15/2024 10:00 AM [facility] NRBC 0.0 <1.0 % LAB HEMETOLOGY METHOD 10/15/2024 10:00 AM [facility] NRBC Absolute 0.00 <0.10 K/mcL LAB HEMETOLOGY METHOD 10/15/2024 10:00 AM [facility] Neutrophils Relative 52.1 % LAB HEMETOLOGY METHOD 10/15/2024 10:00 AM [facility] Lymphocytes Relative 35.3 % LAB HEMETOLOGY METHOD 10/15/2024 10:00 AM [facility] Monocytes Relative 8.9 % LAB HEMETOLOGY METHOD 10/15/2024 10:00 AM [facility] Eosinophils Relative 2.8 % LAB HEMETOLOGY METHOD 10/15/2024 10:00 AM [facility] Basophils Relative 0.5 % LAB HEMETOLOGY METHOD 10/15/2024 10:00 AM EDT [facility] Immature Granulocytes Relative 0.4 % LAB HEMETOLOGY METHOD 10/15/2024 10:00 AM EDT [facility] Neutrophils Absolute 2.93 1.50 - 7.00 K/mcL LAB HEMETOLOGY METHOD 10/15/2024 10:00 AM EDT [facility] Lymphocytes Absolute 1.99 1.00 - 5.00 K/mcL LAB HEMETOLOGY METHOD 10/15/2024 10:00 AM EDT [facility] Monocytes Absolute 0.50 0.20 - 1.00 K/mcL LAB HEMETOLOGY METHOD 10/15/2024 10:00 AM EDT [facility] Eosinophils Absolute 0.16 0.00 - 0.50 K/mcL LAB HEMETOLOGY METHOD 10/15/2024 10:00 AM EDT [facility] Basophils Absolute 0.03 0.00 - 0.20 K/mcL LAB HEMETOLOGY METHOD 10/15/2024 10:00 AM EDT [facility] Immature Granulocytes Absolute 0.02 0.00 - 0.03 K/mcL LAB HEMETOLOGY METHOD 10/15/2024 10:00 AM EDT [facility] Blood Venous blood specimen / Unknown Venipuncture / Unknown 10/15/2024 9:04 AM EDT 10/15/2024 9:50 AM EDT us Andrey Pack MD LAB BLOOD ORDERABLES Final Resu lt [facility] [address] [place] [address], * (ABNORMAL) Iron and TIBC (10/15/2024 9:04 AM EDT) Iron 31(L) 40 - 150 mcg/dL LAB CHEMISTRY METHOD 10/15/2024 10:58 AM EDT [facility] TIBC 462(H) 250 - 450 mcg/dL LAB CHEMISTRY METHOD 10/15/2024 10:58 AM EDT [facility] Iron Saturation 7(L) 15 - 50 % LAB CHEMISTRY METHOD 10/15/2024 10:58 AM EDT [facility] Blood Venous blood specimen / Unknown Venipuncture / Unknown 10/15/2024 9:04 AM EDT 10/15/2024 9:49 AM EDT us Andrey Pack MD LAB BLOOD ORDERABLES Final Resu lt Performing Organization Address [facility]/ZIP Co de Phone Number [facility] [address] [place] [address], [place] [phone] * Alkaline phosphatase (10/15/2024 9:04 AM EDT) Alkaline Phosphatase 111 42 - 121 unit/L LAB CHEMISTRY METHOD 10/15/2024 10:58 AM EDT [facility] Blood Venous blood specimen / Unknown Venipuncture / Unknown 10/15/2024 9:04 AM EDT 10/15/2024 9:49 AM EDT Andrey Pack MD LAB BLOOD ORDERABLES Final Resu lt [facility] [address] [place] [address], [place] [phone] * (ABNORMAL) GGT (10/15/2024 9:04 AM EDT) GGT 83(H) 7 - 64 unit/L LAB CHEMISTRY METHOD 10/15/2024 10:55 AM EDT [facility] Blood Venous blood specimen / Unknown Venipuncture / Unknown 10/15/2024 9:04 AM EDT 10/15/2024 9:49 AM EDT Andrey Pack MD LAB BLOOD ORDERABLES Final Resu lt [facility] [address] [place] [address], [place] [phone] * Ferritin (10/15/2024 9:04 AM EDT) [facility] Ferritin 10 8 - 252 ng/mL LAB CHEMISTRY METHOD 10/15/2024 11:47 AM EDT [facility] Blood Venous blood specimen / Unknown Venipuncture / Unknown 10/15/2024 9:04 AM EDT 10/15/2024 9:49 AM EDT Andrey Pack MD LAB BLOOD ORDERABLES Final Resu lt [facility] [address] [place] [address], [place] [phone] * Depression Screening (06/25/2023) [facility] Depression Screening Abstracted Historical Provider HEALTH MAINTENANCE Final Result * (ABNORMAL) Lipid panel (05/14/2023) [facility] LDL/HDL Ratio 3 0 - 4 Triglycerides 164(A) 0 - 150 mg/dL Cholesterol 161 0 - 200 mg/dL HDL 51 >=40 mg/dL LDL Cholesterol 78 0 - 100 mg/dL Blood Venous blood specimen / Unknown Historical Provider LAB BLOOD ORDERABLES Teena l Result * HIV Screening (12/10/2018) [facility] HIV Screening Abstracted Historical Provider HEALTH MAINTENANCE Final Result * Cervical Cancer Screening: HPV (01/04/2017) [facility] Cervical Cancer Screening: HPV abstracted ,negative us Historical Provider HEALTH MAINTENANCE Final Result from Last 3 Months or Most Recently Relevant to Health Maintenance Insurance [facility] Care Teams Nnp Relationship Specialty Start Date End Date Andrey Pack MD [address] [place] [id number] PCP - General Internal Medicine 03/10/21
--- OUTSIDE RECORDS SUMMARY | 2025-01-12 08:07 | XMS_ITS | Clinical Summary ---
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 Role Phone Desi Hong MD Primary Care Provider Unavaila ble Allergies Active Allergy Reactions Criticality Noted Date Comments Penicillins Anaphylaxis High 09/08/2013 Medications No known medications Social History Tobacco Use Types Packs/Day Years Used Date Smoking Tobacco: Every Day Cigarettes Alcohol Use Standard Drinks/Week Comments No 0 (1 standard drink = 0.6 oz pur e alcohol) Comments No Sex and Gender Information Value Date Recorded Sex Assigned at Not on file Legal Sex Female 9:54 PM EDT Gender Identity Not on file Sexual Orientation Not on file Last Filed Vital Signs Vital Sign Reading Time Taken Comments Blood Pressure 133/100 09/09/2013 12:58 AM EDT Pulse 75 09/09/2013 12:58 AM EDT Temperature 36.7 C (98 F) 09/09/2013 12:58 AM EDT Respiratory Rate 18 09/09/2013 12:58 AM EDT Oxygen Saturation 99% 09/09/2013 12:58 AM EDT Inhaled Oxygen Concentration - - Weight 73.5 kg (162 lb) 09/08/2013 10:09 PM EDT Height - - Body Mass Index - - Plan of Treatment Health Maintenance Due Date Last Done Comments HIV screening 2006 Hepatitis C screening 12/26/2011 Tetanus adult (Td q 10,TDAP once) 2013 Covid-19 vaccine series ( - 2023- season) 2024 Influenza vaccine 01/18/2025 RSV Immunization (1 - 1-dose 75+ series) 2068 Meningococcal Vaccine Aged Out No obed rafael eligible based on patient's age to complete this topic Pneumococcal Vaccine (2 - 49 years) Aged Out No longer eligible based on patient's age to complete this topic Insurance [id number] MEDICAID [id number] MEDICAID [id number] MEDICAID [id number] MEDICAID Care Teams 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
--- OUTSIDE RECORDS SUMMARY | 2025-01-12 08:07 | XMS_ITS ---
Author Name [facility] Organization Unknown History of Medication Use Medication Directions Dispensed Refills Start Date End Date Stat ferrous gluconate (FERGON) 324 mg (38 mg iron) tablet Take 1 tablet (324 mg total) by mouth 1 (one) time each day. 10/15/2024 active gabapentin (NEURONTIN) 300 mg capsule Take 1 capsule (300 mg total) by mouth 3 (three) times a day. 09/29/2024 active clonazePAM (KlonoPIN) 1 mg tablet Take 1 tablet (1 mg total) by mouth 2 (two) times a day. Max Daily Amount: 2 mg 09/09/2024 active FLUoxetine (PROzac) 20 mg capsule Take 1 capsule (20 mg total) by mouth 1 (one) time each day. 09/07/2024 active traZODone (DESYREL) 100 mg tablet Take 1 tablet (100 mg total) by mouth at bedtime. 09/07/2024 active famotidine (PEPCID) 10 mg tablet Take 1 tablet (10 mg total) by mouth. 03/10/2024 active FLUoxetine (PROzac) 10 mg capsule Take 4 Capsules by mouth daily. 05/21/2023 active ARIPiprazole (ABILIFY) 10 mg tablet Take 1 tablet (10 mg total) by mouth 1 (one) time each day. active methadone (DOLOPHINE) 10 mg tablet Take 78 mg by mouth 1 (one) time each day. active Allergies Allergen Reaction Severity Comment Documented Date Source Status PENICILLIN RASH Tolerates cefepimedenies difficult breathing or throat closinghives 04/08/2024 [facility] active HALOPERIDOL ANAPHYLAXIS 03/23/2024 [facility] ac tive TRAZODONE HCL Gives pt nightmares 05/01/2022 [facility] active PENICILLINS ANAPHYLAXIS 06/05/2016 [facility] tive Problems Problem Status Onset Date Problem Type Date of Resoluti on Source Anxiety active 2024-03-03 ProblemAct [facility] Subclinical hypothyroidism active 2023-05-16 ProblemAct [facility] Asthma active 2024-04-08 ProblemAct [facility] Constipation active 2024-04-08 ProblemAct [facility] Therapeutic opioid-induced constipation (OIC) active 2016-09-12 ProblemAct [facility] Severe obesity ([facility] V24, [facility] V28) active 2024-04-08 ProblemAct [facility] Chronic pain active 2016-06-05 ProblemAct [facility] Bacteremia active 2024-04-08 ProblemAct [facility] Chronic hepatitis C without hepatic coma ([facility] V24, [facility] V28) active 2016-06-05 ProblemAct [facility] Joint pain active 2024-03-03 ProblemAct [facility] Depression active 2024-03-03 ProblemAct [facility] Polysubstance dependence ([facility] V24, [facility] V28) active 2016-06-05 ProblemAct [facility] Immunizations Vaccine Date Source Lot Number Status Tdap Tetanus diptheria acell ular pertussis (Boostrix; Adacel) 7yo and older 02/12/2017 [facility] [id number] completed Influenza trivalent, 0.5mL, preservative free (Fluarix; FluLaval; Fluzone) ages 6mo and older (Afluria) 3 years and older 06/05/2016 [facility] [id number] completed Influenza trivalent, with pr eservative (Fluzone; Afluria) 6mo and older 06/05/2016 [facility] [id number] completed Hepatitis A Adult (Havrix; V aqta) 19yo and older 11/25/2015 [facility] completed Hepatitis B ([id number]-[id number]-Iqkyv , Recombivax HB-Adult) 19yo and older 11/25/2015 [facility] complet ed PPD Test 11/12/2015 [facility] completed Pneumococcal polysaccharide 23 valent (Pneumovax 23) 2yo and older 07/07/2015 [facility] [id number] com pleted HPV, Quadrivalent 04/25/2007 [facility] 1446U complet ed Meningococcal, Unspecified 04/25/2007 [facility] [id number] completed Varicella live (Varivax) 12mo and older 04/25/2007 [facility] [id number] completed Influenza trivalent, with pr eservative (Fluzone; Afluria) 6mo and older 04/07/2007 [facility] [id number] completed Hep B, Unspecified 02/01/1994 [facility] UNK comple keke Hepatitis B Pediatric (Enger ix B; Recombivax HB) to less than 20 yo 02/01/1994 [facility] completed Hep B, Unspecified 1993 [facility] UNK comple keke Hepatitis B Pediatric (Enger ix B; Recombivax HB) to less than 20 yo 1993 [facility] completed Care Team Organization Name Specialty Phone Email Start Date End Da te [facility] 03/27/20222023
== END 2025-01-12 08:29 | disposition home or self-care (01) ==
PROVIDERS: Visit Provider Physician Assistant
DX: K04.7 Periapical abscess without sinus (principal)

== ENCOUNTER → 2025-01-12 08:03 | Outpatient (BNVA) | payer OTHER, SELFPAY | PROVIDERS: Visit Provider Physician Assistant | DX: K04.7 Periapical abscess without sinus (principal); F43.10 Post-traumatic stress disorder, unspecified; F41.9 Anxiety disorder, unspecified; F11.20 Opioid dependence, uncomplicated | CPT/HCPCS: 99212 ==

== ENCOUNTER 2025-03-16 10:31 | Outpatient (AMB) | payer OTHER, SELFPAY ==
--- OUTSIDE RECORDS SUMMARY | 2025-03-14 16:09 | XMS_ITS | Continuity of Care Document ---
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 Name Role Phone Not on Staff, PCP Primary Care Physician Unavail able Encounter [facility] NBR [id number] Date(s): 03/14/25 - 03/14/[address] [address]- Encounter Diagnosis Dental infection(Final) - 03/14/25 Pain, dental(Final) - 03/14/25 Fractured tooth(Final) - 03/14/25 Discharge Disposition: A-D/C Home Attending Physician: Ada Hernandez DO Admitting Physician: Ada Hernandez DO Referring Physician: Not on Staff, Referring MD Encounter Type: Disch ES Allergies, Adverse Reactions, Alerts Substance Criticality Severity Reaction Reaction Severity Status penicillin Active penicillins 1, 2, 3 Unable to assess criticality Unknown Rash Active Haldol anaphylaxis Active 1Tolerates cefepime 2denies difficult breathing or throat closing 3hives Immunizations Given and Recorded Vaccine Date Status Refusal Reason pneumococcal 23-valent vaccine 2/18/16 Given Human Papillomavirus Vaccine 1 04/25/07 Given Varicella Virus Vaccine 04/25/07 Given Meningococcal Conjugate Vaccine 04/25/07 Given influenza virus vaccine, inactivated 04/07/07 Give n Hepatitis B Vaccine (old term) 2 02/01/94 Given Hepatitis B Vaccine (old term) 93 Given 1Admin Note: vis 01/22/06 2Admin Note: HEP B Medications ARIPiprazole 20 mg oral tablet 1 tablet = 20 mg, By Mouth, Daily, # 90 tablet, 0 Refills, Maintenance, 09/07/24 5:22:00 PM EDT, Tablet, Partial fill upon patient request if the prescription is for a schedule II opioid drug. Start Date: 09/07/24 Status: Ordered Medication Dispense Status: Completed Quantity: 90.0 Unit: tablet Total Allowed Fills: 1 Fills Dispensed: 0 chlorhexidine topical 0.12% liquid 15 mL = 0.018 Gm, By Mouth, 2 times a day, # 900 mL, 0 Refills, Maintenance, 03/14/25 4:57:00 PM EDT, Liquid, [id number], Partial fill upon patient request if the prescription is for a schedule II opioid drug., 15 mL By Mouth 2 times a day,x30 days, 162, cm, 03/14/25 16:08:00 EDT, Height, 131.1, kg, 03/14/25 16:08:00 EDT, Dry Weight Start Date: 03/14/25 Stop Date: 04/13/25 Status: Ordered Medication Dispense Status: Completed Quantity: 900.0 Unit: mL Total Allowed Fills: 1 Fills Dispensed: 0 clindamycin 150 mg oral capsule 3 capsule = 450 mg, By Mouth, Every 8 hours, for 10 days, # 90 capsule, 0 Refills, Acute 03/24/25 4:57:00 PM EST, 03/14/25 4:57:00 PM EDT, Capsule, [id number], Partial fill upon patient request if the prescription is for a schedule II opioid drug., 162, cm, 03/14/25 16:08:00 EDT, Height, 131.1, kg, 03/14/25 16:08:00 EDT, Dry Weight Start Date: 03/14/25 Stop Date: 03/24/25 Status: Ordered Medication Dispense Status: Completed Quantity: 90.0 Unit: capsule Total Allowed Fills: 1 Fills Dispensed: 0 famotidine 10 mg oral tablet 1 tablet = 10 mg, By Mouth, Daily, # 14 tablet, 0 Refills, Maintenance, 03/10/24 6:49:00 PM EDT, Tablet, [facility]-[id number], Partial fill upon patient request if the prescription is for a schedule II opioid drug., 163, cm, 03/10/24 15:47:00 EDT, Height, 123, kg, 03/10/24 15:47:00 EDT, Dry Weight Start Date: 03/10/24 Status: Ordered Medication Dispense Status: Completed Quantity: 14.0 Unit: tablet Total Allowed Fills: 1 Fills Dispensed: 0 ferrous gluconate 256 mg (28 mg elemental iron) oral tablet 1 tablet = 256 mg, By Mouth, Every other day, AT BED TIME, # 45 tablet, 3 Refills, Maintenance, 03/30/21 1:12:00 PM EST, Tablet, [id number], Partial fill upon patient request if the prescription is for a schedule II opioid drug., 163, cm, 09/05/20 11:14:00 EDT, Height, 90.8, kg, 09/05/20 11: 14:00 EDT, Dry Weight Start Date: 03/30/21 Stop Date: 03/25/22 Status: Ordered Medication Dispense Status: Completed Quantity: 45.0 Unit: tablet Total Allowed Fills: 4 Fills Dispensed: 0 FLUoxetine 20 mg oral capsule 20 mg, 1, capsule, By Mouth, Daily, # 90 capsule, Refills 0, Maintenance, 09/07/24 5:20:00 PM EDT, Partial fill upon patient request if the prescription is for a schedule II opioid drug. Start Date: 09/07/24 Status: Ordered Medication Dispense Status: Completed Quantity: 90.0 Unit: capsule Total Allowed Fills: 1 Fills Dispensed: 0 gabapentin 300 mg oral capsule 300 mg, 1, capsule, By Mouth, 3 times a day, # 90 capsule, Refills 5, Maintenance, 09/07/24 5:15:00 PM EDT, Partial fill upon patient request if the prescription is for a schedule II opioid drug. Start Date: 09/07/24 Status: Ordered Medication Dispense Status: Completed Quantity: 90.0 Unit: capsule Total Allowed Fills: 1 Fills Dispensed: 0 lactulose 10 gm/15 ml oral syrup 60 mL = 40 Gm, By Mouth, Daily, # 480 mL, 0 Refills, Maintenance, 09/07/24 5:23:00 PM EDT, Syrup, Partial fill upon patient request if the prescription is for a schedule II opioid drug. Start Date: 09/07/24 Status: Ordered Medication Dispense Status: Completed Quantity: 480.0 Unit: mL Total Allowed Fills: 1 Fills Dispensed: 0 LORazepam 0.5 mg oral tablet 1 tablet = 0.5 mg, By Mouth, Every 12 hours, PRN as needed for anxiety, 0 Refills, Maintenance, 09/07/24 5:20:00 PM EDT, Tablet, Partial fill upon patient request if the prescription is for a scheduleII opioid drug. Start Date: 09/07/24 Status: Ordered Medication Dispense Status: Completed Total Allowed Fills: 1 Fills Dispensed: 0 Methadone 85mgs, By Mouth, Daily, 0 Refills, Maintenance, 01/06/18 2:28:24 PM EDT Start Date: 01/06/18 Status: Ordered Medication Dispense Status: Completed Total Allowed Fills: 1 Fills Dispensed: 0 Redi Cat 2- pre mixed 450 ml Redi Cat 2- pre mixed 450 ml, See Instructions, # 900 mL, Refills 0, Tot. Refills 0, Maintenance, as instructed for CT scan, 03/15/21 10:42:00 AM EDT, Compound, 163, cm, 09/05/20 11:14:00 EDT, Height, 90.8, kg, 09/05/20 11:14:00 EDT, Dry Weight Start Date: 03/15/21 Status: Ordered Medication Dispense Status: Completed Quantity: 900.0 Unit: mL Total Allowed Fills: 1 Fills Dispensed: 0 traZODone 100 mg oral tablet 100 mg, 1, tablet, By Mouth, Refills 0, Maintenance, 09/07/24 5:22:00 PM EDT, Partial fill upon patient request if the prescription is for a schedule II opioid drug. Start Date: 09/07/24 Status: Ordered Medication Dispense Status: Completed Total Allowed Fills: 1 Fills Dispensed: 0 traZODone 50 mg oral tablet 50 mg, By Mouth, Daily at bedtime, may repeat x'1 daily for sleep., # 60 tablet, Refills 0, Tot. Refills 0, Maintenance, 01/20/18 11:57:10 AM EDT, Print Requisition Start Date: 01/20/18 Stop Date: 02/19/18 Status: Ordered Medication Dispense Status: Completed Quantity: 60.0 Unit: tablet Total Allowed Fills: 1 Fills Dispensed: 0 Problem List Condition Confirmation Course Effective Dates Status Health St atus Informant ASTHMA Confirmed Active Asthma Confirmed Active Bacteremia Confirmed Active CONSTIPATION Confirmed Active Severe obesity Confirmed Active Vital Signs Most recent to oldest [Reference Range]: 1 2 Height 162 cm (03/14/25 4:08 PM) 162 cm (03/14/25 12:37 PM) Weight 131.1 kg (03/14/25 4:08 PM) 131.1 kg (03/14/25 12:37 PM) Oxygen Saturation [94-100 %] 94 % (03/14/25 12:37 PM) Pulse Rate [55-90 bpm] 106 bpm *H* (03/14/25 12:37 PM) Blood Pressure [90-138/55-84 mm Hg] 154/ 94mm Hg *H* (03/14/25 12:37 PM) Respiratory Rate [16-30 br/min] 16 br/mi n (03/14/25 12:37 PM) Temperature [96.8-100.4 DegF] 97.6 DegF (03/14/25 12:37 PM) Mode of Delivery (Oxygen) Room air (03/14/25 12:37 PM) Blood pressure sites Arm, left (03/14/25 12:37 PM) Temperature Route Temporal (03/14/25 12:37 PM) Dry Weight 131.1 kg (03/14/25 4:08 PM) 131.1 kg (03/14/25 12:37 PM) Weight Obtained Via Standing scale (03/14/25 12:37 PM) Social History Social History Type Response Tobacco Type: Cigarettes. To bacco use times per day: 1/2 pack daily. Previous treatment: None. Tobacco user in household: No. Sex Female Sex Representation Female (finding) Status Not Note * Megan Cedillo: PERFORM Event Display: Patient Education Leaflets Authored Date: [id number] Clindamycin ?? [id number] Clindamycin IMPORTANT WARNING: Many antibiotics, including clindamycin, may cause overgrowth of dangerous bacteria in the large intestine. This may cause mild diarrhea or may cause a life-threatening condition called colitis (inflammation of the large intestine). Clindamycin is more likely to cause this type of infection than many other antibiotics, so it should only be used to treat serious infections that cannot be treated by other antibiotics. Tell your doctor if you have or have ever had colitis or other conditions that affect your stomach or intestines. You may develop these problems during your treatment or up to several months after your treatment has ended. Call your doctor if you experience any of the following symptoms during your treatment with clindamycin or during the first several months after your treatment has finished: watery or bloodystools, diarrhea, stomach cramps, or fever. Talk to your doctor about the risks of taking clindamycin. WHY is this medicine prescribed? Clindamycin is used to treat certain types of bacterial infections, including infections of the lungs, skin, blood, female reproductive organs, and internal organs. Clindamycin is in a class of medications called lincomycin antibiotics. It works by slowing or stopping the growth of bacteria. Antibiotics such as clindamycin will not work for colds, flu, or other viral infections. Using antibiotics when they are not needed increases your risk of getting an infection later that resists antibiotic treatment. HOW should this medicine be used? Clindamycin comes as a capsule and a solution (liquid) to take by mouth. It is usually taken three to four times a day. The length of your treatment depends on the type of infection you have and how well you respond to the medication. Take clindamycin at around the same times every day. Follow the directions on your prescription label carefully, and ask your doctor or pharmacist to explain any part you do not understand. Take clindamycin exactly as directed. Do not take more or less of it or take it more often than prescribed by your doctor. Swallow the capsules whole; do not split, chew, or crush them. Take the capsules with a full glass (6 to 8 ounces [180 to 240 mL]) of water so that the medicationwill not irritate your throat. Do not lie down for at least 30 minutes after you take clindamycin capsules; sit upright or stand upright until at least 30 minutes have passed. You should begin to feel better during the first few days of treatment with clindamycin. If your symptoms do not improve or if they get worse, call your doctor. Take clindamycin until you finish the prescription, even if you feel better. If you stop taking clindamycin too soon or skip doses, your infection may not be completely treated and the bacteria may become resistant to antibiotics. Are there OTHER USES for this medicine? Clindamycin is also sometimes used to treat acne and is used along with other medications to treat anthrax (a serious infection that may be deliberately spread as part of a terror attack) and malaria(a serious infection that is spread by mosquitoes in certain parts of the world). Clindamycin is also sometimes used to treat ear infections, tonsillitis (infection that causes swelling of the tonsils), pharyngitis (infection that causes swelling in the back of the throat), and toxoplasmosis (an infection that may cause serious problems in people who do not have healthy immune systems or in unborn babies whose mothers are infected) when these conditions cannot be treated with other medications.Clindamycin is also sometimes used to treat bacterial vaginosis (an infection caused from too much of certain bacteria in the vagina). Clindamycin is also sometimes used to prevent endocarditis (infection of the heart valves) in certain people who are at risk of developing this infection as a result of a dental procedure. Talk to your doctor about the risks of using this medication for your condition. This medication may be prescribed for other uses; ask your doctor or pharmacist for more information. What SPECIAL PRECAUTIONS should I follow? Before taking clindamycin, ??? tell your doctor and pharmacist if you are allergic to clindamycin, lincomycin (Lincocin), any other medications, or any of the ingredients in clindamycin capsules or solution. Ask your pharmacist for a list of the ingredients. If you will be taking clindamycin capsules, tell your doctor if you are allergic to aspirin or tartrazine (a yellow dye found in some medications). ??? tell your doctor and pharmacist what prescription and nonprescription medications, vitamins, nutritional supplements, and herbal products you are taking or plan to take while taking clindamycin. Your doctor may needto change the doses of your medications or monitor you carefully for side effects. ??? tell your doctor if you have or have ever had asthma, allergies, eczema (sensitive skin that often becomes itchyor irritated) or kidney or liver disease. ??? tell your doctor if you are , plan to become , or are . If you become while taking clindamycin, call your doctor. What SPECIAL DIETARY instructions should I follow? Unless your doctor tells you otherwise, continue your normal diet. What should I do IF I FORGET to take a dose? Take the missed dose as soon as you remember it. However, if it is almost time for the next dose, skip the missed dose and continue your regular dosing schedule. Do not take a double dose to make up for a missed one. What SIDE EFFECTS can this medicine cause? Some side effects can be serious. If you experience any of these symptoms or those listed in the IMPORTANT WARNING section, call your doctor immediately or get emergency medical treatment: ??? peeling or blistering skin ??? rash ??? hives ??? itching ??? difficulty breathing or swallowing ??? hoarseness ??? swelling of the face, throat, tongue, lips, eyes, hands, feet, ankles, or lowerlegs ??? yellowing of the skin or eyes ??? decreased urination ??? new or worsening heartburn ??? difficulty swallowing ??? pain when swallowing Clindamycin may cause other side effects. Call your doctor if you have any unusual problems while taking this medication. If you experience a serious side effect, you or your doctor may send a report to the Food and Drug Administration's (FDA) MedWatch Adverse Event Reporting program online (https://www.fda.gov/Safety/MedWatch) or by phone ( ). What should I know about STORAGE and DISPOSAL of this medication? Keep this medication in the container it came in, tightly closed, and out of reach of children. Store it at room temperature and away from excess heat and moisture (not in the bathroom). Do not refrigerate clindamycin liquid because it may thicken and become hard to pour. Dispose of any unused clindamycin liquid after 2 weeks. Keep all medication out of sight and reach of children as many containers are not child-resistant. Always lock safety caps. Place the medication in a safe location ??? one that is up and away and outof their sight and reach. https://www.upandaway.org Dispose of unneeded medications in a way so that pets, children, and other people cannot take them.Do not flush this medication down the toilet. Use a medicine take-back program. Talk to your pharmacist about take-back programs in your community. Visit the FDA's Safe Disposal of Medicines website h ttps://goo.gl/c4Rm4p for more information. What should I do in case of OVERDOSE? In case of overdose, call the poison control helpline at . Information is also available online at https://www.poisonhelp.org/help. If the victim has collapsed, had a seizure, has trouble breathing, or can't be awakened, immediately call emergency services at [phone]. What OTHER INFORMATION should I know? Keep all appointments with your doctor and the laboratory. Your doctor may order certain lab tests to check your body's response to clindamycin. Do not let anyone else take your medication. Your prescription is probably not refillable. If you still have symptoms of infection after you finish the clindamycin, call your doctor. Keep a written list of all of the prescription and nonprescription (wiyy-tdu-vhbopvq) medicines, vitamins, minerals, and dietary supplements you are taking. Bring this list with you each time you visit a doctor or if you are admitted to the hospital. You should carry the list with you in case of denisse rgencies. Brand Name(s): ??? Cleocin?? also available generically ?? This report on medications is for your information only, and is not considered individual patient advice. Because of the changing nature of drug information, please consult your physician or pharmacist about specific clinical use. The [employer] represents that the information provided hereunder was formulated with a reasonable standard of care, and in conformity with professional standards in the field. The [employer] makes no representations or warranties, express or implied, including, but not limited to, any implied warranty of merchantability and/or fitness for a particular purpose, with respect to such information and specifically disclaims all such warranties. Users are advised that decisions regarding drug therapy are complex medical decisions requiring the independent, informed decision of an appropriate health critical care nurse specialist, and the information is provided for informational purposes only. The entire monograph for a drug should be reviewed for a thorough understanding of the drug's actions, uses and side effects. The [employer] does not endorse or recommend the use of any drug.The information is not a substitute for medical care. AHFS?? Patient Medication Information???. ?? Copyright, 2023. [employer]??, [address], [address], [place], [place]. All Rights Reserved. Duplication for commercial use must be authorized by [facility]. Selected Revisions: May 03, 2024. AHFS?? Patient Medication Information???. ?? Copyright, 2024 ?? * Megan Cedillo: PERFORM Event Display: Patient Education Leaflets Authored Date: [id number] Chlorhexidine mouth rinse ?? [id number] Chlorhexidine mouth rinse WHY is this medicine prescribed? Chlorhexidine is used to treat gingivitis (redness and swelling of the gums). Chlorhexidine is in aclass of medications called anti-infectant agents. It works by decreasing the amount of bacteria inthe mouth. HOW should this medicine be used? Chlorhexidine comes as a solution (liquid) to use as a mouth rinse. It is used twice a day in the morning and evening after brushing your teeth. Use chlorhexidine at around the same times every day. Follow the directions on your prescription label carefully, and ask your doctor, dentist, or pharmacist to explain any part you do not understand. Do not use more or less of it or use it more often than prescribed. To use the oral rinse, follow these steps: ??? Use 1/2 ounce (15 mL) of the solution or to the fill estefany in the cap. ??? Rinse or swish the solution in your mouth for 30 seconds. ??? Spit out the solution after rinsing. Do not swallow the solution. ??? Do not rinse your mouth with water or mouthwash, brush teeth, or eat immediately after using chlorhexidine solution. Ask your pharmacist, dentist, or doctor for a copy of the coremaker pipe's information for the patient. Are there OTHER USES for this medicine? This medication may be prescribed for other uses; ask your doctor or pharmacist for more information. What SPECIAL PRECAUTIONS should I follow? Before using chlorhexidine, ??? tell your doctor, dentist, and pharmacist if you are allergic to chlorhexidine, any other medications, or any of the ingredients in chlorhexidine oral rinse. Ask your pharmacist for a list of theingredients. ??? tell your doctor, dentist, and pharmacist what prescription and nonprescription med ications, vitamins, nutritional supplements, and herbal products you are taking or plan to take. ??? tell your doctor or dentist if you have or have ever had periodontitis. ??? tell your doctor or dentist if you are , plan to become , or are breast-feeding. If you become while using chlorhexidine, call your doctor. ??? you should know that chlorhexidine solution may stainyour teeth, tongue, and areas of repair to damaged or missing teeth. It can also cause an increasedbuild-up of tartar. Be sure to brush and floss your teeth daily, especially any areas that are discolored. See your dentist at least every 6 months to remove any stain or tartar. What SPECIAL DIETARY instructions should I follow? Unless your doctor or dentist tells you otherwise, continue your normal diet. What should I do IF I FORGET to take a dose? Use the missed dose as soon as you remember it. However, if it is almost time for the next dose, skip the missed dose and continue your regular dosing schedule. Do not use a double dose to make up for a missed one. What SIDE EFFECTS can this medicine cause? Some side effects can be serious. If you experience any of these symptoms call your doctor immediately or get emergency medical treatment: ??? rash, itching, swelling of the mouth or throat, difficulty breathing, light headedness, rapid heart rate, upset stomach or diarrhea Chlorhexidine may cause permanent staining of front teeth fillings. Talk to your dentist or doctor about the risks of using this medication. Chlorhexidine may cause other side effects. Call your doctor or dentist if you have any unusual problems while taking this medication. If you experience a serious side effect, you or your doctor or dentist may send a report to the Food and Drug Administration's (FDA) MedComr.setch Adverse Event Reporting program online (https://www.fda.gov/Safety/MedWatch) or by phone ( ). What should I know about STORAGE and DISPOSAL of this medication? Keep this medication in the container it came in, tightly closed, and out of reach of children. Store it at room temperature and away from excess heat and moisture (not in the bathroom). Keep all medication out of sight and reach of children as many containers are not child-resistant. Always lock safety caps. Place the medication in a safe location ??? one that is up and away and outof their sight and reach. https://www.[employer].org Dispose of unneeded medications in a way so that pets, children, and other people cannot take them.Do not flush this medication down the toilet. Use a medicine take-back program. Talk to your pharmacist about take-back programs in your community. Visit the FDA's Safe Disposal of Medicines website h ttps://goo.gl/c4Rm4p for more information. What should I do in case of OVERDOSE? Call your local poison control center at . If a small child (weighing about 22 pounds[10kg]) swallows ???4 ounces of chlorhexidine oral rinse, get emergency medical care. If the victimhas collapsed or is not breathing, call local emergency services at [phone]. Symptoms of overdose may include: ??? nausea What OTHER INFORMATION should I know? Keep all appointments with your doctor and dentist. Do not let anyone else take your medication. Ask your pharmacist any questions you have about refilling your prescription. Keep a written list of all of the prescription and nonprescription (bfew-czd-[id number]) medicines, vitamins, minerals, and dietary supplements you are taking. Bring this list with you each time you visit a doctor or if you are admitted to the hospital. You should carry the list with you in case of denisse rgencies. Brand Name(s): ??? Peridex? Periogard?? (alcohol-free) ?? This report on medications is for your information only, and is not considered individual patient advice. Because of the changing nature of drug information, please consult your physician or pharmacist about specific clinical use. [employer] represents that the information provided hereunder was formulated with a reasonable standard of care, and in conformity with professional standards in the field. The [employer] [employer] makes no representations or warranties, express or implied, including, but not limited to, any implied warranty of merchantability and/or fitness for a particular purpose, with respect to such information and specifically disclaims all such warranties. Users are advised that decisions regarding drug therapy are complex medical decisions requiring the independent, informed decision of an appropriate health critical care nurse specialist, and the information is provided for informational purposes only. The entire monograph for a drug should be reviewed for a thorough understanding of the drug's actions, uses and side effects. The [place] [employer] does not endorse or recommend the use of any drug.The information is not a substitute for medical care. AHFS?? Patient Medication Information???. ?? Copyright, 2023. The [employer]??, [address], [address], [place], [place]. All Rights Reserved. Duplication for commercial use must be authorized by [facility]. Selected Revisions: November 01, 2024. AHFS?? Patient Medication Information???. ?? Copyright, 2024 ?? * Megan Cedillo: PERFORM Event Display: Patient Education Leaflets Authored Date: [id number] Dental Pain ?? [id number] Dental Pain Many things can cause dental pain. A crack or cavity in a tooth can cause tooth pain. This is because the crack or cavity exposes the sensitive inner area of the tooth. An infection in the gum or thetooth's root can also cause pain and swelling. The pain is often made worse when you have hot or cold food or drink. It can also be worse when you bite on hard foods. Pain may spread from the tooth to your ear, or to the part of the jaw on the same side. Other possible sources of tooth pain are: ??? Broken tooth (tooth fracture). ??? Damaged filling. ??? Repeated movements, such as chewing, grinding, or clenching. Home care Follow these tips when caring for yourself at home: ??? Don't have hot and cold foods and drinks. Your tooth may be sensitive to changes in temperature. ??? Use toothpaste made for sensitive teeth. [place] gently up and down instead of sideways. Brushing sideways can wear away root surfaces if they are exposed. ??? If your tooth is chipped or cracked, see a dentist right away. ??? Use a cold pack. Put a cold pack on your jaw over the sore area to help reduce swelling and pain. ??? Ask your doctorabout using svvz-bwf-srteuao medicine for pain, unless your doctor prescribed another medicine. If you have long-term (chronic) liver or kidney disease, talk with your doctor before using acetaminophen or ibuprofen. Also talk with your doctor if you???ve had a stomach ulcer or gastrointestinal (GI)bleeding. ??? Be aware of the signs of infection. If you have signs of an infection, you will be given an antibiotic. Take it as directed and finish all the medicine, even if you feel better, to be sure the infection has cleared. ?? Follow-up care Follow up with your dentist as advised. Your pain may go away with the treatment given today. But only a dentist can fully check and treat the cause of your pain. This will keep the pain from coming back. ?? Call 911 Call 911 if you have: ??? Abnormal drowsiness or confusion. ??? A headache or stiff neck. ??? Weakness or fainting. ??? Trouble swallowing or breathing. ??? Vision problems. ?? When to get medical advice Contact your doctor or get medical care right away??if: ??? Your face gets swollen or red. ??? Paingets worse or spreads to your neck. ??? You have a fever of 100.4??F (38??C) or higher, or as directed by your doctor. ??? Pus drains from the tooth. ?? Last Reviewed Date: 2024 00:00:00 ?? [id number] [employer]. All rights reserved. This information is not intended as a substitute for professional medical care. Always follow your healthcare professional's instructions. ?? Patient Care team information Care Team Personnel Name: Brooklyn Modi RN Position: [facility] RN Member Role: Primary Care Nurse Name: Lin Nicholson RN Position: [facility] RN Member Role: Primary Care Nurse Name: Not on Staff, PCP Position: [facility] Physician (General Medicine) Member Role: PCP Name: Malgorzata Garcia RN Position: [facility] Onco RN Member Role: Primary Care Nurse Name: Lu Thao RN Position: [facility] Outreach Member Role: Primary Care Nurse Name: Selina Patel RN Position: [facility] ED RN W/OE and Tasks Member Role: Primary Care Nurse Care Team Related Persons Name: CHELY GALVAN Name: SUNNY GALVAN Insurance Providers Guarantor name: DEEJAY GALVAN Health Plan Information #: 1 Payer: [employer] SENSE [employer]CO Payer Identifier: GALE Member Number: [id number] Group Number: [facility] Subscriber Identifier: [id number] Relationship to Subscriber: self Coverage Type: NA Coverage Verification Date: NA Telecom: Address:
--- OUTSIDE RECORDS SUMMARY | 2025-03-14 20:12 | XMS_ITS | Continuity of Care Document ---
Author Organization [facility] Address [address] [place] [address]- Care Team Providers Care Coverage Specialist Name Role Phone Not on Staff, PCP Primary Care Physician Unavail able [id number] Date(s): 03/14/25 - 03/14/[address] [address]- Discharge Disposition: A-D/C Walkout Attending Physician: Not on Staff, Attending MD Admitting Physician: Not on Staff, Admitting MD Referring Physician: Not on Staff, Referring MD Encounter Type: Disch ES Allergies, Adverse Reactions, Alerts Substance Criticality Severity Reaction Reaction Severity Status penicillin Active penicillins 1, 2, 3 Unable to assess criticality Unknown Rash Active Haldol anaphylaxis Active 1Tolerates cefepime 2denies difficult breathing or throat closing 3hives Immunizations Given and Recorded Vaccine Date Status Refusal Reason pneumococcal 23-valent vaccine 07/07/15 Given Human Papillomavirus Vaccine 1 04/25/07 Given [...] Refills, Maintenance, 03/10/24 6:49:00 PM EDT, Tablet, [facility] Partial fill upon patient request if the [...] Refills, Maintenance, 03/30/21 1:12:00 PM EST, Tablet, [id number], Partial fill upon patient request if [...] Total Allowed Fills: 1 Fills Dispensed: 0 Mental Status Mental Status Assessment Assessment Assessment Component Result Effecti ve Date Dung coma score total 15 Problem List Condition Confirmation Course Effective Dates Status Health St atus Informant ASTHMA Confirmed Active Asthma Confirmed Active Bacteremia Confirmed Active CONSTIPATION Confirmed Active Severe obesity Confirmed Active Vital Signs Most recent to oldest [Reference Range]: 1 Height 163 cm (03/14/25 7:19 PM) Weight 130.7 kg (03/14/25 7:19 PM) Oxygen Saturation [94-100 %] 97 % (03/14/25 7:19 PM) Pulse Rate [55-90 bpm] 106 bpm *H* (03/14/25 7:19 PM) Blood Pressure [90-138/55-84 mm Hg] 163/ 101mm Hg *H* (03/14/25 7:19 PM) Respiratory Rate [16-30 br/min] 20 br/mi n (03/14/25 7:19 PM) Temperature [96.8-100.4 DegF] 98.2 DegF (03/14/25 7:19 PM) Mode of Delivery (Oxygen) Room air (03/14/25 7:19 PM) Blood pressure sites Arm, left (03/14/25 7:19 PM) Temperature Route Temporal (03/14/25 7:19 PM) Dry Weight 130.7 kg (03/14/25 7:19 PM) Weight Obtained Via Standing scale (03/14/25 7:19 PM) Social History Social History Type Response Tobacco Type: Cigarettes. To bacco use times per day: 1/2 pack daily. Previous treatment: None. Tobacco user in household: No. Sex Female Sex Representation Female (finding) Status Not Patient Care team information Care Team Personnel Name: Brooklyn Modi RN Position: [facility] RN Member Role: Primary Care Nurse Name: Lin Nicholson RN Position: S RN Member Role: Primary Care Nurse Name: Not on Staff, PCP Position: [facility] Physician (General Medicine) Member Role: PCP Name: Malgorzata Garcia RN Position: [facility] Onco RN Member Role: Primary Care Nurse Name: Lu Thao RN Position: [facility] Outreach Member Role: Primary Care Nurse Name: Selina Patel RN Position: [facility] ED RN W/OE and Tasks Member Role: Primary Care Nurse Care Team Related Persons Name: CHELY GALVAN Name: SUNNY GALVAN Insurance Providers Guarantor name: DEEJAY [facility] Plan Information #: 1 Payer: [employer] SENSE ACO Payer Identifier: NA Member Number: [id number] Group Number: [id number] Subscriber Identifier: [id number] Relationship to Subscriber: self Coverage Type: NA Coverage Verification Date: NA Telecom: Address:
[2025-03-16 10:40] VITALS: BP 144/94; PULSE 90; TEMP 37; O2SAT 98; BMI 48.9
--- NOTE | 2025-03-16 10:40 | MHC.OFFWIV ---
Intake Vital Signs 03/16/25 10:40 Height 5 ft 4 in Weight 285 lb BMI 48.9 BP 144/94 H Blood Pressure Location Lt brachial Position Sitting Pulse 90 Pulse Source Pulse Oximeter Temp 98.6 F Temp Source Oral Pulse Oximetry (%) 98 Oxygen Delivery Method Room Air Intake Visit Reasons: right side of face swollen Intake Note: EP complains of right side of the face swilling due to gums inflammation started four days ago. Patient Tobacco Use Status: Former Tobacco user Allergies Penicillins (PENICILLINS) Allergy (Unknown, Verified 03/16/25 13:04) Hives haloperidol Adverse Reaction (Severe, Verified 03/16/25 13:04) Anaphylaxis Medication List - Last Reconciled 03/16/25 by Joon Bowser MD acetaminophen 1,000 mg (2 x 500 mg) PO Q6-8H PRN aripiprazole (Abilify) 20 mg PO DAILY 30 days cefpodoxime 200 mg PO Q12H fluoxetine 20 mg PO DAILY 30 days gabapentin 300 mg PO TID 30 days lorazepam 0.5 mg PO BID PRN 7 days methadone (Methadone Intensol) 128 mg PO DAILY metronidazole 500 mg PO Q8H trazodone 100 mg PO BEDTIME PRN 30 days Do you need a note to return to daycare/school/sports/work: No HPI right side of face swollen HPI Details History of Present Illness The patient is a 29-year-old female presenting with a worsening gum infection RIGHT lower tooth Gum Infection: - The patient presents with a worsening gum infection that initially prompted a visit to the emergency room at [facility] on Saturday. - She was prescribed clindamycin, which she started taking on Saturday night. - Despite taking the antibiotic for two days, her condition has worsened, with increased facial swelling. - The patient reports that the pain is not relieved by ibuprofen. - She has a dentist in [place] but is experiencing difficulty finding a provider that accepts [employer] insurance. Medications: - Clindamycin for gum infection, started on Saturday. - Ibuprofen for pain, which is reported as ineffective. Problem List - Gum infection Plan - Assessment: The patient has significant inflammation which is firm and not yet fluctuate a drainable abscess, but it could progress to one without proper treatment. - Medications: The patient will continue with clindamycin and another antibiotic will be added. - A course of prednisone will be prescribed to reduce inflammation. - A few tablets of Diclofenic sent, patient was instructed not to take any other pain med with it - Dental Follow-up: The patient is strongly advised to seek urgent care with her dentist, as the underlying tooth issue needs to be addressed. - A list of dentists that accept [facility] will be provided to the patient. Review of Systems - General: No fever no chills - Neurological: No headaches no dizziness - Ear nose throat: No sore throat no hearing difficulty no ear pain - Cardiovascular: No syncope, no chest pain, no palpitations - Gastrointestinal: No nausea vomiting or diarrhea - Endocrine: No polyuria polydipsia no heat intolerance - Genitourinary: No dysuria , no blood in urine Physical Exam - General: No acute distress - HEENT: No acute findings , firm area around lower right Jaw felt from check, inside the mouth no abcess was seen - Neck: Supple - Respiratory system: Able to talk in full sentences, no audible wheeze - 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 oriented x3 motor intact - Skin: Normal turgor [facility] Medical History Cellulitis of right wrist Paranoia Agitation Mood disorder Substance induced mood disorder Drug-induced psychotic disorder Asthma Social History Household Members: None Household Members Other:: Homeless Housing: Homeless Housing Other:: Homeless living w/ cousins Do you presently have visiting nurse or other home services: No Alcohol intake: current Alcohol intake frequency: a few times a week Comment: bed 1 Patient Tobacco Use Status: Former Tobacco user Tobacco use type: Cigarette Cigarette Packs Per Day: 0 Cigarettes Per Day: 8 Years Smoked: 10 e-Cigarette/Vaping Use: Currently Using Second Hand Smoke Exposure: No Substance Use Type: Marijuana Advance Directives Date on File: 03/05/22 service: No Sexual orientation: Straight/Heterosexual Physical Exam Vital Signs: Last Vital Signs Temp 98.6 F 03/16/25 10:40 Pulse 90 03/16/25 10:40 BP 144/94 H 03/16/25 10:40 Pulse Ox 98 03/16/25 10:40 Oxygen Delivery Method Room Air 03/16/25 10:40 BMI result Body Mass Index 48.9 HEENT Head images:  1. Assessment & Plan Assessment & Plan (1) Disease of gingiva due to infection: Code(s): K06.8 - Other specified disorders of gingiva and edentulous alveolar ridge; B99.9 - Unspecified infectious disease (2) Right facial swelling: Code(s): R22.0 - Localized swelling, mass and lump, head Plan Gum Infection: - The patient presents with a worsening gum infection that initially prompted a visit to the emergency room at [facility] on Saturday. - She was prescribed clindamycin, which she started taking on Saturday night. - Despite taking the antibiotic for two days, her condition has worsened, with increased facial swelling. - The patient reports that the pain is not relieved by ibuprofen. - She has a dentist in [place] but is experiencing difficulty finding a provider that accepts [employer] insurance. Medications: - Clindamycin for gum infection, started on Saturday. - Ibuprofen for pain, which is reported as ineffective. Problem List - Gum infection Plan - Assessment: The patient has significant inflammation which is firm and not yet fluctuate a drainable abscess, but it could progress to one without proper treatment. - Medications: The patient will continue with clindamycin and another antibiotic will be added. - A course of prednisone will be prescribed to reduce inflammation. - A few tablets of Diclofenic sent, patient was instructed not to take any other pain med with it - Dental Follow-up: The patient is strongly advised to seek urgent care with her dentist, as the underlying tooth issue needs to be addressed. - A list of dentists that accept [employer] will be provided to the patient. Medications: New doxycycline hyclate 100 mg PO BID 20 caps 0RF tooth infection diclofenac sodium take it with food, DONT TAKE WITH ANY OTHER PAIN MEDICATION 75 mg PO BID 20 tabs 0RF pain 10 days Coding Level of Care Code Est Pt Level 3 (56652) Diagnoses Disease of gingiva due to infection K06.8; B99.9 Right facial swelling R22.0
--- OUTSIDE RECORDS SUMMARY | 2025-03-16 11:30 | XMS_ITS | Encounter Summary ---
Author Organization [employer] Address [address] [place] [address] Care Team Providers Care Lead [employer] Name Role Phone Unavailable Primary Care Provider Unavailabl e Reason for Visit * Reason Comments Dental Pain Dental pain on the r ight side for 4 days Encounter Details Date Type Department Care Team (Late st Contact Info) Description 03/16/2025 11:30 AM EDT Office Visit [facility] [address] [place] [address] [id number] Donald Tuttle, DMD [address], [place] [id number] Arrived Social History Tobacco Use Types Packs/Day Years Used Date Smoking Tobacco: Every Day Cigarettes Smokeless Tobacco: Current Alcohol Use Standard Drinks/Week Comments Never 0 (1 standard drink = 0.6 oz pur e alcohol) Comments Unknown Sex and Gender Information Value Date Recorded Sex Assigned at Female 09/29/2024 1:06 PM EDT Legal Sex Female 1:05 PM EDT Gender Identity Female 09/29/2024 1:06 PM EDT Sexual Orientation Straight 09/29/2024 1: 06 PM EDT documented as of this encounter Last Filed Vital Signs Vital Sign Reading Time Taken Comments Blood Pressure 164/100 03/16/2025 11:51 AM EDT Pulse - - Temperature - - Respiratory Rate - - Oxygen Saturation - - Inhaled Oxygen Concentration - - Weight - - Height - - Body Mass Index - - documented in this encounter Plan of Treatment Scheduled Orders Name Type Priority Associated Diagnoses Orde r Schedule 32 32 EXTRACTION, ERUPTED TOOTH OR EXPOSED ROOT (ELEVATION/FORCEPS REMOVAL) Dental Routine [address] arting 03/16/2025 2 2 EXTRACTION, ERUPTED TOOTH OR EXPOSED ROOT (ELEVATION/FORCEPS REMOVAL) Dental Routine [address] arting 03/16/2025 30 30 EXTRACTION, ERUPTED TOOTH OR EXPOSED ROOT (ELEVATION/FORCEPS REMOVAL) Dental Routine [address] arting 03/16/2025 32 32 EXTRACTION, ERUPTED TOOTH OR EXPOSED ROOT (ELEVATION/FORCEPS REMOVAL) Dental Routine [address] arting 03/16/2025 documented as of this encounter Procedures Procedure Name Priority Date/Time Associated Diagnosis Comments PANORAMIC RADIOGRAPHIC IMAGE Routine 03/16/2025 11:30 AM EDT LIMITED ORAL EVALUATION - PROBLEM FOCUSED Routine 03/16/2025 11:30 AM EDT CASE PRESENTATION, DETAILED AND EXTENSIVE TREATMENT PLANNING Routine 03/16/2025 11:30 AM EDT documented in this encounter Visit Diagnoses Not on filedocumented in this encounter
--- OUTSIDE RECORDS SUMMARY | 2025-03-16 13:08 | XMS_ITS | Clinical Summary ---
Author Organization [address] Address [address] [place] [id number] Care Team Providers Care Wage And Salary Administrator Name Role Phone Desi Hong MD Primary [...] Tetanus adult (Td q 10,TDAP once) 2013 Influenza vaccine 12/18/2024 Covid-19 vaccine series ( - 2023- season) 2025 RSV Immunization (1 - 1-dose 75+ series) 2068 Meningococcal B Vaccine Aged Out No l onger eligible based on patient's age to complete this topic Meningococcal Vaccine Aged Out No obed rafael eligible based on patient's age to complete this topic Pneumococcal Vaccine (2 - 49 years) Aged Out No longer eligible based on patient's age to complete this topic Insurance [id number] MEDICAID [id number] MEDICAID [id number] MEDICAID [id number] MEDICAID Care Teams Wage And Salary Administrator Relationship Specialty Start Date End Date Desi Hong MD PCP - General Pediatrics 09/09/13
--- OUTSIDE RECORDS SUMMARY | 2025-03-16 13:09 | XMS_ITS | Encounter Summary ---
Author Organization [employer] Address [address] [facility] 7 [place] [address] Care Team Providers Care Red Hat Linux Engineer Name Role Phone Unavailable Primary Care Provider Unavailabl e Reason for Visit * Reason Comments Med Refill Encounter Details Date Type Department Care Team (Late st Contact Info) Description 12/17/2024 Refill [facility] [address] [place], [place] [phone] Figueroa Verma BDS [address] [place], [place] [id number] Social History Tobacco Use Types Packs/Day Years Used Date Smoking Tobacco: Every Day Cigarettes Smokeless Tobacco: Current Comments Unknown Sex and Gender Information Value Date Recorded Sex Assigned at Female 09/29/2024 1:06 PM EDT Legal Sex Female 1:05 PM EDT Gender Identity Female 09/29/2024 1:06 PM EDT Sexual Orientation Straight 09/29/2024 1: 06 PM EDT documented as of this encounter Miscellaneous Notes * Telephone Encounter - Panfilo Story DDS - 12/17/2024 3:27 PM EDT Patient needs to be seen for a limited exam. I received a medication refill request from the patient's pharmacy. Could you please schedule an appointment for a limited exam with me. Thank you! documented in this encounter Plan of Treatment Not on file documented as of this encounter Visit Diagnoses Not on filedocumented in this encounter
--- OUTSIDE RECORDS SUMMARY | 2025-03-16 13:09 | XMS_ITS | Clinical Summary ---
Author Organization [employer] [facility] Address [address] [facility] [address] [place] [address] Care Team Providers Care Transportation Specialist Name Role Phone Unavailable Primary Care Provider Unavailabl e Allergies Active Allergy Reactions Criticality Noted Date Comments Haloperidol Anaphylaxis High 03/23/2024 Penicillins Anaphylaxis,Rash High 06/05/2016 Tolerates cefepimedenies difficult breathing or throat closinghives Trazodone 05/01/2022 Gives pt nightmares Medications ARIPiprazole (Abilify) 20 MG tablet 09/21/2024 Active gabapentin (Neurontin) 300 MG capsule Take 300 mg by mouth 3 times daily. 03/23/2024 Active traZODone (Desyrel) 100 MG tablet 09/21/2024 Active clonazePAM (KlonoPIN) 1 MG tablet 09/09/2024 Active FLUoxetine (PROzac) 20 MG capsule 09/10/2024 Active atomoxetine (Strattera) 25 MG capsule Take 1 capsule by mouth Once per day. 05/21/2023 Active methadone (Dolophine) 10 MG tablet Take 78 mg by mouth Once per day. Active Active Problems Problem Noted Date Diagnosed Date Iron deficiency anemia secon lam to inadequate dietary iron intake 11/24/2024 Asthma 04/08/2024 Bacteremia 04/08/2024 Constipation 04/08/2024 Severe obesity (CMS/HCC) 04/08/2024 Anxiety 03/03/2024 Depression 03/03/2024 Joint pain 03/03/2024 Subclinical hypothyroidism 05/16/2023 Tobacco use 05/14/2023 Therapeutic opioid-induced constipation (OIC) History of syphilis 07/02/2016 Overview (03/16/2025): Treated, RPR ratio 1:2 01/03 Chronic hepatitis C without hepatic coma 017 Chronic pain 06/05/2016 Polysubstance dependence (CMS/HCC) 06/05/2016 Overview (09/29/2024): Started suboxone program, [facility] Methadone program 2020 Encounters Date Type Department Care Team Description 03/16/2025 11:30 AM EDT Office Visit [facility] [address] [place] [phone] Donald Tuttle DMD Arrived 12/17/[address] [facility] [address] [place] [phone] Figueroa Verma BDLauren from Last 3 Months Social History Tobacco Use Types Packs/Day Years Used Date Smoking Tobacco: Every Day Cigarettes Smokeless Tobacco: Current Tobacco Cessation:Ready to Q uit: Not Asked; Counseling Given: Not Answered Alcohol Use Standard Drinks/Week Comments Never 0 (1 standard drink = 0.6 oz pur e alcohol) Comments Unknown Sex and Gender Information Value Date Recorded Sex Assigned at Female 09/29/2024 1:06 PM EDT Legal Sex Female 1:05 PM EDT Gender Identity Female 09/29/2024 1:06 PM EDT Sexual Orientation Straight 09/29/2024 1: 06 PM EDT Last Filed Vital Signs Vital Sign Reading Time Taken Comments Blood Pressure 164/100 03/16/2025 11:51 AM EDT Pulse 71 09/30/2024 11:21 AM EDT Temperature - - Respiratory Rate - - Oxygen Saturation - - Inhaled Oxygen Concentration - - Weight - - Height - - Body Mass Index - - Plan of Treatment Health Maintenance Due Date Last Done Comments Dental Oral Exam 1993 Dental Prophylaxis 1993 Dental X-Ray: Bitewings 1993 Depression Screening 1993 HIV Screening 1993 Lipid Panel 1993 SDOH Screening 1993 Disability Screening 1993 Alcohol/Substance Use Screening 2005 Family Planning (PISQ) 2008 Pap Smear 2014 Hepatitis A Vaccines (2 of 2 - Risk 2-dose series) 05/27/2016 11/25/2015 Pneumococcal Vaccine: Pediatrics (0 to 5 Years) and At-Risk Patients (6 to 49) Years (2 of 2 - PCV) 07/07/2016 07/07/2015 Cervical Cancer Screening 12/26/2023 HPV/Cotest 12/26/2023 COVID-19 Vaccine (2 - 2024- season) 2025 08/02/2021 Influenza Vaccine (#1) 2025 7, 06/05/2016, 04/07/2007 Tobacco Screening 03/16/2026 03/16/2025 DTaP/Tdap/Td Vaccines (2 - Td or Tdap) 02/12/2027 02/12/2017 Dental X-Ray: Full Mouth 03/17/2028 03/16/2025, 09/17 Zoster Vaccines (1 of 2) 12/26/2043 RSV Patients and Patients Aged 60 years or older (1 - 1-dose 75+ series) 2068 Meningococcal Vaccine Aged Out 04/25/2007 No obed rafael eligible based on patient's age to complete this topic HPV Vaccines Completed 04/09/2017, 04/25/2007 Hepatitis B Vaccines Completed 04/09/2017, 11/25/2015, 02/01/1994, Additional history exists HIB Vaccines Aged Out No longer eligi ble based on patient's age to complete this topic IPV Vaccines Aged Out No longer eligi ble based on patient's age to complete this topic Meningococcal B Vaccine Aged Out No l onger eligible based on patient's age to complete this topic RSV under 20 months Aged Out No longe r eligible based on patient's age to complete this topic Rotavirus Vaccines Aged Out No longer eligible based on patient's age to complete this topic Procedures Procedure Name Priority Date/Time Associated Diagnosis Comments CASE PRESENTATION, DETAILED AND EXTENSIVE TREATMENT PLANNING Routine 03/16/2025 11:30 AM EDT PANORAMIC RADIOGRAPHIC IMAGE Routine 03/16/2025 11:30 AM EDT LIMITED ORAL EVALUATION - PROBLEM FOCUSED Routine 03/16/2025 11:30 AM EDT from Last 3 Months Insurance [facility] ST[facility] ADULT
--- OUTSIDE RECORDS SUMMARY | 2025-03-16 13:09 | XMS_ITS | Clinical Summary ---
Author Organization [address] [facility] Address [address] [place] [phone] Phone Care Team Providers Care Marketing Budget Analyst Name Role Phone Andrey Pack MD Primary Care Provider [phone] Allergies Active Allergy Reactions Criticality Noted Date [...] 1 (one) time each day. 30 each 11 10/15/2024 10/16/19 Active gabapentin (NEURONTIN) 300 mg capsuleIndicati ons:Neuropathy Take 1 capsule (300 mg total) by mouth 3 (three) times a day. 270 capsule 1 11/02/2024 Active atomoxetine (STRATTERA) 40 mg capsule 11/23/2024 Active Active Problems Problem Noted Date Diagnosed Date Iron deficiency anemia secon lam to inadequate dietary iron intake 11/24/2024 Asthma 04/08/2024 Bacteremia 04/08/2024 Constipation 04/08/2024 Severe obesity (CMS/HCC V24, CMS/[facility] V28) 2023 Anxiety 03/03/2024 Depression 03/03/2024 Joint pain 03/03/2024 Subclinical hypothyroidism 05/16/2023 Therapeutic opioid-induced constipation (OIC) Chronic hepatitis C without hepatic coma (CMS/HCC V24, CMS/[facility] V28) 06/05/2016 Chronic pain 06/05/2016 Polysubstance dependence ([facility] V24, [facility] V 28) 06/05/2016 Overview (03/03/2024): Started suboxone program, [facility] Methadone program 2019 Immunizations Immunization Administration Dates Next Due HPV, Quadrivalent 04/25/2007 Hep B, Unspecified 02/01/1994,1993 Hepatitis A Adult (Havrix; Vaqta) 19yo and older 11/25/2015 Hepatitis B (Gzsvdxo-R-Xoehk , Recombivax HB-Adult) 19yo and older 11/25/2015 [...] 11/24/2024 2:45 PM EDT Plan of Treatment Health Maintenance Due Date Last Done Comments Pneumococcal Vaccine: Pediatrics (0 to 5 Years) and At-Risk Patients (6 to 49 Years) (2 of 2 - PCV) 07/07/2016 07/07/2015 Cervical Cancer Screening: Pap Smear 01/05/2020 01/04/2017, 01/04/2017 Social Influencers of Health Screening 04/21/2022 Depression Screening 05/20/2024 06/25/2023 COVID-19 Vaccine (2 - 2024- season) 2025 08/02/2021 Influenza Vaccine (#1) 2025 7, 06/05/2016, 04/07/2007 DTaP,Tdap,and Td Vaccines (2 - Td or Tdap) 02/12/2027 02/12/2017 Cholesterol Screening (Lipid Panel) 05/14/2028 05/14/2023 RSV Immunization Adult Patients (1 - 1-dose 75+ series) 2068 Meningococcal ACWY Vaccine Aged Out 04/25/2007 N [...] Procedure Name Priority Date/Time Associated Diagnosis Comments HEPATITIS C VIRUS QUANTITATIVE PCR Routine 11/16/2024 4:24 PM EDT Hepatitis C antibody test positive DEPRESSION SCREENING Routine 06/25/2023 LIPID PANEL Routine 05/14/2023 HIV SCREENING Routine 12/10/2018 HPV Routine 01/04/2017 from Last 3 Months or Most Recently Relevant to Health Maintenance Results * Hepatitis C virus quantitative molecular study (11/16/2024 4:24 PM EDT) HCV Qual Interp Not Detected Not Detected LAB MOLECULAR DIAGNOSTICS METHOD 11/17/2024 11:14 AM EDT [facility] Comment:HCV RNA not detected , unable to report quantitative results. Blood Venous blood specimen / Unknown Venipuncture / Unknown 11/16/2024 4:24 PM EDT 11/16/2024 4:25 PM EDT Andrey Pack MD LAB BLOOD ORDERABLES Final Resu lt [facility] [address] [place] [address], * Depression Screening (06/25/2023) Depression Screening Abstracted Ivette Provider HEALTH MAINTENANCE Final Result * (ABNORMAL) Lipid panel (05/14/2023) LDL/HDL Ratio 3 0 - 4 Triglycerides 164(A) 0 - 150 mg/dL Cholesterol 161 0 - 200 mg/dL HDL 51 >=40 mg/dL LDL Cholesterol 78 0 - 100 mg/dL Blood Venous blood specimen / Unknown Historical Provider LAB BLOOD ORDERABLES Teena l Result * HIV Screening (12/10/2018) HIV Screening Abstracted Historical Provider HEALTH MAINTENANCE Final Result * Cervical Cancer Screening: HPV (01/04/2017) Pathologist [facility] Cervical Cancer Screening: HPV abstracted ,negative Historical Provider HEALTH MAINTENANCE Final Result from Last 3 Months or Most Recently Relevant to Health Maintenance Insurance [facility] [facility] Care Teams Marketing Budget Analyst Relationship Specialty Start Date End Date Andrey Pack MD [address] [place] [id number] PCP - General Internal Medicine 03/10/21
== END 2025-03-16 11:10 | disposition home or self-care (01) ==
PROVIDERS: Visit Provider Internal Medicine
DX: K06.8 Other specified disorders of gingiva and edentulous alveolar ridge (principal); B99.9 Unspecified infectious disease; R22.0 Localized swelling, mass and lump, head

== ENCOUNTER → 2025-03-16 10:31 | Outpatient (BNVA) | payer OTHER, SELFPAY | PROVIDERS: Visit Provider Internal Medicine | DX: K05.10 Chronic gingivitis, plaque induced (principal); R22.0 Localized swelling, mass and lump, head | CPT/HCPCS: 99212 ==

== ENCOUNTER 2025-03-16 12:49 | Emergency (ER) | payer OTHER, SELFPAY ==
--- NOTE | ~2025-03-16 | CT_ITS ---
EXAMINATION: CT FACIAL BONES WITH CONTRAST CLINICAL INFORMATION: Right facial swelling. Rule out abscess. COMPARISON: None available. TECHNIQUE: Axial images through the facial bones following IV contrast. Patient received 65 mL Omnipaque 350 IV contrast. Sagittal and coronal reconstructions on the technologist work station were performed. This CT examination was performed using dose optimization techniques as appropriate, variously including the following: *Automated exposure control *Adjustment of mA and/or kV according to patient size (this includes techniques or standardized protocols for targeted exams where dose is matched to indication/reason for exam; i.e. extremities or head) *Use of iterative reconstruction technique DLP 8 5 6 mgy/cm FINDINGS: There is a skin thickening and stranding of the fat of the right face over the mandible. There is a small amount of fluid overlying the right masseter muscle and deep to the right platysma measuring 1.0 x 1.7 x 1.8 cm in transverse AP and longitudinal dimension for example axial image 20 series 4 and coronal reconstructed image 136 series 7. Appearance is questionable for small or developing abscess. There is poor dentition. There are multiple dental caries seen in remaining right posterior lower molars. Infection may be dental in origin. No periapical abscess seen. Visualized paranasal sinuses are clear. The ostiomeatal complexes are patent bilaterally. The orbits are normal. The temporomandibular joints are normal. The mastoid air cells are clear. Visualized intracranial structures are normal. The naso, evan-and hypopharynx and larynx are normal. The visualized thyroid gland is normal. There is diffuse shotty cervical lymphadenopathy greatest in the submental and bilateral submandibular regions. This is likely reactive. No enlarged lymph nodes. Visualized salivary glands are normal. Vascular structures are normal. The small collateral vessels in the anterior right neck. The visualized cervical spine is normal. CT/CT facial bones w IV con IMPRESSION: Skin thickening and fat stranding of the right lower face overlying the mandible. Small fluid fluid collection/question early abscess superficial to the the right masseter muscle and deep to the platysma muscle measuring 1 x 1.7 x 1.8 cm. Poor dentition with multiple dental caries. Infection may be odontogenic in origin. Shotty likely reactive lymphadenopathy. Electronically signed by: Lu Pavon MD 03/16/2025 03:31 PM EDT
[2025-03-16 13:00] VITALS: BP 143/82; PULSE 84; RESP 18; TEMP 36.6; O2SAT 96; BMI 49.0
--- NOTE | 2025-03-16 13:06 | ED.GENADULT ---
HPI - General Adult General Chief complaint: Dental/Oral Stated complaint: iv antibiotics Time Seen by Provider: 03/16/25 13:12 History of Present Illness ED Provider: Librado Mckeon MD HPI narrative: 29-year-old female with history of MDD, PTSD, previous PUD IV drug use in the past with 4 days of right facial swelling. Came from the dentist's office if feels he needs IV antibiotics the patient has some pain with swelling under the and significant right-sided facial pain and swelling. No headache she has not had anything to eat today. No fever measured. She has been on clindamycin 450 t.i.d. feels it is still getting worse despite 4 days of this. Dentist feel she needs molar extraction Related Data Home Medications ?Medication ?Instructions ?Recorded ?Confirmed methadone 10 mg/mL oral 128 mg PO DAILY 10/30/23 03/16/25 concentrate (Methadone Intensol) Previous Rx's ?Medication ?Instructions ?Recorded aripiprazole 20 mg tablet (Abilify) 20 mg PO DAILY 30 days #30 tabs 08/27/24 fluoxetine 20 mg capsule 20 mg PO DAILY 30 days #30 caps 08/27/24 gabapentin 300 mg capsule 300 mg PO TID 30 days #90 caps 08/27/24 lorazepam 0.5 mg tablet 0.5 mg PO BID PRN severe anxiety 7 08/27/24 days #14 tabs trazodone 100 mg tablet 100 mg PO BEDTIME PRN insomnia 30 08/27/24 days #30 tabs acetaminophen 500 mg capsule 1,000 mg (2 x 500 mg) PO Q6-8H PRN 01/12/25 pain #20 caps cefpodoxime 200 mg tablet 200 mg PO Q12H #14 tabs 01/12/25 metronidazole 500 mg tablet 500 mg PO Q8H #21 tabs 01/12/25 cefpodoxime 200 mg tablet 200 mg PO BID 7 days #14 tabs 03/16/25 diclofenac sodium 75 mg 75 mg PO BID pain 10 days #20 tabs 03/16/25 tablet,delayed release doxycycline hyclate 100 mg capsule 100 mg PO BID tooth infection #20 03/16/25 caps morphine 15 mg immediate release 15 mg PO BID PRN pain #7 tabs 03/16/25 tablet Allergies Allergy/AdvReac Type Severity Reaction Status Date / Time Penicillins (PENICILLINS) Allergy Unknown Hives Verified 03/16/25 13:04 haloperidol AdvReac Severe Anaphylaxis Verified 03/16/25 13:04 [facility] Past Medical History Medical History Cellulitis of right wrist Paranoia Agitation Mood disorder Substance induced mood disorder Drug-induced psychotic disorder Asthma Social History Social History Household Members: None Household Members Other:: Homeless Housing: Homeless Housing Other:: Homeless living w/ cousins Do you presently have visiting nurse or other home services: No Alcohol intake: current Alcohol intake frequency: a few times a week Comment: bed 1 Patient Tobacco Use Status: Former Tobacco user Tobacco use type: Cigarette Cigarette Packs Per Day: 0 Cigarettes Per Day: 8 Years Smoked: 10 e-Cigarette/Vaping Use: Currently Using Second Hand Smoke Exposure: No Substance Use Type: Marijuana Advance Directives Date on File: 03/05/22 service: No Sexual orientation: Straight/Heterosexual Physical Exam ED Exam Exam: GENERAL: Well appearing. No apparent distress. Alert. HEAD/NECK: No visual trauma. EYES: Normal to inspection. No conjunctival erythema. No discharge. ENMT: Hearing grossly normal. External nose normal. Significant right-sided facial swelling. Trismus to about 2 fingers. Poor dentition. No gingival discharge. No hot potato voice or stridor neck is supple trachea midline RESPIRATORY: Respiratory effort normal. CARDIOVASCULAR: Additional details (Grossly well perfused). SKIN: No jaundice. NEUROLOGICAL: Alert. Moving all extremities x4. Additional details (No gross motor deficits. Normal tone. ). PSYCHIATRIC: Alert. Appearance appropriate for situation. Vital Signs: Vital Signs - 24 hr 03/16/25 13:00 03/16/25 16:24 Temperature 97.9 F 97.9 F Pulse Rate 84 84 Respiratory Rate 18 18 Blood Pressure 143/82 H 143/82 H Pulse Oximetry 96 96 Oxygen Delivery Method Room Air Room Air BMI result Body Mass Index 49.0 Course Course Course Narrative: RME: 29 yold female sent from dentists for IV antibiotics due to worsening right facial swelling due to poor dentition that needs to be extracted. labs ordered Medications Administered Discontinued Medications Generic Name Dose Route Start Last Admin Trade Name Freq PRN Reason Stop Dose Admin Sodium Chloride 1,000 mls @ 999 mls/hr 10/28/25 14:30 03/16/25 16:24 Ns IV 03/16/25 15:30 Infused .Q1H1M JOHN Infusion Ceftriaxone Sodium 2 gm/ 50 mls @ 100 mls/hr 03/16/25 14:21 03/16/25 15:43 Sodium Chloride IV 03/16/25 14:50 Infused ONCE ONE Infusion Iohexol 100 ml 03/16/25 15:04 03/16/25 15:04 Iohexol 350 Mg/Ml 100 Ml Infus..Btl IV 03/16/25 15:05 65 ml ONCE ONE Administration Procedures Procedure Narrative Procedure Narrative: Ultrasound Guided Peripheral Intravenous Catheter Placement Indication: Intravenous Access Location: Right ??Vascular Location of Catheter Tip: Basilic Provider: Self I was approached by nursing staff and informed that multiple unsuccessful attempts had been made to establish IV access in the patient. The patients arm was surveyed with the ultrasound for verification of vessel collapsibility, patency, depth and caliber, as well as identification of nearby structures. The target area was prepped with chlorhexidine. A tourniquet was placed proximally on the extremity. Under real-time ultrasound guidance, an [20 G 2.25 inch AccuCath nontunneled catheter] ? was advanced into the target vein. Dark blood was visualized in the flash chamber. The catheter was easily advanced into the vein. The catheter was evacuated of air and flushed with sterile saline. The catheter was secured in place with a tegaderm. The patient tolerated the procedure well and there were no complications. Estimated Blood Loss: 1mL Total Time for Procedure: 5min Images Stored CPT: 39286; 59087 Medical Decision Making Medical Decision Making MDM Narrative: Medical Decision Makin-year-old female with likely odontogenic facial abscess. CT blood culture IV ceftriaxone. The patient has had hives to penicillins without an anaphylaxis history ceftriaxone is a reasonable choice particularly been she is on clindamycin with worsening for infection. No sepsis criteria. CT below with no airway involvement or neck or deep space infection.MPRESSION: Skin thickening and fat stranding of the right lower face overlying the mandible. Small fluid fluid collection/question early abscess superficial to the the right masseter muscle and deep to the platysma muscle measuring 1 x 1.7 x 1.8 cm. Poor dentition with multiple dental caries. Infection may be odontogenic in origin. Shotty likely reactive lymphadenopathy. Preliminary Favored Differential Diagnosis: Facial abscess, odontogenic abscess, sublingual or retropharyngeal abscess unlikely but considered among additional considered etiologies Testing Interpreted Independently: ?See below for details Radiology or Lab testing Results Reviewed: ?See below for details Consults: ?See below for details Independent Historians/External Chart Reviews: ?See below for details Social Determinants of Health Impacting MDM/Planning: ?See below for details Lab Data MDM Lab Attestation statement: I reviewed the patient's lab results. 03/16/25 14:23 03/16/25 14:23 Labs: Lab Results 03/16/25 03/16/25 Range/Units 14:23 14:37 WBC 6.3 (4.8-10.8) X10*3/uL RBC 4.26 (4.20-5.50) X10*6/uL Hgb 10.7 L (12.0-16.0) g/dl Hct 33.0 L (37.0-47.0) % MCV 77.5 L (80.0-98.0) fL MCH 25.1 L (27.0-33.0) pg MCHC 32.4 (31.0-35.0) g/dl RDW 14.2 (11.0-16.0) % Plt Count 206 (160-400) X10*3/uL MPV 10.0 (9.4-12.3) fL Immature Gran % (Auto) 0.3 (0.0-0.4) % Neut % (Auto) 52.4 (45-73) % Lymph % (Auto) 31.6 (20-40) % Dade % (Auto) 10.1 (2-11) % Eos % (Auto) 5.0 H (0-4) % Baso % (Auto) 0.6 (0-2) % Lymph # (Auto) 2.0 (1.2-4.9) X10*3/uL Dade # (Auto) 0.6 (0.1-1.2) X10*3/uL Eos # (Auto) 0.3 (0.0-0.4) X10*3/uL Baso # (Auto) 0.0 (0.0-0.2) X10*3/uL Abs Immat Gran (auto) 0.02 (0.00-0.03) X10*3/uL Absolute Neuts (auto) 3.3 (2.0-8.3) x10*3/uL Absolute Nucleated RBC 0.000 (0.0-0.012) X10*3/uL Nucleated RBC % (auto) 0.0 (0.0-0.2) /100WBC Sodium 138 (135-145) mmol/L Potassium 4.3 (3.3-5.1) mmol/L Chloride 101 (96-108) mmol/L Carbon Dioxide 31 H (22-29) mmol/L Anion Gap 10 L (12-20) BUN 12 (9-16) mg/dL Creatinine 0.64 (0.5-1.4) mg/dL Estim Creat Clear Calc 170.2 Estimated GFR > 60 Random Glucose 79 (60-115) mg/dL Lactic Acid 0.6 (0.5-2.0) mmol/L Calcium 8.8 (8.4-10.2) mg/dL Total Bilirubin 0.3 (0.0-1.0) mg/dL AST 38 H (5-31) U/L ALT 64 H (0-31) U/L Alkaline Phosphatase 151 H (39-117) U/L Total Protein 7.2 (6.5-8.0) g/dL Albumin 3.9 (3.5-5.0) g/dL Beta HCG, Quant < 2 mIU/mL Discharge Plan Discharge Clinical Impression: Dental abscess Patient Disposition: Home, Self-Care Instructions: Dental Abscess (ED) Additional Instructions: DISCHARGE DIAGNOSES: Dental abscess right side HISTORY OF PRESENTATION: ?4 days of pain swelling in the right side with dental infection. EMERGENCY DEPARTMENT COURSE,TESTS, TREATMENTS: While in the ED today in the emergency department you had broad-spectrum antibiotics by the IV. CT of the face was done which showed infection likely emanating from the tooth possibly with a very early abscess nearby the right sided jaw muscles. Blood cultures were drawn. DISCHARGE MEDICATIONS: ?[We have made no changes to your regular medication regimen] we have added pain control and oral antibiotics take as prescribed FOLLOW-UP: ?Call your primary or general physician soon as possible to discuss your symptoms, your ED visit and to discuss follow up plans Call your dentist he will need to follow up as soon as the antibiotic courses finished for dental extraction INSTRUCTIONS ?& RETURN PRECAUTIONS: If any symptoms change first call your primary physician, if it is after-hours your primary doctors office should have a provider exhaust emissions inspector you can speak with. If the symptoms are severe or very concerning to you then call 911 or return to the ED. Return for severe or worsening pain, inability to chew or tolerate food or liquids. Difficulty breathing change in your voice drolivg Librado Mckeon MD Emergency Physician [facility] Prescriptions: New cefpodoxime 200 mg tablet 200 mg PO BID 7 Days Qty: 14 0RF Rx Instructions: must administer with a meal/food morphine 15 mg tablet 15 mg PO BID PRN (Reason: pain) Qty: 7 0RF Rx Instructions: Partial Fill upon patient request. No Action methadone [Methadone Intensol] 10 mg/mL Concentrate 128 mg PO DAILY Patient Comments: Last dose verified from [facility] administration sheet Rx Instructions: [facility] [phone] trazodone 100 mg Tablet 100 mg PO BEDTIME PRN (Reason: insomnia) 30 Days Qty: 30 0RF lorazepam 0.5 mg Tablet 0.5 mg PO BID PRN (Reason: severe anxiety) 7 Days Qty: 14 2RF fluoxetine 20 mg Capsule 20 mg PO DAILY 30 Days Qty: 30 0RF aripiprazole [Abilify] 20 mg Tablet 20 mg PO DAILY 30 Days Qty: 30 0RF gabapentin 300 mg capsule 300 mg PO TID 30 Days Qty: 90 0RF cefpodoxime 200 mg tablet 200 mg PO Q12H Qty: 14 0RF Rx Instructions: must administer with a meal/food metronidazole 500 mg tablet 500 mg PO Q8H Qty: 21 0RF acetaminophen 500 mg capsule 1,000 mg PO Q6-8H PRN (Reason: pain) Qty: 20 0RF doxycycline hyclate 100 mg capsule 100 mg PO BID Qty: 20 0RF diclofenac sodium 75 mg tablet,delayed release (DR/EC) 75 mg PO BID 10 Days Qty: 20 0RF Rx Instructions: take it with food, DONT TAKE WITH ANY OTHER PAIN MEDICATION Interventions: ED Discharge Assessment Last Done: 03/16/25 16:24 Discharge Date/Time: 03/16/25 16:29 Print Language: Syriac
[2025-03-16 14:28] LABS: MANUAL DIFF FLAG NO
[2025-03-16 14:31] LABS: Hematocrit 33.0 % (37.0-47.0); Hemoglobin 10.7 g/dl (12.0-16.0); Imm Gran Abs Auto 0.02 X10*3/uL (0.00-0.03); Imm Gran Pct Auto 0.3 % (0.0-0.4); Lymphocytes Absolute Auto 2.0 X10*3/uL (1.2-4.9); Mean Corpuscular HGB Conc 32.4 g/dl (31.0-35.0); Mean Corpuscular Hemoglobin 25.1 pg (27.0-33.0); Mean Corpuscular Volume 77.5 fL (80.0-98.0); NRBC Abs Auto 0.000 X10*3/uL (0.0-0.012); NRBC Pct Auto 0.0 /100WBC (0.0-0.2); Platelet Count 206 X10*3/uL (160-400); Red Blood Count 4.26 X10*6/uL (4.20-5.50); White Blood Count 6.3 X10*3/uL (4.8-10.8)
[2025-03-16 14:52] LABS: Alanine Aminotransferase 64 U/L (0-31); Albumin Level 3.9 g/dL (3.5-5.0); Alkaline Phosphatase 151 U/L (39-117); Anion Gap 10 (12-20); Aspartate Amino Transferase 38 U/L (5-31); Blood Urea Nitrogen 12 mg/dL (9-16); Calcium 8.8 mg/dL (8.4-10.2); Carbon Dioxide 31 mmol/L (22-29); Chloride 101 mmol/L (96-108); Creatinine Clr Calc Pharmacy 170.2; Estimated Glomerular Filt Rate > 60; Potassium 4.3 mmol/L (3.3-5.1); Sodium 138 mmol/L (135-145); Total Protein 7.2 g/dL (6.5-8.0)
[2025-03-16] MEDS: iohexoL 350 MG/ML 100 ML INFUS..BTL IV (15:04)
--- NOTE | 2025-03-16 15:04 | PC.NURSE ---
patient a&ox3, rt facial swelling, pt stated she was difficult to get iv access, multiple attempts were tried- provider ended up doing US guided IV access, 1 set blood cultures obtained, per provider 2nd set is needed- called phlebotomy to try for second set. IVF hung per order, IV abx hung, pt awaiting ct scan, call dill within reach, plan of care ongoing
--- NOTE | 2025-03-16 15:43 | PC.NURSE ---
IVF continue to run slowly
[2025-03-16 16:24] VITALS: BP 143/82; PULSE 84; RESP 18; TEMP 36.6; O2SAT 96
== END 2025-03-16 16:29 | disposition home or self-care (01) ==
PROVIDERS: Physician Assistant; Emergency Provider Emergency Medicine
DX: K04.7 Periapical abscess without sinus (principal); R11.2 Nausea with vomiting, unspecified; R51.9 Headache, unspecified; Z79.899 Other long term (current) drug therapy; Z87.891 Personal history of nicotine dependence
CPT/HCPCS: 36415; 36556; 70487; 80053; 83605; 84702; 85025; 87040; 96361; 96374; 99284; 99285; J0696; Q9967

== ENCOUNTER → 2025-03-16 14:04 | Outpatient (BNV) | payer OTHER, SELFPAY | PROVIDERS: Emergency Provider Emergency Medicine; Visit Provider Radiology Diagnostic Radiology | DX: R22.0 Localized swelling, mass and lump, head (principal) | CPT/HCPCS: 70487 ==

== ENCOUNTER 2025-05-18 09:44 | Outpatient (REF) | payer OTHER, SELFPAY ==
[2025-05-18 14:59] LABS: Resp Syncy Virus RNA Qual PCR NEGATIVE (Negative); SARS COV2 PCR INHOUSE NEGATIVE (Negative)
== END 2025-05-18 09:45 ==
LOC: HO.LNP 09:44
PROVIDERS: Visit Provider Physician Assistant
DX: R10.13 Epigastric pain (principal); R11.2 Nausea with vomiting, unspecified; Z32.02 Encounter for pregnancy test, result negative
CPT/HCPCS: 81003; 81025; 82948; 87637; 99212

== ENCOUNTER 2025-05-18 09:44 | Outpatient (AMB) | payer OTHER, SELFPAY ==
[2025-05-18 09:57] VITALS: BP 126/84; PULSE 96; TEMP 36.6; O2SAT 97; BMI 47.4
--- NOTE | 2025-05-18 09:57 | MHC.OFFWIV ---
Intake Vital Signs 05/18/25 09:57 Height 5 ft 4 in Weight 276 lb BMI 47.4 BP 126/84 Blood Pressure Location Rt brachial Position Sitting Pulse 96 Pulse Source Pulse Oximeter Temp 97.9 F Temp Source Oral Pulse Oximetry (%) 97 Oxygen Delivery Method Room Air Intake Visit Reasons: EP-vomiting, stomach pain, chills Intake Note: pt presents with vomiting, stomach pain, body chills/sweats x3 days Patient Tobacco Use Status: Former Tobacco user Allergies Penicillins (PENICILLINS) Allergy (Unknown, Verified 05/18/25 10:00) Hives haloperidol Adverse Reaction (Severe, Verified 05/18/25 10:00) Anaphylaxis Do you need a note to return to daycare/school/sports/work: No HPI HPI Comments History of Present Illness Details Patient is a 29yo F who presents to office with abdominal pain and vomiting Yesterday she went to ER; EMS brought to [place] due to high blood sugar She said she originally went for abdominal pain, nausea and vomiting She went to the waiting room and had vitals taken. No blood work was completed. She said she was told via finger prick by EMS high sugar. She does not recall the sugar reading Pt states she has hx of drug abuse but has been clean for 10 months. Left without being seen yesterday She states yesterday onset nausea, vomiting, abdominal pain States multiple episodes of emesis. Still ongoing and last episode was around 830 this am Feels like it is getting better but feel dehydrated She started to take down liquids today She said constant abdominal pressure/tight. Pain level is 9/10 but was worse yesterday and is improving No abdominal surgeries No diarrhea Pt said + fever/chills (101 temp last night) Last dose Tylenol/Motrin, Pepto. Last tylenol/Motrin was this am No dysuria + urinary frequency LMP was 1 month ago, denies chance + congestion, cough PFSH Medical History Cellulitis of right wrist Paranoia Agitation Mood disorder Substance induced mood disorder Drug-induced psychotic disorder Asthma Social History Household Members: None Household Members Other:: Homeless Housing: Homeless Housing Other:: Homeless living w/ cousins Do you presently have visiting nurse or other home services: No Alcohol intake: current Alcohol intake frequency: a few times a week Comment: bed 1 Patient Tobacco Use Status: Former Tobacco user Tobacco use type: Cigarette Cigarette Packs Per Day: 0 Cigarettes Per Day: 8 Years Smoked: 10 e-Cigarette/Vaping Use: Currently Using Second Hand Smoke Exposure: No Substance Use Type: Marijuana Advance Directives Date on File: 03/05/22 service: No Sexual orientation: Straight/Heterosexual Review of Systems Const Reports chills, Reports fatigue, Reports fever(s) and Reports poor appetite ENT Denies otalgia, Reports nasal congestion and Denies sore throat Card Denies chest pain and Denies dyspnea Resp Denies dyspnea GI Reports abdominal pain, Denies melena, Denies hematochezia, Denies constipation, Denies diarrhea, Reports nausea and Reports vomiting Denies difficulty voiding, Denies dysuria, Denies urinary hesitancy, Denies urinary urgency and Reports other (urinary frequency) Endo Reports fatigue Physical Exam Exam Exam: General: Non-toxic, NAD. Speaking full sentences. Skin: Warm dry throughout Eye: EOMI, PERRL HENT: Airway patent. Uvula midline. No pharyngeal erythema or edema. No CHARGE ENTRY CLERK. Oral mucosa moist Bilateral canals clear. TM non-erythematous, non-bulging. No TM perforation or hemotympanum noted. Respiratory: CTA bilaterally. No wheezes, rales or rhonchi Cardiac: RRR. No murmur Abdominal: BS present x 4. No distension. Abdomen soft. Tenderness to deep palpation epigastric region. No rebound or guarding. Negative Hollywood sign. No lower abdominal ttp or ttp with light throughout. MSK: Full ROM extremities. Neurology: Alert. No aphasia or facial droop. Gait without abnormality Psych: Good mood and affect Vital Signs: Last Vital Signs Temp 97.9 F 05/18/25 09:57 Pulse 96 05/18/25 09:57 BP 126/84 05/18/25 09:57 Pulse Ox 97 05/18/25 09:57 Oxygen Delivery Method Room Air 05/18/25 09:57 BMI result Body Mass Index 47.4 Results AMB Random Glucose (hemocue) AMB Random Glucose (hemocue) 112 mg/dL Last Edit by Yvonne White CMA on 05/18/25 10:37 AMB Test Urine AMB Test Urine Negative Last Edit by Yvonne White CMA on 05/18/25 10:39 AMB Urinalysis, Automated UA Leukoctes 0 Medardo/uL Last Edit by Yvonne White CMA on 05/18/25 10:40 UA Nitrite Negative Last Edit by Yvonne White CMA on 05/18/25 10:40 UA Urobilinogen 0.2 mg/dL Last Edit by Yvonne White CMA on 05/18/25 10:40 UA Protein 15 mg/dL Last Edit by Yvonne White CMA on 05/18/25 10:40 UA pH 6.0 Last Edit by Yvonne White CMA on 05/18/25 10:40 UA Blood 200 Ángel/uL Last Edit by Yvonne White CMA on 05/18/25 10:40 3+ Yvonne White 05/18/25 10:40 UA Specific [place] 1.015 Last Edit by Yvonne White CMA on 05/18/25 10:40 UA Ketone Negative Last Edit by Yvonne White CMA on 05/18/25 10:40 UA Bilirubin 0 mg/dL Last Edit by Yvonne White CMA on 05/18/25 10:40 UA Glucose 0 mg/dL Last Edit by Yvonne White CMA on 05/18/25 10:40 Assessment & Plan Assessment & Plan (1) Abdominal pain: Code(s): R10.9 - Unspecified abdominal pain Qualifiers: Abdominal location: epigastric Qualified Code(s): R10.13 - Epigastric pain Plan: Patient seen and evaluated. BS present x 4 No rebound or guarding. No abdominal rigidity and vitals signs are stable and pt said improving from yesterday (2) Acute nausea with nonbilious vomiting: Code(s): R11.2 - Nausea with vomiting, unspecified Plan: POC glucose: 112 U/a: + blood and protein but negative glucose, nitrates or leukocytes * informed pt for blood and advised seeing PCP to ensure resolution. ? early menstruation? HCG: Negative Pt evaluated. Her glucose is not of concern at the moment as she has no ketones or glucose in urine Her HCG is negative and no other sign of urine infection Her abdomen is soft, non-distended and non-rigid. No concern for acute abdomen at this time She has no documented hx of prolong QT; I reviewed all EKGs in system since 2023 and all wnl. Will give short course of Zofran and advised to stay hydrated, increase fluids hydration and rest Will obtain covidlflu swab and send Discussed strict ER protocol for worsening abdominal pain, inability to keep fluids down, confusion, dizziness, extreme lethargy Pt gave verbal understanding and had no additional questions or concern at time of discharge Orders: Orders AMB Random Glucose (hemocue) Today Z13.9 - Encounter for screening, unspecified AMB HCG Urine Test Today Z13.9 - Encounter for screening, unspecified SARS-CoV2/FLU/RSV Today R11.2 - Nausea with vomiting, unspecified AMB Urinalysis Automated Today Z13.9 - Encounter for screening, unspecified Medications: New ondansetron HCl 4 mg PO Q8H PRN 5 tabs 0RF nausea and vomiting Coding Level of Care Code Est Pt Level 4 (76495) Diagnoses Epigastric pain R10.13 Abdominal location: epigastric Acute nausea with nonbilious vomiting R11.2
--- OUTSIDE RECORDS SUMMARY | 2025-05-18 12:32 | XMS_ITS | Clinical Summary ---
Author Organization [facility] [address] [address] [facility] Building Address [address] [place] [phone] Phone Care Team Providers Care Food And Beverage Associate Name Role Phone Andrey Pack MD Primary Care Provider [phone] Allergies Active Allergy Reactions Criticality Noted Date [...] 04/08/2024 Bacteremia 04/08/2024 Constipation 04/08/2024 Severe obesity 04/08/2024 Anxiety 03/03/2024 Depression 03/03/2024 Joint pain 03/03/2024 Subclinical hypothyroidism 05/16/2023 Therapeutic opioid-induced constipation (OIC) Chronic hepatitis C without hepatic coma 017 Chronic pain 06/05/2016 Polysubstance dependence 06/05/2016 Overview (03/03/2024): Started suboxone program, [facility] Methadone program 2020 Encounters Date Type Department Care Team Description 04/29/2025 Telephone Internal Medicine - [facility] [address] [place] [address] Andrey Pack MD from Last 3 Months Immunizations Immunization Administration Dates Next Due HPV, Quadrivalent 04/25/2007 Hep B, Unspecified 02/01/1994,1993 Hepatitis A Adult (Havrix; Vaqta) 19yo and older 11/25/2015 Hepatitis B (Ftsowbe-G-Mxovk , Recombivax HB-Adult) 19yo and older 11/25/2015 [...] not to disclose 2024 8:40 AM EDT Last Filed Vital Signs Vital Sign [...] Health Maintenance Due Date Last Done Comments Non-Opioid Controlled Substance Agreement 1993 Pneumococcal Vaccine: Pediatrics (0 to 5 Years) and At-Risk Patients (6 to 49 Years) (2 of 2 - PCV) 07/07/2016 07/07/2015 Cervical Cancer Screening: Pap Smear 01/05/2020 01/04/2017 Social Influencers of Health Screening 04/21/2022 Depression Screening 05/20/2024 06/25/2023 COVID-19 Vaccine (2 - season) 2025 08/02/2021 Influenza Vaccine (#1) 2025 7, 06/05/2016, 04/07/2007 Drug Screen 08/14/2025 08/14/2024, 08/08/2024 DTaP,Tdap,and Td Vaccines (2 - Td or [...] PM EDT Hepatitis C antibody test positive DRUG ABUSE SCREEN 8A PANEL, URINE STAT 08/14/2024 2:18 PM EDT DEPRESSION SCREENING Routine 06/25/2023 LIPID PANEL Routine 05/14/2023 HIV SCREENING Routine 12/10/2018 PAP SMEAR Routine 01/04/2017 from Last 3 Months or Most Recently Relevant to Health Maintenance Results * Hepatitis C virus quantitative molecular study (11/16/2024 4:24 PM EDT) HCV Qual Interp Not Detected Not Detected LAB MOLECULAR DIAGNOSTICS METHOD 11/17/2024 11:14 AM EDT [facility] Comment:HCV RNA not detected , unable to report quantitative results. Blood Venous blood specimen / Unknown Venipuncture / Unknown 11/16/2024 4:24 PM EDT 11/16/2024 4:25 PM EDT us Andrey Pack MD LAB BLOOD ORDERABLES Final Resu lt [facility] [address] [place] [address], [place] [phone] * (ABNORMAL) Drug abuse screen 8a panel, urine (08/14/2024 2:18 PM EDT) Amphetamine Screen, Ur Negative Negative LAB CHEMISTRY METHOD 5 4:23 PM [facility] Comment:Certain OTC medicati ons containing ephedrine, phenylephrine, pseudoephedrine and phenylpropanolamine can cause false positive results. Barbiturate Screen, Ur Negative Negative LAB CHEMISTRY METHOD 5 4:23 PM [facility] Benzodiazepine Screen, Ur Negative Negative LAB CHEMISTRY METHOD 5 4:23 PM [facility] Cocaine Screen, Ur Positive(A ) Negative LAB CHEMISTRY METHOD 5 4:23 PM [facility] Opiate Screen, Ur Positive(A ) Negative LAB CHEMISTRY METHOD 5 4:23 PM [facility] Cannabinoid (THC) Screen, Ur Negative Negative LAB CHEMISTRY METHOD 5 4:23 PM [facility] Comment:Specimens from patie nts taking pantoprazole sodium (Protonix) have been shown to produce false positive results. Oxycodone Screen, Ur Negative Negative LAB CHEMISTRY METHOD 5 4:23 PM [facility] Fentanyl, Ur Positive(A ) Negative LAB CHEMISTRY METHOD 5 4:23 PM [facility] Urine Urine specimen obtained by clean catch procedure / Unknown Non-blood Collection / Unknown 08/14/2024 2:18 PM EDT 08/14/2024 3:25 PM EDT Narrative [facility] - 08/14/2024 4:23 PM EDT Assay cutoffs: Amphetamines 1000 ng/mL Barbiturates 200 ng/mL Benzodiazepines 200 ng/mL Cocaine 300 ng/mL Fentanyl 1 ng/mL Opiates 300 ng/mL Oxycodone 100 ng/mL THC 50 ng/mL Semi-quantitative assay for screening purposes only. Unconfirmed screening result should not be used for non-medical purposes. *ALTERNATE METHOD CONFIRMATION DONE UPON REQUEST ONLY* Angel Dolan MD LAB URINE ORDERABLES Final Resu lt [facility] [address] [place] [address], [place] [phone] * Depression Screening (06/25/2023) Pathologist [facility] Depression Screening Abstracted Historical Provider HEALTH MAINTENANCE Final Result * (ABNORMAL) Lipid panel (05/14/2023) [facility] LDL/HDL Ratio 3 0 - 4 Triglycerides 164(A) 0 - 150 mg/dL Cholesterol 161 0 - 200 mg/dL HDL 51 >=40 mg/dL LDL Cholesterol 78 0 - 100 mg/dL Blood Venous blood specimen / Unknown Historical Provider LAB BLOOD ORDERABLES Teena l Result * HIV Screening (12/10/2018) [facility] HIV Screening Abstracted Historical Provider HEALTH MAINTENANCE Final Result * Pap Smear (01/04/2017) [facility] Pap smear abstracted ,negative Historical Provider HEALTH MAINTENANCE Final Result from Last 3 Months or Most Recently Relevant to Health Maintenance Insurance [facility] [place] [address] Care Teams Food And Beverage Associate Relationship Specialty Start Date End Date Andrey Pack MD [address] [facility] [place] [address] PCP - General Internal Medicine 03/10/21
--- OUTSIDE RECORDS SUMMARY | 2025-05-18 12:32 | XMS_ITS | Clinical Summary ---
Author Organization [employer] Address [address] [place] [address] Care Team Providers Care Senior It Recruiter Name Role Phone Unavailable Primary Care Provider [...] (09/29/2024): Started suboxone program, [facility] Methadone program 2019 Encounters Date Type Department Care Team Description 03/16/2025 11:30 AM EDT Office Visit [facility] [address] [place] [address] [phone] Donald Tuttle DMD from Last 3 Months Social History Tobacco [...] AM EDT from Last 3 Months [facility] STAND ADULT
--- OUTSIDE RECORDS SUMMARY | 2025-05-18 12:32 | XMS_ITS | Encounter Summary ---
Author Organization [employer] Address [address] [facility] [address] [place] [address] Care Team Providers Care Peer Tutor Name Role Phone Unavailable Primary Care Provider Unavailabl e Reason for Visit * Reason Comments Med Refill Encounter Details Date Type Department Care Team (Late st Contact Info) Description 12/17/2024 Refill [facility] [address] [place], [place] [phone] Figueroa Verma BDS [address] [place], [place] [phone] Social History Tobacco Use Types Packs/Day Years [...]
--- OUTSIDE RECORDS SUMMARY | 2025-05-18 12:32 | XMS_ITS | Clinical Summary ---
Author Organization [address] Address [address] [place] [phone] Care Team Providers Care Sewage Plant Operator Name Role Phone Desi Hong MD Primary [...] 2013 Influenza vaccine 12/18/2024 Covid-19 vaccine series (2024- season) 2025 Meningococcal B Vaccine Aged Out No l onger eligible based on patient's age to complete this topic Meningococcal Vaccine Aged Out No obed rafael eligible based on patient's age to complete this topic Pneumococcal Vaccine (2 - 49 years) Aged Out No longer eligible based on patient's age to complete this topic Insurance [id number]-[id number] MEDICAID [id number] MEDICAID [id number] MEDICAID [id number] MEDICAID Care Teams Sewage Plant Operator Relationship Specialty Start Date End Date Desi Hong MD PCP - General Pediatrics 09/09/13
== END 2025-05-18 11:16 | disposition home or self-care (01) ==
PROVIDERS: Visit Provider Physician Assistant
DX: R10.13 Epigastric pain (principal); R11.2 Nausea with vomiting, unspecified; Z13.9 Encounter for screening, unspecified

== ENCOUNTER 2025-05-19 07:24 | Emergency (ER) | payer OTHER, SELFPAY ==
[2025-05-19 07:34] VITALS: BP 160/100; BP 185/110; PULSE 79; RESP 18; TEMP 36.7; O2SAT 97; BMI 47.5
--- OUTSIDE RECORDS SUMMARY | 2025-05-19 07:51 | XMS_ITS | Encounter Summary ---
Author Organization [facility] Address [address] [place] [phone] Care Team Providers Care Healthcare Project Manager Name Role Phone Andrey Pack MD Primary Care Provider [phone] Reason for Visit * Reason Onset Date Comments Flu Symptoms 05/18/2025 Blood in Urine 05/18/2025 Hyperglycemia 05/18/2025 Encounter Details Date Type Department Care Team (Late st Contact Info) Description 05/18/2025 Telephone Internal [facility] [address] [place] [phone] Andrey Pakc MD [address] [place] [address] Social History Tobacco Use Types Packs/Day Years [...] not to disclose 2024 8:40 AM EDT documented as of this encounter Progress Notes * Lottie Nazario MA - 05/18/2025 3:20 PM EST Tried calling pt but went straight to , which is full. When she calls back please transfer to [phone]. [phone] or A side. * Andrey Pack MD - 05/18/2025 3:13 PM EST Agree with recs. Need to call urgent call for that. * Naomi Villanueva RN - 05/18/2025 2:28 PM EST spoke to pt-reports of going to an ext. [facility] today wherein her urine and bld sample was taken and was told to call them later today for results.she was prescribed zofran For nausea with some relief. she reports of bld in urine with n&v. advised to call the u.c. for results and tx. advised to callback office if not successful with call. * Dar Ruth - 05/18/2025 12:46 PM EST Symptoms patient is presenting: pt c/o flu sx. Bood in urine and elevated blood sugar. Pt was seen today @ [facility] clinic and told to f/u with pcp For ALL patients calling to schedule any appointment (routine, sick visit, follow up, consult, etc.) in the outpatient setting please ask the following questions: Do you have fever of higher than 101, sore throat with difficulty swallowing or severe shortness ofbreath? NO If YES to any of these above symptoms, send a message to triage and do not book. Red dot. If no, an audio or video visit should be booked. Have you had close contact with someone with Coronavirus in the last 14 days? NO Have you traveled abroad? NO Have you traveled recently to another state outside of [place], [place], [place], [place], [place], [place], [place]? NO o If yes, did you quarantine for 14 days or have a negative covid test? NO If yes to any of the above, patient is not to be scheduled in office until after 14 day quarantine or negative covid test. If pain or injury related was it due to an accident at work or from a motor vehicle accident? NO If yes, gather 3rd green party insurance information Date of accident/Injury: n/a How long has patient had these symptoms?: 2 days ago PCP: Sirena Payor: Rambo documented in this encounter Plan of Treatment Not on file documented as of this encounter Visit Diagnoses Not on filedocumented in this encounter Care Teams Healthcare Project Manager Relationship Specialty Start Date End Date Andrey Pack MD [address] [place] [address] [place] [address] PCP - General Internal Medicine 03/10/21 documented as of this encounter
--- OUTSIDE RECORDS SUMMARY | 2025-05-19 07:51 | XMS_ITS | Encounter Summary ---
Author Organization [employer] Address [address] [facility] [address] [place] [address] Care Team Providers Care Copier Field Service Technician Name Role Phone Unavailable Primary Care Provider Unavailabl e Reason for Visit * Reason Comments Med Refill Encounter Details Date Type Department Care Team (Late st Contact Info) Description 12/17/2024 Refill [facility] [address] [place], [place] [phone] Figueroa Verma BDS [address] [place], [place] [phone] Social History Tobacco Use Types Packs/Day Years [...]
--- OUTSIDE RECORDS SUMMARY | 2025-05-19 07:51 | XMS_ITS | Clinical Summary ---
Author Organization [place] [address] [facility] Address [address] [place] [phone] Phone Care Team Providers Care Sand Hauler Name Role Phone Andrey Pack MD Primary Care Provider [phone] Allergies Active Allergy Reactions Criticality Noted Date [...] Encounters Date Type Department Care Team Description 05/18/2025 [facility] [address] [place] [id number] Andrey Pack MD 04/29/2025 Telephone Internal Medicine - [facility] [address] [place] [id number] Andrey Pack MD from Last 3 Months Immunizations Immunization Administration Dates Next Due HPV, Quadrivalent 04/25/2007 Hep B, Unspecified 02/01/1994,1993 Hepatitis A Adult (Havrix; Vaqta) 19yo and older 11/25/2015 Hepatitis B (Ugnodxg-G-Jmbgy , Recombivax HB-Adult) 19yo and older 11/25/2015 [...] MOLECULAR DIAGNOSTICS METHOD 11/17/2024 11:14 AM EDT [facility] Comment:HCV RNA not detected , unable to report quantitative results. Blood Venous blood specimen / Unknown Venipuncture / Unknown 11/16/2024 4:24 PM EDT 11/16/2024 4:25 PM EDT us Andrey Pack MD LAB BLOOD ORDERABLES Final Resu lt [facility] [address] [place] [address], [place] [phone] * (ABNORMAL) Drug abuse screen 8a panel, urine (08/14/2024 2:18 PM EDT) [facility] Amphetamine Screen, Ur Negative Negative [facility]:Certain OTC medicati ons containing ephedrine, phenylephrine, pseudoephedrine and phenylpropanolamine can cause false positive results. Barbiturate Screen, Ur Negative Negative LAB CHEMISTRY METHOD 5 4:23 PM EDT [facility] Benzodiazepine Screen, Ur Negative Negative LAB CHEMISTRY METHOD 5 4:23 PM [facility] Cocaine Screen, Ur Positive(A ) Negative LAB CHEMISTRY METHOD 5 4:23 PM [facility] Opiate Screen, Ur Positive(A ) Negative LAB CHEMISTRY METHOD 5 4:23 PM [facility] Cannabinoid (THC) Screen, Ur Negative Negative LAB CHEMISTRY METHOD 5 4:23 PM [facility] Comment:Specimens from patie nts taking pantoprazole sodium (Protonix) have been shown to produce false positive results. Oxycodone Screen, Ur Negative Negative LAB CHEMISTRY METHOD 5 4:23 PM [facility] Fentanyl, Ur Positive(A ) Negative LAB CHEMISTRY METHOD 5 4:23 PM [facility] Urine Urine specimen obtained by clean catch procedure / Unknown Non-blood Collection / Unknown 08/14/2024 2:18 PM EDT 08/14/2024 3:25 PM EDT [facility] - 08/14/2024 4:23 PM EDT Assay [...] MD LAB URINE ORDERABLES Final Resu lt [facility] [address] [place] [address], * Depression Screening (06/25/2023) [facility] Depression Screening Abstracted Historical Provider HEALTH MAINTENANCE Final Result * (ABNORMAL) Lipid panel (05/14/2023) [facility] LDL/HDL Ratio 3 0 - 4 Triglycerides 164(A) 0 - 150 mg/dL Cholesterol 161 0 - 200 mg/dL HDL 51 >=40 mg/dL LDL Cholesterol 78 0 - 100 mg/dL Blood Venous blood specimen / Unknown Historical Jorje COHN LAB BLOOD ORDERABLES Teena l Result * HIV Screening (12/10/2018) [facility] HIV Screening Abstracted Historical Provider HEALTH MAINTENANCE Final Result * Pap Smear (01/04/2017) [facility] Pap smear abstracted ,negative Historical Provider HEALTH MAINTENANCE Final Result from Last 3 Months or Most Recently Relevant to Health Maintenance Insurance [facility] Care Teams Sand Hauler Relationship Specialty Start Date End Date Andrey Pack MD [address] [place] [address] [place] [address] PCP - General Internal Medicine 03/10/21
--- OUTSIDE RECORDS SUMMARY | 2025-05-19 07:51 | XMS_ITS | Clinical Summary ---
Author Organization [address] Address [address] [place] [phone] Care Team Providers Care Log Carrier Operator Name Role Phone Desi Hong MD [...] patient's age to complete this topic Insurance [id number] MEDICAID [id number] MEDICAID [id number] MEDICAID [id number] MEDICAID Care Teams Log Carrier Operator Relationship Specialty Start Date End Date Desi Hong MD PCP - General Pediatrics 09/09/13
--- OUTSIDE RECORDS SUMMARY | 2025-05-19 07:51 | XMS_ITS | Clinical Summary ---
Author Organization [employer] Address [address] [facility] [address] [place] [address] Care Team Providers Care Filling Separator Name Role Phone Unavailable Primary Care Provider [...] Description 03/16/2025 11:30 AM EDT Office Visit [facility] [address] [place] [address] [phone] Donald Tuttle DMD from Last 3 Months [...] AM EDT from Last 3 Months Insurance [facility] STAND ADULT
--- NOTE | 2025-05-19 08:14 | ED.ABDPAIN ---
HPI - Abdominal Pain General Chief Complaint: Abdominal Pain Stated Complaint: flu symptoms, vomiting, failed iv, freq thirst/uri Time Seen by Provider: 05/19/25 07:43 Source: patient Mode of arrival: ambulatory Limitations: no limitations History of Present Illness ED Provider: Dr. Nmeesio Remy HPI narrative: 29-year-old female past medical history of substance use disorder, PTSD, skin abscesses, depression, alcohol use disorder, asthma who presents emergency department for evaluation of 4 days of nausea, vomiting and abdominal pain. Patient states she has not been able to eat or drink 4 days secondary to her nausea and vomiting. She states she is feeling weak, dizzy and lightheaded. She is also complaining of upper abdominal pain which she describes as a constant, severe pressure-like pain. Yesterday, the patient went to [facility] ED but left prior to being seen, she was seen at our walk-in clinic 05/18/2025. The patient had a negative test. She was given Zofran for nausea and discharged home with diagnosis of epigastric abdominal pain, nausea and vomiting. Patient states she was given oral Zofran and not the dissolvable tablet, she states that anytime she small in his medications she vomited. Related Data Home Medications ?Medication ?Instructions ?Recorded ?Confirmed methadone 10 mg/mL oral 128 mg PO DAILY 10/30/23 03/16/25 concentrate (Methadone Intensol) lorazepam 0.5 mg tablet 1 mg PO BID severe anxiety 05/18/25 Previous Rx's ?Medication ?Instructions ?Recorded aripiprazole 20 mg tablet (Abilify) 20 mg PO DAILY 30 days #30 tabs 08/27/24 fluoxetine 20 mg capsule 20 mg PO DAILY 30 days #30 caps 08/27/24 gabapentin 300 mg capsule 300 mg PO TID 30 days #90 caps 08/27/24 acetaminophen 500 mg capsule 1,000 mg (2 x 500 mg) PO Q6-8H PRN 01/12/25 pain #20 caps diclofenac sodium 75 mg 75 mg PO BID pain 10 days #20 tabs 03/16/25 tablet,delayed release ondansetron HCl 4 mg tablet 4 mg PO Q8H PRN nausea and 05/18/25 vomiting #5 tabs omeprazole 20 mg capsule,delayed 20 mg PO DAILY #30 caps 05/19/25 release ondansetron 4 mg disintegrating 4 mg PO Q8H PRN nausea and 05/19/25 tablet vomiting #14 tabs promethazine 25 mg rectal 25 mg AK Q6H PRN Nausea, vomiting 05/19/25 suppository #12 ea Allergies Allergy/AdvReac Type Severity Reaction Status Date / Time Penicillins (PENICILLINS) Allergy Unknown Hives Verified 05/19/25 07:38 haloperidol AdvReac Severe Anaphylaxis Verified 05/19/25 07:38 Review of Systems Review of Systems Yes all other systems are reviewed and are negative [facility] Past Medical History Medical History Cellulitis of right wrist Paranoia Agitation Mood disorder Substance induced mood disorder Drug-induced psychotic disorder Asthma Social History Social History Household Members: None Household Members Other:: Homeless Housing: Homeless Housing Other:: Homeless living w/ cousins Do you presently have visiting nurse or other home services: No Alcohol intake: current Alcohol intake frequency: a few times a week Comment: bed 1 Patient Tobacco Use Status: Former Tobacco user Tobacco use type: Cigarette Cigarette Packs Per Day: 0 Cigarettes Per Day: 8 Years Smoked: 10 e-Cigarette/Vaping Use: Currently Using Second Hand Smoke Exposure: No Substance Use Type: Marijuana Advance Directives: No Advance Directives Information Provided: Yes Advance Directives Date on File: 03/05/22 service: No Sexual orientation: Straight/Heterosexual Physical Exam ED Vital Signs: Vital Signs - 24 hr 05/19/25 07:34 Temperature 98.1 F Pulse Rate 79 Respiratory Rate 18 Blood Pressure 185/110 H Pulse Oximetry 97 Oxygen Delivery Method Room Air BMI result Body Mass Index 47.5 Vital signs revealed an elevated blood pressure of 185/110 otherwise unremarkable Exam: General: Awake, in mild why distress secondary to her abdominal pain Head: Normocephalic, atraumatic EENT: PERRL, sclera and conjunctiva are normal, mouth with no erythema or exudates Neck: Supple, no adenopathy Lung: breath sounds symmetric, no wheezing, no rales and no rhonchi Chest: symmetric movement, nontender Heart: regular rate and rhythm, normal S1, S2 no murmurs or rubs Abdomen: soft, mild to moderate epigastric tenderness, nondistended, normal bowel sounds Back: no vertebral tenderness, no CVAT Extremities: no deformities, moves all extremities symmetrically, no edema Neuro: Awake, alert, oriented, normal speech, cranial nerves 2-12 intact, moves all extremities symmetrically Psych: Pleasant, cooperative Medical Decision Making Medical Decision Making [facility] Narrative: 29-year-old female past medical history of substance use disorder, PTSD, skin abscesses, depression, alcohol use disorder, asthma who presents emergency department for evaluation of 4 days of nausea, vomiting and abdominal pain. Patient states she has not been able to eat or drink 4 days secondary to her nausea and vomiting. She states she is feeling weak, dizzy and lightheaded. She is also complaining of upper abdominal pain which she describes as a constant, severe pressure-like pain. Vital signs revealed an elevated blood pressure otherwise unremarkable. Exam did reveal mild to moderate epigastric tenderness. Differential diagnosis: ?Includes but is not limited to viral syndrome, COVID-19, influenza, RSV, gastritis, pancreatitis, anemia, electrolyte abnormalities Course: 13:21 My independent interpretation patient's laboratory evaluation is as follows: CBC was normal. CMP revealed an elevated AST and ALT of 41 and 50-this has not significant. Patient's lipase was normal. COVID-19, influenza and RSV tests were negative. Urine test was negative. Urinalysis was positive for blood and protein. Microscopic revealed 6-10 RBCs, 0-5 WBCs and no bacteria-no evidence for urinary tract infection. Patient's presentation is consistent with a an acute viral syndrome. The patient is treated with normal saline IV x1 L, hydromorphone 1 mg IV and Zofran 4 mg IV. The patient is feeling significantly better at this time. She was able to drink fluid without vomiting. Patient was discharged home with prescriptions for Zofran ODT 4 mg every 6 hours, Phenergan (promethazine) 25 mg suppositories, 1 per rectum every 6-8 hours as needed for nausea vomiting, Prilosec 20 mg daily for 1 month. Patient was given printed and verbal instructions and discharged home in the care of her father. Differential Diagnosis Differential Diagnoses: The differential diagnosis associated with the presentation includes (See above) Admission/Observation Consideration of admission/observation: Escalation of care including admission/observation considered (Yes) Lab Data [facility] Lab Attestation statement: I reviewed the patient's lab results. 05/19/25 08:36 05/19/25 10:00 Labs: Lab Results 05/19/25 05/19/25 05/19/25 Range/Units 08:32 08:36 08:58 WBC 8.9 (4.8-10.8) X10*3/uL RBC 4.89 (4.20-5.50) X10*6/uL Hgb 12.0 (12.0-16.0) g/dl Hct 37.5 (37.0-47.0) % MCV 76.7 L (80.0-98.0) fL MCH 24.5 L (27.0-33.0) pg MCHC 32.0 (31.0-35.0) g/dl RDW 14.3 (11.0-16.0) % Plt Count 231 (160-400) X10*3/uL MPV 9.8 (9.4-12.3) fL Immature Gran % (Auto) 0.5 H (0.0-0.4) % Neut % (Auto) 79.0 H (45-73) % Lymph % (Auto) 13.7 L (20-40) % Dillon % (Auto) 5.8 (2-11) % Eos % (Auto) 0.5 (0-4) % Baso % (Auto) 0.5 (0-2) % Lymph # (Auto) 1.2 (1.2-4.9) X10*3/uL Dillon # (Auto) 0.5 (0.1-1.2) X10*3/uL Eos # (Auto) 0.0 (0.0-0.4) X10*3/uL Baso # (Auto) 0.0 (0.0-0.2) X10*3/uL Abs Immat Gran (auto) 0.04 H (0.00-0.03) X10*3/uL Absolute Neuts (auto) 7.0 (2.0-8.3) x10*3/uL Absolute Nucleated RBC 0.000 (0.0-0.012) X10*3/uL Nucleated RBC % (auto) 0.0 (0.0-0.2) /100WBC Sodium (135-145) mmol/L Potassium (3.3-5.1) mmol/L Chloride (96-108) mmol/L Carbon Dioxide (22-29) mmol/L Anion Gap (12-20) BUN (9-16) mg/dL Creatinine (0.5-1.4) mg/dL Estim Creat Clear Calc Estimated GFR Random Glucose (60-115) mg/dL Calcium (8.4-10.2) mg/dL Total Bilirubin (0.0-1.0) mg/dL Direct Bilirubin (0.0-0.5) mg/dL AST (5-31) U/L ALT (0-31) U/L Alkaline Phosphatase (39-117) U/L Total Protein (6.5-8.0) g/dL Albumin (3.5-5.0) g/dL Lipase (8-78) U/L Urine Color Yellow Urine Appearance Clear Urine pH >= 9.0 (5.0-9.0) Ur Specific Quimby 1.010 (1.005-1.025) Urine Protein 30 (1+) H (Neg-Trace) mg/dL Urine Glucose (UA) Negative (Negative) mg/dL Urine Ketones Trace (Negative) mg/dL Urine Blood Trace H (Negative) Urine Nitrite Negative (Negative) Ur Leukocyte Esterase Negative (Negative) Urine RBC 6-10 H (0-2) /HPF Urine WBC 0-5 (0-5) /HPF Ur Squamous Epith Cells 0-2 (0-2) /HPF Urine Bacteria None Seen (None Seen) Hyaline Casts 0-2 (0-2) /LPF Urine Test NEGATIVE (NEGATIVE) Influenza Type A (PCR) NEGATIVE (Negative) Influenza Type B (PCR) NEGATIVE (Negative) RSV RNA Qual (PCR) NEGATIVE (Negative) SARS-CoV-2 RNA (RT-PCR) NEGATIVE (Negative) 05/19/25 Range/Units 10:00 WBC (4.8-10.8) X10*3/uL RBC (4.20-5.50) X10*6/uL Hgb (12.0-16.0) g/dl Hct (37.0-47.0) % MCV (80.0-98.0) fL MCH (27.0-33.0) pg MCHC (31.0-35.0) g/dl RDW (11.0-16.0) % Plt Count (160-400) X10*3/uL MPV (9.4-12.3) fL Immature Gran % (Auto) (0.0-0.4) % Neut % (Auto) (45-73) % Lymph % (Auto) (20-40) % Dillon % (Auto) (2-11) % Eos % (Auto) (0-4) % Baso % (Auto) (0-2) % Lymph # (Auto) (1.2-4.9) X10*3/uL Dillon # (Auto) (0.1-1.2) X10*3/uL Eos # (Auto) (0.0-0.4) X10*3/uL Baso # (Auto) (0.0-0.2) X10*3/uL Abs Immat Gran (auto) (0.00-0.03) X10*3/uL Absolute Neuts (auto) (2.0-8.3) x10*3/uL Absolute Nucleated RBC (0.0-0.012) X10*3/uL Nucleated RBC % (auto) (0.0-0.2) /100WBC Sodium 139 (135-145) mmol/L Potassium 3.8 (3.3-5.1) mmol/L Chloride 105 (96-108) mmol/L Carbon Dioxide 27 (22-29) mmol/L Anion Gap 11 L (12-20) BUN 9 (9-16) mg/dL Creatinine 0.64 (0.5-1.4) mg/dL Estim Creat Clear Calc 166.9 Estimated GFR > 60 Random Glucose 120 H (60-115) mg/dL Calcium 8.6 (8.4-10.2) mg/dL Total Bilirubin 0.2 (0.0-1.0) mg/dL Direct Bilirubin < 0.2 (0.0-0.5) mg/dL AST 41 H (5-31) U/L ALT 50 H (0-31) U/L Alkaline Phosphatase 114 (39-117) U/L Total Protein 8.1 H (6.5-8.0) g/dL Albumin 4.2 (3.5-5.0) g/dL Lipase 15 (8-78) U/L Urine Color Urine Appearance Urine pH (5.0-9.0) Ur Specific Quimby (1.005-1.025) Urine Protein (Neg-Trace) mg/dL Urine Glucose (UA) (Negative) mg/dL Urine Ketones (Negative) mg/dL Urine Blood (Negative) Urine Nitrite (Negative) Ur Leukocyte Esterase (Negative) Urine RBC (0-2) /HPF Urine WBC (0-5) /HPF Ur Squamous Epith Cells (0-2) /HPF Urine Bacteria (None Seen) Hyaline Casts (0-2) /LPF Urine Test (NEGATIVE) Influenza Type A (PCR) (Negative) Influenza Type B (PCR) (Negative) RSV RNA Qual (PCR) (Negative) SARS-CoV-2 RNA (RT-PCR) (Negative) Prescription Management I considered prescription management with: Other (I prescribed antiemetics: Phenergan suppositories and Zofran ODT. I also prescribed proton pump inhibitor: Prilosec) Chronic Conditions Patient?s care impacted by: Other (Opiate use disorder, asthma) Medications Administered Discontinued Medications Generic Name Dose Route Start Last Admin Trade Name Emma PRN Reason Stop Dose Admin Hydromorphone HCl 1 mg 05/19/25 08:37 05/19/25 08:45 Hydromorphone Hcl 1 Mg/Ml Syringe IVPUSH 05/19/25 08:38 1 mg ONCE ONE Administration Protocol Sodium Chloride 1,000 mls @ 999 mls/hr 05/19/25 08:30 05/19/25 10:04 Ns IV 05/19/25 09:30 Infused .Q1H1M JOHN Infusion Ondansetron HCl 4 mg 05/19/25 08:37 05/19/25 08:45 Ondansetron Hcl 4 Mg/2 Ml Vial IVPUSH 05/19/25 08:38 4 mg ONCE ONE Administration Discharge Plan Discharge Clinical Impression: Viral syndrome, Abdominal pain, Nausea & vomiting Patient Disposition: Home, Self-Care Instructions: Viral Syndrome (ED) Additional Instructions: Your blood work was unremarkable which is reassuring. Your COVID-19, influenza and RSV tests were negative. Your symptoms are consistent with a viral infection. There were many viruses that we can not text for that can make you sick. Take Prilosec (omeprazole) 20 mg pills, 1 pill once a day for 1 month. ?This medication shuts off your acid production and lets the inflammation in your stomach and esophagus heal. Take Zofran ODT 4 mg pills, 1 pill dissolved in your mouth every 8 hours as needed for nausea and vomiting. You Phenergan (promethazine) 25 mg suppositories, 1 suppository per rectum every 6-8 hours as needed for nausea and vomiting. For the next 24 hours, stay on a SALEEM diet (bananas, rice, applesauce, tea and toast). Follow-up with your doctor in 2 days. Please return to the emergency department if your symptoms get worse or if you develop any symptoms that are concerning to you. Prescriptions: New ondansetron 4 mg tablet,disintegrating 4 mg PO Q8H PRN (Reason: nausea and vomiting) Qty: 14 0RF promethazine 25 mg suppository 25 mg AK Q6H PRN (Reason: Nausea, vomiting) Qty: 12 0RF omeprazole 20 mg capsule,delayed release(DR/EC) 20 mg PO DAILY Qty: 30 0RF No Action methadone [Methadone Intensol] 10 mg/mL Concentrate 128 mg PO DAILY Patient Comments: Last dose verified from [facility] administration sheet Rx Instructions: [facility] [phone] fluoxetine 20 mg Capsule 20 mg PO DAILY 30 Days Qty: 30 0RF aripiprazole [Abilify] 20 mg Tablet 20 mg PO DAILY 30 Days Qty: 30 0RF gabapentin 300 mg capsule 300 mg PO TID 30 Days Qty: 90 0RF acetaminophen 500 mg capsule 1,000 mg PO Q6-8H PRN (Reason: pain) Qty: 20 0RF diclofenac sodium 75 mg tablet,delayed release (DR/EC) 75 mg PO BID 10 Days Qty: 20 0RF Rx Instructions: take it with food, DONT TAKE WITH ANY OTHER PAIN MEDICATION lorazepam 0.5 mg tablet 1 mg PO BID ondansetron HCl 4 mg tablet 4 mg PO Q8H PRN (Reason: nausea and vomiting) Qty: 5 0RF Stand Alone Forms: Work/School Release Print Language: [place]ican
[2025-05-19 08:40] LABS: MANUAL DIFF FLAG NO
[2025-05-19 08:50] LABS: Hematocrit 37.5 % (37.0-47.0); Hemoglobin 12.0 g/dl (12.0-16.0); Imm Gran Abs Auto 0.04 X10*3/uL (0.00-0.03); Imm Gran Pct Auto 0.5 % (0.0-0.4); Lymphocytes Absolute Auto 1.2 X10*3/uL (1.2-4.9); Mean Corpuscular HGB Conc 32.0 g/dl (31.0-35.0); Mean Corpuscular Hemoglobin 24.5 pg (27.0-33.0); Mean Corpuscular Volume 76.7 fL (80.0-98.0); NRBC Abs Auto 0.000 X10*3/uL (0.0-0.012); NRBC Pct Auto 0.0 /100WBC (0.0-0.2); Platelet Count 231 X10*3/uL (160-400); Red Blood Count 4.89 X10*6/uL (4.20-5.50); White Blood Count 8.9 X10*3/uL (4.8-10.8)
[2025-05-19 09:08] LABS: Appearance Urine Clear; Glucose Urine UA Negative (Negative); PH >= 9.0 (5.0-9.0); Specific Gravity - Urine 1.010 (1.005-1.025); UMIC TRIGGER UACC YES
[2025-05-19 09:14] LABS: UPreg QC Valid YES
[2025-05-19 10:16] LABS: Resp Syncy Virus RNA Qual PCR NEGATIVE (Negative); SARS COV2 PCR INHOUSE NEGATIVE (Negative)
[2025-05-19 10:29] LABS: Alanine Aminotransferase 50 U/L (0-31); Albumin Level 4.2 g/dL (3.5-5.0); Alkaline Phosphatase 114 U/L (39-117); Anion Gap 11 (12-20); Aspartate Amino Transferase 41 U/L (5-31); Blood Urea Nitrogen 9 mg/dL (9-16); Calcium 8.6 mg/dL (8.4-10.2); Carbon Dioxide 27 mmol/L (22-29); Chloride 105 mmol/L (96-108); Creatinine Clr Calc Pharmacy 166.9; Estimated Glomerular Filt Rate > 60; Lipase 15 U/L (8-78); Potassium 3.8 mmol/L (3.3-5.1); Sodium 139 mmol/L (135-145); Total Protein 8.1 g/dL (6.5-8.0)
[2025-05-19 12:52] VITALS: BP 121/63; PULSE 80; RESP 16; TEMP 36.8; O2SAT 96
[2025-05-19 13:32] VITALS: BP 121/63; PULSE 80; RESP 16; TEMP 36.8; O2SAT 96
== END 2025-05-19 13:33 | disposition home or self-care (01) ==
PROVIDERS: Emergency Provider Emergency Medicine Emergency Medical Services
DX: B34.9 Viral infection, unspecified (principal); R11.2 Nausea with vomiting, unspecified; R10.9 Unspecified abdominal pain; Z03.818 Encounter for observation for suspected exposure to other biological agents ruled out; R53.1 Weakness; R42 Dizziness and giddiness; R10.10 Upper abdominal pain, unspecified; J45.909 Unspecified asthma, uncomplicated; Z87.891 Personal history of nicotine dependence
CPT/HCPCS: 80053; 81001; 81025; 82248; 83690; 85025; 87637; 96361; 96374; 96375; 99284; J1171; J2405